=== PATIENT | male | born 1955 | race Caucasian/White ===

== ENCOUNTER 2019-08-14 18:06 | Emergency (ER) | payer MEDICARE ==
[2019-08-14 18:20] VITALS: BP 163/92; PULSE 94; RESP 18; TEMP 97.8
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
[2019-08-14 19:30] LABS: Appearance,Urine Clear (Clear); Bacteria,Urine Many /hpf; Bilirubin,Urine Negative (Negative); Blood,Urine Trace (Negative); Color,Urine Light Yellow; Glucose,Urine (UA) Negative (Negative); Ketones,Urine Negative (Negative); Leukocyte Esterase,Urine Large (Negative); Nitrite,Urine Negative (Negative); PH, Urine 6.5 (5.0-8.0); Protein,Urine Negative (Negative); RBC,Urine 3 /hpf (0-5); Specific Gravity,Urine 1.003 (1.001-1.035); Urobilinogen,Urine <2.0 mg/dL (<2.0); WBC,Urine 20 /hpf (0-5)
[2019-08-14] MEDS ORDERED: cefTRIAXone 1,000 MG VIAL (IM USE) IM STA (19:33)
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
--- NOTE | 2019-08-14 20:01 | CT ---
EXAMINATION TYPE: CT brain dbine wo con DATE OF EXAM: 08/14/2019 COMPARISON: None HISTORY: Pain after fall CT DLP: 1392.3 mGycm Automated exposure control for dose reduction was used. TECHNIQUE: CT scan of the head and cervical spine are performed without contrast. FINDINGS: There is no acute intracranial hemorrhage, mass effect, or midline shift identified. The ventricles and sulci are within normal limits in size. The globes are intact and the visualized sin uses are clear. Cervical spine is visualized in its entirety from C1 through upper thoracic levels and demonstrates s atisfactory alignment without evidence of acute fracture or dislocation. Prevertebral soft tissue ap pears within normal limits. Advanced multilevel spondylosis changes are noted. The C1-C2 articulation is unremarkable. IMPRESSION: 1. There is no acute fracture or dislocation evident in the cervical spine. 2. No acute intracranial hemorrhage, mass effect, or midline shift is seen.
== END 2019-08-14 20:21 | disposition home or self-care (01) ==
LOC: EEVIPCON 18:06 → EC 18:06
DX: N39.0 Urinary tract infection, site not specified (principal); Z85.528 Personal history of other malignant neoplasm of kidney; Z87.828 Personal history of other (healed) physical injury and trauma; W01.10XA Fall on same level from slipping, tripping and stumbling with subsequent striking against unspecified object, initial encounter; Y92.129 Unspecified place in nursing home as the place of occurrence of the external cause
CPT/HCPCS: 99284; 96372; 81001; 87086; 87077; 87186; 71046; 72125; 70450; J0696

== ENCOUNTER 2020-12-09 09:32 | Inpatient (IN) | payer OTHER, MEDICARE ==
--- NOTE | 2020-12-09 09:49 | ED ---
General Adult HPI - General Chief complaint: Psychiatric Symptoms Stated complaint: Paranoid Time Seen by Provider: 12/09/20 09:33 Source: patient, EMS, RN notes reviewed, old records reviewed Mode of arrival: EMS Limitations: no limitations - History of Present Illness Initial comments: 64-year-old male presenting for psychiatric evaluation. Patient has requested mental health evaluation. He states that he's having visual hallucinations and is feeling angry. He states that he wants to throw a chair through the window. He denies any suicidal or homicidal ideation. He states he was seen by his home care nurse and had requested paramedics transport port to the hospital for psychiatric evaluation. He denies physical complaints. He's been compliant with his medications. He denies alcohol or illicit drugs. - Related Data Previous Rx's Medication Instructions Recorded Sulfamethox-Tmp 800-160Mg [Bactrim 1 each PO Q12HR #20 tab 08/14/19 Ds] Allergies Allergy/AdvReac Type Severity Reaction Status Date / Time No Known Allergies Allergy Verified 12/09/20 09:40 Review of Systems ROS Statement: Those systems with pertinent positive or pertinent negative responses have been documented in the HPI. ROS Other: All systems not noted in ROS Statement are negative. Past Medical History Past Medical History: Hypertension Additional Past Medical History / Comment(s): renal CA with surgery History of Any Multi-Drug Resistant Organisms: Unobtainable Past Surgical History: Orthopedic Surgery Additional Past Surgical History / Comment(s): cryoablation for renal CA Past Psychological History: Schizophrenia Smoking Status: Never smoker Past Alcohol Use History: None Reported Past Drug Use History: None Reported General Exam Limitations: no limitations General appearance: alert, in no apparent distress Head exam: Present: atraumatic, normocephalic Eye exam: Present: normal appearance, PERRL ENT exam: Present: normal exam Neck exam: Present: normal inspection. Absent: tenderness, meningismus Respiratory exam: Present: normal lung sounds bilaterally. Absent: respiratory distress, wheezes Cardiovascular Exam: Present: regular rate, normal rhythm GI/Abdominal exam: Present: soft. Absent: distended, tenderness, guarding Extremities exam: Present: normal inspection, normal capillary refill. Absent: pedal edema Neurological exam: Present: alert, oriented X3, CN II-XII intact. Absent: motor sensory deficit Psychiatric exam: Present: depressed, flat affect. Absent: homicidal ideation, suicidal ideation Skin exam: Present: warm, dry, intact Course Vital Signs 12/09/20 09:33 Temperature 98.6 F Pulse Rate 99 Respiratory 18 Rate Blood Pressure 155/89 O2 Sat by Pulse 100 Oximetry Medical Decision Making - Medical Decision Making Patient has been evaluated by EPS and felt to require inpatient psychiatric evaluation and treatment. Laboratory testing did reveal mild UTI and has been started on antibiotics. He will be admitted to this institution. - Lab Data Result diagrams: 12/09/20 09:54 12/09/20 09:54 Lab Results 12/09/20 12/09/20 12/09/20 Range/Units 09:54 09:54 09:54 WBC 7.0 (3.8-10.6) k/uL RBC 5.04 (4.30-5.90) m/uL Hgb 13.7 (13.0-17.5) gm/dL Hct 42.7 (39.0-53.0) % MCV 84.8 (80.0-100.0) fL MCH 27.3 (25.0-35.0) pg MCHC 32.2 (31.0-37.0) g/dL RDW 14.4 (11.5-15.5) % Plt Count 244 (150-450) k/uL MPV 7.2 Neutrophils % 79 % Lymphocytes % 14 % Monocytes % 4 % Eosinophils % 1 % Basophils % 0 % Neutrophils # 5.6 (1.3-7.7) k/uL Lymphocytes # 1.0 (1.0-4.8) k/uL Monocytes # 0.3 (0-1.0) k/uL Eosinophils # 0.1 (0-0.7) k/uL Basophils # 0.0 (0-0.2) k/uL Sodium 130 L (137-145) mmol/L Potassium 4.2 (3.5-5.1) mmol/L Chloride 97 L (98-107) mmol/L Carbon Dioxide 22 (22-30) mmol/L Anion Gap 11 mmol/L BUN 8 L (9-20) mg/dL Creatinine 0.91 (0.66-1.25) mg/dL Est GFR (CKD-EPI)AfAm >90 (>60 ml/min/1.73 sqM) Est GFR (CKD-EPI)NonAf 88 (>60 ml/min/1.73 sqM) Glucose 110 H (74-99) mg/dL Calcium 9.2 (8.4-10.2) mg/dL Total Bilirubin 0.5 (0.2-1.3) mg/dL AST 22 (17-59) U/L ALT 14 (4-49) U/L Alkaline Phosphatase 86 (38-126) U/L Total Protein 7.0 (6.3-8.2) g/dL Albumin 4.7 (3.5-5.0) g/dL Urine Color Yellow Urine Appearance Cloudy (Clear) Urine pH 7.0 (5.0-8.0) Ur Specific [place] 1.007 (1.001-1.035) Urine Protein Negative (Negative) Urine Glucose (UA) Negative (Negative) Urine Ketones Negative (Negative) Urine Blood Trace H (Negative) Urine Nitrite Positive (Negative) Urine Bilirubin Negative (Negative) Urine Urobilinogen <2.0 (<2.0) mg/dL Ur Leukocyte Esterase Large H (Negative) Urine RBC 7 H (0-5) /hpf Urine WBC 80 H (0-5) /hpf Urine Bacteria Many H (None) /hpf Urine Mucus Few H (None) /hpf Urine Opiates Screen (NotDetected) Ur Oxycodone Screen (NotDetected) Urine Methadone Screen (NotDetected) Ur Propoxyphene Screen (NotDetected) Ur Barbiturates Screen (NotDetected) U Tricyclic Antidepress (NotDetected) Ur Phencyclidine Scrn (NotDetected) Ur Amphetamines Screen (NotDetected) U Methamphetamines Scrn (NotDetected) U Benzodiazepines Scrn (NotDetected) Urine Cocaine Screen (NotDetected) U Marijuana (THC) Screen (NotDetected) Serum Alcohol <10 mg/dL Coronavirus (PCR) (Not Detectd) 12/09/20 12/09/20 Range/Units 09:54 09:54 WBC (3.8-10.6) k/uL RBC (4.30-5.90) m/uL Hgb (13.0-17.5) gm/dL Hct (39.0-53.0) % MCV (80.0-100.0) fL MCH (25.0-35.0) pg MCHC (31.0-37.0) g/dL RDW (11.5-15.5) % Plt Count (150-450) k/uL MPV Neutrophils % % Lymphocytes % % Monocytes % % Eosinophils % % Basophils % % Neutrophils # (1.3-7.7) k/uL Lymphocytes # (1.0-4.8) k/uL Monocytes # (0-1.0) k/uL Eosinophils # (0-0.7) k/uL Basophils # (0-0.2) k/uL Sodium (137-145) mmol/L Potassium (3.5-5.1) mmol/L Chloride (98-107) mmol/L Carbon Dioxide (22-30) mmol/L Anion Gap mmol/L BUN (9-20) mg/dL Creatinine (0.66-1.25) mg/dL Est GFR (CKD-EPI)AfAm (>60 ml/min/1.73 sqM) Est GFR (CKD-EPI)NonAf (>60 ml/min/1.73 sqM) Glucose (74-99) mg/dL Calcium (8.4-10.2) mg/dL Total Bilirubin (0.2-1.3) mg/dL AST (17-59) U/L ALT (4-49) U/L Alkaline Phosphatase (38-126) U/L Total Protein (6.3-8.2) g/dL Albumin (3.5-5.0) g/dL Urine Color Urine Appearance (Clear) Urine pH (5.0-8.0) Ur Specific [place] (1.001-1.035) Urine Protein (Negative) Urine Glucose (UA) (Negative) Urine Ketones (Negative) Urine Blood (Negative) Urine Nitrite (Negative) Urine Bilirubin (Negative) Urine Urobilinogen (<2.0) mg/dL Ur Leukocyte Esterase (Negative) Urine RBC (0-5) /hpf Urine WBC (0-5) /hpf Urine Bacteria (None) /hpf Urine Mucus (None) /hpf Urine Opiates Screen Detected H (NotDetected) Ur Oxycodone Screen Not Detected (NotDetected) Urine Methadone Screen Not Detected (NotDetected) Ur Propoxyphene Screen Not Detected (NotDetected) Ur Barbiturates Screen Not Detected (NotDetected) U Tricyclic Antidepress Detected H (NotDetected) Ur Phencyclidine Scrn Not Detected (NotDetected) Ur Amphetamines Screen Not Detected (NotDetected) U Methamphetamines Scrn Not Detected (NotDetected) U Benzodiazepines Scrn Not Detected (NotDetected) Urine Cocaine Screen Not Detected (NotDetected) U Marijuana (THC) Screen Not Detected (NotDetected) Serum Alcohol mg/dL Coronavirus (PCR) Not Detected (Not Detectd) Disposition Clinical Impression: Acute psychosis, UTI (urinary tract infection) Disposition: ADMITTED IP TO THIS [facility] Condition: Stable Is patient prescribed a controlled substance at d/c from ED?: No Referrals: None,Stated [Primary Care Provider] - 1-2 days Decision to Admit Reason: Admit from EC Decision Date: 12/09/20 Decision Time: 12:03
[2020-12-09 10:09] LABS: Basophils % (A) 0 %; Eosinophils # (A) 0.1 k/uL (0-0.7); Eosinophils % (A) 1 %; HCT 42.7 % (39.0-53.0); HGB 13.7 gm/dL (13.0-17.5); Lymphocytes % (A) 14 %; MCH 27.3 pg (25.0-35.0); MCHC 32.2 g/dL (31.0-37.0); MCV 84.8 fL (80.0-100.0); Mean Platelet Volume 7.2; Monocytes # (A) 0.3 k/uL (0-1.0); Monocytes % (A) 4 %; Neutrophils # (A) 5.6 k/uL (1.3-7.7); Neutrophils % (A) 79 %; Platelet Count 244 k/uL (150-450); RBC 5.04 m/uL (4.30-5.90); RDW 14.4 % (11.5-15.5)
[2020-12-09 10:22] LABS: Appearance,Urine Cloudy (Clear); Bacteria,Urine Many /hpf; Bilirubin,Urine Negative (Negative); Blood,Urine Trace (Negative); Color,Urine Yellow; Glucose,Urine (UA) Negative (Negative); Ketones,Urine Negative (Negative); Leukocyte Esterase,Urine Large (Negative); Mucus,Urine Few /hpf; Nitrite,Urine Positive (Negative); Protein,Urine Negative (Negative); RBC,Urine 7 /hpf (0-5); Specific Gravity,Urine 1.007 (1.001-1.035); Urobilinogen,Urine <2.0 mg/dL (<2.0); WBC,Urine 80 /hpf (0-5)
[2020-12-09 10:27] LABS: Amphetamine Screen,Urine Not Detected (NotDetected); Barbiturate Screen,Urine Not Detected (NotDetected); Benzodiazepines Screen,Urine Not Detected (NotDetected); Cocaine Screen,Urine Not Detected (NotDetected); Methadone Screen, Urine Not Detected (NotDetected); Opiate Screen,Urine Detected (NotDetected); Oxycodone Screen, Urine Not Detected (NotDetected); Phencyclidine Screen,Urine Not Detected (NotDetected); Tricyclic Antidepressant,Urine Detected (NotDetected); Urn Cannabinoid Scrn Not Detected (NotDetected)
[2020-12-09 10:28] LABS: ALT 14 U/L (4-49); AST 22 U/L (17-59); African American GFR (CKD) >90 (>60 ml/min/1.73 sqM); Albumin 4.7 g/dL (3.5-5.0); Alcohol <10 mg/dL; Alkaline Phosphatase 86 U/L (38-126); Anion Gap 11 mmol/L; Blood Urea Nitrogen 8 mg/dL (9-20); Calcium 9.2 mg/dL (8.4-10.2); Carbon Dioxide 22 mmol/L (22-30); Chloride 97 mmol/L (98-107); Glucose 110 mg/dL (74-99); Non-African American GFR(CKD) 88 (>60 ml/min/1.73 sqM); Potassium 4.2 mmol/L (3.5-5.1); Sodium 130 mmol/L (137-145); Total Bilirubin 0.5 mg/dL (0.2-1.3)
[2020-12-09] MEDS ORDERED: CEPHALEXIN 500 MG CAP PO STA (10:32)
[2020-12-09] MEDS ORDERED: LORazepam 1 MG TAB PO PRN (14:08)
[2020-12-09] MEDS ORDERED: MAG HYDROX/AL HYDROX/SIMETH 30 ML CUP PO PRN (14:08)
[2020-12-09] MEDS ORDERED: MAGNESIUM HYDROXIDE 2,400 MG/10 ML CUP PO PRN (14:08)
[2020-12-09] MEDS ORDERED: MELATONIN 5 MG TABLET PO PRN (14:11)
[2020-12-09] MEDS ORDERED: LORazepam 2 MG/ML INJ IM PRN (14:11)
[2020-12-09] MEDS: cloZAPine 100 MG TAB PO SCH ×2 (16:28→21:59)
[2020-12-09] MEDS: PANTOPRAZOLE 40 MG TABLET PO SCH (16:29)
[2020-12-09] MEDS: clonazePAM 1 MG TAB PO SCH (21:59)
[2020-12-10] MEDS: clonazePAM 1 MG TAB PO SCH ×2 (08:55→22:29)
[2020-12-10] MEDS: PANTOPRAZOLE 40 MG TABLET PO SCH ×2 (08:55→17:26)
[2020-12-10] MEDS: cloZAPine 100 MG TAB PO SCH ×3 (08:55→22:29)
[2020-12-10] MEDS: amLODIPine 2.5 MG TAB PO SCH (08:55)
[2020-12-10] MEDS: ACETAMINOPHEN TAB 325 MG TAB PO PRN (08:56)
[2020-12-10] MEDS: SENNOSIDES-DOCUSATE SODIUM 1 EACH TAB PO PRN (08:56)
[2020-12-10] MEDS ORDERED: SERTRALINE 50 MG TAB PO SCH (09:00)
--- NOTE | 2020-12-10 10:12 | P.CONS ---
History of Present Illness - Reason for Consult Consult date: 12/10/20 Medical management - History of Present Illness This is 64-year-old white male who has been admitted to the mental health unit for psychiatric evaluation. Patient has been having visual hallucinations. At the time of examination patient does not appear to be in distress. He denies chest pain or shortness of breath. Denies abdominal pain nausea or vomiting. Review of Systems 10 systems reviewed, pertinent positive and negative findings as in the HPI. No chest pain, no abdominal pain Past Medical History Past Medical History: Hypertension Additional Past Medical History / Comment(s): renal CA with surgery History of Any Multi-Drug Resistant Organisms: Unobtainable Past Surgical History: Orthopedic Surgery Additional Past Surgical History / Comment(s): cryoablation for renal CA Past Psychological History: Schizophrenia Smoking Status: Never smoker Past Alcohol Use History: None Reported Past Drug Use History: None Reported Medications and Allergies Home Medications Medication Instructions Recorded Confirmed Type Acetaminophen Tab [Tylenol Tab] 1,000 mg PO TID PRN 12/09/20 12/09/20 History Melatonin 5 mg PO HS PRN 12/09/20 12/09/20 History Omeprazole 40 mg PO AC-BID 12/09/20 12/09/20 History Sennosides/Docusate Sodium [Senna 2 tab PO DAILY PRN 12/09/20 12/09/20 History Plus 8.6-50 mg Tablet] Sertraline [Zoloft] 50 mg PO DAILY 12/09/20 12/09/20 History amLODIPine [Norvasc] 2.5 mg PO DAILY 12/09/20 12/09/20 History cloZAPine [Clozaril] 100 mg PO DAILY@0900 12/09/20 12/09/20 History cloZAPine [Clozaril] 200 mg PO DAILY@1600 12/09/20 12/09/20 History cloZAPine [Clozaril] 400 mg PO HS@2100 12/09/20 12/09/20 History clonazePAM [KlonoPIN] 1 mg PO BID 12/09/20 12/09/20 History Allergies Allergy/AdvReac Type Severity Reaction Status Date / Time No Known Allergies Allergy Verified 12/09/20 15:22 Physical Exam Vitals: Vital Signs Temp Pulse Pulse Pulse Resp BP BP 12/10/20 09:00 96.1 F L 95 20 118/65 12/09/20 16:30 95 128/75 12/09/20 15:39 98.0 F 12/09/20 14:54 96.2 F L 94 16 157/100 Constitutional: No acute distress, conversant, pleasant Eyes: Anicteric sclerae, moist conjunctiva ENMT: NC/AT,Oropharynx clear, no erythema, exudates Neck:Supple, FROM, no masses, or JVD Lungs: Clear to auscultation, Clear to percussion, Normal respiratory effort, no accessory muscle use Cardiovascular: Heart regular in rate and rhythm, No murmurs, gallops, or rubs no peripheral edema Abdominal: Soft Nontender, nom distended, no guarding, no rebound or rigidity Skin: Normal temperature, tone, texture, turgor Extremities:No digital cyanosis No clubbing, Pedal pulses intact and symmetrical Radial pulses intact and symmetrical Normal gait and station, No calf tenderness Psychiatric: Alert and oriented Neuro: Muscles Strength 5/5 in all 4 extremities Results CBC & Chem 7: 12/09/20 09:54 12/09/20 09:54 Labs: Abnormal Lab Results - Last 24 Hours (Table) 12/09/20 12/09/20 12/09/20 Range/Units 09:54 09:54 09:54 Sodium 130 L (137-145) mmol/L Chloride 97 L (98-107) mmol/L BUN 8 L (9-20) mg/dL Glucose 110 H (74-99) mg/dL Urine Blood Trace H (Negative) Ur Leukocyte Esterase Large H (Negative) Urine RBC 7 H (0-5) /hpf Urine WBC 80 H (0-5) /hpf Urine Bacteria Many H (None) /hpf Urine Mucus Few H (None) /hpf Urine Opiates Screen Detected H (NotDetected) U Tricyclic Antidepress Detected H (NotDetected) Microbiology - Last 24 Hours (Table) 12/09/20 09:54 Urine Culture - Preliminary Urine,Voided Assessment and Plan Plan: 1. Depression: Management per psychiatry: Continue Zoloft and clonazepine 2. Anxiety: Continue Ativan when necessary 3. Essential hypertension: Continue Norvasc 4. Acute UTI unspecified organism on location: Start oral Bactrim for 5 days Thank you for the consultation
[2020-12-10] MEDS: SULFAMETHOX-TMP 800-160MG 1 EACH TAB PO SCH ×2 (10:21→22:29)
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
[2020-12-10 16:13] LABS: Hemoglobin A1C 5.6 % (4.0-6.0)
[2020-12-11] MEDS ORDERED: SERTRALINE 50 MG TAB PO SCH (09:00)
[2020-12-11] MEDS: amLODIPine 2.5 MG TAB PO SCH (09:05)
[2020-12-11] MEDS: PANTOPRAZOLE 40 MG TABLET PO SCH ×2 (09:05→17:54)
[2020-12-11] MEDS: cloZAPine 100 MG TAB PO SCH ×3 (09:06→21:21)
[2020-12-11] MEDS: SULFAMETHOX-TMP 800-160MG 1 EACH TAB PO SCH ×2 (09:06→21:21)
[2020-12-11] MEDS: clonazePAM 1 MG TAB PO SCH ×2 (09:06→21:21)
[2020-12-11] MEDS: ACETAMINOPHEN TAB 325 MG TAB PO PRN ×2 (09:07→15:15)
[2020-12-11] MEDS: SENNOSIDES-DOCUSATE SODIUM 1 EACH TAB PO PRN (10:23)
--- NOTE | 2020-12-11 11:36 | P.PN ---
Progress Note - Text Progress Note Date: 12/11/20 Interval History: Patient was seen resting in bed and was directable and agreeable to speak with short story writer in the office. The patient reports that he is feeling better today. He states that he was able to sleep well. He denies any issues with his appetite. He is not reporting any suicidal or homicidal ideation, intention, and/or plan. The patient is not reporting any auditory or visual hallucinations but states that he feels like someone is constantly poking at him. The patient also continues to make some sabianist statements believing that he will be the one to home back the end times. The patient is otherwise adherent with his medications and is not reporting any significant side effects. He has been able to participate in group and milieu activities. Mental Status Exam: General Appearance: Patient appears to be stated age is alert, directable, and cooperative. Good hygiene and grooming. Behavior: Patient is calmly seated without any agitated behavior. Psychomotor slowing is evident. Speech: Patient's speech is fluent and nonpressured. Mood/Affect: Mood is improving mildly, affect is congruent and blunted. Suicidality/Homicidality: Patient denies having any suicidal or homicidal ideation intent or plan. Perceptions: Patient denies any visual hallucinations and denies any auditory hallucinations. The patient does endorse tactile hallucinations. Though content/process: Catholic preoccupation and grandiose delusions are endorsed. Thought process is typically linear and logical unless he goes on his rent about his sabianist preoccupation. Memory and concentration: AOX3, grossly intact for the purposes of this session Judgment and insight: Improving mildly Assessment Schizophrenia Plan: -Patient continues to meet criteria for inpatient psychiatric admission for symptom stabilization and safety. Patient has signed adult voluntary form and medication consent and was placed in patient's chart. -Medications: Clozaril 100 mg by mouth every morning, 200 mg by mouth every afternoon, and 400 mg by mouth daily at bedtime. ANC WNL. Klonopin 1 mg by mouth twice a day for anxiety Discontinue Zoloft due to concern for hyponatremia. Bactrim for management of urinary tract infection. -When necessary Ativan and Haldol for agitation/aggression. -SW on board for discharge planning. Encouraged the patient to participate in milieu.
[2020-12-12] MEDS: ACETAMINOPHEN TAB 500 MG TAB PO PRN ×2 (02:47→15:15)
[2020-12-12 07:07] LABS: Basophils % (A) 1 %; Eosinophils # (A) 0.3 k/uL (0-0.7); Eosinophils % (A) 4 %; HCT 44.7 % (39.0-53.0); Lymphocytes # (A) 1.1 k/uL (1.0-4.8); Lymphocytes % (A) 19 %; MCH 28.8 pg (25.0-35.0); MCHC 33.5 g/dL (31.0-37.0); Mean Platelet Volume 7.2; Monocytes # (A) 0.5 k/uL (0-1.0); Monocytes % (A) 8 %; Neutrophils # (A) 4.1 k/uL (1.3-7.7); Neutrophils % (A) 68 %; Platelet Count 241 k/uL (150-450); RDW 14.4 % (11.5-15.5); WBC 6.1 k/uL (3.8-10.6)
[2020-12-12 07:28] LABS: Calcium 9.3 mg/dL (8.4-10.2)
[2020-12-12] MEDS: cloZAPine 100 MG TAB PO SCH ×4 (07:59→21:26)
[2020-12-12] MEDS: PANTOPRAZOLE 40 MG TABLET PO SCH ×2 (07:59→15:15)
[2020-12-12] MEDS: amLODIPine 2.5 MG TAB PO SCH (08:03)
[2020-12-12] MEDS: SULFAMETHOX-TMP 800-160MG 1 EACH TAB PO SCH ×2 (08:03→21:26)
[2020-12-12] MEDS: clonazePAM 1 MG TAB PO SCH ×2 (08:04→20:46)
--- NOTE | 2020-12-12 11:04 | P.PN ---
Progress Note - Text Progress Note Date: 12/12/20 Interval History: Patient reports that he is feeling okay today. He expresses that he needs his pain medication but does not endorse any specific site for pain. He is currently not reporting any suicidal or homicidal ideation, intention, and/or plan. He is not reporting any auditory or visual hallucinations. He is denying any paranoia or other delusions. Patient reports that he has been eating and sleeping well. He has been adherent with his medications and is not reporting any chest pain, shortness of breath, tremors, or other notable side effects aside from excessive drooling. As per discussion with the patient's guardian, the patient is apparently sounding as if he is at baseline. Anticipated discharge tomorrow. Mental Status Exam: General Appearance: Patient appears to be stated age is alert, directable, and cooperative. Good hygiene and grooming. Behavior: Patient is calmly seated without any agitated behavior. Psychomotor slowing is evident. Speech: Patient's speech is fluent and nonpressured. Mood/Affect: Mood is improving mildly, affect is congruent and blunted. Suicidality/Homicidality: Patient denies having any suicidal or homicidal ideation intent or plan. Perceptions: Patient denies any visual hallucinations and denies any auditory hallucinations. Though content/process: The patient does not endorse any delusional thought content today. Thought process appears linear and logical and short conversation. Memory and concentration: AOX3, grossly intact for the purposes of this session Judgment and insight: Improving mildly Assessment Schizophrenia Plan: -Patient continues to meet criteria for inpatient psychiatric admission for symptom stabilization and safety. Patient has signed adult voluntary form and medication consent and was placed in patient's chart. -Medications: Clozaril 100 mg by mouth every morning, 200 mg by mouth every afternoon, and 400 mg by mouth daily at bedtime. ANC WNL. Klonopin 1 mg by mouth twice a day for anxiety Bactrim for management of urinary tract infection. -When necessary Ativan and Haldol for agitation/aggression. -SW on board for discharge planning. Encouraged the patient to participate in milieu.
[2020-12-13] MEDS: ACETAMINOPHEN TAB 500 MG TAB PO PRN ×2 (02:18→12:03)
[2020-12-13 02:26] VITALS: RESP 14
[2020-12-13] MEDS: PANTOPRAZOLE 40 MG TABLET PO SCH (08:03)
[2020-12-13] MEDS: SULFAMETHOX-TMP 800-160MG 1 EACH TAB PO SCH (08:03)
[2020-12-13] MEDS: amLODIPine 2.5 MG TAB PO SCH (08:05)
[2020-12-13 08:06] VITALS: BP 112/62; PULSE 92
[2020-12-13] MEDS: clonazePAM 1 MG TAB PO SCH (08:06)
[2020-12-13] MEDS ORDERED: CYCLOBENZAPRINE 5 MG TAB PO STA (09:09)
[2020-12-13 09:16] VITALS: TEMP 97.7
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
== END 2020-12-13 13:05 | disposition home or self-care (01) | DRG 885 ==
LOC: EC 09:32 → 3MHU 14:02
PROVIDERS: ADMIT Psychiatry & Neurology Psychiatry; ATTEND Psychiatry & Neurology Psychiatry
DX: F20.9 Schizophrenia, unspecified (principal); E87.1 Hypo-osmolality and hyponatremia; N39.0 Urinary tract infection, site not specified; F41.9 Anxiety disorder, unspecified; G47.00 Insomnia, unspecified; I10 Essential (primary) hypertension; Z79.899 Other long term (current) drug therapy; Z85.528 Personal history of other malignant neoplasm of kidney; Z20.822 Contact with and (suspected) exposure to COVID-19
CPT/HCPCS: 36415; 80048; 80053; 80061; 80306; 80320; 81001; 82075; 83036; 84443; 85025; 87077; 87086; 87186; 87635; 99285

== ENCOUNTER 2021-04-27 08:52 | Inpatient (IN) | payer OTHER, MEDICARE ==
--- NOTE | 2021-04-27 09:05 | ED ---
General Adult HPI - General Chief complaint: Abdominal Pain Stated complaint: SOB Time Seen by Provider: 04/27/21 08:55 Source: patient, EMS, RN notes reviewed, old records reviewed Mode of arrival: EMS Limitations: no limitations - History of Present Illness Initial comments: This is a 65-year-old male who presents to the emergency department with past medical history significant for schizophrenia. Patient also states he has high blood pressure. Patient comes in today stating that he was feeling a little weak a little bit short of breath and also he felt like he was getting cabin fever in his apartment so he wanted to get out. Patient states he called EMS and brought him in. Patient denies any chest pain or palpitations. Patient denies any fever chills or cough. Patient states he may have had a run-in with a COVID positive patient. Patient denies any abdominal pain patient denies nausea vomiting or diarrhea. Patient states every day when he wakes up he feels weak for the first couple hours in the day and he usually resolves. Patient states today with a cabin fever sensation he felt as though he wanted to get out. - Related Data Home Medications Medication Instructions Recorded Confirmed Acetaminophen Tab [Tylenol] 1,000 mg PO TID PRN 12/09/20 12/09/20 Omeprazole 40 mg PO AC-BID 12/09/20 12/09/20 Sennosides/Docusate Sodium [Senna 2 tab PO DAILY PRN 12/09/20 12/09/20 Plus 8.6-50 mg Tablet] Previous Rx's Medication Instructions Recorded Melatonin 5 mg PO HS PRN 30 Days tab 12/13/20 Sulfamethox-Tmp 800-160Mg [Bactrim 1 each PO BID 2 Days #4 tab 12/13/20 DS 800-160 mg] amLODIPine [Norvasc] 2.5 mg PO DAILY 30 Days tab 12/13/20 cloZAPine [Clozaril] 100 mg PO DAILY@0900 30 Days tab 12/13/20 cloZAPine [Clozaril] 200 mg PO DAILY@1600 30 Days tab 12/13/20 cloZAPine [Clozaril] 400 mg PO HS@2100 30 Days tab 12/13/20 clonazePAM [KlonoPIN] 1 mg PO BID 30 Days tab 12/13/20 Allergies Allergy/AdvReac Type Severity Reaction Status Date / Time No Known Allergies Allergy Verified 04/27/21 09:06 Review of Systems ROS Statement: Those systems with pertinent positive or pertinent negative responses have been documented in the HPI. ROS Other: All systems not noted in ROS Statement are negative. Past Medical History Past Medical History: Hypertension Additional Past Medical History / Comment(s): renal CA with surgery History of Any Multi-Drug Resistant Organisms: Unobtainable Past Surgical History: Orthopedic Surgery Additional Past Surgical History / Comment(s): cryoablation for renal CA Past Psychological History: Schizophrenia Smoking Status: Never smoker Past Alcohol Use History: None Reported Past Drug Use History: None Reported General Exam - General Exam Comments Initial Comments: GENERAL: Patient is well-developed and well-nourished. Patient is nontoxic and well- hydrated and is in no acute distress. ENT: Neck is soft and supple. No significant lymphadenopathy is noted. Oropharynx is clear. Moist mucous membranes. Neck has full range of motion without eliciting any pain. EYES: The sclera were anicteric and conjunctiva were pink and moist. Extraocular movements were intact and pupils were equal round and reactive to light. Eyelids were unremarkable. PULMONARY: Unlabored respirations. Good breath sounds bilaterally. No audible rales rhonchi or wheezing was noted. CARDIOVASCULAR: There is a regular rate and rhythm without any murmurs gallops or rubs. ABDOMEN: Soft and nontender with normal bowel sounds. Patient has a small ventral hernia SKIN: Skin is clear with no lesions or rashes and otherwise unremarkable. NEUROLOGIC: Patient is alert and oriented x3. Cranial nerves II through XII are grossly intact. Motor and sensory are also intact. Normal speech, volume and content. Symmetrical smile. MUSCULOSKELETAL: Normal extremities with adequate strength and full range of motion. No lower extremity swelling or edema. No calf tenderness. LYMPHATICS: No significant lymphadenopathy is noted PSYCHIATRIC: Normal psychiatric evaluation. Limitations: no limitations Course Vital Signs 04/27/21 08:54 Temperature 96.9 F L Pulse Rate 96 Respiratory 17 Rate Blood Pressure 135/92 O2 Sat by Pulse 94 L Oximetry Medical Decision Making - Medical Decision Making EKG shows sinus rhythm with occasional PVC at a rate of 92 bpm OR interval 236 dresses 98 QT interval 370 QTC is 467. Patient's EKG shows no ST segment elevat ion or depression. Chest x-ray shows no acute normalities. New. Patient's urine shows no infectio n. I gave the patient 2 g of Rocephin. Patient's troponin was elevated 0.5 though the patient is not expressing any chest pain started the patient on heparin. I spoke with the [facility] they agreed to admit the patient to the patient I wrote admitting orders I consult cardiology continued heparin and aspirin and Nitropaste on the floor. - Lab Data Result diagrams: 04/27/21 10:31 04/27/21 10:31 Lab Results 04/27/21 04/27/21 04/27/21 Range/Units 10:31 10: 10:31 WBC 14.5 H (3.8-10.6) k/uL RBC 5.25 (4.30-5.90) m/uL Hgb 14.3 (13.0-17.5) gm/dL Hct 45.8 (39.0-53.0) % MCV 87.2 (80.0-100.0) fL MCH 27.3 (25.0-35.0) pg MCHC 31.3 (31.0-37.0) g/dL RDW 14.3 (11.5-15.5) % Plt Count 288 (150-450) k/uL MPV 7.7 Neutrophils % 89 % Lymphocytes % 6 % Monocytes % 5 % Eosinophils % 1 % Basophils % 0 % Neutrophils # 12.9 H (1.3-7.7) k/uL Lymphocytes # 0.8 L (1.0-4.8) k/uL Monocytes # 0.7 (0-1.0) k/uL Eosinophils # 0.1 (0-0.7) k/uL Basophils # 0.0 (0-0.2) k/uL Sodium 135 L (137-145) mmol/L Potassium 4.4 (3.5-5.1) mmol/L Chloride 100 (98-107) mmol/L Carbon Dioxide 24 (22-30) mmol/L Anion Gap 11 mmol/L BUN 14 (9-20) mg/dL Creatinine 0.97 (0.66-1.25) mg/dL Est GFR (CKD-EPI)AfAm >90 (>60 ml/min/1.73 sqM) Est GFR (CKD-EPI)NonAf 82 (>60 ml/min/1.73 sqM) Glucose 113 H (74-99) mg/dL Calcium 9.6 (8.4-10.2) mg/dL Total Bilirubin 0.5 (0.2-1.3) mg/dL AST 24 (17-59) U/L ALT 18 (4-49) U/L Alkaline Phosphatase 76 (38-126) U/L Troponin I (0.000-0.034) ng/mL Total Protein 6.9 (6.3-8.2) g/dL Albumin 4.4 (3.5-5.0) g/dL Urine Color Yellow Urine Appearance Cloudy (Clear) Urine pH 6.5 (5.0-8.0) Ur Specific [place] 1.014 (1.001-1.035) Urine Protein 1+ H (Negative) Urine Glucose (UA) Negative (Negative) Urine Ketones Negative (Negative) Urine Blood Trace H (Negative) Urine Nitrite Negative (Negative) Urine Bilirubin Negative (Negative) Urine Urobilinogen <2.0 (<2.0) mg/dL Ur Leukocyte Esterase Large H (Negative) Urine RBC 2 (0-5) /hpf Urine WBC 36 H (0-5) /hpf Ur Squamous Epith Cells 8 H (0-4) /hpf Urine Bacteria Many H (None) /hpf Urine Mucus Few H (None) /hpf Coronavirus (PCR) (Not Detectd) 04/27/21 04/27/21 Range/Units 10:31 10:31 WBC (3.8-10.6) k/uL RBC (4.30-5.90) m/uL Hgb (13.0-17.5) gm/dL Hct (39.0-53.0) % MCV (80.0-100.0) fL MCH (25.0-35.0) pg MCHC (31.0-37.0) g/dL RDW (11.5-15.5) % Plt Count (150-450) k/uL MPV Neutrophils % % Lymphocytes % % Monocytes % % Eosinophils % % Basophils % % Neutrophils # (1.3-7.7) k/uL Lymphocytes # (1.0-4.8) k/uL Monocytes # (0-1.0) k/uL Eosinophils # (0-0.7) k/uL Basophils # (0-0.2) k/uL Sodium (137-145) mmol/L Potassium (3.5-5.1) mmol/L Chloride (98-107) mmol/L Carbon Dioxide (22-30) mmol/L Anion Gap mmol/L BUN (9-20) mg/dL Creatinine (0.66-1.25) mg/dL Est GFR (CKD-EPI)AfAm (>60 ml/min/1.73 sqM) Est GFR (CKD-EPI)NonAf (>60 ml/min/1.73 sqM) Glucose (74-99) mg/dL Calcium (8.4-10.2) mg/dL Total Bilirubin (0.2-1.3) mg/dL AST (17-59) U/L ALT (4-49) U/L Alkaline Phosphatase (38-126) U/L Troponin I 0.524 H* (0.000-0.034) ng/mL Total Protein (6.3-8.2) g/dL Albumin (3.5-5.0) g/dL Urine Color Urine Appearance (Clear) Urine pH (5.0-8.0) Ur Specific [place] (1.001-1.035) Urine Protein (Negative) Urine Glucose (UA) (Negative) Urine Ketones (Negative) Urine Blood (Negative) Urine Nitrite (Negative) Urine Bilirubin (Negative) Urine Urobilinogen (<2.0) mg/dL Ur Leukocyte Esterase (Negative) Urine RBC (0-5) /hpf Urine WBC (0-5) /hpf Ur Squamous Epith Cells (0-4) /hpf Urine Bacteria (None) /hpf Urine Mucus (None) /hpf Coronavirus (PCR) Not Detected (Not Detectd) Critical Care Time Critical Care Time: Yes Total Critical Care Time: 35 Disposition Clinical Impression: Non-STEMI (non-ST elevated myocardial infarction), Urinary tract infection Disposition: ADMITTED IP TO THIS HOSP Referrals: None,Stated [Primary Care Provider] - 1-2 days Time of Disposition: 12:19
[2021-04-27] MEDS ORDERED: SODIUM CHLORIDE 0.9% 500 ML 500 ML IV STA (09:31)
--- NOTE | 2021-04-27 10:51 | XR ---
EXAMINATION TYPE: XR chest 2V DATE OF EXAM: 04/27/2021 COMPARISON: Chest x-ray August 14, 2019 HISTORY: Weakness. TECHNIQUE: Frontal and lateral views of the chest are obtained. FINDINGS: Improved inspiration. There is no focal air space opacity, pleural effusion, or pneumothor ax seen. The cardiac silhouette size is within normal limits. The osseous structures are intact. IMPRESSION: No acute process.
[2021-04-27 10:52] LABS: Basophils % (A) 0 %; Eosinophils # (A) 0.1 k/uL (0-0.7); Eosinophils % (A) 1 %; HCT 45.8 % (39.0-53.0); HGB 14.3 gm/dL (13.0-17.5); Lymphocytes # (A) 0.8 k/uL (1.0-4.8); Lymphocytes % (A) 6 %; MCH 27.3 pg (25.0-35.0); MCHC 31.3 g/dL (31.0-37.0); MCV 87.2 fL (80.0-100.0); Mean Platelet Volume 7.7; Monocytes # (A) 0.7 k/uL (0-1.0); Monocytes % (A) 5 %; Neutrophils # (A) 12.9 k/uL (1.3-7.7); Neutrophils % (A) 89 %; Platelet Count 288 k/uL (150-450); RBC 5.25 m/uL (4.30-5.90); RDW 14.3 % (11.5-15.5); WBC 14.5 k/uL (3.8-10.6)
[2021-04-27 11:13] LABS: ALT 18 U/L (4-49); AST 24 U/L (17-59); African American GFR (CKD) >90 (>60 ml/min/1.73 sqM); Albumin 4.4 g/dL (3.5-5.0); Alkaline Phosphatase 76 U/L (38-126); Anion Gap 11 mmol/L; Blood Urea Nitrogen 14 mg/dL (9-20); Calcium 9.6 mg/dL (8.4-10.2); Carbon Dioxide 24 mmol/L (22-30); Chloride 100 mmol/L (98-107); Glucose 113 mg/dL (74-99); Non-African American GFR(CKD) 82 (>60 ml/min/1.73 sqM); Potassium 4.4 mmol/L (3.5-5.1); Sodium 135 mmol/L (137-145); Total Bilirubin 0.5 mg/dL (0.2-1.3); Total Protein 6.9 g/dL (6.3-8.2)
[2021-04-27 11:32] LABS: Appearance,Urine Cloudy (Clear); Bacteria,Urine Many /hpf; Bilirubin,Urine Negative (Negative); Blood,Urine Trace (Negative); Color,Urine Yellow; Glucose,Urine (UA) Negative (Negative); Ketones,Urine Negative (Negative); Leukocyte Esterase,Urine Large (Negative); Mucus,Urine Few /hpf; Nitrite,Urine Negative (Negative); PH, Urine 6.5 (5.0-8.0); Protein,Urine 1+ (Negative); RBC,Urine 2 /hpf (0-5); Specific Gravity,Urine 1.014 (1.001-1.035); Squamous Epithelial Cell,Urine 8 /hpf (0-4); Urobilinogen,Urine <2.0 mg/dL (<2.0); WBC,Urine 36 /hpf (0-5)
[2021-04-27] MEDS ORDERED: cefTRIAXone IN SWFI 1,000 MG/10 ML SYRINGE IVP STA (11:51)
[2021-04-27] MEDS ORDERED: HEPARIN SODIUM 1,000 UN/ML (10ML VL) IV ONE (12:18)
[2021-04-27] MEDS ORDERED: ASPIRIN 81 MG PO STA (12:20)
[2021-04-27] MEDS ORDERED: NITROGLYCERIN SL TABS 0.4 MG TAB SUBLINGUAL PRN (12:20)
[2021-04-27] MEDS ORDERED: HEPARIN SOD,PORK IN 0.45% NACL 25,000 UNIT in 0.45% NACL 1 250ML.BAG IV SCH (12:30)
[2021-04-27] MEDS: NITROGLYCERIN OINT 1 INCH/GM PACKET TOPICAL SCH ×2 (18:26→23:02)
[2021-04-27] MEDS ORDERED: CYCLOBENZAPRINE 5 MG TAB PO PRN (18:50)
[2021-04-27] MEDS ORDERED: SENNOSIDES-DOCUSATE SODIUM 1 EACH TAB PO PRN (18:50)
[2021-04-27] MEDS ORDERED: MELATONIN 5 MG TABLET PO PRN (18:50)
--- NOTE | 2021-04-27 20:21 | P.HPIM ---
History of Present Illness H&P Date: 04/27/21 Chief Complaint: Abdominal pain 65-year-old male who presents to the emergency department with past medical history significant for schizophrenia. Patient also states he has high blood pressure. Patient comes in today stating that he was feeling a little weak a little bit short of breath and also he felt like he was getting cabin fever in his apartment so he wanted to get out. Patient states he called EMS and brought him in. Patient denies any chest pain or palpitations. Patient denies any fever chills or cough. Patient states he may have had a run-in with a COVID positive patient. Patient denies any abdominal pain patient denies nausea vomiting or diarrhea. Patient states every day when he wakes up he feels weak for the first couple hours in the day and he usually resolves. Patient states today with a cabin fever sensation he felt as though he wanted to get out. EKG shows sinus rhythm with occasional PVC at a rate of 92 bpm UT interval 236 dresses 98 QT interval 370 QTC is 467. Patient's EKG shows no ST segment elevation or depression. Chest x-ray shows no acute normalities. New. Patient's urine shows no infection. Patient received Rocephin 2 g IV in ED. Patient's troponin was elevated 0.5 though the patient is not expressing any chest pain started the patient on heparin. Review of Systems REVIEW OF SYSTEMS: CONSTITUTIONAL: No fever, no malaise, no fatigue. HEENT: No recent visual problems or hearing problems. Denied any sore throat. CARDIOVASCULAR: No chest pain, orthopnea, PND, no palpitations, no syncope. PULMONARY: No shortness of breath, no cough, no hemoptysis. GASTROINTESTINAL: No diarrhea, no nausea, no vomiting, no abdominal pain. NEUROLOGICAL: No headaches, no weakness, no numbness. HEMATOLOGICAL: Denies any bleeding or petechiae. GENITOURINARY: Denies any burning micturition, frequency, or urgency. MUSCULOSKELETAL/RHEUMATOLOGICAL: Denies any joint pain, swelling, or any muscle pain. ENDOCRINE: Denies any polyuria or polydipsia. The rest of the 14-point review of systems is negative. Past Medical History Past Medical History: Hypertension Additional Past Medical History / Comment(s): renal CA with surgery History of Any Multi-Drug Resistant Organisms: Unobtainable Past Surgical History: Orthopedic Surgery Additional Past Surgical History / Comment(s): cryoablation for renal CA Past Psychological History: Schizophrenia Smoking Status: Never smoker Past Alcohol Use History: None Reported Past Drug Use History: None Reported Medications and Allergies Home Medications Medication Instructions Recorded Confirmed Type Acetaminophen Tab [Tylenol] 1,000 mg PO TID PRN 12/09/20 04/27/21 History Omeprazole 40 mg PO AC-BID 12/09/20 04/27/21 History Sennosides/Docusate Sodium [Senna 2 tab PO DAILY PRN 12/09/20 04/27/21 History Plus 8.6-50 mg Tablet] Melatonin 5 mg PO HS PRN 30 Days tab 12/13/20 04/27/21 Rx amLODIPine [Norvasc] 2.5 mg PO DAILY 30 Days tab 12/13/20 04/27/21 Rx cloZAPine [Clozaril] 100 mg PO DAILY@0900 30 Days tab 12/13/20 04/27/21 Rx cloZAPine [Clozaril] 200 mg PO DAILY@1600 30 Days tab 12/13/20 04/27/21 Rx cloZAPine [Clozaril] 400 mg PO HS@2100 30 Days tab 12/13/20 04/27/21 Rx clonazePAM [KlonoPIN] 1 mg PO BID 30 Days tab 12/13/20 04/27/21 Rx Cyclobenzaprine [Flexeril] 5 mg PO HS PRN 04/27/21 04/27/21 History Diclofenac Sodium 50 mg PO BID PRN 04/27/21 04/27/21 History Methyl Salicylate/Menthol 1 applic TOPICAL QID PRN 04/27/21 04/27/21 History [Thera-Gesic Creme] Sertraline [Zoloft] 50 mg PO DAILY 04/27/21 04/27/21 History Tamsulosin HCl [Flomax] 0.4 mg PO DAILY 04/27/21 04/27/21 History Allergies Allergy/AdvReac Type Severity Reaction Status Date / Time No Known Allergies Allergy Verified 04/27/21 12:29 Physical Exam Vitals: Vital Signs Temp Pulse Resp BP Pulse Ox 04/27/21 08:54 96.9 F L 96 17 135/92 94 L Intake and Output 04/26/21 04/27/21 04/27/21 22:59 06:59 14:59 Other: Weight 89.811 kg - Constitutional General appearance: Present: average body habitus, cooperative, no acute distress - EENT Eyes: Present: anicteric sclerae, EOMI, PERRLA, normal appearance ENT: Present: hearing grossly normal, normal oropharynx Ears: bilateral: normal - Neck Neck: Present: normal ROM. Absent: lymphadenopathy, rigidity, thyromegaly Carotids: negative: bruit present Thyroid: bilateral: normal size, negative: enlarged, nodule - Respiratory Respiratory: bilateral: CTA, negative: rales, rhonchi, wheezing - Cardiovascular Rhythm: regular Heart sounds: normal: S1, S2 Abnormal Heart Sounds: Absent: systolic murmur, diastolic murmur - Gastrointestinal General gastrointestinal: Present: normal bowel sounds, soft. Absent: distended, organomegaly, tenderness - Genitourinary Genitourinary Comment(s): deferred - Integumentary Integumentary: Present: normal turgor. Absent: jaundiced, rash, ulcer - Neurologic Neurologic: Present: CNII-XII intact. Absent: focal deficits - Musculoskeletal Musculoskeletal: Present: gait normal, strength equal bilaterally - Psychiatric Psychiatric: Present: A&O x's 3, appropriate affect, intact judgment & insight Results CBC & Chem 7: 04/27/21 10:31 04/27/21 10:31 Labs: Abnormal Lab Results - Last 24 Hours (Table) 04/27/21 04/27/21 04/27/21 Range/Units 10:31 10:31 10:31 WBC 14.5 H (3.8-10.6) k/uL Neutrophils # 12.9 H (1.3-7.7) k/uL Lymphocytes # 0.8 L (1.0-4.8) k/uL Sodium 135 L (137-145) mmol/L Glucose 113 H (74-99) mg/dL Troponin I (0.000-0.034) ng/mL Urine Protein 1+ H (Negative) Urine Blood Trace H (Negative) Ur Leukocyte Esterase Large H (Negative) Urine WBC 36 H (0-5) /hpf Ur Squamous Epith Cells 8 H (0-4) /hpf Urine Bacteria Many H (None) /hpf Urine Mucus Few H (None) /hpf 04/27/21 Range/Units 10:31 WBC (3.8-10.6) k/uL Neutrophils # (1.3-7.7) k/uL Lymphocytes # (1.0-4.8) k/uL Sodium (137-145) mmol/L Glucose (74-99) mg/dL Troponin I 0.524 H* (0.000-0.034) ng/mL Urine Protein (Negative) Urine Blood (Negative) Ur Leukocyte Esterase (Negative) Urine WBC (0-5) /hpf Ur Squamous Epith Cells (0-4) /hpf Urine Bacteria (None) /hpf Urine Mucus (None) /hpf Assessment and Plan Assessment: 1. Non-ST elevation [place]; patient is started on IV heparin; we will trend troponin; order 2-D echo; consult cardiology 2. UTI; continue with Rocephin 1 g IV daily until final urine culture is avai lable 3. Hypertension; continue with home dose of amlodipine 2.5 mg daily 4. Chronic back pain; patient remains on Flexeril 5 mg daily 5. Depression; Zoloft 50 mg daily 6. BPH; Flomax 0.4 milligrams daily DVT prophylaxis; SCDs/IV heparin CODE STATUS; full code
[2021-04-27] MEDS: clonazePAM 1 MG TAB PO SCH (20:28)
[2021-04-27] MEDS: cloZAPine 100 MG TAB PO SCH (20:29)
[2021-04-27] MEDS ORDERED: HEPARIN SODIUM 1,000 UN/ML (10ML VL) IV PRN (20:36)
[2021-04-28 02:47] LABS: Basophils # (A) 0.1 k/uL (0-0.2); Basophils % (A) 1 %; Eosinophils # (A) 0.2 k/uL (0-0.7); Eosinophils % (A) 3 %; HGB 14.1 gm/dL (13.0-17.5); Lymphocytes # (A) 1.9 k/uL (1.0-4.8); Lymphocytes % (A) 21 %; MCH 27.5 pg (25.0-35.0); Mean Platelet Volume 7.6; Monocytes # (A) 0.5 k/uL (0-1.0); Monocytes % (A) 6 %; Neutrophils # (A) 6.3 k/uL (1.3-7.7); Neutrophils % (A) 69 %; Platelet Count 262 k/uL (150-450); RBC 5.12 m/uL (4.30-5.90); RDW 14.2 % (11.5-15.5); WBC 9.1 k/uL (3.8-10.6)
[2021-04-28 03:10] LABS: African American GFR (CKD) >90 (>60 ml/min/1.73 sqM); Anion Gap 7 mmol/L; Blood Urea Nitrogen 14 mg/dL (9-20); Calcium 9.1 mg/dL (8.4-10.2); Carbon Dioxide 26 mmol/L (22-30); Chloride 102 mmol/L (98-107); Glucose 107 mg/dL (74-99); Non-African American GFR(CKD) >90 (>60 ml/min/1.73 sqM); Potassium 4.2 mmol/L (3.5-5.1); Sodium 135 mmol/L (137-145)
[2021-04-28] MEDS: NITROGLYCERIN OINT 1 INCH/GM PACKET TOPICAL SCH ×4 (06:00→23:15)
[2021-04-28] MEDS: PANTOPRAZOLE 40 MG TABLET PO SCH ×2 (06:02→15:53)
[2021-04-28] MEDS: ACETAMINOPHEN TAB 325 MG TAB PO PRN (06:22)
[2021-04-28] MEDS: HEPARIN SODIUM,PORCINE/PF 5,000 UNIT/0.5 ML SYRINGE SQ SCH ×3 (08:02→20:52)
[2021-04-28] MEDS: SERTRALINE 50 MG TAB PO SCH (08:02)
[2021-04-28] MEDS: TAMSULOSIN 0.4 MG CAP.ER.24H PO SCH (08:02)
[2021-04-28] MEDS: clonazePAM 1 MG TAB PO SCH ×2 (08:02→20:50)
[2021-04-28] MEDS: amLODIPine 2.5 MG TAB PO SCH (08:02)
[2021-04-28] MEDS: cloZAPine 100 MG TAB PO SCH ×3 (08:03→20:51)
[2021-04-28] MEDS ORDERED: ASPIRIN 325 MG TAB PO SCH (09:00)
[2021-04-28 12:10] LABS: Chol/HDL Ratio 3.53 Ratio; LDL Cholesterol,Calculated 98.3 mg/dL (0.0-131.0)
--- NOTE | 2021-04-28 12:34 | CONS ---
CONSULTATION REASON FOR CONSULTATION: Elevated troponins. This is a 65-year-old gentleman who came into the emergency room with multiple nondescript issues. He has history of underlying schizophrenia and also hypertension. He came in a bit confused, slightly short of breath and he felt he was having cabin fever and wanted to get out. He did not have any chest pain or shortness of breath. He was concerned that he may have had some COVID positive interaction with another patient. He did not have any major symptoms other than feeling claustrophobic. His troponin was elevated and is in the equivocal range with a pattern that does not suggest myocardial injury. He has history of renal cell cancer, details are unclear. He is resting comfortably without symptoms at the time of my evaluation. PAST MEDICAL HISTORY: 1. Underlying schizophrenia. 2. Hypertension. 3. History of renal cell cancer status post cryoablation, details unavailable. ALLERGIES: None. MEDICATIONS: Norvasc 2.5 mg daily. He also takes some Flexeril and Flomax 0.4 mg daily and Klonopin. PHYSICAL EXAMINATION: On examination, blood pressure is 130/70, pulse rate 70 per minute, regular. HEENT unremarkable. Fundus was not examined by me. Neck is supple. There is no JVD. I do not hear a carotid bruit. Heart exam reveals S1, S2 heard normally. There is no significant murmur. Lungs are clear. Abdomen is soft, nontender. Lower extremities reveal normal pulses, no edema. Central system is normal. EKG revealed sinus mechanism without any significant ST-T changes. Initial EKG had some isolated PVCs. Troponin levels suggest no myocardial injury, they are about 0.8 and 0.5. The patient also has a urinary tract infection and is on antibiotics for this. IMPRESSION: 1. Hypertension under fair control. 2. Urinary tract infection, on antibiotics. 3. Underlying schizophrenia. 4. Elevated troponin, not suggestive of myocardial injury. RECOMMENDATIONS: I am recommending that we discontinue IV heparin, place him on subcu heparin, perform echocardiogram tomorrow and the patient can be discharged after treatment of his UTI. No intervention is necessary from a cardiac standpoint at this time. Will review the echo and make further recommendations. Thank you very much for the consult. MMODL / IJN: [id number] /
--- NOTE | 2021-04-28 20:05 | P.PN ---
Subjective Progress Note Date: 04/28/21 Principal diagnosis: Non-ST elevation [place] UTI 65-year-old male who presents to the emergency department with past medical history significant for schizophrenia. Patient also states he has high blood pressure. Patient comes in today stating that he was feeling a little weak a little bit short of breath and also he felt like he was getting cabin fever in his apartment so he wanted to get out. Patient states he called EMS and brought him in. Patient denies any chest pain or palpitations. Patient denies any fever chills or cough. Patient states he may have had a run-in with a COVID positive patient. Patient denies any abdominal pain patient denies nausea vomiting or diarrhea. Patient states every day when he wakes up he feels weak for the first couple hours in the day and he usually resolves. Patient states today with a cabin fever sensation he felt as though he wanted to get out. EKG shows sinus rhythm with occasional PVC at a rate of 92 bpm RI interval 236 dresses 98 QT interval 370 QTC is 467. Patient's EKG shows no ST segment el evation or depression. Chest x-ray shows no acute normalities. New. Patient's urine shows no infec tion. Patient received Rocephin 2 g IV in ED. Patient's troponin was elevated 0.5 though the patient is not expressing any chest pain started the patient on heparin. 04/28/2021 Patient is seen and evaluated resting in bed; no further complaints of chest pain or shortness of breath Patient has been evaluated by cardiology and IV heparin has been discontinued; patient is recommended echocardiogram tomorrow with possible discharge if echocardiogram is stable and follow-up with cardiology as an outpatient Patient has been treated with IV Rocephin for UTI; urine culture reveals greater than 100,000 skin or genital liam; we will complete a three-day off empiric IV antibiotic therapy with possible discontinuation tomorrow if patient remains stable Objective - Vital Signs Vital signs: Vital Signs Temp 97.7 F 04/28/21 08:17 Pulse 78 04/28/21 08:17 Resp 20 04/28/21 08:17 BP 122/76 04/28/21 08:17 Pulse Ox 95 04/28/21 08:17 Intake & Output 04/27/21 04/28/21 04/28/21 18:59 06:59 18:59 Intake Total 82 Balance 82 Weight 89.811 kg 92 kg Intake: Intake, IV Titration 82 Amount Heparin Sod,Pork in 0.45% 82 NaCl 25,000 unit In 0.45 % NaCl 1 250ml.bag @ 11. 134 UNITS/KG/HR 10 mls/hr IV .Q24H [facility] Rx#: [id number] Other: Voiding Method Toilet Toilet Urinal Urinal # Voids 2 2 # Bowel Movements 2 - Exam - Constitutional General appearance: Present: average body habitus, cooperative, no acute distress - EENT Eyes: Present: anicteric sclerae, EOMI, PERRLA, normal appearance ENT: Present: hearing grossly normal, normal oropharynx Ears: bilateral: normal - Neck Neck: Present: normal ROM. Absent: lymphadenopathy, rigidity, thyromegaly Carotids: negative: bruit present Thyroid: bilateral: normal size, negative: enlarged, nodule - Respiratory Respiratory: bilateral: CTA, negative: rales, rhonchi, wheezing - Cardiovascular Rhythm: regular Heart sounds: normal: S1, S2 Abnormal Heart Sounds: Absent: systolic murmur, diastolic murmur - Gastrointestinal General gastrointestinal: Present: normal bowel sounds, soft. Absent: distended, organomegaly, tenderness - Genitourinary Genitourinary Comment(s): deferred - Integumentary Integumentary: Present: normal turgor. Absent: jaundiced, rash, ulcer - Neurologic Neurologic: Present: CNII-XII intact. Absent: focal deficits - Musculoskeletal Musculoskeletal: Present: gait normal, strength equal bilaterally - Psychiatric Psychiatric: Present: A&O x's 3, appropriate affect, intact judgment & insight - Labs CBC & Chem 7: 04/28/21 02:18 04/28/21 02:18 Labs: Abnormal Lab Results - Last 24 Hours (Table) 04/27/21 04/27/21 04/27/21 Range/Units 10:31 10:31 10:31 WBC 14.5 H (3.8-10.6) k/uL Neutrophils # 12.9 H (1.3-7.7) k/uL Lymphocytes # 0.8 L (1.0-4.8) k/uL APTT (22.0-30.0) sec Sodium 135 L (137-145) mmol/L Glucose 113 H (74-99) mg/dL Troponin I (0.000-0.034) ng/mL Urine Protein 1+ H (Negative) Urine Blood Trace H (Negative) Ur Leukocyte Esterase Large H (Negative) Urine WBC 36 H (0-5) /hpf Ur Squamous Epith Cells 8 H (0-4) /hpf Urine Bacteria Many H (None) /hpf Urine Mucus Few H (None) /hpf 04/27/21 04/27/21 04/27/21 Range/Units 10:31 14:11 17:49 WBC (3.8-10.6) k/uL Neutrophils # (1.3-7.7) k/uL Lymphocytes # (1.0-4.8) k/uL APTT (22.0-30.0) sec Sodium (137-145) mmol/L Glucose (74-99) mg/dL Troponin I 0.524 H* 0.851 H* 0.597 H* (0.000-0.034) ng/mL Urine Protein (Negative) Urine Blood (Negative) Ur Leukocyte Esterase (Negative) Urine WBC (0-5) /hpf Ur Squamous Epith Cells (0-4) /hpf Urine Bacteria (None) /hpf Urine Mucus (None) /hpf 04/27/21 04/28/21 04/28/21 Range/Units 19:15 02:18 02:18 WBC (3.8-10.6) k/uL Neutrophils # (1.3-7.7) k/uL Lymphocytes # (1.0-4.8) k/uL APTT 31.3 H 61.8 H (22.0-30.0) sec Sodium 135 L (137-145) mmol/L Glucose 107 H (74-99) mg/dL Troponin I (0.000-0.034) ng/mL Urine Protein (Negative) Urine Blood (Negative) Ur Leukocyte Esterase (Negative) Urine WBC (0-5) /hpf Ur Squamous Epith Cells (0-4) /hpf Urine Bacteria (None) /hpf Urine Mucus (None) /hpf 04/28/21 Range/Units 06:51 WBC (3.8-10.6) k/uL Neutrophils # (1.3-7.7) k/uL Lymphocytes # (1.0-4.8) k/uL APTT 32.8 H (22.0-30.0) sec Sodium (137-145) mmol/L Glucose (74-99) mg/dL Troponin I (0.000-0.034) ng/mL Urine Protein (Negative) Urine Blood (Negative) Ur Leukocyte Esterase (Negative) Urine WBC (0-5) /hpf Ur Squamous Epith Cells (0-4) /hpf Urine Bacteria (None) /hpf Urine Mucus (None) /hpf Microbiology - Last 24 Hours (Table) 04/27/21 10:31 Urine Culture - Preliminary Urine,Voided Assessment and Plan Assessment: 1. Non-ST elevation [place]; patient is started on IV heparin; we will trend troponin; order 2-D echo; consult cardiology 2. UTI; continue with Rocephin 1 g IV daily until final urine culture is available 3. Hypertension; continue with home dose of amlodipine 2.5 mg daily 4. Chronic back pain; patient remains on Flexeril 5 mg daily 5. Depression; Zoloft 50 mg daily 6. BPH; Flomax 0.4 milligrams daily DVT prophylaxis; SCDs/IV heparin CODE STATUS; full code
[2021-04-29] MEDS: NITROGLYCERIN OINT 1 INCH/GM PACKET TOPICAL SCH ×4 (05:21→23:38)
[2021-04-29] MEDS: PANTOPRAZOLE 40 MG TABLET PO SCH ×2 (06:26→16:54)
[2021-04-29] MEDS: ACETAMINOPHEN TAB 325 MG TAB PO PRN ×2 (06:27→22:02)
[2021-04-29 07:53] LABS: African American GFR (CKD) >90 (>60 ml/min/1.73 sqM); Anion Gap 11 mmol/L; Blood Urea Nitrogen 14 mg/dL (9-20); Calcium 9.5 mg/dL (8.4-10.2); Carbon Dioxide 27 mmol/L (22-30); Chloride 97 mmol/L (98-107); Glucose 99 mg/dL (74-99); Non-African American GFR(CKD) 89 (>60 ml/min/1.73 sqM); Potassium 4.6 mmol/L (3.5-5.1); Sodium 135 mmol/L (137-145)
[2021-04-29] MEDS: HEPARIN SODIUM,PORCINE/PF 5,000 UNIT/0.5 ML SYRINGE SQ SCH ×2 (08:50→20:16)
[2021-04-29] MEDS ORDERED: ASPIRIN 81 MG PO SCH (09:00)
[2021-04-29] MEDS: ATORVASTATIN 20 MG TAB PO SCH (10:05)
[2021-04-29] MEDS: cloZAPine 100 MG TAB PO SCH ×3 (10:05→20:17)
[2021-04-29] MEDS: clonazePAM 1 MG TAB PO SCH ×2 (10:05→20:16)
[2021-04-29] MEDS: TAMSULOSIN 0.4 MG CAP.ER.24H PO SCH (10:06)
[2021-04-29] MEDS: SERTRALINE 50 MG TAB PO SCH (10:06)
[2021-04-29] MEDS: amLODIPine 2.5 MG TAB PO SCH (10:06)
--- NOTE | 2021-04-29 13:18 | P.PN ---
Subjective 65-year-old male with a past medical history significant for schizophrenia and hypertension. Patient presents to the emergency department with complaints of mild shortness of breath and felt like he was getting cabin fever in his apartment so he wanted to get out. EMS was called. Cardiology was consulted for elevated troponin. EKG revealed sinus mechanism, some mild ST depression in lateral leads, PVCs. Troponin was 0.5, 0.8, 0.59. Patient seen and examined at bedside, he denies any further shortness of breath. He denies any chest pain, lightheadedness, dizziness, nausea, diaphoresis. Blood pressure 137/79, heart rate 75, afebrile, maintaining oxygen saturations on room air. Laboratory data reviewed sodium 135, potassium 4.6, BUN 14, serum creatinine 0.9, triglycerides 114, LDL 98, HDL 47, cholesterol 169. GENERAL: Well-appearing, well-nourished and in no acute distress. NECK: Supple without JVD or thyromegaly. LUNGS: Breath sounds clear to auscultation bilaterally. Respiration equal and unlabored. No wheezes, rales or rhonchi. HEART: Regular rate and rhythm without murmurs, rubs or gallops. S1 and S2 heard. EXTREMITIES: Normal range of motion, no edema. No clubbing or cyanosis. Peripheral pulses intact. ASSESSMENT Elevated troponin, rise and fall pattern concern for NSTEMI Schizophrenia Hypertension History of renal cancer s/p cryoablation details unavailable PLAN -2D echocardiogram -Recommend cardiac catheterization at this time for further evaluation. Patient is agreeable -Continue aspirin, statin and amlodipine -NPO after midnight -I have discussed the risks, benefits and alternative therapies for the above- mentioned procedure and for both sedation/analgesia as well as necessary blood product administration, if indicated, as they pertain to this patient. The patient has indicated understanding and acceptance of the risks and procedures discussed. Questions have been answered appropriately and he is agreeable to move forward with the above-stated procedure. -Further recommendations pending clinical course Objective - Vital Signs Vital signs: Vital Signs Temp 98.4 F 04/29/21 04:00 Pulse 71 04/29/21 04:00 Resp 18 04/29/21 04:00 BP 127/75 04/29/21 04:00 Pulse Ox 95 04/29/21 04:00 Intake & Output 10/10/1404/29/21 04/29/21 18:59 06:59 18:59 Intake Total 725 660 Output Total 500 250 Balance 225 -250 660 Weight 89.6 kg Intake: Oral 725 660 Output: Urine 500 250 Other: Voiding Method Toilet Toilet Urinal Urinal # Voids 2 3 # Bowel Movements 2 - Labs CBC & Chem 7: 04/28/21 02:18 04/29/21 07:08 Labs: Abnormal Lab Results - Last 24 Hours (Table) 04/29/21 Range/Units 07:08 Sodium 135 L (137-145) mmol/L Chloride 97 L (98-107) mmol/L Microbiology - Last 24 Hours (Table) 04/27/21 10:31 Urine Culture - Final Urine,Voided
--- NOTE | 2021-04-29 14:15 | P.CN ---
Psychiatric Consult - . Consult date: 04/29/21 Consult:: 04/29/21 14:15 IDENTIFYING DATA: This patient is a 65-year-old single, retired, male who has a guardian who was admitted to the hospital for abdominal pain. HISTORY OF PRESENT ILLNESS: The patient presented to the hospital on 04/27/21, brought into the emergency department by EMS after endorsing shortness of breath, weakness, and "cabin fever in his apartment." The patient also expressed concern because he had a run in with a COVID positive patient. The patient was admitted medically and a . At psychiatry consult was placed to evaluate and manage the patient's known diagnosis of schizophrenia. Patient was seen at bedside. Currently, the patient is not endorsing any suicidal or homicidal ideation, and/or plan. He is not reporting any auditory or visualizations. He is denying any paranoia or other delusions. The patient expresses that he was feeling anxious and nervous after his run-in with a patient in his home that was known to have COVID. He reports feeling sick and scared and that is why he came to the hospital. This provider contacted his guardian who is also his sister Mrs Tequila Camargo. She reports no significant concerns regarding the patient's mental health. She states he has been stable a nd adherent with his medications albeit with a few episodes of elevated anxiety or fear. She expresses no desire for the patient to be admitted inpatient. PAST PSYCHIATRIC HISTORY: The patient is diagnosed with schizophrenia. The patient has had 5 prior inpatient psychiatric hospitalizations here in [place] and 1 extended hospitalization and [place]. He is currently on a regimen of Clozaril, Zoloft, and Klonopin. He is currently open to outpatient psychiatric services through the [facility]. PAST MEDICAL HISTORY: Past Medical History: Hypertension Additional Past Medical History / Comment(s): renal CA with surgery History of Any Multi-Drug Resistant Organisms: Unobtainable Past Surgical History: Orthopedic Surgery Additional Past Surgical History / Comment(s): cryoablation for renal CA Past Psychological History: Schizophrenia Smoking Status: Never smoker Past Alcohol Use History: None Reported Past Drug Use History: None Reported ALLERGIES: NO KNOWN DRUG ALLERGIES CHEMICAL DEPENDENCY HISTORY: No reported completed dependency history. FAMILY PSYCHIATRIC/SUBSTANCE USE HISTORY: No family history. SOCIAL HISTORY: Patient was born in [place] and raised in [place]. The patient reports that he has 3 sisters, one of whom is his guardian. He reports that he has never been but has 2 children, a daughter and son both in their 30s. 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 The patient's sister is his guardian. MENTAL STATUS EXAM: General Appearance: Patient appears to be stated age is alert, pleasant, and cooperative. Patient appears to have good hygiene and grooming wearing hospital gown with good eye contact. Behavior: Patient is calmly lying in bed without any agitated behavior. Speech: Patient's speech is fluent and nonpressured. Mood/Affect: Patient reports their mood is "feeling okay", affect is congruent and blunted. Suicidality/Homicidality: Patient denies having any suicidal or homicidal ideation intent or plan. Perceptions: Patient denies any visual hallucinations and denies any auditory hallucinations Though content/process: There is no evidence of any delusional thought content and thought process is linear and goal-directed. Some disorganization at baseline. Memory and concentration: AOX3, grossly intact for the purposes of this session. Can spell "WORLD" backwards Judgment and insight: Fair. Vital Signs Temp 97.9 F 04/29/21 11:39 Pulse 75 04/29/21 11:39 Resp 17 04/29/21 11:39 BP 137/79 04/29/21 11:39 Pulse Ox 98 04/29/21 11:39 Intake & Output 04/28/21 04/29/21 04/29/21 18:59 06:59 18:59 Intake Total 725 1440 Output Total 500 250 Balance 225 -250 1440 Weight 89.6 kg Intake: Oral 725 1440 Output: Urine 500 250 Other: Voiding Method Toilet Toilet Toilet Urinal Urinal Urinal # Voids 2 3 # Bowel Movements 2 Laboratory Results - Last 24 Hours 04/29/21 07:08 Sodium 135 L Potassium 4.6 Chloride 97 L Carbon Dioxide 27 Anion Gap 11 BUN 14 Creatinine 0.90 Est GFR (CKD-EPI)AfAm >90 Est GFR (CKD-EPI)NonAf 89 Glucose 99 Calcium 9.5 IMPRESSIONS: Schizophrenia Hypertension Elevated troponin Hyponatremia PLAN: -Agree with cardiac workup. EKG and ANC reviewed. Not concerning at this time for a dose change in clozaril. -At this time patient DOES NOT meet criteria for inpatient psychiatric admission. At this time, the patient is not presenting with any imminent risk of harm to self or others. Albeit he has some disorganization at baseline, the patient's schizophrenia does not appear to be at the point where it is debilitating for the patient to complete his ADLs. -Would recommend the following medication changes/additions: No medication recommendations were made at this time. Continue Zoloft, Klonopin, and Clozaril. -Psychiatry will sign off at this point, please contact with any questions. 04/29/21 14:15
[2021-04-29] MEDS: SODIUM CHLORIDE 0.9% 1,000 ML in EMPTY BAG 1 BAG IV SCH (16:55)
--- NOTE | 2021-04-29 20:24 | P.PN ---
Subjective 76-year-old woman who is transferred here from [facility] in [facility] to have admission for suspected sepsis. The patient has history of metastatic breast cancer, with metastases to the liver. She states that over the past 5 days or so she has been having increasing generalized weakness and she has also been developing some dyspnea mainly with exertion. She finally went to the other hospital there at 7 PM tonight. When she arrived there she was found to be tachycardic with a heart rate in the 130s to Neck with a respiratory rate in the 30s. There was no fever documented. Pulse ox were 95% on room air. Blood pressure initially 132/72. The patient had workup there that included a chest x-ray which did not reveal any pneumonia. A computed tomography scan of the abdomen and pelvis which revealed heterogeneous enlarged liver consistent with the metastases some diverticulosis without evidence of diverticulitis, a small umbilical hernia with only fat content, also no features suggestive of appendicitis though the appendix was not visualized. There was a small right pleural effusion noted. The patient's lab studies revealed a leukocytosis at 21,000. Patient anemic hemoglobin 8.5. Platelets normal at 184. Chemistries revealed elevated creatinine 2.33, BUN 25. CO2 12 lactic acid 14.6. Urinalysis was negative. Covid-19 negative. The patient did have IV saline 2 L bolus as well as Rocephin 1 g. 04/29/2021 This is a pleasant 65 years old male with past medical history of schizophrenia presents because of dyspnea. Found to have non-STEMI. [employer] Dealer R on the case and the plan for cardiac cath tomorrow. Currently patient denies any chest pain or dyspnea while lying in bed. This kept on aspirin 81 mg. Physical urine culture is negative therefore antibiotics for urinary infection are discontinuous as patient with no symptoms of UTI. Psychiatrist evaluated the patient and recommended to continue with same treatment of clozapine 700 mg daily in 3 divided doses with no need for any intervention. Hemodynamically stable. We'll ask for PT/OT evaluation Check echocardiogram Objective - Vital Signs Vital signs: Vital Signs Temp 97.8 F 04/29/21 16:00 Pulse 77 04/29/21 16:00 Resp 17 04/29/21 16:00 BP 144/88 04/29/21 16:00 Pulse Ox 96 04/29/21 16:00 Intake & Output 04/29/21 04/29/21 04/30/21 06:59 18:59 06:59 Intake Total 2220 Output Total 250 Balance -250 2220 Weight 89.6 kg Intake: Oral 2220 Output: Urine 250 Other: Voiding Method Toilet Toilet Urinal Urinal # Voids 2 3 # Bowel Movements 2 - Exam GENERAL: The patient is alert and oriented x3, not in any acute distress. Well developed, well nourished. HEENT: Pupils are round and equally reacting to light. EOMI. No scleral icterus. No conjunctival pallor. Normocephalic, atraumatic. No pharyngeal erythema. No thyromegaly. CARDIOVASCULAR: S1 and S2 present. No murmurs, rubs, or gallops. PULMONARY: Chest is clear to auscultation, no wheezing or crackles. ABDOMEN: Soft, nontender, nondistended, normoactive bowel sounds. No palpable organomegaly. MUSCULOSKELETAL: No joint swelling or deformity. EXTREMITIES: No cyanosis, clubbing, or pedal edema. NEUROLOGICAL: Gross neurological examination did not reveal any focal deficits. SKIN: No rashes. no petechiae. - Labs CBC & Chem 7: 04/28/21 02:18 04/29/21 07:08 Labs: Abnormal Lab Results - Last 24 Hours (Table) 04/29/21 Range/Units 07:08 Sodium 135 L (137-145) mmol/L Chloride 97 L (98-107) mmol/L Assessment and Plan Assessment: 1. Non-ST elevation [place]; planned for cardiac cath in the morning with box sealing machine catcher 2. History of schizophrenia, continue with the clozapine with no intervention. 3. Hypertension; continue with home dose of amlodipine 2.5 mg daily 4. Chronic back pain; patient remains on Flexeril 5 mg daily 5. Depression; Zoloft 50 mg daily 6. BPH; Flomax 0.4 milligrams daily DVT prophylaxis; SCDs/IV heparin PT/OT: Pending CODE STATUS; full code
[2021-04-30] MEDS: SODIUM CHLORIDE 0.9% 1,000 ML in EMPTY BAG 1 BAG IV SCH (05:06)
[2021-04-30] MEDS: NITROGLYCERIN OINT 1 INCH/GM PACKET TOPICAL SCH ×2 (05:12→11:58)
[2021-04-30] MEDS: PANTOPRAZOLE 40 MG TABLET PO SCH ×2 (06:27→16:06)
[2021-04-30] MEDS ORDERED: HEPARIN SODIUM,PORCINE 10,000 UNIT in SODIUM CHLORIDE 0.9% 1,000 ML IRRIGATION PRN (07:00)
[2021-04-30] MEDS ORDERED: HEPARIN SODIUM,PORCINE 2,500 UNIT in SODIUM CHLORIDE 0.9% 250 ML IRRIGATION PRN (07:00)
[2021-04-30] MEDS ORDERED: ASPIRIN 325 MG TAB PO STA (07:40)
[2021-04-30] MEDS: HEPARIN SODIUM,PORCINE/PF 5,000 UNIT/0.5 ML SYRINGE SQ SCH ×2 (08:24→20:04)
[2021-04-30] MEDS: TAMSULOSIN 0.4 MG CAP.ER.24H PO SCH (09:17)
[2021-04-30] MEDS: clonazePAM 1 MG TAB PO SCH ×2 (09:18→20:04)
[2021-04-30] MEDS: SERTRALINE 50 MG TAB PO SCH (09:18)
[2021-04-30] MEDS: amLODIPine 2.5 MG TAB PO SCH (09:18)
[2021-04-30] MEDS: cloZAPine 100 MG TAB PO SCH ×3 (09:18→20:04)
[2021-04-30] MEDS: ATORVASTATIN 20 MG TAB PO SCH (09:18)
[2021-04-30 09:51] LABS: African American GFR (CKD) >90 (>60 ml/min/1.73 sqM); Anion Gap 8 mmol/L; Blood Urea Nitrogen 13 mg/dL (9-20); Calcium 9.6 mg/dL (8.4-10.2); Carbon Dioxide 27 mmol/L (22-30); Chloride 99 mmol/L (98-107); Glucose 102 mg/dL (74-99); Non-African American GFR(CKD) >90 (>60 ml/min/1.73 sqM); Potassium 4.9 mmol/L (3.5-5.1); Sodium 134 mmol/L (137-145)
[2021-04-30] MEDS ORDERED: SODIUM CHLORIDE 0.9% 1,000 ML IV ONE (10:21)
[2021-04-30] MEDS ORDERED: VERAPAMIL 2.5 MG/ML 2 ML AMP ONE (10:27)
[2021-04-30] MEDS ORDERED: LIDOCAINE 1% INJ 10MG/ML (20 ML MDV) ONE (10:27)
[2021-04-30] MEDS ORDERED: HEPARIN SODIUM 1,000 UN/ML (10ML VL) ONE (10:35)
[2021-04-30] MEDS ORDERED: MIDAZOLAM 2 MG/2 ML VIAL IV ONE (10:48)
[2021-04-30] MEDS ORDERED: LIDOCAINE 1% INJ 10MG/ML (20 ML MDV) SQ ONE ×2 (10:49→10:51)
[2021-04-30] MEDS ORDERED: VERAPAMIL SYRINGE (5 MG/10 ML) INTRAARTER ONE ×3 (10:50→10:53)
[2021-04-30] MEDS: HEPARIN SODIUM 1,000 UN/ML (10ML VL) IV ONE ×2 (10:59→11:10)
[2021-04-30] MEDS ORDERED: NITROGLYCERIN 1000MCG/10ML SYRINGE INTRACORON ONE (11:19)
[2021-04-30] MEDS ORDERED: HYDROmorphone 0.5 MG/0.5 ML SYRINGE IVP ONE (11:24)
[2021-04-30] MEDS ORDERED: TICAGRELOR 90 MG TAB ONE (11:25)
--- NOTE | 2021-04-30 11:27 | P.PN ---
Subjective 76-year-old woman who is transferred here from [facility] in [facility] to have admission for suspected sepsis. The patient has history of metastatic breast cancer, with metastases to the liver. She states that over the past 5 days or so she has been having increasing generalized weakness and she has also been developing some dyspnea mainly with exertion. She finally went to the other hospital there at 7 PM tonight. When she arrived there she was found to be tachycardic with a heart rate in the 130s to Neck with a respiratory rate in the 30s. There was no fever documented. Pulse ox were 95% on room air. Blood pressure initially 132/72. The patient had workup there that included a chest x-ray which did not reveal any pneumonia. A computed tomography scan of the abdomen and pelvis which revealed heterogeneous enlarged liver consistent with the metastases some diverticulosis without evidence of diverticulitis, a small umbilical hernia with only fat content, also no features suggestive of appendicitis though the appendix was not visualized. There was a small right pleural effusion noted. The patient's lab studies revealed a leukocytosis at 21,000. Patient anemic hemoglobin 8.5. Platelets normal at 184. Chemistries revealed elevated creatinine 2.33, BUN 25. CO2 12 lactic acid 14.6. Urinalysis was negative. Covid-19 negative. The patient did have IV saline 2 L bolus as well as Rocephin 1 g. 04/29/2021 This is a pleasant 65 years old male with past medical history of schizophrenia presents because of dyspnea. Found to have non-STEMI. Water Carter R on the case and the plan for cardiac cath tomorrow. Currently patient denies any chest pain or dyspnea while lying in bed. This kept on aspirin 81 mg. Physical urine culture is negative therefore antibiotics for urinary infection are discontinuous as patient with no symptoms of UTI. Psychiatrist evaluated the patient and recommended to continue with same treatment of clozapine 700 mg daily in 3 divided doses with no need for any intervention. Hemodynamically stable. We'll ask for PT/OT evaluation Check echocardiogram 04/30/2021 Patient looks stable clinically today. Hemodynamically and vitals are stable. He is going for cardiac cath today Objective - Vital Signs Vital signs: Vital Signs Temp 98.2 F 04/30/21 08:00 Pulse 72 04/30/21 08:00 Resp 18 04/30/21 08:00 BP 125/84 04/30/21 08:00 Pulse Ox 98 04/30/21 08:00 Intake & Output 04/29/21 04/30/21 04/30/21 18:59 06:59 18:59 Intake Total 2220 Balance 2220 Weight 88.9 kg Intake: Oral 2220 Other: Voiding Method Toilet Toilet Toilet Urinal Urinal Urinal # Voids 3 1 1 # Bowel Movements 1 - Exam GENERAL: The patient is alert and oriented x3, not in any acute distress. Well developed, well nourished. HEENT: Pupils are round and equally reacting to light. EOMI. No scleral icterus. No conjunctival pallor. Normocephalic, atraumatic. No pharyngeal erythema. No thyromegaly. CARDIOVASCULAR: S1 and S2 present. No murmurs, rubs, or gallops. PULMONARY: Chest is clear to auscultation, no wheezing or crackles. ABDOMEN: Soft, nontender, nondistended, normoactive bowel sounds. No palpable organomegaly. MUSCULOSKELETAL: No joint swelling or deformity. EXTREMITIES: No cyanosis, clubbing, or pedal edema. NEUROLOGICAL: Gross neurological examination did not reveal any focal deficits. SKIN: No rashes. no petechiae. - Labs CBC & Chem 7: 04/28/21 02:18 04/30/21 08:41 Labs: Abnormal Lab Results - Last 24 Hours (Table) 04/30/21 Range/Units 08:41 Sodium 134 L (137-145) mmol/L Glucose 102 H (74-99) mg/dL Assessment and Plan Assessment: 1. 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 History of schizophrenia, continue with the clozapine with no intervention. 3. Hypertension; continue with home dose of amlodipine 2.5 mg daily 4. Chronic back pain; patient remains on Flexeril 5 mg daily 5. Depression; Zoloft 50 mg daily 6. BPH; Flomax 0.4 milligrams daily DVT prophylaxis; SCDs/IV heparin PT/OT: Pending CODE STATUS; full code
[2021-04-30] MEDS ORDERED: IOPAMIDOL-370 100ML BTL INJ ONE (11:29)
[2021-04-30] MEDS ORDERED: TICAGRELOR 90 MG TAB PO ONE (11:36)
--- NOTE | 2021-04-30 14:41 | PCN ---
PROCEDURE NOTE CARDIAC CATHETERIZATION AND PCI REPORT: DATE OF SERVICE: 04/30/2021. PROCEDURE: 1. Left heart catheterization and coronary angiography. 2. PTCA and stenting of a proximal dominant RCA with a drug-eluting stent. PERFORMED BY: Dr. Reymundo Vazquez. Moderate conscious sedation time was 38 minutes. Patient was administered Versed. Oxygen saturation, hemodynamics and EKG were monitored closely. CLINICAL INFORMATION: Mr. David Russell is a 65-year-old gentleman with schizophrenia and also mild hypertension who came into the hospital with a UTI, confusion, and also had some mild troponin elevation. Because of the pattern of troponin, he was advised cardiac catheterization. Echo revealed good systolic function. PROCEDURE NOTE: Under anesthesia and strict aseptic precautions, a 6-Estonian introducer was placed in the right radial artery. Using a JL3.5 and JR4 catheters, I performed coronary angiography, and the same right catheter was used to check LV pressures. LV gram was not performed. I noted that he had a significant 70% to 75% lesion in the mid RCA with calcification. He was advised intervention that was performed expeditiously. Following the intervention procedure, the sheath was taken out and TR band applied as per protocol, with the saturation in the fingers of the right hand of 99%. Patient tolerated the procedure well. There was a small side branch occlusion with transient chest discomfort and mild precordial ST-segment changes, and the right ventricle was being supplied by the small acute marginal branch of less than 1 mm in diameter. CARDIAC CATHETERIZATION FINDINGS: The left ventricular end-diastolic pressure was about 9 mmHg without any gradient across the aortic valve. CORONARY ANGIOGRAPHY FINDINGS: RIGHT CORONARY ARTERY: Large vessel, dominant, moderate calcification. Mid/proximal portion has about a 70% eccentric lesion, and from this lesion an acute marginal branch comes off and supplies the right ventricles. This branch is less than 1 mm. Beyond the stenotic segment, the caliber improves. Vessel bifurcates into large PLV and PDA, both of which supply a sizable amount of myocardium. No significant disease in the distal branches of the RCA. At the junction of the proximal and mid portions there is a 75% lesion with eccentric calcification. LEFT MAIN CORONARY ARTERY: Short patent vessel free of significant disease. Bifurcates into LAD and circumflex. LEFT ANTERIOR DESCENDING CORONARY ARTERY: Good-caliber vessel extends along the anterior wall, gives off septal and diagonal branches. There is a good-sized diagonal in the mid portion, supplies a sizable amount of myocardium. The LAD and diagonal both have minor irregularities. No significant disease. LEFT POSTERIOR CIRCUMFLEX CORONARY ARTERY: Technically this is a nondominant vessel. It has about a 35% proximal lesion and then it gives off an obtuse marginal branch and then runs in the AV groove as a small branch. Minor irregularities. There are two moderate-sized branches from the circumflex which have minor irregularities. No significant disease. There is a mild 40% narrowing noted in the proximal portion, best seen in the caudal projection. Left ventriculogram was not performed. FINAL IMPRESSION: This patient has a right-dominant system, 75% proximal/mid RCA calcified lesion of a very dominant RCA. The circumflex has a 40% proximal lesion. LAD has no significant disease. Normal filling pressures. No gradient. RECOMMENDATIONS: I recommended PCI of RCA that was performed in the same setting. PCI PROCEDURE DETAILS: I used a standard right Christian guide catheter to cannulate the right coronary artery and a run-through wire. Predilatation was performed with 3.0 caliber 15 mm long NC Trek balloon. There was modest improvement. I then deployed an 18 mm long 4.0 caliber Xience stent at 14 atmospheres. Patient had chest pain and also inferior ST elevations. Excellent angiographic result was achieved. The small side branch that came off from the diseased segment was occluded, and this caused mild chest pain and precordial ST elevation because this small, less than 1 mm branch was supplying the right ventricle. However, patient was asymptomatic, hemodynamically stable with good flow. Details were discussed with the patient and family. He was given Brilinta 180 mg. He also received 6000 units of heparin and he weighs about 90 kg. ACT was 302. Excellent angiographic result was achieved. The patient was sent to the room in a stable condition and will be discharged tomorrow if he remains stable. Details were discussed with the patient and family. MMODL / IJN: [id number] /
[2021-04-30] MEDS: SODIUM CHLORIDE 0.9% 1,000 ML IV SCH (16:06)
[2021-04-30] MEDS: ACETAMINOPHEN TAB 325 MG TAB PO PRN (16:06)
[2021-04-30] MEDS: TICAGRELOR 90 MG TAB PO SCH (20:04)
[2021-04-30] MEDS ORDERED: ATORVASTATIN 80 MG TAB PO SCH (21:00)
[2021-05-01] MEDS: SODIUM CHLORIDE 0.9% 1,000 ML IV SCH (03:52)
[2021-05-01 04:24] VITALS: RESP 18
[2021-05-01] MEDS: PANTOPRAZOLE 40 MG TABLET PO SCH (07:04)
[2021-05-01] MEDS ORDERED: ASPIRIN 81 MG PO SCH (09:00)
[2021-05-01 09:02] LABS: Basophils % (A) 0 %; Eosinophils # (A) 0.2 k/uL (0-0.7); Eosinophils % (A) 2 %; HCT 42.9 % (39.0-53.0); HGB 13.6 gm/dL (13.0-17.5); Lymphocytes % (A) 12 %; MCH 27.8 pg (25.0-35.0); MCHC 31.7 g/dL (31.0-37.0); MCV 87.7 fL (80.0-100.0); Mean Platelet Volume 7.5; Monocytes # (A) 0.3 k/uL (0-1.0); Monocytes % (A) 3 %; Neutrophils # (A) 6.8 k/uL (1.3-7.7); Neutrophils % (A) 82 %; Platelet Count 264 k/uL (150-450); RBC 4.89 m/uL (4.30-5.90); WBC 8.3 k/uL (3.8-10.6)
[2021-05-01 09:14] LABS: African American GFR (CKD) >90 (>60 ml/min/1.73 sqM); Anion Gap 8 mmol/L; Blood Urea Nitrogen 9 mg/dL (9-20); Calcium 8.9 mg/dL (8.4-10.2); Carbon Dioxide 26 mmol/L (22-30); Chloride 100 mmol/L (98-107); Glucose 189 mg/dL (74-99); Non-African American GFR(CKD) 89 (>60 ml/min/1.73 sqM); Potassium 4.4 mmol/L (3.5-5.1); Sodium 134 mmol/L (137-145)
[2021-05-01] MEDS ORDERED: CLOPIDOGREL 75 MG TAB PO STA (09:33)
--- NOTE | 2021-05-01 09:54 | P.PN ---
Subjective 65-year-old male with a past medical history significant for schizophrenia and hypertension. Patient presents to the emergency department with complaints of mild shortness of breath and felt like he was getting cabin fever in his apartment so he wanted to get out. EMS was called. Cardiology was consulted for elevated troponin. EKG revealed sinus mechanism, some mild ST depression in lateral leads, PVCs. Troponin was 0.5, 0.8, 0.59. Patient underwent cardiac catheterization with Dr. Vazquez on 04/30/2021 which revealed 75% stenosis in proximal/mid RCA, proximal circumflex with 40% lesion, LAD with no significant disease. Patient subsequently underwent PCI to RCA. Patient seen and examined at bedside, he is overall feeling well. He states he feels slightly lightheaded but is going to ambulate to see how he feels. He denies any chest pain, shortness of breath, dizziness, nausea, diaphoresis. He took a shower this morning. Ambulating well with no complaints. Blood pressure 140/88 HR 70s, afebrile, maintaining oxygen saturations on room air. Laboratory data reviewed cbc unremarkable, Sodium 134 K 4.4, BUN 9, Scr 0.89. Patient's echocardiogram revealed an EF 55-60%. GENERAL: Well-appearing, well-nourished and in no acute distress. NECK: Supple without JVD or thyromegaly. LUNGS: Breath sounds clear to auscultation bilaterally. Respiration equal and unlabored. No wheezes, rales or rhonchi. HEART: Regular rate and rhythm without murmurs, rubs or gallops. S1 and S2 heard. EXTREMITIES: Normal range of motion, no edema. No clubbing or cyanosis. Peripheral pulses intact. SKIN: Right radial cath site, clean, dry, 2+ pulses ASSESSMENT Elevated troponin, rise and fall pattern concern for NSTEMI s/p PCI to RCA on 04/30/21 Schizophrenia Hypertension History of renal cancer s/p cryoablation details unavailable PLAN -Continue dual antiplatelet therapy -Case management consulted for pricing of Brilinta. [facility]. We will switch him to Plavix. -Continue statin, losartan, and amlodipine. -From cardiology perspective, if patient stable, no acute events, ok to discharge today -Spoke with patient's daughter, Tequila, per his request and updated her on the patient's care -Patient to follow up with Dr. Vazquez next week, patient is scheduled on 05/07/21 for follow up appointment. Objective - Vital Signs Vital signs: Vital Signs Temp 98.3 F 05/01/21 04:00 Pulse 72 05/01/21 04:00 Resp 18 05/01/21 04:00 BP 140/88 05/01/21 04:00 Pulse Ox 96 05/01/21 04:00 Intake & Output 04/30/21 05/01/21 05/01/21 18:59 06:59 18:59 Intake Total 1640 930 240 Balance 1640 930 240 Weight 89 kg Intake: IV 200 Intake, IV Titration 450 Amount Sodium Chloride 0.9% 1, 450 000 ml @ 75 mls/hr IV . [id number] Rx#:[id number] Oral 1440 480 240 Other: Voiding Method Toilet Urinal Urinal # Voids 1 3 1 - Labs CBC & Chem 7: 05/01/21 08:01 05/01/21 08:01 Labs: Abnormal Lab Results - Last 24 Hours (Table) 04/30/21 Range/Units 08:41 Sodium 134 L (137-145) mmol/L Glucose 102 H (74-99) mg/dL
[2021-05-01] MEDS: SERTRALINE 50 MG TAB PO SCH (09:58)
[2021-05-01] MEDS: TAMSULOSIN 0.4 MG CAP.ER.24H PO SCH (09:59)
[2021-05-01] MEDS: amLODIPine 2.5 MG TAB PO SCH (09:59)
[2021-05-01] MEDS: clonazePAM 1 MG TAB PO SCH (09:59)
[2021-05-01] MEDS: HEPARIN SODIUM,PORCINE/PF 5,000 UNIT/0.5 ML SYRINGE SQ SCH (10:00)
[2021-05-01] MEDS: cloZAPine 100 MG TAB PO SCH (10:00)
[2021-05-01] MEDS: TICAGRELOR 90 MG TAB PO SCH (10:27)
[2021-05-01 14:25] VITALS: PULSE 80; TEMP 97.8
[2021-05-01 14:27] VITALS: BP 120/70
[2021-05-01] MEDS ORDERED: LOSARTAN 50 MG TAB PO SCH (21:00)
--- NOTE | 2021-05-01 21:18 | P.DS ---
Providers Date of admission: 04/27/21 12:20 Attending physician: Britton Mccartney Consults: 04/27/21 12:20 Consult Physician Urgent Consulting Provider: [facility] Consult Reason/Comments: Non-STEMI Do you want consulting provider notified?: Yes 04/28/21 19:12 Consult Physician Urgent Consulting Provider: Onofre Elizondo Reason/Comments: schizophrenia Do you want consulting provider notified?: Yes Primary care physician: Stated None Hospital Course: Diagnoses: 1. Non-ST elevation [place]; status post PCI to RCA on 04/30 2. History of schizophrenia, continue with the clozapine with no intervention. 3. Hypertension; continue with home dose of amlodipine 2.5 mg daily 4. Chronic back pain; patient remains on Flexeril 5 mg daily 5. Depression; Zoloft 50 mg daily 6. BPH; Flomax 0.4 milligrams daily Hospital course: 65-year-old male who presents to the emergency department with past medical history significant for schizophrenia. Patient also states he has high blood pressure. Patient comes in today stating that he was feeling a little weak a little bit short of breath . Patient was found to have non-STEMI and evaluated by transplant rn. Cardiac cath showed significant coronary artery disease of the RCA status post PCI and stent placement for the RCA. Patient tolerated procedure well. Patient back to baseline and on the day of discharge he denies chest pain or dyspnea. No change in urine or bowel habits or fever Psychiatrist evaluated the patient and recommended to continue with same medication Patient was started on aspirin and Plavix and the importance of dual antiplatelet therapy is explained to the patient and his public guardian Tami Patient was cleared for discharge by transplant rn Problems and management plan were discussed with the patient and he verbalized understanding and acceptance Patient was found stable and can be discharged home however he needs follow-up as an outpatient. Patient was instructed to follow up with PCP within one week and patient agrees Patient is instructed to follow up with his transplant rn Dr. zamora on 05/07 and he and his sister agree I spoke with his sister legal guardian Tami at [phone], discussed the case with her, she is aware about his condition with recommendation to continue with dual antiplatelet therapy, risks are explained. Physical exam Gen: patient is a AAOx3, no distress CVS: S1-S2, RRR, no murmur Lungs: B/L CTA, no wheezing Abdomen: soft, no distention, no tenderness, positive bowel sounds Extremity: no leg edema or induration Time spent more than 35 minutes Plan - Discharge Summary Discharge Rx Participant: No New Discharge Prescriptions: New Aspirin 81 mg PO DAILY 30 Days #30 tab Losartan [Cozaar] 50 mg PO HS 30 Days #30 tab Atorvastatin [Lipitor] 80 mg PO HS 30 Days #30 tab Clopidogrel [Plavix] 75 mg PO DAILY 30 Days #30 tab Continue Omeprazole 40 mg PO AC-BID Acetaminophen Tab [Tylenol] 1,000 mg PO TID PRN PRN Reason: Fever And/ Or Pain amLODIPine [Norvasc] 2.5 mg PO DAILY 30 Days tab cloZAPine [Clozaril] 200 mg PO DAILY@1600 30 Days tab cloZAPine [Clozaril] 400 mg PO HS@2100 30 Days tab cloZAPine [Clozaril] 100 mg PO DAILY@0900 30 Days tab Melatonin 5 mg PO HS PRN 30 Days tab PRN Reason: Insomnia Cyclobenzaprine [Flexeril] 5 mg PO HS PRN PRN Reason: Muscle Spasm Methyl Salicylate/Menthol [Thera-Gesic Creme] 1 applic TOPICAL QID PRN PRN Reason: Pain Sennosides/Docusate Sodium [Senna Plus 8.6-50 mg Tablet] 2 tab PO DAILY PRN PRN Reason: Constipation clonazePAM [KlonoPIN] 1 mg PO BID 30 Days tab Sertraline [Zoloft] 50 mg PO DAILY Tamsulosin HCl [Flomax] 0.4 mg PO DAILY Discontinued Diclofenac Sodium 50 mg PO BID PRN PRN Reason: pain or inflammation Discharge Medication List Acetaminophen Tab [Tylenol] 1,000 mg PO TID PRN 12/09/20 [History] Omeprazole 40 mg PO AC-BID 12/09/20 [History] Sennosides/Docusate Sodium [Senna Plus 8.6-50 mg Tablet] 2 tab PO DAILY PRN 12/09/20 [History] Melatonin 5 mg PO HS PRN 30 Days tab 12/13/20 [Rx] amLODIPine [Norvasc] 2.5 mg PO DAILY 30 Days tab 12/13/20 [Rx] cloZAPine [Clozaril] 100 mg PO DAILY@0900 30 Days tab 12/13/20 [Rx] cloZAPine [Clozaril] 200 mg PO DAILY@1600 30 Days tab 12/13/20 [Rx] cloZAPine [Clozaril] 400 mg PO HS@2100 30 Days tab 12/13/20 [Rx] clonazePAM [KlonoPIN] 1 mg PO BID 30 Days tab 12/13/20 [Rx] Cyclobenzaprine [Flexeril] 5 mg PO HS PRN 04/27/21 [History] Methyl Salicylate/Menthol [Thera-Gesic Creme] 1 applic TOPICAL QID PRN 04/27/21 [History] Sertraline [Zoloft] 50 mg PO DAILY 04/27/21 [History] Tamsulosin HCl [Flomax] 0.4 mg PO DAILY 04/27/21 [History] Aspirin 81 mg PO DAILY 30 Days #30 tab 04/30/21 [Rx] Atorvastatin [Lipitor] 80 mg PO HS 30 Days #30 tab 04/30/21 [Rx] Losartan [Cozaar] 50 mg PO HS 30 Days #30 tab 04/30/21 [Rx] Clopidogrel [Plavix] 75 mg PO DAILY 30 Days #30 tab 05/01/21 [Rx] Follow up Appointment(s)/Referral(s): Tonya Vazquez MD [STAFF PHYSICIAN] - 05/07/21 9:15 am None,Stated [Primary Care Provider] - 1-2 days Activity/Diet/Wound Care/Special Instructions: Cardiology Instructions After Cardiac Catheterization with Stent Placement: 1. Aspirin as anti-platelet therapy - Aspirin lessens the chance of heart attack and stroke. It helps prevent blood clots from forming, allowing the blood to flow more easily. Each day, you will take one 81 mg (non-enteric coated) tablet daily. You will be taking aspirin as a lifelong medication. Do not stop unless instructed by your doctor. -You can get this medication over the counter, that can be cheaper. 2. Anti-platelet Therapy. -In addition to aspirin, you will take ONE of the following anti-platelet medications daily. This will help prevent a clot from forming in your stent: Plavix (clopidogrel) -You will need to take your anti-platelet medicine every day for 12 months -Please consult your heart doctor before you stop this medicine. -They may want you to continue for a longer period of time. 3. Statins -A statin medication lowers cholesterol levels in the blood. This helps slow the progression of heart disease. - Please take your statin medication as prescribed by your doctor. -You may be taking one of the following statins: Lipitor (atorvastatin) You will also are on medications to control your blood pressure: Losartan and amlodipine Do not stop taking these medicines without talking to your doctor. -Take all other medicines as directed by your doctor. Do not take any extra asp irin or ibuprofen. They can increase your risk of bleeding. Many vocr-rro-ofjiqjx drugs contain aspirin. If you are unsure about what the drug contains, check with your pharmacist before taking it. -For mild discomfort, you may take plain Tylenol (acetaminophen). Follow dose directions, but do not take more than 4,000 mg of acetaminophen in 24 hours. Contact your doctor right away or go to the nearest hospital Emergency Room if you have: -Severe angina or chest pain. (This may be a sign of a problem with your stent.) -Excessive bruising, blood in urine/stool or black tarry stools. Healthy LifeStyle It is important to keep a heart healthy lifestyle. This can improve your long- term health and decrease your risk for heart attacks. -Quitting tobacco: the most important thing you can do to protect your health. -Managing your blood cholesterol, blood pressure, weight, and stress. -The importance of regular exercise. -Heart Healthy Diet Heart healthy diet Activity is restricted till you see your doctor Discharge Disposition: HOME WITH HOME HEALTH SERVICES
[2021-05-02] MEDS ORDERED: CLOPIDOGREL 75 MG TAB PO SCH (09:00)
--- NOTE | 2021-05-02 12:43 | ECHOF ---
Referral Reason:NSTEMI MEASUREMENTS -------- HEIGHT: 185.4 cm WEIGHT: 91.6 kg BP: 127/75 RVIDd: 2.9 cm (< 3.3) IVSd: 1.5 cm (0.6 - 1.1) LVIDd: 3.0 cm (3.9 - 5.3) LVPWd: 1.5 cm (0.6 - 1.1) IVSs: 2.0 cm LVIDs: 1.6 cm LVPWs: 1.9 cm LAESV Index (A-L): 22.82 ml/m Ao Diam: 3.3 cm (2.0 - 3.7) AV Cusp: 2.5 cm (1.5 - 2.6) LA Diam: 3.7 cm (2.7 - 3.8) MV EXCURSION: 14.703 mm (> 18.000) MV EF SLOPE: 60 mm/s (70 - 150) EPSS: 0.9 cm MV E Jude: 0.69 m/s MV DecT: 245 ms MV A Jude: 0.72 m/s MV E/A Ratio: 0.97 RAP: 5.00 mmHg RVSP: 11.17 mmHg FINDINGS -------- Sinus rhythm. This was a technically adequate study. The left ventricular size is normal. There is moderate concentric left ventricular hypertrophy. O verall left ventricular systolic function is normal with, an EF between 55 - 60 %. The diastolic fi lling pattern is normal for the age of the patient 13.63. The right ventricle is normal in size. Normal LA size by volume 22+/-6 ml/m2. The right atrial size is normal. Interatrial and interventricular septum intact. The aortic valve is trileaflet and appears structurally normal. There is no evidence of aortic regu rgitation. There is no evidence of aortic stenosis. There is trace mitral regurgitation. Mild tricuspid regurgitation present. There is no evidence of pulmonary hypertension. The right v entricular systolic pressure, as measured by Doppler, is 11.17mmHg. There is no pulmonic regurgitation present. The aortic root size is normal. IVC Not well visulized. There is no pericardial effusion. CONCLUSIONS -------- 1. Sinus rhythm. 2. The left ventricular size is normal. 3. There is moderate concentric left ventricular hypertrophy. 4. Overall left ventricular systolic function is normal with, an EF between 55 - 60 %. 5. The diastolic filling pattern is normal for the age of the patient 13.63 6. There is trace mitral regurgitation. 7. Mild tricuspid regurgitation present. HELP DESK TEAM LEADER: Scarlet Gimenez RDCS
== END 2021-05-01 14:56 | disposition home health service (06) | DRG 247 ==
LOC: EC 08:52 → 3SCARD 12:20
PROVIDERS: ADMIT Internal Medicine; ATTEND Internal Medicine
PROC: 027035Z Dilation of Coronary Artery, One Artery with Two Drug-eluting Intraluminal Devices, Percutaneous Approach (ICD-10-PCS; principal; 2021-04-30 10:30)
PROC: B2111ZZ Fluoroscopy of Multiple Coronary Arteries using Low Osmolar Contrast (ICD-10-PCS; principal; 2021-04-30 10:30)
PROC: 4A023N7 Measurement of Cardiac Sampling and Pressure, Left Heart, Percutaneous Approach (ICD-10-PCS; principal; 2021-04-30 10:30)
DX: I21.4 Non-ST elevation (NSTEMI) myocardial infarction (principal); E78.00 Pure hypercholesterolemia, unspecified; F20.9 Schizophrenia, unspecified; Z20.822 Contact with and (suspected) exposure to COVID-19; I25.10 Atherosclerotic heart disease of native coronary artery without angina pectoris; I10 Essential (primary) hypertension; I49.3 Ventricular premature depolarization; I25.2 Old myocardial infarction; G89.29 Other chronic pain; M54.9 Dorsalgia, unspecified; N40.0 Benign prostatic hyperplasia without lower urinary tract symptoms; F40.240 Claustrophobia; F32.9 Major depressive disorder, single episode, unspecified; Z79.899 Other long term (current) drug therapy; Z85.528 Personal history of other malignant neoplasm of kidney; Z98.890 Other specified postprocedural states
CPT/HCPCS: 36415; 71046; 80048; 80053; 80061; 81001; 84484; 85025; 85730; 87086; 87635; 93005; 93306; 93458; 96360; 96361; 99291

== ENCOUNTER 2021-05-04 20:16 | Inpatient (IN) | payer OTHER, MEDICARE ==
[2021-05-04] MEDS ORDERED: SODIUM CHLORIDE 0.9% 1,000 ML IV STA (20:52)
[2021-05-04] MEDS ORDERED: IBUPROFEN 600 MG TAB PO STA (20:52)
[2021-05-04] MEDS ORDERED: ACETAMINOPHEN TAB 500 MG TAB PO STA (20:52)
[2021-05-04 21:10] LABS: Basophils % (A) 0 %; Eosinophils # (A) 0.1 k/uL (0-0.7); Eosinophils % (A) 1 %; HCT 39.9 % (39.0-53.0); HGB 13.5 gm/dL (13.0-17.5); Lymphocytes # (A) 0.8 k/uL (1.0-4.8); Lymphocytes % (A) 5 %; MCH 28.1 pg (25.0-35.0); MCHC 33.8 g/dL (31.0-37.0); MCV 83.4 fL (80.0-100.0); Mean Platelet Volume 7.6; Monocytes # (A) 1.1 k/uL (0-1.0); Monocytes % (A) 7 %; Neutrophils # (A) 15.1 k/uL (1.3-7.7); Neutrophils % (A) 87 %; Platelet Count 285 k/uL (150-450); RBC 4.79 m/uL (4.30-5.90); RDW 14.3 % (11.5-15.5); WBC 17.3 k/uL (3.8-10.6)
[2021-05-04 21:29] LABS: ALT 17 U/L (4-49); AST 20 U/L (17-59); African American GFR (CKD) >90 (>60 ml/min/1.73 sqM); Albumin 3.7 g/dL (3.5-5.0); Alkaline Phosphatase 85 U/L (38-126); Anion Gap 8 mmol/L; Blood Urea Nitrogen 17 mg/dL (9-20); Calcium 8.7 mg/dL (8.4-10.2); Carbon Dioxide 23 mmol/L (22-30); Chloride 99 mmol/L (98-107); Glucose 101 mg/dL (74-99); Non-African American GFR(CKD) 88 (>60 ml/min/1.73 sqM); Potassium 4.1 mmol/L (3.5-5.1); Sodium 130 mmol/L (137-145); Total Bilirubin 0.9 mg/dL (0.2-1.3); Total Protein 5.9 g/dL (6.3-8.2)
[2021-05-04 21:30] LABS: Partial Thromboplastin Time 24.1 sec (22.0-30.0); Prothrombin Time 10.7 sec (9.0-12.0)
--- NOTE | 2021-05-04 21:46 | XR ---
EXAMINATION TYPE: XR chest 2V DATE OF EXAM: 05/04/2021 COMPARISON: April 27, 2021 HISTORY: Weakness TECHNIQUE: FINDINGS: Heart and mediastinum are normal. Lungs are clear. Diaphragm is normal. There are chest ronnell ds. Bony thorax is intact. IMPRESSION: Normal chest. No change.
[2021-05-04] MEDS ORDERED: SODIUM CHLORIDE 0.9% 500 ML 500 ML IV STA (22:17)
[2021-05-04] MEDS ORDERED: ACETAMINOPHEN TAB 325 MG TAB PO PRN (22:21)
[2021-05-04] MEDS ORDERED: NALOXONE 0.4 MG/ML 1 ML VIAL IV PRN (22:21)
[2021-05-04] MEDS ORDERED: MELATONIN 5 MG TABLET PO PRN (22:24)
[2021-05-04] MEDS ORDERED: SENNOSIDES-DOCUSATE SODIUM 1 EACH TAB PO PRN (22:24)
[2021-05-04] MEDS ORDERED: CYCLOBENZAPRINE 5 MG TAB PO PRN (22:24)
[2021-05-04] MEDS ORDERED: ACETAMINOPHEN TAB 500 MG TAB PO PRN (22:24)
--- NOTE | 2021-05-04 22:45 | ED ---
General Adult HPI - General Chief complaint: Weakness Stated complaint: Weakness Time Seen by Provider: 05/04/21 20:33 Source: patient, EMS, RN notes reviewed, old records reviewed Mode of arrival: EMS Limitations: altered mental status - History of Present Illness Initial comments: I evaluated the patient when he was placed in a room.Patient is a 65-year-old male with past medical history per paramedics schizophrenia, hypertension, renal cancer, recent cardiac cath 4 days ago with right-sided stenting presents emergency Department complaining of a 2 to three-day history of worsening fatigue and a fever today. Patient has a guardian who is at bedside. He does have a history of recurrent urinary tract infections. Patient is no acute complaints other than generalized fatigue and fevers. Denies any headache, focal weakness, chest pain, shortness breath, abdominal pain, nausea, vomiting, urinary complains. He states he just feels weak was found to have a fever which is why presented to the emergency prompt for evaluation. He has been compliant with all his medications. His no other acute complaints at this time. - Related Data Home Medications Medication Instructions Recorded Confirmed Acetaminophen Tab [Tylenol] 1,000 mg PO TID PRN 12/09/20 05/04/21 Omeprazole 40 mg PO AC-BID 12/09/20 05/04/21 Sennosides/Docusate Sodium [Senna 2 tab PO DAILY PRN 12/09/20 05/04/21 Plus 8.6-50 mg Tablet] Cyclobenzaprine [Flexeril] 5 mg PO HS PRN 04/27/21 05/04/21 Methyl Salicylate/Menthol 1 applic TOPICAL QID PRN 04/27/21 05/04/21 [Thera-Gesic Creme] Sertraline [Zoloft] 50 mg PO DAILY 04/27/21 05/04/21 Tamsulosin HCl [Flomax] 0.4 mg PO DAILY 04/27/21 05/04/21 cloZAPine [Clozaril] 100 mg PO DAILY@0900 05/04/21 05/04/21 Previous Rx's Medication Instructions Recorded Melatonin 5 mg PO HS PRN 30 Days tab 12/13/20 amLODIPine [Norvasc] 2.5 mg PO DAILY 30 Days tab 12/13/20 cloZAPine [Clozaril] 200 mg PO DAILY@1600 30 Days tab 12/13/20 cloZAPine [Clozaril] 400 mg PO HS@2100 30 Days tab 12/13/20 clonazePAM [KlonoPIN] 1 mg PO BID 30 Days tab 12/13/20 Aspirin 81 mg PO DAILY 30 Days #30 tab 04/30/21 Atorvastatin [Lipitor] 80 mg PO HS 30 Days #30 tab 04/30/21 Losartan [Cozaar] 50 mg PO HS 30 Days #30 tab 04/30/21 Clopidogrel [Plavix] 75 mg PO DAILY 30 Days #30 tab 05/01/21 Allergies Allergy/AdvReac Type Severity Reaction Status Date / Time No Known Allergies Allergy Verified 05/04/21 21:51 Review of Systems ROS Statement: Those systems with pertinent positive or pertinent negative responses have been documented in the HPI. Review of Systems: CONST: Endorses fever, fatigue EYES: Denies blurry vision ENT: Denies nasal congestion C/V: Denies Chest pain RESP: Denies shortness of breath GI: Denies abdominal pain : Denies dysuria SKIN: Denies rash. MSK: Denies joint pain. NEURO: Denies headache ROS Other: All systems not noted in ROS Statement are negative. Past Medical History Past Medical History: Hypertension Additional Past Medical History / Comment(s): renal CA with surgery History of Any Multi-Drug Resistant Organisms: Unobtainable Past Surgical History: Orthopedic Surgery Additional Past Surgical History / Comment(s): cryoablation for renal CA, Heart Catheterization 04/23/2021, Past Psychological History: Schizophrenia Smoking Status: Never smoker Past Alcohol Use History: None Reported Past Drug Use History: None Reported General Exam - General Exam Comments Initial Comments: General: Appears in no acute distress. HEAD: Normal with no signs of head trauma. EYES: PERRLA, EOMI, conjunctiva normal, no discharge. Pupils are 3 mm and equal bilaterally. ENT: Hearing grossly intact, normal oropharynx. Dry mucous membranes. RESPIRATORY: Clear breath sounds bilaterally. No wheezes, rales, or rhonchi. C/V: Regular rate and rhythm. S1 and S2 auscultated, no edema, peripheral pulses 2+ and intact throughout ABD: Abd is soft, nontender, nondistended EXT: Normal range of motion, no obvious deformity SKIN: No rashes or lesions observed on exposed skin. NEURO: Alert and oriented x 4. Cranial nerves II-XII intact. No focal sensory or strength deficits. No neck stiffness. Negative Brudzinski and Kernig signs. Limitations: altered mental status Course Vital Signs 05/04/21 05/04/21 05/04/21 20:18 21:01 22:30 Temperature 101.3 F H 99.1 F Pulse Rate 92 92 81 Respiratory 18 18 16 Rate Blood Pressure 130/75 128/74 90/59 O2 Sat by Pulse 95 96 92 L Oximetry Medical Decision Making - Medical Decision Making Based on the patient's presentation and physical exam, I'm concerned for poss ible acute infectious etiology for his current symptoms. His a fever of unknown etiology with a history of recurrent UTIs. Therefore we will obtain an infectious workup. Due to the fatigue could also obtain troponin, EKG, chest x- ray. He was in agreement this plan. He will be connected to continuous cardiac monitoring was here in the department. He'll be sent likely treatment with 1 L fluid bolus as well as Tylenol Motrin for antipyretic therapy. EKG showed no signs of acute ischemia. Chest x-ray showed no acute cardiopulmonary process. Dry studies were remarkable for leukocytosis of 17. Patient is a mild hyponatremia of 130. Troponin is elevated to 1.07. Covid is negative. Due to the elevated troponin, I did speak with cardiology, Dr. Perdomo. We discussed that due to his recent cardiac cath, this is likely etiology for his elevated troponin. We will trend that to ensure does not continue to increase. He does not require blood thinners at this time. On reevaluation come patient remains unchanged. Fevers improved and is now 99.1. He otherwise remains asymptomatic. I discussed the findings of the patient's laboratory studies and imaging with the patient and his guardian. I believe it is best to admit him to the hospital for fluid hydration as well as to obtain the results of the urinalysis which is still pending at this time. Patient was in agreement this plan. We will empirically treat him with 1 g of Rocephin dose. Based on prior urine cultures, prior microbes are susceptible to this. He was in agreement this plan. I spoke with the admitting team,Jonathan ALVAREZ for Dr. Rodriguez, who accepted the patient. Patient was admitted in serious condition to telemetry bed. - Lab Data Result diagrams: 05/04/21 20:50 05/04/21 20:50 Lab Results 05/04/21 05/04/21 05/04/21 Range/Units 20:50 20:50 20:50 WBC 17.3 H (3.8-10.6) k/uL RBC 4.79 (4.30-5.90) m/uL Hgb 13.5 (13.0-17.5) gm/dL Hct 39.9 (39.0-53.0) % MCV 83.4 (80.0-100.0) fL MCH 28.1 (25.0-35.0) pg MCHC 33.8 (31.0-37.0) g/dL RDW 14.3 (11.5-15.5) % Plt Count 285 (150-450) k/uL MPV 7.6 Neutrophils % 87 % Lymphocytes % 5 % Monocytes % 7 % Eosinophils % 1 % Basophils % 0 % Neutrophils # 15.1 H (1.3-7.7) k/uL Lymphocytes # 0.8 L (1.0-4.8) k/uL Monocytes # 1.1 H (0-1.0) k/uL Eosinophils # 0.1 (0-0.7) k/uL Basophils # 0.0 (0-0.2) k/uL PT 10.7 (9.0-12.0) sec INR 1.0 (<1.2) APTT 24.1 (22.0-30.0) sec Sodium 130 L (137-145) mmol/L Potassium 4.1 (3.5-5.1) mmol/L Chloride 99 (98-107) mmol/L Carbon Dioxide 23 (22-30) mmol/L Anion Gap 8 mmol/L BUN 17 (9-20) mg/dL Creatinine 0.91 (0.66-1.25) mg/dL Est GFR (CKD-EPI)AfAm >90 (>60 ml/min/1.73 sqM) Est GFR (CKD-EPI)NonAf 88 (>60 ml/min/1.73 sqM) Glucose 101 H (74-99) mg/dL Plasma Lactic Acid Rene (0.7-2.0) mmol/L Calcium 8.7 (8.4-10.2) mg/dL Magnesium 2.0 (1.6-2.3) mg/dL Total Bilirubin 0.9 (0.2-1.3) mg/dL AST 20 (17-59) U/L ALT 17 (4-49) U/L Alkaline Phosphatase 85 (38-126) U/L Troponin I (0.000-0.034) ng/mL Total Protein 5.9 L (6.3-8.2) g/dL Albumin 3.7 (3.5-5.0) g/dL Coronavirus (PCR) (Not Detectd) 05/04/21 05/04/21 05/04/21 Range/Units 20:50 20:50 20:55 WBC (3.8-10.6) k/uL RBC (4.30-5.90) m/uL Hgb (13.0-17.5) gm/dL Hct (39.0-53.0) % MCV (80.0-100.0) fL MCH (25.0-35.0) pg MCHC (31.0-37.0) g/dL RDW (11.5-15.5) % Plt Count (150-450) k/uL MPV Neutrophils % % Lymphocytes % % Monocytes % % Eosinophils % % Basophils % % Neutrophils # (1.3-7.7) k/uL Lymphocytes # (1.0-4.8) k/uL Monocytes # (0-1.0) k/uL Eosinophils # (0-0.7) k/uL Basophils # (0-0.2) k/uL PT (9.0-12.0) sec INR (<1.2) APTT (22.0-30.0) sec Sodium (137-145) mmol/L Potassium (3.5-5.1) mmol/L Chloride (98-107) mmol/L Carbon Dioxide (22-30) mmol/L Anion Gap mmol/L BUN (9-20) mg/dL Creatinine (0.66-1.25) mg/dL Est GFR (CKD-EPI)AfAm (>60 ml/min/1.73 sqM) Est GFR (CKD-EPI)NonAf (>60 ml/min/1.73 sqM) Glucose (74-99) mg/dL Plasma Lactic Acid Rene 1.1 (0.7-2.0) mmol/L Calcium (8.4-10.2) mg/dL Magnesium (1.6-2.3) mg/dL Total Bilirubin (0.2-1.3) mg/dL AST (17-59) U/L ALT (4-49) U/L Alkaline Phosphatase (38-126) U/L Troponin I 1.070 H* (0.000-0.034) ng/mL Total Protein (6.3-8.2) g/dL Albumin (3.5-5.0) g/dL Coronavirus (PCR) Not Detected (Not Detectd) - EKG Data -: EKG Interpreted by Me EKG Comments: 12-lead Electrocardiogram Interpretation Note EKG was reviewed and interpreted by myself. 12-lead ECG performed at 2036 is interpreted by me as revealing normal sinus rhythm at a rate of 92 beats per minute. [place] is normal. NH interval is 132 ms, QRS duration is 94 ms, QTc is 455 ms.. There were no ST or T wave abnormalities to suggest myocardial ischemia or injury. R wave progression across the precordium was satisfactory. By my interpretation this EKG is non-diagnostic for acute ischemia. No difference in comparison to prior EKG. Disposition Clinical Impression: Hyponatremia, Febrile illness, History of recurrent UTI (urinary tract infection), Elevated troponin, Dehydration Disposition: ADMITTED IP TO THIS HOSP Condition: Serious Referrals: None,Stated [Primary Care Provider] - 1-2 days
[2021-05-04] MEDS: SODIUM CHLORIDE 0.9% 1,000 ML IV SCH (22:52)
[2021-05-04] MEDS: HEPARIN SODIUM,PORCINE/PF 5,000 UNIT/0.5 ML SYRINGE SQ SCH ×2 (22:52→22:56)
[2021-05-05 07:21] LABS: Appearance,Urine Clear (Clear); Bacteria,Urine Occasional /hpf; Bilirubin,Urine Negative (Negative); Blood,Urine Trace (Negative); Color,Urine Yellow; Glucose,Urine (UA) Negative (Negative); Hyaline Casts,Urine 1 /lpf (0-2); Ketones,Urine Negative (Negative); Leukocyte Esterase,Urine Small (Negative); Mucus,Urine Rare /hpf; Nitrite,Urine Negative (Negative); PH, Urine 6.5 (5.0-8.0); Protein,Urine Trace (Negative); RBC,Urine 18 /hpf (0-5); Specific Gravity,Urine 1.017 (1.001-1.035); WBC,Urine 11 /hpf (0-5)
--- NOTE | 2021-05-05 10:04 | P.HPIM ---
History of Present Illness This is a pleasant 65 years old male with past medical history of hypertension, renal cancer, schizophrenia, hyperlipidemia, benign prostatic hypertrophy, chronic back pain, depression He was recently discharged from the hospital 4 days ago for non-STEMI status post PCI to RCA on 04/30 Presents because of weakness and lethargy as patient could not get up from bed. Also was complaining from increased frequency of urination make a little amount of urine with no dysuria or suprapubic tenderness 10 or dyspnea. No diarrhea or vomiting. No abdominal pain. On admission patient had a fever of 101.3. Blood pressure was borderline 94/88, currently 110/68. His leukocytosis 17.3, of CBC, INR, BMP and liver enzymes are unremarkable. Sodium is slightly low at 1:30 Urine analysis is suspicious for infection Chest x-ray: No acute process. EKG showing normal sinus rhythm at [address]-T changes. And emergency room he was started on IV fluids and ceftriaxone Review of Systems CONSTITUTIONAL: No fever, no malaise, no fatigue. HEENT: No recent visual problems or hearing problems. Denied any sore throat. CARDIOVASCULAR: No orthopnea, PND, no palpitations, no syncope. PULMONARY: No shortness of breath, no cough, no hemoptysis. GASTROINTESTINAL: No diarrhea, no nausea, no vomiting, no abdominal pain. Normoactive bowel sounds. NEUROLOGICAL: No headaches, no weakness, no numbness. HEMATOLOGICAL: Denies any bleeding or petechiae. GENITOURINARY: Denies any burning micturition, frequency, or urgency. MUSCULOSKELETAL/RHEUMATOLOGICAL: Denies any joint pain, swelling, or any muscle pain. ENDOCRINE: Denies any polyuria or polydipsia. Past Medical History Past Medical History: Hypertension Additional Past Medical History / Comment(s): renal CA with surgery History of Any Multi-Drug Resistant Organisms: Unobtainable Past Surgical History: Orthopedic Surgery Additional Past Surgical History / Comment(s): cryoablation for renal CA, Heart Catheterization 04/23/2021, Past Psychological History: Schizophrenia Smoking Status: Never smoker Past Alcohol Use History: None Reported Past Drug Use History: None Reported Medications and Allergies Home Medications Medication Instructions Recorded Confirmed Type Acetaminophen Tab [Tylenol] 1,000 mg PO TID PRN 12/09/20 05/04/21 History Omeprazole 40 mg PO AC-BID 12/09/20 05/04/21 History Sennosides/Docusate Sodium [Senna 2 tab PO DAILY PRN 12/09/20 05/04/21 History Plus 8.6-50 mg Tablet] Melatonin 5 mg PO HS PRN 30 Days tab 12/13/20 05/04/21 Rx amLODIPine [Norvasc] 2.5 mg PO DAILY 30 Days tab 12/13/20 05/04/21 Rx cloZAPine [Clozaril] 200 mg PO DAILY@1600 30 Days tab 12/13/20 05/04/21 Rx cloZAPine [Clozaril] 400 mg PO HS@2100 30 Days tab 12/13/20 05/04/21 Rx clonazePAM [KlonoPIN] 1 mg PO BID 30 Days tab 12/13/20 05/04/21 Rx Cyclobenzaprine [Flexeril] 5 mg PO HS PRN 04/27/21 05/04/21 History Methyl Salicylate/Menthol 1 applic TOPICAL QID PRN 04/27/21 05/04/21 History [Thera-Gesic Creme] Sertraline [Zoloft] 50 mg PO DAILY 04/27/21 05/04/21 History Tamsulosin HCl [Flomax] 0.4 mg PO DAILY 04/27/21 05/04/21 History Aspirin 81 mg PO DAILY 30 Days #30 tab 04/30/21 05/04/21 Rx Atorvastatin [Lipitor] 80 mg PO HS 30 Days #30 tab 04/30/21 05/04/21 Rx Losartan [Cozaar] 50 mg PO HS 30 Days #30 tab 04/30/21 05/04/21 Rx Clopidogrel [Plavix] 75 mg PO DAILY 30 Days #30 tab 05/01/21 05/04/21 Rx cloZAPine [Clozaril] 100 mg PO DAILY@0900 05/04/21 05/04/21 History Allergies Allergy/AdvReac Type Severity Reaction Status Date / Time No Known Allergies Allergy Verified 05/04/21 21:51 Physical Exam Vitals: Vital Signs Temp Pulse Resp BP Pulse Ox 05/05/21 06:00 79 18 110/68 95 05/05/21 03:00 81 18 96/70 95 05/05/21 00:00 81 16 94/88 94 L 05/04/21 22:30 99.1 F 81 16 90/59 92 L 05/04/21 21:01 92 18 128/74 96 05/04/21 20:18 101.3 F H 92 18 130/75 95 Intake and Output 05/04/21 05/05/21 05/05/21 22:59 06:59 14:59 Other: Weight 88.904 kg -GENERAL: The patient is alert and oriented x3, not in any acute distress. Well generally weak HEENT: Pupils are round and equally reacting to light. EOMI. No scleral icterus. No conjunctival pallor. Normocephalic, atraumatic. No pharyngeal erythema. No thyromegaly. CARDIOVASCULAR: S1 and S2 present. No murmurs, rubs, or gallops. PULMONARY: Chest is clear to auscultation, no wheezing or crackles. ABDOMEN: Soft, nontender, nondistended, normoactive bowel sounds. No palpable organomegaly. MUSCULOSKELETAL: No joint swelling or deformity. EXTREMITIES: No cyanosis, clubbing, or pedal edema. NEUROLOGICAL: Gross neurological examination did not reveal any focal deficits. SKIN: No rashes. No petechiae Results CBC & Chem 7: 05/04/21 20:50 05/04/21 20:50 Labs: Abnormal Lab Results - Last 24 Hours (Table) 05/04/21 05/04/21 05/04/21 Range/Units 20:50 20:50 20:50 WBC 17.3 H (3.8-10.6) k/uL Neutrophils # 15.1 H (1.3-7.7) k/uL Lymphocytes # 0.8 L (1.0-4.8) k/uL Monocytes # 1.1 H (0-1.0) k/uL Sodium 130 L (137-145) mmol/L Glucose 101 H (74-99) mg/dL Troponin I 1.070 H* (0.000-0.034) ng/mL Total Protein 5.9 L (6.3-8.2) g/dL Urine Protein (Negative) Urine Blood (Negative) Ur Leukocyte Esterase (Negative) Urine RBC (0-5) /hpf Urine WBC (0-5) /hpf Urine Bacteria (None) /hpf Urine Mucus (None) /hpf 05/04/21 05/05/21 Range/Units 20:55 00:30 WBC (3.8-10.6) k/uL Neutrophils # (1.3-7.7) k/uL Lymphocytes # (1.0-4.8) k/uL Monocytes # (0-1.0) k/uL Sodium (137-145) mmol/L Glucose (74-99) mg/dL Troponin I 1.170 H* (0.000-0.034) ng/mL Total Protein (6.3-8.2) g/dL Urine Protein Trace H (Negative) Urine Blood Trace H (Negative) Ur Leukocyte Esterase Small H (Negative) Urine RBC 18 H (0-5) /hpf Urine WBC 11 H (0-5) /hpf Urine Bacteria Occasional H (None) /hpf Urine Mucus Rare H (None) /hpf Assessment and Plan Assessment: Sepsis with leukocytosis and fever Hypovolemic hyponatremia Possible urinary tract infection Plan: This is a pleasant 65 years old male who presents with UTI and sepsis. Continue with ceftriaxone and decrease dose to 2 g daily. Follow-up urine culture. Cardiology consult Check renal ultrasound Continue with normal saline hydration. Currently at 200 mL/h Labs and medication were reviewed.. Continue same treatment. Continue with symptomatic treatment. Resume home medication. Monitor lytes and vitals. DVT and GI prophylaxis. Further recommendations depends on the clinical course of the patient DVT prophylaxis: Subcutaneous heparin GI Prophylaxis: Ppi PT/OT: Pending Prognosis is guarded
--- NOTE | 2021-05-05 12:44 | US ---
EXAMINATION TYPE: US renals and bladder DATE OF EXAM: 05/05/2021 COMPARISON: NONE CLINICAL HISTORY: uti. Fever, fatigue, elevated troponin EXAM MEASUREMENTS: Right Kidney: 10.9 x 5.9 x 4.6 cm Left Kidney: 12.0 x 8.2 x 7.4 cm Post Void Residual Volume: no assessed on patient in EC Right Kidney: No hydronephrosis or masses seen Left Kidney: prominent renal pelvis is noted Bladder: irregular wall appearance Bilateral Jets seen: yes There is no evidence for hydronephrosis at this point in time. No nephrolithiasis is seen. No dana s are identified. Cortical medullary differentiation is maintained. IMPRESSION: Irregular trabeculated appearance of the bladder wall could be due to chronic bladder outlet obstruct ion, correlate for possible cystitis.
--- NOTE | 2021-05-05 14:18 | P.CRDCN ---
History of Present Illness Consult date: 05/05/21 History of present illness: The patient is a 65-year-old male who presented to the emergency room with worsening fatigue and fever. The patient was recently admitted to the hospital last week where he underwent PCI of the RCA. He was discharged on May 01. During that admission he was noted to be positive for urinary tract infection and was discharged on antibiotics. The patient was interviewed and examined lying comfortably in the emergency room. He does report some weakness and fatigue. Positive for chills. No chest pain or chest pressure. No dyspnea or orthopnea. DIAGNOSTICS: EKG shows sinus mechanism with incomplete right bundle-branch block Chest x-ray shows no acute cardiopulmonary process Recent echocardiogram shows normal LV function without valvular abnormalities Laboratory data: WBC 17.3, hemoglobin 13.5, hematocrit 39.9, platelet 285, so dium 1:30, potassium 4.1, BUN 17, creatinine 0.97, lactic acid 1.1, AST 20, ALT 17, troponin 1.0, 1.1 Vital signs: Blood pressure 110/68, temp 99.1F, pulse 79, respiratory rate 18, SpO2 95% on room air PAST MEDICAL HISTORY: Coronary artery disease, hypertension, schizophrenia, renal cell cancer REVIEW OF SYSTEMS: No cough or expectoration. No diaphoresis. Patient denies headache, dizziness, blurred vision, double vision. Patient denies any stomach discomfort. No nausea, vomiting. No hematochezia. No hematemesis. Denies any black stools or blood in his stools. Denies dysuria or hematuria. No chest pain or chest pressure. No dyspnea or orthopnea. No edema. PHYSICAL EXAMINATION: This is a 65-year-old male in no apparent distress at the time of my examination. HEENT: Head is atraumatic, normocephalic. Pupils are equal, round. Sclerae anicteric. Conjunctivae are clear. Mucous membranes of the mouth are moist. Neck is supple. There is no jugular venous distention. No carotid bruit is heard. CHEST EXAMINATION: Lungs are clear to auscultation. No chest wall tenderness is noted on palpation or with deep breathing. HEART EXAMINATION: Heart regular rate and rhythm. S1, S2 heard. No murmurs, gallops or rub. ABDOMEN: Soft, nontender. Bowel sounds are heard. No organomegaly noted. EXTREMITIES: 2+ peripheral pulses with no evidence of peripheral edema and no calf tenderness noted. NEUROLOGIC EXAMINATION: Patient is awake, alert and oriented x3. FINAL ASSESSMENT AND PLAN: Elevated troponins, secondary to recent stenting Coronary artery disease, recent stenting of mid RCA, on appropriate medical treatment Sepsis, management per primary team Leukocytosis PLAN: Resume home medication regimen Continue dual antiplatelet therapy Further recommendations based upon clinical course The patient has been seen and evaluated. Plan of care has been reviewed and agreed upon by Dr Perdomo. Past Medical History Past Medical History: Hypertension Additional Past Medical History / Comment(s): renal CA with surgery History of Any Multi-Drug Resistant Organisms: Unobtainable Past Surgical History: Orthopedic Surgery Additional Past Surgical History / Comment(s): cryoablation for renal CA, Heart Catheterization 04/23/2021, Past Psychological History: Schizophrenia Smoking Status: Never smoker Past Alcohol Use History: None Reported Past Drug Use History: None Reported Medications and Allergies Home Medications Medication Instructions Recorded Confirmed Type Acetaminophen Tab [Tylenol] 1,000 mg PO TID PRN 12/09/20 05/04/21 History Omeprazole 40 mg PO AC-BID 12/09/20 05/04/21 History Sennosides/Docusate Sodium [Senna 2 tab PO DAILY PRN 12/09/20 05/04/21 History Plus 8.6-50 mg Tablet] Melatonin 5 mg PO HS PRN 30 Days tab 12/13/20 05/04/21 Rx amLODIPine [Norvasc] 2.5 mg PO DAILY 30 Days tab 12/13/20 05/04/21 Rx cloZAPine [Clozaril] 200 mg PO DAILY@1600 30 Days tab 12/13/20 05/04/21 Rx cloZAPine [Clozaril] 400 mg PO HS@2100 30 Days tab 12/13/20 05/04/21 Rx clonazePAM [KlonoPIN] 1 mg PO BID 30 Days tab 12/13/20 05/04/21 Rx Cyclobenzaprine [Flexeril] 5 mg PO HS PRN 04/27/21 05/04/21 History Methyl Salicylate/Menthol 1 applic TOPICAL QID PRN 04/27/21 05/04/21 History [Thera-Gesic Creme] Sertraline [Zoloft] 50 mg PO DAILY 04/27/21 05/04/21 History Tamsulosin HCl [Flomax] 0.4 mg PO DAILY 04/27/21 05/04/21 History Aspirin 81 mg PO DAILY 30 Days #30 tab 04/30/21 05/04/21 Rx Atorvastatin [Lipitor] 80 mg PO HS 30 Days #30 tab 04/30/21 05/04/21 Rx Losartan [Cozaar] 50 mg PO HS 30 Days #30 tab 04/30/21 05/04/21 Rx Clopidogrel [Plavix] 75 mg PO DAILY 30 Days #30 tab 05/01/21 05/04/21 Rx cloZAPine [Clozaril] 100 mg PO DAILY@0900 05/04/21 05/04/21 History Allergies Allergy/AdvReac Type Severity Reaction Status Date / Time No Known Allergies Allergy Verified 05/04/21 21:51 Physical Exam Vitals: Vital Signs Temp Pulse Resp BP Pulse Ox 05/05/21 06:00 79 18 110/68 95 05/05/21 03:00 81 18 96/70 95 05/05/21 00:00 81 16 94/88 94 L 05/04/21 22:30 99.1 F 81 16 90/59 92 L 05/04/21 21:01 92 18 128/74 96 05/04/21 20:18 101.3 F H 92 18 130/75 95 Intake and Output 05/04/21 05/05/21 05/05/21 22:59 06:59 14:59 Other: Weight 88.904 kg Results 05/04/21 20:50 05/04/21 20:50 Cardiac Enzymes 05/04/21 05/04/21 05/05/21 Range/Units 20:50 20:50 00:30 AST 20 (17-59) U/L Troponin I 1.070 H* 1.170 H* (0.000-0.034) ng/mL Coagulation 05/04/21 Range/Units 20:50 PT 10.7 (9.0-12.0) sec APTT 24.1 (22.0-30.0) sec CBC 05/04/21 Range/Units 20:50 WBC 17.3 H (3.8-10.6) k/uL RBC 4.79 (4.30-5.90) m/uL Hgb 13.5 (13.0-17.5) gm/dL Hct 39.9 (39.0-53.0) % Plt Count 285 (150-450) k/uL Comprehensive Metabolic Panel 05/04/21 Range/Units 20:50 Sodium 130 L (137-145) mmol/L Potassium 4.1 (3.5-5.1) mmol/L Chloride 99 (98-107) mmol/L Carbon Dioxide 23 (22-30) mmol/L BUN 17 (9-20) mg/dL Creatinine 0.91 (0.66-1.25) mg/dL Glucose 101 H (74-99) mg/dL Calcium 8.7 (8.4-10.2) mg/dL AST 20 (17-59) U/L ALT 17 (4-49) U/L Alkaline Phosphatase 85 (38-126) U/L Total Protein 5.9 L (6.3-8.2) g/dL Albumin 3.7 (3.5-5.0) g/dL Current Medications Generic Name Dose Route Start Last Admin Trade Name Freq PRN Reason Stop Dose Admin Acetaminophen 650 mg 05/04/21 22:21 Acetaminophen Tab 325 Mg Tab PO Q6HR PRN Mild Pain or Fever > 100.5 Acetaminophen 1,000 mg 05/04/21 22:24 Acetaminophen Tab 500 Mg Tab PO TID PRN Fever and/ or Pain Amlodipine Besylate 2.5 mg 05/05/21 09:00 Amlodipine 2.5 Mg Tab PO DAILY [facility] Aspirin 81 mg 05/05/21 09:00 Aspirin 81 Mg PO DAILY [facility] Atorvastatin Calcium 80 mg 05/05/21 21:00 Atorvastatin 80 Mg Tab PO HS [facility] Clonazepam 1 mg 05/05/21 09:00 Clonazepam 1 Mg Tab PO BID [facility] Clopidogrel Bisulfate 75 mg 05/05/21 09:00 Clopidogrel 75 Mg Tab PO DAILY [facility] Clozapine 100 mg 05/05/21 09:00 Clozapine 100 Mg Tab PO 05/08/21 23:59 DAILY@0900 [facility] Clozapine 200 mg 05/05/21 16:00 Clozapine 100 Mg Tab PO 05/08/21 23:59 DAILY@1600 [facility] Clozapine 400 mg 05/05/21 21:00 Clozapine 100 Mg Tab PO 05/08/21 23:59 HS@2100 [facility] Cyclobenzaprine HCl 5 mg 05/04/21 22:24 Cyclobenzaprine 5 Mg Tab PO HS PRN Muscle Spasm Heparin Sodium (Porcine) 5,000 unit 05/05/21 09:00 Heparin Sodium,Porcine/Pf 5,000 Unit/0.5 Ml Syringe SQ Q12HR [facility]AN Sodium Chloride 1,000 mls @ 100 mls/hr 05/04/21 22:30 05/04/21 22:52 Saline 0.9% IV 100 mls/hr .Q10H JEAN Administration Ceftriaxone Sodium 2 gm/ 50 mls @ 100 mls/hr 05/06/21 09:00 Sodium Chloride IVPB Q24HR [facility]AN Ibuprofen 400 mg 05/04/21 22:21 Ibuprofen 400 Mg Tab PO Q6HR PRN Mild Pain or Fever > 100.5 Losartan Potassium 50 mg 05/05/21 21:00 Losartan 50 Mg Tab PO HS [facility]AN Melatonin 5 mg 05/04/21 22:24 Melatonin 5 Mg Tablet PO HS PRN Insomnia Naloxone HCl 0.2 mg 05/04/21 22:21 Naloxone 0.4 Mg/Ml 1 Ml Vial IV Q2M PRN Opioid Reversal Pantoprazole Sodium 40 mg 05/05/21 07:30 Pantoprazole 40 Mg Tablet PO AC-BID JEAN Senna/Docusate Sodium 2 each 05/04/21 22:24 Sennosides-Docusate Sodium 1 Each Tab PO DAILY PRN Constipation Sertraline HCl 50 mg 05/05/21 09:00 Sertraline 50 Mg Tab PO DAILY [facility] Tamsulosin HCl 0.4 mg 05/05/21 09:00 Tamsulosin 0.4 Mg Cap.Er.24h PO DAILY [facility] Intake and Output 05/04/21 05/05/21 05/05/21 22:59 06:59 14:59 Other: Weight 88.904 kg 05/04/21 20:50 05/04/21 20:50
[2021-05-05] MEDS: PANTOPRAZOLE 40 MG TABLET PO SCH ×2 (14:20→20:34)
[2021-05-05] MEDS: clonazePAM 1 MG TAB PO SCH ×2 (14:21→20:34)
[2021-05-05] MEDS: ASPIRIN 81 MG PO SCH (14:21)
[2021-05-05] MEDS: CLOPIDOGREL 75 MG TAB PO SCH (14:21)
[2021-05-05] MEDS: HEPARIN SODIUM,PORCINE/PF 5,000 UNIT/0.5 ML SYRINGE SQ SCH ×2 (14:21→20:33)
[2021-05-05] MEDS: TAMSULOSIN 0.4 MG CAP.ER.24H PO SCH (14:21)
[2021-05-05] MEDS: SERTRALINE 50 MG TAB PO SCH (14:30)
[2021-05-05] MEDS: cloZAPine 100 MG TAB PO SCH ×3 (14:30→20:37)
[2021-05-05] MEDS: amLODIPine 2.5 MG TAB PO SCH (17:19)
[2021-05-05] MEDS: SODIUM CHLORIDE 0.9% 1,000 ML IV SCH ×2 (17:21→20:34)
[2021-05-05] MEDS: ATORVASTATIN 80 MG TAB PO SCH (20:34)
[2021-05-05] MEDS: LOSARTAN 50 MG TAB PO SCH (20:34)
[2021-05-06] MEDS: PANTOPRAZOLE 40 MG TABLET PO SCH ×2 (06:03→16:21)
[2021-05-06] MEDS: SODIUM CHLORIDE 0.9% 1,000 ML IV SCH ×3 (06:03→21:09)
[2021-05-06 06:27] LABS: African American GFR (CKD) >90 (>60 ml/min/1.73 sqM); Anion Gap 6 mmol/L; Blood Urea Nitrogen 12 mg/dL (9-20); Calcium 8.2 mg/dL (8.4-10.2); Carbon Dioxide 23 mmol/L (22-30); Chloride 103 mmol/L (98-107); Glucose 109 mg/dL (74-99); Non-African American GFR(CKD) >90 (>60 ml/min/1.73 sqM); Potassium 3.7 mmol/L (3.5-5.1); Sodium 132 mmol/L (137-145)
[2021-05-06] MEDS: HEPARIN SODIUM,PORCINE/PF 5,000 UNIT/0.5 ML SYRINGE SQ SCH ×2 (08:11→21:08)
[2021-05-06] MEDS: SERTRALINE 50 MG TAB PO SCH (08:12)
[2021-05-06] MEDS: cloZAPine 100 MG TAB PO SCH ×3 (08:12→21:08)
[2021-05-06] MEDS: TAMSULOSIN 0.4 MG CAP.ER.24H PO SCH (08:12)
[2021-05-06] MEDS: ASPIRIN 81 MG PO SCH (08:12)
[2021-05-06] MEDS: CLOPIDOGREL 75 MG TAB PO SCH (08:12)
[2021-05-06] MEDS: clonazePAM 1 MG TAB PO SCH ×2 (08:13→21:08)
[2021-05-06] MEDS: IBUPROFEN 400 MG TAB PO PRN (08:15)
[2021-05-06] MEDS: amLODIPine 2.5 MG TAB PO SCH ×2 (08:15→15:07)
[2021-05-06 10:51] LABS: Basophils % (A) 0 %; Eosinophils # (A) 0.2 k/uL (0-0.7); Eosinophils % (A) 1 %; HCT 36.2 % (39.0-53.0); HGB 11.6 gm/dL (13.0-17.5); Lymphocytes # (A) 1.2 k/uL (1.0-4.8); Lymphocytes % (A) 8 %; MCH 27.9 pg (25.0-35.0); MCHC 31.9 g/dL (31.0-37.0); MCV 87.3 fL (80.0-100.0); Mean Platelet Volume 8.4; Monocytes # (A) 0.9 k/uL (0-1.0); Monocytes % (A) 6 %; Neutrophils # (A) 11.7 k/uL (1.3-7.7); Neutrophils % (A) 83 %; Platelet Count 266 k/uL (150-450); RBC 4.14 m/uL (4.30-5.90); RDW 14.1 % (11.5-15.5)
--- NOTE | 2021-05-06 13:40 | P.PN ---
Subjective Progress Note Date: 05/06/21 HISTORY OF PRESENT ILLNESS: The patient is a 65-year-old male who presented to the emergency room with worsening fatigue and fever. The patient was recently admitted to the hospital last week where he underwent PCI of the RCA. He was discharged on May 01. During that admission he was noted to be positive for urinary tract infection and was discharged on antibiotics. The patient was interviewed and examined lying comfortably in the emergency room. He does report some weakness and fatigue. Positive for chills. No chest pain or chest pressure. No dyspnea or orthopnea. DIAGNOSTICS: EKG shows sinus mechanism with incomplete right bundle-branch block Chest x-ray shows no acute cardiopulmonary process Recent echocardiogram shows normal LV function without valvular abnormalities Laboratory data: WBC 17.3, hemoglobin 13.5, hematocrit 39.9, platelet 285, sodium 1:30, potassium 4.1, BUN 17, creatinine 0.97, lactic acid 1.1, AST 20, ALT 17, troponin 1.0, 1.1 Vital signs: Blood pressure 110/68, temp 99.1F, pulse 79, respiratory rate 18, SpO2 95% on room air 05/06/2021 Patient examined this morning at the bedside. Patient denies chest pain or pressure. He denies shortness of breath. Patient states he is tired and did not sleep well overnight. Traction fraction 55-60% PHYSICAL EXAM: VITAL SIGNS: Reviewed. GENERAL: Well-developed in no acute distress. NECK: Supple. No JVD or thyromegaly LUNGS: Respirations even and unlabored. Lungs essentially clear to auscultation bilaterally. HEART: Regular rate and rhythm. S1 and S2 heard. EXTREMITIES: Normal range of motion. No clubbing or cyanosis. Peripheral pulses intact. No lower extremity edema ASSESSMENT: Sepsis with leukocytosis and fever Possible urinary tract infection Coronary artery disease with recent PCI to the RCA, 04/30/2021 Abnormal troponin, secondary to recent PCI PLAN: Continue current cardiac medications Patient is stable from a cardiac standpoint Patient to follow up with Dr. Vazquez We will sign off. Please reconsult if needed. Nurse practitioner note has been reviewed by physician. Signing provider agrees with the documented findings, assessment, and plan of care. Objective - Vital Signs Vital signs: Vital Signs Temp 97.3 F L 05/06/21 11:25 Pulse 75 05/06/21 11:25 Resp 16 05/06/21 11:25 BP 118/69 05/06/21 11:25 Pulse Ox 97 05/06/21 11:25 Intake & Output 05/05/21 05/06/21 05/06/21 18:59 06:59 18:59 Intake Total 240 Output Total 500 1275 Balance -500 -1035 Weight 88.904 kg 89.8 kg Intake: Oral 240 Output: Urine 500 1275 Straight 600 Other: # Voids 3 # Bowel Movements 1 1 - Labs CBC & Chem 7: 05/06/21 05:44 05/06/21 05:44 Labs: Abnormal Lab Results - Last 24 Hours (Table) 05/06/21 05/06/21 Range/Units 05:44 05:44 WBC 14.0 H (3.8-10.6) k/uL RBC 4.14 L (4.30-5.90) m/uL Hgb 11.6 L (13.0-17.5) gm/dL Hct 36.2 L (39.0-53.0) % Neutrophils # 11.7 H (1.3-7.7) k/uL Sodium 132 L (137-145) mmol/L Glucose 109 H (74-99) mg/dL Calcium 8.2 L (8.4-10.2) mg/dL Microbiology - Last 24 Hours (Table) 05/04/21 20:55 Urine Culture - Final Urine,Voided 05/04/21 20:40 Blood Culture - Preliminary Blood No Growth after 24 hours 05/04/21 20:50 Blood Culture - Preliminary Blood No Growth after 24 hours
[2021-05-06] MEDS: LOSARTAN 50 MG TAB PO SCH (21:08)
[2021-05-06] MEDS: ATORVASTATIN 80 MG TAB PO SCH (21:08)
[2021-05-07] MEDS: PANTOPRAZOLE 40 MG TABLET PO SCH ×2 (06:29→16:16)
[2021-05-07 09:13] LABS: African American GFR (CKD) >90 (>60 ml/min/1.73 sqM); Anion Gap 7 mmol/L; Blood Urea Nitrogen 7 mg/dL (9-20); Calcium 8.4 mg/dL (8.4-10.2); Carbon Dioxide 26 mmol/L (22-30); Chloride 104 mmol/L (98-107); Glucose 105 mg/dL (74-99); Non-African American GFR(CKD) >90 (>60 ml/min/1.73 sqM); Potassium 3.8 mmol/L (3.5-5.1); Sodium 137 mmol/L (137-145)
[2021-05-07] MEDS: ASPIRIN 81 MG PO SCH (09:42)
[2021-05-07] MEDS: amLODIPine 2.5 MG TAB PO SCH (09:42)
[2021-05-07] MEDS: CLOPIDOGREL 75 MG TAB PO SCH (09:42)
[2021-05-07] MEDS: TAMSULOSIN 0.4 MG CAP.ER.24H PO SCH (09:43)
[2021-05-07] MEDS: clonazePAM 1 MG TAB PO SCH ×2 (09:43→20:01)
[2021-05-07] MEDS: SERTRALINE 50 MG TAB PO SCH (09:43)
[2021-05-07] MEDS: HEPARIN SODIUM,PORCINE/PF 5,000 UNIT/0.5 ML SYRINGE SQ SCH ×2 (09:44→20:01)
[2021-05-07] MEDS: cloZAPine 100 MG TAB PO SCH ×3 (09:44→20:01)
[2021-05-07] MEDS: IBUPROFEN 400 MG TAB PO PRN (13:00)
[2021-05-07] MEDS: LOSARTAN 50 MG TAB PO SCH (20:01)
[2021-05-07] MEDS: ATORVASTATIN 80 MG TAB PO SCH (20:01)
[2021-05-08] MEDS: PANTOPRAZOLE 40 MG TABLET PO SCH (06:11)
[2021-05-08 07:05] LABS: Basophils % (A) 1 %; Eosinophils # (A) 0.3 k/uL (0-0.7); Eosinophils % (A) 4 %; HGB 12.5 gm/dL (13.0-17.5); Lymphocytes % (A) 14 %; MCH 27.5 pg (25.0-35.0); MCHC 31.9 g/dL (31.0-37.0); MCV 86.1 fL (80.0-100.0); Mean Platelet Volume 7.9; Monocytes # (A) 0.5 k/uL (0-1.0); Monocytes % (A) 7 %; Neutrophils # (A) 5.1 k/uL (1.3-7.7); Neutrophils % (A) 74 %; Platelet Count 302 k/uL (150-450); RBC 4.53 m/uL (4.30-5.90); WBC 6.9 k/uL (3.8-10.6)
[2021-05-08] MEDS: SERTRALINE 50 MG TAB PO SCH (09:15)
[2021-05-08] MEDS: HEPARIN SODIUM,PORCINE/PF 5,000 UNIT/0.5 ML SYRINGE SQ SCH (09:15)
[2021-05-08] MEDS: TAMSULOSIN 0.4 MG CAP.ER.24H PO SCH (09:15)
[2021-05-08] MEDS: CLOPIDOGREL 75 MG TAB PO SCH (09:15)
[2021-05-08] MEDS: clonazePAM 1 MG TAB PO SCH (09:15)
[2021-05-08] MEDS: ASPIRIN 81 MG PO SCH (09:15)
[2021-05-08] MEDS: amLODIPine 2.5 MG TAB PO SCH (09:15)
[2021-05-08] MEDS: cloZAPine 100 MG TAB PO SCH ×2 (09:15→16:50)
[2021-05-08 11:19] VITALS: BP 121/74; PULSE 75; RESP 20; TEMP 97.3
--- NOTE | 2021-05-08 14:08 | P.PN ---
Subjective Progress Note Date: 05/06/21 Principal diagnosis: UTI Possible pneumonia This is a pleasant 65 years old male with past medical history of hypertension, renal cancer, schizophrenia, hyperlipidemia, benign prostatic hypertrophy, chronic back pain, depression He was recently discharged from the hospital 4 days ago for non-STEMI status post PCI to RCA on 04/30 Presents because of weakness and lethargy as patient could not get up from bed. Also was complaining from increased frequency of urination make a little amount of urine with no dysuria or suprapubic tenderness 10 or dyspnea. No diarrhea or vomiting. No abdominal pain. On admission patient had a fever of 101.3. Blood pressure was borderline 94/88, currently 110/68. His leukocytosis 17.3, of CBC, INR, BMP and liver enzymes are unremarkable. Sodium is slightly low at 1:30 Urine analysis is suspicious for infection Chest x-ray: No acute process. EKG showing normal sinus rhythm at [address]-T changes. And emergency room he was started on IV fluids and ceftriaxone 05/06/2021 Patient is currently lying in the bed awake alert but lethargic and drowsy. No complaints of chest pain. No compressive abdominal pain. Not eating well. Patient has been afebrile. Continue the antibiotics in the form of ceftriaxone. Urine culture is negative. Laboratory data showed WBC count 20 down to 14.0 hemoglobin 11.6 and platelets 266 Sodium 132 potassium 3.7 BUN 12 and creatinine 0.79, renal ultrasound is nonobstructive. Patient was seen by cardiology due to elevated troponin level. 2-D echocardiogram showed ejection fraction 55-60%. Current medications reviewed. Objective - Vital Signs Vital signs: Vital Signs Temp 97.3 F L 05/06/21 11:25 Pulse 73 05/06/21 16:00 Resp 16 05/06/21 11:25 BP 117/68 05/06/21 16:00 Pulse Ox 98 05/06/21 16:00 Intake & Output 05/05/21 05/06/21 05/06/21 18:59 06:59 18:59 Intake Total 1840 Output Total 500 1825 Balance -500 15 Weight 88.904 kg 89.8 kg Intake: IV 850 Sodium Chloride 0.9% 1, 800 000 ml @ 100 mls/hr IV . Q10H PENDING SALE TO [facility] Rx#:[id number] cefTRIAXone 2 gm In 50 Sodium Chloride 0.9% 50 ml @ 100 mls/hr IVPB Q24HR PENDING SALE TO [facility] Rx#:[id number] Oral 990 Output: Urine 500 1825 Straight 600 Other: # Voids 3 # Bowel Movements 1 1 - Exam -GENERAL: The patient is alert and oriented x3, not in any acute distress. Well generally weak HEENT: Pupils are round and equally reacting to light. EOMI. No scleral icterus. No conjunctival pallor. Normocephalic, atraumatic. No pharyngeal erythema. No thyromegaly. CARDIOVASCULAR: S1 and S2 present. No murmurs, rubs, or gallops. PULMONARY: Chest is clear to auscultation, no wheezing or crackles. ABDOMEN: Soft, nontender, nondistended, normoactive bowel sounds. No palpable organomegaly. MUSCULOSKELETAL: No joint swelling or deformity. EXTREMITIES: No cyanosis, clubbing, or pedal edema. NEUROLOGICAL: Gross neurological examination did not reveal any focal deficits. SKIN: No rashes. No petechiae - Labs CBC & Chem 7: 05/08/21 06:52 05/07/21 08:37 Labs: Abnormal Lab Results - Last 24 Hours (Table) 05/06/21 05/06/21 Range/Units 05:44 05:44 WBC 14.0 H (3.8-10.6) k/uL RBC 4.14 L (4.30-5.90) m/uL Hgb 11.6 L (13.0-17.5) gm/dL Hct 36.2 L (39.0-53.0) % Neutrophils # 11.7 H (1.3-7.7) k/uL Sodium 132 L (137-145) mmol/L Glucose 109 H (74-99) mg/dL Calcium 8.2 L (8.4-10.2) mg/dL Microbiology - Last 24 Hours (Table) 05/04/21 20:55 Urine Culture - Final Urine,Voided 05/04/21 20:40 Blood Culture - Preliminary Blood No Growth after 24 hours 05/04/21 20:50 Blood Culture - Preliminary Blood No Growth after 24 hours Assessment and Plan Assessment: Possible urinary tract infection Sepsis with leukocytosis and fever Elevated troponin level likely secondary to recent PCI. Hypovolemic hyponatremia Coronary artery disease with recent PCI to RCA on 04/30/2021 DVT prophylaxis. Plan: This is a pleasant 65 years old male who presents with UTI and sepsis. Continue with ceftriaxone and decrease dose to 2 g daily. Follow-up urine culture. Cardiology request to continue with current management. Obstructive renal ultrasound Continue with normal saline hydration. Currently at 200 mL/h Labs and medication were reviewed, Monitor lytes and vitals. DVT and GI prop hylaxis. Further recommendations depends on the clinical course of the patient DVT prophylaxis: Subcutaneous heparin GI Prophylaxis: Ppi PT/OT: Pending Prognosis is guarded Time with Patient: Greater than 30
--- NOTE | 2021-05-08 14:09 | P.PN ---
Subjective Progress Note Date: 05/07/21 Principal diagnosis: UTI Possible pneumonia This is a pleasant 65 years old male with past medical history of hypertension, renal cancer, schizophrenia, hyperlipidemia, benign prostatic hypertrophy, chronic back pain, depression He was recently discharged from the hospital 4 days ago for non-STEMI status post PCI to RCA on 04/30 Presents because of weakness and lethargy as patient could not get up from bed. Also was complaining from increased frequency of urination make a little amount of urine with no dysuria or suprapubic tenderness 10 or dyspnea. No diarrhea or vomiting. No abdominal pain. On admission patient had a fever of 101.3. Blood pressure was borderline 94/88, currently 110/68. His leukocytosis 17.3, of CBC, INR, BMP and liver enzymes are unremarkable. Sodium is slightly low at 1:30 Urine analysis is suspicious for infection Chest x-ray: No acute process. EKG showing normal sinus rhythm at [address]-T changes. And emergency room he was started on IV fluids and ceftriaxone 05/06/2021 Patient is currently lying in the bed awake alert but lethargic and drowsy. No complaints of chest pain. No compressive abdominal pain. Not eating well. Patient has been afebrile. Continue the antibiotics in the form of ceftriaxone. Urine culture is negative. Laboratory data showed WBC count 20 down to 14.0 hemoglobin 11.6 and platelets 266 Sodium 132 potassium 3.7 BUN 12 and creatinine 0.79, renal ultrasound is nonobstructive. Patient was seen by cardiology due to elevated troponin level. 2-D echocardiogram showed ejection fraction 55-60%. 05/07/2021 Patient is more awake and oriented today. Able to sit in a chair and tolerating oral diet very well. No complains of chest pain or shortness of breath. No compressive abdominal pain. Denied any trouble urinating. Did have a bowel movement. Patient is an antibiotic is normal ceftriaxone. Leukocytosis is improving. Follow-up CBC and BMP tomorrow PTOT is on board and possible rehab transfer in the next 24 hours. Cardiology recommends to continue current management. Current medications reviewed. Objective - Vital Signs Vital signs: Vital Signs Temp 97.0 F L 05/07/21 20:00 Pulse 72 05/07/21 20:00 Resp 16 05/07/21 20:00 BP 125/63 05/07/21 20:00 Pulse Ox 98 05/07/21 20:00 Intake & Output 05/07/21 05/07/21 05/08/21 06:59 18:59 06:59 Intake Total 2987 Output Total 1100 1900 Balance -1100 1087 Weight 94.5 kg Intake: IV 40 Invasive Line 1 10 Invasive Line 2 30 Intake, IV Titration 290 Amount Sodium Chloride 0.9% 1, 240 000 ml @ 20 mls/hr IV . Q24H [facility] Rx#:[id number] cefTRIAXone 2 gm In 50 Sodium Chloride 0.9% 50 ml @ 100 mls/hr IVPB Q24HR [facility] Rx#:[id number] Oral 2657 Output: Urine 1100 1900 Other: Voiding Method Urinal Toilet Urinal # Voids 1 1 # Bowel Movements 1 - Exam -GENERAL: The patient is alert and oriented x3, not in any acute distress. Well generally weak HEENT: Pupils are round and equally reacting to light. EOMI. No scleral icterus. No conjunctival pallor. Normocephalic, atraumatic. No pharyngeal erythema. No thyromegaly. CARDIOVASCULAR: S1 and S2 present. No murmurs, rubs, or gallops. PULMONARY: Chest is clear to auscultation, no wheezing or crackles. ABDOMEN: Soft, nontender, nondistended, normoactive bowel sounds. No palpable organomegaly. MUSCULOSKELETAL: No joint swelling or deformity. EXTREMITIES: No cyanosis, clubbing, or pedal edema. NEUROLOGICAL: Gross neurological examination did not reveal any focal deficits. SKIN: No rashes. No petechiae - Labs CBC & Chem 7: 05/08/21 06:52 05/07/21 08:37 Labs: Abnormal Lab Results - Last 24 Hours (Table) 05/07/21 Range/Units 08:37 BUN 7 L (9-20) mg/dL Glucose 105 H (74-99) mg/dL Microbiology - Last 24 Hours (Table) 05/04/21 20:40 Blood Culture - Preliminary Blood No Growth after 48 hours 05/04/21 20:50 Blood Culture - Preliminary Blood No Growth after 48 hours Assessment and Plan Assessment: Possible urinary tract infection Sepsis with leukocytosis and fever Elevated troponin level likely secondary to recent PCI. Hypovolemic hyponatremia Coronary artery disease with recent PCI to RCA on 04/30/2021 DVT prophylaxis. Plan: This is a pleasant 65 years old male who presents with UTI and sepsis. Continue with ceftriaxone and decrease dose to 2 g daily. Follow-up urine culture. Cardiology request to continue with current management. Obstructive renal ultrasound IV fluids will be discontinued and encourage oral intake. Labs and medication were reviewed, Monitor lytes and vitals. DVT and GI prophylaxis. Further recommendations depends on the clinical course of the patient DVT prophylaxis: Subcutaneous heparin GI Prophylaxis: Ppi PT/OT: Pending Prognosis is guarded Discussed with the patient's sister in detail. Time with Patient: Greater than 30
--- NOTE | 2021-05-08 14:16 | P.DS ---
Providers Date of admission: 05/06/21 08:36 Expected date of discharge: 05/08/21 Attending physician: Kartik Rodriguez Primary care physician: Stated None Hospital Course: discharge diagnosis Possible urinary tract infection. Urine culture showed no growth. Sepsis with leukocytosis and fever. Resolved now. Elevated troponin level likely secondary to recent PCI. Hypovolemic hyponatremia Coronary artery disease with recent PCI to RCA on 04/30/2021 DVT prophylaxis. Hospital course This is a pleasant 65 years old male with past medical history of hypertension, renal cancer, schizophrenia, hyperlipidemia, benign prostatic hypertrophy, chr onic back pain, depression He was recently discharged from the hospital 4 days ago for non-STEMI status post PCI to RCA on 04/30 Presents because of weakness and lethargy as patient could not get up from bed. Also was complaining from increased frequency of urination make a little amount of urine with no dysuria or suprapubic tenderness 10 or dyspnea. No diarrhea or vomiting. No abdominal pain. On admission patient had a fever of 101.3. Blood pressure was borderline 94/88, currently 110/68. His leukocytosis 17.3, of CBC, INR, BMP and liver enzymes are unremarkable. Sodium is slightly low at 1:30 Urine analysis is suspicious for infection Chest x-ray: No acute process. EKG showing normal sinus rhythm at [address]-T changes. And emergency room he was started on IV fluids and ceftriaxone 05/06/2021 Patient is currently lying in the bed awake alert but lethargic and drowsy. No complaints of chest pain. No compressive abdominal pain. Not eating well. Patient has been afebrile. Continue the antibiotics in the form of ceftriaxone. Urine culture is negative. Laboratory data showed WBC count 20 down to 14.0 hemoglobin 11.6 and platelets 266 Sodium 132 potassium 3.7 BUN 12 and creatinine 0.79, renal ultrasound is nonobstructive. Patient was seen by cardiology due to elevated troponin level. 2-D echocardiogram showed ejection fraction 55-60%. 05/07/2021 Patient is more awake and oriented today. Able to sit in a chair and tolerating oral diet very well. No complains of chest pain or shortness of breath. No compressive abdominal pain. Denied any trouble urinating. Did have a bowel movement. Patient is an antibiotic is normal ceftriaxone. Leukocytosis is improving. Follow-up CBC and BMP tomorrow PTOT is on board and possible rehab transfer in the next 24 hours. Cardiology recommends to continue current management. 05/08/2021 Patient is awake alert and oriented 3. Sitting in the chair comfortably. No complaints of chest pain or shortness of breath. No cough or sputum production. Denied any complaints of abdominal pain. No diarrhea or dysuria. Urine culture showed no growth. Patient will be continued on antibiotics for 4 more days to complete the course. Laboratory data showed WBC trending down to 6.9 hemoglobin 12.5 MCV 86.1 and platelets 302 COVID-19 PCR test done on 05/08/2021 showed nondetected. Ratio be continued on PTOT and is being transferred to rehab. PHYSICAL EXAMINATION: Patient is lying in the bed comfortably, no acute distress, awake alert and oriented.. HEENT: Normocephalic. Neck is supple. Pupils reactive. Nostrils clear. Oral cavity is moist. Neck reveals no JVD, carotid bruits, or thyromegaly. CHEST EXAMINATION: Trachea is central. Symmetrical expansion. Lung david clear to auscultation and percussion. CARDIAC: Normal S1, S2 with no gallops. No murmurs ABDOMEN: Soft. Bowel sounds normal. No organomegaly. No abdominal bruits. Extremities: reveal no edema. No clubbing or cyanosis Neurologically awake, alert, oriented x3 with well-coordinated movements. No focal deficits noted Skin: No rash or skin lesions. Psychiatric: Coperative. Nonsuicidal Musculoskeletal: No joint swelling or deformity. Normal range of motion. Vital Signs 05/08/21 05/08/21 09:02 11:19 Temperature 97.9 F 97.3 F L Pulse Rate [ 78 75 Left Pulse Oximetery] Respiratory 18 20 Rate Blood Pressure 114/70 121/74 [Left Arm Supine] O2 Sat by Pulse 97 97 Oximetry Total time taken greater than 35 minutes including 18 minutes for counseling and coordination of care. Patient Condition at Discharge: Stable Plan - Discharge Summary New Discharge Prescriptions: New Cefuroxime Axetil [Ceftin] 500 mg PO BID 4 Days #8 tab Continue Omeprazole 40 mg PO AC-BID Acetaminophen Tab [Tylenol] 1,000 mg PO TID PRN PRN Reason: Fever And/ Or Pain amLODIPine [Norvasc] 2.5 mg PO DAILY 30 Days tab cloZAPine [Clozaril] 200 mg PO DAILY@1600 30 Days tab cloZAPine [Clozaril] 400 mg PO HS@2100 30 Days tab Melatonin 5 mg PO HS PRN 30 Days tab PRN Reason: Insomnia Cyclobenzaprine [Flexeril] 5 mg PO HS PRN PRN Reason: Muscle Spasm Methyl Salicylate/Menthol [Thera-Gesic Creme] 1 applic TOPICAL QID PRN PRN Reason: Pain Aspirin 81 mg PO DAILY 30 Days #30 tab Losartan [Cozaar] 50 mg PO HS 30 Days #30 tab clonazePAM [KlonoPIN] 1 mg PO BID #6 tab Sennosides/Docusate Sodium [Senna Plus 8.6-50 mg Tablet] 2 tab PO DAILY PRN PRN Reason: Constipation Sertraline [Zoloft] 50 mg PO DAILY Tamsulosin HCl [Flomax] 0.4 mg PO DAILY Atorvastatin [Lipitor] 80 mg PO HS 30 Days #30 tab Clopidogrel [Plavix] 75 mg PO DAILY 30 Days #30 tab cloZAPine [Clozaril] 100 mg PO DAILY@0900 Discharge Medication List Acetaminophen Tab [Tylenol] 1,000 mg PO TID PRN 12/09/20 [History] Omeprazole 40 mg PO AC-BID 12/09/20 [History] Sennosides/Docusate Sodium [Senna Plus 8.6-50 mg Tablet] 2 tab PO DAILY PRN 12/09/20 [History] Melatonin 5 mg PO HS PRN 30 Days tab 12/13/20 [Rx] amLODIPine [Norvasc] 2.5 mg PO DAILY 30 Days tab 12/13/20 [Rx] cloZAPine [Clozaril] 200 mg PO DAILY@1600 30 Days tab 12/13/20 [Rx] cloZAPine [Clozaril] 400 mg PO HS@2100 30 Days tab 12/13/20 [Rx] Cyclobenzaprine [Flexeril] 5 mg PO HS PRN 04/27/21 [History] Methyl Salicylate/Menthol [Thera-Gesic Creme] 1 applic TOPICAL QID PRN 04/27/21 [History] Sertraline [Zoloft] 50 mg PO DAILY 04/27/21 [History] Tamsulosin HCl [Flomax] 0.4 mg PO DAILY 04/27/21 [History] Aspirin 81 mg PO DAILY 30 Days #30 tab 04/30/21 [Rx] Atorvastatin [Lipitor] 80 mg PO HS 30 Days #30 tab 04/30/21 [Rx] Losartan [Cozaar] 50 mg PO HS 30 Days #30 tab 04/30/21 [Rx] Clopidogrel [Plavix] 75 mg PO DAILY 30 Days #30 tab 05/01/21 [Rx] cloZAPine [Clozaril] 100 mg PO DAILY@0900 05/04/21 [History] Cefuroxime Axetil [Ceftin] 500 mg PO BID 4 Days #8 tab 05/08/21 [Rx] clonazePAM [KlonoPIN] 1 mg PO BID #6 tab 05/08/21 [Rx] Follow up Appointment(s)/Referral(s): Tonya Vazquez MD [STAFF PHYSICIAN] - 1 Week None,Stated [Primary Care Provider] - 1-2 days Discharge Disposition: TRANSFER TO SNF/ECF
== END 2021-05-08 16:46 | DRG 871 ==
LOC: EC 20:16 → 3SCARD 22:21 → OBSVTOIN 05-06 08:36
PROVIDERS: ADMIT Hospitalist; ATTEND Hospitalist
DX: A41.9 Sepsis, unspecified organism (principal); I21.4 Non-ST elevation (NSTEMI) myocardial infarction; E87.1 Hypo-osmolality and hyponatremia; N39.0 Urinary tract infection, site not specified; E78.5 Hyperlipidemia, unspecified; I25.10 Atherosclerotic heart disease of native coronary artery without angina pectoris; E86.1 Hypovolemia; F20.9 Schizophrenia, unspecified; I10 Essential (primary) hypertension; Z20.822 Contact with and (suspected) exposure to COVID-19; G89.29 Other chronic pain; I45.10 Unspecified right bundle-branch block; N40.0 Benign prostatic hyperplasia without lower urinary tract symptoms; R77.8 Other specified abnormalities of plasma proteins; E86.0 Dehydration; M54.9 Dorsalgia, unspecified; I25.2 Old myocardial infarction; Z79.02 Long term (current) use of antithrombotics/antiplatelets; Z79.82 Long term (current) use of aspirin; Z79.899 Other long term (current) drug therapy; Z85.528 Personal history of other malignant neoplasm of kidney; Z87.440 Personal history of urinary (tract) infections; Z95.5 Presence of coronary angioplasty implant and graft; Z85.828 Personal history of other malignant neoplasm of skin
CPT/HCPCS: 36415; 71046; 76770; 80048; 80053; 81001; 83605; 83735; 84484; 85025; 85610; 85730; 87040; 87086; 87635; 93005; 96360; 99285

== ENCOUNTER 2021-07-28 13:18 | Emergency (ER) | payer OTHER, MEDICARE ==
[2021-07-28] MEDS ORDERED: SODIUM CHLORIDE 0.9% 500 ML 500 ML IV STA (18:33)
--- NOTE | 2021-07-28 18:37 | ED ---
General Adult HPI - General Chief complaint: Weakness Stated complaint: legs and arm numb, fall, hx of uti Time Seen by Provider: 07/28/21 18:30 Source: patient, family, RN notes reviewed, old records reviewed Mode of arrival: wheelchair Limitations: no limitations - History of Present Illness Initial comments: 65-year-old male presents to the emergency room with a family member complaining of 2 days of weakness and ataxia. He received his Covid booster on Thursday. He denies any fevers, abdominal pain, nausea, vomiting or diarrhea but does state that he is feeling weak. He has not eaten today and yesterday had a decreased appetite. Per family, patient has had to have his food brought to his room at [facility] where he is staying because he was too weak and unsteady to go down and get it himself. He does have a history of renal cancer, hypertension. Family states that last time he had these symptoms he had a heart catheterization and a stent placed by Dr. Vazquez. He also has a history of urinary tract infections. -: days(s) (2) Severity scale (1-10): 0 Associated Symptoms: confusion, weakness, other (ataxia, sore throat) Treatments Prior to Arrival: none - Related Data Home Medications Medication Instructions Recorded Confirmed Acetaminophen Tab [Tylenol] 1,000 mg PO Q8H PRN 12/09/20 07/28/21 Omeprazole 40 mg PO AC-BID 12/09/20 07/28/21 Sennosides/Docusate Sodium [Senna 2 tab PO DAILY PRN 12/09/20 07/28/21 Plus 8.6-50 mg Tablet] Cyclobenzaprine [Flexeril] 5 mg PO HS PRN 04/27/21 07/28/21 Sertraline [Zoloft] 50 mg PO DAILY 04/27/21 07/28/21 Tamsulosin HCl [Flomax] 0.4 mg PO DAILY 04/27/21 07/28/21 cloZAPine [Clozaril] 100 mg PO DAILY@0900 05/04/21 07/28/21 Aspirin 81 mg PO DAILY@1700 07/28/21 07/28/21 Docusate [Colace] 100 mg PO BID 07/28/21 07/28/21 Losartan [Cozaar] 25 mg PO HS 07/28/21 07/28/21 Methyl Salicylate/Menth/Camph 1 applic TOPICAL QID PRN 07/28/21 07/28/21 [Bengay Ultra Strength Cream] Metoprolol Tartrate [Lopressor] 25 mg PO DAILY 07/28/21 07/28/21 cloZAPine [Clozaril] 400 mg PO HS 07/28/21 07/28/21 Previous Rx's Medication Instructions Recorded Melatonin 5 mg PO HS PRN 30 Days tab 12/13/20 cloZAPine [Clozaril] 200 mg PO DAILY@1600 30 Days tab 12/13/20 Atorvastatin [Lipitor] 80 mg PO HS 30 Days #30 tab 04/30/21 Clopidogrel [Plavix] 75 mg PO DAILY 30 Days #30 tab 05/01/21 clonazePAM [KlonoPIN] 1 mg PO BID #6 tab 05/08/21 Allergies Allergy/AdvReac Type Severity Reaction Status Date / Time No Known Allergies Allergy Verified 07/28/21 19:03 Review of Systems ROS Statement: Those systems with pertinent positive or pertinent negative responses have been documented in the HPI. ROS Other: All systems not noted in ROS Statement are negative. Past Medical History Past Medical History: Hypertension Additional Past Medical History / Comment(s): renal CA with surgery History of Any Multi-Drug Resistant Organisms: Unobtainable Past Surgical History: Heart Catheterization With Stent, Orthopedic Surgery Additional Past Surgical History / Comment(s): cryoablation for renal CA, Heart Catheterization 04/23/2021, Past Psychological History: Schizophrenia Smoking Status: Never smoker Past Alcohol Use History: None Reported Past Drug Use History: None Reported General Exam Limitations: no limitations General appearance: alert, in no apparent distress Head exam: Present: atraumatic, normocephalic, normal inspection Eye exam: Present: normal appearance, EOMI. Absent: scleral icterus, conjunctival injection, periorbital swelling Pupils: Present: miosis ENT exam: Present: normal exam, normal oropharynx, mucous membranes moist Neck exam: Present: normal inspection, full ROM. Absent: tenderness, meningismus, lymphadenopathy, thyromegaly Respiratory exam: Present: normal lung sounds bilaterally. Absent: respiratory distress, wheezes, rales, rhonchi, stridor, chest wall tenderness, accessory muscle use, decreased breath sounds Cardiovascular Exam: Present: regular rate, normal rhythm, normal heart sounds. Absent: systolic murmur, diastolic murmur, rubs, gallop, clicks, JVD GI/Abdominal exam: Present: soft, normal bowel sounds. Absent: distended, tenderness, guarding, rebound, rigid Extremities exam: Present: normal inspection, full ROM, normal capillary refill. Absent: tenderness, pedal edema, joint swelling, calf tenderness Back exam: Present: normal inspection. Absent: tenderness, CVA tenderness (R), CVA tenderness (L), rash noted Neurological exam: Present: alert Expanded Cerebellar function: Finger to Nose: Abnormal Right (difficulty due to tremors) Eye Response: (4) open spontaneously Motor Response: (6) obeys commands Verbal Response: (5) oriented Rubin Total: 15 Psychiatric exam: Present: normal affect, normal mood Skin exam: Present: warm, dry, intact, normal color. Absent: rash, cyanosis, diaphoretic Course Vital Signs 07/28/21 07/28/21 07/28/21 13:51 22:19 23:18 Temperature 97.7 F 97.6 F Pulse Rate 78 71 82 Respiratory 18 15 16 Rate Blood Pressure 91/64 150/78 133/78 O2 Sat by Pulse 98 99 97 Oximetry EKG Findings - EKG Results: EKG: sinus rhythm (Ventricular rate of 78, ME interval 0.138, QRS 0.90, QTC 0.465) Medical Decision Making - Medical Decision Making 65-year-old male presents with 2 days of weakness and ataxia. He received his Covid booster on Thursday. He denies any fevers, abdominal pain, nausea, vomiting or diarrhea. CBC shows no evidence of leukocytosis. Sodium is 132 and patient was given IV fluids. His blood glucose is 102. Troponin is negative at 0.012, EKG shows no ST elevation. Chest x-ray shows no acute cardiopulmonary process. Patient is Covid positive today. He was given the monoclonal antibodies infusion and tolerated it well. His vi kong signs are stable. Oxygen saturation is 99% on room air. He's been afebrile. Blood pressure is 150/78. He'll be discharged back to [facility]. Case was discussed with Dr. Byrd. - Lab Data Result diagrams: 07/28/21 18:45 07/28/21 18:45 Lab Results 01/02/22 01/02/22 01/02/22 Range/Units 18:45 18:45 18:45 WBC 5.6 (3.8-10.6) k/uL RBC 4.56 (4.30-5.90) m/uL Hgb 12.7 L (13.0-17.5) gm/dL Hct 38.8 L (39.0-53.0) % MCV 85.3 (80.0-100.0) fL MCH 28.0 (25.0-35.0) pg MCHC 32.8 (31.0-37.0) g/dL RDW 16.0 H (11.5-15.5) % Plt Count 202 (150-450) k/uL MPV 7.8 Neutrophils % 68 % Lymphocytes % 20 % Monocytes % 9 % Eosinophils % 0 % Basophils % 1 % Neutrophils # 3.8 (1.3-7.7) k/uL Lymphocytes # 1.1 (1.0-4.8) k/uL Monocytes # 0.5 (0-1.0) k/uL Eosinophils # 0.0 (0-0.7) k/uL Basophils # 0.0 (0-0.2) k/uL Anisocytosis Slight PT 10.7 (9.0-12.0) sec INR 1.0 (<1.2) APTT 24.6 (22.0-30.0) sec Sodium 132 L (137-145) mmol/L Potassium 3.9 (3.5-5.1) mmol/L Chloride 99 (98-107) mmol/L Carbon Dioxide 21 L (22-30) mmol/L Anion Gap 12 mmol/L BUN 15 (9-20) mg/dL Creatinine 1.20 (0.66-1.25) mg/dL Est GFR (CKD-EPI)AfAm 73 (>60 ml/min/1.73 sqM) Est GFR (CKD-EPI)NonAf 63 (>60 ml/min/1.73 sqM) Glucose 102 H (74-99) mg/dL POC Glucose (mg/dL) (75-99) mg/dL POC Glu Rn Hematology ID Plasma Lactic Acid Rene (0.7-2.0) mmol/L Calcium 8.7 (8.4-10.2) mg/dL Magnesium 2.2 (1.6-2.3) mg/dL Total Bilirubin 0.7 (0.2-1.3) mg/dL AST 28 (17-59) U/L ALT 17 (4-49) U/L Alkaline Phosphatase 94 (38-126) U/L Troponin I (0.000-0.034) ng/mL Total Protein 6.7 (6.3-8.2) g/dL Albumin 4.4 (3.5-5.0) g/dL Urine Color Urine Appearance (Clear) Urine pH (5.0-8.0) Ur Specific Kent (1.001-1.035) Urine Protein (Negative) Urine Glucose (UA) (Negative) Urine Ketones (Negative) Urine Blood (Negative) Urine Nitrite (Negative) Urine Bilirubin (Negative) Urine Urobilinogen (<2.0) mg/dL Ur Leukocyte Esterase (Negative) Urine RBC (0-5) /hpf Urine WBC (0-5) /hpf Urine Bacteria (None) /hpf Urine Mucus (None) /hpf Influenza Type A (PCR) (Not Detectd) Influenza Type B (PCR) (Not Detectd) RSV (PCR) (Not Detectd) SARS-CoV-2 (PCR) (Not Detectd) 07/28/21 07/28/21 07/28/21 Range/Units 18:45 18:45 19:30 WBC (3.8-10.6) k/uL RBC (4.30-5.90) m/uL Hgb (13.0-17.5) gm/dL Hct (39.0-53.0) % MCV (80.0-100.0) fL MCH (25.0-35.0) pg MCHC (31.0-37.0) g/dL RDW (11.5-15.5) % Plt Count (150-450) k/uL MPV Neutrophils % % Lymphocytes % % Monocytes % % Eosinophils % % Basophils % % Neutrophils # (1.3-7.7) k/uL Lymphocytes # (1.0-4.8) k/uL Monocytes # (0-1.0) k/uL Eosinophils # (0-0.7) k/uL Basophils # (0-0.2) k/uL Anisocytosis PT (9.0-12.0) sec INR (<1.2) APTT (22.0-30.0) sec Sodium (137-145) mmol/L Potassium (3.5-5.1) mmol/L Chloride (98-107) mmol/L Carbon Dioxide (22-30) mmol/L Anion Gap mmol/L BUN (9-20) mg/dL Creatinine (0.66-1.25) mg/dL Est GFR (CKD-EPI)AfAm (>60 ml/min/1.73 sqM) Est GFR (CKD-EPI)NonAf (>60 ml/min/1.73 sqM) Glucose (74-99) mg/dL POC Glucose (mg/dL) (75-99) mg/dL POC Glu Rn Hematology ID Plasma Lactic Acid Rene 1.2 (0.7-2.0) mmol/L Calcium (8.4-10.2) mg/dL Magnesium (1.6-2.3) mg/dL Total Bilirubin (0.2-1.3) mg/dL AST (17-59) U/L ALT (4-49) U/L Alkaline Phosphatase (38-126) U/L Troponin I <0.012 (0.000-0.034) ng/mL Total Protein (6.3-8.2) g/dL Albumin (3.5-5.0) g/dL Urine Color Urine Appearance (Clear) Urine pH (5.0-8.0) Ur Specific Kent (1.001-1.035) Urine Protein (Negative) Urine Glucose (UA) (Negative) Urine Ketones (Negative) Urine Blood (Negative) Urine Nitrite (Negative) Urine Bilirubin (Negative) Urine Urobilinogen (<2.0) mg/dL Ur Leukocyte Esterase (Negative) Urine RBC (0-5) /hpf Urine WBC (0-5) /hpf Urine Bacteria (None) /hpf Urine Mucus (None) /hpf Influenza Type A (PCR) Not Detected (Not Detectd) Influenza Type B (PCR) Not Detected (Not Detectd) RSV (PCR) Not Detected (Not Detectd) SARS-CoV-2 (PCR) Detected A (Not Detectd) 07/28/21 07/28/21 Range/Units 19:33 23:29 WBC (3.8-10.6) k/uL RBC (4.30-5.90) m/uL Hgb (13.0-17.5) gm/dL Hct (39.0-53.0) % MCV (80.0-100.0) fL MCH (25.0-35.0) pg MCHC (31.0-37.0) g/dL RDW (11.5-15.5) % Plt Count (150-450) k/uL MPV Neutrophils % % Lymphocytes % % Monocytes % % Eosinophils % % Basophils % % Neutrophils # (1.3-7.7) k/uL Lymphocytes # (1.0-4.8) k/uL Monocytes # (0-1.0) k/uL Eosinophils # (0-0.7) k/uL Basophils # (0-0.2) k/uL Anisocytosis PT (9.0-12.0) sec INR (<1.2) APTT (22.0-30.0) sec Sodium (137-145) mmol/L Potassium (3.5-5.1) mmol/L Chloride (98-107) mmol/L Carbon Dioxide (22-30) mmol/L Anion Gap mmol/L BUN (9-20) mg/dL Creatinine (0.66-1.25) mg/dL Est GFR (CKD-EPI)AfAm (>60 ml/min/1.73 sqM) Est GFR (CKD-EPI)NonAf (>60 ml/min/1.73 sqM) Glucose (74-99) mg/dL POC Glucose (mg/dL) 90 (75-99) mg/dL POC Glu Rn Hematology [place] Katelynn Cortes Plasma Lactic Acid Rene (0.7-2.0) mmol/L Calcium (8.4-10.2) mg/dL Magnesium (1.6-2.3) mg/dL Total Bilirubin (0.2-1.3) mg/dL AST (17-59) U/L ALT (4-49) U/L Alkaline Phosphatase (38-126) U/L Troponin I (0.000-0.034) ng/mL Total Protein (6.3-8.2) g/dL Albumin (3.5-5.0) g/dL Urine Color Yellow Urine Appearance Clear (Clear) Urine pH 6.0 (5.0-8.0) Ur Specific Kent 1.022 (1.001-1.035) Urine Protein 1+ H (Negative) Urine Glucose (UA) Negative (Negative) Urine Ketones Trace H (Negative) Urine Blood Moderate H (Negative) Urine Nitrite Negative (Negative) Urine Bilirubin Negative (Negative) Urine Urobilinogen 3.0 (<2.0) mg/dL Ur Leukocyte Esterase Small H (Negative) Urine RBC 3 (0-5) /hpf Urine WBC 12 H (0-5) /hpf Urine Bacteria Many H (None) /hpf Urine Mucus Occasional H (None) /hpf Influenza Type A (PCR) (Not Detectd) Influenza Type B (PCR) (Not Detectd) RSV (PCR) (Not Detectd) SARS-CoV-2 (PCR) (Not Detectd) Disposition Clinical Impression: COVID-19 Disposition: HOME SELF-CARE Condition: Good Instructions (If sedation given, give patient instructions): Coronavirus Disease 2019 (COVID-19) Additional Instructions: Self quarantine for 10 days from symptom onset. You can take Tylenol as needed for body aches. Return to the emergency room with any new or concerning symptoms. Is patient prescribed a controlled substance at d/c from ED?: No Referrals: [facility],Clinic [REFERRING] - 1-2 days Time of Disposition: 23:57
[2021-07-28 19:20] LABS: Anisocytosis Slight; Basophils % (A) 1 %; Eosinophils % (A) 0 %; HCT 38.8 % (39.0-53.0); HGB 12.7 gm/dL (13.0-17.5); Lymphocytes # (A) 1.1 k/uL (1.0-4.8); Lymphocytes % (A) 20 %; MCHC 32.8 g/dL (31.0-37.0); MCV 85.3 fL (80.0-100.0); Mean Platelet Volume 7.8; Monocytes # (A) 0.5 k/uL (0-1.0); Monocytes % (A) 9 %; Neutrophils # (A) 3.8 k/uL (1.3-7.7); Neutrophils % (A) 68 %; Platelet Count 202 k/uL (150-450); RBC 4.56 m/uL (4.30-5.90); WBC 5.6 k/uL (3.8-10.6)
[2021-07-28 19:23] LABS: Albumin 4.4 g/dL (3.5-5.0); Calcium 8.7 mg/dL (8.4-10.2); Magnesium 2.2 mg/dL (1.6-2.3); Potassium 3.9 mmol/L (3.5-5.1); Total Bilirubin 0.7 mg/dL (0.2-1.3); Total Protein 6.7 g/dL (6.3-8.2)
[2021-07-28 19:26] LABS: Partial Thromboplastin Time 24.6 sec (22.0-30.0); Prothrombin Time 10.7 sec (9.0-12.0)
--- NOTE | 2021-07-28 19:32 | XR ---
EXAMINATION TYPE: XR chest 2V DATE OF EXAM: 07/28/2021 COMPARISON: 05/04/2021 HISTORY: Weakness TECHNIQUE: 2 view FINDINGS: Heart is normal. Lungs are clear of consolidation. There are no hilar masses. Bony thorax i s intact. The pulmonary vascularity is normal. IMPRESSION: Normal chest. No change.
[2021-07-28 19:35] LABS: Glucose,Whole Blood 90 mg/dL (75-99)
[2021-07-28] MEDS ORDERED: SODIUM CHLORIDE 0.9% 500 ML 500 ML IV ONE (20:29)
[2021-07-28] MEDS ORDERED: SODIUM CHLORIDE 0.9% 50 ML IVPB ONE (21:45)
[2021-07-28] MEDS ORDERED: BAMLANIVIMAB (EUA) 700 MG, ETESEVIMAB (EUA) 1,400 MG in SODIUM CHLORIDE 0.9% 100 ML IVPB ONE (21:45)
[2021-07-28 23:19] VITALS: BP 133/78; PULSE 82; RESP 16; TEMP 97.6
[2021-07-28 23:53] LABS: Appearance,Urine Clear (Clear); Bacteria,Urine Many /hpf; Bilirubin,Urine Negative (Negative); Blood,Urine Moderate (Negative); Color,Urine Yellow; Glucose,Urine (UA) Negative (Negative); Ketones,Urine Trace (Negative); Leukocyte Esterase,Urine Small (Negative); Mucus,Urine Occasional /hpf; Nitrite,Urine Negative (Negative); Protein,Urine 1+ (Negative); RBC,Urine 3 /hpf (0-5); Specific Gravity,Urine 1.022 (1.001-1.035); WBC,Urine 12 /hpf (0-5)
== END 2021-07-28 23:41 | disposition home or self-care (01) ==
LOC: EC 13:18
DX: U07.1 COVID-19 (principal); I10 Essential (primary) hypertension; F20.9 Schizophrenia, unspecified; Z79.82 Long term (current) use of aspirin; Z79.899 Other long term (current) drug therapy
CPT/HCPCS: 36415; 93005; 80053; 83605; 83735; 84484; 85025; 85610; 85730; 81001; 87086; 87077; 87186; 87636; 71046; 99285; J3490

== ENCOUNTER 2021-11-16 08:43 | Emergency (ER) | payer OTHER, MEDICARE ==
[2021-11-16 08:50] VITALS: TEMP 97.2
[2021-11-16] MEDS ORDERED: KETOROLAC 15 MG/ML 1 ML VIAL IVP STA (09:05)
[2021-11-16] MEDS ORDERED: SODIUM CHLORIDE 0.9% 1,000 ML IV ONE (09:06)
--- NOTE | 2021-11-16 09:43 | XR ---
KUB HISTORY: Abdominal pain Frontal KUB and 2 images Lung bases are clear. There is no evident bowel obstruction or pneumoperitoneum. Retained fecal debri s is present throughout the distribution of much of the colon. Bone mineralization is normal. There a re calcifications within the pelvis which are felt likely to represent phleboliths. Possible injectio n granuloma noted over the right gluteal region. IMPRESSION: Nonspecific findings.
[2021-11-16 10:05] LABS: Basophils % (A) 0 %; Eosinophils # (A) 0.2 k/uL (0-0.7); Eosinophils % (A) 2 %; HCT 40.7 % (39.0-53.0); HGB 13.1 gm/dL (13.0-17.5); Lymphocytes # (A) 1.3 k/uL (1.0-4.8); Lymphocytes % (A) 13 %; MCH 28.2 pg (25.0-35.0); MCHC 32.2 g/dL (31.0-37.0); MCV 87.5 fL (80.0-100.0); Mean Platelet Volume 7.8; Monocytes # (A) 0.5 k/uL (0-1.0); Monocytes % (A) 5 %; Neutrophils # (A) 7.8 k/uL (1.3-7.7); Neutrophils % (A) 78 %; Platelet Count 271 k/uL (150-450); RBC 4.65 m/uL (4.30-5.90); RDW 15.7 % (11.5-15.5)
[2021-11-16 10:08] LABS: ALT 14 U/L (4-49); AST 21 U/L (17-59); African American GFR (CKD) >90 (>60 ml/min/1.73 sqM); Albumin 4.2 g/dL (3.5-5.0); Alkaline Phosphatase 75 U/L (38-126); Amylase 51 U/L (30-110); Anion Gap 7 mmol/L; Blood Urea Nitrogen 9 mg/dL (9-20); Calcium 8.8 mg/dL (8.4-10.2); Carbon Dioxide 26 mmol/L (22-30); Chloride 99 mmol/L (98-107); Glucose 99 mg/dL (74-99); Lipase 80 U/L (23-300); Non-African American GFR(CKD) 85 (>60 ml/min/1.73 sqM); Potassium 4.6 mmol/L (3.5-5.1); Sodium 132 mmol/L (137-145); Total Bilirubin 0.7 mg/dL (0.2-1.3); Total Protein 6.5 g/dL (6.3-8.2)
[2021-11-16 11:19] VITALS: BP 148/85; PULSE 66; RESP 18
--- NOTE | 2021-11-16 11:47 | ED ---
Abdominal Pain HPI - General Chief Complaint: Abdominal Pain Stated Complaint: Abd Pain Time Seen by Provider: 11/16/21 08:52 Source: patient Mode of arrival: ambulatory Limitations: no limitations - History of Present Illness Initial Comments: Patient is a 65-year-old male presenting with chief complaint of abdominal pain. Patient states that at 0400 he began experiencing sudden onset sharp right lower quadrant pain. Patient states that the pain is worse with lying flat. It is not associated with any nausea or vomiting. Patient admits that he does have recurrent bouts of constipation and takes stool softener daily. Patient states that he had a bowel movement yesterday, his last several days worth of bowel movements have been more firm than usual. He denies dysuria, hematuria, urgency, frequency, nausea, vomiting, diarrhea, hematochezia, hematemesis, cough, hemoptysis, chest pain, shortness of breath, fever, chills, URI-like symptoms, weakness. - Related Data Home Medications Medication Instructions Recorded Confirmed Acetaminophen Tab [Tylenol] 1,000 mg PO Q8H PRN 12/09/20 07/28/21 Omeprazole 40 mg PO AC-BID 12/09/20 07/28/21 Sennosides/Docusate Sodium [Senna 2 tab PO DAILY PRN 12/09/20 07/28/21 Plus 8.6-50 mg Tablet] Cyclobenzaprine [Flexeril] 5 mg PO HS PRN 04/27/21 07/28/21 Sertraline [Zoloft] 50 mg PO DAILY 04/27/21 07/28/21 Tamsulosin HCl [Flomax] 0.4 mg PO DAILY 04/27/21 07/28/21 cloZAPine [Clozaril] 100 mg PO DAILY@0900 05/04/21 07/28/21 Aspirin 81 mg PO DAILY@1700 07/28/21 07/28/21 Docusate [Colace] 100 mg PO BID 07/28/21 07/28/21 Losartan [Cozaar] 25 mg PO HS 07/28/21 07/28/21 Methyl Salicylate/Menth/Camph 1 applic TOPICAL QID PRN 07/28/21 07/28/21 [Bengay Ultra Strength Cream] Metoprolol Tartrate [Lopressor] 25 mg PO DAILY 07/28/21 07/28/21 cloZAPine [Clozaril] 400 mg PO HS 07/28/21 07/28/21 Previous Rx's Medication Instructions Recorded Melatonin 5 mg PO HS PRN 30 Days tab 12/13/20 cloZAPine [Clozaril] 200 mg PO DAILY@1600 30 Days tab 12/13/20 Atorvastatin [Lipitor] 80 mg PO HS 30 Days #30 tab 04/30/21 Clopidogrel [Plavix] 75 mg PO DAILY 30 Days #30 tab 05/01/21 clonazePAM [KlonoPIN] 1 mg PO BID #6 tab 05/08/21 Sulfamethox-Tmp 800-160Mg [Bactrim 1 tab PO Q12HR 7 Days #14 tab 11/16/21 DS 800-160 mg] Allergies Allergy/AdvReac Type Severity Reaction Status Date / Time No Known Allergies Allergy Verified 11/16/21 08:46 Review of Systems ROS Statement: Those systems with pertinent positive or pertinent negative responses have been documented in the HPI. ROS Other: All systems not noted in ROS Statement are negative. Past Medical History Past Medical History: Hypertension Additional Past Medical History / Comment(s): renal CA with surgery History of Any Multi-Drug Resistant Organisms: Unobtainable Past Surgical History: Heart Catheterization With Stent, Orthopedic Surgery Additional Past Surgical History / Comment(s): cryoablation for renal CA, Heart Catheterization 04/23/2021, Past Psychological History: Schizophrenia Smoking Status: Never smoker Past Alcohol Use History: None Reported Past Drug Use History: None Reported General Exam Limitations: no limitations General appearance: alert, in no apparent distress Head exam: Present: atraumatic, normocephalic, normal inspection Eye exam: Present: normal appearance, EOMI. Absent: scleral icterus Neck exam: Present: normal inspection Respiratory exam: Present: normal lung sounds bilaterally. Absent: respiratory distress, wheezes, rales, rhonchi, stridor Cardiovascular Exam: Present: regular rate, normal rhythm, normal heart sounds. Absent: systolic murmur, diastolic murmur, rubs, gallop, clicks GI/Abdominal exam: Present: soft, tenderness, normal bowel sounds, hernia (Not reducible, located on the right lower side, painful on palpation). Absent: distended, guarding, rebound, rigid exam: Absent: testicular tenderness, scrotal swelling Neurological exam: Present: alert, oriented X3, CN II-XII intact Psychiatric exam: Present: normal affect, normal mood Skin exam: Present: warm, dry, intact, normal color. Absent: rash Course Vital Signs 11/16/21 11/16/21 11/16/21 08:46 09:46 11:18 Temperature 97.2 F L Pulse Rate 75 66 Respiratory 16 18 Rate Blood Pressure 88/64 136/94 148/85 O2 Sat by Pulse 98 100 Oximetry Medical Decision Making - Medical Decision Making Patient is a 65-year-old male presenting with chief complaint of right lower quadrant pain. Pain came on very suddenly at 0400 this morning. Patient admits to recurrent constipation. On exam there is a tender mass likely representing a hernia in the inguinal region. No pain on palpation of the testicles. UA is suspicious for UTI. CT with contrast shows right inguinal hernia with possible inflammatory changes. Also remarkable for fecal stasis. I consulted surgery broadcast director operations Dr. Shine. He was able to reduce the hernia. Instructed that the [facility] or through his group with Dr. Khoury. Advised treatment for UTI. Patient was treated with Bactrim double strength twice a day for 7 days. I provided the patient with referral to Dr. Khoury and indicated that he may follow-up with [facility] or the [facility]. Follow-up with primary care in 1-2 days. Report back to ER if any worsening symptoms. I educated the patient on return parameters and answered all questions. Patient conveyed verbal understanding and agreed to the plan. I discussed this case with my attending Dr. Deleon - Lab Data Result diagrams: 11/16/21 09:46 11/16/21 09:46 Lab Results 11/16/21 11/16/21 11/16/21 Range/Units 09:46 09:46 09:46 WBC 10.0 (3.8-10.6) k/uL RBC 4.65 (4.30-5.90) m/uL Hgb 13.1 (13.0-17.5) gm/dL Hct 40.7 (39.0-53.0) % MCV 87.5 (80.0-100.0) fL MCH 28.2 (25.0-35.0) pg MCHC 32.2 (31.0-37.0) g/dL RDW 15.7 H (11.5-15.5) % Plt Count 271 (150-450) k/uL MPV 7.8 Neutrophils % 78 % Lymphocytes % 13 % Monocytes % 5 % Eosinophils % 2 % Basophils % 0 % Neutrophils # 7.8 H (1.3-7.7) k/uL Lymphocytes # 1.3 (1.0-4.8) k/uL Monocytes # 0.5 (0-1.0) k/uL Eosinophils # 0.2 (0-0.7) k/uL Basophils # 0.0 (0-0.2) k/uL Sodium 132 L (137-145) mmol/L Potassium 4.6 (3.5-5.1) mmol/L Chloride 99 (98-107) mmol/L Carbon Dioxide 26 (22-30) mmol/L Anion Gap 7 mmol/L BUN 9 (9-20) mg/dL Creatinine 0.94 (0.66-1.25) mg/dL Est GFR (CKD-EPI)AfAm >90 (>60 ml/min/1.73 sqM) Est GFR (CKD-EPI)NonAf 85 (>60 ml/min/1.73 sqM) Glucose 99 (74-99) mg/dL Plasma Lactic Acid Rene 1.1 (0.7-2.0) mmol/L Calcium 8.8 (8.4-10.2) mg/dL Total Bilirubin 0.7 (0.2-1.3) mg/dL AST 21 (17-59) U/L ALT 14 (4-49) U/L Alkaline Phosphatase 75 (38-126) U/L Total Protein 6.5 (6.3-8.2) g/dL Albumin 4.2 (3.5-5.0) g/dL Amylase 51 (30-110) U/L Lipase 80 (23-300) U/L Urine Color Urine Appearance (Clear) Urine pH (5.0-8.0) Ur Specific [place] (1.001-1.035) Urine Protein (Negative) Urine Glucose (UA) (Negative) Urine Ketones (Negative) Urine Blood (Negative) Urine Nitrite (Negative) Urine Bilirubin (Negative) Urine Urobilinogen (<2.0) mg/dL Ur Leukocyte Esterase (Negative) Urine RBC (0-5) /hpf Urine WBC (0-5) /hpf Ur Squamous Epith Cells (0-4) /hpf Amorphous Sediment (None) /hpf Urine Bacteria (None) /hpf Urine Mucus (None) /hpf 11/16/21 Range/Units 12:03 WBC (3.8-10.6) k/uL RBC (4.30-5.90) m/uL Hgb (13.0-17.5) gm/dL Hct (39.0-53.0) % MCV (80.0-100.0) fL MCH (25.0-35.0) pg MCHC (31.0-37.0) g/dL RDW (11.5-15.5) % Plt Count (150-450) k/uL MPV Neutrophils % % Lymphocytes % % Monocytes % % Eosinophils % % Basophils % % Neutrophils # (1.3-7.7) k/uL Lymphocytes # (1.0-4.8) k/uL Monocytes # (0-1.0) k/uL Eosinophils # (0-0.7) k/uL Basophils # (0-0.2) k/uL Sodium (137-145) mmol/L Potassium (3.5-5.1) mmol/L Chloride (98-107) mmol/L Carbon Dioxide (22-30) mmol/L Anion Gap mmol/L BUN (9-20) mg/dL Creatinine (0.66-1.25) mg/dL Est GFR (CKD-EPI)AfAm (>60 ml/min/1.73 sqM) Est GFR (CKD-EPI)NonAf (>60 ml/min/1.73 sqM) Glucose (74-99) mg/dL Plasma Lactic Acid Rene (0.7-2.0) mmol/L Calcium (8.4-10.2) mg/dL Total Bilirubin (0.2-1.3) mg/dL AST (17-59) U/L ALT (4-49) U/L Alkaline Phosphatase (38-126) U/L Total Protein (6.3-8.2) g/dL Albumin (3.5-5.0) g/dL Amylase (30-110) U/L Lipase (23-300) U/L Urine Color Yellow Urine Appearance Clear (Clear) Urine pH 7.5 (5.0-8.0) Ur Specific [place] 1.029 (1.001-1.035) Urine Protein Trace H (Negative) Urine Glucose (UA) Negative (Negative) Urine Ketones Negative (Negative) Urine Blood Negative (Negative) Urine Nitrite Negative (Negative) Urine Bilirubin Negative (Negative) Urine Urobilinogen 2.0 (<2.0) mg/dL Ur Leukocyte Esterase Large H (Negative) Urine RBC 1 (0-5) /hpf Urine WBC 51 H (0-5) /hpf Ur Squamous Epith Cells 1 (0-4) /hpf Amorphous Sediment Rare H (None) /hpf Urine Bacteria Occasional H (None) /hpf Urine Mucus Rare H (None) /hpf Disposition Clinical Impression: Inguinal hernia, UTI (urinary tract infection) Disposition: HOME SELF-CARE Condition: Good Instructions (If sedation given, give patient instructions): Urinary Tract Infection in Men (DC), Inguinal Hernia (ED) Additional Instructions: Take medications as prescribed. Follow-up with primary care this week. Follow- up with surgery this week. Report back to ER with any worsening symptoms. Prescriptions: Sulfamethox-Tmp 800-160Mg [Bactrim DS 800-160 mg] 1 tab PO Q12HR 7 Days #14 tab Is patient prescribed a controlled substance at d/c from ED?: No Referrals: [facility],Clinic [Primary Care Provider] - 1-2 days Jonathan Khoury DO [Doctor of Osteopathic Medicine] - 1-2 days Time of Disposition: 14:07
--- NOTE | 2021-11-16 11:53 | CT ---
EXAMINATION TYPE: CT abdomen pelvis w con DATE OF EXAM: 11/16/2021 COMPARISON: KUB same date HISTORY: Rt lower quad. pain CT DLP: 1427.9 mGycm Automated exposure control for dose reduction was used. TECHNIQUE: Helical acquisition of images from the lung bases through the pelvis have been completed. CONTRAST: Performed without Oral Contrast and with IV Contrast, patient injected with 100 mL of Isovue 300. FINDINGS: Coronary artery calcifications present. There is thickening of the distal esophagus, postop changes are present post Rebecca fundoplication. There is a right inguinal hernia containing fat, there is some associated inflammatory change present , some local fluid is present caudally. An umbilical hernia contains fat. LUNG BASES: No significant abnormality is appreciated. AORTA: No significant abnormality is appreciated. LIVER/GB: No significant abnormality is appreciated. PANCREAS: No significant abnormality is seen. SPLEEN: No significant abnormality is seen. ADRENALS: There may be underlying adrenal hyperplasia. KIDNEYS: Right kidney shows a focal cortical defect laterally, there is a spherical calcification pre sent at this level with some low-attenuation and some associated fat density, local inflammatory hurd ge within the surrounding renal fat. REPRODUCTIVE ORGANS: Enlarged, there is associated calcification BOWEL: Large amount of retained fecal debris present within the colon. No evident appendicitis. FREE AIR: No Free Air visible. ASCITES: Minimal free fluid present within the pelvis. PELVIC ADENOPATHY: None visualized. RETROPERITONEAL ADENOPATHY: No Retroperitoneal Adenopathy visible. URINARY BLADDER: Possible diverticulum anterolaterally on the right and also laterally on the left a s well as posteriorly on the left suggesting Hutch diverticula, suspect a trabeculated morphology. Th e urinary bladder, there is wall thickening. OSSEOUS STRUCTURES: No significant abnormality is seen. IMPRESSION: RIGHT INGUINAL HERNIA WITH POSSIBLE INFLAMMATORY CHANGES. CORRELATE FOR CHRONIC BLADDER OUTLET OBSTRU CTION, CYSTITIS. CORRELATE FOR FECAL STASIS. Indeterminate abnormality associated with the right kidn ey, correlate for any prior surgical history at this level. Postop changes, coronary artery disease a nd additional findings above
[2021-11-16 12:25] LABS: Amorphous Sediment,Urine Rare /hpf; Appearance,Urine Clear (Clear); Bacteria,Urine Occasional /hpf; Bilirubin,Urine Negative (Negative); Blood,Urine Negative (Negative); Color,Urine Yellow; Glucose,Urine (UA) Negative (Negative); Ketones,Urine Negative (Negative); Leukocyte Esterase,Urine Large (Negative); Mucus,Urine Rare /hpf; Nitrite,Urine Negative (Negative); PH, Urine 7.5 (5.0-8.0); Protein,Urine Trace (Negative); RBC,Urine 1 /hpf (0-5); Specific Gravity,Urine 1.029 (1.001-1.035); Squamous Epithelial Cell,Urine 1 /hpf (0-4); WBC,Urine 51 /hpf (0-5)
[2021-11-16] MEDS ORDERED: MORPHINE SULFATE 4 MG/ML SYRINGE IVP STA (13:08)
--- NOTE | 2021-11-16 14:03 | P.GSCN ---
History of Present Illness Consult date: 11/16/21 Reason for Consult: Acute right groin pain History of present illness: Patient is a 65-year-old gentleman who presents to [facility] emergency department 11/16/2021 with chief complaint of an abrupt onset of severe right groin pain that awoke him from sleep around 4:00 in the morning. He hasn't had similar episodes of pain, discomfort as been persistent into today. Denies associated fever, chills, nausea, vomiting. He believes he might of had a heart attack within the past 6 months, recalls an angiogram was performed, he may have had stent placed. Medical record suggests that he has been on Plavix, patient can't confirm that he is taking Plavix currently. No previous history of inguinal hernia repair. He admits to chronic symptoms of constipation for which she takes [id number] stool softeners, no recent change in that respect. It's unclear as to whether he's undergone colonoscopy in the recent past. He does have a history of schizophrenia, some issues with long-term memory. Laboratory studies obtained in the emergency department where unimpressive with the exception of urinalysis positive for UTI. A computed tomography scan of the abdomen and pelvis was obtained showing a fat-containing right inguinal hernia with some mild inflammatory changes, trabecular changes of the bladder and bladder thickening. The ER staff noted writing or hernia on exam which they were not able to reduce and as such general surgery has been consulted. Review of Systems All systems: negative Past Medical History Past Medical History: Hypertension Additional Past Medical History / Comment(s): renal CA with surgery History of Any Multi-Drug Resistant Organisms: Unobtainable Past Surgical History: Heart Catheterization With Stent, Orthopedic Surgery Additional Past Surgical History / Comment(s): cryoablation for renal CA, Heart Catheterization 04/23/2021, Past Psychological History: Schizophrenia Smoking Status: Never smoker Past Alcohol Use History: None Reported Past Drug Use History: None Reported Medications and Allergies Home Medications Medication Instructions Recorded Confirmed Type Acetaminophen Tab [Tylenol] 1,000 mg PO Q8H PRN 12/09/20 07/28/21 History Omeprazole 40 mg PO AC-BID 12/09/20 07/28/21 History Sennosides/Docusate Sodium [Senna 2 tab PO DAILY PRN 12/09/20 07/28/21 History Plus 8.6-50 mg Tablet] Melatonin 5 mg PO HS PRN 30 Days tab 12/13/20 07/28/21 Rx cloZAPine [Clozaril] 200 mg PO DAILY@1600 30 Days tab 12/13/20 07/28/21 Rx Cyclobenzaprine [Flexeril] 5 mg PO HS PRN 04/27/21 07/28/21 History Sertraline [Zoloft] 50 mg PO DAILY 04/27/21 07/28/21 History Tamsulosin HCl [Flomax] 0.4 mg PO DAILY 04/27/21 07/28/21 History Atorvastatin [Lipitor] 80 mg PO HS 30 Days #30 tab 04/30/21 07/28/21 Rx Clopidogrel [Plavix] 75 mg PO DAILY 30 Days #30 tab 05/01/21 07/28/21 Rx cloZAPine [Clozaril] 100 mg PO DAILY@0900 05/04/21 07/28/21 History clonazePAM [KlonoPIN] 1 mg PO BID #6 tab 05/08/21 07/28/21 Rx Aspirin 81 mg PO DAILY@1700 07/28/21 07/28/21 History Docusate [Colace] 100 mg PO BID 07/28/21 07/28/21 History Losartan [Cozaar] 25 mg PO HS 07/28/21 07/28/21 History Methyl Salicylate/Menth/Camph 1 applic TOPICAL QID PRN 07/28/21 07/28/21 History [Bengay Ultra Strength Cream] Metoprolol Tartrate [Lopressor] 25 mg PO DAILY 07/28/21 07/28/21 History cloZAPine [Clozaril] 400 mg PO HS 07/28/21 07/28/21 History Allergies Allergy/AdvReac Type Severity Reaction Status Date / Time No Known Allergies Allergy Verified 11/16/21 08:46 Surgical - Exam Osteopathic Statement: *. No significant issues noted on an osteopathic structural exam other than those noted in the History and Physical/Consult. Vital Signs Temp Pulse Resp BP Pulse Ox 97.2 F L 75 16 88/64 98 11/16/21 08:46 11/16/21 08:46 11/16/21 08:46 11/16/21 08:46 11/16/21 08:46 - General well developed, well nourished, no distress - Eyes PERRL, normal ocular movement - ENT normal pinna, normal nares - Respiratory normal expansion, normal respiratory effort, clear to auscultation - Cardiovascular Rhythm: regular - Abdomen Abdomen: soft, tender Hernia: inguinal, reducible - Genitourinary normal penis with no external lesions - Integumentary no rash - Neurologic normal coordination, normal sensation - Psychiatric oriented to time, oriented to person, oriented to place, speech is normal Results - Labs 11/16/21 09:46 11/16/21 09:46 Abnormal Lab Results - Last 24 Hours (Table) 11/16/21 11/16/21 11/16/21 Range/Units 09:46 09:46 12:03 RDW 15.7 H (11.5-15.5) % Neutrophils # 7.8 H (1.3-7.7) k/uL Sodium 132 L (137-145) mmol/L Urine Protein Trace H (Negative) Ur Leukocyte Esterase Large H (Negative) Urine WBC 51 H (0-5) /hpf Amorphous Sediment Rare H (None) /hpf Urine Bacteria Occasional H (None) /hpf Urine Mucus Rare H (None) /hpf Diabetes panel 11/16/21 Range/Units 09:46 Sodium 132 L (137-145) mmol/L Potassium 4.6 (3.5-5.1) mmol/L Chloride 99 (98-107) mmol/L Carbon Dioxide 26 (22-30) mmol/L BUN 9 (9-20) mg/dL Creatinine 0.94 (0.66-1.25) mg/dL Glucose 99 (74-99) mg/dL Calcium 8.8 (8.4-10.2) mg/dL AST 21 (17-59) U/L ALT 14 (4-49) U/L Alkaline Phosphatase 75 (38-126) U/L Total Protein 6.5 (6.3-8.2) g/dL Albumin 4.2 (3.5-5.0) g/dL Calcium panel 11/16/21 Range/Units 09:46 Calcium 8.8 (8.4-10.2) mg/dL Albumin 4.2 (3.5-5.0) g/dL Pituitary panel 11/16/21 Range/Units 09:46 Sodium 132 L (137-145) mmol/L Potassium 4.6 (3.5-5.1) mmol/L Chloride 99 (98-107) mmol/L Carbon Dioxide 26 (22-30) mmol/L BUN 9 (9-20) mg/dL Creatinine 0.94 (0.66-1.25) mg/dL Glucose 99 (74-99) mg/dL Calcium 8.8 (8.4-10.2) mg/dL Adrenal panel 11/16/21 Range/Units 09:46 Sodium 132 L (137-145) mmol/L Potassium 4.6 (3.5-5.1) mmol/L Chloride 99 (98-107) mmol/L Carbon Dioxide 26 (22-30) mmol/L BUN 9 (9-20) mg/dL Creatinine 0.94 (0.66-1.25) mg/dL Glucose 99 (74-99) mg/dL Calcium 8.8 (8.4-10.2) mg/dL Total Bilirubin 0.7 (0.2-1.3) mg/dL AST 21 (17-59) U/L ALT 14 (4-49) U/L Alkaline Phosphatase 75 (38-126) U/L Total Protein 6.5 (6.3-8.2) g/dL Albumin 4.2 (3.5-5.0) g/dL - Imaging CT scan - abdomen: report reviewed Assessment and Plan Assessment: 65-year-old gentleman with presenting a right inguinal hernia, would appear to be new onset. No previous running low hernia repair in the past. Question of a heart attack within the past 6 months, medical record suggests the patient's currently on Plavix, may have undergone angiography and stenting around that time. History of schizophrenia. Presenting urinary tract infection and trabecular bladder changes on CT, likely issues with incomplete voiding. Chronic constipation, unclear as to whether up-to-date with respect to screening colonoscopy. Follows with the [place] health system. Plan: Patient was placed in steep Trendelenburg and the patient's right inguinal hernia was reduced with taxis maneuver without too much difficulty. There is no testicular mass, no evidence of left inguinal hernia on exam. No reported visceral involvement on CT scan abdomen and pelvis obtained today. At this point he may follow with the surgeon of his choosing for an elective outpatient right inguinal hernia repair. His cardiac status should be further clarified prior to moving forward with surgery. From a surgical standpoint his Plavix should be held 5 days preoperatively if possible, the feasibility of such will depend on his proximity to angiography and stenting. Recommend treatment of UTI with an antibiotic course on discharge from the ER. Advised him to avoid any strenuous activity or lifting over 10 pounds and continue with stool softeners to prevent constipation. Time with Patient: Greater than 30
== END 2021-11-16 15:04 | disposition home or self-care (01) ==
LOC: EC 08:43
DX: K40.90 Unilateral inguinal hernia, without obstruction or gangrene, not specified as recurrent (principal); N39.0 Urinary tract infection, site not specified; I10 Essential (primary) hypertension; F20.9 Schizophrenia, unspecified; Z79.82 Long term (current) use of aspirin; Z79.899 Other long term (current) drug therapy
CPT/HCPCS: 99284; 96374; 96375; 96361; 36415; 80053; 82150; 83605; 83690; 85025; 81001; 87086; 74018; 74177; J2270; J1885; Q9967

== ENCOUNTER 2021-11-19 21:32 | Emergency (ER) | payer OTHER, MEDICARE ==
[2021-11-19 23:00] VITALS: TEMP 97.6
[2021-11-20 04:10] VITALS: RESP 18
--- NOTE | 2021-11-20 05:10 | ED ---
General Adult HPI - General Chief complaint: Urogenital Stated complaint: Groin Pain Time Seen by Provider: 11/20/21 02:48 Source: patient Mode of arrival: EMS Limitations: no limitations - History of Present Illness Initial comments: González is a 65-year-old male who presents the ER today for right-sided groin pain. Patient has a known history of a hernia he is to follow with surgeon at the [facility] in [place] in the near future however reports that the pain has become unbearable so today he came to the hospital for evaluation. Patient reports tonight the hernia is not reducible and is painful. - Related Data Home Medications Medication Instructions Recorded Confirmed Acetaminophen Tab [Tylenol] 1,000 mg PO Q8H PRN 12/09/20 07/28/21 Omeprazole 40 mg PO AC-BID 12/09/20 07/28/21 Sennosides/Docusate Sodium [Senna 2 tab PO DAILY PRN 12/09/20 07/28/21 Plus 8.6-50 mg Tablet] Cyclobenzaprine [Flexeril] 5 mg PO HS PRN 04/27/21 07/28/21 Sertraline [Zoloft] 50 mg PO DAILY 04/27/21 07/28/21 Tamsulosin HCl [Flomax] 0.4 mg PO DAILY 04/27/21 07/28/21 cloZAPine [Clozaril] 100 mg PO DAILY@0900 05/04/21 07/28/21 Aspirin 81 mg PO DAILY@1700 07/28/21 07/28/21 Docusate [Colace] 100 mg PO BID 07/28/21 07/28/21 Losartan [Cozaar] 25 mg PO HS 07/28/21 07/28/21 Methyl Salicylate/Menth/Camph 1 applic TOPICAL QID PRN 07/28/21 07/28/21 [Bengay Ultra Strength Cream] Metoprolol Tartrate [Lopressor] 25 mg PO DAILY 07/28/21 07/28/21 cloZAPine [Clozaril] 400 mg PO HS 07/28/21 07/28/21 Previous Rx's Medication Instructions Recorded Melatonin 5 mg PO HS PRN 30 Days tab 12/13/20 cloZAPine [Clozaril] 200 mg PO DAILY@1600 30 Days tab 12/13/20 Atorvastatin [Lipitor] 80 mg PO HS 30 Days #30 tab 04/30/21 Clopidogrel [Plavix] 75 mg PO DAILY 30 Days #30 tab 05/01/21 clonazePAM [KlonoPIN] 1 mg PO BID #6 tab 05/08/21 Sulfamethox-Tmp 800-160Mg [Bactrim 1 tab PO Q12HR 7 Days #14 tab 11/16/21 DS 800-160 mg] Allergies Allergy/AdvReac Type Severity Reaction Status Date / Time No Known Allergies Allergy Verified 11/19/21 23:01 Review of Systems ROS Statement: Those systems with pertinent positive or pertinent negative responses have been documented in the HPI. ROS Other: All systems not noted in ROS Statement are negative. Past Medical History Past Medical History: Hypertension Additional Past Medical History / Comment(s): renal CA with surgery History of Any Multi-Drug Resistant Organisms: Unobtainable Past Surgical History: Heart Catheterization With Stent, Orthopedic Surgery Additional Past Surgical History / Comment(s): cryoablation for renal CA, Heart Catheterization 04/23/2021, Past Psychological History: Schizophrenia Smoking Status: Never smoker Past Alcohol Use History: None Reported Past Drug Use History: None Reported General Exam - General Exam Comments Initial Comments: Physical Exam GENERAL: Patient is well-developed and well-nourished. Patient is nontoxic and well-hydrated and is in no distress. HENT: Normocephalic, Atraumatic. EYES: PERRL, EOMI PULMONARY: Unlabored respirations. CARDIOVASCULAR: RRR Warm and well perfused extremities ABDOMEN: Right inguinal hernia, not reducible on initial evaluation, mild redness of the overlying skin SKIN: No rashes or bruising : Deferred NEUROLOGIC: Alert and oriented Normal speech Normal gait MUSCULOSKELETAL: Moving all extremities with no apparent injury PSYCHIATRIC: No SI/HI Limitations: no limitations Course Vital Signs 11/19/21 11/20/21 11/20/21 22:53 04:09 05:00 Temperature 97.6 F Pulse Rate 78 79 82 Respiratory 16 18 18 Rate Blood Pressure 135/81 139/80 151/95 O2 Sat by Pulse 99 99 99 Oximetry 11/20/21 06:05 Temperature Pulse Rate 87 Respiratory 18 Rate Blood Pressure 145/91 O2 Sat by Pulse Oximetry Medical Decision Making - Medical Decision Making Patient was seen and evaluated history is obtained from the patient, patient has a long-standing right-sided inguinal hernia he [facility]. Patient reports that tonight the hernia popped out and he hasn't been able to reduce it. On initial exam the hernia was impossible to reduce due to the patient's pain, he is treated with IV pain medications and an icepack upon reevaluation we were able to easily reduce the hernia with direct pressure. Patient had some relief in his discomfort was comfortable with plan for discharge home supportive care and follow-up with his surgeon Thursday as planned. - Lab Data Result diagrams: 11/20/21 05:36 Lab Results 11/20/21 Range/Units 05:36 WBC 8.0 (3.8-10.6) k/uL RBC 4.34 (4.30-5.90) m/uL Hgb 12.5 L (13.0-17.5) gm/dL Hct 38.5 L (39.0-53.0) % MCV 88.7 (80.0-100.0) fL MCH 28.9 (25.0-35.0) pg MCHC 32.6 (31.0-37.0) g/dL RDW 15.3 (11.5-15.5) % Plt Count 224 (150-450) k/uL MPV 7.8 Neutrophils % 71 % Lymphocytes % 16 % Monocytes % 6 % Eosinophils % 3 % Basophils % 1 % Neutrophils # 5.7 (1.3-7.7) k/uL Lymphocytes # 1.3 (1.0-4.8) k/uL Monocytes # 0.5 (0-1.0) k/uL Eosinophils # 0.3 (0-0.7) k/uL Basophils # 0.1 (0-0.2) k/uL Disposition Clinical Impression: Right inguinal hernia Disposition: HOME SELF-CARE Additional Instructions: Try to stay off your feet until surgery on thursday, if you notice the hernia pops out, lay flat, apply an ice pack and try to push it back in. if you cannot push it in and it is painful, come back to the ER. Is patient prescribed a controlled substance at d/c from ED?: No Referrals: [facility],Clinic [Primary Care Provider] - 1-2 days
[2021-11-20] MEDS ORDERED: HYDROmorphone 0.5 MG/0.5 ML SYRINGE IVP STA (05:15)
[2021-11-20] MEDS ORDERED: SODIUM CHLORIDE 0.9% 1,000 ML IV ONE (05:15)
[2021-11-20 06:08] VITALS: BP 145/91; PULSE 87
[2021-11-20 06:08] LABS: Basophils # (A) 0.1 k/uL (0-0.2); Basophils % (A) 1 %; Eosinophils # (A) 0.3 k/uL (0-0.7); Eosinophils % (A) 3 %; HCT 38.5 % (39.0-53.0); HGB 12.5 gm/dL (13.0-17.5); Lymphocytes # (A) 1.3 k/uL (1.0-4.8); Lymphocytes % (A) 16 %; MCH 28.9 pg (25.0-35.0); MCHC 32.6 g/dL (31.0-37.0); MCV 88.7 fL (80.0-100.0); Mean Platelet Volume 7.8; Monocytes # (A) 0.5 k/uL (0-1.0); Monocytes % (A) 6 %; Neutrophils # (A) 5.7 k/uL (1.3-7.7); Neutrophils % (A) 71 %; Platelet Count 224 k/uL (150-450); RBC 4.34 m/uL (4.30-5.90); RDW 15.3 % (11.5-15.5)
[2021-11-20 06:40] LABS: ALT 15 U/L (4-49); AST 26 U/L (17-59); African American GFR (CKD) >90 (>60 ml/min/1.73 sqM); Alkaline Phosphatase 78 U/L (38-126); Anion Gap 10 mmol/L; Blood Urea Nitrogen 13 mg/dL (9-20); Calcium 8.5 mg/dL (8.4-10.2); Carbon Dioxide 21 mmol/L (22-30); Chloride 98 mmol/L (98-107); Glucose 96 mg/dL (74-99); Non-African American GFR(CKD) 78 (>60 ml/min/1.73 sqM); Potassium 4.1 mmol/L (3.5-5.1); Sodium 129 mmol/L (137-145); Total Bilirubin 0.9 mg/dL (0.2-1.3); Total Protein 6.5 g/dL (6.3-8.2)
== END 2021-11-20 07:50 | disposition home or self-care (01) ==
LOC: EC 21:32
DX: K40.90 Unilateral inguinal hernia, without obstruction or gangrene, not specified as recurrent (principal); I10 Essential (primary) hypertension; F20.9 Schizophrenia, unspecified; Z79.02 Long term (current) use of antithrombotics/antiplatelets; Z79.82 Long term (current) use of aspirin; Z79.899 Other long term (current) drug therapy
CPT/HCPCS: 96374 ×3; 96361 ×3; 99284 ×2; 36415; 80053; 83605; 85025; J1170

== ENCOUNTER 2021-12-31 10:07 | Emergency (ER) | payer OTHER, MEDICARE ==
[2021-12-31 10:15] VITALS: TEMP 97.6
[2021-12-31 11:03] VITALS: PULSE 77
[2021-12-31] MEDS ORDERED: SODIUM CHLORIDE 0.9% 1,000 ML IV ONE (11:08)
--- NOTE | 2021-12-31 11:17 | ED ---
Fall HPI - General Chief Complaint: Fall Stated Complaint: Fall Time Seen by Provider: 12/31/21 10:33 Source: patient, EMS, RN notes reviewed Mode of arrival: EMS Limitations: no limitations - History of Present Illness Initial Comments: This a 66-year-old male presents emergency Department with chief complaint of trip and fall. Patient is currently being worked up for probable Parkinson's disease. Patient has shuffling gait, states that he gets moving very quickly and states he ended up falling was shopping cart this happened several times per sister in the room. Patient denies any head injury no loss conscious. Patient complains of bilateral knee abrasions tetanus up-to-date. Patient denies any chest pain or shortness of breath. Patient was brought in secondary to blood pressure which was lower but states he has no chest pain states he usually is in the lower end. - Related Data Home Medications Medication Instructions Recorded Confirmed Acetaminophen Tab [Tylenol] 1,000 mg PO Q8H PRN 12/09/20 07/28/21 Omeprazole 40 mg PO AC-BID 12/09/20 07/28/21 Sennosides/Docusate Sodium [Senna 2 tab PO DAILY PRN 12/09/20 07/28/21 Plus 8.6-50 mg Tablet] Cyclobenzaprine [Flexeril] 5 mg PO HS PRN 04/27/21 07/28/21 Sertraline [Zoloft] 50 mg PO DAILY 04/27/21 07/28/21 Tamsulosin HCl [Flomax] 0.4 mg PO DAILY 04/27/21 07/28/21 cloZAPine [Clozaril] 100 mg PO DAILY@0900 05/04/21 07/28/21 Aspirin 81 mg PO DAILY@1700 07/28/21 07/28/21 Docusate [Colace] 100 mg PO BID 07/28/21 07/28/21 Losartan [Cozaar] 25 mg PO HS 07/28/21 07/28/21 Methyl Salicylate/Menth/Camph 1 applic TOPICAL QID PRN 07/28/21 07/28/21 [Bengay Ultra Strength Cream] Metoprolol Tartrate [Lopressor] 25 mg PO DAILY 07/28/21 07/28/21 cloZAPine [Clozaril] 400 mg PO HS 07/28/21 07/28/21 Previous Rx's Medication Instructions Recorded Melatonin 5 mg PO HS PRN 30 Days tab 12/13/20 cloZAPine [Clozaril] 200 mg PO DAILY@1600 30 Days tab 12/13/20 Atorvastatin [Lipitor] 80 mg PO HS 30 Days #30 tab 04/30/21 Clopidogrel [Plavix] 75 mg PO DAILY 30 Days #30 tab 05/01/21 clonazePAM [KlonoPIN] 1 mg PO BID #6 tab 05/08/21 Sulfamethox-Tmp 800-160Mg [Bactrim 1 tab PO Q12HR 7 Days #14 tab 11/16/21 DS 800-160 mg] Allergies Allergy/AdvReac Type Severity Reaction Status Date / Time No Known Allergies Allergy Verified 11/19/21 23:01 Review of Systems ROS Statement: Those systems with pertinent positive or pertinent negative responses have been documented in the HPI. ROS Other: All systems not noted in ROS Statement are negative. Past Medical History Past Medical History: Hypertension Additional Past Medical History / Comment(s): renal CA with surgery History of Any Multi-Drug Resistant Organisms: Unobtainable Past Surgical History: Heart Catheterization With Stent, Orthopedic Surgery Additional Past Surgical History / Comment(s): cryoablation for renal CA, Heart Catheterization 04/23/2021, Past Psychological History: Schizophrenia Smoking Status: Never smoker Past Alcohol Use History: None Reported Past Drug Use History: None Reported General Exam Limitations: no limitations General appearance: alert, in no apparent distress Head exam: Present: atraumatic, normocephalic, normal inspection Eye exam: Present: normal appearance, PERRL, EOMI. Absent: scleral icterus, conjunctival injection, periorbital swelling ENT exam: Present: normal exam, normal oropharynx, mucous membranes moist Neck exam: Present: normal inspection, full ROM. Absent: tenderness, meningismus, lymphadenopathy Respiratory exam: Present: normal lung sounds bilaterally. Absent: respiratory distress, wheezes, rales, rhonchi, stridor Cardiovascular Exam: Present: regular rate, normal rhythm, normal heart sounds. Absent: systolic murmur, diastolic murmur, rubs, gallop, clicks Extremities exam: Present: other (Bilateral knee abrasion noted, full range of motion neurovascular intact) Neurological exam: Present: alert, oriented X3, CN II-XII intact, reflexes normal. Absent: motor sensory deficit Skin exam: Present: warm, dry, intact, normal color. Absent: rash Course Vital Signs 12/31/21 12/31/21 12/31/21 10:09 11:03 12:00 Temperature 97.6 F Pulse Rate 72 77 Respiratory 18 16 16 Rate Blood Pressure 83/48 96/63 126/71 O2 Sat by Pulse 94 L 95 Oximetry Medical Decision Making - Medical Decision Making Patient presented to the ER for trip and fall. Patient did have some mildly low blood pressure though is improved. Patient has no significant lab findings she is asymptomatic will be discharged stable condition return parameters were discussed. - Lab Data Result diagrams: 12/31/21 11:19 12/31/21 11:19 Lab Results 12/31/21 12/31/21 Range/Units 11:19 11:19 WBC 6.4 (3.8-10.6) k/uL RBC 4.16 L (4.30-5.90) m/uL Hgb 11.6 L (13.0-17.5) gm/dL Hct 36.8 L (39.0-53.0) % MCV 88.4 (80.0-100.0) fL MCH 27.8 (25.0-35.0) pg MCHC 31.4 (31.0-37.0) g/dL RDW 15.2 (11.5-15.5) % Plt Count 244 (150-450) k/uL MPV 7.7 Neutrophils % 85 % Lymphocytes % 9 % Monocytes % 5 % Eosinophils % 1 % Basophils % 1 % Neutrophils # 5.4 (1.3-7.7) k/uL Lymphocytes # 0.5 L (1.0-4.8) k/uL Monocytes # 0.3 (0-1.0) k/uL Eosinophils # 0.0 (0-0.7) k/uL Basophils # 0.0 (0-0.2) k/uL Sodium 132 L (137-145) mmol/L Potassium 4.4 (3.5-5.1) mmol/L Chloride 99 (98-107) mmol/L Carbon Dioxide 21 L (22-30) mmol/L Anion Gap 12 mmol/L BUN 8 L (9-20) mg/dL Creatinine 1.16 (0.66-1.25) mg/dL Est GFR (CKD-EPI)AfAm 76 (>60 ml/min/1.73 sqM) Est GFR (CKD-EPI)NonAf 65 (>60 ml/min/1.73 sqM) Glucose 122 H (74-99) mg/dL Calcium 8.4 (8.4-10.2) mg/dL Total Bilirubin 0.5 (0.2-1.3) mg/dL AST 21 (17-59) U/L ALT 15 (4-49) U/L Alkaline Phosphatase 57 (38-126) U/L Total Protein 5.7 L (6.3-8.2) g/dL Albumin 3.8 (3.5-5.0) g/dL Disposition Clinical Impression: Fall, Abrasion of knee, bilateral Disposition: HOME SELF-CARE Condition: Stable Instructions (If sedation given, give patient instructions): Abrasion (ED) Additional Instructions: Please return to the Emergency Department if symptoms worsen or any other concerns. Is patient prescribed a controlled substance at d/c from ED?: No Referrals: [facility],Clinic [Primary Care Provider] - 1-2 days Time of Disposition: 12:32
[2021-12-31 11:38] LABS: Basophils % (A) 1 %; Eosinophils % (A) 1 %; HCT 36.8 % (39.0-53.0); HGB 11.6 gm/dL (13.0-17.5); Lymphocytes # (A) 0.5 k/uL (1.0-4.8); Lymphocytes % (A) 9 %; MCH 27.8 pg (25.0-35.0); MCHC 31.4 g/dL (31.0-37.0); MCV 88.4 fL (80.0-100.0); Mean Platelet Volume 7.7; Monocytes # (A) 0.3 k/uL (0-1.0); Monocytes % (A) 5 %; Neutrophils # (A) 5.4 k/uL (1.3-7.7); Neutrophils % (A) 85 %; Platelet Count 244 k/uL (150-450); RBC 4.16 m/uL (4.30-5.90); RDW 15.2 % (11.5-15.5); WBC 6.4 k/uL (3.8-10.6)
[2021-12-31 11:59] LABS: Albumin 3.8 g/dL (3.5-5.0); Calcium 8.4 mg/dL (8.4-10.2); Potassium 4.4 mmol/L (3.5-5.1); Total Bilirubin 0.5 mg/dL (0.2-1.3); Total Protein 5.7 g/dL (6.3-8.2)
[2021-12-31 13:14] VITALS: BP 134/74; RESP 18
== END 2021-12-31 13:14 | disposition home or self-care (01) ==
LOC: EC 10:07
DX: S80.211A Abrasion, right knee, initial encounter (principal); S80.212A Abrasion, left knee, initial encounter; I10 Essential (primary) hypertension; F20.9 Schizophrenia, unspecified; Z79.02 Long term (current) use of antithrombotics/antiplatelets; Z79.82 Long term (current) use of aspirin; Z79.899 Other long term (current) drug therapy; W01.0XXA Fall on same level from slipping, tripping and stumbling without subsequent striking against object, initial encounter
CPT/HCPCS: 36415; 80053; 85025; 96360; 99284

== ENCOUNTER 2022-02-03 17:09 | Inpatient (IN) | payer OTHER, MEDICARE ==
--- NOTE | 2022-02-03 19:57 | ED ---
General Adult HPI - General Chief complaint: Dizziness Stated complaint: Fall/Head injury/blood thinners Time Seen by Provider: 02/03/22 19:40 Source: patient, RN notes reviewed, old records reviewed Mode of arrival: wheelchair Limitations: no limitations - History of Present Illness Initial comments: 66-year-old male patient presents to the emergency room via wheelchair with his sister complaining of falling today at [facility] after a dizzy spell. Patient is on blood thinners for cardiac disease states did not hit his head or lose consciousness when he fell. He does have a history of Parkinson's and has been falling frequently due to mobility issues. Sister states that he has a broken foot from a fall on January 26. He is scheduled to see an orthopedic doctor this week. He was scheduled to have a inguinal hernia repair which was delayed by his graphics edit technician until after April. She states his hernia is reducible and he did reduce it himself prior to arrival. She says his falls have been ongoing for several months and she thinks may be related to his medication. -: hour(s) (7) Location: abdomen Radiation: non-radiation - Related Data Home Medications Medication Instructions Recorded Confirmed Acetaminophen Tab [Tylenol] 1,000 mg PO Q8H PRN MDD 6 TABS 12/09/20 02/03/22 Omeprazole 40 mg PO DAILY 12/09/20 02/03/22 Sertraline [Zoloft] 50 mg PO DAILY 04/27/21 02/03/22 Tamsulosin HCl [Flomax] 0.8 mg PO DAILY 04/27/21 02/03/22 Aspirin 81 mg PO DAILY 07/28/21 02/03/22 Losartan [Cozaar] 25 mg PO HS 07/28/21 02/03/22 Metoprolol Tartrate [Lopressor] 25 mg PO BID 07/28/21 02/03/22 Solifenacin Succinate [Vesicare] 10 mg PO DAILY 12/31/21 02/03/22 Sennosides-Docusate Sodium 2 tab PO DAILY PRN 02/03/22 02/03/22 [Senokot-S] cloZAPine [Clozaril] 200 mg PO BID@0800,1200 02/03/22 02/03/22 cloZAPine [Clozaril] 400 mg PO HS 02/03/22 02/03/22 Previous Rx's Medication Instructions Recorded Atorvastatin [Lipitor] 80 mg PO HS 30 Days #30 tab 04/30/21 Clopidogrel [Plavix] 75 mg PO DAILY 30 Days #30 tab 05/01/21 clonazePAM [KlonoPIN] 1 mg PO BID #6 tab 05/08/21 Allergies Allergy/AdvReac Type Severity Reaction Status Date / Time No Known Allergies Allergy Verified 02/03/22 20:21 Review of Systems ROS Statement: Those systems with pertinent positive or pertinent negative responses have been documented in the HPI. ROS Other: All systems not noted in ROS Statement are negative. Past Medical History Past Medical History: Hypertension Additional Past Medical History / Comment(s): renal CA with surgery History of Any Multi-Drug Resistant Organisms: Unobtainable Past Surgical History: Heart Catheterization With Stent, Orthopedic Surgery Additional Past Surgical History / Comment(s): cryoablation for renal CA, Heart Catheterization 04/23/2021, Past Psychological History: Schizophrenia Smoking Status: Never smoker Past Alcohol Use History: None Reported Past Drug Use History: None Reported General Exam Limitations: no limitations General appearance: alert, in no apparent distress Head exam: Present: atraumatic, normal inspection Eye exam: Present: normal appearance, EOMI. Absent: scleral icterus, conjunctival injection, periorbital swelling, periorbital tenderness ENT exam: Present: mucous membranes moist Neck exam: Present: normal inspection. Absent: tenderness, meningismus Respiratory exam: Present: normal lung sounds bilaterally. Absent: respiratory distress, accessory muscle use Cardiovascular Exam: Present: regular rate GI/Abdominal exam: Present: soft, hernia (Right inguinal reducible). Absent: tenderness, rigid Extremities exam: Present: normal capillary refill Right Ankle exam: Present: tenderness, swelling, ecchymosis (Diagnosed foot fracture, in posterior short leg splint) Foot/Toe exam: Present: ecchymosis Neurovascular tendon exam: Present: no vascular compromise. Absent: abnormal cap refill, extremity cold to touch, pallor, foot drop Gait: observed and limited by pain (right foot swelling, splint) Back exam: Absent: tenderness Neurological exam: Present: alert, oriented X3 Psychiatric exam: Present: normal affect, normal mood Skin exam: Present: warm, dry, normal color. Absent: cyanosis, diaphoretic Course Vital Signs 02/03/22 02/03/22 02/03/22 17:16 22:00 23:00 Temperature 97.4 F L Pulse Rate 78 71 59 L Respiratory 18 20 18 Rate Blood Pressure 144/85 158/103 154/96 O2 Sat by Pulse 97 98 99 Oximetry EKG Findings - EKG Results: EKG: sinus rhythm (Ventricular rate 80, MA interval 0.165, QRS 0.96, QTC 0.429) Medical Decision Making - Medical Decision Making Patient presents with multiple complaints including dizziness with frequent falls due to Parkinson's, right inguinal hernia that is reducible, right foot fracture which he is scheduled to see orthopedics this week. CT C-spine was performed due to his fall on plavix, shows no intracranial process. No evidence of cervical spine fracture. There is moderate multilevel degenerative disc disease. Lung apices are clear. Hematocrit are stable there is no evidence of leukocytosis. Patient's hyponatremia 123, chloride 90. Sister states that the patient does drink an excessive amount of water throughout the day. Patient was given a liter of normal saline. On physical exam patient does have a reducible right inguinal hernia. No pain after reduction. There is bruising to the right foot which is in a posterior short leg splint for a foot fracture sustained on January 26. Repeat x-rays were performed showing acute displaced comminuted oblique distal fifth metatarsal fracture. Patient is agreeable to admission for hyponatremia. Case discussed with Dr. Magallon - Lab Data Result diagrams: 02/03/22 20:39 02/03/22 20:39 Lab Results 02/03/22 02/03/22 02/03/22 Range/Units 20:39 20:39 20:39 WBC 8.3 (3.8-10.6) k/uL RBC 4.05 L (4.30-5.90) m/uL Hgb 11.7 L (13.0-17.5) gm/dL Hct 35.3 L (39.0-53.0) % MCV 87.2 (80.0-100.0) fL MCH 28.9 (25.0-35.0) pg MCHC 33.2 (31.0-37.0) g/dL RDW 14.9 (11.5-15.5) % Plt Count 240 (150-450) k/uL MPV 7.5 Neutrophils % 85 % Lymphocytes % 9 % Monocytes % 4 % Eosinophils % 1 % Basophils % 0 % Neutrophils # 7.0 (1.3-7.7) k/uL Lymphocytes # 0.7 L (1.0-4.8) k/uL Monocytes # 0.3 (0-1.0) k/uL Eosinophils # 0.1 (0-0.7) k/uL Basophils # 0.0 (0-0.2) k/uL PT 11.0 (9.0-12.0) sec INR 1.0 (<1.2) Sodium 123 L (137-145) mmol/L Potassium 3.8 (3.5-5.1) mmol/L Chloride 90 L (98-107) mmol/L Carbon Dioxide 24 (22-30) mmol/L Anion Gap 9 mmol/L BUN 10 (9-20) mg/dL Creatinine 0.82 (0.66-1.25) mg/dL Est GFR (CKD-EPI)AfAm >90 (>60 ml/min/1.73 sqM) Est GFR (CKD-EPI)NonAf >90 (>60 ml/min/1.73 sqM) Glucose 158 H (74-99) mg/dL Osmolality (280-301) mosm/kg Plasma Lactic Acid Rene (0.7-2.0) mmol/L Calcium 8.5 (8.4-10.2) mg/dL Total Bilirubin 0.6 (0.2-1.3) mg/dL AST 21 (17-59) U/L ALT 16 (4-49) U/L Alkaline Phosphatase 79 (38-126) U/L Troponin I (0.000-0.034) ng/mL Total Protein 6.1 L (6.3-8.2) g/dL Albumin 4.1 (3.5-5.0) g/dL Urine Color Urine Appearance (Clear) Urine pH (5.0-8.0) Ur Specific [place] (1.001-1.035) Urine Protein (Negative) Urine Glucose (UA) (Negative) Urine Ketones (Negative) Urine Blood (Negative) Urine Nitrite (Negative) Urine Bilirubin (Negative) Urine Urobilinogen (<2.0) mg/dL Ur Leukocyte Esterase (Negative) Urine RBC (0-5) /hpf Urine WBC (0-5) /hpf Urine Bacteria (None) /hpf Urine Osmolality (50-1400) mosm/kg 02/03/22 02/03/22 02/03/22 Range/Units 20:39 20:39 20:39 WBC (3.8-10.6) k/uL RBC (4.30-5.90) m/uL Hgb (13.0-17.5) gm/dL Hct (39.0-53.0) % MCV (80.0-100.0) fL MCH (25.0-35.0) pg MCHC (31.0-37.0) g/dL RDW (11.5-15.5) % Plt Count (150-450) k/uL MPV Neutrophils % % Lymphocytes % % Monocytes % % Eosinophils % % Basophils % % Neutrophils # (1.3-7.7) k/uL Lymphocytes # (1.0-4.8) k/uL Monocytes # (0-1.0) k/uL Eosinophils # (0-0.7) k/uL Basophils # (0-0.2) k/uL PT (9.0-12.0) sec INR (<1.2) Sodium (137-145) mmol/L Potassium (3.5-5.1) mmol/L Chloride (98-107) mmol/L Carbon Dioxide (22-30) mmol/L Anion Gap mmol/L BUN (9-20) mg/dL Creatinine (0.66-1.25) mg/dL Est GFR (CKD-EPI)AfAm (>60 ml/min/1.73 sqM) Est GFR (CKD-EPI)NonAf (>60 ml/min/1.73 sqM) Glucose (74-99) mg/dL Osmolality 262 L (280-301) mosm/kg Plasma Lactic Acid Rene 1.6 (0.7-2.0) mmol/L Calcium (8.4-10.2) mg/dL Total Bilirubin (0.2-1.3) mg/dL AST (17-59) U/L ALT (4-49) U/L Alkaline Phosphatase (38-126) U/L Troponin I <0.012 (0.000-0.034) ng/mL Total Protein (6.3-8.2) g/dL Albumin (3.5-5.0) g/dL Urine Color Urine Appearance (Clear) Urine pH (5.0-8.0) Ur Specific [place] (1.001-1.035) Urine Protein (Negative) Urine Glucose (UA) (Negative) Urine Ketones (Negative) Urine Blood (Negative) Urine Nitrite (Negative) Urine Bilirubin (Negative) Urine Urobilinogen (<2.0) mg/dL Ur Leukocyte Esterase (Negative) Urine RBC (0-5) /hpf Urine WBC (0-5) /hpf Urine Bacteria (None) /hpf Urine Osmolality (50-1400) mosm/kg 02/03/22 02/03/22 Range/Units 22:00 22:00 WBC (3.8-10.6) k/uL RBC (4.30-5.90) m/uL Hgb (13.0-17.5) gm/dL Hct (39.0-53.0) % MCV (80.0-100.0) fL MCH (25.0-35.0) pg MCHC (31.0-37.0) g/dL RDW (11.5-15.5) % Plt Count (150-450) k/uL MPV Neutrophils % % Lymphocytes % % Monocytes % % Eosinophils % % Basophils % % Neutrophils # (1.3-7.7) k/uL Lymphocytes # (1.0-4.8) k/uL Monocytes # (0-1.0) k/uL Eosinophils # (0-0.7) k/uL Basophils # (0-0.2) k/uL PT (9.0-12.0) sec INR (<1.2) Sodium (137-145) mmol/L Potassium (3.5-5.1) mmol/L Chloride (98-107) mmol/L Carbon Dioxide (22-30) mmol/L Anion Gap mmol/L BUN (9-20) mg/dL Creatinine (0.66-1.25) mg/dL Est GFR (CKD-EPI)AfAm (>60 ml/min/1.73 sqM) Est GFR (CKD-EPI)NonAf (>60 ml/min/1.73 sqM) Glucose (74-99) mg/dL Osmolality (280-301) mosm/kg Plasma Lactic Acid Rene (0.7-2.0) mmol/L Calcium (8.4-10.2) mg/dL Total Bilirubin (0.2-1.3) mg/dL AST (17-59) U/L ALT (4-49) U/L Alkaline Phosphatase (38-126) U/L Troponin I (0.000-0.034) ng/mL Total Protein (6.3-8.2) g/dL Albumin (3.5-5.0) g/dL Urine Color Light Yellow Urine Appearance Clear (Clear) Urine pH 6.5 (5.0-8.0) Ur Specific [place] 1.004 (1.001-1.035) Urine Protein Negative (Negative) Urine Glucose (UA) Negative (Negative) Urine Ketones Negative (Negative) Urine Blood Trace H (Negative) Urine Nitrite Negative (Negative) Urine Bilirubin Negative (Negative) Urine Urobilinogen <2.0 (<2.0) mg/dL Ur Leukocyte Esterase Large H (Negative) Urine RBC 1 (0-5) /hpf Urine WBC 21 H (0-5) /hpf Urine Bacteria Few H (None) /hpf Urine Osmolality 127 (50-1400) mosm/kg Disposition Clinical Impression: Hyponatremia, Reducible right inguinal hernia, Frequent falls Disposition: ADMITTED IP TO THIS [facility] Decision Date: 02/03/22 Decision Time: 21:13
[2022-02-03] MEDS ORDERED: SODIUM CHLORIDE 0.9% 500 ML 500 ML IV STA (19:58)
[2022-02-03 20:48] LABS: Basophils % (A) 0 %; Eosinophils # (A) 0.1 k/uL (0-0.7); Eosinophils % (A) 1 %; HCT 35.3 % (39.0-53.0); HGB 11.7 gm/dL (13.0-17.5); Lymphocytes # (A) 0.7 k/uL (1.0-4.8); Lymphocytes % (A) 9 %; MCH 28.9 pg (25.0-35.0); MCHC 33.2 g/dL (31.0-37.0); MCV 87.2 fL (80.0-100.0); Mean Platelet Volume 7.5; Monocytes # (A) 0.3 k/uL (0-1.0); Monocytes % (A) 4 %; Neutrophils % (A) 85 %; Platelet Count 240 k/uL (150-450); RBC 4.05 m/uL (4.30-5.90); RDW 14.9 % (11.5-15.5); WBC 8.3 k/uL (3.8-10.6)
--- NOTE | 2022-02-03 20:54 | CT ---
EXAMINATION TYPE: CT brain cspine wo con CT DLP: 1401.8 mGycm, Automated exposure control for dose reduction was used. DATE OF EXAM: 02/03/2022 7:50 PM COMPARISON: CT brain 08/14/2019 CLINICAL INDICATION:Male, 66 years old with history of pain; multiple recent falls TECHNIQUE: Brain: Multiple axial CT images of the brain were obtained without IV contrast. Cspine: Axial CT images from the skull base to the inferior aspect of T2 we obtained without intraven ous contrast. Coronal and sagittal reformatted images were also reviewed. FINDINGS: Brain: Extra-axial spaces: No abnormal extra-axial fluid collections. Ventricular system: Dilatation in proportion to cerebral atrophy. Cerebral parenchyma: Cerebral atrophy. No acute intraparenchymal hemorrhage or mass effect. The lechuga -white junction is well differentiated. Cerebellum: Unremarkable. Mass effect: No evidence of midline shift. Intracranial vasculature: Atherosclerotic calcifications of the intracranial vessels. Soft tissues: Normal. Calvarium/osseous structures: No depressed skull fracture. Paranasal sinuses and mastoid air cells: Clear. Visualized orbits: Orbital contents are intact. Cervical spine: Fracture: None. Osseous structures: Multilevel degenerative disc disease changes with endplate spurring and disc oste ophyte complex's. Vertebral alignment: Straightening of the with reversal of the curvature Spinal canal/Neural Foramina: No evidence of significant spinal canal narrowing. Facet joint uncovert ebral joint arthropathy scattered throughout the cervical spine with varying degrees of neural forami nal stenosis. Neck soft tissues: Prevertebral soft tissues are within normal limits. Other: The airway is patent. The lung apices are clear. IMPRESSION: 1. No acute intracranial process. 2. No evidence of cervical spine fracture. 3. Moderate multilevel degenerative disc disease.
[2022-02-03 21:07] LABS: ALT 16 U/L (4-49); AST 21 U/L (17-59); African American GFR (CKD) >90 (>60 ml/min/1.73 sqM); Albumin 4.1 g/dL (3.5-5.0); Alkaline Phosphatase 79 U/L (38-126); Anion Gap 9 mmol/L; Blood Urea Nitrogen 10 mg/dL (9-20); Calcium 8.5 mg/dL (8.4-10.2); Carbon Dioxide 24 mmol/L (22-30); Chloride 90 mmol/L (98-107); Glucose 158 mg/dL (74-99); Non-African American GFR(CKD) >90 (>60 ml/min/1.73 sqM); Potassium 3.8 mmol/L (3.5-5.1); Sodium 123 mmol/L (137-145); Total Bilirubin 0.6 mg/dL (0.2-1.3); Total Protein 6.1 g/dL (6.3-8.2)
[2022-02-03] MEDS ORDERED: SODIUM CHLORIDE 0.9% 500 ML 500 ML IV ONE (21:08)
[2022-02-03] MEDS ORDERED: NALOXONE 0.4 MG/ML 1 ML VIAL IV PRN (21:29)
[2022-02-03] MEDS ORDERED: ACETAMINOPHEN TAB 500 MG TAB PO PRN (21:31)
--- NOTE | 2022-02-03 22:10 | XR ---
EXAMINATION TYPE: XR foot complete RT DATE OF EXAM: 02/03/2022 COMPARISON: NONE HISTORY: Pain TECHNIQUE: 3 view FINDINGS: There is comminuted oblique fracture distal shaft of the fifth metatarsal. There is displac ement up to 9 mm. No dislocation. The toes appear intact. IMPRESSION: Acute displaced comminuted distal fifth metatarsal fracture.
[2022-02-03] MEDS: SODIUM CHLORIDE 0.9% 1,000 ML IV SCH (22:29)
[2022-02-03 22:47] LABS: Appearance,Urine Clear (Clear); Bacteria,Urine Few /hpf; Bilirubin,Urine Negative (Negative); Blood,Urine Trace (Negative); Color,Urine Light Yellow; Glucose,Urine (UA) Negative (Negative); Ketones,Urine Negative (Negative); Leukocyte Esterase,Urine Large (Negative); Nitrite,Urine Negative (Negative); PH, Urine 6.5 (5.0-8.0); Protein,Urine Negative (Negative); RBC,Urine 1 /hpf (0-5); Specific Gravity,Urine 1.004 (1.001-1.035); Urobilinogen,Urine <2.0 mg/dL (<2.0); WBC,Urine 21 /hpf (0-5)
--- NOTE | 2022-02-04 06:02 | P.HPIM ---
History of Present Illness H&P Date: 02/03/22 Chief Complaint: Frequent falling 66-year-old male with history of schizophrenia and, Parkinson disease, hypertension, coronary artery disease Patient comes into the hospital for evaluation after sustaining a fall is been having frequent falls recently due to parkinson disease, today he had a dizzy spell and ended up falling denies any loss of consciousness or head injury patient is not on blood thinner but he is on Plavix and aspirin. Patient had a right foot injury resulted in a fifth metatarsal fracture around january he is scheduled to see orthopedic doctor as an outpatient. Patient denies any heart racing chest pain shortness of breath, fevers chills nausea vomiting abdominal pain changes in bowel or urinary habits. Patient also has inguinal hernia that he is waiting to have it repaired He denies any recent travel or hospitalization denies any upper respiratory infection symptoms. workup int he ED showed, hyponatremia, imaging showed no acute process in the CT brain , foot xray showed right 5th metatarsal displaced fracture Review of Systems Pertinent positives as noted in HPI. All other systems were reviewed and are negative Past Medical History Past Medical History: Hypertension Additional Past Medical History / Comment(s): renal CA with surgery History of Any Multi-Drug Resistant Organisms: Unobtainable Past Surgical History: Heart Catheterization With Stent, Orthopedic Surgery Additional Past Surgical History / Comment(s): cryoablation for renal CA, Heart Catheterization 04/23/2021, Past Psychological History: Schizophrenia Smoking Status: Never smoker Past Alcohol Use History: None Reported Past Drug Use History: None Reported - Past Family History Family Family Medical History: No Reported History Medications and Allergies Home Medications Medication Instructions Recorded Confirmed Type Acetaminophen Tab [Tylenol] 1,000 mg PO Q8H PRN MDD 6 TABS 12/09/20 02/03/22 History Omeprazole 40 mg PO DAILY 12/09/20 02/03/22 History Sertraline [Zoloft] 50 mg PO DAILY 04/27/21 02/03/22 History Tamsulosin HCl [Flomax] 0.8 mg PO DAILY 04/27/21 02/03/22 History Atorvastatin [Lipitor] 80 mg PO HS 30 Days #30 tab 04/30/21 02/03/22 Rx Clopidogrel [Plavix] 75 mg PO DAILY 30 Days #30 tab 05/01/21 02/03/22 Rx clonazePAM [KlonoPIN] 1 mg PO BID #6 tab 05/08/21 02/03/22 Rx Aspirin 81 mg PO DAILY 07/28/21 02/03/22 History Losartan [Cozaar] 25 mg PO HS 07/28/21 02/03/22 History Metoprolol Tartrate [Lopressor] 25 mg PO BID 07/28/21 02/03/22 History Solifenacin Succinate [Vesicare] 10 mg PO DAILY 12/31/21 02/03/22 History Sennosides-Docusate Sodium 2 tab PO DAILY PRN 02/03/22 02/03/22 History [Senokot-S] cloZAPine [Clozaril] 200 mg PO BID@0800,1200 02/03/22 02/03/22 History cloZAPine [Clozaril] 400 mg PO HS 02/03/22 02/03/22 History Allergies Allergy/AdvReac Type Severity Reaction Status Date / Time No Known Allergies Allergy Verified 02/03/22 20:21 Physical Exam Vitals: Vital Signs Temp Pulse Resp BP Pulse Ox 02/03/22 17:16 97.4 F L 78 18 144/85 97 Intake and Output 02/03/22 02/03/22 02/03/22 06:59 14:59 22:59 Other: Weight 89.811 kg Constitutional: No acute distress, conversant, pleasant Eyes: Anicteric sclerae, moist conjunctiva, Pupils equal round reactive to light ENMT: NC/AT Oropharynx clear, no erythema, or exudates Neck: Supple, , no masses, or JVD No carotid bruits No thyromegaly Lungs: Clear to auscultation Clear to percussion Normal respiratory effort, no accessory muscle use Cardiovascular: Heart regular in rate and rhythm, No murmurs, gallops, or rubs No peripheral edema Abdominal: Soft Nontender, no guarding, rebound or rigidity Abdomen moving with respiration Normoactive bowel sounds No hepatomegaly, No splenomegaly No palpable mass Inguinal hernia reducible Skin: Normal temperature, tone, texture, turgor No induration No subcutaneous nodules No rash, lesions No ulcers Extremities: No digital cyanosis No clubbing Pedal pulses intact and symmetrical Radial pulses intact and symmetrical No calf tenderness Psychiatric: Alert and oriented to person, place Neuro Muscles Strength 4/5 in all 4 extremities Sensation to light touch grossly present throughout Cranial nerves II-XII grossly intact No focal sensory deficits Results CBC & Chem 7: 02/03/22 20:39 02/03/22 20:39 Labs: Abnormal Lab Results - Last 24 Hours (Table) 02/03/22 02/03/22 Range/Units 20:39 20:39 RBC 4.05 L (4.30-5.90) m/uL Hgb 11.7 L (13.0-17.5) gm/dL Hct 35.3 L (39.0-53.0) % Lymphocytes # 0.7 L (1.0-4.8) k/uL Sodium 123 L (137-145) mmol/L Chloride 90 L (98-107) mmol/L Glucose 158 H (74-99) mg/dL Total Protein 6.1 L (6.3-8.2) g/dL Assessment and Plan Assessment: Hyponatremia Frequent falling, with history of Parkinson's disease History of schizophrenia Plan Patient has history of schizophrenia intensive drink a lot of. pure water Urine osmolality and serum osmolality both hypotonic Patient received a bolus of normal saline continued on gentle IV fluid hydration with normal saline Repeat sodium level in the morning Free water restriction Fall precautions PT evaluation Chronic conditions Anemia, denies any GI bleeding Inguinal hernia, reducible Hypertension, coronary artery disease status post stents continue with home cardiac meds aspirin, statin, Plavix, metoprolol, losartan Schizophrenia continue with psych meds Right fifth metatarsal fracture continue with outpatient follow-up with orthopedic currently splint DVT prophylaxis have a subcu 3 times a day Full code
[2022-02-04] MEDS: SERTRALINE 50 MG TAB PO SCH (07:45)
[2022-02-04] MEDS: ASPIRIN 81 MG PO SCH (07:45)
[2022-02-04] MEDS: cloZAPine 100 MG TAB PO SCH ×2 (07:45→11:34)
[2022-02-04] MEDS: TROSPIUM CHLORIDE 20 MG TABLET PO SCH ×2 (07:45→20:41)
[2022-02-04] MEDS: clonazePAM 1 MG TAB PO SCH ×2 (07:45→20:41)
[2022-02-04] MEDS: HEPARIN SODIUM,PORCINE/PF 5,000 UNIT/0.5 ML SYRINGE SQ SCH ×3 (07:45→23:31)
[2022-02-04] MEDS: PANTOPRAZOLE 40 MG TABLET PO SCH (07:46)
[2022-02-04] MEDS: DOCUSATE 100 MG CAP PO SCH ×2 (07:46→20:41)
[2022-02-04] MEDS: TAMSULOSIN 0.4 MG CAP.ER.24H PO SCH ×2 (07:46→20:41)
[2022-02-04] MEDS: CLOPIDOGREL 75 MG TAB PO SCH (07:46)
[2022-02-04] MEDS: METOPROLOL TARTRATE 25 MG TAB PO SCH (07:46)
[2022-02-04] MEDS: SODIUM CHLORIDE 0.9% 1,000 ML IV SCH (07:51)
[2022-02-04 10:59] LABS: African American GFR (CKD) 102.1 (60.0-200.0); Anion Gap 9.3 mmol/L (10.00-18.00); BUN/Creat Ratio 7.22 Ratio (12.00-20.00); Blood Urea Nitrogen 6.5 mg/dL (9.0-27.0); Calcium 8.5 mg/dL (8.7-10.3); Carbon Dioxide 24.7 mmol/L (20.0-27.5); Non-African American GFR(CKD) 88.1 (60.0-200.0); Potassium 4.2 mmol/L (3.5-5.5)
--- NOTE | 2022-02-04 12:45 | P.CNOR ---
History of Present Illness - [facility] Consult date: 02/04/22 History of present illness: This patient is a 66- year old male with a past medical history of schizophrenia, Parkinson disease, hypertension, coronary artery disease that presented to [facility] emergency department yesterday via EMS. Patient is a resident at [facility] and apparently had a dizzy spell and recent fall. He did have a known right foot fracture from a fall sustained on 01/26/22. Upon evaluation in the emergency department, patient was found to be hyponatremic. Patient was admitted under the care of internal medicine with a consult placed to orthopedic surgery for evaluation of a right foot fracture. Patient is examined bedside this morning. He states he is unsure of when he fell. He is states the pain is controlled in his right foot currently. He denies additional injuries or complaints at this time. Vital signs stable. Past Medical History Past Medical History: Hypertension Additional Past Medical History / Comment(s): renal CA with surgery History of Any Multi-Drug Resistant Organisms: Unobtainable Past Surgical History: Heart Catheterization With Stent, Orthopedic Surgery Additional Past Surgical History / Comment(s): cryoablation for renal CA, Heart Catheterization 04/23/2021, Past Anesthesia/Blood Transfusion Reactions: No Reported Reaction Date of Last Stent Placement:: 04/23/21 Type of Cardiac Device: Biventricular Pacemaker, Unknown Device Placement Date:: unknown Past Psychological History: Schizophrenia Smoking Status: Never smoker Past Alcohol Use History: None Reported Past Drug Use History: None Reported - Past Family History Family Family Medical History: No Reported History Medications and Allergies Home Medications Medication Instructions Recorded Confirmed Type Acetaminophen Tab [Tylenol] 1,000 mg PO Q8H PRN MDD 6 TABS 12/09/20 02/03/22 History Omeprazole 40 mg PO DAILY 12/09/20 02/03/22 History Sertraline [Zoloft] 50 mg PO DAILY 04/27/21 02/03/22 History Tamsulosin HCl [Flomax] 0.8 mg PO DAILY 04/27/21 02/03/22 History Atorvastatin [Lipitor] 80 mg PO HS 30 Days #30 tab 04/30/21 02/03/22 Rx Clopidogrel [Plavix] 75 mg PO DAILY 30 Days #30 tab 05/01/21 02/03/22 Rx clonazePAM [KlonoPIN] 1 mg PO BID #6 tab 05/08/21 02/03/22 Rx Aspirin 81 mg PO DAILY 07/28/21 02/03/22 History Losartan [Cozaar] 25 mg PO HS 07/28/21 02/03/22 History Metoprolol Tartrate [Lopressor] 25 mg PO BID 07/28/21 02/03/22 History Solifenacin Succinate [Vesicare] 10 mg PO DAILY 12/31/21 02/03/22 History Sennosides-Docusate Sodium 2 tab PO DAILY PRN 02/03/22 02/03/22 History [Senokot-S] cloZAPine [Clozaril] 200 mg PO BID@0800,1200 02/03/22 02/03/22 History cloZAPine [Clozaril] 400 mg PO HS 02/03/22 02/03/22 History Allergies Allergy/AdvReac Type Severity Reaction Status Date / Time No Known Allergies Allergy Verified 02/03/22 20:21 Physical Examination On examination, patient is sitting up in bed in no apparent distress. He is alert and answers questions appropriately, although appears mildly confused. His head appears normocephalic and atraumatic. His breathing appears nonlabored. On inspection of his bilateral upper extremities, there are no obvious deformities or signs of trauma. On inspection of his left lower extremity, no obvious deformities or signs of trauma. On inspection of the right lower extremity, there is a short leg splint in place. Splint is taken down at the foot and reveals mild swelling of the lateral foot and ecchymosis. No open wounds. Pain with palpation of the lateral foot, non-tender at the knee, lower leg, ankle. No pain wit PROM of the right hip, knee, ankle, toes. Motor and sensory function grossly intact RLE. RLE warm and well perfused with brisk capillary refill of all toes. Results Right foot x-ray 02/03/22: Displaced 5th metatarsal shaft fracture - Labs Labs: Abnormal Lab Results - Last 24 Hours (Table) 02/03/22 02/03/22 02/03/22 Range/Units 20:39 20:39 20:39 RBC 4.05 L (4.30-5.90) m/uL Hgb 11.7 L (13.0-17.5) gm/dL Hct 35.3 L (39.0-53.0) % Lymphocytes # 0.7 L (1.0-4.8) k/uL Sodium 123 L (137-145) mmol/L Chloride 90 L (98-107) mmol/L Anion Gap (10.00-18.00) mmol/L BUN (9.0-27.0) mg/dL BUN/Creatinine Ratio (12.00-20.00) Ratio Glucose 158 H (74-99) mg/dL Osmolality 262 L (280-301) mosm/kg Calcium (8.7-10.3) mg/dL Total Protein 6.1 L (6.3-8.2) g/dL Urine Blood (Negative) Ur Leukocyte Esterase (Negative) Urine WBC (0-5) /hpf Urine Bacteria (None) /hpf 02/03/22 02/04/22 Range/Units 22:00 06:29 RBC (4.30-5.90) m/uL Hgb (13.0-17.5) gm/dL Hct (39.0-53.0) % Lymphocytes # (1.0-4.8) k/uL Sodium (137-145) mmol/L Chloride (98-107) mmol/L Anion Gap 9.30 L (10.00-18.00) mmol/L BUN 6.5 L (9.0-27.0) mg/dL BUN/Creatinine Ratio 7.22 L (12.00-20.00) Ratio Glucose (74-99) mg/dL Osmolality (280-301) mosm/kg Calcium 8.5 L (8.7-10.3) mg/dL Total Protein (6.3-8.2) g/dL Urine Blood Trace H (Negative) Ur Leukocyte Esterase Large H (Negative) Urine WBC 21 H (0-5) /hpf Urine Bacteria Few H (None) /hpf Microbiology - Last 24 Hours (Table) 02/03/22 22:00 Urine Culture - Preliminary Urine,Voided H & H 02/03/22 Range/Units 20:39 Hgb 11.7 L (13.0-17.5) gm/dL Hct 35.3 L (39.0-53.0) % Coagulation 02/03/22 Range/Units 20:39 INR 1.0 (<1.2) Result Diagrams: 02/03/22 20:39 02/04/22 12:12 Assessment and Plan Assessment: Displaced 5th metatarsal shaft fracture Plan: - The clinical and imaging findings were discussed with the patient. The patient was discussed with Dr. Wood. No surgical intervention is recommended at this time. Patient may transition into a tall CAM boot on the right foot. He may bear weight to tolerance on the right foot while wearing the boot and using a walker. - Physical therapy for gait and balance training with the boot. - Ice, elevation right foot for swelling and pain control. - Recommend follow-up in the office in one week for repeat x-rays.
--- NOTE | 2022-02-04 17:19 | P.PN ---
Progress Note - Text Progress Note Date: 02/04/22 Mr. Russell was seen and examined. He feels well today with no acute complaints. Tells me he's been falling frequently as he feels he has been unsteady on his feet. Vitals: Reviewed General: No acute distress HEENT: Mucous membranes moist, neck supple Cardiovascular: RRR, S1-S2 Lungs: Breath sounds equal and clear to auscultation bilaterally. No wheezing, rhonchi or rales Abdomen: Soft, nontender, nondistended Extremities: No lower extremity edema Assessment and plan 1. Frequent falls Likely secondary to debility. There was some mention of lightheadedness in previous documentation therefore will order orthostatics. PT/OT. 2. Hypotonic hyponatremia, improved Likely component of hypovolemic as improved with IV fluids. Seem to have overcorrected from fluids overnight but now correction okay as it is increased by 8 since admission. We'll repeat sodium later on today and tomorrow morning. 3. Right fifth metatarsal displaced fracture No surgical invention plan orthopedics. They wish for weightbearing as tolerated with the boot. 4. History of CAD status post stenting Continue with aspirin, statin, Plavix, beta arias and ARB 5. History of schizophrenia Stable. Continue home psych meds. 6. Hypertension BP currently acceptable. Continue with home beta arias and losartan. Disposition: Will likely need placement, anticipate ready for discharge within 24 hours DVT prophylaxis with subcu heparin
[2022-02-04] MEDS ORDERED: ATORVASTATIN 80 MG TAB PO SCH (21:00)
[2022-02-04] MEDS ORDERED: LOSARTAN 25 MG TAB PO SCH (21:00)
[2022-02-04] MEDS ORDERED: cloZAPine 100 MG TAB PO SCH (21:00)
[2022-02-05 07:04] LABS: Basophils % (A) 1 %; Eosinophils # (A) 0.1 k/uL (0-0.7); Eosinophils % (A) 2 %; HCT 35.8 % (39.0-53.0); HGB 11.8 gm/dL (13.0-17.5); Lymphocytes # (A) 1.2 k/uL (1.0-4.8); Lymphocytes % (A) 18 %; MCH 28.9 pg (25.0-35.0); MCHC 33.1 g/dL (31.0-37.0); MCV 87.5 fL (80.0-100.0); Mean Platelet Volume 7.4; Monocytes # (A) 0.4 k/uL (0-1.0); Monocytes % (A) 6 %; Neutrophils # (A) 4.7 k/uL (1.3-7.7); Neutrophils % (A) 72 %; Platelet Count 250 k/uL (150-450); RBC 4.09 m/uL (4.30-5.90); RDW 15.1 % (11.5-15.5); WBC 6.5 k/uL (3.8-10.6)
[2022-02-05] MEDS: PANTOPRAZOLE 40 MG TABLET PO SCH (08:29)
[2022-02-05] MEDS: SERTRALINE 50 MG TAB PO SCH (08:29)
[2022-02-05] MEDS: TAMSULOSIN 0.4 MG CAP.ER.24H PO SCH (08:29)
[2022-02-05] MEDS: CLOPIDOGREL 75 MG TAB PO SCH (08:29)
[2022-02-05] MEDS: clonazePAM 1 MG TAB PO SCH (08:29)
[2022-02-05] MEDS: HEPARIN SODIUM,PORCINE/PF 5,000 UNIT/0.5 ML SYRINGE SQ SCH ×2 (08:29→16:28)
[2022-02-05] MEDS: DOCUSATE 100 MG CAP PO SCH (08:29)
[2022-02-05] MEDS: TROSPIUM CHLORIDE 20 MG TABLET PO SCH (08:30)
[2022-02-05] MEDS: cloZAPine 100 MG TAB PO SCH ×2 (08:30→12:49)
[2022-02-05] MEDS: METOPROLOL TARTRATE 25 MG TAB PO SCH (08:30)
[2022-02-05] MEDS: ASPIRIN 81 MG PO SCH (08:31)
[2022-02-05 10:56] LABS: African American GFR (CKD) >90 (>60 ml/min/1.73 sqM); Anion Gap 5 mmol/L; Blood Urea Nitrogen 10 mg/dL (9-20); Calcium 8.5 mg/dL (8.4-10.2); Carbon Dioxide 26 mmol/L (22-30); Chloride 100 mmol/L (98-107); Glucose 86 mg/dL (74-99); Non-African American GFR(CKD) >90 (>60 ml/min/1.73 sqM); Potassium 4.3 mmol/L (3.5-5.1); Sodium 131 mmol/L (137-145)
[2022-02-05 12:35] VITALS: RESP 16; TEMP 97.6
--- NOTE | 2022-02-05 13:50 | P.PN ---
Progress Note - Text Progress Note Date: 02/05/22 CC: Unsteady when walking Mr. Russell was seen and examined. He continues to feel well denying any acute complaints. Plan of care discussed with him. Vitals: Reviewed General: No acute distress HEENT: Mucous membranes moist, neck supple Cardiovascular: RRR, S1-S2 Lungs: Breath sounds equal and clear to auscultation bilaterally. No wheezing, rhonchi or rales Abdomen: Soft, nontender, nondistended Extremities: No lower extremity edema Assessment and plan 1. Frequent falls Likely secondary to debility with possible component of orthostatic hypotension as orthostatics are positive although denies lightheadedness with standing. PT recommending subacute rehab. 2. Hypotonic hyponatremia, improved Likely component of hypovolemic as improved with IV fluids. Sodium level stable in the 130s. Check urine studies. 3. Right fifth metatarsal displaced fracture No surgical invention plan orthopedics. They wish for weightbearing as tolerated with the boot. 4. History of CAD status post stenting Continue with aspirin, statin, Plavix, beta arias and ARB 5. History of schizophrenia Stable. Continue home psych meds. 6. Hypertension BP currently acceptable. Continue with home beta arias and losartan. 7. Orthostatic hypotension Orthostatics positive. We will repeat today. May have chronic orthostatic hypotension from autonomic dysfunction from his Parkinson's? Denies lightheadedness with standing. Disposition: Pending placement DVT prophylaxis with subcu heparin
--- NOTE | 2022-02-05 15:46 | P.DS ---
Providers Date of admission: 02/03/22 23:05 Attending physician: Qiana Best MD Consults: 02/03/22 21:49 Consult Physician Routine Consulting Provider: Marcell Wood Consult Reason/Comments: Right fifth metatarsal fracture Do you want consulting provider notified?: Yes, Notify in am Primary care physician: [facility] Assessment: Mr. Russell presented after a fall. He has a medical history is different for Parkinson's disease?, Schizophrenia, hypertension, CAD. He recently had a right foot injury with a fifth metatarsal fracture around January 27. This is redemonstrated on imaging. He was evaluated by Ortho who recommended walking boot and outpatient follow-up. He was found to be hyponatremic on admission. His hyponatremia improved with IV fluids. His sodium has been stable in the low 130s. He will be given a prescription for BMP in 3 days. He's a symptomatic. Orthostats were taken and positive. He has denied any lightheadedness upon standing. I've elected to hold his losartan for now and can be restarted and the facility if becomes hypertensive. This may be due to autonomic dysfunction. PT evaluated him and recommended VIOLETA. He is agreeable. He is instructed to follow-up with primary care provider and orthopedic surgeon outpatient. Discharge diagnoses 1. Hypotonic hyponatremia, resolved 2. Frequent falls likely secondary to inability 3. Right fifth metatarsal displaced fracture 4. History of CAD status post stenting 5. History of schizophrenia 6. Hypertension 7. Orthostatic hypotension, asymptomatic Discharge date: 02/05/2022 Discharge correlations time greater than 30 minutes Vitals reviewed Constitutional: No acute distress, conversant, pleasant Eyes: Anicteric sclerae, moist conjunctiva, no lid-lag ENMT: NC/AT Oropharynx clear, no erythema, exudates Neck: Supple, FROM, no masses, or JVD Lungs: Clear to auscultation Clear to percussion Normal respiratory effort, no accessory muscle use Cardiovascular: Heart regular in rate and rhythm, No murmurs, gallops, or rubs No peripheral edema Abdominal: Soft Nontender, no guarding, rebound or rigidity Abdomen moving with respiration Normoactive bowel sounds No hepatomegaly, No splenomegaly No palpable mass No abdominal wall hernia noted Skin: Normal temperature, tone, texture, turgor No induration No subcutaneous nodules No rash, lesions No ulcers Extremities: No digital cyanosis No clubbing Patient Condition at Discharge: Good Plan - Discharge Summary Discharge Rx Participant: Yes New Discharge Prescriptions: Continue Omeprazole 40 mg PO DAILY Acetaminophen Tab [Tylenol] 1,000 mg PO Q8H PRN MDD 6 TABS PRN Reason: Fever And/ Or Pain clonazePAM [KlonoPIN] 1 mg PO BID #6 tab Metoprolol Tartrate [Lopressor] 25 mg PO BID Solifenacin Succinate [Vesicare] 10 mg PO DAILY cloZAPine [Clozaril] 400 mg PO HS Sennosides-Docusate Sodium [Senokot-S] 2 tab PO DAILY PRN PRN Reason: Constipation Sertraline [Zoloft] 50 mg PO DAILY Tamsulosin HCl [Flomax] 0.8 mg PO DAILY Atorvastatin [Lipitor] 80 mg PO HS 30 Days #30 tab Clopidogrel [Plavix] 75 mg PO DAILY 30 Days #30 tab Aspirin 81 mg PO DAILY cloZAPine [Clozaril] 200 mg PO BID@0800,1200 Discontinued Losartan [Cozaar] 25 mg PO HS Discharge Medication List Acetaminophen Tab [Tylenol] 1,000 mg PO Q8H PRN MDD 6 TABS 12/09/20 [History] Omeprazole 40 mg PO DAILY 12/09/20 [History] Sertraline [Zoloft] 50 mg PO DAILY 04/27/21 [History] Tamsulosin HCl [Flomax] 0.8 mg PO DAILY 04/27/21 [History] Atorvastatin [Lipitor] 80 mg PO HS 30 Days #30 tab 04/30/21 [Rx] Clopidogrel [Plavix] 75 mg PO DAILY 30 Days #30 tab 05/01/21 [Rx] clonazePAM [KlonoPIN] 1 mg PO BID #6 tab 05/08/21 [Rx] Aspirin 81 mg PO DAILY 07/28/21 [History] Metoprolol Tartrate [Lopressor] 25 mg PO BID 07/28/21 [History] Solifenacin Succinate [Vesicare] 10 mg PO DAILY 12/31/21 [History] Sennosides-Docusate Sodium [Senokot-S] 2 tab PO DAILY PRN 02/03/22 [History] cloZAPine [Clozaril] 200 mg PO BID@0800,1200 02/03/22 [History] cloZAPine [Clozaril] 400 mg PO HS 02/03/22 [History] Follow up Appointment(s)/Referral(s): Marcell Wood MD [Medical Doctor] - 1 Week [facility] [Primary Care Provider] - 1-2 days Activity/Diet/Wound Care/Special Instructions: Weight bear as tolerated on right foot in the tall CAM boot. Use a walker for ambulation. Fall precautions. May remove boot for hygiene. Ice, elevate right foot for swelling and pain control. Follow-up at [facility] in one week for repeat x-rays. Losartan 25 mg daily was held for positive orthostatic hypotension, please reevaluate at the facility can restart if persistently hypertensive Currently asymptomatic but if begins to feel lightheaded upon standing please discontinue Flomax Fall precautions at the facility, please ambulate with assistance Please have repeat labs at the facility in 3 days, prescription given Discharge Disposition: TRANSFER TO SNF/ECF
[2022-02-05 15:54] VITALS: BP 157/90
[2022-02-05 15:56] VITALS: PULSE 71
== END 2022-02-05 18:23 | DRG 641 ==
LOC: EC 17:09 → 5NMEDONC 23:05
PROVIDERS: ADMIT Internal Medicine; ATTEND Internal Medicine
DX: E87.1 Hypo-osmolality and hyponatremia (principal); S09.90XA Unspecified injury of head, initial encounter; G20 Parkinson's disease; E86.1 Hypovolemia; F20.9 Schizophrenia, unspecified; D64.9 Anemia, unspecified; G31.9 Degenerative disease of nervous system, unspecified; Z20.822 Contact with and (suspected) exposure to COVID-19; I10 Essential (primary) hypertension; I95.1 Orthostatic hypotension; M50.30 Other cervical disc degeneration, unspecified cervical region; K40.90 Unilateral inguinal hernia, without obstruction or gangrene, not specified as recurrent; S92.351A Displaced fracture of fifth metatarsal bone, right foot, initial encounter for closed fracture; I25.10 Atherosclerotic heart disease of native coronary artery without angina pectoris; R29.6 Repeated falls; Z79.82 Long term (current) use of aspirin; Z79.02 Long term (current) use of antithrombotics/antiplatelets; Z79.899 Other long term (current) drug therapy; Z85.528 Personal history of other malignant neoplasm of kidney; Z95.5 Presence of coronary angioplasty implant and graft; Z95.0 Presence of cardiac pacemaker; W19.XXXA Unspecified fall, initial encounter; Y92.129 Unspecified place in nursing home as the place of occurrence of the external cause
CPT/HCPCS: 36415; 70450; 72125; 80048; 80053; 81001; 82533; 83605; 83930; 83935; 84295; 84300; 84443; 84484; 85025; 85610; 87077; 87086; 87186; 87635; 93005; 96360; 99285

== ENCOUNTER → 2022-02-17 | Outpatient (CLI) | payer OTHER, MEDICARE ==
[2022-02-17 16:38] LABS: Basophils % (A) 0 %; Eosinophils # (A) 0.1 k/uL (0-0.7); Eosinophils % (A) 1 %; HCT 36.8 % (39.0-53.0); HGB 11.7 gm/dL (13.0-17.5); Lymphocytes # (A) 0.6 k/uL (1.0-4.8); Lymphocytes % (A) 6 %; MCH 28.1 pg (25.0-35.0); MCHC 31.8 g/dL (31.0-37.0); MCV 88.3 fL (80.0-100.0); Mean Platelet Volume 7.6; Monocytes # (A) 0.5 k/uL (0-1.0); Monocytes % (A) 5 %; Neutrophils # (A) 8.6 k/uL (1.3-7.7); Neutrophils % (A) 87 %; Platelet Count 280 k/uL (150-450); RBC 4.17 m/uL (4.30-5.90); RDW 14.6 % (11.5-15.5); WBC 9.9 k/uL (3.8-10.6)
[2022-02-17 16:47] LABS: ALT 21 U/L (4-49); AST 23 U/L (17-59); African American GFR (CKD) >90 (>60 ml/min/1.73 sqM); Albumin 3.9 g/dL (3.5-5.0); Alkaline Phosphatase 80 U/L (38-126); Amylase 42 U/L (30-110); Anion Gap 8 mmol/L; Blood Urea Nitrogen 14 mg/dL (9-20); Calcium 8.5 mg/dL (8.4-10.2); Carbon Dioxide 25 mmol/L (22-30); Chloride 88 mmol/L (98-107); Glucose 106 mg/dL (74-99); Lipase 66 U/L (23-300); Non-African American GFR(CKD) 90 (>60 ml/min/1.73 sqM); Potassium 4.1 mmol/L (3.5-5.1); Sodium 121 mmol/L (137-145); Total Bilirubin 0.7 mg/dL (0.2-1.3); Total Protein 5.9 g/dL (6.3-8.2)
[2022-02-17 17:43] LABS: Appearance,Urine Cloudy (Clear); Bacteria,Urine Many /hpf; Bilirubin,Urine Negative (Negative); Blood,Urine Trace (Negative); Color,Urine Yellow; Glucose,Urine (UA) Negative (Negative); Ketones,Urine Negative (Negative); Leukocyte Esterase,Urine Large (Negative); Mucus,Urine Rare /hpf; Nitrite,Urine Negative (Negative); PH, Urine 6.5 (5.0-8.0); Protein,Urine 1+ (Negative); RBC,Urine 3 /hpf (0-5); Specific Gravity,Urine 1.015 (1.001-1.035); WBC,Urine 117 /hpf (0-5)
== END | disposition home or self-care (01) ==
LOC: LABMARSNF 16:19 → LABPRL 16:19 → EDSTATUS 17:02
PROVIDERS: ATTEND Family Medicine
DX: R41.0 Disorientation, unspecified (principal)
CPT/HCPCS: 80053; 81001; 82150; 83690; 85025; 87077; 87086; 87186

== ENCOUNTER 2022-05-02 09:53 | Emergency (ER) | payer OTHER, MEDICARE ==
[2022-05-02] MEDS ORDERED: SODIUM CHLORIDE 0.9% 1,000 ML IV ONE (10:02)
[2022-05-02 10:06] VITALS: RESP 18; TEMP 98.4
--- NOTE | 2022-05-02 10:06 | ED ---
General Adult HPI - General Stated complaint: Nuro Symptoms Time Seen by Provider: 05/02/22 09:55 Source: patient, RN notes reviewed, old records reviewed - History of Present Illness Initial comments: This is a 66-year-old male who has past medical history significant for closed head injury. Patient states she's been unstable for the last 8 months he has a walker but he doesn't use it when he goes out. Patient states she was in a bit of a jernigan while he was at [employer] and he fell he states he hit his nose a little bit on the concrete but it does not hurt currently. Patient denies any symptoms currently. Patient denies headache patient denies numbness weakness. Patient denies any facial tenderness. Patient denies any chest pain. Patient denies any back pain. Patient denies any abdominal pain. Patient denies any extremity pain. - Related Data Home Medications Medication Instructions Recorded Confirmed Acetaminophen Tab [Tylenol] 1,000 mg PO Q8H PRN MDD 6 TABS 12/09/20 02/03/22 Omeprazole 40 mg PO DAILY 12/09/20 02/03/22 Sertraline [Zoloft] 50 mg PO DAILY 04/27/21 02/03/22 Aspirin 81 mg PO DAILY 07/28/21 02/03/22 Metoprolol Tartrate [Lopressor] 25 mg PO BID 07/28/21 02/03/22 Solifenacin Succinate [Vesicare] 10 mg PO DAILY 12/31/21 02/03/22 Sennosides-Docusate Sodium 2 tab PO DAILY PRN 02/03/22 02/03/22 [Senokot-S] cloZAPine [Clozaril] 200 mg PO BID@0800,1200 02/03/22 02/03/22 cloZAPine [Clozaril] 400 mg PO HS 02/03/22 02/03/22 Previous Rx's Medication Instructions Recorded Atorvastatin [Lipitor] 80 mg PO HS 30 Days #30 tab 04/30/21 Clopidogrel [Plavix] 75 mg PO DAILY 30 Days #30 tab 05/01/21 clonazePAM [KlonoPIN] 1 mg PO BID #6 tab 05/08/21 Allergies Allergy/AdvReac Type Severity Reaction Status Date / Time No Known Allergies Allergy Verified 05/02/22 10:06 Review of Systems ROS Statement: Those systems with pertinent positive or pertinent negative responses have been documented in the HPI. ROS Other: All systems not noted in ROS Statement are negative. Past Medical History Past Medical History: Hypertension Additional Past Medical History / Comment(s): renal CA with surgery History of Any Multi-Drug Resistant Organisms: Unobtainable Past Surgical History: Heart Catheterization With Stent, Orthopedic Surgery Additional Past Surgical History / Comment(s): cryoablation for renal CA, Heart Catheterization 04/23/2021, Past Anesthesia/Blood Transfusion Reactions: No Reported Reaction Date of Last Stent Placement:: 04/23/21 Type of Cardiac Device: Biventricular Pacemaker, Unknown Device Placement Date:: unknown Past Psychological History: Schizophrenia Smoking Status: Never smoker Past Alcohol Use History: None Reported Past Drug Use History: None Reported - Past Family History Family Family Medical History: No Reported History General Exam - General Exam Comments Initial Comments: GENERAL: Patient is well-developed and well-nourished. Patient is nontoxic and well- hydrated and is in no acute distress. ENT: Neck is soft and supple. No significant lymphadenopathy is noted. Oropharynx is clear. Moist mucous membranes. Neck has full range of motion without eliciting any pain. EYES: The sclera were anicteric and conjunctiva were pink and moist. Extraocular movements were intact and pupils were equal round and reactive to light. Eyelids were unremarkable. PULMONARY: Unlabored respirations. Good breath sounds bilaterally. No audible rales rhonchi or wheezing was noted. CARDIOVASCULAR: There is a regular rate and rhythm without any murmurs gallops or rubs. ABDOMEN: Soft and nontender with normal bowel sounds. SKIN: Skin is clear with no lesions or rashes and otherwise unremarkable. NEUROLOGIC: Patient is alert and oriented x3. Cranial nerves II through XII are grossly intact. Motor and sensory are also intact. Normal speech, volume and content. Symmetrical smile. MUSCULOSKELETAL: Normal extremities with adequate strength and full range of motion. LYMPHATICS: No significant lymphadenopathy is noted PSYCHIATRIC: Normal psychiatric evaluation. Course Vital Signs 05/02/22 05/02/22 05/02/22 09:54 11:40 11:48 Temperature 98.4 F Pulse Rate 79 70 Pulse Rate [ 68 Turning Sander Tender ] Respiratory 18 18 18 Rate Blood Pressure 95/63 110/69 Blood Pressure 96/58 [Left Arm Sitting] Blood Pressure 97/66 [Left Arm Standing] Blood Pressure 111/69 [Left Arm Supine] O2 Sat by Pulse 97 97 96 Oximetry Medical Decision Making - Medical Decision Making EKG shows sinus rhythm at 71 bpm [place] interval is 155 QRS is 92 QT interval 393 QTC is 416. Patient's EKG shows no ST segment elevation or depression. ct of brain and cspine no acute abnormalities pt ambulated without problems - Lab Data Result diagrams: 05/02/22 10:17 10 10:17 Lab Results 05/02/22 05/02/22 05/02/22 Range/Units 10:17 10:17 10:17 WBC 6.1 (3.8-10.6) k/uL RBC 4.26 L (4.30-5.90) m/uL Hgb 12.4 L (13.0-17.5) gm/dL Hct 36.8 L (39.0-53.0) % MCV 86.4 (80.0-100.0) fL MCH 29.2 (25.0-35.0) pg MCHC 33.8 (31.0-37.0) g/dL RDW 14.6 (11.5-15.5) % Plt Count 253 (150-450) k/uL MPV 8.2 Neutrophils % 79 % Lymphocytes % 14 % Monocytes % 5 % Eosinophils % 2 % Basophils % 0 % Neutrophils # 4.8 (1.3-7.7) k/uL Lymphocytes # 0.8 L (1.0-4.8) k/uL Monocytes # 0.3 (0-1.0) k/uL Eosinophils # 0.1 (0-0.7) k/uL Basophils # 0.0 (0-0.2) k/uL PT 10.9 (9.0-12.0) sec INR 1.0 (<1.2) APTT 21.4 L (22.0-30.0) sec Sodium 134 L (137-145) mmol/L Potassium 4.2 (3.5-5.1) mmol/L Chloride 102 (98-107) mmol/L Carbon Dioxide 21 L (22-30) mmol/L Anion Gap 11 mmol/L BUN 8 L (9-20) mg/dL Creatinine 1.06 (0.66-1.25) mg/dL Est GFR (CKD-EPI)AfAm 84 (>60 ml/min/1.73 sqM) Est GFR (CKD-EPI)NonAf 73 (>60 ml/min/1.73 sqM) Glucose 110 H (74-99) mg/dL Calcium 8.7 (8.4-10.2) mg/dL Magnesium 2.0 (1.6-2.3) mg/dL Total Bilirubin 0.6 (0.2-1.3) mg/dL AST 20 (17-59) U/L ALT 17 (4-49) U/L Alkaline Phosphatase 65 (38-126) U/L Troponin I (0.000-0.034) ng/mL Total Protein 5.8 L (6.3-8.2) g/dL Albumin 4.1 (3.5-5.0) g/dL 05/02/22 Range/Units 10:17 WBC (3.8-10.6) k/uL RBC (4.30-5.90) m/uL Hgb (13.0-17.5) gm/dL Hct (39.0-53.0) % MCV (80.0-100.0) fL MCH (25.0-35.0) pg MCHC (31.0-37.0) g/dL RDW (11.5-15.5) % Plt Count (150-450) k/uL MPV Neutrophils % % Lymphocytes % % Monocytes % % Eosinophils % % Basophils % % Neutrophils # (1.3-7.7) k/uL Lymphocytes # (1.0-4.8) k/uL Monocytes # (0-1.0) k/uL Eosinophils # (0-0.7) k/uL Basophils # (0-0.2) k/uL PT (9.0-12.0) sec INR (<1.2) APTT (22.0-30.0) sec Sodium (137-145) mmol/L Potassium (3.5-5.1) mmol/L Chloride (98-107) mmol/L Carbon Dioxide (22-30) mmol/L Anion Gap mmol/L BUN (9-20) mg/dL Creatinine (0.66-1.25) mg/dL Est GFR (CKD-EPI)AfAm (>60 ml/min/1.73 sqM) Est GFR (CKD-EPI)NonAf (>60 ml/min/1.73 sqM) Glucose (74-99) mg/dL Calcium (8.4-10.2) mg/dL Magnesium (1.6-2.3) mg/dL Total Bilirubin (0.2-1.3) mg/dL AST (17-59) U/L ALT (4-49) U/L Alkaline Phosphatase (38-126) U/L Troponin I <0.012 (0.000-0.034) ng/mL Total Protein (6.3-8.2) g/dL Albumin (3.5-5.0) g/dL Disposition Clinical Impression: Fall Disposition: HOME SELF-CARE Instructions (If sedation given, give patient instructions): Fall Prevention for Older Adults (ED) Is patient prescribed a controlled substance at d/c from ED?: No Referrals: Mac Cormier MD [STAFF PHYSICIAN] - 1-2 days Time of Disposition: 13:16
[2022-05-02 10:42] LABS: Basophils % (A) 0 %; Eosinophils # (A) 0.1 k/uL (0-0.7); Eosinophils % (A) 2 %; HCT 36.8 % (39.0-53.0); HGB 12.4 gm/dL (13.0-17.5); Lymphocytes # (A) 0.8 k/uL (1.0-4.8); Lymphocytes % (A) 14 %; MCH 29.2 pg (25.0-35.0); MCHC 33.8 g/dL (31.0-37.0); MCV 86.4 fL (80.0-100.0); Mean Platelet Volume 8.2; Monocytes # (A) 0.3 k/uL (0-1.0); Monocytes % (A) 5 %; Neutrophils # (A) 4.8 k/uL (1.3-7.7); Neutrophils % (A) 79 %; Platelet Count 253 k/uL (150-450); RBC 4.26 m/uL (4.30-5.90); RDW 14.6 % (11.5-15.5); WBC 6.1 k/uL (3.8-10.6)
[2022-05-02 10:56] LABS: Albumin 4.1 g/dL (3.5-5.0); Calcium 8.7 mg/dL (8.4-10.2); Potassium 4.2 mmol/L (3.5-5.1); Total Bilirubin 0.6 mg/dL (0.2-1.3); Total Protein 5.8 g/dL (6.3-8.2)
--- NOTE | 2022-05-02 10:57 | CT ---
EXAMINATION TYPE: CT brain cspine wo con CT DLP: 1416.6 mGycm, Automated exposure control for dose reduction was used. DATE OF EXAM: 05/02/2022 10:42 AM COMPARISON: CT brain C-spine 02/03/2022. CLINICAL INDICATION:Male, 66 years old with history of Trauma; fall TECHNIQUE: Brain: Multiple axial CT images of the brain were obtained without IV contrast. Cspine: Axial CT images from the skull base to the inferior aspect of T2 we obtained without intraven ous contrast. Coronal and sagittal reformatted images were also reviewed. FINDINGS: Brain: Extra-axial spaces: No abnormal extra-axial fluid collections. Ventricular system: Within normal limits Cerebral parenchyma: No acute intraparenchymal hemorrhage or mass effect. The lechuga-white junction is well differentiated. Cerebellum: Unremarkable. Mass effect: No evidence of midline shift. Intracranial vasculature: Atherosclerotic calcifications of the intracranial vessels. Soft tissues: Normal. Calvarium/osseous structures: No depressed skull fracture. Paranasal sinuses and mastoid air cells: Minimal mucosal thickening of the bilateral maxillary sinuse s. Visualized orbits: Orbital contents are intact. Cervical spine: Fracture: None. Osseous structures: Multilevel degenerative disc disease changes with endplate spurring and disc oste ophyte complex's. Vertebral alignment: Reversal of the normal cervical lordosis. Spinal canal/Neural Foramina: No evidence of significant spinal canal narrowing. Facet joint uncovert ebral joint arthropathy scattered throughout the cervical spine with varying degrees of neural forami nal stenosis. Neck soft tissues: Prevertebral soft tissues are within normal limits. Other: The airway is patent. The lung apices are clear. IMPRESSION: 1. No acute intracranial process. 2. No evidence of cervical spine fracture. 3. Moderate multilevel degenerative disc disease.
--- NOTE | 2022-05-02 10:59 | XR ---
EXAMINATION TYPE: XR chest 2V DATE OF EXAM: 05/02/2022 10:45 AM COMPARISON: Chest radiographs from 07/28/21. TECHNIQUE: XR chest 2V Frontal and lateral views of the chest. CLINICAL INDICATION:Male, 66 years old with history of Chest Pain; FINDINGS: Lungs/Pleura: There is no evidence of pleural effusion, focal consolidation, or pneumothorax. Pulmonary vascularity: Unremarkable. Heart/mediastinum: Cardiomediastinal silhouette is unremarkable. Musculoskeletal: No acute osseous pathology. IMPRESSION: No acute cardiopulmonary disease/process.
[2022-05-02 11:08] LABS: Prothrombin Time 10.9 sec (9.0-12.0)
[2022-05-02 11:09] LABS: Partial Thromboplastin Time 21.4 sec (22.0-30.0)
[2022-05-02 13:31] VITALS: BP 125/78; PULSE 70
== END 2022-05-02 13:35 | disposition home or self-care (01) ==
LOC: EC 09:53
DX: Z04.3 Encounter for examination and observation following other accident (principal); I10 Essential (primary) hypertension; Z79.899 Other long term (current) drug therapy; W18.09XA Striking against other object with subsequent fall, initial encounter
CPT/HCPCS: 36415; 70450; 71046; 72125; 80053; 83735; 84484; 85025; 85610; 85730; 93005; 96360; 96361; 99285

== ENCOUNTER 2022-07-04 09:29 | Inpatient (IN) | payer OTHER, MEDICARE ==
--- NOTE | 2022-07-04 09:44 | ED ---
General Adult HPI - General Source: EMS, RN notes reviewed Mode of arrival: EMS <Arelis Hamilton - Last Filed: 07/04/22 15:18> <Ronaldo Montenegro - Last Filed: 07/05/22 12:44> - General Chief complaint: Abdominal Pain Stated complaint: Abd pain Time Seen by Provider: 07/04/22 09:32 - History of Present Illness Initial comments: He 6-year-old male with history of renal cancer and schizophrenia coming into the emergency department for abdominal pain. Patient notes he has had a hernia on the right side that has been bothering him for a couple of days. He denies any recent heavy lifting or strenuous exercise to provoke the hernia. Denies any surgical history to correct his hernia in the past. States "I had a hernia a couple years ago." Pt last BM was yesterday and was normal for him. Denies fever, dizziness, nausea, vomiting, diarrhea, dysuria. (Arelis Hamilton) - Related Data Home Medications Medication Instructions Recorded Confirmed Acetaminophen Tab [Tylenol] 1,000 mg PO Q8H PRN MDD 6 TABS 12/09/20 07/04/22 Omeprazole 40 mg PO BID@0800,2100 12/09/20 07/04/22 Sertraline [Zoloft] 50 mg PO DAILY@0800 04/27/21 07/04/22 Aspirin 81 mg PO DAILY@1700 07/28/21 07/04/22 Metoprolol Tartrate [Lopressor] 25 mg PO DAILY@0800 07/28/21 07/04/22 Sennosides-Docusate Sodium 2 tab PO DAILY PRN 02/03/22 07/04/22 [Senokot-S] cloZAPine [Clozaril] 200 mg PO DAILY@1600 02/03/22 07/04/22 cloZAPine [Clozaril] 400 mg PO HS@2100 02/03/22 07/04/22 Atorvastatin [Lipitor] 80 mg PO HS@209907/04/22 07/04/22 Clopidogrel [Plavix] 75 mg PO DAILY@0800 07/04/22 07/04/22 Docusate [Colace] 100 mg PO BID@0800,2100 07/04/22 07/04/22 Losartan Potassium [Cozaar] 25 mg PO HS@209907/04/22 07/04/22 Tamsulosin [Flomax] 0.4 mg PO BID@0800,209907/04/22 07/04/22 cloZAPine [Clozaril] 100 mg PO DAILY@0800 07/04/22 07/04/22 clonazePAM [KlonoPIN] 1 mg PO BID@0800,209907/04/22 07/04/22 Allergies Allergy/AdvReac Type Severity Reaction Status Date / Time No Known Allergies Allergy Verified 07/04/22 12:21 Review of Systems ROS Other: All systems not noted in ROS Statement are negative. <Arelis Hamilton - Last Filed: 07/04/22 15:18> ROS Other: All systems not noted in ROS Statement are negative. <Ronaldo Montenegro - Last Filed: 07/05/22 12:44> ROS Statement: Those systems with pertinent positive or pertinent negative responses have been documented in the HPI. Past Medical History Past Medical History: Hypertension Additional Past Medical History / Comment(s): renal CA with surgery History of Any Multi-Drug Resistant Organisms: Unobtainable Past Surgical History: Heart Catheterization With Stent, Orthopedic Surgery Additional Past Surgical History / Comment(s): cryoablation for renal CA, Heart Catheterization 04/23/2021, Past Anesthesia/Blood Transfusion Reactions: No Reported Reaction Date of Last Stent Placement:: 04/23/21 Type of Cardiac Device: Biventricular Pacemaker, Unknown Device Placement Date:: unknown Past Psychological History: Schizophrenia Smoking Status: Never smoker Past Alcohol Use History: None Reported Past Drug Use History: None Reported - Past Family History Family Family Medical History: No Reported History <Arelis Hamilton - Last Filed: 07/04/22 15:18> General Exam Limitations: no limitations General appearance: alert, in no apparent distress Head exam: Present: atraumatic, normocephalic, normal inspection Eye exam: Present: normal appearance, PERRL, EOMI. Absent: scleral icterus, conjunctival injection, periorbital swelling ENT exam: Present: normal exam, mucous membranes moist Neck exam: Present: normal inspection. Absent: tenderness, meningismus, lymphad enopathy Respiratory exam: Present: normal lung sounds bilaterally. Absent: respiratory distress, wheezes, rales, rhonchi, stridor Cardiovascular Exam: Present: regular rate, normal rhythm, normal heart sounds. Absent: systolic murmur, diastolic murmur, rubs, gallop, clicks GI/Abdominal exam: Present: soft, normal bowel sounds. Absent: distended, tenderness, guarding, rebound, rigid Extremities exam: Present: normal inspection, full ROM, normal capillary refill. Absent: tenderness, pedal edema, joint swelling, calf tenderness Back exam: Present: normal inspection Neurological exam: Present: alert, oriented X3, CN II-XII intact Psychiatric exam: Present: normal affect, normal mood Skin exam: Present: warm, dry, intact, normal color. Absent: rash <Arelis Hamilton - Last Filed: 07/04/22 15:18> Course <Arelis Hamilton - Last Filed: 07/04/22 15:18> Vital Signs 07/04/22 07/04/22 07/04/22 09:38 12:25 18:27 Temperature 98.5 F Pulse Rate 73 69 66 Respiratory 16 15 15 Rate Blood Pressure 105/76 108/78 145/95 O2 Sat by Pulse 97 98 100 Oximetry - Reevaluation(s) Reevaluation #1: 07/04/22 11:18 Pt re-evaluated, updated on POC. All questions addressed. (Arelis Hamilton) Medical Decision Making - Lab Data Result diagrams: 07/04/22 10:00 07/04/22 10:00 <Arelis Hamilton - Last Filed: 07/04/22 15:18> - Lab Data Result diagrams: 07/04/22 10:00 07/04/22 10:00 <Ronaldo Montenegro - Last Filed: 07/05/22 12:44> - Medical Decision Making 66-year-old male humming in for abdominal pain. Pt had lab work and CT imaging ordered on the ED. I interpreted the following: CT imaging results remarkable for small bowel obstruction with focal transition point with a right inguinal hernia with mesenteric congestion and the region which may represent strangulation. Consult out to Dr. Espinoza who agrees to evaluate the patient in the ER and agrees to accept the patient for admission. Case discussed with Dr. Montenegro. (Arelis Hamilton) I did personally evaluate the patient. Patient has minimal hernia on exam with mild tenderness. Computed tomography scan is concerning and therefore surgery was contacted. (Ronaldo Montenegro) - Lab Data Lab Results 07/04/22 07/04/22 07/04/22 Range/Units 10:00 10:00 10:00 WBC 8.5 (3.8-10.6) k/uL RBC 4.34 (4.30-5.90) m/uL Hgb 12.5 L (13.0-17.5) gm/dL Hct 37.1 L (39.0-53.0) % MCV 85.5 (80.0-100.0) fL MCH 28.7 (25.0-35.0) pg MCHC 33.6 (31.0-37.0) g/dL RDW 15.7 H (11.5-15.5) % Plt Count 271 (150-450) k/uL MPV 7.9 Neutrophils % 83 % Lymphocytes % 8 % Monocytes % 6 % Eosinophils % 1 % Basophils % 0 % Neutrophils # 7.0 (1.3-7.7) k/uL Lymphocytes # 0.7 L (1.0-4.8) k/uL Monocytes # 0.5 (0-1.0) k/uL Eosinophils # 0.1 (0-0.7) k/uL Basophils # 0.0 (0-0.2) k/uL Sodium 132 L (137-145) mmol/L Potassium 4.5 (3.5-5.1) mmol/L Chloride 101 (98-107) mmol/L Carbon Dioxide 22 (22-30) mmol/L Anion Gap 9 mmol/L BUN 12 (9-20) mg/dL Creatinine 0.85 (0.66-1.25) mg/dL Est GFR (CKD-EPI)AfAm >90 (>60 ml/min/1.73 sqM) Est GFR (CKD-EPI)NonAf >90 (>60 ml/min/1.73 sqM) Glucose 122 H (74-99) mg/dL Plasma Lactic Acid Rene 1.1 (0.7-2.0) mmol/L Calcium 8.9 (8.4-10.2) mg/dL Total Bilirubin 0.6 (0.2-1.3) mg/dL AST 20 (17-59) U/L ALT 17 (4-49) U/L Alkaline Phosphatase 66 (38-126) U/L Total Protein 6.1 L (6.3-8.2) g/dL Albumin 4.1 (3.5-5.0) g/dL Disposition Time of Disposition: 11:19 <Arelis Hamilton - Last Filed: 07/04/22 15:18> <Ronaldo Montenegro - Last Filed: 07/05/22 12:44> Clinical Impression: Abdominal pain, Small bowel obstruction, Inguinal hernia Disposition: ADMITTED IP TO THIS HOSP Condition: Fair
[2022-07-04 10:09] LABS: Basophils % (A) 0 %; Eosinophils # (A) 0.1 k/uL (0-0.7); Eosinophils % (A) 1 %; HCT 37.1 % (39.0-53.0); HGB 12.5 gm/dL (13.0-17.5); Lymphocytes # (A) 0.7 k/uL (1.0-4.8); Lymphocytes % (A) 8 %; MCH 28.7 pg (25.0-35.0); MCHC 33.6 g/dL (31.0-37.0); MCV 85.5 fL (80.0-100.0); Mean Platelet Volume 7.9; Monocytes # (A) 0.5 k/uL (0-1.0); Monocytes % (A) 6 %; Neutrophils % (A) 83 %; Platelet Count 271 k/uL (150-450); RBC 4.34 m/uL (4.30-5.90); RDW 15.7 % (11.5-15.5); WBC 8.5 k/uL (3.8-10.6)
[2022-07-04 10:21] LABS: ALT 17 U/L (4-49); AST 20 U/L (17-59); African American GFR (CKD) >90 (>60 ml/min/1.73 sqM); Albumin 4.1 g/dL (3.5-5.0); Alkaline Phosphatase 66 U/L (38-126); Anion Gap 9 mmol/L; Blood Urea Nitrogen 12 mg/dL (9-20); Calcium 8.9 mg/dL (8.4-10.2); Carbon Dioxide 22 mmol/L (22-30); Chloride 101 mmol/L (98-107); Glucose 122 mg/dL (74-99); Non-African American GFR(CKD) >90 (>60 ml/min/1.73 sqM); Potassium 4.5 mmol/L (3.5-5.1); Sodium 132 mmol/L (137-145); Total Bilirubin 0.6 mg/dL (0.2-1.3); Total Protein 6.1 g/dL (6.3-8.2)
--- NOTE | 2022-07-04 10:44 | CT ---
EXAMINATION TYPE: CT abdomen pelvis wo con CT DLP: 736.4 mGycm, Automated exposure control for dose reduction was used. DATE OF EXAM: 07/04/2022 10:22 AM COMPARISON: CT abdomen pelvis most recent from 11/16/2021. CLINICAL INDICATION:Male, 66 years old with history of abdominal; Abdominal pain TECHNIQUE: Standard CT of the abdomen and pelvis without IV or oral contrast. Lack of IV or oral co ntrast limits evaluation of solid and hollow organ viscera. Coronal and sagittal reformats were perfo rmed. FINDINGS: LOWER CHEST: The lung bases are clear. Coronary arterial calcifications. ABDOMEN LIVER: Unremarkable noncontrast appearance GALLBLADDER AND BILE DUCTS: Unremarkable. PANCREAS: Unremarkable noncontrast appearance SPLEEN: Unremarkable noncontrast appearance ADRENAL GLANDS: Stable thickening of bilateral adrenal glands likely representing adrenal hyperplasia . KIDNEYS AND URETERS: No hydronephrosis. Similar focal cortical defect laterally with spherical calcif ication and fat deposition involving the right kidney . PELVIS BLADDER: Trabeculated urinary bladder with multiple diverticula. REPRODUCTIVE: Coarse calcifications of the prostate gland are identified. Mildly enlarged prostate gl and. ABDOMEN & PELVIS STOMACH AND BOWEL: Post surgical changes at the GE junction. Steatorrhea with moderate stool burden w ithin the colon. Right inguinal hernia containing small bowel loops with fluid. There is focal transi tion point of the small bowel exiting the hernia measuring up to 3 cm. No pneumatosis. Mesenteric con gestion identified within the hernia. The appendix is within normal limits. PERITONEUM: No evidence of pneumoperitoneum. Trace free fluid in the right inguinal hernia. VASCULATURE: Mild atherosclerotic calcifications are present throughout the abdominal aorta and its b ranches. No evidence of aortic aneurysm. Multiple pelvic phleboliths. MUSCULOSKELETAL: No acute osseous abnormalities. Multilevel Schmorl's nodes and degenerative disc dis ease most pronounced at L5-S1. LYMPH NODES: No gross evidence for lymphadenopathy. SOFT TISSUE/ABDOMINAL WALL: Small fat filled umbilical hernia. Moderate to large size right hilar her shannon containing small bowel with fluid and mesentery as described above. IMPRESSION: 1. Small bowel obstruction with focal transition point within a right inguinal hernia. There is edema and mesenteric congestion in this region which may represent strangulation. Clinical correlation is recommended. 2. Similar indeterminate lesion within the right kidney with calcification and fat deposition. Correl ate for any prior history of surgical intervention.
[2022-07-04] MEDS ORDERED: NALOXONE 0.4 MG/ML 1 ML VIAL IV PRN (11:19)
[2022-07-04] MEDS ORDERED: ONDANSETRON 4 MG/2 ML VIAL IVP PRN (11:19)
[2022-07-04] MEDS: HYDROmorphone 0.5 MG/0.5 ML SYRINGE IVP PRN ×2 (12:26→18:47)
[2022-07-04] MEDS: SODIUM CHLORIDE 0.9% 1,000 ML IV SCH (12:27)
[2022-07-04] MEDS ORDERED: SENNOSIDES-DOCUSATE SODIUM 1 EACH TAB PO PRN (15:10)
--- NOTE | 2022-07-04 15:39 | P.GSCN ---
History of Present Illness Consult date: 07/04/22 History of present illness: CHIEF COMPLAINT: Abdominal pain HISTORY OF PRESENT ILLNESS: This is a 66-year-old male with a known history of right inguinal hernia for the last few years. He presented to the hospital with complaints of right sided groin pain for the last 2-3 days with a bulge in the right groin. Patient denies any nausea or vomiting. Patient has had a history of needing the hernia reduced. Hernia has been reduced in the ER. Computed tomography scan abdomen and pelvis prior to the reduction had shown small bowel obstruction with focal transition point within the right inguinal hernia. There is edema and mesenteric congestion in this region which may represent strangulation. Patient does have a cardiac history with coronary disease and cardiac stent on Plavix. Patient seen and examined with Dr. kaplan PAST MEDICAL HISTORY: Schizophrenia, renal cancer with surgery, coronary disease with cardiac stent, pacemaker PAST SURGICAL HISTORY: See below MEDICATIONS: See below ALLERGIES: See below SOCIAL HISTORY: No illicit drug use. REVIEW OF SYSTEMS: CONSTITUTIONAL: Denies fever or chills. HEENT: Denies blurred vision, vision changes, or eye pain. Denies hemoptysis CARDIOVASCULAR: Denies chest pain or pressure. RESPIRATORY: No shortness of breath. GASTROINTESTINAL: See HPI for pertinent findings HEMATOLOGIC: Denies bleeding disorders. GENITOURINARY: Denies any blood in urine or increased urinary frequency. SKIN: Denies pruitis. Denies rash. PHYSICAL EXAM: VITAL SIGNS: Reviewed GENERAL: Well-developed in no acute distress. HEENT: No sclera icterus. Extraocular movements grossly intact. Moist buccal mucosa. Head is atraumatic, normocephalic. No nasal drainage. ABDOMEN: Soft. Nondistended. Tenderness with palpation in the right groin. Area is soft. Hernia has been reduced. NEUROLOGIC: Alert and oriented. Cranial nerves II through XII grossly intact. LABORATORY DATA: WBC 8.5 Hgb 12.5 platelets 271 Sodium 132 potassium is 4.5 creatinine 0.85 Lactic acid 1.1 IMAGING: Computed tomography scan abdomen and pelvis small bowel obstruction with focal transition point within the right inguinal hernia. There is edema and mesenteric congestion in this region which may represent strangulation. Similar indeterminate lesion within the right kidney with calcification in fact deposition. ASSESSMENT: 1. Right inguinal hernia with small bowel obstruction. Hernia has been reduced 2. History of coronary disease with cardiac stent on Plavix PLAN: -Open repair of right inguinal hernia scheduled for 07/06/[address] kaplan -Start full liquid diet -Consult cardiology for cardiac clearance -Consult medical service for medical management -Hold Plavix -Continue supportive care Physician Door Manager note has been reviewed by physician. Signing provider agrees with the documented findings, assessment, and plan of care. Past Medical History Past Medical History: Hypertension Additional Past Medical History / Comment(s): renal CA with surgery History of Any Multi-Drug Resistant Organisms: Unobtainable Past Surgical History: Heart Catheterization With Stent, Orthopedic Surgery Additional Past Surgical History / Comment(s): cryoablation for renal CA, Heart Catheterization 04/23/2021, Past Anesthesia/Blood Transfusion Reactions: No Reported Reaction Date of Last Stent Placement:: 04/23/21 Type of Cardiac Device: Biventricular Pacemaker, Unknown Device Placement Date:: unknown Past Psychological History: Schizophrenia Smoking Status: Never smoker Past Alcohol Use History: None Reported Past Drug Use History: None Reported - Past Family History Family Family Medical History: No Reported History Medications and Allergies Home Medications Medication Instructions Recorded Confirmed Type Acetaminophen Tab [Tylenol] 1,000 mg PO Q8H PRN MDD 6 TABS 12/09/20 07/04/22 History Omeprazole 40 mg PO BID@0800,209912/09/20 07/04/22 History Sertraline [Zoloft] 50 mg PO DAILY@0800 04/27/21 07/04/22 History Aspirin 81 mg PO DAILY@1700 07/28/21 07/04/22 History Metoprolol Tartrate [Lopressor] 25 mg PO DAILY@0800 07/28/21 07/04/22 History Sennosides-Docusate Sodium 2 tab PO DAILY PRN 02/03/22 07/04/22 History [Senokot-S] cloZAPine [Clozaril] 200 mg PO DAILY@1600 02/03/22 07/04/22 History cloZAPine [Clozaril] 400 mg PO HS@209902/03/22 07/04/22 History Atorvastatin [Lipitor] 80 mg PO HS@209907/04/22 07/04/22 History Clopidogrel [Plavix] 75 mg PO DAILY@0800 07/04/22 07/04/22 History Docusate [Colace] 100 mg PO BID@0800,209907/04/22 07/04/22 History Losartan Potassium [Cozaar] 25 mg PO HS@209907/04/22 07/04/22 History Tamsulosin [Flomax] 0.4 mg PO BID@799,209907/04/22 07/04/22 History cloZAPine [Clozaril] 100 mg PO DAILY@0800 07/04/22 07/04/22 History clonazePAM [KlonoPIN] 1 mg PO BID@799,209907/04/22 07/04/22 History Allergies Allergy/AdvReac Type Severity Reaction Status Date / Time No Known Allergies Allergy Verified 07/04/22 12:21 Surgical - Exam Vital Signs Temp Pulse Resp BP Pulse Ox 98.5 F 73 16 105/76 97 07/04/22 09:38 07/04/22 09:38 07/04/22 09:38 07/04/22 09:38 07/04/22 09:38 Results - Labs 07/04/22 10:00 07/04/22 10:00 Abnormal Lab Results - Last 24 Hours (Table) 07/04/22 07/04/22 Range/Units 10:00 10:00 Hgb 12.5 L (13.0-17.5) gm/dL Hct 37.1 L (39.0-53.0) % RDW 15.7 H (11.5-15.5) % Lymphocytes # 0.7 L (1.0-4.8) k/uL Sodium 132 L (137-145) mmol/L Glucose 122 H (74-99) mg/dL Total Protein 6.1 L (6.3-8.2) g/dL Diabetes panel 07/04/22 Range/Units 10:00 Sodium 132 L (137-145) mmol/L Potassium 4.5 (3.5-5.1) mmol/L Chloride 101 (98-107) mmol/L Carbon Dioxide 22 (22-30) mmol/L BUN 12 (9-20) mg/dL Creatinine 0.85 (0.66-1.25) mg/dL Glucose 122 H (74-99) mg/dL Calcium 8.9 (8.4-10.2) mg/dL AST 20 (17-59) U/L ALT 17 (4-49) U/L Alkaline Phosphatase 66 (38-126) U/L Total Protein 6.1 L (6.3-8.2) g/dL Albumin 4.1 (3.5-5.0) g/dL Calcium panel 07/04/22 Range/Units 10:00 Calcium 8.9 (8.4-10.2) mg/dL Albumin 4.1 (3.5-5.0) g/dL Pituitary panel 07/04/22 Range/Units 10:00 Sodium 132 L (137-145) mmol/L Potassium 4.5 (3.5-5.1) mmol/L Chloride 101 (98-107) mmol/L Carbon Dioxide 22 (22-30) mmol/L BUN 12 (9-20) mg/dL Creatinine 0.85 (0.66-1.25) mg/dL Glucose 122 H (74-99) mg/dL Calcium 8.9 (8.4-10.2) mg/dL Adrenal panel 07/04/22 Range/Units 10:00 Sodium 132 L (137-145) mmol/L Potassium 4.5 (3.5-5.1) mmol/L Chloride 101 (98-107) mmol/L Carbon Dioxide 22 (22-30) mmol/L BUN 12 (9-20) mg/dL Creatinine 0.85 (0.66-1.25) mg/dL Glucose 122 H (74-99) mg/dL Calcium 8.9 (8.4-10.2) mg/dL Total Bilirubin 0.6 (0.2-1.3) mg/dL AST 20 (17-59) U/L ALT 17 (4-49) U/L Alkaline Phosphatase 66 (38-126) U/L Total Protein 6.1 L (6.3-8.2) g/dL Albumin 4.1 (3.5-5.0) g/dL
[2022-07-04] MEDS: cloZAPine 100 MG TAB PO SCH ×2 (16:43→23:42)
[2022-07-04] MEDS: clonazePAM 1 MG TAB PO SCH (22:13)
[2022-07-04] MEDS: TAMSULOSIN 0.4 MG CAP.ER.24H PO SCH (22:14)
[2022-07-04] MEDS: PANTOPRAZOLE 40 MG TABLET PO SCH (22:14)
[2022-07-04] MEDS: ATORVASTATIN 80 MG TAB PO SCH (22:14)
--- NOTE | 2022-07-04 23:57 | P.CONS ---
History of Present Illness - Reason for Consult Consult date: 07/04/22 Medical management - Chief Complaint Abdominal pain - History of Present Illness Patient is a 66-year-old male with a known history of hypertension, history of coronary artery disease history of stent placement, cryoablation of renal cancer, history of biventricular pacemaker placement and schizophrenia presents ER with complaints of right groin pain for the past 2 to 3 days. Patient does have history of right inguinal hernia. Patient noted bulging in the right groin region and pain. Along with worsening pain. Denies any heavy lifting or resting with exercise. Patient has been having hernia for the past couple of years. Denies any complaints of diarrhea or constipation. Denies any fever or chills. No nausea vomiting. No dysuria hematuria. No chest pain or shortness of breath. CT abdomen and pelvis showed small bowel obstruction with focal transition point within the right inguinal hernia. There is edema and mesenteric congestion in this region which may represent strangulation. Correlate clinically. Similar inflammatory mid lesion within the right kidney with calcification and fat deposition. Correlate for any prior history of surgical intervention. Laboratory pressure WBC 8.5 hemoglobin 12.5 and platelets 271 Sodium 132 potassium 4.5 chloride 101 bicarbonate 22 BUN 12 and creatinine 0.85 and blood sugar is 122 Review of Systems Constitutional: Patient denies any fever or chills . no Generalized weakness. Abdomen: Patient denied any nausea or vomiting. Patient does complain of right inguinal pain and bulging in the area.. Cardiovascular: Patient denies any chest pain or short of breath no palpitations. Respiratory: patient denied any cough . no sputum production. No shortness of breath Neurologic: Patient denied any numbness or tingling headache. Musculoskeletal: Patient denies any complaints of joint swelling or deformity. Skin: Negative Psychiatric: Negative Endocrine: No heat or cold intolerance. No recent weight gain. Genitourinary: No dysuria or hematuria. All other 14 point ROS negative except the above Past Medical History Past Medical History: Hypertension Additional Past Medical History / Comment(s): renal CA with surgery History of Any Multi-Drug Resistant Organisms: Unobtainable Past Surgical History: Heart Catheterization With Stent, Orthopedic Surgery Additional Past Surgical History / Comment(s): cryoablation for renal CA, Heart Catheterization 04/23/2021, Past Anesthesia/Blood Transfusion Reactions: No Reported Reaction Date of Last Stent Placement:: 04/23/21 Type of Cardiac Device: Biventricular Pacemaker, Unknown Device Placement Date:: unknown Past Psychological History: Schizophrenia Smoking Status: Never smoker Past Alcohol Use History: None Reported Past Drug Use History: None Reported - Past Family History Family Family Medical History: No Reported History Medications and Allergies Home Medications Medication Instructions Recorded Confirmed Type Acetaminophen Tab [Tylenol] 1,000 mg PO Q8H PRN MDD 6 TABS 12/09/20 07/04/22 History Omeprazole 40 mg PO BID@0800,209912/09/20 07/04/22 History Sertraline [Zoloft] 50 mg PO DAILY@0800 04/27/21 07/04/22 History Aspirin 81 mg PO DAILY@1700 07/28/21 07/04/22 History Metoprolol Tartrate [Lopressor] 25 mg PO DAILY@0800 07/28/21 07/04/22 History Sennosides-Docusate Sodium 2 tab PO DAILY PRN 02/03/22 07/04/22 History [Senokot-S] cloZAPine [Clozaril] 200 mg PO DAILY@1600 02/03/22 07/04/22 History cloZAPine [Clozaril] 400 mg PO HS@209902/03/22 07/04/22 History Atorvastatin [Lipitor] 80 mg PO HS@209907/04/22 07/04/22 History Clopidogrel [Plavix] 75 mg PO DAILY@0800 07/04/22 07/04/22 History Docusate [Colace] 100 mg PO BID@0800,209907/04/22 07/04/22 History Losartan Potassium [Cozaar] 25 mg PO HS@209907/04/22 07/04/22 History Tamsulosin [Flomax] 0.4 mg PO BID@0800,209907/04/22 07/04/22 History cloZAPine [Clozaril] 100 mg PO DAILY@0800 07/04/22 07/04/22 History clonazePAM [KlonoPIN] 1 mg PO BID@0800,209907/04/22 07/04/22 History Allergies Allergy/AdvReac Type Severity Reaction Status Date / Time No Known Allergies Allergy Verified 07/04/22 12:21 Physical Exam Vitals: Vital Signs Temp Pulse Resp BP Pulse Ox 07/04/22 12:25 69 15 108/78 98 07/04/22 09:38 98.5 F 73 16 105/76 97 Intake and Output 07/04/22 07/04/22 07/04/22 06:59 14:59 22:59 Other: Weight 92.986 kg PHYSICAL EXAMINATION: Patient is lying in the bed comfortably, no acute distress, awake alert and oriented.. HEENT: Normocephalic. Neck is supple. Pupils reactive. Nostrils clear. Oral cavity is moist. Neck reveals no JVD, carotid bruits, or thyromegaly. CHEST EXAMINATION: Trachea is central. Symmetrical expansion. Lung david clear to auscultation and percussion. CARDIAC: Normal S1, S2 with no gallops. No murmurs ABDOMEN: Soft. Bowel sounds present. Nontender. No organomegaly. No abdominal bruits. Tenderness over the right inguinal region with minimal bulging noted. Extremities: reveal no edema. No clubbing or cyanosis Neurologically awake, alert, oriented x3 with well-coordinated movements. No focal deficits noted Skin: No rash or skin lesions. Psychiatric: Coperative. Nonsuicidal, Musculoskeletal: No joint swelling or deformity. Normal range of motion. Results CBC & Chem 7: 07/04/22 10:00 07/04/22 10:00 Labs: Abnormal Lab Results - Last 24 Hours (Table) 07/04/22 07/04/22 Range/Units 10:00 10:00 Hgb 12.5 L (13.0-17.5) gm/dL Hct 37.1 L (39.0-53.0) % RDW 15.7 H (11.5-15.5) % Lymphocytes # 0.7 L (1.0-4.8) k/uL Sodium 132 L (137-145) mmol/L Glucose 122 H (74-99) mg/dL Total Protein 6.1 L (6.3-8.2) g/dL Assessment and Plan Assessment: Right inguinal hernia with strangulated small bowel and SBO. Hernia was reduced in ER. Coronary disease history of stent placement to mid RCA on 04/30/2021 Schizophrenia Hypertension History of renal cancer status post cryoablation GI and DVT prophylaxis Plan: Patient will be continued on telemetry monitoring. Continue gentle IV hydration. General surgery has seen the patient and Planning for hernia repair on Thursday. Aspirin Plavix on hold currently. Continue with statins and beta-blockers. Continue with his psychiatric medications and follow closely. Cardiology was consulted for clearance. We will continue to follow and further recommendations based on clinical course. Thank you for your consult. Time with Patient: Greater than 30
[2022-07-05] MEDS: HEPARIN SODIUM,PORCINE/PF 5,000 UNIT/0.5 ML SYRINGE SQ SCH ×4 (01:50→23:59)
[2022-07-05] MEDS: SODIUM CHLORIDE 0.9% 1,000 ML IV SCH ×2 (01:50→09:07)
--- NOTE | 2022-07-05 08:33 | P.CRDCN ---
History of Present Illness Consult date: 07/05/22 Chief complaint: Abdominal discomfort History of present illness: The patient is a pleasant 66-year-old gentleman with a past medical history sig nificant for CAD with prior stenting of the RCA was performed by Dr. Vazquez in the past as well as hypertension and dyslipidemia who was admitted to the hospital with abdominal discomfort and he was inguinal hernia and he is in process of having surgery. We consulted to see the patient for preoperative cardiac assessment before noncardiac surgery. The patient somewhat is a poor historian but he seems to be asymptomatic from the cardiac standpoint of view. He reports no pain in the chest and no shortness of breath and no dizziness or lightheadedness and no feeling of heart racing or fluttering or presyncope or syncope. The patient underwent stenting of the RCA in 2020 and it has been more than a year since he underwent the stent. Hemodynamically the patient is stable. Clinically he is stable. From the cardiovascular standpoint of view, the patient can proceed with the inguinal hernia surgery. No need for any further cardiac testing. Meanwhile the Plavix can be stopped since it has been a year since he underwent a stenting and we will continue daily aspirin only. Past Medical History Past Medical History: Hypertension Additional Past Medical History / Comment(s): renal CA with surgery History of Any Multi-Drug Resistant Organisms: Unobtainable Past Surgical History: Heart Catheterization With Stent, Orthopedic Surgery Additional Past Surgical History / Comment(s): cryoablation for renal CA, Heart Catheterization 04/23/2021, Past Anesthesia/Blood Transfusion Reactions: No Reported Reaction Date of Last Stent Placement:: 04/23/21 Type of Cardiac Device: Biventricular Pacemaker, Unknown Device Placement Date:: unknown Past Psychological History: Schizophrenia Smoking Status: Never smoker Past Alcohol Use History: None Reported Past Drug Use History: None Reported - Past Family History Family Family Medical History: No Reported History Medications and Allergies Home Medications Medication Instructions Recorded Confirmed Type Acetaminophen Tab [Tylenol] 1,000 mg PO Q8H PRN MDD 6 TABS 12/09/20 07/04/22 History Omeprazole 40 mg PO BID@0800,2100 12/09/20 07/04/22 History Sertraline [Zoloft] 50 mg PO DAILY@0800 04/27/21 07/04/22 History Aspirin 81 mg PO DAILY@1700 07/28/21 07/04/22 History Metoprolol Tartrate [Lopressor] 25 mg PO DAILY@0800 07/28/21 07/04/22 History Sennosides-Docusate Sodium 2 tab PO DAILY PRN 02/03/22 07/04/22 History [Senokot-S] cloZAPine [Clozaril] 200 mg PO DAILY@1600 02/03/22 07/04/22 History cloZAPine [Clozaril] 400 mg PO HS@209902/03/22 07/04/22 History Atorvastatin [Lipitor] 80 mg PO HS@209907/04/22 07/04/22 History Clopidogrel [Plavix] 75 mg PO DAILY@0800 07/04/22 07/04/22 History Docusate [Colace] 100 mg PO BID@0800,209907/04/22 07/04/22 History Losartan Potassium [Cozaar] 25 mg PO HS@209907/04/22 07/04/22 History Tamsulosin [Flomax] 0.4 mg PO BID@0800,209907/04/22 07/04/22 History cloZAPine [Clozaril] 100 mg PO DAILY@0800 07/04/22 07/04/22 History clonazePAM [KlonoPIN] 1 mg PO BID@0800,209907/04/22 07/04/22 History Allergies Allergy/AdvReac Type Severity Reaction Status Date / Time No Known Allergies Allergy Verified 07/04/22 12:21 Physical Exam Vitals: Vital Signs Temp Pulse Pulse Resp BP BP Pulse Ox 07/05/22 02:41 97.3 F L 67 18 128/82 96 07/04/22 21:48 97.4 F L 65 16 155/91 98 07/04/22 18:27 66 15 145/95 100 07/04/22 12:25 69 15 108/78 98 07/04/22 09:38 98.5 F 73 16 105/76 97 Intake and Output 07/04/22 07/05/22 07/05/22 22:59 06:59 14:59 Intake Total 200 Output Total 350 Balance 200 -350 Intake: Oral 200 Output: Urine 350 Other: Voiding Method Urinal Weight 92.986 kg - Constitutional General appearance: no acute distress - Respiratory Respiratory: bilateral: CTA - Cardiovascular Rhythm: regular Heart sounds: normal: S1, S2 Results 07/04/22 10:00 07/04/22 10:00 Cardiac Enzymes 07/04/22 Range/Units 10:00 AST 20 (17-59) U/L CBC 07/04/22 Range/Units 10:00 WBC 8.5 (3.8-10.6) k/uL RBC 4.34 (4.30-5.90) m/uL Hgb 12.5 L (13.0-17.5) gm/dL Hct 37.1 L (39.0-53.0) % Plt Count 271 (150-450) k/uL Comprehensive Metabolic Panel 07/04/22 Range/Units 10:00 Sodium 132 L (137-145) mmol/L Potassium 4.5 (3.5-5.1) mmol/L Chloride 101 (98-107) mmol/L Carbon Dioxide 22 (22-30) mmol/L BUN 12 (9-20) mg/dL Creatinine 0.85 (0.66-1.25) mg/dL Glucose 122 H (74-99) mg/dL Calcium 8.9 (8.4-10.2) mg/dL AST 20 (17-59) U/L ALT 17 (4-49) U/L Alkaline Phosphatase 66 (38-126) U/L Total Protein 6.1 L (6.3-8.2) g/dL Albumin 4.1 (3.5-5.0) g/dL Current Medications Generic Name Dose Route Start Last Admin Trade Name Freq PRN Reason Stop Dose Admin Atorvastatin Calcium 80 mg 07/04/22 21:00 07/04/22 22:14 Atorvastatin 80 Mg Tab PO 80 mg HS@2100 JEAN Administration Clonazepam 1 mg 07/04/22 21:00 07/04/22 22:13 Clonazepam 1 Mg Tab PO 1 mg BID@0800,2100 JEAN Administration Clozapine 100 mg 07/05/22 08:00 Clozapine 100 Mg Tab PO 07/09/22 23:00 DAILY@0800 JEAN Clozapine 200 mg 07/04/22 16:00 07/04/22 16:43 Clozapine 100 Mg Tab PO 07/09/22 23:00 200 mg DAILY@1600 JEAN Administration Clozapine 400 mg 07/04/22 21:00 07/04/22 23:42 Clozapine 100 Mg Tab PO 07/09/22 23:00 400 mg HS@2100 JEAN Administration Heparin Sodium (Porcine) 5,000 unit 07/05/22 00:00 07/05/22 01:50 Heparin Sodium,Porcine/Pf 5,000 Unit/0.5 Ml Syringe SQ 5,000 unit Q8HR JEAN Administration Hydromorphone HCl 0.5 mg 07/04/22 11:19 07/04/22 18:47 Hydromorphone 0.5 Mg/0.5 Ml Syringe IVP 0.5 mg Q3HR PRN Administration Moderate Pain (Scale 4 to 6) Sodium Chloride 1,000 mls @ 75 mls/hr 07/04/22 11:30 07/05/22 01:50 Saline 0.9% IV 75 mls/hr .[id number] JEAN Administration Metoprolol Tartrate 25 mg 07/05/22 08:00 Metoprolol Tartrate 25 Mg Tab PO DAILY@0800 [facility] Naloxone HCl 0.2 mg 07/04/22 11:19 Naloxone 0.4 Mg/Ml 1 Ml Vial IV Q2M PRN Opioid Reversal Ondansetron HCl 4 mg 07/04/22 11:19 Ondansetron 4 Mg/2 Ml Vial IVP Q8HR PRN Nausea And Vomiting Pantoprazole Sodium 40 mg 07/04/22 21:00 07/04/22 22:14 Pantoprazole 40 Mg Tablet PO 40 mg BID@0800,2100 [facility] Administration Senna/Docusate Sodium 2 each 07/04/22 15:10 Sennosides-Docusate Sodium 1 Each Tab PO DAILY PRN Constipation Sertraline HCl 50 mg 07/05/22 08:00 Sertraline 50 Mg Tab PO DAILY@0800 [facility] Tamsulosin HCl 0.4 mg 07/04/22 21:00 07/04/22 22:14 Tamsulosin 0.4 Mg Cap.Er.24h PO 0.4 mg BID@0800,2100 [facility] Administration Intake and Output 07/04/22 07/05/22 07/05/22 22:59 06:59 14:59 Intake Total 200 Output Total 350 Balance 200 -350 Intake: Oral 200 Output: Urine 350 Other: Voiding Method Urinal Weight 92.986 kg 07/04/22 10:00 07/04/22 10:00 Assessment and Plan Assessment: Assessment Right inguinal hernia Abdominal discomfort secondary to the above CAD with prior stenting of the RCA in April 2021 Hypertension Dyslipidemia Plan The patient is asymptomatic He is hemodynamically stable He is not in any overt heart failure No evidence of cardiac arrhythmia No symptoms of chest pain or chest discomfort The patient can proceed with the surgery Restart the patient back on antiplatelet with aspirin after the surgery
[2022-07-05] MEDS: clonazePAM 1 MG TAB PO SCH ×2 (09:07→20:35)
[2022-07-05] MEDS: SERTRALINE 50 MG TAB PO SCH (09:07)
[2022-07-05] MEDS: TAMSULOSIN 0.4 MG CAP.ER.24H PO SCH ×2 (09:07→20:35)
[2022-07-05] MEDS: METOPROLOL TARTRATE 25 MG TAB PO SCH (09:07)
[2022-07-05] MEDS: PANTOPRAZOLE 40 MG TABLET PO SCH ×2 (09:07→20:35)
[2022-07-05] MEDS: cloZAPine 100 MG TAB PO SCH ×3 (09:07→20:35)
--- NOTE | 2022-07-05 11:07 | P.PN ---
Progress Note - Text Progress Note Date: 07/05/22 Patient feels better today. He was a diabetic cardiology. On exam vessels are still. Abdomen soft. History of incarcerated right we'll hernia. Patient undergo open repair on Thursday.
[2022-07-05] MEDS: HYDROmorphone 0.5 MG/0.5 ML SYRINGE IVP PRN ×3 (11:21→20:42)
[2022-07-05] MEDS: ATORVASTATIN 80 MG TAB PO SCH (20:35)
[2022-07-06] MEDS: SODIUM CHLORIDE 0.9% 1,000 ML IV SCH ×2 (04:36→16:06)
[2022-07-06] MEDS: SERTRALINE 50 MG TAB PO SCH (08:00)
[2022-07-06] MEDS: TAMSULOSIN 0.4 MG CAP.ER.24H PO SCH ×2 (08:00→20:13)
[2022-07-06] MEDS: clonazePAM 1 MG TAB PO SCH ×2 (08:00→20:13)
[2022-07-06] MEDS: HEPARIN SODIUM,PORCINE/PF 5,000 UNIT/0.5 ML SYRINGE SQ SCH ×3 (08:00→23:27)
[2022-07-06] MEDS: METOPROLOL TARTRATE 25 MG TAB PO SCH (08:00)
[2022-07-06] MEDS: cloZAPine 100 MG TAB PO SCH ×3 (08:00→20:13)
[2022-07-06] MEDS: PANTOPRAZOLE 40 MG TABLET PO SCH ×2 (08:00→20:13)
[2022-07-06] MEDS: HYDROmorphone 0.5 MG/0.5 ML SYRINGE IVP PRN ×3 (08:34→20:11)
--- NOTE | 2022-07-06 10:30 | P.PN ---
Subjective Progress Note Date: 07/06/22 Principal diagnosis: CAD The patient is a pleasant 66-year-old gentleman with a past medical history significant for CAD with prior stenting of the RCA was performed by Dr. Vazquez in the past as well as hypertension and dyslipidemia who was admitted to the hospital with abdominal discomfort and he was inguinal hernia and he is in process of having surgery. We consulted to see the patient for preoperative cardiac assessment before noncardiac surgery. The patient somewhat is a poor historian but he seems to be asymptomatic from the cardiac standpoint of view. He reports no pain in the chest and no shortness of breath and no dizziness or lightheadedness and no feeling of heart racing or fluttering or presyncope or syncope. The patient underwent stenting of the RCA in 2020 and it has been more than a year since he underwent the stent. Hemodynamically the patient is stable. Clinically he is stable. From the cardiovascular standpoint of view, the patient can proceed with the inguinal hernia surgery. No need for any further cardiac testing. Meanwhile the Plavix can be stopped since it has been a year since he underwent a stenting and we will continue daily aspirin only. July 062021 The patient was seen this morning. He remains asymptomatic from a cardiovascular standpoint of view, and he remains also hemodynamically stable. He reports no pain in the chest and no shortness of breath and no dizziness or lightheadedness and no feeling of heart racing or fluttering or presyncope or syncope. Antiplatelets are on hold at this point. From the cardiovascular standpoint of view, the patient is stable to undergo the hernia surgery tomorrow. Objective - Vital Signs Vital signs: Vital Signs Temp 97.9 F 07/06/22 08:00 Pulse 71 07/06/22 08:00 Resp 19 07/06/22 08:00 BP 120/80 07/06/22 08:00 Pulse Ox 99 07/06/22 08:00 FiO2 Intake & Output 07/05/22 07/06/22 07/06/22 18:59 06:59 18:59 Intake Total 1680 Output Total 950 2175 Balance 730 -2175 Intake: Intake, IV Titration 600 Amount Sodium Chloride 0.9% 1, 600 000 ml @ 75 mls/hr IV . [id number] [facility] Rx#:[id number] Oral 1080 Output: Urine 950 2175 Other: Voiding Method Urinal - Constitutional General appearance: Present: no acute distress - Respiratory Respiratory: bilateral: CTA - Cardiovascular Rhythm: regular Heart sounds: normal: S1, S2 - Labs CBC & Chem 7: 07/04/22 10:00 07/04/22 10:00 Assessment and Plan Assessment: Assessment Right inguinal hernia Abdominal discomfort secondary to the above CAD with prior stenting of the RCA in April 2021 Hypertension Dyslipidemia Plan The patient is asymptomatic He is hemodynamically stable He is not in any overt heart failure No evidence of cardiac arrhythmia No symptoms of chest pain or chest discomfort The patient can proceed with the surgery Restart the patient back on antiplatelet with aspirin after the surgery
--- NOTE | 2022-07-06 11:07 | P.PN ---
Progress Note - Text Progress Note Date: 07/06/22 Patient's resting in his Bed comfortably. He has minimal right inguinal pain. On exam vital signs are stable. Abdomen soft. Right inguinal hernia is reducible. Patient will be scheduled for open repair of radial hernia tomorrow.
[2022-07-06] MEDS: ATORVASTATIN 80 MG TAB PO SCH (20:13)
--- NOTE | 2022-07-07 00:45 | P.PN ---
Subjective Progress Note Date: 07/05/22 Patient is a 66-year-old male with a known history of hypertension, history of coronary artery disease history of stent placement, cryoablation of renal cancer, history of biventricular pacemaker placement and schizophrenia presents ER with complaints of right groin pain for the past 2 to 3 days. Patient does have history of right inguinal hernia. Patient noted bulging in the right groin region and pain. Along with worsening pain. Denies any heavy lifting or resting with exercise. Patient has been having hernia for the past couple of years. Denies any complaints of diarrhea or constipation. Denies any fever or chills. No nausea vomiting. No dysuria hematuria. No chest pain or shortness of breath. CT abdomen and pelvis showed small bowel obstruction with focal transition point within the right inguinal hernia. There is edema and mesenteric congestion in this region which may represent strangulation. Correlate clinically. Similar inflammatory mid lesion within the right kidney with calcification and fat deposition. Correlate for any prior history of surgical intervention. Laboratory pressure WBC 8.5 hemoglobin 12.5 and platelets 271 Sodium 132 potassium 4.5 chloride 101 bicarbonate 22 BUN 12 and creatinine 0.85 and blood sugar is 122 07/05/2022 Patient is currently lying in the bed. Awake alert and oriented x3. No complaints of chest pain or shortness breath. Patient is cleared from cardiology standpoint for right inguinal hernia repair. No signs of nausea or vomiting. Tolerating oral diet. No cough or sputum production. No other acute overnight issues. Laboratory data reviewed. Current medications reviewed. Objective - Vital Signs Vital signs: Vital Signs Temp 97.8 F 07/05/22 08:11 Pulse 73 07/05/22 08:11 Resp 16 07/05/22 08:11 BP 129/83 07/05/22 08:11 Pulse Ox 97 07/05/22 08:11 FiO2 Intake & Output 07/04/22 07/05/22 07/05/22 18:59 06:59 18:59 Intake Total 200 Output Total 350 Balance 200 -350 Weight 92.986 kg Intake: Oral 200 Output: Urine 350 Other: Voiding Method Urinal - Exam PHYSICAL EXAMINATION: Patient is lying in the bed comfortably, no acute distress, awake alert and oriented.. HEENT: Normocephalic. Neck is supple. Pupils reactive. Nostrils clear. Oral cavity is moist. Neck reveals no JVD, carotid bruits, or thyromegaly. CHEST EXAMINATION: Trachea is central. Symmetrical expansion. Lung david clear to auscultation and percussion. CARDIAC: Normal S1, S2 with no gallops. No murmurs ABDOMEN: Soft. Bowel sounds present. Nontender. No organomegaly. No abdominal bruits. Tenderness over the right inguinal region with minimal bulging noted. Extremities: reveal no edema. No clubbing or cyanosis Neurologically awake, alert, oriented x3 with well-coordinated movements. No focal deficits noted Skin: No rash or skin lesions. Psychiatric: Coperative. Nonsuicidal, Musculoskeletal: No joint swelling or deformity. Normal range of motion. - Labs CBC & Chem 7: 07/04/22 10:00 07/04/22 10:00 Assessment and Plan Assessment: Right inguinal hernia with strangulated small bowel and SBO. Hernia was reduced in ER. Coronary disease history of stent placement to mid RCA on 04/30/2021 Schizophrenia Hypertension History of renal cancer status post cryoablation GI and DVT prophylaxis Plan: Patient will be continued on telemetry monitoring. Continue gentle IV hydration. GPatient is cleared by cardiology to proceed with surgery. Planning for hernia repair on Thursday. Aspirin Plavix on hold currently. Continue with statins and beta-blockers. Continue with his psychiatric medications and follow closely. We will continue to follow and further recommendations based on clinical course. Time with Patient: Greater than 30
--- NOTE | 2022-07-07 00:45 | P.PN ---
Subjective Progress Note Date: 07/06/22 Patient is a 66-year-old male with a known history of hypertension, history of coronary artery disease history of stent placement, cryoablation of renal cancer, history of biventricular pacemaker placement and schizophrenia presents ER with complaints of right groin pain for the past 2 to 3 days. Patient does have history of right inguinal hernia. Patient noted bulging in the right groin region and pain. Along with worsening pain. Denies any heavy lifting or resting with exercise. Patient has been having hernia for the past couple of years. Denies any complaints of diarrhea or constipation. Denies any fever or chills. No nausea vomiting. No dysuria hematuria. No chest pain or shortness of breath. CT abdomen and pelvis showed small bowel obstruction with focal transition point within the right inguinal hernia. There is edema and mesenteric congestion in this region which may represent strangulation. Correlate clinically. Similar inflammatory mid lesion within the right kidney with calcification and fat deposition. Correlate for any prior history of surgical intervention. Laboratory pressure WBC 8.5 hemoglobin 12.5 and platelets 271 Sodium 132 potassium 4.5 chloride 101 bicarbonate 22 BUN 12 and creatinine 0.85 and blood sugar is 122 07/05/2022 Patient is currently lying in the bed. Awake alert and oriented x3. No complaints of chest pain or shortness breath. Patient is cleared from cardiology standpoint for right inguinal hernia repair. No signs of nausea or vomiting. Tolerating oral diet. No cough or sputum production. No other acute overnight issues. Laboratory data reviewed. 07/06/2022 Patient is currently lying in the bed. Awake alert and oriented x3. Able to tolerate oral diet. Denies any complaints of chest pain or shortness of breath. No abdominal pain. Did have bowel movement. No cough or sputum production. Patient is scheduled for inguinal repair tomorrow by general surgery. Current medications reviewed. Objective - Vital Signs Vital signs: Vital Signs Temp 97.4 F L 07/06/22 19:29 Pulse 80 07/06/22 19:29 Resp 20 07/06/22 19:29 BP 118/62 07/06/22 19:29 Pulse Ox 100 07/06/22 19:29 FiO2 Intake & Output 07/06/22 07/06/22 07/07/22 06:59 18:59 06:59 Intake Total 600 Output Total 2175 Balance -2175 600 Intake: Intake, IV Titration 600 Amount Sodium Chloride 0.9% 1, 600 000 ml @ 75 mls/hr IV . [id number] [facility] Rx#:[id number] Output: Urine 2175 Other: Voiding Method Urinal Toilet Urinal # Bowel Movements 1 - Exam PHYSICAL EXAMINATION: Patient is lying in the bed comfortably, no acute distress, awake alert and orie nted.. HEENT: Normocephalic. Neck is supple. Pupils reactive. Nostrils clear. Oral cavity is moist. Neck reveals no JVD, carotid bruits, or thyromegaly. CHEST EXAMINATION: Trachea is central. Symmetrical expansion. Lung david clear to auscultation and percussion. CARDIAC: Normal S1, S2 with no gallops. No murmurs ABDOMEN: Soft. Bowel sounds present. Nontender. No organomegaly. No abdominal bruits. Tenderness over the right inguinal region with minimal bulging noted. Extremities: reveal no edema. No clubbing or cyanosis Neurologically awake, alert, oriented x3 with well-coordinated movements. No focal deficits noted Skin: No rash or skin lesions. Psychiatric: Coperative. Nonsuicidal, Musculoskeletal: No joint swelling or deformity. Normal range of motion. - Labs CBC & Chem 7: 07/04/22 10:00 07/04/22 10:00 Assessment and Plan Assessment: Right inguinal hernia with strangulated small bowel and SBO. Hernia was reduced in ER. Coronary disease history of stent placement to mid RCA on 04/30/2021 Schizophrenia Hypertension History of renal cancer status post cryoablation GI and DVT prophylaxis Plan: Patient will be continued on telemetry monitoring. Continue gentle IV hydration. GPatient is cleared by cardiology to proceed with surgery. Planning for hernia repair on Thursday. Aspirin Plavix on hold currently. Continue with statins and beta-blockers. Continue with his psychiatric medi cations and follow closely. We will continue to follow and further recommendations based on clinical course. Time with Patient: Greater than 30
[2022-07-07] MEDS: HYDROmorphone 0.5 MG/0.5 ML SYRINGE IVP PRN (03:06)
[2022-07-07] MEDS: HEPARIN SODIUM,PORCINE/PF 5,000 UNIT/0.5 ML SYRINGE SQ SCH ×2 (08:26→14:10)
[2022-07-07] MEDS: PANTOPRAZOLE 40 MG TABLET PO SCH ×2 (08:28→20:49)
[2022-07-07] MEDS: TAMSULOSIN 0.4 MG CAP.ER.24H PO SCH ×2 (08:28→20:49)
[2022-07-07] MEDS: METOPROLOL TARTRATE 25 MG TAB PO SCH (08:28)
[2022-07-07] MEDS: SERTRALINE 50 MG TAB PO SCH (08:28)
[2022-07-07] MEDS: clonazePAM 1 MG TAB PO SCH ×2 (08:28→20:49)
[2022-07-07] MEDS: cloZAPine 100 MG TAB PO SCH ×3 (08:29→20:49)
[2022-07-07] MEDS: SODIUM CHLORIDE 0.9% 1,000 ML IV SCH ×2 (08:31→17:03)
--- NOTE | 2022-07-07 08:59 | P.PN ---
Subjective Progress Note Date: 07/07/22 History of present illness: The patient is a pleasant 66-year-old gentleman with a past medical history si gnificant for CAD with prior stenting of the RCA was performed by Dr. Vazquez in the past as well as hypertension and dyslipidemia who was admitted to the hospital with abdominal discomfort and he was inguinal hernia and he is in process of having surgery. We consulted to see the patient for preoperative cardiac assessment before noncardiac surgery. The patient somewhat is a poor historian but he seems to be asymptomatic from the cardiac standpoint of view. He reports no pain in the chest and no shortness of breath and no dizziness or lightheadedness and no feeling of heart racing or fluttering or presyncope or syncope. The patient underwent stenting of the RCA in 2020 and it has been more than a year since he underwent the stent. Hemodynamically the patient is stable. Clinically he is stable. From the cardiovascular standpoint of view, the patient can proceed with the inguinal hernia surgery. No need for any further cardiac testing. Meanwhile the Plavix can be stopped since it has been a year since he underwent a stenting and we will continue daily aspirin only. July [id number] The patient was seen this morning. He remains asymptomatic from a cardiovascular standpoint of view, and he remains also hemodynamically stable. He reports no pain in the chest and no shortness of breath and no dizziness or lightheadedness and no feeling of heart racing or fluttering or presyncope or syncope. Antiplatelets are on hold at this point. From the cardiovascular standpoint of view, the patient is stable to undergo the hernia surgery tomorrow. 07/07 No new concerns from the patient today. He states he is scheduled for surgery this afternoon. No chest pain or shortness of breath. Physical examination: Gen: This is a 66-year-old obese male. He is resting but appears to be comfortable. VS: Reviewed HEENT: Head is atraumatic, normocephalic. Pupils equal, round. Sclerae is anicteric. NECK: Supple. No JVD. No lymphadenopathy. No thyromegaly. LUNGS: Clear to auscultation. No wheezes or rhonchi. No intercostal retractions. HEART: Regular rate and rhythm. No murmur. ABDOMEN: Soft. Bowel sounds are present. No masses. No tenderness. EXTREMITIES: No pedal edema. No calf tenderness. NEUROLOGICAL: Patient is awake, alert and oriented x3. Assessment: Right inguinal hernia Abdominal discomfort secondary to the above CAD with prior stenting of the RCA in April 2021 Hypertension Dyslipidemia Plan The patient is asymptomatic He is hemodynamically stable He is not in any overt heart failure No evidence of cardiac arrhythmia No symptoms of chest pain or chest discomfort The patient can proceed with the surgery Restart the patient back on antiplatelet with aspirin after the surgery Nurse practitioner note has been reviewed, I agree with documented findings and plan of care. Patient was seen and examined. Objective - Vital Signs Vital signs: Vital Signs Temp 97.5 F L 07/07/22 00:19 Pulse 67 07/07/22 00:19 Resp 18 07/07/22 00:19 BP 127/81 07/07/22 00:19 Pulse Ox 97 07/07/22 00:19 FiO2 Intake & Output 07/06/22 07/07/22 07/07/22 18:59 06:59 18:59 Intake Total 600 Balance 600 Intake: Intake, IV Titration 600 Amount Sodium Chloride 0.9% 1, 600 000 ml @ 75 mls/hr IV . [id number] [facility] Rx#:[id number] Other: Voiding Method Toilet Urinal # Voids 4 # Bowel Movements 1 1 - Labs CBC & Chem 7: 07/04/22 10:00 07/04/22 10:00
[2022-07-07 09:01] LABS: African American GFR (CKD) 102.1 (60.0-200.0); Anion Gap 6.2 mmol/L (10.00-18.00); BUN/Creat Ratio 7.67 Ratio (12.00-20.00); Blood Urea Nitrogen 6.9 mg/dL (9.0-27.0); Calcium 9.4 mg/dL (8.7-10.3); Carbon Dioxide 31.8 mmol/L (20.0-27.5); Non-African American GFR(CKD) 88.1 (60.0-200.0); Potassium 4.7 mmol/L (3.5-5.5)
[2022-07-07] MEDS ORDERED: LACTATED RINGERS 1,000 ML IV ONE (13:49)
[2022-07-07] MEDS ORDERED: ONDANSETRON 4 MG/2 ML VIAL IVP ONE (14:11)
[2022-07-07] MEDS ORDERED: SODIUM CHLORIDE 0.9% 50 ML with ceFAZolin 2,000 MG IV ONE ×2 (14:52)
[2022-07-07] MEDS ORDERED: BUPIVACAIN-EPI 0.25%-1:200,000 30 ML VIAL SQ ONE ×2 (14:57→15:10)
[2022-07-07] MEDS ORDERED: ACETAMINOPHEN IV (For NPO) 1,000 MG in SALINE 1 100ML.BAG IVPB STA (15:31)
[2022-07-07] MEDS ORDERED: HYDROmorphone 1 MG/ML 1 ML SYRINGE IVP PRN (15:31)
--- NOTE | 2022-07-07 15:31 | P.OP ---
Date of Procedure: 07/07/22 Preoperative Diagnosis: Incarcerated right inguinal hernia Postoperative Diagnosis: Incarcerated right inguinal hernia Procedure(s) Performed: (Incarcerated right we'll hernia Cord lipoma excision Anesthesia: WEROA Surgeon: Jani Marcos Estimated Blood Loss (ml): 5 Pathology: other (Right cord lipoma, hernia sac) Condition: stable Disposition: PACU Description of Procedure: DESCRIPTION OF PROCEDURE: The patient was placed in the supine position after receiving adequate anesthesia. Patients groin was prepped and draped in the usual sterile fashion. A standard hernia incision was made and the subcutaneous tissues were divided with electrocautery. The fascia of the external oblique was exposed. A francisco the fascia was made with #15 blade. The fascia was then opened with pair of Metzenbaum scissors. A Weitlaner retractor was placed in the wound and the cord structures were grasped and dissected free from the inguinal canal. A rubber [place] drain was placed around the cord structures. The hernial sac was seen on the anterior-medial portion of the cord and this was dissected free from the cord. The hernia sac was then underwent high ligation with 0 Vicryl and the specimen sent to pathology. The proximal cord lipoma. This was dissected free and sent to pathology.. Using blunt finger dissection, the preperitoneal space was dissected and then the Prolene hernial mesh plug was placed into the prepared space. The inferior leaf was expanded. The superior leaf was secured to the pubic tubercle using 2-0 Prolene suture. The lateral portion of the superior leaf was incised and cords tied and secured to the transversalis fascia using 2- 0 Prolene suture. Fascia of the external oblique was then closed using #0 Vicryl suture. The [place] drain was removed. The Scarpas fascia was then closed with 3-0 Vicryl suture and skin was closed with catia. The patient tolerated the procedure well.
[2022-07-07] MEDS: HYDROcodone/APAP 7.5-325MG 1 EACH TAB PO PRN (20:00)
[2022-07-07] MEDS: ATORVASTATIN 80 MG TAB PO SCH (20:49)
--- NOTE | 2022-07-07 23:16 | P.PN ---
Subjective Progress Note Date: 07/07/22 Patient is a 66-year-old male with a known history of hypertension, history of coronary artery disease history of stent placement, cryoablation of renal cancer, history of biventricular pacemaker placement and schizophrenia presents ER with complaints of right groin pain for the past 2 to 3 days. Patient does have history of right inguinal hernia. Patient noted bulging in the right groin region and pain. Along with worsening pain. Denies any heavy lifting or resting with exercise. Patient has been having hernia for the past couple of years. Denies any complaints of diarrhea or constipation. Denies any fever or chills. No nausea vomiting. No dysuria hematuria. No chest pain or shortness of breath. CT abdomen and pelvis showed small bowel obstruction with focal transition point within the right inguinal hernia. There is edema and mesenteric congestion in this region which may represent strangulation. Correlate clinically. Similar inflammatory mid lesion within the right kidney with calcification and fat deposition. Correlate for any prior history of surgical intervention. Laboratory pressure WBC 8.5 hemoglobin 12.5 and platelets 271 Sodium 132 potassium 4.5 chloride 101 bicarbonate 22 BUN 12 and creatinine 0.85 and blood sugar is 122 07/05/2022 Patient is currently lying in the bed. Awake alert and oriented x3. No complaints of chest pain or shortness breath. Patient is cleared from cardiology standpoint for right inguinal hernia repair. No signs of nausea or vomiting. Tolerating oral diet. No cough or sputum production. No other acute overnight issues. Laboratory data reviewed. 07/06/2022 Patient is currently lying in the bed. Awake alert and oriented x3. Able to tolerate oral diet. Denies any complaints of chest pain or shortness of breath. No abdominal pain. Did have bowel movement. No cough or sputum production. Patient is scheduled for inguinal repair tomorrow by general surgery. 07/07/2022 Patient evaluated today resting in bed pending surgery today for incarcerated right inguinal hernia. Sodium has improved to 137 today. Continue IV fluids. Pain management. Review of Systems Constitutional: Denied any fatigue denied any fever. Cardio vascular: denied any chest pain, palpitations Gastrointestinal: denied any nausea, vomiting, diarrhea Pulmonary: Denied any shortness of breath cough Neurologic denied any new focal deficits All inpatient medications were reviewed and appropriate changes in these medications as dictated in the interval history and assessment and plan. PHYSICAL EXAMINATION: GENERAL: The patient is alert and oriented x3, not in any acute distress. Well developed, well nourished. HEENT: Pupils are round and equally reacting to light. EOMI. No scleral icterus. No conjunctival pallor. Normocephalic, atraumatic. No pharyngeal erythema. No thyromegaly. CARDIOVASCULAR: S1 and S2 present. No murmurs, rubs, or gallops. PULMONARY: Chest is clear to auscultation, no wheezing or crackles. ABDOMEN: Soft, nontender, nondistended, normoactive bowel sounds. No palpable organomegaly. MUSCULOSKELETAL: No joint swelling or deformity. EXTREMITIES: No cyanosis, clubbing, or pedal edema. NEUROLOGICAL: Gross neurological examination did not reveal any focal deficits. SKIN: No rashes. Assessment and Plan Assessment Right inguinal hernia with strangulated small bowel and SBO. Hernia was reduced in ER. Coronary disease history of stent placement to mid RCA on 04/30/2021 Schizophrenia Hypertension History of renal cancer status post cryoablation GI and DVT prophylaxis Full Code Plan Continue IV fluids Cardiology cleared patient for surgery Patient is pending surgery for incarcerated right inguinal hernia The impression and plan of care has been dictated by Lesli Hernandez Nurse Practitioner as directed. Dr. Bib MD I have performed a history and physical examination and medical decision making of this patient, discussed the same with the dictator, and agree with the dictators assessment and plan as written, documented as a scribe. Based on total visit time, I have performed more than 50% of this visit. Objective - Vital Signs Vital signs: Vital Signs Temp 97 F L 07/07/22 15:23 Pulse 69 07/07/22 16:00 Resp 16 07/07/22 16:00 BP 142/68 07/07/22 16:00 Pulse Ox 98 07/07/22 16:00 FiO2 Intake & Output 07/06/22 07/07/22 07/07/22 18:59 06:59 18:59 Intake Total 600 250 Balance 600 250 Intake: IV 250 Intake, IV Titration 600 Amount Sodium Chloride 0.9% 1, 600 000 ml @ 75 mls/hr IV . [id number] [facility] Rx#:[id number] Other: Voiding Method Toilet Toilet Urinal Urinal # Voids 4 # Bowel Movements 1 1 - Labs CBC & Chem 7: 07/04/22 10:00 07/07/22 05:03 Labs: Abnormal Lab Results - Last 24 Hours (Table) 07/07/22 Range/Units 05:03 Carbon Dioxide 31.8 H (20.0-27.5) mmol/L Anion Gap 6.20 L (10.00-18.00) mmol/L BUN 6.9 L (9.0-27.0) mg/dL BUN/Creatinine Ratio 7.67 L (12.00-20.00) Ratio Assessment and Plan Time with Patient: Less than 30
[2022-07-08] MEDS: PANTOPRAZOLE 40 MG TABLET PO SCH (07:54)
[2022-07-08] MEDS: clonazePAM 1 MG TAB PO SCH (07:54)
[2022-07-08] MEDS: METOPROLOL TARTRATE 25 MG TAB PO SCH (07:54)
[2022-07-08] MEDS: TAMSULOSIN 0.4 MG CAP.ER.24H PO SCH (07:54)
[2022-07-08] MEDS: SERTRALINE 50 MG TAB PO SCH (07:54)
[2022-07-08] MEDS ORDERED: ENOXAPARIN 40 MG/0.4 ML SYRINGE SQ SCH (09:00)
[2022-07-08] MEDS: HYDROcodone/APAP 7.5-325MG 1 EACH TAB PO PRN ×2 (09:46→15:24)
[2022-07-08] MEDS: cloZAPine 100 MG TAB PO SCH ×2 (09:46→15:24)
[2022-07-08] MEDS: SODIUM CHLORIDE 0.9% 1,000 ML IV SCH (09:49)
--- NOTE | 2022-07-08 11:47 | P.PN ---
Subjective Progress Note Date: 07/08/22 History of present illness: The patient is a pleasant 66-year-old gentleman with a past medical history si gnificant for CAD with prior stenting of the RCA was performed by Dr. Vazquez in the past as well as hypertension and dyslipidemia who was admitted to the hospital with abdominal discomfort and he was inguinal hernia and he is in process of having surgery. We consulted to see the patient for preoperative cardiac assessment before noncardiac surgery. The patient somewhat is a poor historian but he seems to be asymptomatic from the cardiac standpoint of view. He reports no pain in the chest and no shortness of breath and no dizziness or lightheadedness and no feeling of heart racing or fluttering or presyncope or syncope. The patient underwent stenting of the RCA in 2020 and it has been more than a year since he underwent the stent. Hemodynamically the patient is stable. Clinically he is stable. From the cardiovascular standpoint of view, the patient can proceed with the inguinal hernia surgery. No need for any further cardiac testing. Meanwhile the Plavix can be stopped since it has been a year since he underwent a stenting and we will continue daily aspirin only. July 062021 The patient was seen this morning. He remains asymptomatic from a cardiovascular standpoint of view, and he remains also hemodynamically stable. He reports no pain in the chest and no shortness of breath and no dizziness or lightheadedness and no feeling of heart racing or fluttering or presyncope or syncope. Antiplatelets are on hold at this point. From the cardiovascular standpoint of view, the patient is stable to undergo the hernia surgery tomorrow. 07/07 No new concerns from the patient today. He states he is scheduled for surgery this afternoon. No chest pain or shortness of breath. 07/08 Yesterday, patient underwent hernia repair. He is currently eating a full regular diet with and tolerating. He denies having any chest pain or shortness of breath. Physical examination: Gen: This is a 66-year-old obese male. He is sitting in a recliner but appears to be comfortable. VS: Reviewed HEENT: Head is atraumatic, normocephalic. Pupils equal, round. Sclerae is anicteric. NECK: Supple. No JVD. No lymphadenopathy. No thyromegaly. LUNGS: Clear to auscultation. No wheezes or rhonchi. No intercostal retractions. HEART: Regular rate and rhythm. No murmur. ABDOMEN: Soft. Bowel sounds are present. No masses. No tenderness. EXTREMITIES: No pedal edema. No calf tenderness. NEUROLOGICAL: Patient is awake, alert. Assessment: Right inguinal hernia status post repair Abdominal discomfort secondary to the above CAD with prior stenting of the RCA in April 2021 Hypertension Dyslipidemia Plan Patient can be resumed on Plavix and aspirin. Patient is cleared for discharge from cardiology. Follow-up with Dr. Vazquez in the office. Nurse practitioner note has been reviewed, I agree with documented findings and plan of care. Patient was seen and examined. Objective - Vital Signs Vital signs: Vital Signs Temp 97.7 F 07/08/22 07:33 Pulse 66 07/08/22 07:33 Resp 19 07/08/22 07:33 BP 104/57 07/08/22 07:33 Pulse Ox 96 07/08/22 07:33 FiO2 Intake & Output 07/07/22 07/08/22 07/08/22 18:59 06:59 18:59 Intake Total 830 Output Total 3 Balance 827 Intake: IV 350 Oral 480 Output: Urine 3 Other: Voiding Method Toilet Toilet Urinal Urinal # Voids 6 # Bowel Movements 1 - Labs CBC & Chem 7: 07/04/22 10:00 07/07/22 05:03 Labs: Abnormal Lab Results - Last 24 Hours (Table) 07/07/22 Range/Units 05:03 Carbon Dioxide 31.8 H (20.0-27.5) mmol/L Anion Gap 6.20 L (10.00-18.00) mmol/L BUN 6.9 L (9.0-27.0) mg/dL BUN/Creatinine Ratio 7.67 L (12.00-20.00) Ratio
--- NOTE | 2022-07-08 13:19 | P.GSHP ---
History of Present Illness H&P Date: 07/04/22 Please note that the report was accidentally dictated is a surgical consult on 07/04/2022 instead of an H&P CHIEF COMPLAINT: Abdominal pain HISTORY OF PRESENT ILLNESS: This is a 66-year-old male with a known history of right inguinal hernia for the last few years. He presented to the hospital with complaints of right sided groin pain for the last 2-3 days with a bulge in the right groin. Patient denies any nausea or vomiting. Patient has had a history of needing the hernia reduced. Hernia has been reduced in the ER. Computed tomography scan abdomen and pelvis prior to the reduction had shown small bowel obstruction with focal transition point within the right inguinal hernia. There is edema and mesenteric congestion in this region which may represent strangulation. Patient does have a cardiac history with coronary disease and cardiac stent on Plavix. Patient seen and examined with Dr. kaplan PAST MEDICAL HISTORY: Schizophrenia, renal cancer with surgery, coronary disease with cardiac stent, pacemaker PAST SURGICAL HISTORY: See below MEDICATIONS: See below ALLERGIES: See below SOCIAL HISTORY: No illicit drug use. REVIEW OF SYSTEMS: CONSTITUTIONAL: Denies fever or chills. HEENT: Denies blurred vision, vision changes, or eye pain. Denies hemoptysis CARDIOVASCULAR: Denies chest pain or pressure. RESPIRATORY: No shortness of breath. GASTROINTESTINAL: See HPI for pertinent findings HEMATOLOGIC: Denies bleeding disorders. GENITOURINARY: Denies any blood in urine or increased urinary frequency. SKIN: Denies pruitis. Denies rash. PHYSICAL EXAM: VITAL SIGNS: Reviewed GENERAL: Well-developed in no acute distress. HEENT: No sclera icterus. Extraocular movements grossly intact. Moist buccal mucosa. Head is atraumatic, normocephalic. No nasal drainage. ABDOMEN: Soft. Nondistended. Tenderness with palpation in the right groin. Area is soft. Hernia has been reduced. NEUROLOGIC: Alert and oriented. Cranial nerves II through XII grossly intact. LABORATORY DATA: WBC 8.5 Hgb 12.5 platelets 271 Sodium 132 potassium is 4.5 creatinine 0.85 Lactic acid 1.1 IMAGING: Computed tomography scan abdomen and pelvis small bowel obstruction with focal transition point within the right inguinal hernia. There is edema and mesenteric congestion in this region which may represent strangulation. Similar indeterminate lesion within the right kidney with calcification in fact deposition. ASSESSMENT: 1. Right inguinal hernia with small bowel obstruction. Hernia has been reduced 2. History of coronary disease with cardiac stent on Plavix PLAN: -Open repair of right inguinal hernia scheduled for 07/06/[address] kaplan -Start full liquid diet -Consult cardiology for cardiac clearance -Consult medical service for medical management -Hold Plavix -Continue supportive care Physician Theatrical Variety Agent note has been reviewed by physician. Signing provider agrees with the documented findings, assessment, and plan of care. Past Medical History Past Medical History: Hypertension Additional Past Medical History / Comment(s): renal CA with surgery History of Any Multi-Drug Resistant Organisms: Unobtainable Past Surgical History: Heart Catheterization With Stent, Orthopedic Surgery Additional Past Surgical History / Comment(s): cryoablation for renal CA, Heart Catheterization 04/23/2021, Past Anesthesia/Blood Transfusion Reactions: No Reported Reaction Date of Last Stent Placement:: 04/23/21 Type of Cardiac Device: Biventricular Pacemaker, Unknown Device Placement Date:: unknown Past Psychological History: Schizophrenia Smoking Status: Never smoker Past Alcohol Use History: None Reported Past Drug Use History: None Reported - Past Family History Family Family Medical History: No Reported History Medications and Allergies Home Medications Medication Instructions Recorded Confirmed Type Acetaminophen Tab [Tylenol] 1,000 mg PO Q8H PRN MDD 6 TABS 12/09/20 07/04/22 History Omeprazole 40 mg PO BID@0800,2100 12/09/20 07/04/22 History Sertraline [Zoloft] 50 mg PO DAILY@0800 04/27/21 07/04/22 History Aspirin 81 mg PO DAILY@1700 07/28/21 07/04/22 History Metoprolol Tartrate [Lopressor] 25 mg PO DAILY@0800 07/28/21 07/04/22 History Sennosides-Docusate Sodium 2 tab PO DAILY PRN 02/03/22 07/04/22 History [Senokot-S] cloZAPine [Clozaril] 200 mg PO DAILY@1600 02/03/22 07/04/22 History cloZAPine [Clozaril] 400 mg PO HS@2100 02/03/22 07/04/22 History Atorvastatin [Lipitor] 80 mg PO HS@2100 07/04/22 07/04/22 History Clopidogrel [Plavix] 75 mg PO DAILY@0800 07/04/22 07/04/22 History Docusate [Colace] 100 mg PO BID@0800,209907/04/22 07/04/22 History Losartan Potassium [Cozaar] 25 mg PO HS@209907/04/22 07/04/22 History Tamsulosin [Flomax] 0.4 mg PO BID@0800,209907/04/22 07/04/22 History cloZAPine [Clozaril] 100 mg PO DAILY@0800 07/04/22 07/04/22 History clonazePAM [KlonoPIN] 1 mg PO BID@0800,209907/04/22 07/04/22 History Allergies Allergy/AdvReac Type Severity Reaction Status Date / Time No Known Allergies Allergy Verified 07/07/22 13:50 Surgical - Exam Vital Signs Temp Pulse Resp BP Pulse Ox 98.5 F 73 16 105/76 97 07/04/22 09:38 07/04/22 09:38 07/04/22 09:38 07/04/22 09:38 07/04/22 09:38 Results - Labs 07/04/22 10:00 07/07/22 05:03
--- NOTE | 2022-07-08 13:31 | P.DS ---
Providers Date of admission: 07/04/22 11:30 Expected date of discharge: 07/08/22 Attending physician: Jani Marcos Consults: 07/04/22 11:19 Consult Physician Routine Consulting Provider: Hakeem Dixon Consult Reason/Comments: cardiac clearance Do you want consulting provider notified?: Yes Consult Physician Routine Consulting Provider: Britton Mccartney Consult Reason/Comments: medical management Do you want consulting provider notified?: Yes Primary care physician: [facility] Hospital Course: Discharge diagnosis 1. Incarcerated right inguinal hernia status post open repair of incarcerated inguinal hernia and cord lipoma excision Hospital course This is a 66-year-old male with a known history of right inguinal hernia for the last few years. He presented to the hospital with complaints of right sided groin pain for the last 2-3 days with a bulge in the right groin. Patient denies any nausea or vomiting. Patient has had a history of needing the hernia reduced. Hernia has been reduced in the ER. Computed tomography scan abdomen and pelvis prior to the reduction had shown small bowel obstruction with focal transition point within the right inguinal hernia. There is edema and mesenteric congestion in this region which may represent strangulation. Patient is status post open repair of incarcerated inguinal hernia and cord lipoma excision. He tolerated surgery well. His pain is controlled. He is tolerating diet. He has been up ambulating. Afebrile. He is stable for discharge. Please refer to chart for any further details. Physician [employer] Blank Handler note has been reviewed by physician. Signing provider agrees with the documented findings, assessment, and plan of care. Patient Condition at Discharge: Stable Plan - Discharge Summary Discharge Rx Participant: No New Discharge Prescriptions: New HYDROcodone/APAP 7.5-325MG [[place] 7.5-325] 1 tab PO Q6HR PRN 3 Days #12 tab PRN Reason: Pain Continue Clopidogrel [Plavix] 75 mg PO DAILY@0800 No Action Omeprazole 40 mg PO BID@0800,2100 Acetaminophen Tab [Tylenol] 1,000 mg PO Q8H PRN MDD 6 TABS PRN Reason: Fever And/ Or Pain Metoprolol Tartrate [Lopressor] 25 mg PO DAILY@0800 cloZAPine [Clozaril] 400 mg PO HS@2100 Sennosides-Docusate Sodium [Senokot-S] 2 tab PO DAILY PRN PRN Reason: Constipation clonazePAM [KlonoPIN] 1 mg PO BID@0800,2099 Losartan Potassium [Cozaar] 25 mg PO HS@2099 Tamsulosin [Flomax] 0.4 mg PO BID@0800,2099 Sertraline [Zoloft] 50 mg PO DAILY@0800 Aspirin 81 mg PO DAILY@1700 cloZAPine [Clozaril] 200 mg PO DAILY@1600 Docusate [Colace] 100 mg PO BID@0800,2099 cloZAPine [Clozaril] 100 mg PO DAILY@0800 Atorvastatin [Lipitor] 80 mg PO HS@2099 Discharge Medication List Acetaminophen Tab [Tylenol] 1,000 mg PO Q8H PRN MDD 6 TABS 12/09/20 [History] Omeprazole 40 mg PO BID@0800,209912/09/20 [History] Sertraline [Zoloft] 50 mg PO DAILY@0800 04/27/21 [History] Aspirin 81 mg PO DAILY@1700 07/28/21 [History] Metoprolol Tartrate [Lopressor] 25 mg PO DAILY@0800 07/28/21 [History] Sennosides-Docusate Sodium [Senokot-S] 2 tab PO DAILY PRN 02/03/22 [History] cloZAPine [Clozaril] 200 mg PO DAILY@1600 02/03/22 [History] cloZAPine [Clozaril] 400 mg PO HS@209902/03/22 [History] Atorvastatin [Lipitor] 80 mg PO HS@209907/04/22 [History] Clopidogrel [Plavix] 75 mg PO DAILY@0800 07/04/22 [History] Docusate [Colace] 100 mg PO BID@0800,209907/04/22 [History] Losartan Potassium [Cozaar] 25 mg PO HS@209907/04/22 [History] Tamsulosin [Flomax] 0.4 mg PO BID@0800,209907/04/22 [History] cloZAPine [Clozaril] 100 mg PO DAILY@0800 07/04/22 [History] clonazePAM [KlonoPIN] 1 mg PO BID@0800,209907/04/22 [History] HYDROcodone/APAP 7.5-325MG [[place] 7.5-325] 1 tab PO Q6HR PRN 3 Days #12 tab 07/08/22 [Rx] Follow up Appointment(s)/Referral(s): Tonya Vazquez MD [STAFF PHYSICIAN] - 2 Weeks Renaldo Berkowitz [NON-STAFF] - As Needed [facility] [Primary Care Provider] - 1-2 days Jani Marcos MD [STAFF PHYSICIAN] - 1 Week Activity/Diet/Wound Care/Special Instructions: Medical service to complete discharge med rec No driving while taking [place] No lifting over 10 pounds Shower daily. No soaking or tub baths for 2 weeks Very light activity until you are reevaluated at your follow up appointment with your surgeon Discharge Disposition: TRANSFER TO SNF/ECF
--- NOTE | 2022-07-08 14:09 | P.PN ---
Subjective Progress Note Date: 07/08/22 Patient is a 66-year-old male with a known history of hypertension, history of coronary artery disease history of stent placement, cryoablation of renal cancer, history of biventricular pacemaker placement and schizophrenia presents ER with complaints of right groin pain for the past 2 to 3 days. Patient does have history of right inguinal hernia. Patient noted bulging in the right groin region and pain. Along with worsening pain. Denies any heavy lifting or resting with exercise. Patient has been having hernia for the past couple of years. Denies any complaints of diarrhea or constipation. Denies any fever or chills. No nausea vomiting. No dysuria hematuria. No chest pain or shortness of breath. CT abdomen and pelvis showed small bowel obstruction with focal transition point within the right inguinal hernia. There is edema and mesenteric congestion in this region which may represent strangulation. Correlate clinically. Similar inflammatory mid lesion within the right kidney with calcification and fat deposition. Correlate for any prior history of surgical intervention. Laboratory pressure WBC 8.5 hemoglobin 12.5 and platelets 271 Sodium 132 potassium 4.5 chloride 101 bicarbonate 22 BUN 12 and creatinine 0.85 and blood sugar is 122 07/05/2022 Patient is currently lying in the bed. Awake alert and oriented x3. No complaints of chest pain or shortness breath. Patient is cleared from cardiology standpoint for right inguinal hernia repair. No signs of nausea or vomiting. Tolerating oral diet. No cough or sputum production. No other acute overnight issues. Laboratory data reviewed. 07/06/2022 Patient is currently lying in the bed. Awake alert and oriented x3. Able to tolerate oral diet. Denies any complaints of chest pain or shortness of breath. No abdominal pain. Did have bowel movement. No cough or sputum production. Patient is scheduled for inguinal repair tomorrow by general surgery. 07/07/2022 Patient evaluated today resting in bed pending surgery today for incarcerated right inguinal hernia. Sodium has improved to 137 today. Continue IV fluids. Pain management. 07/08/2022 Patient is evaluated today sitting up in chair, he is postoperative day #1 right inguinal hernia repair for incarcerated right inguinal hernia. Pathology is pending at this time. Currently maintaining oxygen saturation on room air 96%. Afebrile, heart rate 66. Blood pressure 104/57. Recommend to hold off on losartan and monitor blood pressure at this time. Continue on metoprolol. Recommend to hold off up on patients home klonazepam especially while on norco for pain management to avoid sedative effect. Cleared medically for discharge. Review of Systems Constitutional: Denied any fatigue denied any fever. Cardio vascular: denied any chest pain, palpitations Gastrointestinal: denied any nausea, vomiting, diarrhea Pulmonary: Denied any shortness of breath cough Neurologic denied any new focal deficits All inpatient medications were reviewed and appropriate changes in these medications as dictated in the interval history and assessment and plan. PHYSICAL EXAMINATION: GENERAL: The patient is alert and oriented x3, not in any acute distress. Well d eveloped, well nourished. HEENT: Pupils are round and equally reacting to light. EOMI. No scleral icterus. No conjunctival pallor. Normocephalic, atraumatic. No pharyngeal erythema. No thyromegaly. CARDIOVASCULAR: S1 and S2 present. No murmurs, rubs, or gallops. PULMONARY: Chest is clear to auscultation, no wheezing or crackles. ABDOMEN: Soft, nontender, nondistended, normoactive bowel sounds. No palpable organomegaly. MUSCULOSKELETAL: No joint swelling or deformity. EXTREMITIES: No cyanosis, clubbing, or pedal edema. NEUROLOGICAL: Gross neurological examination did not reveal any focal deficits. SKIN: No rashes. Right groin dressing intact. Assessment and Plan Assessment Right inguinal hernia with strangulated small bowel and SBO. Hernia was reduced in ER. Status post right inguinal hernia repair Coronary disease history of stent placement to mid RCA on 04/30/2021 Schizophrenia Hypertension History of renal cancer status post cryoablation GI and DVT prophylaxis Full Code Plan Patient is cleared medically for discharge to rehab today. He is postoperative day #1 right inguinal hernia repair. Recommend to hold losartan secondary to low blood pressure in the 100s systolic. Hold off home klonopin dose secondary to norco for pain management Continue all other home medications Thank you for this consultation. The impression and plan of care has been dictated by Lesli Hernandez, Nurse Practitioner as directed. Dr. Bib MD I have performed a history and physical examination and medical decision making of this patient, discussed the same with the dictator, and agree with the dictators assessment and plan as written, documented as a scribe. Based on total visit time, I have performed more than 50% of this visit. Objective - Vital Signs Vital signs: Vital Signs Temp 97.7 F 07/08/22 07:33 Pulse 66 07/08/22 07:33 Resp 19 07/08/22 07:33 BP 104/57 07/08/22 07:33 Pulse Ox 96 07/08/22 07:33 FiO2 Intake & Output 07/07/22 07/08/22 07/08/22 18:59 06:59 18:59 Intake Total 830 Output Total 3 Balance 827 Intake: IV 350 Oral 480 Output: Urine 3 Other: Voiding Method Toilet Toilet Incontinent Urinal Urinal External Catheter # Voids 6 # Bowel Movements 1 - Labs CBC & Chem 7: 07/04/22 10:00 07/07/22 05:03 Assessment and Plan Time with Patient: Less than 30
[2022-07-08 14:16] VITALS: BP 117/74; PULSE 70; RESP 16; TEMP 98.1
[2022-07-08] MEDS ORDERED: ASPIRIN 81 MG PO SCH (17:00)
[2022-07-09] MEDS ORDERED: CLOPIDOGREL 75 MG TAB PO SCH (08:00)
== END 2022-07-08 17:23 | DRG 353 ==
LOC: EC 09:29 → 4SSUR 11:30
PROVIDERS: ADMIT Surgery; ATTEND Surgery
PROC: 0VBF0ZZ Excision of Right Spermatic Cord, Open Approach (ICD-10-PCS; 2022-07-07)
PROC: 0WUF0JZ Supplement Abdominal Wall with Synthetic Substitute, Open Approach (ICD-10-PCS; principal; 2022-07-07 15:00)
DX: R10.9 Unspecified abdominal pain (principal); K56.2 Volvulus; K40.30 Unilateral inguinal hernia, with obstruction, without gangrene, not specified as recurrent; I25.10 Atherosclerotic heart disease of native coronary artery without angina pectoris; Z20.822 Contact with and (suspected) exposure to COVID-19; D17.6 Benign lipomatous neoplasm of spermatic cord; E11.9 Type 2 diabetes mellitus without complications; E78.5 Hyperlipidemia, unspecified; N28.89 Other specified disorders of kidney and ureter; F20.9 Schizophrenia, unspecified; I10 Essential (primary) hypertension; Z79.02 Long term (current) use of antithrombotics/antiplatelets; Z79.82 Long term (current) use of aspirin; Z79.899 Other long term (current) drug therapy; Z85.528 Personal history of other malignant neoplasm of kidney; Z95.0 Presence of cardiac pacemaker; Z95.5 Presence of coronary angioplasty implant and graft
CPT/HCPCS: 36415; 74176; 80048; 80053; 83605; 85025; 87635; 88302; 88304; 96361; 96374; 96376; 99285

== ENCOUNTER 2022-08-18 02:44 | Emergency (ER) | payer OTHER, MEDICARE ==
[2022-08-18 03:02] VITALS: RESP 16; TEMP 97.6
--- NOTE | 2022-08-18 04:09 | ED ---
General Adult HPI - General Chief complaint: Psychiatric Symptoms Stated complaint: Mental health Time Seen by Provider: 08/18/22 03:21 Source: patient Mode of arrival: EMS Limitations: no limitations - History of Present Illness Initial comments: This patient is a 66-year-old man here to have evaluation of change in his mental status/behavior. History is from both the patient and his . They report that he has been not acting like his usual self. He was confused earlier. The patient once attempted to walk in the house and ran into the wall. Patient also reportedly conversing with family member who was not there. It is reported that he had these symptoms previously associated with urinary tract infection. The patient is denying pains. No dyspnea. He had not noted fever or chills. No cough. No change in urination noted. No change in bowel movements. Onset/Timin -: days(s) Severity scale (1-10): 0 Consistency: intermittent Improves with: none Worsens with: none Associated Symptoms: confusion, other Treatments Prior to Arrival: none - Related Data Home Medications Medication Instructions Recorded Confirmed Acetaminophen Tab [Tylenol] 1,000 mg PO Q8H PRN MDD 6 TABS 12/09/20 07/04/22 Omeprazole 40 mg PO BID@0800,209912/09/20 07/04/22 Sertraline [Zoloft] 50 mg PO DAILY@0800 04/27/21 07/04/22 Aspirin 81 mg PO DAILY@1700 07/28/21 07/04/22 Metoprolol Tartrate [Lopressor] 25 mg PO DAILY@0800 07/28/21 07/04/22 Sennosides-Docusate Sodium 2 tab PO DAILY PRN 02/03/22 07/04/22 [Senokot-S] cloZAPine [Clozaril] 200 mg PO DAILY@1600 02/03/22 07/04/22 cloZAPine [Clozaril] 400 mg PO HS@209902/03/22 07/04/22 Atorvastatin [Lipitor] 80 mg PO HS@209907/04/22 07/04/22 Clopidogrel [Plavix] 75 mg PO DAILY@0800 07/04/22 07/04/22 Docusate [Colace] 100 mg PO BID@0800,209907/04/22 07/04/22 Tamsulosin [Flomax] 0.4 mg PO BID@0800,2100 07/04/22 07/04/22 cloZAPine [Clozaril] 100 mg PO DAILY@0800 07/04/22 07/04/22 Previous Rx's Medication Instructions Recorded HYDROcodone/APAP 7.5-325MG [[place] 1 tab PO Q6HR PRN 3 Days #12 tab 07/08/22 7.5-325] Sulfamethox-Tmp 800-160Mg [Bactrim 1 each PO Q12HR #14 tab 08/18/22 Ds] Allergies Allergy/AdvReac Type Severity Reaction Status Date / Time No Known Allergies Allergy Verified 07/07/22 13:50 Review of Systems ROS Statement: Those systems with pertinent positive or pertinent negative responses have been documented in the HPI. ROS Other: All systems not noted in ROS Statement are negative. Constitutional: Denies: fever, chills, weakness Eyes: Denies: vision change Respiratory: Denies: cough, dyspnea Cardiovascular: Denies: chest pain, palpitations, edema Gastrointestinal: Denies: abdominal pain, vomiting, diarrhea Genitourinary: Denies: dysuria, hematuria Musculoskeletal: Denies: back pain Skin: Denies: rash Neurological: Denies: headache Psychiatric: Reports: auditory hallucinations. Denies: homicidal thoughts, s uicidal thoughts Past Medical History Past Medical History: Hypertension Additional Past Medical History / Comment(s): renal CA with surgery History of Any Multi-Drug Resistant Organisms: Unobtainable Past Surgical History: Heart Catheterization With Stent, Orthopedic Surgery Additional Past Surgical History / Comment(s): cryoablation for renal CA, Heart Catheterization 04/23/2021, Past Anesthesia/Blood Transfusion Reactions: No Reported Reaction Date of Last Stent Placement:: 04/23/21 Type of Cardiac Device: Biventricular Pacemaker, Unknown Device Placement Date:: unknown Past Psychological History: Schizophrenia Smoking Status: Never smoker Past Alcohol Use History: None Reported Past Drug Use History: None Reported - Past Family History Family Family Medical History: No Reported History General Exam Limitations: no limitations General appearance: alert, in no apparent distress Head exam: Present: atraumatic, normocephalic Eye exam: Present: normal appearance, PERRL, EOMI. Absent: scleral icterus, conjunctival injection ENT exam: Present: normal oropharynx, mucous membranes moist Neck exam: Present: normal inspection, full ROM. Absent: tenderness, meningismus Respiratory exam: Present: normal lung sounds bilaterally. Absent: respiratory distress, wheezes, rales, rhonchi, stridor Cardiovascular Exam: Present: regular rate, normal rhythm, normal heart sounds. Absent: systolic murmur, diastolic murmur, rubs, gallop GI/Abdominal exam: Present: soft. Absent: distended, tenderness, guarding, rebound, rigid, mass Extremities exam: Present: normal inspection, normal capillary refill. Absent: pedal edema, calf tenderness Back exam: Present: normal inspection. Absent: CVA tenderness (R), CVA tenderness (L) Neurological exam: Present: alert. Absent: oriented X3 (Patient is oriented to person and place but not date), motor sensory deficit Skin exam: Present: warm, dry, intact, normal color. Absent: rash Course Vital Signs 08/18/22 08/18/22 02:57 05:01 Temperature 97.6 F Pulse Rate 89 92 Respiratory 16 16 Rate Blood Pressure 161/86 157/60 O2 Sat by Pulse 99 97 Oximetry EKG Findings - EKG Results: EKG: interpreted by ABEL LUNDBERG, sinus rhythm (Rate 69 bpm), normal axis, normal QRS, normal ST/T Medical Decision Making - Medical Decision Making This patient is 66-year-old man here for change in mental status. The physical exam largely unremarkable. The workup does reveal urinary tract infection. Discussed findings with patient and and they would like to go home to continue course of antibiotics, and will return if symptoms recur. Patient appears stable for discharge at this point, discussed appropriate further care and follow-up as well as return parameters. Was pt. sent in by a medical professional or institution? @ -no Did you speak to anyone other than the patient for history? @ -[ Did you review nursing and triage notes? @ -[agree Were old charts reviewed? @ -[yes Differential Diagnosis? @ -[Differential Dizziness: Differential Altered Mental Status: Hypoglycemia, DKA, hypercapnia, ETOH, overdose, CO poisoning, trauma, myxedema coma, HTN encephalopathy, infection, encephalitis, psychosis, intercranial hemorrhage, hepatic encephalopathy, meningitis, CVA, this is not meant to be an all-inclusive list EKG interpreted by me (3pts min.)? @ -[See chart X-rays interpreted by me (1pt min.)? @ - CT interpreted by me (1pt min.)? @ - U/S interpreted by me (1pt. min.)? @ -[none] What testing was considered but not performed? (CT, X-rays, U/S, labs)? Why? @ [ What meds were considered but not given? Why? @ -[none] Did you discuss the management of the patient with other professionals? @ -[No Did you reconcile home meds? @ -[none] Was smoking cessation discussed for >3mins.? @ -[none] Was critical care preformed (if so, how long)? @ -[none] Were there social determinants of health that impacted care today? How? ( Homelessness, low income, unemployed, alcoholism, drug addiction, transportation, low edu. Level, literacy, decrease access to med. care, [facility], rehab)? @ -[No Was there de-escalation of care discussed even if they declined? (Discuss DNR or withdrawal of care, Hospice)? @ -[No What co-morbidities impacted this encounter? (DM, HTN, Smoking, COPD, CAD, Cancer, CVA, Hep., AIDS, mental health diagnosis, sleep apnea, morbid obesity)? @ -[None Was patient admitted / discharged? @ -[Discharged Undiagnosed new problem with uncertain prognosis? @ -[none] Drug Therapy requiring intensive monitoring for toxicity (Heparin, Nitro, Insulin, Cardizem)? @ -[none] Were any procedures done? @ -[none] Diagnosis/symptom? @ -[1. Acute urinary tract infection Acute, or Chronic, or Acute on Chronic? @ -[Acute Uncomplicated (without systemic symptoms) or Complicated (systemic symptoms)? @ -[Uncomplicated Side effects of treatment? @ -[none] Exacerbation, Progression, or Severe Exacerbation] @ -[no] Poses a threat to life or bodily function? @ -[no] - Lab Data Result diagrams: 08/18/22 03:55 08/18/22 03:55 Lab Results 08/18/22 08/18/22 08/18/22 Range/Units 03:55 03:55 05:37 WBC 6.6 (3.8-10.6) k/uL RBC 4.84 (4.30-5.90) m/uL Hgb 13.7 (13.0-17.5) gm/dL Hct 41.3 (39.0-53.0) % MCV 85.2 (80.0-100.0) fL MCH 28.3 (25.0-35.0) pg MCHC 33.2 (31.0-37.0) g/dL RDW 15.2 (11.5-15.5) % Plt Count 252 (150-450) k/uL MPV 7.5 Neutrophils % 68 % Lymphocytes % 21 % Monocytes % 7 % Eosinophils % 2 % Basophils % 1 % Neutrophils # 4.5 (1.3-7.7) k/uL Lymphocytes # 1.4 (1.0-4.8) k/uL Monocytes # 0.5 (0-1.0) k/uL Eosinophils # 0.2 (0-0.7) k/uL Basophils # 0.1 (0-0.2) k/uL Sodium 134 L (137-145) mmol/L Potassium 4.9 (3.5-5.1) mmol/L Chloride 101 (98-107) mmol/L Carbon Dioxide 25 (22-30) mmol/L Anion Gap 8 mmol/L BUN 8 L (9-20) mg/dL Creatinine 0.80 (0.66-1.25) mg/dL Est GFR (CKD-EPI)AfAm >90 (>60 ml/min/1.73 sqM) Est GFR (CKD-EPI)NonAf >90 (>60 ml/min/1.73 sqM) Glucose 99 (74-99) mg/dL Calcium 9.0 (8.4-10.2) mg/dL Magnesium 2.2 (1.6-2.3) mg/dL Total Bilirubin 0.7 (0.2-1.3) mg/dL AST 27 (17-59) U/L ALT 19 (4-49) U/L Alkaline Phosphatase 68 (38-126) U/L Total Protein 6.9 (6.3-8.2) g/dL Albumin 4.5 (3.5-5.0) g/dL Urine Color Yellow Urine Appearance Cloudy (Clear) Urine pH 6.5 (5.0-8.0) Ur Specific [place] 1.010 (1.001-1.035) Urine Protein Negative (Negative) Urine Glucose (UA) Negative (Negative) Urine Ketones Negative (Negative) Urine Blood Negative (Negative) Urine Nitrite Negative (Negative) Urine Bilirubin Negative (Negative) Urine Urobilinogen <2.0 (<2.0) mg/dL Ur Leukocyte Esterase Large H (Negative) Urine RBC 1 (0-5) /hpf Urine WBC 72 H (0-5) /hpf Urine Bacteria Few H (None) /hpf Urine Mucus Rare H (None) /hpf - EKG Data -: EKG Interpreted by Me EKG shows normal: sinus rhythm, axis (Normal), intervals (Normal), QRS complexes (Normal), ST-T waves (Normal) Rate: normal (Rate 69 bpm) Disposition Clinical Impression: UTI (urinary tract infection) Disposition: HOME SELF-CARE Condition: Good Instructions (If sedation given, give patient instructions): Urinary Tract Infection in Men (ED) Prescriptions: Sulfamethox-Tmp 800-160Mg [Bactrim Ds] 1 each PO Q12HR #14 tab Is patient prescribed a controlled substance at d/c from ED?: No Referrals: [facility],Clinic [Primary Care Provider] - 1-2 days
[2022-08-18 04:16] LABS: Basophils # (A) 0.1 k/uL (0-0.2); Basophils % (A) 1 %; Eosinophils # (A) 0.2 k/uL (0-0.7); Eosinophils % (A) 2 %; HCT 41.3 % (39.0-53.0); HGB 13.7 gm/dL (13.0-17.5); Lymphocytes # (A) 1.4 k/uL (1.0-4.8); Lymphocytes % (A) 21 %; MCH 28.3 pg (25.0-35.0); MCHC 33.2 g/dL (31.0-37.0); MCV 85.2 fL (80.0-100.0); Mean Platelet Volume 7.5; Monocytes # (A) 0.5 k/uL (0-1.0); Monocytes % (A) 7 %; Neutrophils # (A) 4.5 k/uL (1.3-7.7); Neutrophils % (A) 68 %; Platelet Count 252 k/uL (150-450); RBC 4.84 m/uL (4.30-5.90); RDW 15.2 % (11.5-15.5); WBC 6.6 k/uL (3.8-10.6)
[2022-08-18 04:32] LABS: ALT 19 U/L (4-49); AST 27 U/L (17-59); African American GFR (CKD) >90 (>60 ml/min/1.73 sqM); Albumin 4.5 g/dL (3.5-5.0); Alkaline Phosphatase 68 U/L (38-126); Anion Gap 8 mmol/L; Blood Urea Nitrogen 8 mg/dL (9-20); Carbon Dioxide 25 mmol/L (22-30); Chloride 101 mmol/L (98-107); Glucose 99 mg/dL (74-99); Magnesium 2.2 mg/dL (1.6-2.3); Non-African American GFR(CKD) >90 (>60 ml/min/1.73 sqM); Potassium 4.9 mmol/L (3.5-5.1); Sodium 134 mmol/L (137-145); Total Bilirubin 0.7 mg/dL (0.2-1.3); Total Protein 6.9 g/dL (6.3-8.2)
[2022-08-18 05:47] VITALS: BP 157/60; PULSE 92
[2022-08-18 05:57] LABS: Appearance,Urine Cloudy (Clear); Bacteria,Urine Few /hpf; Bilirubin,Urine Negative (Negative); Blood,Urine Negative (Negative); Color,Urine Yellow; Glucose,Urine (UA) Negative (Negative); Ketones,Urine Negative (Negative); Leukocyte Esterase,Urine Large (Negative); Mucus,Urine Rare /hpf; Nitrite,Urine Negative (Negative); PH, Urine 6.5 (5.0-8.0); Protein,Urine Negative (Negative); RBC,Urine 1 /hpf (0-5); Urobilinogen,Urine <2.0 mg/dL (<2.0); WBC,Urine 72 /hpf (0-5)
[2022-08-18] MEDS ORDERED: SULFAMETHOX-TMP 800-160MG 1 EACH TAB PO STA (06:05)
== END 2022-08-18 06:57 | disposition home or self-care (01) ==
LOC: EC 02:44
DX: N39.0 Urinary tract infection, site not specified (principal); I10 Essential (primary) hypertension; Z79.82 Long term (current) use of aspirin; Z79.899 Other long term (current) drug therapy
CPT/HCPCS: 36415; 80053; 81001; 82075; 83735; 85025; 87086; 93005; 99285

== ENCOUNTER 2022-11-11 11:12 | Observation (INO) | payer OTHER, MEDICARE ==
--- NOTE | 2022-11-11 12:16 | ED ---
General Adult HPI - General Chief complaint: Weakness Stated complaint: Weakness Time Seen by Provider: 11/11/22 11:30 Source: patient, EMS Mode of arrival: EMS - History of Present Illness Initial comments: 66-year-old male with past medical history of coronary artery disease, s chivangiephrenia who presents to the emergency department from [facility]. He states he went downstairs to eat breakfast. After breakfast he fell asleep in the lounge. The staff yelled at him to go up to his room and he states that when he stood up he felt acutely dizzy and fell backwards into the doorway. He denies hitting his head or losing consciousness fully. He felt like he couldn't stand up due to being so lightheaded and therefore he did ultimately call EMS. He did admit to having some chest pain and shortness of breath to staff however denies this to me upon my evaluation. No fevers. No abdominal pain. No black or bloody stools. He has had a mild cough. Had Covid 3 weeks ago. Remainder of HPI is limited because the patient's current mentation - Related Data Home Medications Medication Instructions Recorded Confirmed Acetaminophen Tab [Tylenol] 1,000 mg PO Q8H PRN 12/09/20 11/11/22 Omeprazole 40 mg PO BID@0800,2100 12/09/20 11/11/22 Sertraline [Zoloft] 50 mg PO DAILY@0800 04/27/21 11/11/22 Aspirin 81 mg PO DAILY@1700 07/28/21 11/11/22 Metoprolol Tartrate [Lopressor] 25 mg PO DAILY@0800 07/28/21 11/11/22 Sennosides-Docusate Sodium 2 tab PO DAILY PRN 02/03/22 11/11/22 [Senokot-S] cloZAPine [Clozaril] 200 mg PO DAILY@1600 02/03/22 11/11/22 cloZAPine [Clozaril] 400 mg PO HS@2100 02/03/22 11/11/22 Atorvastatin [Lipitor] 80 mg PO HS@2100 07/04/22 11/11/22 Clopidogrel [Plavix] 75 mg PO DAILY@0800 07/04/22 11/11/22 Docusate [Colace] 100 mg PO BID@0800,1700 07/04/22 11/11/22 Tamsulosin [Flomax] 0.4 mg PO BID@0800,2100 07/04/22 11/11/22 cloZAPine [Clozaril] 100 mg PO DAILY@0800 07/04/22 11/11/22 clonazePAM [KlonoPIN] 0.5 mg PO BID 11/11/22 11/11/22 Previous Rx's Medication Instructions Recorded HYDROcodone/APAP 7.5-325MG [[place] 1 tab PO Q6HR PRN 3 Days #12 tab 07/08/22 7.5-325] Allergies Allergy/AdvReac Type Severity Reaction Status Date / Time No Known Allergies Allergy Verified 11/11/22 12:53 Review of Systems ROS Statement: Those systems with pertinent positive or pertinent negative responses have been documented in the HPI. ROS Other: All systems not noted in ROS Statement are negative. Past Medical History Past Medical History: Hypertension Additional Past Medical History / Comment(s): renal CA with surgery History of Any Multi-Drug Resistant Organisms: Unobtainable Past Surgical History: Heart Catheterization With Stent, Orthopedic Surgery Additional Past Surgical History / Comment(s): cryoablation for renal CA, Heart Catheterization 04/23/2021, Past Anesthesia/Blood Transfusion Reactions: No Reported Reaction Date of Last Stent Placement:: 04/23/21 Type of Cardiac Device: Biventricular Pacemaker, Unknown Device Placement Date:: unknown Past Psychological History: Schizophrenia Smoking Status: Never smoker Past Alcohol Use History: None Reported Past Drug Use History: None Reported - Past Family History Family Family Medical History: No Reported History General Exam General appearance: alert, in no apparent distress Head exam: Present: atraumatic, normocephalic, normal inspection Eye exam: Present: normal appearance, PERRL, EOMI. Absent: scleral icterus, conjunctival injection, periorbital swelling ENT exam: Present: normal exam, mucous membranes moist Neck exam: Present: normal inspection. Absent: tenderness, meningismus, lymphadenopathy Respiratory exam: Present: normal lung sounds bilaterally. Absent: respiratory distress, wheezes, rales, rhonchi, stridor Cardiovascular Exam: Present: regular rate, normal rhythm, normal heart sounds. Absent: systolic murmur, diastolic murmur, rubs, gallop, clicks GI/Abdominal exam: Present: soft, normal bowel sounds. Absent: distended, tenderness, guarding, rebound, rigid Extremities exam: Present: normal inspection, full ROM, normal capillary refill. Absent: tenderness, pedal edema, joint swelling, calf tenderness Back exam: Present: normal inspection Neurological exam: Present: alert, oriented X3, CN II-XII intact Psychiatric exam: Present: normal mood, flat affect Skin exam: Present: warm, dry, intact, normal color. Absent: rash Course Vital Signs 11/11/22 11/11/22 11/11/22 11:30 12:47 12:49 Temperature 96.8 F L Pulse Rate 62 Pulse Rate [ 68 70 Container Coordinator ] Respiratory 18 Rate Blood Pressure 109/68 Blood Pressure 97/63 [Right Arm Sitting] Blood Pressure [Right Arm Standing] Blood Pressure 106/65 [Right Arm Supine] O2 Sat by Pulse 100 98 98 Oximetry 11/11/22 11/11/22 11/11/22 12:51 13:24 14:47 Temperature 97.6 F Pulse Rate 67 64 Pulse Rate [ 71 Container Coordinator ] Respiratory 17 18 Rate Blood Pressure 129/82 137/92 Blood Pressure [Right Arm Sitting] Blood Pressure 75/65 [Right Arm Standing] Blood Pressure [Right Arm Supine] O2 Sat by Pulse 95 95 99 Oximetry 11/11/22 11/11/22 17:33 18:30 Temperature Pulse Rate 68 69 Pulse Rate [ Container Coordinator ] Respiratory 18 18 Rate Blood Pressure 158/97 163/98 Blood Pressure [Right Arm Sitting] Blood Pressure [Right Arm Standing] Blood Pressure [Right Arm Supine] O2 Sat by Pulse 99 98 Oximetry EKG Findings - EKG Comments: EKG Findings:: EKG demonstrates sinus rhythm with a rate of 63. TN interval 148. QRS 97. QTC of 426. No acute ST segment elevations or depressions Medical Decision Making - Medical Decision Making Was pt. sent in by a medical professional or institution (, PA, CHIEF CLINICAL DIETITIAN, urgent care, hospital, or [facility]...) When possible be specific @ -[facility] Did you speak to anyone other than the patient for history (EMS, parent, family, police, friend...)? What history was obtained from this source @ -Sister who is DPOA Did you review nursing and triage notes (agree or disagree)? Why? @ -I reviewed and agree with nursing and triage notes Were old charts reviewed (outside hosp., previous admission, EMS record, old EKG, old radiological studies, urgent care reports/EKG's, [facility] records)? Report findings @ -old charts were reviewed Differential Diagnosis (chest pain, altered mental status, abdominal pain women, abdominal pain men, vaginal bleeding, weakness, fever, dyspnea, syncope, headache, dizziness, GI bleed, back pain, seizure, CVA, palpatations, mental health, musculoskeletal)? @ -sepsis, medication effect, dehydration, uti, pneumonia EKG interpreted by me (3pts min.). @ -yes X-rays interpreted by me (1pt min.). @ -yes CT interpreted by me (1pt min.). @ -no U/S interpreted by me (1pt. min.). @ -None done What testing was considered but not performed or refused? (CT, X-rays, U/S, labs)? Why? @ -None What meds were considered but not given or refused? Why? @ -None Did you discuss the management of the patient with other professionals (professionals i.e. , PA, CHIEF CLINICAL DIETITIAN, lab, RT, psych nurse, social sciences research scientist, sharepoint designer developer, teacher, public information officer, mental health case manager)? Give summary @ -Dr. Rea Was smoking cessation discussed for >3mins.? @ -No Was critical care preformed (if so, how long)? @ -No Were there social determinants of health that impacted care today? How? (Prakash elessness, low income, unemployed, alcoholism, drug addiction, transportation, low edu. Level, literacy, decrease access to med. care, shelter, rehab)? @ -No Was there de-escalation of care discussed even if they declined (Discuss DNR or withdrawal of care, Hospice)? DNR status @ -No What co-morbidities impacted this encounter? (DM, HTN, Smoking, COPD, CAD, Cancer, CVA, ARF, Chemo, Hep., AIDS, mental health diagnosis, sleep apnea, morbid obesity)? @ -BPH, urinary incontinence, htn Was patient admitted / discharged? Hospital course, mention meds given and route, prescriptions, significant lab abnormalities, going to OR and other pertinent info. @ -On arrival the patient is placed into room 17. There are history of physical exam is performed. We did complete orthostatics which are markedly positive. He is given a liter bolus normal saline. Laboratory studies are conducted and reviewed. Urinalysis is positive for occasional bacteria. Chest x-ray demonstrates a questionable developing infiltrate. Urine culture, blood cultures are ordered. Rocephin and azithromycin are ordered. Recommended admission for fluid hydration. Patient will be admitted to [facility]. He is currently awaiting a bed on the floor in stable condition Undiagnosed new problem with uncertain prognosis? @ -Yes Drug Therapy requiring intensive monitoring for toxicity (Heparin, Nitro, Insulin, Cardizem)? @ -No Were any procedures done? @ -No Diagnosis/symptom? @ -presyncope, orthostatic hypotension, cap, uti Acute, or Chronic, or Acute on Chronic? @ -acute Uncomplicated (without systemic symptoms) or Complicated (systemic symptoms)? @ -complicated Side effects of treatment? @ -No Exacerbation, Progression, or Severe Exacerbation? @ -No Poses a threat to life or bodily function? How? (Chest pain, USA, GA, pneumonia, PE, COPD, DKA, ARF, appy, cholecystitis, CVA, Diverticulitis, Homicidal, Suicidal, threat to staff... and all critical care pts) @ -Yes - Lab Data Result diagrams: 11/12/22 06:14 11/12/22 06:14 Lab Results 11/11/22 11/11/22 11/11/22 Range/Units 12:20 12:20 12:20 WBC 6.9 (3.8-10.6) k/uL RBC 4.31 (4.30-5.90) m/uL Hgb 12.0 L (13.0-17.5) gm/dL Hct 36.7 L (39.0-53.0) % MCV 85.1 (80.0-100.0) fL MCH 27.9 (25.0-35.0) pg MCHC 32.8 (31.0-37.0) g/dL RDW 15.4 (11.5-15.5) % Plt Count 221 (150-450) k/uL MPV 7.7 Neutrophils % 83 % Lymphocytes % 10 % Monocytes % 5 % Eosinophils % 1 % Basophils % 0 % Neutrophils # 5.7 (1.3-7.7) k/uL Lymphocytes # 0.7 L (1.0-4.8) k/uL Monocytes # 0.3 (0-1.0) k/uL Eosinophils # 0.1 (0-0.7) k/uL Basophils # 0.0 (0-0.2) k/uL PT 10.6 (9.0-12.0) sec INR 1.0 (<1.2) APTT 20.7 L (22.0-30.0) sec Sodium (137-145) mmol/L Potassium (3.5-5.1) mmol/L Chloride (98-107) mmol/L Carbon Dioxide (22-30) mmol/L Anion Gap mmol/L BUN (9-20) mg/dL Creatinine (0.66-1.25) mg/dL Est GFR (CKD-EPI)AfAm (>60 ml/min/1.73 sqM) Est GFR (CKD-EPI)NonAf (>60 ml/min/1.73 sqM) Glucose (74-99) mg/dL Plasma Lactic Acid Rene (0.7-2.0) mmol/L Calcium (8.4-10.2) mg/dL Magnesium (1.6-2.3) mg/dL Total Bilirubin (0.2-1.3) mg/dL AST (17-59) U/L ALT (4-49) U/L Alkaline Phosphatase (38-126) U/L Troponin I (0.000-0.034) ng/mL NT-Pro-B Natriuret Pep pg/mL Total Protein (6.3-8.2) g/dL Albumin (3.5-5.0) g/dL Procalcitonin (0.02-0.09) ng/mL Urine Color Yellow Urine Appearance Cloudy (Clear) Urine pH 7.0 (5.0-8.0) Ur Specific [place] 1.006 (1.001-1.035) Urine Protein Trace H (Negative) Urine Glucose (UA) Negative (Negative) Urine Ketones Negative (Negative) Urine Blood Negative (Negative) Urine Nitrite Negative (Negative) Urine Bilirubin Negative (Negative) Urine Urobilinogen <2.0 (<2.0) mg/dL Ur Leukocyte Esterase Large H (Negative) Urine RBC 1 (0-5) /hpf Urine WBC 56 H (0-5) /hpf Urine Bacteria Occasional H (None) /hpf Urine Mucus Rare H (None) /hpf 11/11/22 11/11/22 11/11/22 Range/Units 12:20 12:20 12:20 WBC (3.8-10.6) k/uL RBC (4.30-5.90) m/uL Hgb (13.0-17.5) gm/dL Hct (39.0-53.0) % MCV (80.0-100.0) fL MCH (25.0-35.0) pg MCHC (31.0-37.0) g/dL RDW (11.5-15.5) % Plt Count (150-450) k/uL MPV Neutrophils % % Lymphocytes % % Monocytes % % Eosinophils % % Basophils % % Neutrophils # (1.3-7.7) k/uL Lymphocytes # (1.0-4.8) k/uL Monocytes # (0-1.0) k/uL Eosinophils # (0-0.7) k/uL Basophils # (0-0.2) k/uL PT (9.0-12.0) sec INR (<1.2) APTT (22.0-30.0) sec Sodium 134 L (137-145) mmol/L Potassium 4.5 (3.5-5.1) mmol/L Chloride 102 (98-107) mmol/L Carbon Dioxide 25 (22-30) mmol/L Anion Gap 7 mmol/L BUN 10 (9-20) mg/dL Creatinine 1.12 (0.66-1.25) mg/dL Est GFR (CKD-EPI)AfAm 78 (>60 ml/min/1.73 sqM) Est GFR (CKD-EPI)NonAf 68 (>60 ml/min/1.73 sqM) Glucose 116 H (74-99) mg/dL Plasma Lactic Acid Rene 1.5 (0.7-2.0) mmol/L Calcium 8.7 (8.4-10.2) mg/dL Magnesium 2.3 (1.6-2.3) mg/dL Total Bilirubin 0.6 (0.2-1.3) mg/dL AST 22 (17-59) U/L ALT 18 (4-49) U/L Alkaline Phosphatase 61 (38-126) U/L Troponin I <0.012 (0.000-0.034) ng/mL NT-Pro-B Natriuret Pep pg/mL Total Protein 6.0 L (6.3-8.2) g/dL Albumin 3.8 (3.5-5.0) g/dL Procalcitonin (0.02-0.09) ng/mL Urine Color Urine Appearance (Clear) Urine pH (5.0-8.0) Ur Specific [place] (1.001-1.035) Urine Protein (Negative) Urine Glucose (UA) (Negative) Urine Ketones (Negative) Urine Blood (Negative) Urine Nitrite (Negative) Urine Bilirubin (Negative) Urine Urobilinogen (<2.0) mg/dL Ur Leukocyte Esterase (Negative) Urine RBC (0-5) /hpf Urine WBC (0-5) /hpf Urine Bacteria (None) /hpf Urine Mucus (None) /hpf 11/11/22 11/11/22 Range/Units 12:20 12:20 WBC (3.8-10.6) k/uL RBC (4.30-5.90) m/uL Hgb (13.0-17.5) gm/dL Hct (39.0-53.0) % MCV (80.0-100.0) fL MCH (25.0-35.0) pg MCHC (31.0-37.0) g/dL RDW (11.5-15.5) % Plt Count (150-450) k/uL MPV Neutrophils % % Lymphocytes % % Monocytes % % Eosinophils % % Basophils % % Neutrophils # (1.3-7.7) k/uL Lymphocytes # (1.0-4.8) k/uL Monocytes # (0-1.0) k/uL Eosinophils # (0-0.7) k/uL Basophils # (0-0.2) k/uL PT (9.0-12.0) sec INR (<1.2) APTT (22.0-30.0) sec Sodium (137-145) mmol/L Potassium (3.5-5.1) mmol/L Chloride (98-107) mmol/L Carbon Dioxide (22-30) mmol/L Anion Gap mmol/L BUN (9-20) mg/dL Creatinine (0.66-1.25) mg/dL Est GFR (CKD-EPI)AfAm (>60 ml/min/1.73 sqM) Est GFR (CKD-EPI)NonAf (>60 ml/min/1.73 sqM) Glucose (74-99) mg/dL Plasma Lactic Acid Rene (0.7-2.0) mmol/L Calcium (8.4-10.2) mg/dL Magnesium (1.6-2.3) mg/dL Total Bilirubin (0.2-1.3) mg/dL AST (17-59) U/L ALT (4-49) U/L Alkaline Phosphatase (38-126) U/L Troponin I (0.000-0.034) ng/mL NT-Pro-B Natriuret Pep 154 pg/mL Total Protein (6.3-8.2) g/dL Albumin (3.5-5.0) g/dL Procalcitonin 0.05 (0.02-0.09) ng/mL Urine Color Urine Appearance (Clear) Urine pH (5.0-8.0) Ur Specific [place] (1.001-1.035) Urine Protein (Negative) Urine Glucose (UA) (Negative) Urine Ketones (Negative) Urine Blood (Negative) Urine Nitrite (Negative) Urine Bilirubin (Negative) Urine Urobilinogen (<2.0) mg/dL Ur Leukocyte Esterase (Negative) Urine RBC (0-5) /hpf Urine WBC (0-5) /hpf Urine Bacteria (None) /hpf Urine Mucus (None) /hpf Disposition Clinical Impression: Orthostatic hypotension, UTI (urinary tract infection), CAP (community acquired pneumonia) Disposition: ADMITTED IP TO THIS [facility] Condition: Serious Is patient prescribed a controlled substance at d/c from ED?: No Time of Disposition: 14:22 Decision to Admit Reason: Admit from EC Decision Date: 11/11/22 Decision Time: 14:22
[2022-11-11 12:44] LABS: Basophils % (A) 0 %; Eosinophils # (A) 0.1 k/uL (0-0.7); Eosinophils % (A) 1 %; HCT 36.7 % (39.0-53.0); Lymphocytes # (A) 0.7 k/uL (1.0-4.8); Lymphocytes % (A) 10 %; MCH 27.9 pg (25.0-35.0); MCHC 32.8 g/dL (31.0-37.0); MCV 85.1 fL (80.0-100.0); Mean Platelet Volume 7.7; Monocytes # (A) 0.3 k/uL (0-1.0); Monocytes % (A) 5 %; Neutrophils # (A) 5.7 k/uL (1.3-7.7); Neutrophils % (A) 83 %; Platelet Count 221 k/uL (150-450); RBC 4.31 m/uL (4.30-5.90); RDW 15.4 % (11.5-15.5); WBC 6.9 k/uL (3.8-10.6)
[2022-11-11] MEDS ORDERED: SODIUM CHLORIDE 0.9% 1,000 ML IV ONE (12:45)
[2022-11-11 12:49] LABS: Partial Thromboplastin Time 20.7 sec (22.0-30.0); Prothrombin Time 10.6 sec (9.0-12.0)
[2022-11-11 12:50] LABS: Appearance,Urine Cloudy (Clear); Bacteria,Urine Occasional /hpf; Bilirubin,Urine Negative (Negative); Blood,Urine Negative (Negative); Color,Urine Yellow; Glucose,Urine (UA) Negative (Negative); Ketones,Urine Negative (Negative); Leukocyte Esterase,Urine Large (Negative); Mucus,Urine Rare /hpf; Nitrite,Urine Negative (Negative); Protein,Urine Trace (Negative); RBC,Urine 1 /hpf (0-5); Specific Gravity,Urine 1.006 (1.001-1.035); Urobilinogen,Urine <2.0 mg/dL (<2.0); WBC,Urine 56 /hpf (0-5)
[2022-11-11 12:56] LABS: Albumin 3.8 g/dL (3.5-5.0); Calcium 8.7 mg/dL (8.4-10.2); Magnesium 2.3 mg/dL (1.6-2.3); Potassium 4.5 mmol/L (3.5-5.1); Total Bilirubin 0.6 mg/dL (0.2-1.3)
[2022-11-11] MEDS ORDERED: cefTRIAXone IN SWFI 1,000 MG/10 ML SYRINGE IVP STA (13:19)
--- NOTE | 2022-11-11 13:51 | XR ---
EXAMINATION TYPE: XR chest 2V DATE OF EXAM: 11/11/2022 COMPARISON: Chest x-ray May 02, 2022 HISTORY: Cough and pain. TECHNIQUE: Frontal and lateral views of the chest are obtained. FINDINGS: There is patchy left basilar linear opacity. Right lung is clear. The cardiac silhouette size is stable and within normal limits. The osseous structures are intact. IMPRESSION: Patchy left basilar linear atelectasis and/or developing acute infiltrate. Progress stud y advised.
[2022-11-11] MEDS ORDERED: NALOXONE 0.4 MG/ML 1 ML VIAL IV PRN (14:22)
[2022-11-11] MEDS ORDERED: AZITHROMYCIN 500 MG in SODIUM CHLORIDE 0.9% 250 ML IVPB STA (14:24)
[2022-11-11] MEDS ORDERED: SENNOSIDES-DOCUSATE SODIUM 1 EACH TAB PO PRN (14:48)
[2022-11-11] MEDS ORDERED: ACETAMINOPHEN TAB 500 MG TAB PO PRN (14:48)
[2022-11-11] MEDS: cloZAPine 100 MG TAB PO SCH (15:29)
[2022-11-11] MEDS: SODIUM CHLORIDE 0.9% 1,000 ML IV SCH ×2 (15:43→23:23)
--- NOTE | 2022-11-11 16:02 | P.HPIM ---
History of Present Illness H&P Date: 11/11/22 History of Presenting Illness: Patient is a very pleasant 66-year-old male with a past medical history of schizophrenia, CAD with stent x1, hypertension, and renal cancer status post cryoablation surgery. Patient presented to the emergency department from [facility] status post weakness and dizziness. Patient reports he went down for breakfast and fell asleep in the lounge and when he was awoken by staff and stood up to go back to his room he felt severely dizzy and fell backwards into the doorway, patient denies falling to the ground, hitting his he ad, or experiencing any injuries. Patient reports he lowered himself to the ground and staff at facility called EMS for transport to the hospital. Patient denies having any recent medication changes, recent illnesses, fevers, chills, diaphoresis, changes in vision or hearing, chest pain, palpitations, shortness of breath, nausea, vomiting, or experiencing any focal numbness/weakness/tingling/swelling in his extremities. Patient does report chronic cough 4 months. Patient underwent full evaluation in the emergency department. Upon arrival to facility vital signs stable with blood pressure 109/68, heart rate 62, respiratory rate 18, and SpO2 100% on room air. Orthostatic vitals were obtained and were positive with blood pressure upon lying 106/65, sitting 97/63, and standing 75/65. EKG was completed showing normal sinus rhythm at 63 bpm with no noted T-wave or ST abnormalities showing no signs of acute ischemia. Chest x-ray completed revealing patchy left basilar linear atelectasis and/or developing acute infiltrate. Labs completed and reviewed. CBC revealing mild normocytic anemia with hemoglobin stable at 12.0. BMP unremarkable with the exception of mild hyponatremia with sodium of 134. Liver profile unremarkable. Troponin less than 0.012. ProBNP 154. Urinalysis abnormal with leukocytes and 56 WBCs. Discussed patient history, laboratory and imaging findings in detail with the ED physician. Patient being admitted to observation unit with consultation to cardiology for symptomatic orthostatic hypotension. Review of systems: Pertinent positives and negatives as discussed in HPI, a complete review of systems was performed and all other systems are negative. Physical exam: Vital signs reviewed and stable. General: Nontoxic, no distress and appears stated age. Derm: Skin warm and dry, normal coloration for ethnicity. Head: Atraumatic, normocephalic and symmetric. Eyes: EOMs intact, no lid lag, and anicteric sclera Mouth: no lip lesions, mucus membranes moist Cardiovascular: regular rate and rhythm with normal S1S2, no murmur, positive posterior tibial pulses bilaterally, and cap refill < 2 seconds. Lungs: Respirations even, regular, and unlabored on room air. Lungs CTA bilaterally, no rhonchi, no rales, no wheezing, and no accessory muscle usage. Abdominal: soft, nontender to palpation, no guarding, no appreciable organomegaly Ext: ROM intact. No gross muscle atrophy, no edema, no contractures Neuro: Speech clear, face symmetrical and CN II-XII grossly intact with no noted focal neuro deficits Psych: Alert and oriented to person, place, time, and situation. Appropriate and pleasant affect. Assessment and Plan of Care: Symptomatic orthostatic hypotension Dizziness/lightheadedness secondary to above Left basilar infiltrate, rule out community-acquired pneumonia. Abnormal urinalysis Normocytic anemia History of CAD with previous stent History of hypertension History of schizophrenia -Upon arrival to facility initial vital signs stable with blood pressure 109/68, heart rate 62, respiratory rate 18, and SpO2 100% on room air. -Orthostatic vitals were obtained and were positive with blood pressure upon lying 106/65, sitting 97/63, and standing 75/65. -EKG was completed showing normal sinus rhythm at 63 bpm with no noted T-wave or ST abnormalities showing no signs of acute ischemia upon personal review and interpretation. -Chest x-ray completed in radiology report reviewed stating patchy left basilar linear atelectasis and/or developing acute infiltrate. -Labs completed and reviewed. CBC revealing mild normocytic anemia with hemoglobin stable at 12.0. BMP unremarkable with the exception of mild hypona tremia with sodium of 134. Liver profile unremarkable. Troponin less than 0.012. ProBNP 154. -Urinalysis abnormal with leukocytes and 56 WBCs. -Discussed patient history, laboratory and imaging findings in detail with the ED physician. -Patient being admitted to observation unit with telemetry. -Orthostatic vitals to be taken every shift. -Consult placed to cardiology for symptomatic orthostatic hypotension. -Echocardiogram to be completed -Patient received IV antibiotics with azithromycin and Rocephin in the emergency department secondary to abnormal urinalysis and concerns of possible pneumonia. We will continue with Rocephin 1 g IVPB daily pending urine culture and doxycycline 100 mg twice a day as patient is on antipsychotic medications which can lead to adverse reactions when combined with azithromycin. Doxycycline to be continued until pro-calcitonin results. -Pro-calcitonin ordered, urinalysis and blood cultures were obtained and sent to lab for analysis. We will follow-up on these results. -Patient received 1 L IV fluid bolus and placed on aggressive IV fluid hydration with 0.9% normal saline at 130 mL's per hour. We'll hydrate patient 24 hours to monitor for resolution of orthostatic hypotension. -Home medications reviewed. Flomax to be held secondary to orthostatic hypotension. In addition will eliminate nighttime dose of Clozaril at this time. -Fall precautions place. The patient is admitted with an anticipated greater than 2 midnight stay for e valuation of symptomatic orthostatic hypotension CODE STATUS: Full code DVT prophylaxis: Heparin Discussed with: Patient, ED physician, and RN Anticipated discharge date: Clinical course to determine Anticipated discharge place: Home Patient was seen independently by Nurse Practitioner. This document was prepared using [employer] dictation software. Please allow for errors in computer education teacher while rare they do occur. Wilfredo Kothari NP rendered care for this patient independently, reviewed the findings and plan as documented in the note above. I did not physically speak with or examine the patient on this date. Past Medical History Past Medical History: Hypertension Additional Past Medical History / Comment(s): renal CA with surgery History of Any Multi-Drug Resistant Organisms: Unobtainable Past Surgical History: Heart Catheterization With Stent, Orthopedic Surgery Additional Past Surgical History / Comment(s): cryoablation for renal CA, Heart Catheterization 04/23/2021, Past Anesthesia/Blood Transfusion Reactions: No Reported Reaction Date of Last Stent Placement:: 04/23/21 Type of Cardiac Device: Biventricular Pacemaker, Unknown Device Placement Date:: unknown Past Psychological History: Schizophrenia Smoking Status: Never smoker Past Alcohol Use History: None Reported Past Drug Use History: None Reported - Past Family History Family Family Medical History: No Reported History Medications and Allergies Home Medications Medication Instructions Recorded Confirmed Type Acetaminophen Tab [Tylenol] 1,000 mg PO Q8H PRN 12/09/20 11/11/22 History Omeprazole 40 mg PO BID@0800,2100 12/09/20 11/11/22 History Sertraline [Zoloft] 50 mg PO DAILY@0800 04/27/21 11/11/22 History Aspirin 81 mg PO DAILY@1700 07/28/21 11/11/22 History Metoprolol Tartrate [Lopressor] 25 mg PO DAILY@0800 07/28/21 11/11/22 History Sennosides-Docusate Sodium 2 tab PO DAILY PRN 02/03/22 11/11/22 History [Senokot-S] cloZAPine [Clozaril] 200 mg PO DAILY@1600 02/03/22 11/11/22 History cloZAPine [Clozaril] 400 mg PO HS@209902/03/22 11/11/22 History Atorvastatin [Lipitor] 80 mg PO HS@209907/04/22 11/11/22 History Clopidogrel [Plavix] 75 mg PO DAILY@0800 07/04/22 11/11/22 History Docusate [Colace] 100 mg PO BID@0800,1700 07/04/22 11/11/22 History Tamsulosin [Flomax] 0.4 mg PO BID@0800,209907/04/22 11/11/22 History cloZAPine [Clozaril] 100 mg PO DAILY@0800 07/04/22 11/11/22 History HYDROcodone/APAP 7.5-325MG [[place] 1 tab PO Q6HR PRN 3 Days #12 tab 07/08/22 11/11/22 Rx 7.5-325] clonazePAM [KlonoPIN] 0.5 mg PO BID 11/11/22 11/11/22 History Allergies Allergy/AdvReac Type Severity Reaction Status Date / Time No Known Allergies Allergy Verified 11/11/22 12:53 Physical Exam Vitals: Vital Signs Temp Pulse Pulse Resp BP BP BP 11/11/22 14:47 64 18 137/92 11/11/22 13:24 97.6 F 67 17 129/82 11/11/22 12:51 71 75/65 11/11/22 12:49 70 97/63 11/11/22 12:47 68 11/11/22 11:30 96.8 F L 62 18 109/68 BP Pulse Ox 11/11/22 14:47 99 11/11/22 13:24 95 11/11/22 12:51 95 11/11/22 12:49 98 11/11/22 12:47 106/65 98 11/11/22 11:30 100 Intake and Output 11/10/22 11/11/22 11/11/22 22:59 06:59 14:59 Other: Weight 76.204 kg Results CBC & Chem 7: 11/11/22 12:20 11/11/22 12:20 Labs: Abnormal Lab Results - Last 24 Hours (Table) 11/11/22 11/11/22 11/11/22 Range/Units 12:20 12:20 12:20 Hgb 12.0 L (13.0-17.5) gm/dL Hct 36.7 L (39.0-53.0) % Lymphocytes # 0.7 L (1.0-4.8) k/uL APTT 20.7 L (22.0-30.0) sec Sodium (137-145) mmol/L Glucose (74-99) mg/dL Total Protein (6.3-8.2) g/dL Urine Protein Trace H (Negative) Ur Leukocyte Esterase Large H (Negative) Urine WBC 56 H (0-5) /hpf Urine Bacteria Occasional H (None) /hpf Urine Mucus Rare H (None) /hpf 11/11/22 Range/Units 12:20 Hgb (13.0-17.5) gm/dL Hct (39.0-53.0) % Lymphocytes # (1.0-4.8) k/uL APTT (22.0-30.0) sec Sodium 134 L (137-145) mmol/L Glucose 116 H (74-99) mg/dL Total Protein 6.0 L (6.3-8.2) g/dL Urine Protein (Negative) Ur Leukocyte Esterase (Negative) Urine WBC (0-5) /hpf Urine Bacteria (None) /hpf Urine Mucus (None) /hpf
[2022-11-11] MEDS: DOCUSATE 100 MG CAP PO SCH (16:50)
[2022-11-11] MEDS: ASPIRIN 81 MG PO SCH (16:50)
[2022-11-11] MEDS: DOXYCYCLINE 100 MG CAP PO SCH (23:22)
[2022-11-11] MEDS: ATORVASTATIN 80 MG TAB PO SCH (23:22)
[2022-11-11] MEDS: PANTOPRAZOLE 40 MG TABLET PO SCH (23:23)
[2022-11-11] MEDS: HEPARIN SODIUM,PORCINE/PF 5,000 UNIT/0.5 ML SYRINGE SQ SCH (23:23)
[2022-11-12] MEDS: SODIUM CHLORIDE 0.9% 1,000 ML IV SCH ×2 (05:18→13:24)
[2022-11-12] MEDS: SERTRALINE 50 MG TAB PO SCH (08:51)
[2022-11-12] MEDS: METOPROLOL TARTRATE 25 MG TAB PO SCH (08:51)
[2022-11-12] MEDS: DOXYCYCLINE 100 MG CAP PO SCH (08:51)
[2022-11-12] MEDS: DOCUSATE 100 MG CAP PO SCH ×2 (08:51→16:05)
[2022-11-12] MEDS: PANTOPRAZOLE 40 MG TABLET PO SCH ×2 (08:52→20:32)
[2022-11-12] MEDS: HEPARIN SODIUM,PORCINE/PF 5,000 UNIT/0.5 ML SYRINGE SQ SCH ×3 (08:52→23:47)
[2022-11-12] MEDS: cloZAPine 100 MG TAB PO SCH ×3 (08:52→20:31)
[2022-11-12] MEDS: CLOPIDOGREL 75 MG TAB PO SCH (08:52)
--- NOTE | 2022-11-12 09:44 | P.CRDCN ---
History of Present Illness Consult date: 11/12/22 Reason for Consult (text): Orthostatic hypotension History of present illness: History of present illness: The patient is a 66-year-old male patient of Dr. MEGAN Vazquez with a past medical history significant for CAD with prior stenting of the RCA in the setting of a non-ST elevated AR,,hypertension and dyslipidemia, Parkinson's, dementia, recent Covid infection 3 weeks ago. We have been asked to evaluate the patient for orthostatic hypotension. Patient was brought in to the emergency center from [facility] The staff told him to get up and go to his room and when he stood he felt quite dizzy and fell backwards. He did not hit his head or loss of consciousness. His initial blood pressure was 109/68, heart rate is in the 60s. Orthostatic vital signs performed in the emergency center were positive with standing blood pressure 75/65. Patient has been started on his home cardiac medications and IV antibiotics for urinary tract infection. According to patient's nurse, he is a 2 person assist to stand. He is normally wheelchair bound and has had increasing weakness most likely secondary to worsening Parkinson's. EKG sinus rhythm with no acute ST changes. Chest x-ray patchy left basilar linear atelectasis and/or developing acute infiltrate. WBC 6.9, hemoglobin 12, platelet count 221. INR 1. Sodium 134, potassium 4.5, BUN 10 creatinine 1.12. Blood sugar 116. Lactic acid 1.5. Magnesium 2.3. Liver function tests normal. Troponin negative. ProBNP 154. Urinalysis positive for infection. Home cardiac medications: Aspirin 81 mg daily, Lipitor 80 mg at bedtime, Plavix 75 mg daily, Lopressor 25 mg daily Review Of Systems: Limited due to patient's dementia but he currently denies chest pain, shortness of breath. No lightheadedness. Physical examination: Gen: This is a 66-year-old obese male. He is resting but appears to be comfortable. VS: Reviewed HEENT: Head is atraumatic, normocephalic. Pupils equal, round. Sclerae is anicteric. NECK: Supple. No JVD. No lymphadenopathy. No thyromegaly. LUNGS: Clear to auscultation. No wheezes or rhonchi. No intercostal ret ractions. HEART: Regular rate and rhythm. No murmur. ABDOMEN: Soft. Bowel sounds are present. No masses. No tenderness. EXTREMITIES: No pedal edema. No calf tenderness. NEUROLOGICAL: Patient is awake, alert and confused. Assessment: Orthostatic hypotension Urinary tract infection Parkinson's disease CAD with prior stenting of the RCA in April 2021 Hypertension Dyslipidemia Dementia Recent Covid 19 Plan Continue patient's home cardiac medications Obtain echocardiogram Orthostatic vital signs will be canceled as patient usually not ambulatory on his own Further recommendations as patient progresses Thank you kindly for this consultation. Nurse practitioner note has been reviewed, I agree with documented findings and plan of care. Patient was seen and examined. Past Medical History Past Medical History: Hypertension Additional Past Medical History / Comment(s): renal CA with surgery History of Any Multi-Drug Resistant Organisms: Unobtainable Past Surgical History: Heart Catheterization With Stent, Orthopedic Surgery Additional Past Surgical History / Comment(s): cryoablation for renal CA, Heart Catheterization 04/23/2021, Past Anesthesia/Blood Transfusion Reactions: No Reported Reaction Date of Last Stent Placement:: 04/23/21 Type of Cardiac Device: Biventricular Pacemaker, Unknown Device Placement Date:: unknown Past Psychological History: Schizophrenia Smoking Status: Never smoker Past Alcohol Use History: None Reported Past Drug Use History: None Reported - Past Family History Family Family Medical History: No Reported History Medications and Allergies Home Medications Medication Instructions Recorded Confirmed Type Acetaminophen Tab [Tylenol] 1,000 mg PO Q8H PRN 12/09/20 11/11/22 History Omeprazole 40 mg PO BID@0800,2100 12/09/20 11/11/22 History Sertraline [Zoloft] 50 mg PO DAILY@0800 04/27/21 11/11/22 History Aspirin 81 mg PO DAILY@1700 07/28/21 11/11/22 History Metoprolol Tartrate [Lopressor] 25 mg PO DAILY@0800 07/28/21 11/11/22 History Sennosides-Docusate Sodium 2 tab PO DAILY PRN 02/03/22 11/11/22 History [Senokot-S] cloZAPine [Clozaril] 200 mg PO DAILY@1600 02/03/22 11/11/22 History cloZAPine [Clozaril] 400 mg PO HS@2100 02/03/22 11/11/22 History Atorvastatin [Lipitor] 80 mg PO HS@2100 07/04/22 11/11/22 History Clopidogrel [Plavix] 75 mg PO DAILY@0800 07/04/22 11/11/22 History Docusate [Colace] 100 mg PO BID@0800,1700 07/04/22 11/11/22 History Tamsulosin [Flomax] 0.4 mg PO BID@0800,2100 07/04/22 11/11/22 History cloZAPine [Clozaril] 100 mg PO DAILY@0800 07/04/22 11/11/22 History HYDROcodone/APAP 7.5-325MG [Mittie 1 tab PO Q6HR PRN 3 Days #12 tab 07/08/22 Rx 7.5-325] clonazePAM [KlonoPIN] 0.5 mg PO BID 11/11/22 11/11/22 History Allergies Allergy/AdvReac Type Severity Reaction Status Date / Time No Known Allergies Allergy Verified 11/11/22 12:53 Physical Exam Vitals: Vital Signs Temp Pulse Pulse Resp BP BP BP 11/12/22 01:54 97.7 F 76 16 11/11/22 20:00 70 16 168/92 11/11/22 18:30 69 18 163/98 11/11/22 17:33 68 18 158/97 11/11/22 14:47 64 18 137/92 11/11/22 13:24 97.6 F 67 17 129/82 11/11/22 12:51 71 75/65 11/11/22 12:49 70 97/63 11/11/22 12:47 68 11/11/22 11:30 96.8 F L 62 18 109/68 BP Pulse Ox 11/12/22 01:54 133/87 95 11/11/22 20:00 99 11/11/22 18:30 98 11/11/22 17:33 99 11/11/22 14:47 99 11/11/22 13:24 95 11/11/22 12:51 95 11/11/22 12:49 98 11/11/22 12:47 106/65 98 11/11/22 11:30 100 Intake and Output 11/11/22 11/12/22 11/12/22 22:59 06:59 14:59 Output Total 1800 Balance -1800 Output: Urine 1800 Other: # Voids 1 Weight 76.204 kg Results 11/11/22 12:20 11/11/22 12:20 Cardiac Enzymes 11/11/22 11/11/22 Range/Units 12:20 12:20 AST 22 (17-59) U/L Troponin I <0.012 (0.000-0.034) ng/mL Coagulation 11/11/22 Range/Units 12:20 PT 10.6 (9.0-12.0) sec APTT 20.7 L (22.0-30.0) sec CBC 11/11/22 Range/Units 12:20 WBC 6.9 (3.8-10.6) k/uL RBC 4.31 (4.30-5.90) m/uL Hgb 12.0 L (13.0-17.5) gm/dL Hct 36.7 L (39.0-53.0) % Plt Count 221 (150-450) k/uL Comprehensive Metabolic Panel 11/11/22 Range/Units 12:20 Sodium 134 L (137-145) mmol/L Potassium 4.5 (3.5-5.1) mmol/L Chloride 102 (98-107) mmol/L Carbon Dioxide 25 (22-30) mmol/L BUN 10 (9-20) mg/dL Creatinine 1.12 (0.66-1.25) mg/dL Glucose 116 H (74-99) mg/dL Calcium 8.7 (8.4-10.2) mg/dL AST 22 (17-59) U/L ALT 18 (4-49) U/L Alkaline Phosphatase 61 (38-126) U/L Total Protein 6.0 L (6.3-8.2) g/dL Albumin 3.8 (3.5-5.0) g/dL Current Medications Generic Name Dose Route Start Last Admin Trade Name Freq PRN Reason Stop Dose Admin Acetaminophen 1,000 mg 11/11/22 14:48 Acetaminophen Tab 500 Mg Tab PO Q8H PRN Fever and/ or Pain Aspirin 81 mg 11/11/22 17:00 11/11/22 16:50 Aspirin 81 Mg PO 81 mg DAILY@1700 [facility] Administration Atorvastatin Calcium 80 mg 11/11/22 21:00 11/11/22 23:22 Atorvastatin 80 Mg Tab PO 80 mg HS@2100 JEAN Administration Clopidogrel Bisulfate 75 mg 11/12/22 08:00 Clopidogrel 75 Mg Tab PO DAILY@0800 [facility] Clozapine 100 mg 11/12/22 08:00 Clozapine 100 Mg Tab PO 11/19/22 23:00 DAILY@0800 [facility] Clozapine 200 mg 11/11/22 16:00 11/11/22 15:29 Clozapine 100 Mg Tab PO 11/19/22 23:00 200 mg DAILY@1600 [facility] Administration Docusate Sodium 100 mg 11/11/22 17:00 11/11/22 16:50 Docusate 100 Mg Cap PO 100 mg BID@0800,1700 JEAN Administration Doxycycline Monohydrate 100 mg 11/11/22 21:00 11/11/22 23:22 Doxycycline 100 Mg Cap PO 100 mg BID JEAN Administration Protocol Heparin Sodium (Porcine) 5,000 unit 11/12/22 00:00 11/11/22 23:23 Heparin Sodium,Porcine/Pf 5,000 Unit/0.5 Ml Syringe SQ Not Given Q8HR [facility] Sodium Chloride 1,000 mls @ 130 mls/hr 11/11/22 14:30 11/12/22 05:18 Saline 0.9% IV 130 mls/hr .[id number] [facility] Administration Ceftriaxone Sodium 1 gm/ 50 mls @ 100 mls/hr 11/12/22 09:00 Sodium Chloride IVPB Q24HR [facility] Protocol Metoprolol Tartrate 25 mg 11/12/22 08:00 Metoprolol Tartrate 25 Mg Tab PO DAILY@0800 [facility] Naloxone HCl 0.2 mg 11/11/22 14:22 Naloxone 0.4 Mg/Ml 1 Ml Vial IV Q2M PRN Opioid Reversal Pantoprazole Sodium 40 mg 11/11/22 21:00 11/11/22 23:23 Pantoprazole 40 Mg Tablet PO 40 mg BID@0800,2100 [facility] Administration Senna/Docusate Sodium 2 each 11/11/22 14:48 Sennosides-Docusate Sodium 1 Each Tab PO DAILY PRN Constipation Sertraline HCl 50 mg 11/12/22 08:00 Sertraline 50 Mg Tab PO DAILY@0800 [facility] Intake and Output 11/11/22 11/12/22 11/12/22 22:59 06:59 14:59 Output Total 1800 Balance -1800 Output: Urine 1800 Other: # Voids 1 Weight 76.204 kg 11/11/22 12:20 04/18/23 12:20
[2022-11-12 10:55] LABS: Basophils # (A) 0.02 X 10*3/uL (0.00-0.10); Basophils % (A) 0.3 %; Eosinophils % (A) 2.6 %; HCT 39.2 % (39.6-50.0); HGB 12.5 g/dL (13.0-17.0); Immature Grans, Automated 0.3 %; Lymphocytes % (A) 19.7 %; MCH 27.1 pg (27.0-32.0); MCHC 31.9 g/dL (32.0-37.0); MCV 84.8 fL (80.0-97.0); Mean Platelet Volume 10.9 fL (9.5-12.2); Monocytes # (A) 0.51 X 10*3/uL (0.20-1.00); Monocytes % (A) 6.7 %; NRBC Per 100 WBC 0 /100 WBCS (0.0-0.0); Neutrophils # (A) 5.37 X 10*3/uL (1.80-7.70); Neutrophils % (A) 70.4 %; Platelet Count 229 X 10*3/uL (140-440); RBC 4.62 X 10*6/uL (4.40-5.60); RDW 16.4 % (11.5-14.5); WBC 7.62 X 10*3/uL (4.50-10.00)
[2022-11-12 11:24] LABS: African American GFR (CKD) 102.1 (60.0-200.0); Anion Gap 7.8 mmol/L (10.00-18.00); BUN/Creat Ratio 7.78 Ratio (12.00-20.00); Calcium 8.4 mg/dL (8.7-10.3); Carbon Dioxide 23.2 mmol/L (20.0-27.5); Non-African American GFR(CKD) 88.1 (60.0-200.0); Potassium 4.2 mmol/L (3.5-5.5)
--- NOTE | 2022-11-12 11:52 | CA ---
Transthoracic Echo Report Name: González Russell Age: 66 Gender: M : 1955 Exam Date: 11/12/2022 08:05 Exam Location: [place] Echo Ht (in): 73 Wt (lb): 168 Ordering Physician: Wilfredo Kothari Attending/Referring Phys: Research Phlebotomist Xavier Nance RDCS Procedure CPT: Indications: Evaluate function and structure of heart Cardiac Hx: HTN Technical Quality: Fair Contrast 1: Total Dose (mL): Contrast 2: Total Dose (mL): MEASUREMENTS (Male / Female) Normal Values 2D ECHO LV Diastolic Diameter PLAX 3.9 cm 4.2 - 5.9 / 3.9 - 5.3 cm LV Systolic Diameter PLAX 2.7 cm LV Fractional Shortening PLAX 31.0 % IVS Diastolic Thickness 1.0 cm 0.6 - 1.0 / 0.6 - 0.9 cm IVS Systolic Thickness 1.3 cm LVPW Diastolic Thickness 1.3 cm 0.6 - 1.0 / 0.6 - 0.9 cm LVPW Systolic Thickness 1.6 cm LV Relative Wall Thickness 0.6 RV Internal Dim ED PLAX 3.6 cm LVOT Diameter 2.4 cm LA Systolic Diameter LX 3.4 cm 3.0 - 4.0 / 2.7 - 3.8 cm LV Diastolic Volume MOD BP 82.7 cm??? 67 - 155 / 56 - 104 cm??? LV Systolic Volume MOD BP 36.7 cm??? 22 - 58 / 19 - 49 cm??? LV Ejection Fraction MOD BP 55.6 % >= 55 % LV Stroke Volume MOD BP 46.0 cm??? LV Diastolic Volume MOD 4C 74.7 cm??? LV Systolic Volume MOD 4C 43.7 cm??? LV Ejection Fraction MOD 4C 41.5 % LV Stroke Volume MOD 4C 31.0 cm??? LV Diastolic Length 4C 8.6 cm LV Systolic Length 4C 6.6 cm LV Diastolic Volume MOD 2C 77.2 cm??? LV Systolic Volume MOD 2C 30.0 cm??? LV Ejection Fraction MOD 2C 61.1 % LV Stroke Volume MOD 2C 47.2 cm??? LV Diastolic Length 2C 7.2 cm LV Systolic Length 2C 6.3 cm Ascending Aorta Diameter 2.5 cm M-MODE Aortic Root Diameter MM 3.0 cm LA Systolic Diameter MM 3.8 cm LA Ao Ratio MM 1.3 MV E Point Septal Separation 1.0 cm AV Cusp Separation MM 1.9 cm DOPPLER AV Peak Velocity 109.4 cm/s AV Peak Gradient 4.8 mmHg MV Deceleration [place] 193.2 cm/s??? Mitral E Point Velocity 50.0 cm/s Mitral A Point Velocity 75.2 cm/s Mitral E to A Ratio 0.7 MV Deceleration Time 258.9 ms MV E' Velocity 6.4 cm/s Mitral E to MV E' Ratio 7.9 TR Peak Velocity 91.3 cm/s TR Peak Gradient 3.3 mmHg Right Ventricular Systolic Press 8.3 mmHg PV Peak Velocity 60.2 cm/s PV Peak Gradient 1.5 mmHg FINDINGS Left Ventricle Left ventricular ejection fraction is estimated at 55-60 %. Grade 1 diastolic dysfunction. Right Ventricle Normal right ventricular size and function. Right Atrium Normal right atrial size. Left Atrium Normal left atrial size. Mitral Valve Structurally normal mitral valve. Trace to mild mitral regurgitation. Aortic Valve Trileaflet aortic valve. Tricuspid Valve Mild tricuspid regurgitation. Pulmonic Valve Trace to mild pulmonic regurgitation. Pericardium Normal pericardium. No pericardial effusion. Aorta Normal size aortic root and proximal ascending aorta. CONCLUSIONS Normal LV function Previewed by: Dr. Jacob Aguayo MD (Electronically Signed) Final Date: 12 November 2022 11:51
[2022-11-12] MEDS: ASPIRIN 81 MG PO SCH (16:05)
--- NOTE | 2022-11-12 17:29 | P.PN ---
Subjective Progress Note Date: 11/12/22 History of Presenting Illness: Patient is a very pleasant 66-year-old male with a past medical history of schizophrenia, CAD with stent x1, hypertension, and renal cancer status post cr yoablation surgery. Patient presented to the emergency department from [facility] status post weakness and dizziness. Patient reports he went down for breakfast and fell asleep in the lounge and when he was awoken by staff and stood up to go back to his room he felt severely dizzy and fell backwards into the doorway, patient denies falling to the ground, hitting his head, or experiencing any injuries. Patient reports he lowered himself to the ground and staff at facility called EMS for transport to the hospital. Patient denies having any recent medication changes, recent illnesses, fevers, chills, diaphoresis, changes in vision or hearing, chest pain, palpitations, shortness of breath, nausea, vomiting, or experiencing any focal numbness/weakness/tingling/swelling in his extremities. Patient does report chronic cough 4 months. Patient underwent full evaluation in the emergency department. Upon arrival to facility vital signs stable with blood pressure 109/68, heart rate 62, respiratory rate 18, and SpO2 100% on room air. Orthostatic vitals were obtained and were positive with blood pressure upon lying 106/65, sitting 97/63, and standing 75/65. EKG was completed showing normal sinus rhythm at 63 bpm with no noted T-wave or ST abnormalities showing no signs of acute ischemia. Chest x-ray completed revealing patchy left basilar linear atelectasis and/or developing acute infiltrate. Labs completed and reviewed. CBC revealing mild normocytic anemia with hemoglobin stable at 12.0. BMP unremarkable with the exception of mild hyponatremia with sodium of 134. Liver profile unremarkable. Troponin less than 0.012. ProBNP 154. Urinalysis abnormal with leukocytes and 56 WBCs. Discussed patient history, laboratory and imaging findings in detail with the ED physician. Patient being admitted to observation unit with consultation to cardiology for symptomatic orthostatic hypotension. Physical exam: Pt was seen and fully evaluated at bedside this morning. Patient continues to have orthostatic hypotension. Patient states he is not dizzy upon lying down or sitting up but does still continue to have dizziness/lightheadedness upon standing. APURVA hose being placed on at this time. Patient reports that he does live in independent senior apartments and typically ambulates independently. Patient states he does have a wheelchair at home if needed, but typically does not use. Patient denies having any other complaints or concerns at this time including headache, changes in vision or hearing, dysphasia, difficulties with her changes in speech, neck pain, back pain, chest pain, nausea, vomiting, or experiencing any numbness/tingling/weakness in his extremities. Vital signs reviewed and stable. General: Nontoxic, no distress and appears stated age. Derm: Skin warm and dry, normal coloration for ethnicity. Head: Atraumatic, normocephalic and symmetric. Eyes: EOMs intact, no lid lag, and anicteric sclera Mouth: no lip lesions, mucus membranes moist Cardiovascular: regular rate and rhythm with normal S1S2, no murmur, positive posterior tibial pulses bilaterally, and cap refill < 2 seconds. Lungs: Respirations even, regular, and unlabored on room air. Lungs CTA bilaterally, no rhonchi, no rales, no wheezing, and no accessory muscle usage. Abdominal: soft, nontender to palpation, no guarding, no appreciable organomega ly Ext: ROM intact. No gross muscle atrophy, no edema, no contractures Neuro: Speech clear, face symmetrical and CN II-XII grossly intact with no noted focal neuro deficits Psych: Alert and oriented to person, place, time, and situation. Appropriate and pleasant affect. Assessment and Plan of Care: Symptomatic orthostatic hypotension Dizziness/lightheadedness secondary to above Left basilar infiltrate, rule out community-acquired pneumonia. UTI Normocytic anemia, stable History of CAD with previous stent History of hypertension History of schizophrenia -Cardiology was consulted for symptomatic orthostatic hypotension. Discussed plan of care with cardiac CABLE STRANDER whom stated patient cleared from cardiac standpoint. -Echocardiogram completed and report reviewed,showing preserved EF of 55-60% w ith no reported valvular or structural abnormalities. -APURVA hose to be placed. -Pro-calcitonin reviewed resulting at 0.05, doxycycline discontinued at this time . -Urinalysis and blood cultures pending. We will continue with IV antibiotic Rocephin 1 g every 24 hours for treatment of UTI pending these results. -Patient received 1 L IV fluid hydration. Showing minimal improvement in orthostatic hypotension. -Flomax to be held secondary to orthostatic hypotension. -We will reinitiate nighttime dose of Clozaril at this time as it is unlikely source of orthostatic hypotension as pt reports unchanged dose in years. -Fall precautions to remain in place. -PT/OT consulted. CODE STATUS: Full code DVT prophylaxis: Heparin Discussed with: Patient, ED physician, and RN Anticipated discharge date: likely discharge within the next 24-[address]: Home Patient was seen independently by Nurse Practitioner. This document was prepared using [employer] dictation software. Please allow for errors in derrick boat leverman while rare they do occur. Wilfredo Kothari NP rendered care for this patient independently, reviewed the findings and plan as documented in the note above. I did not physically speak with or examine the patient on this date. Objective - Vital Signs Vital signs: Vital Signs Temp 98.1 F 11/12/22 07:00 Pulse 80 11/12/22 07:00 Resp 16 11/12/22 07:00 BP 167/97 11/12/22 07:00 Pulse Ox 97 11/12/22 07:00 FiO2 Intake & Output 11/11/22 11/12/22 11/12/22 18:59 06:59 18:59 Output Total 1800 Balance -1800 Weight 76.204 kg Output: Urine 1800 Other: # Voids 1 - Labs CBC & Chem 7: 11/12/22 06:14 11/12/22 06:14 Labs: Abnormal Lab Results - Last 24 Hours (Table) 11/11/22 11/11/22 11/11/22 Range/Units 12:20 12:20 12:20 Hgb 12.0 L (13.0-17.5) gm/dL Hct 36.7 L (39.0-53.0) % Lymphocytes # 0.7 L (1.0-4.8) k/uL APTT 20.7 L (22.0-30.0) sec Sodium (137-145) mmol/L Glucose (74-99) mg/dL Total Protein (6.3-8.2) g/dL Urine Protein Trace H (Negative) Ur Leukocyte Esterase Large H (Negative) Urine WBC 56 H (0-5) /hpf Urine Bacteria Occasional H (None) /hpf Urine Mucus Rare H (None) /hpf 11/11/22 Range/Units 12:20 Hgb (13.0-17.5) gm/dL Hct (39.0-53.0) % Lymphocytes # (1.0-4.8) k/uL APTT (22.0-30.0) sec Sodium 134 L (137-145) mmol/L Glucose 116 H (74-99) mg/dL Total Protein 6.0 L (6.3-8.2) g/dL Urine Protein (Negative) Ur Leukocyte Esterase (Negative) Urine WBC (0-5) /hpf Urine Bacteria (None) /hpf Urine Mucus (None) /hpf Microbiology - Last 24 Hours (Table) 11/11/22 12:20 Urine Culture - Preliminary Urine,Voided
[2022-11-12] MEDS: ATORVASTATIN 80 MG TAB PO SCH (20:32)
[2022-11-13] MEDS: SERTRALINE 50 MG TAB PO SCH (08:48)
[2022-11-13] MEDS: CLOPIDOGREL 75 MG TAB PO SCH (08:48)
[2022-11-13] MEDS: HEPARIN SODIUM,PORCINE/PF 5,000 UNIT/0.5 ML SYRINGE SQ SCH ×2 (08:48→16:19)
[2022-11-13] MEDS: DOCUSATE 100 MG CAP PO SCH ×2 (08:48→16:18)
[2022-11-13] MEDS: cloZAPine 100 MG TAB PO SCH ×3 (08:49→21:10)
[2022-11-13] MEDS: PANTOPRAZOLE 40 MG TABLET PO SCH ×2 (08:49→21:11)
[2022-11-13] MEDS: METOPROLOL TARTRATE 25 MG TAB PO SCH (08:49)
--- NOTE | 2022-11-13 12:57 | P.PN ---
Subjective Progress Note Date: 11/13/22 History of present illness: The patient is a 66-year-old male patient of Dr. MEGAN Vazquez with a past medical history significant for CAD with prior stenting of the RCA in the setting of a non-ST elevated IL,,hypertension and dyslipidemia, Parkinson's, dementia, recent Covid infection 3 weeks ago. We have been asked to evaluate the patient for orthostatic hypotension. Patient was brought in to the emergency center from [facility] after [facility] The staff told him to get up and go to his room and when he stood he felt quite dizzy and fell backwards. He did not hit his head or loss of consciousness. His initial blood pressure was 109/68, heart rate is in the 60s. Orthostatic vital signs performed in the emergency center were positive with standing blood pressure 75/65. Patient has been started on his home cardiac medications and IV antibiotics for urinary tract infection. According to patient's nurse, he is a 2 person assist to stand. He is normally wheelchair bound and has had increasing weakness most likely secondary to worsening Parkinson's. EKG sinus rhythm with no acute ST changes. Chest x-ray patchy left basilar linear atelectasis and/or developing acute infiltrate. WBC 6.9, hemoglobin 12, platelet count 221. INR 1. Sodium 134, potassium 4.5, BUN 10 creatinine 1.12. Blood sugar 116. Lactic acid 1.5. Magnesium 2.3. Liver function tests normal. Troponin negative. ProBNP 154. Urinalysis positive for infection. Home cardiac medications: Aspirin 81 mg daily, Lipitor 80 mg at bedtime, Plavix 75 mg daily, Lopressor 25 mg daily 11/13 Patient is seen today in follow-up. No issues overnight. Blood pressure 152/92, heart rate in the 70s. Echocardiogram reveals normal LV function. Physical examination: Gen: This is a 66-year-old obese male. He is resting but appears to be comfortable. VS: Reviewed HEENT: Head is atraumatic, normocephalic. Pupils equal, round. Sclerae is anicteric. NECK: Supple. No JVD. No lymphadenopathy. No thyromegaly. LUNGS: Clear to auscultation. No wheezes or rhonchi. No intercostal retractions. HEART: Regular rate and rhythm. No murmur. ABDOMEN: Soft. Bowel sounds are present. No masses. No tenderness. EXTREMITIES: No pedal edema. No calf tenderness. NEUROLOGICAL: Patient is awake, alert and confused. Assessment: Orthostatic hypotension Urinary tract infection Parkinson's disease CAD with prior stenting of the RCA in April 2021 Hypertension Dyslipidemia Dementia Recent Covid 19 Plan Continue patient's home cardiac medications Patient is cleared from cardiology may follow-up in the office with Dr. Vazquez in 2 weeks. Nurse practitioner note has been reviewed, I agree with documented findings and plan of care. Patient was seen and examined. Objective - Vital Signs Vital signs: Vital Signs Temp 97.7 F 11/13/22 06:28 Pulse 79 11/13/22 06:28 Resp 16 11/13/22 06:28 BP 152/92 11/13/22 06:28 Pulse Ox 98 11/13/22 06:28 FiO2 Intake & Output 11/12/22 11/13/22 11/13/22 18:59 06:59 18:59 Intake Total 598 400 Output Total 1700 Balance -1102 400 Intake: Oral 598 400 Output: Urine 1700 Other: Voiding Method External Catheter External Catheter - Labs CBC & Chem 7: 11/12/22 06:14 11/12/22 06:14 Labs: Abnormal Lab Results - Last 24 Hours (Table) 11/12/22 11/12/22 Range/Units 06:14 06:14 Hgb 12.5 L (13.0-17.0) g/dL Hct 39.2 L (39.6-50.0) % MCHC 31.9 L (32.0-37.0) g/dL RDW 16.4 H (11.5-14.5) % Anion Gap 7.80 L (10.00-18.00) mmol/L BUN 7.0 L (9.0-27.0) mg/dL BUN/Creatinine Ratio 7.78 L (12.00-20.00) Ratio Calcium 8.4 L (8.7-10.3) mg/dL Microbiology - Last 24 Hours (Table) 11/11/22 12:20 Urine Culture - Preliminary Urine,Voided Gram Neg Bacilli
--- NOTE | 2022-11-13 15:48 | P.PN ---
Subjective Progress Note Date: 11/13/22 History of Presenting Illness: Patient is a very pleasant 66-year-old male with a past medical history of schizophrenia, CAD with stent x1, hypertension, and renal cancer status post cr yoablation surgery. Patient presented to the emergency department from [facility] status post weakness and dizziness. Patient reports he went down for breakfast and fell asleep in the lounge and when he was awoken by staff and stood up to go back to his room he felt severely dizzy and fell backwards into the doorway, patient denies falling to the ground, hitting his head, or experiencing any injuries. Patient reports he lowered himself to the ground and staff at facility called EMS for transport to the hospital. Patient denies having any recent medication changes, recent illnesses, fevers, chills, diaphoresis, changes in vision or hearing, chest pain, palpitations, shortness of breath, nausea, vomiting, or experiencing any focal numbness/weakness/tingling/swelling in his extremities. Patient does report chronic cough 4 months. Patient underwent full evaluation in the emergency department. Upon arrival to facility vital signs stable with blood pressure 109/68, heart rate 62, respiratory rate 18, and SpO2 100% on room air. Orthostatic vitals were obtained and were positive with blood pressure upon lying 106/65, sitting 97/63, and standing 75/65. EKG was completed showing normal sinus rhythm at 63 bpm with no noted T-wave or ST abnormalities showing no signs of acute ischemia. Chest x-ray completed revealing patchy left basilar linear atelectasis and/or developing acute infiltrate. Labs completed and reviewed. CBC revealing mild normocytic anemia with hemoglobin stable at 12.0. BMP unremarkable with the exception of mild hyponatremia with sodium of 134. Liver profile unremarkable. Troponin less than 0.012. ProBNP 154. Urinalysis abnormal with leukocytes and 56 WBCs. Discussed patient history, laboratory and imaging findings in detail with the ED physician. Patient being admitted to observation unit with consultation to cardiology for symptomatic orthostatic hypotension. Physical exam: Pt was seen and fully evaluated at bedside this morning. Patient continues to have orthostatic hypotension. Patient states he is not dizzy upon lying down or sitting up but does still continue to have dizziness/lightheadedness upon standing. APURVA hose being placed on at this time. Patient reports that he does live in independent senior apartments and typically ambulates independently. Patient states he does have a wheelchair at home if needed, but typically does not use. Patient denies having any other complaints or concerns at this time including headache, changes in vision or hearing, dysphasia, difficulties with her changes in speech, neck pain, back pain, chest pain, nausea, vomiting, or experiencing any numbness/tingling/weakness in his extremities. Vital signs reviewed and stable. General: Nontoxic, no distress and appears stated age. Derm: Skin warm and dry, normal coloration for ethnicity. Head: Atraumatic, normocephalic and symmetric. Eyes: EOMs intact, no lid lag, and anicteric sclera Mouth: no lip lesions, mucus membranes moist Cardiovascular: regular rate and rhythm with normal S1S2, no murmur, positive posterior tibial pulses bilaterally, and cap refill < 2 seconds. Lungs: Respirations even, regular, and unlabored on room air. Lungs CTA bilaterally, no rhonchi, no rales, no wheezing, and no accessory muscle usage. Abdominal: soft, nontender to palpation, no guarding, no appreciable organomega ly Ext: ROM intact. No gross muscle atrophy, no edema, no contractures Neuro: Speech clear, face symmetrical and CN II-XII grossly intact with no noted focal neuro deficits Psych: Alert and oriented to person, place, time, and situation. Appropriate and pleasant affect. Assessment and Plan of Care: Gram negative bacilli UTI, sensitivity report pending Symptomatic orthostatic hypotension Dizziness/lightheadedness secondary to above Left basilar infiltrate, pro-calcitonin negative. Patient asymptomatic for respiratory complaints. Pneumonia ruled out. Normocytic anemia, stable History of CAD with previous stent History of hypertension History of schizophrenia -Urine cultures positive for gram-negative bacilli, patient has history of Klebsiella pneumoniae, Klebsiella rhinosclematis, and Aeromonas hidrophila with previous resistance reported. Patient to remain on Rocephin 1 g every 24 hours at this time as previous culture was susceptible to Rocephin. Will need sensitivity report to ensure patient being discharged home on appropriate antibiotic. Discharge pending results. -Cardiology was consulted for symptomatic orthostatic hypotension. Discussed plan of care with cardiac WING COMMANDER whom stated patient cleared from cardiac standpoint. -Echocardiogram completed and report reviewed,showing preserved EF of 55-60% with no reported valvular or structural abnormalities. -APURVA hose when out of bed. -Blood cultures showing no growth to date. -Patient received 1 L IV fluid hydration. Showing minimal improvement in orthostatic hypotension. -Flomax held secondary to orthostatic hypotension and need to continue antipsychotic medication, Clozaril.. -Fall precautions to remain in place. -PT/OT following CODE STATUS: Full code DVT prophylaxis: Heparin Discussed with: Patient, ED physician, and RN Anticipated discharge date: Patient to be discharged once urine sensitivity report is available. Anticipated discharge place: Home, return to [facility] [place] with home care. Patient was seen independently by Nurse Practitioner. This document was prepared using [employer] dictation software. Please allow for errors in supervisor beater room while rare they do occur. Wilfredo Kothari NP rendered care for this patient independently, reviewed the findings and plan as documented in the note above. I did not physically speak with or examine the patient on this joyce Objective - Vital Signs Vital signs: Vital Signs Temp 97.7 F 11/13/22 06:28 Pulse 79 11/13/22 06:28 Resp 16 11/13/22 09:54 BP 152/92 11/13/22 06:28 Pulse Ox 98 11/13/22 06:28 FiO2 Intake & Output 11/12/22 11/13/22 11/13/22 18:59 06:59 18:59 Intake Total 598 400 240 Output Total 1700 1650 Balance -1102 400 -1410 Intake: Oral 598 400 240 Output: Urine 1700 1650 Other: Voiding Method External Catheter External Catheter Urinal - Labs CBC & Chem 7: 11/12/22 06:14 11/12/22 06:14 Labs: Microbiology - Last 24 Hours (Table) 11/11/22 14:16 Blood Culture - Preliminary Blood 11/11/22 12:20 Urine Culture - Preliminary Urine,Voided Gram Neg Bacilli
[2022-11-13] MEDS: ASPIRIN 81 MG PO SCH (16:18)
[2022-11-13] MEDS: ATORVASTATIN 80 MG TAB PO SCH (21:10)
[2022-11-14] MEDS: HEPARIN SODIUM,PORCINE/PF 5,000 UNIT/0.5 ML SYRINGE SQ SCH ×2 (00:27→08:37)
[2022-11-14 07:59] VITALS: BP 109/69; PULSE 77; RESP 16; TEMP 97.9
[2022-11-14] MEDS: cloZAPine 100 MG TAB PO SCH (08:31)
[2022-11-14] MEDS: CLOPIDOGREL 75 MG TAB PO SCH (08:32)
[2022-11-14] MEDS: DOCUSATE 100 MG CAP PO SCH (08:32)
[2022-11-14] MEDS: PANTOPRAZOLE 40 MG TABLET PO SCH (08:32)
[2022-11-14] MEDS: METOPROLOL TARTRATE 25 MG TAB PO SCH (08:32)
[2022-11-14] MEDS: SERTRALINE 50 MG TAB PO SCH (08:32)
--- NOTE | 2022-11-14 11:58 | P.DS ---
Providers Date of admission: 11/11/22 14:24 Expected date of discharge: 11/14/22 Attending physician: Thaddeus Cain MD Consults: 11/11/22 17:50 Consult Physician Routine Consulting Provider: Josh Ibarra Consult Reason/Comments: Orthostatic hypotension Do you want consulting provider notified?: Yes Primary care physician: [facility] Course: Gram negative bacilli UTI, sensitivity report pending Symptomatic orthostatic hypotension Dizziness/lightheadedness secondary to above Left basilar infiltrate, pro-calcitonin negative. Patient asymptomatic for respiratory complaints. Pneumonia ruled out. Normocytic anemia, stable History of CAD with previous stent History of hypertension History of schizophrenia Hospital Course: Patient is a very pleasant 66-year-old male with a past medical history of schizophrenia, CAD with stent x1, hypertension, and renal cancer status post cryoablation surgery who presented to the emergency department from [facility] status post weakness and dizziness. Upon arrival to facility vital signs stable with blood pressure 109/68, heart rate 62, respiratory rate 18, and SpO2 100% on room air. Orthostatic vitals were obtained and were positive with blood pressure upon lying 106/65, sitting 97/63, and standing 75/65. EKG was completed showing normal sinus rhythm at 63 bpm with no noted T-wave or ST abnormalities showing no signs of acute ischemia. Chest x-ray completed revealing patchy left basilar linear atelectasis and/or developing acute infiltrate. Labs completed and reviewed. CBC revealing mild normocytic anemia with hemoglobin stable at 12.0. BMP unremarkable with the exception of mild hyponatremia with sodium of 134. Liver profile unremarkable. Troponin less than 0.012. ProBNP 154. Urinalysis abnormal with leukocytes and 56 WBCs. Discussed patient history, laboratory and imaging findings in detail with the ED physician. Patient was admitted to observation unit with consultation to cardiology for symptomatic orthostatic hypotension. His flomax was discontinued and he was given IVF and orthostatics improved. He was noted to have UTI and started on ceftriaxone, which he received for 3 doses, then discharged with an additional 4 days of cefdinir. Patient returned to baseline by time of discharge, he will f/u with PCP and will be d/c'd with home care services. I spent 36 minutes coordinating this discharge on 11/14 Gen: awake, alert HEENT: normocephalic, atraumatic, good hearing acuity, moist mucous membranes Resp: good air exchange, breathing comfortably with no accessory muscle use CVS: good distal perfusion x 4, GI: soft, NTTP, ND : no SPT, no CVAT, agiuar catheter not present MSK: no pitting edema, no clubbing Neuro: non-focal, moving all extremities Psych: cooperative, euthymic mood Patient Condition at Discharge: Good Plan - Discharge Summary Discharge Rx Participant: No New Discharge Prescriptions: New Cefdinir [Omnicef] 300 mg PO Q12HR #8 capsule Continue Omeprazole 40 mg PO BID@0800,2100 Acetaminophen Tab [Tylenol] 1,000 mg PO Q8H PRN PRN Reason: Fever And/ Or Pain Metoprolol Tartrate [Lopressor] 25 mg PO DAILY@0800 cloZAPine [Clozaril] 400 mg PO HS@2100 Sennosides-Docusate Sodium [Senokot-S] 2 tab PO DAILY PRN PRN Reason: Constipation HYDROcodone/APAP 7.5-325MG [[place] 7.5-325] 1 tab PO Q6HR PRN 3 Days #12 tab PRN Reason: Pain Sertraline [Zoloft] 50 mg PO DAILY@0800 Aspirin 81 mg PO DAILY@1700 cloZAPine [Clozaril] 200 mg PO DAILY@1600 Docusate [Colace] 100 mg PO BID@0800,1700 cloZAPine [Clozaril] 100 mg PO DAILY@0800 Clopidogrel [Plavix] 75 mg PO DAILY@0800 Atorvastatin [Lipitor] 80 mg PO HS@2100 clonazePAM [KlonoPIN] 0.5 mg PO BID Changed Tamsulosin [Flomax] 0.4 mg PO HS #0 Discharge Medication List Acetaminophen Tab [Tylenol] 1,000 mg PO Q8H PRN 12/09/20 [History] Omeprazole 40 mg PO BID@0800,2100 12/09/20 [History] Sertraline [Zoloft] 50 mg PO DAILY@0800 04/27/21 [History] Aspirin 81 mg PO DAILY@1700 07/28/21 [History] Metoprolol Tartrate [Lopressor] 25 mg PO DAILY@0800 07/28/21 [History] Sennosides-Docusate Sodium [Senokot-S] 2 tab PO DAILY PRN 02/03/22 [History] cloZAPine [Clozaril] 200 mg PO DAILY@1600 02/03/22 [History] cloZAPine [Clozaril] 400 mg PO HS@2100 02/03/22 [History] Atorvastatin [Lipitor] 80 mg PO HS@2100 07/04/22 [History] Clopidogrel [Plavix] 75 mg PO DAILY@0800 07/04/22 [History] Docusate [Colace] 100 mg PO BID@0800,1700 07/04/22 [History] cloZAPine [Clozaril] 100 mg PO DAILY@0800 07/04/22 [History] HYDROcodone/APAP 7.5-325MG [[place] 7.5-325] 1 tab PO Q6HR PRN 3 Days #12 tab 07/08/22 [Rx] clonazePAM [KlonoPIN] 0.5 mg PO BID 11/11/22 [History] Cefdinir [Omnicef] 300 mg PO Q12HR #8 capsule 11/14/22 [Rx] Tamsulosin [Flomax] 0.4 mg PO HS #0 11/14/22 [Rx] Follow up Appointment(s)/Referral(s): Mac Cormier MD [STAFF PHYSICIAN] - 1-2 days Patient Instructions/Handouts: Urinary Tract Infection in Men (DC), Urinary Tract Infection in Men (GEN) Discharge Disposition: OTHER INSTITUTION NOT DEFINED
== END 2022-11-14 13:43 | disposition other institution (70) ==
LOC: EC 11:12 → 6NMEDSUR 14:24
PROVIDERS: ADMIT Student in an Organized Health Care Education/Training Program; ATTEND Student in an Organized Health Care Education/Training Program
DX: I95.1 Orthostatic hypotension (principal); N39.0 Urinary tract infection, site not specified; B96.89 Other specified bacterial agents as the cause of diseases classified elsewhere; I25.2 Old myocardial infarction; G20 Parkinson's disease; F02.80 Dementia in other diseases classified elsewhere, unspecified severity, without behavioral disturbance, psychotic disturbance, mood disturbance, and anxiety; I25.10 Atherosclerotic heart disease of native coronary artery without angina pectoris; F20.9 Schizophrenia, unspecified; I10 Essential (primary) hypertension; I08.1 Rheumatic disorders of both mitral and tricuspid valves; I37.1 Nonrheumatic pulmonary valve insufficiency; D64.9 Anemia, unspecified; E78.5 Hyperlipidemia, unspecified; E87.1 Hypo-osmolality and hyponatremia; Z86.16 Personal history of COVID-19; Z79.82 Long term (current) use of aspirin; Z79.899 Other long term (current) drug therapy; Z79.02 Long term (current) use of antithrombotics/antiplatelets; Z85.528 Personal history of other malignant neoplasm of kidney; Z95.5 Presence of coronary angioplasty implant and graft; Z99.3 Dependence on wheelchair
CPT/HCPCS: 96361 ×2; 96372 ×3; 96365 ×3; 96366 ×2; 96376; 99285; 36415; 93005; 93306; 97530; 97162; 97166; 83880; 80053; 80048; 83605; 83735; 84484; 85025 ×2; 85610; 85730; 81001; 87086; 87077; 87186; 84145; 71046; G0378 ×4; J0456; J0696 ×4; S0136 ×4; J1644 ×3

== ENCOUNTER 2022-12-15 15:42 | Emergency (ER) | payer OTHER, MEDICARE ==
[2022-12-15 16:00] VITALS: TEMP 97.9
[2022-12-15 16:39] LABS: Basophils % (A) 0 %; Eosinophils # (A) 0.1 k/uL (0-0.7); Eosinophils % (A) 2 %; HCT 34.2 % (39.0-53.0); HGB 11.5 gm/dL (13.0-17.5); Lymphocytes % (A) 13 %; MCH 28.5 pg (25.0-35.0); MCHC 33.7 g/dL (31.0-37.0); MCV 84.4 fL (80.0-100.0); Mean Platelet Volume 7.6; Monocytes # (A) 0.3 k/uL (0-1.0); Monocytes % (A) 4 %; Neutrophils # (A) 6.3 k/uL (1.3-7.7); Neutrophils % (A) 80 %; Platelet Count 255 k/uL (150-450); RBC 4.05 m/uL (4.30-5.90); RDW 15.1 % (11.5-15.5); WBC 7.9 k/uL (3.8-10.6)
[2022-12-15 16:48] LABS: Prothrombin Time 10.4 sec (9.0-12.0)
[2022-12-15 16:49] LABS: ALT 18 U/L (4-49); AST 23 U/L (17-59); African American GFR (CKD) >90 (>60 ml/min/1.73 sqM); Alkaline Phosphatase 77 U/L (38-126); Anion Gap 13 mmol/L; Blood Urea Nitrogen 6 mg/dL (9-20); Calcium 8.4 mg/dL (8.4-10.2); Carbon Dioxide 20 mmol/L (22-30); Chloride 93 mmol/L (98-107); Glucose 129 mg/dL (74-99); Non-African American GFR(CKD) >90 (>60 ml/min/1.73 sqM); Potassium 3.6 mmol/L (3.5-5.1); Sodium 126 mmol/L (137-145); Total Bilirubin 0.5 mg/dL (0.2-1.3); Total Protein 6.2 g/dL (6.3-8.2)
--- NOTE | 2022-12-15 16:57 | XR ---
EXAMINATION TYPE: XR KUB DATE OF EXAM: 12/15/2022 COMPARISON: 11/16/2021 INDICATION: Abdomen pain TECHNIQUE: Single view abdomen upright position FINDINGS: Colonic bowel gas is present. Fecal debris is within the ascending and transverse colon. Some mild re tention may be present. Air-filled colon is somewhat prominent. No mass effect is evident. Psoas margins are normal. No organomegaly is present. IMPRESSION: 1. Moderate fecal retention with prominent air-filled loops of colon. Correlate for constipation.
[2022-12-15 17:00] LABS: Appearance,Urine Cloudy (Clear); Bacteria,Urine Moderate /hpf; Bilirubin,Urine Negative (Negative); Blood,Urine Large (Negative); Color,Urine Dark Red; Glucose,Urine (UA) Negative (Negative); Ketones,Urine Trace (Negative); Leukocyte Esterase,Urine Large (Negative); Nitrite,Urine Negative (Negative); Protein,Urine 2+ (Negative); RBC,Urine >182 /hpf (0-5); Urobilinogen,Urine <2.0 mg/dL (<2.0)
[2022-12-15 17:01] LABS: Specific Gravity,Urine 1.013 (1.001-1.035)
[2022-12-15] MEDS ORDERED: SODIUM CHLORIDE 0.9% 500 ML 500 ML IV STA (18:05)
--- NOTE | 2022-12-15 19:44 | US ---
EXAMINATION TYPE: US renals and bladder DATE OF EXAM: 12/15/2022 COMPARISON: 05/05/21 CLINICAL INDICATION: Male, 66 years old with history of hematuria; hematuria *Limited due to pt not being able to roll on either side EXAM MEASUREMENTS: Right Kidney: 10.0 x 6.0 x 5.2 cm Left Kidney: 12.6 x 5.1 x 7.1 cm Right Kidney: No hydronephrosis or masses seen Left Kidney: No hydronephrosis or masses seen Bladder: Limited due to aguiar. Anterior wall appears thickened. Seen on previous Bilateral Jets seen: No IMPRESSION: 1. Somewhat limited examination. No obvious renal abnormality by ultrasound.
[2022-12-15] MEDS ORDERED: cefTRIAXone IN SWFI 1,000 MG/10 ML SYRINGE IVP STA (20:03)
--- NOTE | 2022-12-15 20:04 | ED ---
General Adult HPI - General Chief complaint: Urogenital Stated complaint: BLOOD IN CATH Time Seen by Provider: 12/15/22 17:43 Source: patient, family, RN notes reviewed, old records reviewed Mode of arrival: wheelchair Limitations: no limitations - History of Present Illness Initial comments: Patient is a 66-year-old male who presents emergency Department complaining of hematuria. Has had blood in the urine the last 2 days. Has a history significant for urinary incontinence, with a bleed his Parkinson's, renal cancer Cryoblation multiple years ago, schizophrenia. Has had the Aguiar catheter in place for approximately 2 weeks. He is on Plavix but no other blood thinners. They've noticed pinkish urine since Aguiar placement but darker blood over the last 3-4 days. Presents for further evaluation. Endorses mild suprapubic discomfort but no other acute complaints at this time. Denies fevers, chest pain, abdominal pain. Denies any nausea, vomiting. Chronic constipation which is unchanged. Presents for further evaluation. - Related Data Home Medications Medication Instructions Recorded Confirmed Acetaminophen Tab [Tylenol] 1,000 mg PO Q8H PRN 12/09/20 11/11/22 Omeprazole 40 mg PO BID@0800,2100 12/09/20 11/11/22 Sertraline [Zoloft] 50 mg PO DAILY@0800 04/27/21 11/11/22 Aspirin 81 mg PO DAILY@1700 07/28/21 11/11/22 Metoprolol Tartrate [Lopressor] 25 mg PO DAILY@0800 07/28/21 11/11/22 Sennosides-Docusate Sodium 2 tab PO DAILY PRN 02/03/22 11/11/22 [Senokot-S] cloZAPine [Clozaril] 200 mg PO DAILY@1600 02/03/22 11/11/22 cloZAPine [Clozaril] 400 mg PO HS@2100 02/03/22 11/11/22 Atorvastatin [Lipitor] 80 mg PO HS@2100 07/04/22 11/11/22 Clopidogrel [Plavix] 75 mg PO DAILY@0800 07/04/22 11/11/22 Docusate [Colace] 100 mg PO BID@0800,1700 07/04/22 11/11/22 cloZAPine [Clozaril] 100 mg PO DAILY@0800 07/04/22 11/11/22 clonazePAM [KlonoPIN] 0.5 mg PO BID 11/11/22 11/11/22 Previous Rx's Medication Instructions Recorded HYDROcodone/APAP 7.5-325MG [[place] 1 tab PO Q6HR PRN 3 Days #12 tab 07/08/22 7.5-325] Cefdinir [Omnicef] 300 mg PO Q12HR #8 capsule 11/14/22 Tamsulosin [Flomax] 0.4 mg PO HS #0 11/14/22 Sulfamethox-Tmp 800-160Mg [Bactrim 1 tab PO Q12HR 7 Days #14 tab 12/15/22 DS 800-160 mg] Allergies Allergy/AdvReac Type Severity Reaction Status Date / Time No Known Allergies Allergy Verified 11/11/22 12:53 Review of Systems ROS Statement: Those systems with pertinent positive or pertinent negative responses have been documented in the HPI. Review of Systems: CONST: Denies fever EYES: Denies blurry vision ENT: Denies nasal congestion C/V: Denies Chest pain RESP: Denies shortness of breath GI: Denies abdominal pain : Endorses hematuria SKIN: Denies rash. MSK: Denies joint pain. NEURO: Denies headache ROS Other: All systems not noted in ROS Statement are negative. Past Medical History Past Medical History: Hypertension Additional Past Medical History / Comment(s): renal CA with surgery parkinson History of Any Multi-Drug Resistant Organisms: Unobtainable Past Surgical History: Heart Catheterization With Stent, Orthopedic Surgery Additional Past Surgical History / Comment(s): cryoablation for renal CA, Heart Catheterization 04/23/2021, Past Anesthesia/Blood Transfusion Reactions: No Reported Reaction Date of Last Stent Placement:: 04/23/21 Type of Cardiac Device: Biventricular Pacemaker, Unknown Device Placement Date:: unknown Past Psychological History: Schizophrenia Smoking Status: Never smoker Past Alcohol Use History: None Reported Past Drug Use History: None Reported - Past Family History Family Family Medical History: No Reported History General Exam - General Exam Comments Initial Comments: General: Appears in no acute distress. HEAD: Normal with no signs of head trauma. EYES: PERRLA, EOMI, conjunctiva normal, no discharge. ENT: Hearing grossly intact, normal oropharynx. RESPIRATORY: Clear breath sounds bilaterally. No wheezes, rales, or rhonchi. C/V: Regular rate and rhythm. S1 and S2 auscultated, no edema, peripheral pulses 2+ and intact throughout ABD: Abd is soft, nontender, nondistended : Aguiar catheter in place. Hematuria in Aguiar bag. EXT: Normal range of motion, no obvious deformity SKIN: No rashes or lesions observed on exposed skin. NEURO: Alert and oriented 4. Limitations: no limitations Course Vital Signs 12/15/22 12/15/22 12/15/22 15:57 17:55 20:26 Temperature 97.9 F Pulse Rate 85 74 65 Respiratory 16 16 18 Rate Blood Pressure 141/87 143/93 153/89 O2 Sat by Pulse 98 99 99 Oximetry Medical Decision Making - Medical Decision Making Was pt. sent in by a medical professional or institution (LEANNE Glaser, ROTARY DRIER OPERATOR, urgent care, hospital, or detention...) When possible be specific @ -No Did you speak to anyone other than the patient for history (EMS, parent, family, police, friend...)? What history was obtained from this source @ -I did speak with family who presented at bedside who corroborated the story. Did you review nursing and triage notes (agree or disagree)? Why? @ -I reviewed and agree with nursing and triage notes Were old charts reviewed (outside hosp., previous admission, EMS record, old EKG, old radiological studies, urgent care reports/EKG's, detention records)? Report findings @ -No old charts were reviewed Differential Diagnosis (chest pain, altered mental status, abdominal pain women, abdominal pain men, vaginal bleeding, weakness, fever, dyspnea, syncope, headache, dizziness, GI bleed, back pain, seizure, CVA, palpatations, mental health, musculoskeletal)? @ -UTI, hematuria, blood catheter infection, this is is not all-inclusive. EKG interpreted by me (3pts min.). @ -None done X-rays interpreted by me (1pt min.). @ -KUB reveals no obvious acute intra-abdominal process. CT interpreted by me (1pt min.). @ -None done U/S interpreted by me (1pt. min.). @ -Interpreted by radiology. Reviewed by myself. No obvious process. What testing was considered but not performed or refused? (CT, X-rays, U/S, labs)? Why? @ -None What meds were considered but not given or refused? Why? @ -None Did you discuss the management of the patient with other professionals (professionals i.e. , PA, ROTARY DRIER OPERATOR, lab, RT, psych nurse, social media project manager, extrusion press supervisor, teacher, water resources technical officer, case work aide)? Give summary @ -No Was smoking cessation discussed for >3mins.? @ -No Was critical care preformed (if so, how long)? @ -No Were there social determinants of health that impacted care today? How? (Homelessness, low income, unemployed, alcoholism, drug addiction, transportation, low edu. Level, literacy, decrease access to med. care, group home, rehab)? @ -No Was there de-escalation of care discussed even if they declined (Discuss DNR or withdrawal of care, Hospice)? DNR status @ -No What co-morbidities impacted this encounter? (DM, HTN, Smoking, COPD, CAD, Canc er, CVA, ARF, Chemo, Hep., AIDS, mental health diagnosis, sleep apnea, morbid obesity)? @ -Chronic Aguiar catheter placement Was patient admitted / discharged? Hospital course, mention meds given and route, prescriptions, significant lab abnormalities, going to OR and other pertinent info. @ -Based on the patient's presentation and physical exam, he presents complaining of hematuria. Has had a Aguiar catheter in place for over one week. Has had hematuria for a few days. He is on Plavix. Has no other acute complaints at this time other than some suprapubic discomfort. Does have a history of UTIs. Denies any fevers or systemic symptoms. Denies any chest pain or shortness of breath. Workup was started by the patient was in triage, and was remarkable for a chronic anemia, mild hyponatremia of 126 which was treated with a fluid bolus. Urine was remarkable for hematuria, as well as a moderate amount of bacteria as well as large amount of leukocyte esterase. Vital signs are within except for limits. I discussed results of patient as well as family member. We will replace his Aguiar, irrigated the bladder with multiple saline boluses, as well as started him on an antibiotic for UTI. Patient's urine is more clear at this point, no longer dark red but rather a slight tinged red. Ultrasound unremarkable. Patient is resting comfortably at this time. Discussed the results with the patient as well as his family member. Full catheter was replaced. He'll be given a dose of Rocephin. Prior UTI was remarkable for growing Klebsiella which was mostly susceptible to most antibiotics. He'll be started on Bactrim at home. [facility] but I will provide are contact info for the on- call urologist. Strict return precautions discussed. They were in agreement t his plan. I will provide the patient with a prescription for Bactrim. I instructed the patient to follow up with their PCP in the next 1-3 days. I provided contact information for follow up with urology. I explained that the patient should return to the emergency department if they experience any worsening symptoms. Strict return precautions were discussed with the patient. The patient expressed understanding of these instructions. I answered all questions that the patient had. The patient was discharged home in good condition with their prescriptions and follow up information. Undiagnosed new problem with uncertain prognosis? @ -No Drug Therapy requiring intensive monitoring for toxicity (Heparin, Nitro, Insulin, Cardizem)? @ -No Were any procedures done? @ -No Diagnosis/symptom? @ -Hematuria, UTI, Aguiar catheter Acute, or Chronic, or Acute on Chronic? @ -Acute on chronic Uncomplicated (without systemic symptoms) or Complicated (systemic symptoms)? @ -Uncomplicated Side effects of treatment? @ -none Exacerbation, Progression, or Severe Exacerbation] @ -no Poses a threat to life or bodily function? @ -no - Lab Data Result diagrams: 12/15/22 16:24 12/15/22 16:24 Lab Results 12/15/22 12/15/22 12/15/22 Range/Units 16:24 16:24 16:24 WBC 7.9 (3.8-10.6) k/uL RBC 4.05 L (4.30-5.90) m/uL Hgb 11.5 L (13.0-17.5) gm/dL Hct 34.2 L (39.0-53.0) % MCV 84.4 (80.0-100.0) fL MCH 28.5 (25.0-35.0) pg MCHC 33.7 (31.0-37.0) g/dL RDW 15.1 (11.5-15.5) % Plt Count 255 (150-450) k/uL MPV 7.6 Neutrophils % 80 % Lymphocytes % 13 % Monocytes % 4 % Eosinophils % 2 % Basophils % 0 % Neutrophils # 6.3 (1.3-7.7) k/uL Lymphocytes # 1.0 (1.0-4.8) k/uL Monocytes # 0.3 (0-1.0) k/uL Eosinophils # 0.1 (0-0.7) k/uL Basophils # 0.0 (0-0.2) k/uL PT 10.4 (9.0-12.0) sec INR 1.0 (<1.2) APTT 25.0 (22.0-30.0) sec Sodium 126 L (137-145) mmol/L Potassium 3.6 (3.5-5.1) mmol/L Chloride 93 L (98-107) mmol/L Carbon Dioxide 20 L (22-30) mmol/L Anion Gap 13 mmol/L BUN 6 L (9-20) mg/dL Creatinine 0.73 (0.66-1.25) mg/dL Est GFR (CKD-EPI)AfAm >90 (>60 ml/min/1.73 sqM) Est GFR (CKD-EPI)NonAf >90 (>60 ml/min/1.73 sqM) Glucose 129 H (74-99) mg/dL Calcium 8.4 (8.4-10.2) mg/dL Total Bilirubin 0.5 (0.2-1.3) mg/dL AST 23 (17-59) U/L ALT 18 (4-49) U/L Alkaline Phosphatase 77 (38-126) U/L Total Protein 6.2 L (6.3-8.2) g/dL Albumin 4.0 (3.5-5.0) g/dL Urine Color Urine Appearance (Clear) Urine pH (5.0-8.0) Ur Specific [place] (1.001-1.035) Urine Protein (Negative) Urine Glucose (UA) (Negative) Urine Ketones (Negative) Urine Blood (Negative) Urine Nitrite (Negative) Urine Bilirubin (Negative) Urine Urobilinogen (<2.0) mg/dL Ur Leukocyte Esterase (Negative) Urine RBC (0-5) /hpf Urine Bacteria (None) /hpf 12/15/22 Range/Units 16:24 WBC (3.8-10.6) k/uL RBC (4.30-5.90) m/uL Hgb (13.0-17.5) gm/dL Hct (39.0-53.0) % MCV (80.0-100.0) fL MCH (25.0-35.0) pg MCHC (31.0-37.0) g/dL RDW (11.5-15.5) % Plt Count (150-450) k/uL MPV Neutrophils % % Lymphocytes % % Monocytes % % Eosinophils % % Basophils % % Neutrophils # (1.3-7.7) k/uL Lymphocytes # (1.0-4.8) k/uL Monocytes # (0-1.0) k/uL Eosinophils # (0-0.7) k/uL Basophils # (0-0.2) k/uL PT (9.0-12.0) sec INR (<1.2) APTT (22.0-30.0) sec Sodium (137-145) mmol/L Potassium (3.5-5.1) mmol/L Chloride (98-107) mmol/L Carbon Dioxide (22-30) mmol/L Anion Gap mmol/L BUN (9-20) mg/dL Creatinine (0.66-1.25) mg/dL Est GFR (CKD-EPI)AfAm (>60 ml/min/1.73 sqM) Est GFR (CKD-EPI)NonAf (>60 ml/min/1.73 sqM) Glucose (74-99) mg/dL Calcium (8.4-10.2) mg/dL Total Bilirubin (0.2-1.3) mg/dL AST (17-59) U/L ALT (4-49) U/L Alkaline Phosphatase (38-126) U/L Total Protein (6.3-8.2) g/dL Albumin (3.5-5.0) g/dL Urine Color Dark Red Urine Appearance Cloudy (Clear) Urine pH 6.0 (5.0-8.0) Ur Specific [place] 1.013 (1.001-1.035) Urine Protein 2+ H (Negative) Urine Glucose (UA) Negative (Negative) Urine Ketones Trace H (Negative) Urine Blood Large H (Negative) Urine Nitrite Negative (Negative) Urine Bilirubin Negative (Negative) Urine Urobilinogen <2.0 (<2.0) mg/dL Ur Leukocyte Esterase Large H (Negative) Urine RBC >182 H (0-5) /hpf Urine Bacteria Moderate H (None) /hpf Disposition Clinical Impression: UTI (urinary tract infection), Aguiar catheter in place, Hematuria Disposition: HOME SELF-CARE Instructions (If sedation given, give patient instructions): Urinary Tract Infection in Men (ED), Aguiar Catheter Placement and Care (ED), How to Change a Catheter Drainage Bag (DC) Additional Instructions: Please follow up with urology within 1 week. Ensure the aguiar back is properly drained. Take antibiotic twice per day. Return to ED if any concerning symptoms. Prescriptions: Sulfamethox-Tmp 800-160Mg [Bactrim DS 800-160 mg] 1 tab PO Q12HR 7 Days #14 tab Is patient prescribed a controlled substance at d/c from ED?: No Referrals: [facility],Clinic [Primary Care Provider] - 1-2 days Claudio Briceño MD [STAFF PHYSICIAN] - 1-2 days Time of Disposition: 20:05
[2022-12-15 20:26] VITALS: BP 153/89; PULSE 65; RESP 18
== END 2022-12-15 21:13 | disposition home or self-care (01) ==
LOC: EC 15:42
DX: N39.0 Urinary tract infection, site not specified (principal); I10 Essential (primary) hypertension; G20 Parkinson's disease; F20.9 Schizophrenia, unspecified; Z79.82 Long term (current) use of aspirin; Z79.899 Other long term (current) drug therapy
CPT/HCPCS: 99284; 96374; 96361; 51702; 36415; 80053; 85025; 85610; 85730; 81001; 74018; 76770; J0696; 96375

== ENCOUNTER 2022-12-16 13:49 | Emergency (ER) | payer OTHER, MEDICARE ==
[2022-12-16 14:01] VITALS: RESP 16
--- NOTE | 2022-12-16 15:41 | ED ---
Male Urogenital HPI - General Chief complaint: Urogenital Stated complaint: catheter issues Time Seen by Provider: 12/16/22 14:03 Source: patient, family, RN notes reviewed Mode of arrival: wheelchair Limitations: no limitations - History of Present Illness Initial comments: This is a 66-year-old male who presents to the emergency department for problems with his Smith catheter. He was evaluated here yesterday after having blood in his urine that had been present for approximately 2 days. His Smith catheter was replaced and found to be draining appropriately. He returned today, because he states that his Smith catheter does not appear to be draining and there is again blood in the catheter bag. He is currently taking Bactrim as prescribed for associated UTI diagnosed yesterday. Reports a history of urinary incontinence and renal cancer. He follows up with urology through the [place], but does not have current appointment. Denies any abdominal pain. Denies any fevers, chills, sore throat, cough, dyspnea, chest pain, palpitations, abdominal pain, nausea, vomiting, diarrhea, back pain, or headaches. MD Complaint: other (hematuria) - Related Data Home Medications Medication Instructions Recorded Confirmed Acetaminophen Tab [Tylenol] 1,000 mg PO Q8H PRN 12/09/20 11/11/22 Omeprazole 40 mg PO BID@0800,2100 12/09/20 11/11/22 Sertraline [Zoloft] 50 mg PO DAILY@0800 04/27/21 11/11/22 Aspirin 81 mg PO DAILY@1700 07/28/21 11/11/22 Metoprolol Tartrate [Lopressor] 25 mg PO DAILY@0800 07/28/21 11/11/22 Sennosides-Docusate Sodium 2 tab PO DAILY PRN 02/03/22 11/11/22 [Senokot-S] cloZAPine [Clozaril] 200 mg PO DAILY@1600 02/03/22 11/11/22 cloZAPine [Clozaril] 400 mg PO HS@2100 02/03/22 11/11/22 Atorvastatin [Lipitor] 80 mg PO HS@2100 07/04/22 11/11/22 Clopidogrel [Plavix] 75 mg PO DAILY@0800 07/04/22 11/11/22 Docusate [Colace] 100 mg PO BID@0800,1700 07/04/22 11/11/22 cloZAPine [Clozaril] 100 mg PO DAILY@0800 07/04/22 11/11/22 clonazePAM [KlonoPIN] 0.5 mg PO BID 11/11/22 11/11/22 Previous Rx's Medication Instructions Recorded HYDROcodone/APAP 7.5-325MG [[place] 1 tab PO Q6HR PRN 3 Days #12 tab 07/08/22 7.5-325] Cefdinir [Omnicef] 300 mg PO Q12HR #8 capsule 11/14/22 Tamsulosin [Flomax] 0.4 mg PO HS #0 11/14/22 Sulfamethox-Tmp 800-160Mg [Bactrim 1 tab PO Q12HR 7 Days #14 tab 12/15/22 DS 800-160 mg] Allergies Allergy/AdvReac Type Severity Reaction Status Date / Time No Known Allergies Allergy Verified 12/16/22 13:59 Review of Systems ROS Statement: Those systems with pertinent positive or pertinent negative responses have been documented in the HPI. ROS Other: All systems not noted in ROS Statement are negative. Past Medical History Past Medical History: Hypertension Additional Past Medical History / Comment(s): renal CA with surgery parkinson History of Any Multi-Drug Resistant Organisms: Unobtainable Past Surgical History: Heart Catheterization With Stent, Orthopedic Surgery Additional Past Surgical History / Comment(s): cryoablation for renal CA, Heart Catheterization 04/23/2021, Past Anesthesia/Blood Transfusion Reactions: No Reported Reaction Date of Last Stent Placement:: 04/23/21 Type of Cardiac Device: Biventricular Pacemaker, Unknown Device Placement Date:: unknown Past Psychological History: Schizophrenia Smoking Status: Never smoker Past Alcohol Use History: None Reported Past Drug Use History: None Reported - Past Family History Family Family Medical History: No Reported History General Exam Limitations: no limitations General appearance: alert, in no apparent distress Head exam: Present: atraumatic, normocephalic, normal inspection Respiratory exam: Present: normal lung sounds bilaterally. Absent: respiratory distress, wheezes, rales, rhonchi, stridor Cardiovascular Exam: Present: regular rate, normal rhythm, normal heart sounds. Absent: systolic murmur, diastolic murmur, rubs, gallop, clicks GI/Abdominal exam: Present: soft, normal bowel sounds. Absent: distended, tenderness, guarding, rebound, rigid Neurological exam: Present: alert, oriented X3, CN II-XII intact Psychiatric exam: Present: normal affect, normal mood Skin exam: Present: warm, dry, intact, normal color. Absent: rash Course Vital Signs 12/16/22 12/16/22 13:59 16:06 Temperature 97.8 F 97 F L Pulse Rate 81 75 Respiratory 16 16 Rate Blood Pressure 114/73 118/74 O2 Sat by Pulse 99 99 Oximetry Medical Decision Making - Medical Decision Making This is a 66-year-old male who presents to the emergency department for problems with his Smith catheter. Was pt. sent in by a medical professional or institution? @ -No Did you speak to anyone other than the patient for history? @ -No Did you review nursing and triage notes? @ -Yes, and I agree, it is accurate with regards to the patient's symptoms. Were old charts reviewed? @ -Blood work and renal US from 12/15. Differential Diagnosis? @ -Differential Hematuria: UTI, pyelonephritis, malignancy, kidney stone, urethral injury, glomerulonephritis, this is not meant to be an all-inclusive list. EKG interpreted by me (3pts min.)? @ -Not obtained X-rays interpreted by me (1pt min.)? @ -Not obtained CT interpreted by me (1pt min.)? @ -Not obtained U/S interpreted by me (1pt. min.)? @ -Not obtained What testing was considered but not performed? (CT, X-rays, U/S, labs)? Why? @ -None What meds were considered but not given? Why? @ -None Did you discuss the management of the patient with other professionals? @ -No Did you reconcile home meds? @ -No Was smoking cessation discussed for >3mins.? @ -No Was critical care preformed (if so, how long)? @ -No Were there social determinants of health that impacted care today? How? (Homelessness, low income, unemployed, alcoholism, drug addiction, transportation, low edu. Level, literacy, decrease access to med. care, [facility], rehab)? @ -No Was there de-escalation of care discussed even if they declined? (Discuss DNR or withdrawal of care, Hospice)? @ -No What co-morbidities impacted this encounter? (DM, HTN, Smoking, COPD, CAD, Cancer, CVA, Hep., AIDS, mental health diagnosis, sleep apnea, morbid obesity)? @ -Hx of renal cancer, urinary retention Was patient admitted / discharged? @ -Discharged. The CLOTH BALE HEADER adjusted the patient's catheter, and found that it was not positioned appropriately. After repositioning this, it started draining on its own and was found to be patent. This was also flushed multiple times without any issues. After we were able to get the catheter draining again, there was no more blood present either. He is instructed to continue taking the Bactrim as prescribed. Patient and his were educated on use of the Smith catheter and were also taught how to flush it at home. Recommended flushing it if it seems to have problems draining in the future. We also discussed maintenance flushes if needed in the event clogs become a recurrent issue. Reminded the patient to contact urology for a follow-up appointment as well. Undiagnosed new problem with uncertain prognosis? @ -None Drug Therapy requiring intensive monitoring for toxicity (Heparin, Nitro, Insulin, Cardizem)? @ -None Were any procedures done? @ -None Diagnosis/symptom? @ -Smith catheter problem Acute, or Chronic, or Acute on Chronic? @ -Acute Uncomplicated (without systemic symptoms) or Complicated (systemic symptoms)? @ -Uncomplicated Side effects of treatment? @ -None Exacerbation, Progression, or Severe Exacerbation] @ -Not applicable Poses a threat to life or bodily function? @ -No Return precautions reviewed in depth, the patient is instructed to return to the emergency department with any new, worsening, or concerning symptoms. Patient verbalized understanding. This case was discussed in detail with the attending ED physician, Dr. Montenegro. Presentation, findings, and treatment plan discussed in detail as well. Disposition Clinical Impression: Smith catheter problem Disposition: HOME SELF-CARE Instructions (If sedation given, give patient instructions): Smith Catheter Placement and Care (ED) Additional Instructions: Return to the emergency department with any new, worsening, or concerning symptoms. Make sure you are trying to flush this at home if it is not draining properly. You can also try flushing it regularly every 6-8 hours to reduce the risk of additional blood clots. Follow-up with urology. Continue taking the antibiotic as prescribed. Is patient prescribed a controlled substance at d/c from ED?: No Referrals: [facility],Clinic [Primary Care Provider] - 1-2 days
[2022-12-16 16:08] VITALS: BP 118/74; PULSE 75; TEMP 97
== END 2022-12-16 16:08 | disposition home or self-care (01) ==
LOC: EC 13:49
DX: T83.091A Other mechanical complication of indwelling urethral catheter, initial encounter (principal); I10 Essential (primary) hypertension; Z79.899 Other long term (current) drug therapy; Z79.82 Long term (current) use of aspirin
CPT/HCPCS: 99283

== ENCOUNTER 2022-12-30 16:43 | Emergency (ER) | payer OTHER, MEDICARE ==
[2022-12-30 17:53] LABS: Appearance,Urine Clear (Clear); Bacteria,Urine Many /hpf; Bilirubin,Urine Negative (Negative); Blood,Urine Large (Negative); Color,Urine Light Yellow; Glucose,Urine (UA) Negative (Negative); Ketones,Urine Negative (Negative); Leukocyte Esterase,Urine Small (Negative); Nitrite,Urine Negative (Negative); Protein,Urine Negative (Negative); RBC,Urine 19 /hpf (0-5); Specific Gravity,Urine 1.004 (1.001-1.035); Urobilinogen,Urine <2.0 mg/dL (<2.0); WBC,Urine 10 /hpf (0-5)
--- NOTE | 2022-12-30 18:28 | ED ---
General Adult HPI - General Chief complaint: Urogenital Stated complaint: male Time Seen by Provider: 12/30/22 17:50 Source: patient, RN notes reviewed, old records reviewed Mode of arrival: ambulatory Limitations: no limitations - History of Present Illness Initial comments: This is a 67-year-old male who was presenting to the emergency department c omplaining that his catheter starting his penis too much and he wants the catheter out. Guarding syndrome guardian states that he can make his own decisions about his catheter. Patient had a catheter placed because he was urinating so much that he was wearing furniture and bed sheets. Patient states he has no control of his urination so his been wearing a diaper for many many years and they decided to put a catheter in so that he wouldn't continue to urinate on and through the diapers. Patient does complain of any suprapubic pain it is all inside the penis where the cath was placed. Patient is demanding that the catheter be removed - Related Data Home Medications Medication Instructions Recorded Confirmed Acetaminophen Tab [Tylenol] 1,000 mg PO Q8H PRN 12/09/20 11/11/22 Omeprazole 40 mg PO BID@0800,2100 12/09/20 11/11/22 Sertraline [Zoloft] 50 mg PO DAILY@0800 04/27/21 11/11/22 Aspirin 81 mg PO DAILY@1700 07/28/21 11/11/22 Metoprolol Tartrate [Lopressor] 25 mg PO DAILY@0800 07/28/21 11/11/22 Sennosides-Docusate Sodium 2 tab PO DAILY PRN 02/03/22 11/11/22 [Senokot-S] cloZAPine [Clozaril] 200 mg PO DAILY@1600 02/03/22 11/11/22 cloZAPine [Clozaril] 400 mg PO HS@209902/03/22 11/11/22 Atorvastatin [Lipitor] 80 mg PO HS@209907/04/22 11/11/22 Clopidogrel [Plavix] 75 mg PO DAILY@0800 07/04/22 11/11/22 Docusate [Colace] 100 mg PO BID@0800,1700 07/04/22 11/11/22 cloZAPine [Clozaril] 100 mg PO DAILY@0800 07/04/22 11/11/22 clonazePAM [KlonoPIN] 0.5 mg PO BID 11/11/22 11/11/22 Previous Rx's Medication Instructions Recorded HYDROcodone/APAP 7.5-325MG [[place] 1 tab PO Q6HR PRN 3 Days #12 tab 07/08/22 7.5-325] Cefdinir [Omnicef] 300 mg PO Q12HR #8 capsule 11/14/22 Tamsulosin [Flomax] 0.4 mg PO HS #0 11/14/22 Sulfamethox-Tmp 800-160Mg [Bactrim 1 tab PO Q12HR 7 Days #14 tab 12/15/22 DS 800-160 mg] Ciprofloxacin HCl [Cipro] 500 mg PO Q12HR #20 tablet 12/30/22 Allergies Allergy/AdvReac Type Severity Reaction Status Date / Time No Known Allergies Allergy Verified 12/30/22 17:30 Review of Systems ROS Statement: Those systems with pertinent positive or pertinent negative responses have been documented in the HPI. ROS Other: All systems not noted in ROS Statement are negative. Past Medical History Past Medical History: Hypertension Additional Past Medical History / Comment(s): renal CA with surgery parkinson History of Any Multi-Drug Resistant Organisms: Unobtainable Past Surgical History: Heart Catheterization With Stent, Orthopedic Surgery Additional Past Surgical History / Comment(s): cryoablation for renal CA, Heart Catheterization 04/23/2021, Past Anesthesia/Blood Transfusion Reactions: No Reported Reaction Date of Last Stent Placement:: 04/23/21 Type of Cardiac Device: Biventricular Pacemaker, Unknown Device Placement Date:: unknown Past Psychological History: Schizophrenia Smoking Status: Never smoker Past Alcohol Use History: None Reported Past Drug Use History: None Reported - Past Family History Family Family Medical History: No Reported History General Exam - General Exam Comments Initial Comments: GENERAL: Patient is well-developed and well-nourished. Patient is nontoxic and well- hydrated and is in mild distress. ENT: Neck is soft and supple. No significant lymphadenopathy is noted. Oropharynx is clear. Moist mucous membranes. Neck has full range of motion without eliciting any pain. EYES: The sclera were anicteric and conjunctiva were pink and moist. Extraocular movements were intact and pupils were equal round and reactive to light. Eyelids were unremarkable. PULMONARY: Unlabored respirations. Good breath sounds bilaterally. No audible rales rhonchi or wheezing was noted. CARDIOVASCULAR: There is a regular rate and rhythm without any murmurs gallops or rubs. ABDOMEN: Soft and nontender with normal bowel sounds. Patient's penis has no areas of excoriation is no redness no tenderness no swelling SKIN: Skin is clear with no lesions or rashes and otherwise unremarkable. NEUROLOGIC: Patient is alert and oriented x3. Cranial nerves II through XII are grossly intact. Motor and sensory are also intact. Normal speech, volume and content. Symmetrical smile. MUSCULOSKELETAL: Normal extremities with adequate strength and full range of motion. LYMPHATICS: No significant lymphadenopathy is noted PSYCHIATRIC: Normal psychiatric evaluation. Limitations: no limitations Course Vital Signs 12/30/22 17:26 Temperature 98.1 F Pulse Rate 78 Respiratory 18 Rate Blood Pressure 138/89 O2 Sat by Pulse 99 Oximetry Medical Decision Making - Medical Decision Making Was pt. sent in by a medical professional or institution (, PA, MANAGER BUSINESS OPERATIONS, urgent care, hospital, or [facility]...) When possible be specific @ -No Did you speak to anyone other than the patient for history (EMS, parent, family, police, friend...)? What history was obtained from this source @ -Patient's sister gave quite a bit of the history considering she is the guardian Did you review nursing and triage notes (agree or disagree)? Why? @ -I reviewed and agree with nursing and triage notes Were old charts reviewed (outside hosp., previous admission, EMS record, old EKG, old radiological studies, urgent care reports/EKG's, [facility] records)? Report findings @ -No old charts were reviewed Differential Diagnosis (chest pain, altered mental status, abdominal pain women, abdominal pain men, vaginal bleeding, weakness, fever, dyspnea, syncope, headache, dizziness, GI bleed, back pain, seizure, CVA, palpatations, mental health, musculoskeletal)? @ -Differential Abdominal Pain Men: Appendicitis, cholecystitis, diverticulosis, ischemic bowel, pancreatitis, hepatitis, UTI, gastroenteritis, AAA, incarcerated hernia, bowel obstruction, constipation, inflammatory bowel, hepatitis, peptic ulcer disease, splenic infarction, perforated viscus, testicular torsion, this is not meant to be an all-inclusive list EKG interpreted by me (3pts min.). @ -As above X-rays interpreted by me (1pt min.). @ -None done CT interpreted by me (1pt min.). @ -None done U/S interpreted by me (1pt. min.). @ -None done What testing was considered but not performed or refused? (CT, X-rays, U/S, labs)? Why? @ -None What meds were considered but not given or refused? Why? @ -None Did you discuss the management of the patient with other professionals (professionals i.e. Dr., PA, MANAGER BUSINESS OPERATIONS, lab, RT, psych nurse, social work therapist, coordinating producer, teacher, tactical intelligence officer, telephonic nurse case manager)? Give summary @ -No Was smoking cessation discussed for >3mins.? @ -No Was critical care preformed (if so, how long)? @ -No Were there social determinants of health that impacted care today? How? (Homelessness, low income, unemployed, alcoholism, drug addiction, transportation, low edu. Level, literacy, decrease access to med. care, fpc, rehab)? @ -No Was there de-escalation of care discussed even if they declined (Discuss DNR or withdrawal of care, Hospice)? DNR status @ -No What co-morbidities impacted this encounter? (DM, HTN, Smoking, COPD, CAD, Cancer, CVA, ARF, Chemo, Hep., AIDS, mental health diagnosis, sleep apnea, morbid obesity)? @ -None Was patient admitted / discharged? Hospital course, mention meds given and route, prescriptions, significant lab abnormalities, going to OR and other pertinent info. @ -Radha kapoor was insistent that he wanted the urinary catheter out. Moving he felt considerably better he had a urine done after the catheter thought it did look infected patient was given antibiotics in the emergency department and will be sent home with antibiotics. Undiagnosed new problem with uncertain prognosis? @ -No Drug Therapy requiring intensive monitoring for toxicity (Heparin, Nitro, I nsulin, Cardizem)? @ -No Were any procedures done? @ -No Diagnosis/symptom? @ -Urinary catheter pain Acute, or Chronic, or Acute on Chronic? @ -Acute Uncomplicated (without systemic symptoms) or Complicated (systemic symptoms)? @ -Uncomplicated Side effects of treatment? @ -No Exacerbation, Progression, or Severe Exacerbation? @ -No Poses a threat to life or bodily function? How? (Chest pain, [place], [place], pneumonia, PE, COPD, DKA, ARF, appy, cholecystitis, CVA, Diverticulitis, Homicidal, Suicidal, threat to staff... and all critical care pts) @ -No Diagnosis/symptom? @ -Urinary tract infection Acute, or Chronic, or Acute on Chronic? @ -Acute Uncomplicated (without systemic symptoms) or Complicated (systemic symptoms)? @ -Uncomplicated Side effects of treatment? @ -none Exacerbation, Progression, or Severe Exacerbation] @ -no Poses a threat to life or bodily function? @ -no - Lab Data Lab Results 12/30/22 12/30/22 Range/Units 17:31 19:00 Urine Color Light Yellow Light Yellow Urine Appearance Clear Clear (Clear) Urine pH 7.0 7.5 (5.0-8.0) Ur Specific [place] 1.004 1.002 (1.001-1.035) Urine Protein Negative Negative (Negative) Urine Glucose (UA) Negative Negative (Negative) Urine Ketones Negative Negative (Negative) Urine Blood Large H Moderate H (Negative) Urine Nitrite Negative Negative (Negative) Urine Bilirubin Negative Negative (Negative) Urine Urobilinogen <2.0 <2.0 (<2.0) mg/dL Ur Leukocyte Esterase Small H Large H (Negative) Urine RBC 19 H 2 (0-5) /hpf Urine WBC 10 H 42 H (0-5) /hpf Urine Bacteria Many H (None) /hpf Disposition Clinical Impression: Urinary catheter dysfunction, Urinary tract infection Disposition: HOME SELF-CARE Instructions (If sedation given, give patient instructions): Urinary Tract Infection in Men (ED) Prescriptions: Ciprofloxacin HCl [Cipro] 500 mg PO Q12HR #20 tablet Is patient prescribed a controlled substance at d/c from ED?: No Referrals: [facility],Clinic [Primary Care Provider] - 1-2 days Time of Disposition: 19:53
[2022-12-30 19:19] LABS: Appearance,Urine Clear (Clear); Bilirubin,Urine Negative (Negative); Blood,Urine Moderate (Negative); Color,Urine Light Yellow; Glucose,Urine (UA) Negative (Negative); Ketones,Urine Negative (Negative); Leukocyte Esterase,Urine Large (Negative); Nitrite,Urine Negative (Negative); PH, Urine 7.5 (5.0-8.0); Protein,Urine Negative (Negative); RBC,Urine 2 /hpf (0-5); Specific Gravity,Urine 1.002 (1.001-1.035); Urobilinogen,Urine <2.0 mg/dL (<2.0); WBC,Urine 42 /hpf (0-5)
[2022-12-30] MEDS ORDERED: cefTRIAXone 1,000 MG VIAL (IM USE) IM STA (19:31)
[2022-12-30 20:20] VITALS: BP 110/62; PULSE 76; RESP 16; TEMP 98.2
== END 2022-12-30 20:20 | disposition home or self-care (01) ==
LOC: EC 16:43
DX: T83.098A Other mechanical complication of other urinary catheter, initial encounter (principal); N39.0 Urinary tract infection, site not specified; I10 Essential (primary) hypertension; Z79.82 Long term (current) use of aspirin; Z79.02 Long term (current) use of antithrombotics/antiplatelets
CPT/HCPCS: 81001; 87086; 99283; 96372; J0696

== ENCOUNTER 2023-01-18 16:22 | Emergency (ER) | payer OTHER, MEDICARE ==
--- NOTE | 2023-01-18 18:05 | XR ---
EXAMINATION TYPE: XR chest 2V DATE OF EXAM: 01/18/2023 5:35 PM COMPARISON: Chest radiographs from 11/11/2022 TECHNIQUE: XR chest 2V Frontal and lateral views of the chest. CLINICAL INDICATION:Male, 67 years old with history of fall, pain; FINDINGS: Lungs/Pleura: There is no evidence of pleural effusion, focal consolidation, or pneumothorax. Pulmonary vascularity: Unremarkable. Heart/mediastinum: Cardiomediastinal silhouette is unremarkable. Musculoskeletal: No acute osseous pathology. IMPRESSION: No acute cardiopulmonary disease/process.
--- NOTE | 2023-01-18 18:05 | XR ---
EXAMINATION TYPE: XR pelvis AP view DATE OF EXAM: 01/18/2023 5:35 PM INDICATION: Patient age:Male; 67 years old; Reason for study: fall, pain; COMPARISON: None TECHNIQUE: The pelvis was examined in a single projection. FINDINGS: There is no evidence of fracture or dislocation. There is no soft tissue abnormality. No a bnormal calcifications are present. The spine appears intact. IMPRESSION: No acute osseous pathology. If there remains concern consider CT.
--- NOTE | 2023-01-18 18:16 | CT ---
EXAMINATION TYPE: CT brain cspine wo con, CT facial bones wo con CT DLP: 1216 (accession [id number]), Combined DLP of 1216 (accession [id number]) mGycm, Automated exposur e control for dose reduction was used. DATE OF EXAM: 01/18/2023 5:44 PM COMPARISON: None. CLINICAL INDICATION:Male, 67 years old with history of fall, pain; Fall, large bump above right eye. Pt is developing Parkinson's. No LOC. TECHNIQUE: Brain: Multiple axial CT images of the brain were obtained without IV contrast. Cspine: Axial CT images from the skull base to the inferior aspect of T2 we obtained without intraven ous contrast. Coronal and sagittal reformatted images were also reviewed. Facial: And axial imaging of the facial structures with sagittal coronal reformats. FINDINGS: Brain: Extra-axial spaces: No abnormal extra-axial fluid collections. Ventricular system: Dilatation in proportion to cerebral atrophy. Cerebral parenchyma: Cerebral atrophy. No acute intraparenchymal hemorrhage or mass effect. The lechuga -white junction is well differentiated. Scattered hypoattenuating areas are seen within the white mat ter. Cerebellum: Unremarkable. Mass effect: No evidence of midline shift. Intracranial vasculature: Atherosclerotic calcifications of the intracranial vessels. Soft tissues: Normal. Calvarium/osseous structures: No depressed skull fracture. Paranasal sinuses and mastoid air cells: Mild mucosal thickening of the maxillary sinuses. Visualized orbits: Orbital contents are intact. Cervical spine: Fracture: None. Osseous structures: Multilevel degenerative disc disease changes with endplate spurring and disc oste ophyte complex's. Vertebral alignment: Straightening of the spine with kyphosis changes. Spinal canal/Neural Foramina: Disc osteophyte complexes at C5-C6 and C6-C7. With at least mild spinal canal stenosis. Facet joint uncovertebral joint arthropathy scattered throughout the cervical spine with varying degrees of neural foraminal stenosis. Findings worse at C6-C7 bilaterally. Neck soft tissues: Prevertebral soft tissues are within normal limits. Other: The airway is patent. The lung apices are clear. Facial: Right supraorbital ridge edema with small hematoma. No evidence of fracture. IMPRESSION: 1. No acute intracranial process. 2. Nonspecific white matter changes, likely secondary to chronic small vessel ischemic disease. 3. Right superior orbital ridge edema/hematoma without evidence of fracture. No evidence of facial b one fracture. 4. No evidence of cervical spine fracture. 5. Moderate multilevel degenerative disc disease.
[2023-01-18] MEDS ORDERED: ACETAMINOPHEN TAB 500 MG TAB PO STA (18:50)
--- NOTE | 2023-01-18 18:51 | ED ---
General Adult HPI - General Chief complaint: Fall Stated complaint: Fell @ [employer] hit Head Time Seen by Provider: 01/18/23 16:59 Source: patient, family, RN notes reviewed Mode of arrival: wheelchair - History of Present Illness Initial comments: Patient is a 67-year-old male with history of Parkinson's who presents emergency department after falling at target. Patient gets into these episodes were he begins moving and is unable to stop which they believe is secondary to Parkinson's. Has fallen previously in similar situations. Is on Plavix. Fell after getting into a running episode. His pain over the right forehead where there is a hematoma present and a small superficial abrasion. Denies any other obvious injuries. Denies loss of consciousness. Presents for further evaluation. Fall occurred while the patient was at target. Presents with family member was assisting in the patient's history. - Related Data Home Medications Medication Instructions Recorded Confirmed Acetaminophen Tab [Tylenol] 1,000 mg PO Q8H PRN 12/09/20 11/11/22 Omeprazole 40 mg PO BID@0800,209912/09/20 11/11/22 Sertraline [Zoloft] 50 mg PO DAILY@0800 04/27/21 11/11/22 Aspirin 81 mg PO DAILY@1700 07/28/21 11/11/22 Metoprolol Tartrate [Lopressor] 25 mg PO DAILY@0800 07/28/21 11/11/22 Sennosides-Docusate Sodium 2 tab PO DAILY PRN 02/03/22 11/11/22 [Senokot-S] cloZAPine [Clozaril] 200 mg PO DAILY@1600 02/03/22 11/11/22 cloZAPine [Clozaril] 400 mg PO HS@209902/03/22 11/11/22 Atorvastatin [Lipitor] 80 mg PO HS@209907/04/22 11/11/22 Clopidogrel [Plavix] 75 mg PO DAILY@0800 07/04/22 11/11/22 Docusate [Colace] 100 mg PO BID@0800,1700 07/04/22 11/11/22 cloZAPine [Clozaril] 100 mg PO DAILY@0800 07/04/22 11/11/22 clonazePAM [KlonoPIN] 0.5 mg PO BID 11/11/22 11/11/22 Previous Rx's Medication Instructions Recorded HYDROcodone/APAP 7.5-325MG [[place] 1 tab PO Q6HR PRN 3 Days #12 tab 07/08/22 7.5-325] Cefdinir [Omnicef] 300 mg PO Q12HR #8 capsule 11/14/22 Tamsulosin [Flomax] 0.4 mg PO HS #0 11/14/22 Sulfamethox-Tmp 800-160Mg [Bactrim 1 tab PO Q12HR 7 Days #14 tab 12/15/22 DS 800-160 mg] Ciprofloxacin HCl [Cipro] 500 mg PO Q12HR #20 tablet 12/30/22 Allergies Allergy/AdvReac Type Severity Reaction Status Date / Time No Known Allergies Allergy Verified 01/18/23 16:43 Review of Systems ROS Statement: Those systems with pertinent positive or pertinent negative responses have been documented in the HPI. Review of Systems: CONST: Denies fever EYES: Denies blurry vision ENT: Denies nasal congestion C/V: Denies Chest pain RESP: Denies shortness of breath GI: Denies abdominal pain : Denies dysuria SKIN: Endorses hematoma to the right forehead MSK: Denies joint pain. NEURO: Denies headache ROS Other: All systems not noted in ROS Statement are negative. Past Medical History Past Medical History: Hypertension Additional Past Medical History / Comment(s): renal CA with surgery parkinson History of Any Multi-Drug Resistant Organisms: Unobtainable Past Surgical History: Heart Catheterization With Stent, Orthopedic Surgery Additional Past Surgical History / Comment(s): cryoablation for renal CA, Heart Catheterization 04/23/2021, Past Anesthesia/Blood Transfusion Reactions: No Reported Reaction Date of Last Stent Placement:: 04/23/21 Type of Cardiac Device: Biventricular Pacemaker, Unknown Device Placement Date:: unknown Past Psychological History: Schizophrenia Smoking Status: Never smoker Past Alcohol Use History: None Reported Past Drug Use History: None Reported - Past Family History Family Family Medical History: No Reported History General Exam - General Exam Comments Initial Comments: General: Appears in no acute distress. HEAD: Large hematoma over the right forehead, approximately the size of a ping- pong ball. No active bleeding. Small abrasion located that does not require closure over top of it. EYES: PERRLA, EOMI, conjunctiva normal, no discharge. Pupils 3 mm equal bilaterally. ENT: Hearing grossly intact, normal oropharynx. RESPIRATORY: Clear breath sounds bilaterally. No wheezes, rales, or rhonchi. C/V: Regular rate and rhythm. S1 and S2 auscultated, peripheral pulses 2+ and intact throughout ABD: Abd is soft, nontender, nondistended EXT: Normal range of motion, no obvious deformity. No midline cervical, thoracic, lumbar spine tenderness palpation. Pelvis is stable. SKIN: Hematoma over the right forehead with small abrasion. NEURO: Alert and oriented x 4. Cranial nerves II-XII intact. No acute focal sensory or strength deficits. NIH is 0. GCS 15. Course Vital Signs 01/18/23 01/18/23 16:34 19:09 Temperature 98.1 F 98 F Pulse Rate 87 84 Respiratory 18 16 Rate Blood Pressure 129/81 130/79 O2 Sat by Pulse 95 96 Oximetry Medical Decision Making - Medical Decision Making Was pt. sent in by a medical professional or institution (, PA, BOAT FINISHER, urgent care, hospital, or intermediate...) When possible be specific @ -No Did you speak to anyone other than the patient for history (EMS, parent, family, police, friend...)? What history was obtained from this source @ -No Did you review nursing and triage notes (agree or disagree)? Why? @ -I reviewed and agree with nursing and triage notes Were old charts reviewed (outside hosp., previous admission, EMS record, old EKG, old radiological studies, urgent care reports/EKG's, intermediate records)? Report findings @ -No old charts were reviewed Differential Diagnosis (chest pain, altered mental status, abdominal pain women, abdominal pain men, vaginal bleeding, weakness, fever, dyspnea, syncope, headache, dizziness, GI bleed, back pain, seizure, CVA, palpatations, mental health, musculoskeletal)? @ -Fall, intracranial injury, intracranial hemorrhage, hematoma, abrasion, laceration, this list is not occlusive. EKG interpreted by me (3pts min.). @ -None done X-rays interpreted by me (1pt min.). @ -Pelvis x-ray, chest x-ray reveals no obvious acute injury or process. CT interpreted by me (1pt min.). @ -Imaging the face, C-spine, brain reveals no obvious acute intracranial injury or process. No obvious acute facial bone fractures. No obvious acute cervical spine injury. Patient does have what appears to be a hematoma located over the right forehead demonstrated on imaging, which was seen on exam. U/S interpreted by me (1pt. min.). @ -None done What testing was considered but not performed or refused? (CT, X-rays, U/S, labs)? Why? @ -None What meds were considered but not given or refused? Why? @ -Initially declined analgesia medications. Did you discuss the management of the patient with other professionals (professionals i.e. , PA, BOAT FINISHER, lab, RT, psych nurse, social services aide, life claims examiner, teacher, labor relations officer, director case management)? Give summary @ -No Was smoking cessation discussed for >3mins.? @ -No Was critical care preformed (if so, how long)? @ -No Were there social determinants of health that impacted care today? How? (Homelessness, low income, unemployed, alcoholism, drug addiction, transportation, low edu. Level, literacy, decrease access to med. care, care home, rehab)? @ -No Was there de-escalation of care discussed even if they declined (Discuss DNR or withdrawal of care, Hospice)? DNR status @ -No What co-morbidities impacted this encounter? (DM, HTN, Smoking, COPD, CAD, Cancer, CVA, ARF, Chemo, Hep., AIDS, mental health diagnosis, sleep apnea, morbid obesity)? @ -None Was patient admitted / discharged? Hospital course, mention meds given and route, prescriptions, significant lab abnormalities, going to OR and other p ertinent info. @ -Based on the patient's presentation and physical exam, presents after falling from standing, not above ground-level on Plavix. No loss of consciousness. Has a hematoma over the forehead. We will obtain CT brain, C- spine, facial bones as well as chest and pelvis x-ray. No other obvious injuries. Is not requiring closure of the abrasion. Up-to-date on tetanus. Vital signs within acceptable limits. At baseline mental status. Imaging shows no obvious acute fracture or subluxation. No obvious acute injury other than the hematoma. I updated the patient. He will be given Tylenol. He'll be discharged home at this time with strict return precautions. They were in agreement this plan. I instructed the patient to follow up with their PCP in the next 1-3 days. I explained that the patient should return to the emergency department if they experience any worsening symptoms. Strict return precautions were discussed with the patient. The patient expressed understanding of these instructions. I answered all questions that the patient had. The patient was discharged home in good condition with their prescriptions and follow up information. Undiagnosed new problem with uncertain prognosis? @ -No Drug Therapy requiring intensive monitoring for toxicity (Heparin, Nitro, Insulin, Cardizem)? @ -No Were any procedures done? @ -No Diagnosis/symptom? @ -Mechanical fall, forehead hematoma, abrasion Acute, or Chronic, or Acute on Chronic? @ -Acute Uncomplicated (without systemic symptoms) or Complicated (systemic symptoms)? @ -Uncomplicated Side effects of treatment? @ -No Exacerbation, Progression, or Severe Exacerbation? @ -No Poses a threat to life or bodily function? How? (Chest pain, [place], [place], pneumonia, PE, COPD, DKA, ARF, appy, cholecystitis, CVA, Diverticulitis, Homicidal, Suicidal, threat to staff... and all critical care pts) @ -No Disposition Clinical Impression: Fall, Traumatic hematoma of forehead, Abrasion Disposition: HOME SELF-CARE Condition: Good Instructions (If sedation given, give patient instructions): Fall Prevention for Older Adults (ED) Is patient prescribed a controlled substance at d/c from ED?: No Referrals: [facility],Clinic [Primary Care Provider] - 1-2 days Time of Disposition: 18:42
[2023-01-18 19:11] VITALS: BP 130/79; PULSE 84; RESP 16; TEMP 98
== END 2023-01-18 19:11 | disposition home or self-care (01) ==
LOC: EC 16:22
DX: S00.83XA Contusion of other part of head, initial encounter (principal); I10 Essential (primary) hypertension; G20 Parkinson's disease; F20.9 Schizophrenia, unspecified; Z79.02 Long term (current) use of antithrombotics/antiplatelets; Z79.82 Long term (current) use of aspirin; Z79.899 Other long term (current) drug therapy; W01.0XXA Fall on same level from slipping, tripping and stumbling without subsequent striking against object, initial encounter
CPT/HCPCS: 70450; 70486; 71046; 72125; 72170; 99284

== ENCOUNTER 2023-05-31 15:29 | Emergency (ER) | payer OTHER, MEDICARE ==
--- NOTE | 2023-05-31 16:29 | ED ---
Psych HPI - General Source: patient, EMS, RN notes reviewed Mode of arrival: EMS Limitations: no limitations <Herman Terrazas - Last Filed: 05/31/23 16:24> <Anais Simeon - Last Filed: 06/01/23 01:32> - General Chief Complaint: Psychiatric Symptoms Stated Complaint: Mental Health Time Seen by Provider: 05/31/23 15:35 - History of Present Illness Initial Comments: 67-year-old male presents emergency Department via EMS chief complaint of depression, suicidal ideation. Patient states that she has to go schizophrenia, depression. He does not have current plan to harm himself. There was reports that his medications have been off. Patient denies any homicidal ideation at this time denies any illicit drug use no alcohol abuse. (Herman Terrazas) - Related Data Home Medications Medication Instructions Recorded Confirmed Omeprazole 40 mg PO DAILY@0700 12/09/20 05/31/23 Aspirin 81 mg PO DAILY@0700 07/28/21 05/31/23 Metoprolol Tartrate [Lopressor] 25 mg PO BID@0700,1900 07/28/21 05/31/23 cloZAPine [Clozaril] 300 mg PO HS@1900 02/03/22 05/31/23 Atorvastatin [Lipitor] 80 mg PO HS@1900 07/04/22 05/31/23 Clopidogrel [Plavix] 75 mg PO DAILY@0700 07/04/22 05/31/23 Docusate [Colace] 100 mg PO BID@0700,1900 07/04/22 05/31/23 cloZAPine [Clozaril] 200 mg PO BID@0700,1430 07/04/22 05/31/23 clonazePAM [KlonoPIN] 0.5 mg PO BID@0700,1900 11/11/22 05/31/23 Carbidopa-Levodopa 25-100 mg 1 tab PO QID 05/31/23 05/31/23 [Sinemet 25-100] DULoxetine HCL [Cymbalta] 60 mg PO DAILY@0700 05/31/23 05/31/23 Tamsulosin [Flomax] 0.4 mg PO HS@1900 05/31/23 05/31/23 Allergies Allergy/AdvReac Type Severity Reaction Status Date / Time No Known Allergies Allergy Verified 05/31/23 21:25 Review of Systems ROS Other: All systems not noted in ROS Statement are negative. <Herman Terrazas - Last Filed: 05/31/23 16:24> ROS Other: All systems not noted in ROS Statement are negative. <Anais Simeon Radha - Last Filed: 06/01/23 01:32> ROS Statement: Those systems with pertinent positive or pertinent negative responses have been documented in the HPI. Past Medical History Past Medical History: Hypertension Additional Past Medical History / Comment(s): renal CA with surgery parkinson History of Any Multi-Drug Resistant Organisms: Unobtainable Past Surgical History: Heart Catheterization With Stent, Orthopedic Surgery Additional Past Surgical History / Comment(s): cryoablation for renal CA, Heart Catheterization 04/23/2021, Past Anesthesia/Blood Transfusion Reactions: No Reported Reaction Date of Last Stent Placement:: 04/23/21 Type of Cardiac Device: Biventricular Pacemaker, Unknown Device Placement Date:: unknown Past Psychological History: Depression, Schizophrenia Smoking Status: Never smoker Past Alcohol Use History: None Reported Past Drug Use History: None Reported - Past Family History Family Family Medical History: No Reported History <Herman Terrazas Annalise - Last Filed: 05/31/23 16:24> General Exam Limitations: no limitations General appearance: alert, in no apparent distress Head exam: Present: atraumatic, normocephalic, normal inspection Eye exam: Present: normal appearance, PERRL, EOMI. Absent: scleral icterus, conjunctival injection, periorbital swelling ENT exam: Present: normal exam, normal oropharynx, mucous membranes moist Neck exam: Present: normal inspection, full ROM. Absent: tenderness, meningismus, lymphadenopathy Respiratory exam: Present: normal lung sounds bilaterally. Absent: respiratory distress, wheezes, rales, rhonchi, stridor Cardiovascular Exam: Present: regular rate, normal rhythm, normal heart sounds. Absent: systolic murmur, diastolic murmur, rubs, gallop, clicks Neurological exam: Present: alert, oriented X3 Psychiatric exam: Present: depressed, flat affect <Herman Terrazas - Last Filed: 05/31/23 16:24> Course Vital Signs 05/31/23 05/31/23 06/01/23 15:31 16:44 00:11 Temperature 97.9 F 97.5 F L Pulse Rate 79 69 66 Respiratory 18 18 16 Rate Blood Pressure 198/106 185/99 136/82 O2 Sat by Pulse 99 100 97 Oximetry Medical Decision Making <Anais Simeon - Last Filed: 06/01/23 01:32> - Medical Decision Making Was pt. sent in by a medical professional or institution (, PA, RESOURCE CONSERVATION MANAGER, urgent care, hospital, or penitentiary...) When possible be specific @ -No Did you speak to anyone other than the patient for history (EMS, parent, family, police, friend...)? What history was obtained from this source @ -No Did you review nursing and triage notes (agree or disagree)? Why? @ -I reviewed and agree with nursing and triage notes Were old charts reviewed (outside hosp., previous admission, EMS record, old EKG, old radiological studies, urgent care reports/EKG's, penitentiary records)? Report findings @ -old charts were reviewed Differential Diagnosis (chest pain, altered mental status, abdominal pain women, abdominal pain men, vaginal bleeding, weakness, fever, dyspnea, syncope, headache, dizziness, GI bleed, back pain, seizure, CVA, palpatations, mental health, musculoskeletal)? @ -Differential Mental Health Depression, anxiety, bipolar, psychosis, schizophrenia, borderline personality, situational depression, adjustment disorder, behavioral disorder, brain tumor, malingering, substance abuse, encephalopathy, medication reaction, dementia, hypothyroidism, degenerative neurologic disorder, lupus.... This is not meant to be all-inclusive list EKG interpreted by me (3pts min.). @ -Not done X-rays interpreted by me (1pt min.). @ -None done CT interpreted by me (1pt min.). @ -None done U/S interpreted by me (1pt. min.). @ -None done What testing was considered but not performed or refused? (CT, X-rays, U/S, labs)? Why? @ -None What meds were considered but not given or refused? Why? @ -None Did you discuss the management of the patient with other professionals (professionals i.e. , PA, RESOURCE CONSERVATION MANAGER, lab, RT, psych nurse, social studies teacher, demonstrator sales, teacher, chief operations officer, rifle case repairer)? Give summary @ -EPS nurse evaluated the patient Was smoking cessation discussed for >3mins.? @ -No Was critical care preformed (if so, how long)? @ -No Were there social determinants of health that impacted care today? How? (Homelessness, low income, unemployed, alcoholism, drug addiction, transportation, low edu. Level, literacy, decrease access to med. care, fci, rehab)? @ -No Was there de-escalation of care discussed even if they declined (Discuss DNR or withdrawal of care, Hospice)? DNR status @ -No What co-morbidities impacted this encounter? (DM, HTN, Smoking, COPD, CAD, Cancer, CVA, ARF, Chemo, Hep., AIDS, mental health diagnosis, sleep apnea, morbid obesity)? @ -Schizophrenia Was patient admitted / discharged? Hospital course, mention meds given and route, prescriptions, significant lab abnormalities, going to OR and other pertinent info. @ -Upon arrival patient was placed in room 12. Thorough history and physical exam was performed. Patient is evaluated by EPS. He is not suicidal or homicidal. Patient will be discharged after safety plan. Instructed to continue taking his medications as directed and follow-up with his psychiatrist for further medication evaluation and adjustment Undiagnosed new problem with uncertain prognosis? @ -No Drug Therapy requiring intensive monitoring for toxicity (Heparin, Nitro, Insulin, Cardizem)? @ -No Were any procedures done? @ -No Diagnosis/symptom? @ -Acute depression, acute on chronic hallucinations Acute, or Chronic, or Acute on Chronic? @ -Acute on chronic Uncomplicated (without systemic symptoms) or Complicated (systemic symptoms)? @ -Complicated Side effects of treatment? @ -No Exacerbation, Progression, or Severe Exacerbation? @ -No Poses a threat to life or bodily function? How? (Chest pain, [place], [place], pneumonia, PE, COPD, DKA, ARF, appy, cholecystitis, CVA, Diverticulitis, Homicidal, Suicidal, threat to staff... and all critical care pts) @ -No (Anais Simeon) - Lab Data Lab Results 05/31/23 Range/Units 16:13 Urine Opiates Screen Not Detected (NotDetected) Ur Oxycodone Screen Not Detected (NotDetected) Urine Methadone Screen Not Detected (NotDetected) Ur Propoxyphene Screen Not Detected (NotDetected) Ur Barbiturates Screen Not Detected (NotDetected) U Tricyclic Antidepress Not Detected (NotDetected) Ur Phencyclidine Scrn Not Detected (NotDetected) Ur Amphetamines Screen Not Detected (NotDetected) U Methamphetamines Scrn Not Detected (NotDetected) U Benzodiazepines Scrn Not Detected (NotDetected) Urine Cocaine Screen Not Detected (NotDetected) U Marijuana (THC) Screen Not Detected (NotDetected) Disposition <Herman Terrazas M - Last Filed: 05/31/23 16:24> Is patient prescribed a controlled substance at d/c from ED?: No Time of Disposition: 01:22 <Anais Simeon - Last Filed: 06/01/23 01:32> Clinical Impression: Schizophrenia Disposition: HOME SELF-CARE Condition: Stable Instructions (If sedation given, give patient instructions): Schizophrenia (ED) Referrals: [facility],Clinic [Primary Care Provider] - 1-2 days
[2023-05-31] MEDS ORDERED: cloNIDine HCL 0.2 MG TAB PO STA (16:45)
[2023-05-31 16:50] LABS: Amphetamine Screen,Urine Not Detected (NotDetected); Barbiturate Screen,Urine Not Detected (NotDetected); Benzodiazepines Screen,Urine Not Detected (NotDetected); Cocaine Screen,Urine Not Detected (NotDetected); Methadone Screen, Urine Not Detected (NotDetected); Opiate Screen,Urine Not Detected (NotDetected); Oxycodone Screen, Urine Not Detected (NotDetected); Phencyclidine Screen,Urine Not Detected (NotDetected); Tricyclic Antidepressant,Urine Not Detected (NotDetected); Urn Cannabinoid Scrn Not Detected (NotDetected)
[2023-06-01 00:25] VITALS: BP 136/82; PULSE 66; RESP 16; TEMP 97.5
== END 2023-06-01 01:40 | disposition home or self-care (01) ==
LOC: EC 15:29
DX: F20.9 Schizophrenia, unspecified (principal); I10 Essential (primary) hypertension; F32.A Depression, unspecified; Z79.899 Other long term (current) drug therapy
CPT/HCPCS: 80306; 82075; 99285

== ENCOUNTER 2023-06-14 16:22 | Inpatient (IN) | payer OTHER, MEDICARE ==
--- NOTE | 2023-06-14 17:13 | ED ---
General Adult HPI - General Chief complaint: Weakness Stated complaint: Weakness Time Seen by Provider: 06/14/23 16:30 Source: patient, family Mode of arrival: wheelchair - History of Present Illness Initial comments: Dictation was produced using [employer] dictation software. please excuse any grammatical, word or spelling errors. Chief Complaint: 67-year-old male presents emergency department for generalized weakness History of Present Illness: Patient is a 59-year-old male he lives at [facility], assisted-living [facility]. He is accompanied by his sister and guardian. Patient is a history of schizophrenia and Parkinson's disease. Over the last several days she's been having increasing weakness. Staff at [facility] was concerned of his well-being and insistent patient's sister that he should be seen in the emergency department. Patient states that he feels significantly weak. Denies any pain complaints. No shortness of breath no fever or constitutional symptoms. The ROS documented in this emergency department record has been reviewed and confirmed by me. Those systems with pertinent positive or negative responses have been documented in the HPI. All other systems are other negative and/or noncontributory. - Related Data Home Medications Medication Instructions Recorded Confirmed Omeprazole 40 mg PO DAILY@0700 12/09/20 06/14/23 Aspirin 81 mg PO DAILY 07/28/21 06/14/23 Metoprolol Tartrate [Lopressor] 25 mg PO BID 07/28/21 06/14/23 cloZAPine [Clozaril] 300 mg PO HS@1930 02/03/22 06/14/23 Atorvastatin [Lipitor] 80 mg PO HS 07/04/22 06/14/23 Clopidogrel [Plavix] 75 mg PO DAILY 07/04/22 06/14/23 cloZAPine [Clozaril] 200 mg PO BID@0700,1430 07/04/22 06/14/23 clonazePAM [KlonoPIN] 0.5 mg PO BID 11/11/22 06/14/23 Carbidopa-Levodopa 25-100 mg 1 tab PO QID 05/31/23 06/14/23 [Sinemet 25-100] DULoxetine HCL [Cymbalta] 60 mg PO DAILY 05/31/23 06/14/23 Tamsulosin [Flomax] 0.4 mg PO HS@1930 05/31/23 06/14/23 Sennosides/Docusate Sodium [Senna 2 tab PO DAILY PRN 06/14/23 06/14/23 Plus 8.6-50 mg Tablet] Allergies Allergy/AdvReac Type Severity Reaction Status Date / Time No Known Allergies Allergy Verified 06/14/23 19:03 Review of Systems ROS Statement: Those systems with pertinent positive or pertinent negative responses have been documented in the HPI. ROS Other: All systems not noted in ROS Statement are negative. Past Medical History Past Medical History: Hypertension Additional Past Medical History / Comment(s): renal CA with surgery parkinson History of Any Multi-Drug Resistant Organisms: Unobtainable Past Surgical History: Heart Catheterization With Stent, Orthopedic Surgery Additional Past Surgical History / Comment(s): cryoablation for renal CA, Heart Catheterization 04/23/2021, Past Anesthesia/Blood Transfusion Reactions: No Reported Reaction Date of Last Stent Placement:: 04/23/21 Type of Cardiac Device: Biventricular Pacemaker, Unknown Device Placement Date:: unknown Past Psychological History: Schizophrenia Smoking Status: Never smoker Past Alcohol Use History: None Reported Past Drug Use History: None Reported - Past Family History Family Family Medical History: No Reported History General Exam - General Exam Comments Initial Comments: PHYSICAL EXAM: General Impression: Alert and oriented x3, sleepy, arousable HEENT: Normocephalic atraumatic, extra-ocular movements intact, pupils equal and reactive to light bilaterally, mucous membranes moist. Cardiovascular: Heart regular rate and rhythm Chest: Able to complete full sentences, no retractions, no tachypnea Abdomen: abdomen soft, non-tender, non-distended, no organomegaly Musculoskeletal: Pulses present and equal in all extremities, no peripheral edema Motor: no focal deficits noted Neurological: CN II-XII grossly intact, no focal motor or sensory deficits noted Skin: Intact with no visualized rashes Psych: Normal affect and mood Course Vital Signs 06/14/23 06/14/23 06/14/23 16:25 16:45 17:00 Temperature 98.0 F Pulse Rate 82 71 74 Respiratory 18 14 16 Rate Blood Pressure 89/59 119/68 117/67 O2 Sat by Pulse 98 97 98 Oximetry 06/14/23 06/14/23 06/14/23 17:30 18:00 19:15 Temperature 102 F H Pulse Rate 80 90 Respiratory 18 17 20 Rate Blood Pressure 130/73 132/69 145/77 O2 Sat by Pulse 99 98 99 Oximetry EKG Findings - EKG Comments: EKG Findings:: My EKG interpretation: Ventricular rate 81, sinus rhythm,. Interval 135, QRS 90, QTc 412. No AL prolongation, no QTC prolongation, no ST or T-wave changes noted. Overall, this EKG is unremarkable Medical Decision Making - Medical Decision Making Was pt. sent in by a medical professional or institution (, PA, SURGICAL GARMENT INSPECTOR, urgent care, hospital, or senior care...) When possible be specific @ -No Did you speak to anyone other than the patient for history (EMS, parent, family, police, friend...)? What history was obtained from this source @ -No Did you review nursing and triage notes (agree or disagree)? Why? @ -I reviewed and agree with nursing and triage notes Were old charts reviewed (outside hosp., previous admission, EMS record, old EKG, old radiological studies, urgent care reports/EKG's, senior care records)? Report findings @ -No old charts were reviewed Differential Diagnosis (chest pain, altered mental status, abdominal pain women, abdominal pain men, vaginal bleeding, musculoskeletal, weakness, fever, dyspnea, syncope, headache, dizziness, GI bleed, back pain, seizure, CVA, palpatations, mental health)? @ -Differential Fever: Pneumonia, viral URI, endocarditis, myocarditis, pericarditis, otitis, sinusitis, peritonsillar Abscess, retropharyngeal Abscess, epiglottitis, perito nitis, appendicitis, Shira cystitis, diverticulitis, hepatitis, colitis, UTI, PID, TOA, pyelonephritis, prostatitis, epididymitis, meningitis, encephalitis, pulmonary embolism, CVA, thyroid storm, pancreatitis, adrenal crisis, cavernous sinus thrombosis, this is not meant to be an all-inclusive list. EKG interpreted by me (3pts min.). @ -None done X-rays interpreted by me (1pt min.). @ -X-ray shows no obvious infiltrate. In the chest CT interpreted by me (1pt min.). @ -None done U/S interpreted by me (1pt. min.). @ -None done What testing was considered but not performed or refused? (CT, X-rays, U/S, l abs)? Why? @ -None What meds were considered but not given or refused? Why? @ -None Did you discuss the management of the patient with other professionals (professionals i.e. , PA, SURGICAL GARMENT INSPECTOR, lab, RT, psych nurse, manager social media, field collector, teacher, environmental conservation officer, case mgr)? Give summary @ -Discussed with hospitalist for admission Was smoking cessation discussed for >3mins.? @ -No Was critical care preformed (if so, how long)? @ -No Were there social determinants of health that impacted care today? How? (Prakash elessness, low income, unemployed, alcoholism, drug addiction, transportation, low edu. Level, literacy, decrease access to med. care, group home, rehab)? @ -No Was there de-escalation of care discussed even if they declined (Discuss DNR or withdrawal of care, Hospice)? DNR status @ -No What co-morbidities impacted this encounter? (DM, HTN, Smoking, COPD, CAD, Cancer, CVA, ARF, Chemo, Hep., AIDS, mental health diagnosis, sleep apnea, morbid obesity)? @ -None Was patient admitted / discharged? Hospital course, mention meds given and route, prescriptions, significant lab abnormalities, going to OR and other pertinent info. @ -59-year-old male past medical history of schizophrenia and Parkinson's disease presents to the ER for generalized weakness. Initial vitals are negative however repeat temperature shows 102. Rest of vital signs otherwise remain normal. Laboratory evaluation unremarkable. Mild leukocytosis at 13.5. Hyponatremia 127. Vital testing is negative. X-ray shows no obvious infiltrate. Patient be admitted for SIRS. Pending blood cultures. Patient started on antibiotics Undiagnosed new problem with uncertain prognosis? @ -No Drug Therapy requiring intensive monitoring for toxicity (Heparin, Nitro, Insulin, Cardizem)? @ -No Were any procedures done? @ -No Diagnosis/symptom? Acute, or Chronic, or Acute on Chronic? Uncomplicated (without systemic symptoms) or Complicated (systemic symptoms)? @ -SIRS Side effects of treatment? @ -No Exacerbation, Progression, or Severe Exacerbation? @ -No Poses a threat to life or bodily function? How? (Chest pain, [place], [place], pneumonia, PE, COPD, DKA, ARF, appy, cholecystitis, CVA, Diverticulitis, Homicidal, Suicidal, threat to staff... and all critical care pts) @ -yes - Lab Data Result diagrams: 06/14/23 17:03 06/14/23 17:03 Lab Results 06/14/23 06/14/23 06/14/23 Range/Units 17:03 17:03 17:03 WBC 13.5 H (3.8-10.6) k/uL RBC 4.32 (4.30-5.90) m/uL Hgb 11.7 L (13.0-17.5) gm/dL Hct 35.6 L (39.0-53.0) % MCV 82.4 (80.0-100.0) fL MCH 27.1 (25.0-35.0) pg MCHC 32.9 (31.0-37.0) g/dL RDW 16.9 H (11.5-15.5) % Plt Count 260 (150-450) k/uL MPV 7.8 Neutrophils % 87 % Lymphocytes % 4 % Monocytes % 8 % Eosinophils % 0 % Basophils % 0 % Neutrophils # 11.7 H (1.3-7.7) k/uL Lymphocytes # 0.5 L (1.0-4.8) k/uL Monocytes # 1.0 (0-1.0) k/uL Eosinophils # 0.0 (0-0.7) k/uL Basophils # 0.0 (0-0.2) k/uL Anisocytosis Slight Sodium 127 L (137-145) mmol/L Potassium 4.0 (3.5-5.1) mmol/L Chloride 96 L (98-107) mmol/L Carbon Dioxide 22 (22-30) mmol/L Anion Gap 9 mmol/L BUN 10 (9-20) mg/dL Creatinine 1.08 (0.66-1.25) mg/dL Est GFR (CKD-EPI)AfAm 81 (>60 ml/min/1.73 sqM) Est GFR (CKD-EPI)NonAf 70 (>60 ml/min/1.73 sqM) Glucose 106 H (74-99) mg/dL Calcium 8.6 (8.4-10.2) mg/dL Magnesium 2.0 (1.6-2.3) mg/dL Total Bilirubin 1.1 (0.2-1.3) mg/dL AST 16 L (17-59) U/L ALT 7 (4-49) U/L Alkaline Phosphatase 68 (38-126) U/L Ammonia <9 (<30) umol/L Total Protein 6.0 L (6.3-8.2) g/dL Albumin 3.7 (3.5-5.0) g/dL Influenza Type A (PCR) (Not Detectd) Influenza Type B (PCR) (Not Detectd) RSV (PCR) (Not Detectd) SARS-CoV-2 (PCR) (Not Detectd) 06/14/23 Range/Units 17:03 WBC (3.8-10.6) k/uL RBC (4.30-5.90) m/uL Hgb (13.0-17.5) gm/dL Hct (39.0-53.0) % MCV (80.0-100.0) fL MCH (25.0-35.0) pg MCHC (31.0-37.0) g/dL RDW (11.5-15.5) % Plt Count (150-450) k/uL MPV Neutrophils % % Lymphocytes % % Monocytes % % Eosinophils % % Basophils % % Neutrophils # (1.3-7.7) k/uL Lymphocytes # (1.0-4.8) k/uL Monocytes # (0-1.0) k/uL Eosinophils # (0-0.7) k/uL Basophils # (0-0.2) k/uL Anisocytosis Sodium (137-145) mmol/L Potassium (3.5-5.1) mmol/L Chloride (98-107) mmol/L Carbon Dioxide (22-30) mmol/L Anion Gap mmol/L BUN (9-20) mg/dL Creatinine (0.66-1.25) mg/dL Est GFR (CKD-EPI)AfAm (>60 ml/min/1.73 sqM) Est GFR (CKD-EPI)NonAf (>60 ml/min/1.73 sqM) Glucose (74-99) mg/dL Calcium (8.4-10.2) mg/dL Magnesium (1.6-2.3) mg/dL Total Bilirubin (0.2-1.3) mg/dL AST (17-59) U/L ALT (4-49) U/L Alkaline Phosphatase (38-126) U/L Ammonia (<30) umol/L Total Protein (6.3-8.2) g/dL Albumin (3.5-5.0) g/dL Influenza Type A (PCR) Not Detected (Not Detectd) Influenza Type B (PCR) Not Detected (Not Detectd) RSV (PCR) Not Detected (Not Detectd) SARS-CoV-2 (PCR) Not Detected (Not Detectd) Disposition Clinical Impression: SIRS (systemic inflammatory response syndrome) Disposition: ADMITTED IP TO THIS HOSP Condition: Fair Referrals: [facility],Clinic [Primary Care Provider] - 1-2 days Decision Time: 20:29
[2023-06-14 17:30] LABS: Anisocytosis Slight; Basophils % (A) 0 %; Eosinophils % (A) 0 %; HCT 35.6 % (39.0-53.0); HGB 11.7 gm/dL (13.0-17.5); Lymphocytes # (A) 0.5 k/uL (1.0-4.8); Lymphocytes % (A) 4 %; MCH 27.1 pg (25.0-35.0); MCHC 32.9 g/dL (31.0-37.0); MCV 82.4 fL (80.0-100.0); Mean Platelet Volume 7.8; Monocytes % (A) 8 %; Neutrophils # (A) 11.7 k/uL (1.3-7.7); Neutrophils % (A) 87 %; Platelet Count 260 k/uL (150-450); RBC 4.32 m/uL (4.30-5.90); RDW 16.9 % (11.5-15.5); WBC 13.5 k/uL (3.8-10.6)
--- NOTE | 2023-06-14 17:41 | CT ---
EXAMINATION TYPE: CT brain wo con DATE OF EXAM: 06/14/2023 COMPARISON: 01/18/2003 HISTORY: weakness, ams CT DLP: 1619.2 mGycm Automated exposure control for dose reduction was used. FINDINGS: The ventricles, basal cisterns and sulci over the convexities are mildly enlarged consistent with mil d generalized atrophy. There is no mass effect or shift of midline structures No abnormal density is seen throughout the brain parenchyma and there is no acute intra or extra-axia l hemorrhage. The posterior fossa is grossly normal. Intraorbital contents appear normal and symmetric visualized paranasal sinuses and mastoid air cells are well aerated. IMPRESSION: No acute bleed or mass effect. Mild generalized atrophy. IMPRESSION:
[2023-06-14 17:44] LABS: ALT 7 U/L (4-49); AST 16 U/L (17-59); African American GFR (CKD) 81 (>60 ml/min/1.73 sqM); Albumin 3.7 g/dL (3.5-5.0); Alkaline Phosphatase 68 U/L (38-126); Anion Gap 9 mmol/L; Blood Urea Nitrogen 10 mg/dL (9-20); Calcium 8.6 mg/dL (8.4-10.2); Carbon Dioxide 22 mmol/L (22-30); Chloride 96 mmol/L (98-107); Glucose 106 mg/dL (74-99); Non-African American GFR(CKD) 70 (>60 ml/min/1.73 sqM); Sodium 127 mmol/L (137-145); Total Bilirubin 1.1 mg/dL (0.2-1.3)
[2023-06-14] MEDS ORDERED: SODIUM CHLORIDE 0.9% 1,000 ML IV STA (17:58)
[2023-06-14] MEDS ORDERED: ACETAMINOPHEN TAB 500 MG TAB PO STA (20:18)
[2023-06-14] MEDS ORDERED: VANCOMYCIN IV PER PHARMACY 1 EACH MISC MISCELLANE PRN (20:25)
[2023-06-14] MEDS ORDERED: NALOXONE 0.4 MG/ML 1 ML VIAL IV PRN (20:25)
[2023-06-14] MEDS ORDERED: PIPERACILLIN-TAZOBACTAM 3.375 GM in SODIUM CHLORIDE 0.9% 100 ML IVPB STA (20:28)
[2023-06-14] MEDS ORDERED: VANCOMYCIN 1,500 MG in SODIUM CHLORIDE 0.9% 500 ML 500 ML IVPB STA (20:29)
--- NOTE | 2023-06-14 21:01 | XR ---
EXAMINATION TYPE: XR chest 2V DATE OF EXAM: 06/14/2023 7:56 PM CLINICAL INDICATION:Male, 67 years old with history of fever weakness; [facility] COMPARISON: 01/18/2023 TECHNIQUE: XR chest 2V Frontal and lateral views of the chest. FINDINGS: Lines/Tubes: EKG leads overlie the chest. No indwelling lines are seen. Lungs/Pleura: There is no evidence of pleural effusion, focal consolidation, or pneumothorax. Pulmonary vascularity: Unremarkable. Heart/mediastinum: Cardiomediastinal silhouette is unremarkable. Heart size upper limits of normal. Mildly tortuous aorta. Musculoskeletal: No acute osseous pathology. Mild degenerative changes of the spine and shoulders. Other findings: None IMPRESSION: No acute cardiopulmonary disease/process.
[2023-06-14] MEDS: SODIUM CHLORIDE 0.9% 1,000 ML IV SCH (23:13)
[2023-06-15 02:48] LABS: African American GFR (CKD) 87 (>60 ml/min/1.73 sqM); Non-African American GFR(CKD) 75 (>60 ml/min/1.73 sqM)
--- NOTE | 2023-06-15 02:56 | P.HPIM ---
History of Present Illness H&P Date: 06/14/23 Patient is a 67-year-old male with a PMH of CAD status post stenting, schizophrenia, Parkinson's, hypertension, and renal cancer status post cryoablation surgery, resident of [facility] who was brought to the emergency room for gradually worsening weakness. The patient r eports that he hasn't been feeling well for several days now and that he had been getting increasingly weak. He also reported chills during this time. He further states experiencing neck pain with a mild headache which he reports are chronic. He was somewhat slow to respond and lethargic at the time of interview. Denied cough, dysuria, headaches, visual disturbances, or neck pain. In the emergency room a CT brain was unremarkable chest x-ray also unremarkable, and EKG showing sinus rhythm at [address]/T-wave changes noted. Laboratory evaluation was remarkable for leukocytosis of 13.5, sodium 127, chloride 96, glucose 106, with UA somewhat consistent with UTI. The patient had a T-max of 102F in the emergency room. ED documentation reviewed and case discussed with ED provider. Review of systems: Pertinent positives and negatives as discussed in HPI, a complete review of systems was performed and all other systems are negative. Physical examination: Vital signs reviewed General: non toxic, no distress, appears at stated age, normal weight Derm: no unusual rashes/lesions, warm Head: atraumatic, normocephalic, symmetric Eyes: EOMI, no lid lag, anicteric sclera, pupils equal round reactive to light ENT: Nose and ears atraumatic Neck: No cervical lymphadenopathy, trachea midline, supple Mouth: no lip lesion, mucus membranes moist Cardiovascular: S1S2 reg, no murmur, positive dorsalis pedis pulse bilateral, no edema Lungs: CTA bilateral, no rhonchi, no rales, no accessory muscle use Abdominal: soft, nontender to palpation, no guarding Ext: muscle strength 5 out of 5 in all 4 extremities grossly, no gross muscle atrophy, no contractures, Neuro: CN II-XI grossly intact, no gross focal neuro deficits Psych: Somewhat lethargic, oriented to person and place, not fully oriented to time Assessment: Sepsis, possibly secondary to UTI, unable to rule out meningitis/encephalitis Altered mental status, suspect secondary to above Hypochloremic hyponatremia, suspect due to poor oral intake Chronic conditions: CAD, schizophrenia, Parkinson's, hypertension Imaging: In the emergency room a CT brain was unremarkable chest x-ray also unremarkable, and EKG showing sinus rhythm at [address]/T-wave changes noted. Data Review: Laboratory evaluation was remarkable for leukocytosis of 13.5, sodium 127, chloride 96, glucose 106, with UA somewhat consistent with UTI Plan: Continue with broad-spectrum antibiotic coverage including Zosyn and vancomycin. Also start patient on acyclovir Infectious disease consult Follow-up blood and urine cultures IR consult for LP Continue with IV fluids and monitor BMP Resume home medications DVT prophylaxis: Lovenox subcu The patient is admitted with an anticipated greater than 2 midnight stay for evaluation of sepsis CODE STATUS: Full Code Discussed with: Patient Anticipated discharge place: Assisted living facility Past Medical History Past Medical History: Hypertension Additional Past Medical History / Comment(s): renal CA with surgery parkinson History of Any Multi-Drug Resistant Organisms: Unobtainable Past Surgical History: Heart Catheterization With Stent, Orthopedic Surgery Additional Past Surgical History / Comment(s): cryoablation for renal CA, Heart Catheterization 04/23/2021, Past Anesthesia/Blood Transfusion Reactions: No Reported Reaction Date of Last Stent Placement:: 04/23/21 Type of Cardiac Device: Biventricular Pacemaker, Unknown Device Placement Date:: unknown Past Psychological History: Schizophrenia Additional Psychological History / Comment(s): patient resides alone at [facility] Smoking Status: Never smoker Past Alcohol Use History: None Reported Past Drug Use History: None Reported - Past Family History Family Family Medical History: No Reported History Medications and Allergies Home Medications Medication Instructions Recorded Confirmed Type Omeprazole 40 mg PO DAILY@0700 12/09/20 06/14/23 History Aspirin 81 mg PO DAILY 07/28/21 06/14/23 History Metoprolol Tartrate [Lopressor] 25 mg PO BID 07/28/21 06/14/23 History cloZAPine [Clozaril] 300 mg PO HS@1930 02/03/22 06/14/23 History Atorvastatin [Lipitor] 80 mg PO HS 07/04/22 06/14/23 History Clopidogrel [Plavix] 75 mg PO DAILY 07/04/22 06/14/23 History cloZAPine [Clozaril] 200 mg PO BID@0700,1430 07/04/22 06/14/23 History clonazePAM [KlonoPIN] 0.5 mg PO BID 11/11/22 06/14/23 History Carbidopa-Levodopa 25-100 mg 1 tab PO QID 05/31/23 06/14/23 History [Sinemet 25-100] DULoxetine HCL [Cymbalta] 60 mg PO DAILY 05/31/23 06/14/23 History Tamsulosin [Flomax] 0.4 mg PO HS@1930 05/31/23 06/14/23 History Sennosides/Docusate Sodium [Senna 2 tab PO DAILY PRN 06/14/23 06/14/23 History Plus 8.6-50 mg Tablet] Allergies Allergy/AdvReac Type Severity Reaction Status Date / Time No Known Allergies Allergy Verified 06/14/23 19:03 Physical Exam Vitals: Vital Signs Temp Pulse Pulse Resp BP BP Pulse Ox 06/14/23 21:58 99.8 F H 88 17 127/75 97 06/14/23 21:18 101.8 F H 89 20 147/86 98 06/14/23 19:15 102 F H 90 20 145/77 99 06/14/23 18:00 80 17 132/69 98 06/14/23 17:30 18 130/73 99 06/14/23 17:00 74 16 117/67 98 06/14/23 16:45 71 14 119/68 97 06/14/23 16:25 98.0 F 82 18 89/59 98 Intake and Output 06/14/23 06/14/23 06/15/23 14:59 22:59 06:59 Other: Voiding Method Diaper Incontinent Weight 91.626 kg Results CBC & Chem 7: 06/14/23 17:03 06/15/23 02:22 Labs: Abnormal Lab Results - Last 24 Hours (Table) 06/14/23 06/14/23 Range/Units 17:03 17:03 WBC 13.5 H (3.8-10.6) k/uL Hgb 11.7 L (13.0-17.5) gm/dL Hct 35.6 L (39.0-53.0) % RDW 16.9 H (11.5-15.5) % Neutrophils # 11.7 H (1.3-7.7) k/uL Lymphocytes # 0.5 L (1.0-4.8) k/uL Sodium 127 L (137-145) mmol/L Chloride 96 L (98-107) mmol/L Glucose 106 H (74-99) mg/dL AST 16 L (17-59) U/L Total Protein 6.0 L (6.3-8.2) g/dL Thrombosis Risk Factor Assmnt - Choose All That Apply Any of the Below Risk Factors Present?: No Other Risk Factors: Yes Each Risk Factor Represents 2 Points: Age 61-74 years Thrombosis Risk Factor Assessment Total Risk Factor Score: 2 Thrombosis Risk Factor Assessment Level: Low Risk
[2023-06-15] MEDS ORDERED: SENNOSIDES-DOCUSATE SODIUM 1 EACH TAB PO PRN (03:01)
[2023-06-15] MEDS: ACYCLOVIR SODIUM 900 MG in SODIUM CHLORIDE 0.9% 250 ML IVPB SCH ×2 (04:04→12:03)
[2023-06-15] MEDS: PIPERACILLIN-TAZOBACTAM 3.375 GM in SODIUM CHLORIDE 0.9% 100 ML IVPB SCH ×3 (05:18→20:39)
[2023-06-15 06:01] LABS: Appearance,Urine Cloudy (Clear); Bacteria,Urine Rare /hpf; Bilirubin,Urine Negative (Negative); Blood,Urine Moderate (Negative); Color,Urine Yellow; Glucose,Urine (UA) Negative (Negative); Ketones,Urine Negative (Negative); Leukocyte Esterase,Urine Large (Negative); Mucus,Urine Rare /hpf; Nitrite,Urine Positive (Negative); Protein,Urine Trace (Negative); RBC,Urine 11 /hpf (0-5); Specific Gravity,Urine 1.015 (1.001-1.035); Urobilinogen,Urine <2.0 mg/dL (<2.0); WBC,Urine >182 /hpf (0-5)
[2023-06-15 06:28] LABS: Anisocytosis Slight; HCT 38.5 % (39.0-53.0); HGB 12.1 gm/dL (13.0-17.5); MCH 26.6 pg (25.0-35.0); MCHC 31.3 g/dL (31.0-37.0); MCV 84.8 fL (80.0-100.0); Mean Platelet Volume 7.9; Platelet Count 255 k/uL (150-450); RBC 4.54 m/uL (4.30-5.90); WBC 13.5 k/uL (3.8-10.6)
[2023-06-15 06:40] LABS: African American GFR (CKD) >90 (>60 ml/min/1.73 sqM); Anion Gap 10 mmol/L; Blood Urea Nitrogen 10 mg/dL (9-20); Calcium 8.2 mg/dL (8.4-10.2); Carbon Dioxide 21 mmol/L (22-30); Chloride 100 mmol/L (98-107); Glucose 98 mg/dL (74-99); Non-African American GFR(CKD) 89 (>60 ml/min/1.73 sqM); Potassium 4.1 mmol/L (3.5-5.1); Sodium 131 mmol/L (137-145)
[2023-06-15] MEDS: clonazePAM 0.5 MG TAB PO SCH ×2 (08:20→20:39)
[2023-06-15] MEDS: ACETAMINOPHEN TAB 325 MG TAB PO PRN ×2 (08:20→16:16)
[2023-06-15] MEDS: ASPIRIN 81 MG PO SCH (08:21)
[2023-06-15] MEDS: DULoxetine HCL 60 MG CAPSULE.DR PO SCH (08:21)
[2023-06-15] MEDS: ENOXAPARIN 40 MG/0.4 ML SYRINGE SQ SCH (08:21)
[2023-06-15] MEDS: METOPROLOL TARTRATE 25 MG TAB PO SCH ×2 (08:21→20:39)
[2023-06-15] MEDS: CARBIDOPA-LEVODOPA 25-100 MG 1 EACH TAB PO SCH ×4 (08:21→20:39)
[2023-06-15] MEDS ORDERED: CLOPIDOGREL 75 MG TAB PO SCH (09:00)
[2023-06-15] MEDS ORDERED: VANCOMYCIN 1,500 MG in SODIUM CHLORIDE 0.9% 500 ML 500 ML IVPB SCH (09:00)
[2023-06-15] MEDS: SODIUM CHLORIDE 0.9% 1,000 ML IV SCH ×2 (12:04→22:30)
--- NOTE | 2023-06-15 14:28 | P.PN ---
Subjective Progress Note Date: 06/15/23 Patient is a 67-year-old male with a PMH of CAD status post stenting, schizophrenia, Parkinson's, hypertension, and renal cancer status post cryoablation surgery, resident of [facility] who was brought to the emergency room for gradually worsening weakness. The patient reports that he hasn't been feeling well for several days now and that he had been getting increasingly weak. He also reported chills during this time. He further states experiencing neck pain with a mild headache which he reports are chronic. He was somewhat slow to respond and lethargic at the time of interview. Denied cough, dysuria, headaches, visual disturbances, or neck pain. In the emergency room a CT brain was unremarkable chest x-ray also unremarkable, and EKG showing sinus rhythm at [address]/T-wave changes noted. Laboratory evaluation was remarkable for leukocytosis of 13.5, sodium 127, chloride 96, glucose 106, with UA somewhat consistent with UTI. The patient had a T-max of 102F in the emergency room. 06/15 Patient was seen and examined. CBC WBC 13.5 Hg 12.5. BMP Na 131, bicarb 21, Ca 8.2. Vital signs reviewed General: non toxic, no distress, appears at stated age, normal weight Derm: no unusual rashes/lesions, warm Head: atraumatic, normocephalic, symmetric Eyes: EOMI, no lid lag, anicteric sclera ENT: Nose and ears atraumatic Neck: No cervical lymphadenopathy, trachea midline, supple Cardiovascular: S1S2 reg, no murmur, no edema Lungs: CTA bilateral, no rhonchi, no rales, no accessory muscle use Ext: muscle strength 5 out of 5 in all 4 extremities grossly, no gross muscle atrophy, no contractures, Neuro: no gross focal neuro deficits Psych: Lethargic, oriented to person and place, not fully oriented to time Sepsis, possibly secondary to UTI, unable to rule out meningitis/encephalitis Acute metabolic encephalopathy Normocytic anemia Hypochloremic hyponatremia, suspect due to poor oral intake Chronic conditions: CAD, schizophrenia, Parkinson's, hypertension Based on my assessment of this patient, this patient meets a high complexity level of care. Patient has an acute diagnosis of sepsis thought to be related to UTI with concerns for meningitis that poses a threat to life or bodily function. Sepsis, possibly secondary to UTI, unable to rule out meningitis/encephalitis: Leukocytosis, tachycardia, fever, + source of infection. Continue Zosyn 3.375 g IV TID. NS 75 cc/hr. UCx. BCx. Consider LP if patient does not show improvement. Telemetry monitoring. ID consult. Acute metabolic encephalopathy: As above. Normocytic anemia: Stable. Transfuse if Hg < 7. Hypochloremic hyponatremia, suspect due to poor oral intake: IV hydration as above. CODE STATUS: FULL CODE DVT Prophylaxis: Lovenox SQ GI Prophylaxis: Protonix PO Designated medical POA if patient is not able to make medical decisions for themselves: I have reviewed the following admissions consultant notes: I have reviewed the results of the following tests: CBC, BMP I have ordered the following tests: CBC, BMP I have discussed the care of this patient with the following independent historian: Discussed with RN. I have independently interpreted the following test below: I have discussed the management of this patient with the following physician: Objective - Vital Signs Vital signs: Vital Signs Temp 98.7 F 06/15/23 09:13 Pulse 62 06/15/23 07:00 Resp 15 06/15/23 07:00 BP 146/78 06/15/23 07:00 Pulse Ox 96 06/15/23 07:00 FiO2 Intake & Output 06/14/23 06/15/23 06/15/23 18:59 06:59 18:59 Weight 91.626 kg 91.626 kg Other: Voiding Method Diaper Diaper Incontinent Incontinent # Voids 2 - Labs CBC & Chem 7: 06/15/23 05:05 06/15/23 05:05 Labs: Abnormal Lab Results - Last 24 Hours (Table) 06/14/23 06/14/23 06/15/23 Range/Units 17:03 17:03 05:05 WBC 13.5 H 13.5 H (3.8-10.6) k/uL Hgb 11.7 L 12.1 L (13.0-17.5) gm/dL Hct 35.6 L 38.5 L (39.0-53.0) % RDW 16.9 H 17.0 H (11.5-15.5) % Neutrophils # 11.7 H (1.3-7.7) k/uL Lymphocytes # 0.5 L (1.0-4.8) k/uL Sodium 127 L (137-145) mmol/L Chloride 96 L (98-107) mmol/L Carbon Dioxide (22-30) mmol/L Glucose 106 H (74-99) mg/dL Calcium (8.4-10.2) mg/dL AST 16 L (17-59) U/L Total Protein 6.0 L (6.3-8.2) g/dL Urine Protein (Negative) Urine Blood (Negative) Ur Leukocyte Esterase (Negative) Urine RBC (0-5) /hpf Urine WBC (0-5) /hpf Urine Bacteria (None) /hpf Urine Mucus (None) /hpf 06/15/23 06/15/23 Range/Units 05:05 05:47 WBC (3.8-10.6) k/uL Hgb (13.0-17.5) gm/dL Hct (39.0-53.0) % RDW (11.5-15.5) % Neutrophils # (1.3-7.7) k/uL Lymphocytes # (1.0-4.8) k/uL Sodium 131 L (137-145) mmol/L Chloride (98-107) mmol/L Carbon Dioxide 21 L (22-30) mmol/L Glucose (74-99) mg/dL Calcium 8.2 L (8.4-10.2) mg/dL AST (17-59) U/L Total Protein (6.3-8.2) g/dL Urine Protein Trace H (Negative) Urine Blood Moderate H (Negative) Ur Leukocyte Esterase Large H (Negative) Urine RBC 11 H (0-5) /hpf Urine WBC >182 H (0-5) /hpf Urine Bacteria Rare H (None) /hpf Urine Mucus Rare H (None) /hpf
[2023-06-15] MEDS: ATORVASTATIN 80 MG TAB PO SCH (20:39)
[2023-06-15] MEDS: TAMSULOSIN 0.4 MG CAP.ER.24H PO SCH (20:39)
[2023-06-16] MEDS: ACETAMINOPHEN TAB 325 MG TAB PO PRN (01:23)
[2023-06-16] MEDS: PIPERACILLIN-TAZOBACTAM 3.375 GM in SODIUM CHLORIDE 0.9% 100 ML IVPB SCH ×2 (05:16→12:17)
[2023-06-16 05:55] LABS: African American GFR (CKD) >90 (>60 ml/min/1.73 sqM); Non-African American GFR(CKD) >90 (>60 ml/min/1.73 sqM)
[2023-06-16] MEDS: PANTOPRAZOLE 40 MG TABLET PO SCH (06:06)
--- NOTE | 2023-06-16 08:39 | P.CONS ---
History of Present Illness - Reason for Consult Consult date: 06/15/23 Sepsis Requesting physician: Benton Magana - Chief Complaint Weakness x few days - History of Present Illness Patient is a 67-year-old male with a past medical history significant for hypertension did have history of kidney cancer Parkinson disease coronary artery disease, patient presenting to the hospital last evening for evaluation of increasing weakness patient denies having any URI symptoms did have mild headache but no photophobia patient denies having any chest pain shortness of breath or cough no nausea vomiting abdominal pain no diarrhea did have some vague urinary symptoms patient on presentation to the hospital did have a fever of 102 F patient was not tachycardic hypotensive or hypoxic did have a white count of 13.5 with a left shift kidney function was normal neuroexams are normal urine is positive influenza RSV and COVID testing has been negative patient did have a CT of the brain that was negative for any bleed chest x-ray no acute card iopulmonary disease the patient was started on vancomycin and Zosyn and acyclovir infectious disease was consulted for further management of antibiotic therapy, patient is aware that he is at [facility] did have a mild headache Review of Systems Positive point and negatives has been mentioned in the HPI, complete review of systems was performed and all other systems are negative Past Medical History Past Medical History: Hypertension Additional Past Medical History / Comment(s): renal CA with surgery parkinson History of Any Multi-Drug Resistant Organisms: Unobtainable Past Surgical History: Heart Catheterization With Stent, Orthopedic Surgery Additional Past Surgical History / Comment(s): cryoablation for renal CA, Heart Catheterization 04/23/2021, Past Anesthesia/Blood Transfusion Reactions: No Reported Reaction Date of Last Stent Placement:: 04/23/21 Type of Cardiac Device: Biventricular Pacemaker, Unknown Device Placement Date:: unknown Past Psychological History: Schizophrenia Additional Psychological History / Comment(s): patient resides alone at [facility] Smoking Status: Never smoker Past Alcohol Use History: None Reported Past Drug Use History: None Reported - Past Family History Family Family Medical History: No Reported History Medications and Allergies Home Medications Medication Instructions Recorded Confirmed Type Omeprazole 40 mg PO DAILY@0700 12/09/20 06/14/23 History Aspirin 81 mg PO DAILY 07/28/21 06/14/23 History Metoprolol Tartrate [Lopressor] 25 mg PO BID 07/28/21 06/14/23 History cloZAPine [Clozaril] 300 mg PO HS@1930 02/03/22 06/14/23 History Atorvastatin [Lipitor] 80 mg PO HS 07/04/22 06/14/23 History Clopidogrel [Plavix] 75 mg PO DAILY 07/04/22 06/14/23 History cloZAPine [Clozaril] 200 mg PO BID@0700,1430 07/04/22 06/14/23 History clonazePAM [KlonoPIN] 0.5 mg PO BID 11/11/22 06/14/23 History Carbidopa-Levodopa 25-100 mg 1 tab PO QID 05/31/23 06/14/23 History [Sinemet 25-100] DULoxetine HCL [Cymbalta] 60 mg PO DAILY 05/31/23 06/14/23 History Tamsulosin [Flomax] 0.4 mg PO HS@1930 05/31/23 06/14/23 History Sennosides/Docusate Sodium [Senna 2 tab PO DAILY PRN 06/14/23 06/14/23 History Plus 8.6-50 mg Tablet] Allergies Allergy/AdvReac Type Severity Reaction Status Date / Time No Known Allergies Allergy Verified 06/14/23 19:03 Physical Exam Vitals: Vital Signs Temp Pulse Pulse Resp BP BP Pulse Ox 06/15/23 09:13 98.7 F 06/15/23 09:05 97.5 F L 06/15/23 07:00 101.5 F H 62 15 146/78 96 06/15/23 02:00 98.8 F 69 17 127/73 97 06/14/23 21:58 99.8 F H 88 17 127/75 97 06/14/23 21:18 101.8 F H 89 20 147/86 98 06/14/23 19:15 102 F H 90 20 145/77 99 06/14/23 18:00 80 17 132/69 98 06/14/23 17:30 18 130/73 99 06/14/23 17:00 74 16 117/67 98 06/14/23 16:45 71 14 119/68 97 06/14/23 16:25 98.0 F 82 18 89/59 98 Intake and Output 06/14/23 06/15/23 06/15/23 22:59 06:59 14:59 Other: Voiding Method Diaper Incontinent # Voids 2 Weight 91.626 kg GENERAL DESCRIPTION: Elderly male lying in bed, no distress. No tachypnea or accessory muscle of respiration use. HEENT: Shows Pallor , no scleral icterus. Oral mucous membrane is dry. No p haryngeal erythema or thrush NECK: Trachea central, no thyromegaly. LUNGS: Unlabored breathing. Clear to auscultation anteriorly. No wheeze or crackle. HEART: S1, S2, regular rate and rhythm. No loud murmur ABDOMEN: Soft, no tenderness , guarding or rigidity, no organomegaly EXTREMITIES: No edema of feet. SKIN: No rash, no masses palpable. NEUROLOGICAL: The patient is sleepy but arousable, oriented x3, mood and affect normal. No neck rigidity Results CBC & Chem 7: 06/15/23 05:05 06/16/23 05:15 Labs: Abnormal Lab Results - Last 24 Hours (Table) 06/14/23 06/14/23 06/15/23 Range/Units 17:03 17:03 05:05 WBC 13.5 H 13.5 H (3.8-10.6) k/uL Hgb 11.7 L 12.1 L (13.0-17.5) gm/dL Hct 35.6 L 38.5 L (39.0-53.0) % RDW 16.9 H 17.0 H (11.5-15.5) % Neutrophils # 11.7 H (1.3-7.7) k/uL Lymphocytes # 0.5 L (1.0-4.8) k/uL Sodium 127 L (137-145) mmol/L Chloride 96 L (98-107) mmol/L Carbon Dioxide (22-30) mmol/L Glucose 106 H (74-99) mg/dL Calcium (8.4-10.2) mg/dL AST 16 L (17-59) U/L Total Protein 6.0 L (6.3-8.2) g/dL Urine Protein (Negative) Urine Blood (Negative) Ur Leukocyte Esterase (Negative) Urine RBC (0-5) /hpf Urine WBC (0-5) /hpf Urine Bacteria (None) /hpf Urine Mucus (None) /hpf 06/15/23 06/15/23 Range/Units 05:05 05:47 WBC (3.8-10.6) k/uL Hgb (13.0-17.5) gm/dL Hct (39.0-53.0) % RDW (11.5-15.5) % Neutrophils # (1.3-7.7) k/uL Lymphocytes # (1.0-4.8) k/uL Sodium 131 L (137-145) mmol/L Chloride (98-107) mmol/L Carbon Dioxide 21 L (22-30) mmol/L Glucose (74-99) mg/dL Calcium 8.2 L (8.4-10.2) mg/dL AST (17-59) U/L Total Protein (6.3-8.2) g/dL Urine Protein Trace H (Negative) Urine Blood Moderate H (Negative) Ur Leukocyte Esterase Large H (Negative) Urine RBC 11 H (0-5) /hpf Urine WBC >182 H (0-5) /hpf Urine Bacteria Rare H (None) /hpf Urine Mucus Rare H (None) /hpf Assessment and Plan (1) Sepsis Current Visit: No Status: Acute Code(s): A41.9 - SEPSIS, UNSPECIFIED ORGANISM SNOMED Code(s): 06001379 (2) UTI (urinary tract infection) Current Visit: No Status: Acute Priority: Medium Code(s): N39.0 - URINARY TRACT INFECTION, SITE NOT SPECIFIED SNOMED Code(s): 76209951 Plan: 1patient with sepsis in this patient with a fever and elevated white count source likely urinary, in this patient presented to the hospital weakness and elevated white count which is likely related to the acute urinary tract infectio n likely from enteric gram-negative pathogen, clinically doubt encephalitis or meningitis patient is awake alert oriented x 3 he knows that he is in the [facility] did have mild headache but no photophobia and no neck rigidity, patient chest x-ray was clear abdomen is soft on clinical Examination and no evidence of any joint swelling or cellulitis 2-discontinue acyclovir and vancomycin 3-continue with Zosyn while waiting for the culture to finalize We will follow on clinical condition and cultures to further adjust medication if needed Thank you for this consultation we will follow the patient along with you Dictation was produced using [employer] software. please excuse any grammatical, word or spelling errors. Time with Patient: Greater than 30
[2023-06-16] MEDS: CARBIDOPA-LEVODOPA 25-100 MG 1 EACH TAB PO SCH ×4 (09:41→20:49)
[2023-06-16] MEDS: DULoxetine HCL 60 MG CAPSULE.DR PO SCH (09:41)
[2023-06-16] MEDS: ENOXAPARIN 40 MG/0.4 ML SYRINGE SQ SCH (09:41)
[2023-06-16] MEDS: METOPROLOL TARTRATE 25 MG TAB PO SCH ×2 (09:41→20:49)
[2023-06-16] MEDS: ASPIRIN 81 MG PO SCH (09:41)
[2023-06-16] MEDS: clonazePAM 0.5 MG TAB PO SCH ×2 (09:41→20:49)
[2023-06-16] MEDS: CLOPIDOGREL 75 MG TAB PO SCH (09:58)
--- NOTE | 2023-06-16 10:31 | P.PN ---
Subjective Progress Note Date: 06/16/23 Patient is a 67-year-old male with a PMH of CAD status post stenting, schizophrenia, Parkinson's, hypertension, and renal cancer status post cryoablation surgery, resident of [facility] who was brought to the emergency room for gradually worsening weakness. The patient reports that he hasn't been feeling well for several days now and that he had been getting increasingly weak. He also reported chills during this time. He further states experiencing neck pain with a mild headache which he reports are chronic. He was somewhat slow to respond and lethargic at the time of interview. Denied cough, dysuria, headaches, visual disturbances, or neck pain. In the emergency room a CT brain was unremarkable chest x-ray also unremarkable, and EKG showing sinus rhythm at [address]/T-wave changes noted. Laboratory evaluation was remarkable for leukocytosis of 13.5, sodium 127, chloride 96, glucose 106, with UA somewhat consistent with UTI. The patient had a T-max of 102F in the emergency room. 06/15 Patient was seen and examined. CBC WBC 13.5 Hg 12.5. BMP Na 131, bicarb 21, Ca 8.2. 06/16 Patient was seen and examined. Mentation significantly improved. Caregiver at bedside. Reports tremors are due to Parkinson's which is at baseline. She also reports baseline urinary incontinence. He reports feeling better. ID note reviewed, less likely meningitis, will hold off LP for now. Renal function within normal limits. Vital signs reviewed General: non toxic, no distress, appears at stated age, normal weight Derm: no unusual rashes/lesions, warm Head: atraumatic, normocephalic, symmetric Eyes: EOMI, no lid lag, anicteric sclera ENT: Nose and ears atraumatic Neck: No cervical lymphadenopathy, trachea midline, supple Cardiovascular: S1S2 reg, no murmur, no edema Lungs: CTA bilateral, no rhonchi, no rales, no accessory muscle use Ext: muscle strength 5 out of 5 in all 4 extremities grossly, no gross muscle atrophy, no contractures, Neuro: no gross focal neuro deficits, resting tremors Psych: Oriented to person and place, not fully oriented to time Sepsis, possibly secondary to UTI, unable to rule out meningitis/encephalitis Acute metabolic encephalopathy Normocytic anemia Hypochloremic hyponatremia, suspect due to poor oral intake Chronic conditions: CAD, schizophrenia, Parkinson's, hypertension Based on my assessment of this patient, this patient meets a moderate complexity level of care. Patient has an acute diagnosis of sepsis thought to be related to UTI with concerns for meningitis that poses a threat to life or bodily function. Sepsis, possibly secondary to UTI: Leukocytosis, tachycardia, fever, + source of infection. Continue Zosyn 3.375 g IV TID. NS 75 cc/hr. UCx. BCx. Consider LP if patient does not show improvement. Telemetry monitoring. ID on board. Acute metabolic encephalopathy: As above. Normocytic anemia: Stable. Transfuse if Hg < 7. Hypochloremic hyponatremia, suspect due to poor oral intake: IV hydration as ab ove. CODE STATUS: FULL CODE DVT Prophylaxis: Lovenox SQ GI Prophylaxis: Protonix PO Designated medical POA if patient is not able to make medical decisions for themselves: I have reviewed the following clinical services consultant notes: I have reviewed the results of the following tests: Renal function I have ordered the following tests: CBC, BMP I have discussed the care of this patient with the following independent historian: Discussed with tire care manager, RN. I have independently interpreted the following test below: I have discussed the management of this patient with the following physician: Objective - Vital Signs Vital signs: Vital Signs Temp 99.4 F 06/16/23 06:57 Pulse 70 06/16/23 06:57 Resp 14 06/16/23 06:57 BP 137/81 06/16/23 06:57 Pulse Ox 96 06/16/23 06:57 FiO2 Intake & Output 06/15/23 06/16/23 06/16/23 18:59 06:59 18:59 Intake Total 1080 Output Total 200 Balance 880 Intake: Oral 1080 Output: Urine 200 Other: Voiding Method Diaper Diaper Incontinent Incontinent # Voids 1 1 - Labs CBC & Chem 7: 06/15/23 05:05 06/16/23 05:15
[2023-06-16] MEDS: SODIUM CHLORIDE 0.9% 1,000 ML IV SCH (12:17)
--- NOTE | 2023-06-16 14:38 | P.PN ---
Subjective Progress Note Date: 06/16/23 Principal diagnosis: Reason for follow-up with sepsis UTI and bacteremia Patient is a 67-year-old male with a past medical history significant for hypertension did have history of kidney cancer Parkinson disease coronary artery disease, patient presenting to the hospital for evaluation of increasing weakness, patient did have a fever positive UA concerning for urinary tract infection. On today's evaluation that is 06/16/2023, the patient continues to be afebrile, the patient is breathing comfortably on room air without the need for supplemental oxygen, the patient denies shortness of breath chest pain and no significant cough , patient denies nausea/vomiting, no abdominal pain and no diarrhea Patient did have a creatinine 0.75, no CBC was done today blood culture with gram-negative bacilli Objective - Vital Signs Vital signs: Vital Signs Temp 99.4 F 06/16/23 06:57 Pulse 70 06/16/23 06:57 Resp 14 06/16/23 06:57 BP 137/81 06/16/23 06:57 Pulse Ox 96 06/16/23 06:57 FiO2 Intake & Output 06/15/23 06/16/23 06/16/23 18:59 06:59 18:59 Intake Total 1080 Output Total 200 Balance 880 Intake: Oral 1080 Output: Urine 200 Other: Voiding Method Diaper Diaper Incontinent Incontinent # Voids 1 1 - Exam GENERAL DESCRIPTION: An elderly male lying in bed in no distress RESPIRATORY SYSTEM: Unlabored breathing , clear to auscultation anteriorly HEART: S1 S2 regular rate and rhythm , ABDOMEN: Soft , no tenderness EXTREMITIES: No edema feet - Labs CBC & Chem 7: 06/15/23 05:05 06/16/23 05:15 Labs: Microbiology - Last 24 Hours (Table) 06/14/23 21:02 Blood Culture Gram Stain - Preliminary Blood Assessment and Plan (1) E. coli bacteremia Current Visit: Yes Status: Acute Code(s): R78.81 - BACTEREMIA; B96.20 - UNSP ESCHERICHIA COLI THE CAUSE OF DISEASES [facility] SNOMED Code(s): 336818178859 (2) UTI (urinary tract infection) Current Visit: No Status: Acute Priority: Medium Code(s): N39.0 - URINARY TRACT INFECTION, SITE NOT SPECIFIED SNOMED Code(s): 13851449 Plan: 1patient with sepsis in this patient with a fever and elevated white count source likely urinary, now with evidence of gram-negative bacteremia due to E. coli likely related to the urinary tract 2we will obtain ultrasound of the kidney bladder to make sure that evidence of any structural abnormality 3discontinue Zosyn 4start the patient Rocephin 2 g daily Sister. who is the legal guardian at the bedside multiple questions were answered Dictation was produced using [employer] dictation software. please excuse any grammatical, word or spelling errors. Time with Patient: Less than 30
[2023-06-16] MEDS: TAMSULOSIN 0.4 MG CAP.ER.24H PO SCH (16:51)
[2023-06-16] MEDS: ATORVASTATIN 80 MG TAB PO SCH (20:49)
[2023-06-17] MEDS: SODIUM CHLORIDE 0.9% 1,000 ML IV SCH ×2 (02:43→12:15)
[2023-06-17 05:50] LABS: African American GFR (CKD) >90 (>60 ml/min/1.73 sqM); Anion Gap 6 mmol/L; Blood Urea Nitrogen 6 mg/dL (9-20); Calcium 7.9 mg/dL (8.4-10.2); Carbon Dioxide 24 mmol/L (22-30); Chloride 100 mmol/L (98-107); Glucose 90 mg/dL (74-99); Non-African American GFR(CKD) >90 (>60 ml/min/1.73 sqM); Potassium 3.4 mmol/L (3.5-5.1); Sodium 130 mmol/L (137-145)
[2023-06-17 06:18] LABS: Anisocytosis Slight; HCT 30.4 % (39.0-53.0); HGB 10.1 gm/dL (13.0-17.5); MCH 27.2 pg (25.0-35.0); MCHC 33.1 g/dL (31.0-37.0); MCV 82.2 fL (80.0-100.0); Mean Platelet Volume 8.4; Platelet Count 240 k/uL (150-450); RDW 17.2 % (11.5-15.5)
[2023-06-17] MEDS: PANTOPRAZOLE 40 MG TABLET PO SCH (06:26)
[2023-06-17] MEDS: ACETAMINOPHEN TAB 325 MG TAB PO PRN (06:27)
--- NOTE | 2023-06-17 08:26 | US ---
EXAMINATION TYPE: US kidneys/renal and bladder DATE OF EXAM: 06/17/2023 COMPARISON: CT 07/04/2022 CLINICAL INDICATION: Male, 67 years old with history of uti and bacteremia; UTI EXAM MEASUREMENTS: Right Kidney: 12.6x4.7x5.1 cm Left Kidney: 12.9x6.7x6.8 cm Right Kidney: No hydronephrosis or masses seen Left Kidney: No hydronephrosis or masses seen Bladder: Markedly trabeculated bladder wall with numerous small bladder wall diverticula along the po sterior wall Bilateral Jets seen: Yes Steel Erector Apprentice notes: Exam slightly limited by bowel, body habitus, and patient cooperation IMPRESSION: 1. Exam limitations as above. No evident hydronephrosis. 2. Markedly trabeculated and thickened bladder wall with numerous small bladder wall diverticula. Fin dings suggest chronic bladder outlet obstruction. Clinically correlate.
[2023-06-17] MEDS: CARBIDOPA-LEVODOPA 25-100 MG 1 EACH TAB PO SCH ×4 (09:36→21:25)
[2023-06-17] MEDS ORDERED: POTASSIUM CHLORIDE ER 20 MEQ TAB.ER PO STA (09:36)
[2023-06-17] MEDS: ASPIRIN 81 MG PO SCH (09:36)
[2023-06-17] MEDS: METOPROLOL TARTRATE 25 MG TAB PO SCH ×2 (09:36→21:25)
[2023-06-17] MEDS: clonazePAM 0.5 MG TAB PO SCH ×2 (09:37→21:25)
[2023-06-17] MEDS: CLOPIDOGREL 75 MG TAB PO SCH (09:37)
[2023-06-17] MEDS: DULoxetine HCL 60 MG CAPSULE.DR PO SCH (09:37)
[2023-06-17] MEDS: ENOXAPARIN 40 MG/0.4 ML SYRINGE SQ SCH (09:37)
--- NOTE | 2023-06-17 15:29 | P.PN ---
Subjective Progress Note Date: 06/17/23 Patient is a 67-year-old male with a PMH of CAD status post stenting, schizophrenia, Parkinson's, hypertension, and renal cancer status post cryoablation surgery, resident of [facility] who was brought to the emergency room for gradually worsening weakness. The patient reports that he hasn't been feeling well for several days now and that he had been getting increasingly weak. He also reported chills during this time. He further states experiencing neck pain with a mild headache which he reports are chronic. He was somewhat slow to respond and lethargic at the time of interview. Denied cough, dysuria, headaches, visual disturbances, or neck pain. In the emergency room a CT brain was unremarkable chest x-ray also unremarkable, and EKG showing sinus rhythm at [address]/T-wave changes noted. Laboratory evaluation was remarkable for leukocytosis of 13.5, sodium 127, chloride 96, glucose 106, with UA somewhat consistent with UTI. The patient had a T-max of 102F in the emergency room. 06/15 Patient was seen and examined. CBC WBC 13.5 Hg 12.5. BMP Na 131, bicarb 21, Ca 8.2. 06/16 Patient was seen and examined. Mentation significantly improved. Caregiver at bedside. Reports tremors are due to Parkinson's which is at baseline. She also reports baseline urinary incontinence. He reports feeling better. ID note reviewed, less likely meningitis, will hold off LP for now. Renal function within normal limits. 06/17 Patient was seen and examined. Clinically doing well. BCx + E. coli. Currently on Zosyn. CBC Hg 10.1. BMP Na 130, K 3.4, BUN 6, Ca 7.9. Sister updated on the condition of the patient. Vital signs reviewed General: non toxic, no distress, appears at stated age, normal weight Derm: no unusual rashes/lesions, warm Head: atraumatic, normocephalic, symmetric Eyes: EOMI, no lid lag, anicteric sclera ENT: Nose and ears atraumatic Neck: No cervical lymphadenopathy, trachea midline, supple Cardiovascular: S1S2 reg, no murmur, no edema Lungs: CTA bilateral, no rhonchi, no rales, no accessory muscle use Ext: muscle strength 5 out of 5 in all 4 extremities grossly, no gross muscle atrophy, no contractures, Neuro: no gross focal neuro deficits, resting tremors Psych: Oriented to person and place, not fully oriented to time Based on my assessment of this patient, this patient meets a moderate complexity level of care. Patient has an acute diagnosis of sepsis thought to be related to UTI that poses a threat to life or bodily function. Blood culture + E. coli. E. coli bacteremia with sepsis secondary to UTI: Zosyn 3.375 g IV TID (06/15- 06/16). Switched to Rocephin 2g IV QD 06/16. Repeat BCx. NS 75 cc/hr. UCx. Telemetry monitoring. ID on board. Hypokalemia: Replace. Acute metabolic encephalopathy: As above. Normocytic anemia: Stable. Transfuse if Hg < 7. Hypochloremic hyponatremia, suspect due to poor oral intake: IV hydration as above. Chronic conditions: CAD, schizophrenia, Parkinson's, hypertension CODE STATUS: FULL CODE DVT Prophylaxis: Lovenox SQ GI Prophylaxis: Protonix PO Designated medical POA if patient is not able to make medical decisions for themselves: Sister I have reviewed the following sales and leasing consultant notes: ID note I have reviewed the results of the following tests: CBC, BMP, BCx I have ordered the following tests: BCx I have discussed the care of this patient with the following independent his jonathon: Discussed with sister. I have independently interpreted the following test below: I have discussed the management of this patient with the following physician: Discussed with Dr. Camarillo. Objective - Vital Signs Vital signs: Vital Signs Temp 98.3 F 06/17/23 07:27 Pulse 60 06/17/23 07:27 Resp 17 06/17/23 07:27 BP 127/82 06/17/23 07:27 Pulse Ox 96 06/17/23 07:27 FiO2 Intake & Output 06/16/23 06/17/23 06/17/23 18:59 06:59 18:59 Intake Total 650 Output Total 710 Balance 650 -710 Intake: Intake, IV Titration 650 Amount Sodium Chloride 0.9% 1, 600 000 ml @ 75 mls/hr IV . [id number] [facility] Rx#:[id number] cefTRIAXone 2 gm In 50 Sodium Chloride 0.9% 50 ml @ 100 mls/hr IVPB Q24HR [facility] Rx#:[id number] Output: Urine 710 Other: Voiding Method Diaper Incontinent # Voids 1 - Labs CBC & Chem 7: 06/17/23 04:57 06/17/23 04:57 Labs: Abnormal Lab Results - Last 24 Hours (Table) 06/17/23 06/17/23 Range/Units 04:57 04:57 RBC 3.70 L (4.30-5.90) m/uL Hgb 10.1 L (13.0-17.5) gm/dL Hct 30.4 L (39.0-53.0) % RDW 17.2 H (11.5-15.5) % Sodium 130 L (137-145) mmol/L Potassium 3.4 L (3.5-5.1) mmol/L BUN 6 L (9-20) mg/dL Calcium 7.9 L (8.4-10.2) mg/dL Microbiology - Last 24 Hours (Table) 06/14/23 21:02 Blood Culture Gram Stain - Preliminary Blood Blood Culture - Preliminary Gram Neg Bacilli
[2023-06-17] MEDS: TAMSULOSIN 0.4 MG CAP.ER.24H PO SCH (17:55)
[2023-06-17] MEDS: ATORVASTATIN 80 MG TAB PO SCH (21:25)
[2023-06-18] MEDS: SODIUM CHLORIDE 0.9% 1,000 ML IV SCH (05:31)
[2023-06-18] MEDS: PANTOPRAZOLE 40 MG TABLET PO SCH (06:44)
[2023-06-18] MEDS: CLOPIDOGREL 75 MG TAB PO SCH (07:54)
[2023-06-18] MEDS: DULoxetine HCL 60 MG CAPSULE.DR PO SCH (07:54)
[2023-06-18] MEDS: ENOXAPARIN 40 MG/0.4 ML SYRINGE SQ SCH (07:54)
[2023-06-18] MEDS: ACETAMINOPHEN TAB 325 MG TAB PO PRN (07:55)
[2023-06-18] MEDS: clonazePAM 0.5 MG TAB PO SCH ×2 (07:55→20:00)
[2023-06-18] MEDS: METOPROLOL TARTRATE 25 MG TAB PO SCH ×2 (07:55→20:00)
[2023-06-18] MEDS: ASPIRIN 81 MG PO SCH (07:55)
[2023-06-18] MEDS: CARBIDOPA-LEVODOPA 25-100 MG 1 EACH TAB PO SCH ×4 (07:55→20:57)
[2023-06-18 10:10] LABS: Anisocytosis Slight; HGB 10.4 gm/dL (13.0-17.5); MCH 27.2 pg (25.0-35.0); MCHC 32.5 g/dL (31.0-37.0); MCV 83.7 fL (80.0-100.0); Mean Platelet Volume 7.5; Platelet Count 277 k/uL (150-450); RBC 3.82 m/uL (4.30-5.90); RDW 17.4 % (11.5-15.5); WBC 5.7 k/uL (3.8-10.6)
[2023-06-18 10:20] LABS: African American GFR (CKD) >90 (>60 ml/min/1.73 sqM); Anion Gap 7 mmol/L; Blood Urea Nitrogen 6 mg/dL (9-20); Calcium 8.2 mg/dL (8.4-10.2); Carbon Dioxide 27 mmol/L (22-30); Chloride 103 mmol/L (98-107); Glucose 99 mg/dL (74-99); Non-African American GFR(CKD) >90 (>60 ml/min/1.73 sqM); Potassium 3.9 mmol/L (3.5-5.1); Sodium 137 mmol/L (137-145)
--- NOTE | 2023-06-18 14:40 | P.PN ---
Subjective Progress Note Date: 06/17/23 Principal diagnosis: Reason for follow-up with sepsis UTI and bacteremia Patient is a 67-year-old male with a past medical history significant for hypertension did have history of kidney cancer Parkinson disease coronary artery disease, patient presenting to the hospital for evaluation of increasing weakness, patient did have a fever positive UA concerning for urinary tract infection. On today's evaluation that is 06/17/2023, the patient remains to be afebrile, the patient is breathing comfortably on room air and the patient denies any shortness of breath, the patient denies chest pain or any cough , patient denies abdominal pain, no nausea/vomiting and no diarrhea Patient white count is 8.0, creatinine 0.71, blood culture with gram-negative bacilli Objective - Vital Signs Vital signs: Vital Signs Temp 98.3 F 06/17/23 07:27 Pulse 60 06/17/23 07:27 Resp 17 06/17/23 07:27 BP 127/82 06/17/23 07:27 Pulse Ox 96 06/17/23 07:27 FiO2 Intake & Output 06/16/23 06/17/23 06/17/23 18:59 06:59 18:59 Intake Total 650 Output Total 710 Balance 650 -710 Intake: Intake, IV Titration 650 Amount Sodium Chloride 0.9% 1, 600 000 ml @ 75 mls/hr IV . [id number] [facility] Rx#:[id number] cefTRIAXone 2 gm In 50 Sodium Chloride 0.9% 50 ml @ 100 mls/hr IVPB Q24HR [facility] Rx#:[id number] Output: Urine 710 Other: Voiding Method Diaper Incontinent # Voids 1 - Exam GENERAL DESCRIPTION: An elderly male lying in bed in no distress RESPIRATORY SYSTEM: Unlabored breathing , clear to auscultation anteriorly HEART: S1 S2 regular rate and rhythm , ABDOMEN: Soft , no tenderness EXTREMITIES: No edema feet - Labs CBC & Chem 7: 06/18/23 09:30 06/18/23 09:30 Labs: Abnormal Lab Results - Last 24 Hours (Table) 06/17/23 06/17/23 Range/Units 04:57 04:57 RBC 3.70 L (4.30-5.90) m/uL Hgb 10.1 L (13.0-17.5) gm/dL Hct 30.4 L (39.0-53.0) % RDW 17.2 H (11.5-15.5) % Sodium 130 L (137-145) mmol/L Potassium 3.4 L (3.5-5.1) mmol/L BUN 6 L (9-20) mg/dL Calcium 7.9 L (8.4-10.2) mg/dL Microbiology - Last 24 Hours (Table) 06/14/23 21:02 Blood Culture Gram Stain - Preliminary Blood Blood Culture - Preliminary Gram Neg Bacilli Assessment and Plan (1) E. coli bacteremia Current Visit: Yes Status: Acute Code(s): R78.81 - BACTEREMIA; B96.20 - UNSP ESCHERICHIA COLI THE CAUSE OF DISEASES CLASSD [facility] SNOMED Code(s): 505437809025 (2) UTI (urinary tract infection) Current Visit: No Status: Acute Priority: Medium Code(s): N39.0 - URINARY TRACT INFECTION, SITE NOT SPECIFIED SNOMED Code(s): 32915406 Plan: 1patient with sepsis in this patient with a fever and elevated white count source likely urinary, now with evidence of gram-negative bacteremia due to E. coli likely related to the urinary tract 2ultrasound of the kidney bladder no hydronephrosis markedly trabeculated and thickened bladder wall 3patient to continue with Rocephin 2 g daily while waiting for sensitivities finalize Dictation was produced using [employer] dictation software. please excuse any grammatical, word or spelling errors. Time with Patient: Less than 30
--- NOTE | 2023-06-18 14:41 | P.PN ---
Subjective Progress Note Date: 06/18/23 Principal diagnosis: Reason for follow-up with sepsis UTI and bacteremia Patient is a 67-year-old male with a past medical history significant for hypertension did have history of kidney cancer Parkinson disease coronary artery disease, patient presenting to the hospital for evaluation of increasing weakness, patient did have a fever positive UA concerning for urinary tract infection. On today's evaluation that is 06/18/2023, the patient continues to be afebrile, the patient is breathing comfortably on room air and the patient denies chest pain shortness of breath or cough , patient denies nausea/vomiting , no abdominal pain and no diarrhea Patient white count is 5.7, creatinine 0.70, blood culture with E. coli that is sensitive to ceftriaxone Objective - Vital Signs Vital signs: Vital Signs Temp 97.6 F 06/18/23 07:07 Pulse 58 L 06/18/23 07:54 Resp 17 06/18/23 07:54 BP 134/83 06/18/23 07:07 Pulse Ox 97 06/18/23 07:07 FiO2 Intake & Output 06/17/23 06/18/23 06/18/23 18:59 06:59 18:59 Intake Total 650 Output Total 275 400 Balance 650 -275 -400 Intake: Intake, IV Titration 650 Amount Sodium Chloride 0.9% 1, 600 000 ml @ 75 mls/hr IV . [id number] [facility] Rx#:[id number] cefTRIAXone 2 gm In 50 Sodium Chloride 0.9% 50 ml @ 100 mls/hr IVPB Q24HR [facility] Rx#:[id number] Output: Urine 275 400 Other: Voiding Method Diaper Incontinent # Voids 5 4 1 - Exam GENERAL DESCRIPTION: An elderly male lying in bed in no distress RESPIRATORY SYSTEM: Unlabored breathing , clear to auscultation anteriorly HEART: S1 S2 regular rate and rhythm , ABDOMEN: Soft , no tenderness EXTREMITIES: No edema feet - Labs CBC & Chem 7: 06/18/23 09:30 06/18/23 09:30 Labs: Abnormal Lab Results - Last 24 Hours (Table) 06/18/23 06/18/23 Range/Units 09:30 09:30 RBC 3.82 L (4.30-5.90) m/uL Hgb 10.4 L (13.0-17.5) gm/dL Hct 32.0 L (39.0-53.0) % RDW 17.4 H (11.5-15.5) % BUN 6 L (9-20) mg/dL Calcium 8.2 L (8.4-10.2) mg/dL Microbiology - Last 24 Hours (Table) 06/14/23 21:02 Blood Culture Gram Stain - Final Blood Blood Culture - Final Escherichia coli 06/16/23 21:19 Urine Culture - Final Urine,Voided Assessment and Plan (1) E. coli bacteremia Current Visit: Yes Status: Acute Code(s): R78.81 - BACTEREMIA; B96.20 - UNSP ESCHERICHIA COLI THE CAUSE OF DISEASES CLASSD [facility] SNOMED Code(s): 235616119975 (2) UTI (urinary tract infection) Current Visit: No Status: Acute Priority: Medium Code(s): N39.0 - URINARY TRACT INFECTION, SITE NOT SPECIFIED SNOMED Code(s): 50472174 Plan: 1patient with sepsis in this patient with a fever and elevated white count source likely urinary, now with evidence of gram-negative bacteremia due to E. coli likely related to the urinary tract 2ultrasound of the kidney bladder no hydronephrosis markedly trabeculated and thickened bladder wall 3patient to continue with Rocephin 2 g daily with a plan to finish therapy with oral Ceftin Dictation was produced using [employer] dictation software. please excuse any grammatical, word or spelling errors. Time with Patient: Less than 30
--- NOTE | 2023-06-18 18:24 | P.PN ---
Subjective Progress Note Date: 06/18/23 (delayed charting seen at 1115) Patient is a 67-year-old male of known coronary artery disease, schizophrenia, Parkinson's disease, hypertension, and prior renal cancer who presented from his assisted living facility due to a gradually worsening weakness. In the emergency department he underwent an extensive evaluation. On arrival he was slightly hypotensive with a blood pressure of 89/59. Several hours after admission to the ER he spiked a fever of 102. She'll laboratory analysis was remarkable for white blood cell count 13.5, sodium 127. Initial testing had negative influenza A/B/RSV/COVID-19 PCR. Chest x-ray was negative. Urinalysis came back positive and patient was subsequently admitted for possible UTI versus encephalitis. Patient was started on Zosyn, vancomycin, and acyclovir. Infectious disease consulted IR consult were placed. Patient was seen by infectious disease and it was felt that his illness is likely secondary to urinary tract infection and not secondary to meningitis therefore acyclovir and vancomycin were discontinued. Number puncture was not pursued. Patient did come back with blood cultures positive for E. coli. He underwent a renal margarita dder ultrasound which showed no evidence of hydronephrosis but marked trabeculated and thickened bladder wall with numerous bladder wall diverticula suggesting chronic bladder outlet obstruction. Patient seen and examined at bedside. He is feeling much better than before. He continues eating and drinking better. He is unsure the services he has at [facility]. He denies any nausea, vomiting, or diarrhea. Vital signs reviewed General: nontoxic, no distress, appears at stated age Cardiovascular: S1S2 reg, no murmur, positive posterior tibial pulse bilateral, Lungs: CTA bilateral, no rhonchi, no rales , no accessory muscle use Abdominal: soft, nontender to palpation, no guarding, no appreciable organomegaly Ext: no gross muscle atrophy, no edema b/l lower extremities, no contractures Neuro: CN II-XI grossly intact, no focal neuro deficits Psych: Alert, oriented to self of being in the hospital, appropriate affect Assessment/Plan: E. coli urinary tract infection with bacteremia History of bladder cancer in the past Renal ultrasound consistent with chronic bladder outlet obstruction -Continue with Rocephin 2 g IV piggyback every 24 hours day #3 -Infectious disease recommendations: Continue with Rocephin and plan finish to course of oral Ceftin -Check post void residual Hyponatremia, resolved - stop IV fluids, encourage oral fluid intake -Repeat basic metabolic profile in the morning to ensure stability of sodium off of IV fluids Anemia, chronic - follow CBC - stable, transfused for Hgb < 7 Toxic metabolic encephalopathy, resolved History of renal cell cancer Parkinson's Coronary artery disease Imaging: None new Data Review: Labs reviewed from today include CBC and basic metabolic profile which are remarkable for hemoglobin 10.4 DVT prophylaxis: Lovenox Anticipated discharge date: in AM Anticipated discharge place: Return [facility] This dictation was prepared using [employer] voice recognition software. Though every attempt is made to correct errors during dictation some may still exist. Objective - Vital Signs Vital signs: Vital Signs Temp 97.5 F L 06/18/23 12:48 Pulse 59 L 06/18/23 12:48 Resp 16 06/18/23 12:48 BP 146/82 06/18/23 12:48 Pulse Ox 99 06/18/23 12:48 FiO2 Intake & Output 06/17/23 06/18/23 06/18/23 18:59 06:59 18:59 Intake Total 650 Output Total 275 400 Balance 650 -275 -400 Intake: Intake, IV Titration 650 Amount Sodium Chloride 0.9% 1, 600 000 ml @ 75 mls/hr IV . [id number] [facility] Rx#:[id number] cefTRIAXone 2 gm In 50 Sodium Chloride 0.9% 50 ml @ 100 mls/hr IVPB Q24HR [facility] Rx#:[id number] Output: Urine 275 400 Other: Voiding Method Diaper Incontinent # Voids 5 4 5 - Labs CBC & Chem 7: 06/18/23 09:30 06/18/23 09:30 Labs: Abnormal Lab Results - Last 24 Hours (Table) 06/18/23 06/18/23 Range/Units 09:30 09:30 RBC 3.82 L (4.30-5.90) m/uL Hgb 10.4 L (13.0-17.5) gm/dL Hct 32.0 L (39.0-53.0) % RDW 17.4 H (11.5-15.5) % BUN 6 L (9-20) mg/dL Calcium 8.2 L (8.4-10.2) mg/dL Microbiology - Last 24 Hours (Table) 11/19/23 21:02 Blood Culture Gram Stain - Final Blood Blood Culture - Final Escherichia coli 06/16/23 21:19 Urine Culture - Final Urine,Voided
[2023-06-18] MEDS: ATORVASTATIN 80 MG TAB PO SCH (20:00)
[2023-06-18] MEDS: TAMSULOSIN 0.4 MG CAP.ER.24H PO SCH (20:00)
[2023-06-19] MEDS: PANTOPRAZOLE 40 MG TABLET PO SCH (06:07)
[2023-06-19 08:51] VITALS: BP 124/72; PULSE 56; RESP 18; TEMP 97.4
[2023-06-19 09:20] LABS: Anisocytosis Slight; HCT 33.3 % (39.0-53.0); HGB 11.1 gm/dL (13.0-17.5); MCH 27.3 pg (25.0-35.0); MCHC 33.3 g/dL (31.0-37.0); MCV 82.2 fL (80.0-100.0); Mean Platelet Volume 8.3; Platelet Count 302 k/uL (150-450); RBC 4.05 m/uL (4.30-5.90); RDW 17.2 % (11.5-15.5); WBC 6.6 k/uL (3.8-10.6)
[2023-06-19 09:41] LABS: African American GFR (CKD) >90 (>60 ml/min/1.73 sqM); Anion Gap 10 mmol/L; Blood Urea Nitrogen 8 mg/dL (9-20); Calcium 8.4 mg/dL (8.4-10.2); Carbon Dioxide 24 mmol/L (22-30); Chloride 103 mmol/L (98-107); Glucose 78 mg/dL (74-99); Non-African American GFR(CKD) >90 (>60 ml/min/1.73 sqM); Sodium 137 mmol/L (137-145)
[2023-06-19 09:43] LABS: Potassium 4.4 mmol/L (3.5-5.1)
[2023-06-19] MEDS: DULoxetine HCL 60 MG CAPSULE.DR PO SCH (10:03)
[2023-06-19] MEDS: ENOXAPARIN 40 MG/0.4 ML SYRINGE SQ SCH (10:03)
[2023-06-19] MEDS: CARBIDOPA-LEVODOPA 25-100 MG 1 EACH TAB PO SCH ×2 (10:03→12:49)
[2023-06-19] MEDS: CLOPIDOGREL 75 MG TAB PO SCH (10:03)
[2023-06-19] MEDS: clonazePAM 0.5 MG TAB PO SCH (10:03)
[2023-06-19] MEDS: ASPIRIN 81 MG PO SCH (10:03)
[2023-06-19] MEDS: METOPROLOL TARTRATE 25 MG TAB PO SCH (10:03)
[2023-06-19 11:54] VITALS: BMI 26.6
--- NOTE | 2023-06-19 15:08 | P.DS ---
Providers Date of admission: 06/14/23 20:25 Expected date of discharge: 06/19/23 Attending physician: Benton Magana MD Consults: 06/15/23 02:59 Consult Physician Urgent Consulting Provider: Eddie Camarillo Consult Reason/Comments: sepsis Do you want consulting provider notified?: Yes Primary care physician: [facility] Hospital Course: Discharge Diagnosis: E. coli urinary tract infection with bacteremia History of bladder cancer in the past Renal ultrasound consistent with chronic bladder outlet obstruction Hyponatremia, resolved Anemia, chronic Toxic metabolic encephalopathy, resolved History of renal cell cancer Parkinson's Coronary artery disease Hospital Course: Patient is a 67-year-old male of known coronary artery disease, schizophrenia, Parkinson's disease, hypertension, and prior renal cancer who presented from his assisted living facility due to a gradually worsening weakness. In the emergency department he underwent an extensive evaluation. On arrival he was slightly hypotensive with a blood pressure of 89/59. Several hours after admission to the ER he spiked a fever of 102. She'll laboratory analysis was remarkable for white blood cell count 13.5, sodium 127. Initial testing had negative influenza A/B/RSV/COVID-19 PCR. Chest x-ray was negative. Urinalysis came back positive and patient was subsequently admitted for possible UTI versus encephalitis. Patient was started on Zosyn, vancomycin, and acyclovir. Infectious disease consulted IR consult were placed. Patient was seen by infectious disease and it was felt that his illness is likely secondary to urinary tract infection and not secondary to meningitis therefore acyclovir and vancomycin were discontinued. Number puncture was not pursued. Patient did come back with blood cultures positive for E. coli. He underwent a renal bladder ultrasound which showed no evidence of hydronephrosis but marked trabeculated and thickened bladder wall with numerous bladder wall diverticula suggesting chronic bladder outlet obstruction. He was not having any signs or symptoms of urinary retention. He was doing well and determined stable for discharge home. Follow-up:Follow-up with [facility]. He will resume his outpatient home care services with residential home health. He will complete Ceftin 100 mg oral twice daily for the next 10 days. Patient seen and examined at bedside. He is feeling much better. He jokes comfortable going home. He has no other complaints currently. Vital signs reviewed and stable. General: nontoxic, no distress, appears at stated age Cardiovascular: S1S2 reg, no murmur, positive posterior tibial pulse bilateral, Lungs: CTA bilateral, no rhonchi, no rales , no accessory muscle use Abdominal: soft, nontender to palpation, no guarding, no appreciable organomegaly Ext: no gross muscle atrophy, no edema b/l lower extremities, no contractures Neuro: CN II-XI grossly intact, no focal neuro deficits Psych: Alert, oriented, appropriate affect A total of 35 minutes of time were spent preparing this complex discharge summary. Patient was discharged on 06/19/23. This dictation was prepared using [employer] voice recognition software. Though every attempt is made to correct errors during dictation some may still exist. Patient Condition at Discharge: Fair Plan - Discharge Summary Discharge Rx Participant: Yes New Discharge Prescriptions: New Cefpodoxime Proxetil [Vantin] 100 mg PO Q12HR #20 tab Continue Omeprazole 40 mg PO DAILY@0700 Metoprolol Tartrate [Lopressor] 25 mg PO BID cloZAPine [Clozaril] 300 mg PO HS@1930 Carbidopa-Levodopa 25-100 mg [Sinemet 25-100 mg] 1 tab PO QID Sennosides/Docusate Sodium [Senna Plus 8.6-50 mg Tablet] 2 tab PO DAILY PRN PRN Reason: Constipation Aspirin 81 mg PO DAILY cloZAPine [Clozaril] 200 mg PO BID@0700,1430 Clopidogrel [Plavix] 75 mg PO DAILY Atorvastatin [Lipitor] 80 mg PO HS clonazePAM [KlonoPIN] 0.5 mg PO BID Tamsulosin [Flomax] 0.4 mg PO HS@1930 DULoxetine HCL [Cymbalta] 60 mg PO DAILY Discharge Medication List Omeprazole 40 mg PO DAILY@0700 12/09/20 [History] Aspirin 81 mg PO DAILY 07/28/21 [History] Metoprolol Tartrate [Lopressor] 25 mg PO BID 07/28/21 [History] cloZAPine [Clozaril] 300 mg PO HS@1930 02/03/22 [History] Atorvastatin [Lipitor] 80 mg PO HS 07/04/22 [History] Clopidogrel [Plavix] 75 mg PO DAILY 07/04/22 [History] cloZAPine [Clozaril] 200 mg PO BID@0700,1430 07/04/22 [History] clonazePAM [KlonoPIN] 0.5 mg PO BID 11/11/22 [History] Carbidopa-Levodopa 25-100 mg [Sinemet 25-100 mg] 1 tab PO QID 05/31/23 [History] DULoxetine HCL [Cymbalta] 60 mg PO DAILY 05/31/23 [History] Tamsulosin [Flomax] 0.4 mg PO HS@1930 05/31/23 [History] Sennosides/Docusate Sodium [Senna Plus 8.6-50 mg Tablet] 2 tab PO DAILY PRN 06/14/23 [History] Cefpodoxime Proxetil [Vantin] 100 mg PO Q12HR #20 tab 06/19/23 [Rx] Follow up Appointment(s)/Referral(s): Residential Home,Health [NON-STAFF] - As Needed [facility],Clinic [Primary Care Provider] - 1-2 days Activity/Diet/Wound Care/Special Instructions: Activity: As tolerated Diet: Heart Healthy Special Instructions: Complete all antibiotics. Discharge Disposition: HOME WITH HOME HEALTH SERVICES
--- NOTE | 2023-06-19 15:49 | P.PN ---
Subjective Progress Note Date: 06/19/23 Principal diagnosis: Reason for follow-up with sepsis UTI and bacteremia Patient is a 67-year-old male with a past medical history significant for hypertension did have history of kidney cancer Parkinson disease coronary artery disease, patient presenting to the hospital for evaluation of increasing weakness, patient did have a fever positive UA concerning for urinary tract infection. On today's evaluation that is 06/19/2023, the patient denies any fever or any chills, the patient is breathing comfortably on room air without the need for supplemental oxygen, patient denies chest pain shortness of breath and no significant cough or sputum production, patient denies Abdominal pain, no nausea/vomiting and denies having any diarrhea Patient white count is 6.6, creatinine 0.70, blood culture with E. coli that is sensitive to ceftriaxone Objective - Vital Signs Vital signs: Vital Signs Temp 97.4 F L 06/19/23 06:35 Pulse 56 L 06/19/23 06:35 Resp 18 06/19/23 06:35 BP 124/72 06/19/23 06:35 Pulse Ox 96 06/19/23 06:35 FiO2 Intake & Output 06/18/23 06/19/23 06/19/23 18:59 06:59 18:59 Output Total 400 Balance -400 Weight 91.626 kg Output: Urine 400 Other: Voiding Method Diaper Incontinent # Voids 5 1 1 # Bowel Movements 1 1 - Exam GENERAL DESCRIPTION: An elderly male lying in bed in no distress RESPIRATORY SYSTEM: Unlabored breathing , clear to auscultation anteriorly HEART: S1 S2 regular rate and rhythm , ABDOMEN: Soft , no tenderness EXTREMITIES: No edema feet - Labs CBC & Chem 7: 06/19/23 06:51 06/19/23 06:51 Labs: Abnormal Lab Results - Last 24 Hours (Table) 06/19/23 06/19/23 Range/Units 06:51 06:51 RBC 4.05 L (4.30-5.90) m/uL Hgb 11.1 L (13.0-17.5) gm/dL Hct 33.3 L (39.0-53.0) % RDW 17.2 H (11.5-15.5) % BUN 8 L (9-20) mg/dL Creatinine 0.60 L (0.66-1.25) mg/dL Microbiology - Last 24 Hours (Table) 06/17/23 10:16 Blood Culture - Preliminary Blood Assessment and Plan (1) E. coli bacteremia Status: Acute Code(s): R78.81 - BACTEREMIA; B96.20 - UNSP ESCHERICHIA COLI THE CAUSE OF DISEASES CLASSD [id number] SNOMED Code(s): 045690638527 (2) UTI (urinary tract infection) Status: Acute Priority: Medium Code(s): N39.0 - URINARY TRACT INFECTION, SITE NOT SPECIFIED SNOMED Code(s): 69356807 Plan: 1patient with sepsis in this patient with a fever and elevated white count source likely urinary, now with evidence of gram-negative bacteremia due to E. coli likely related to the urinary tract 2ultrasound of the kidney bladder no hydronephrosis markedly trabeculated and thickened bladder wall 3patient has short clinical improvement and we'll finish therapy with oral Ceftin 10 days on discharge, discussed with the admitting team working on myrna kaba Dictation was produced using [employer] dictation software. please excuse any grammatical, word or spelling errors. Time with Patient: Less than 30
== END 2023-06-19 15:14 | disposition home health service (06) | DRG 871 ==
LOC: EC 16:22 → 4SSUR 20:25
PROVIDERS: ADMIT Internal Medicine; ATTEND Internal Medicine
DX: A41.51 Sepsis due to Escherichia coli [E. coli] (principal); G92.8 Other toxic encephalopathy; E87.1 Hypo-osmolality and hyponatremia; N39.0 Urinary tract infection, site not specified; D64.9 Anemia, unspecified; E87.6 Hypokalemia; E87.8 Other disorders of electrolyte and fluid balance, not elsewhere classified; F20.9 Schizophrenia, unspecified; G20.A1 Parkinson's disease without dyskinesia, without mention of fluctuations; I11.9 Hypertensive heart disease without heart failure; I25.10 Atherosclerotic heart disease of native coronary artery without angina pectoris; Z20.822 Contact with and (suspected) exposure to COVID-19; N32.0 Bladder-neck obstruction; Z79.02 Long term (current) use of antithrombotics/antiplatelets; Z79.82 Long term (current) use of aspirin; Z79.899 Other long term (current) drug therapy; Z85.51 Personal history of malignant neoplasm of bladder; Z85.528 Personal history of other malignant neoplasm of kidney; Z95.0 Presence of cardiac pacemaker; Z95.5 Presence of coronary angioplasty implant and graft
CPT/HCPCS: 36415; 70450; 71046; 76770; 80048; 80053; 81001; 82140; 82565; 83605; 83735; 85025; 85027; 87040; 87077; 87086; 87186; 87636; 93005; 96361; 96374; 99285

== ENCOUNTER 2023-07-04 18:37 | Emergency (ER) | payer OTHER, MEDICARE ==
--- NOTE | 2023-07-04 19:05 | ED ---
Psych HPI - General Chief Complaint: Psychiatric Symptoms Stated Complaint: mental health Time Seen by Provider: 07/04/23 18:49 Source: patient, RN/MD Mode of arrival: EMS - History of Present Illness Initial Comments: Patient is a 67-year-old male presenting to the ER via EMS with a chief complaint of mental health evaluation. Patient states he would like to hurt other people. He denies any plans. Denies any drug or alcohol use. Patient denies any other complaints. Denies fevers or chills. - Related Data Home Medications Medication Instructions Recorded Confirmed Omeprazole 40 mg PO DAILY@0700 12/09/20 07/04/23 Aspirin 81 mg PO DAILY 07/28/21 07/04/23 Metoprolol Tartrate [Lopressor] 25 mg PO BID 07/28/21 07/04/23 cloZAPine [Clozaril] 300 mg PO HS@1930 02/03/22 07/04/23 Atorvastatin [Lipitor] 80 mg PO HS 07/04/22 07/04/23 Clopidogrel [Plavix] 75 mg PO DAILY 07/04/22 07/04/23 cloZAPine [Clozaril] 200 mg PO BID@0700,1430 07/04/22 07/04/23 clonazePAM [KlonoPIN] 0.5 mg PO BID 11/11/22 07/04/23 Carbidopa-Levodopa 25-100 mg 1 tab PO QID 05/31/23 07/04/23 [Sinemet 25-100 mg] DULoxetine HCL [Cymbalta] 60 mg PO DAILY 05/31/23 07/04/23 Tamsulosin [Flomax] 0.4 mg PO HS@1930 05/31/23 07/04/23 Sennosides/Docusate Sodium [Senna 2 tab PO DAILY PRN 06/14/23 07/04/23 Plus 8.6-50 mg Tablet] DULoxetine HCL [Cymbalta] 90 mg PO DIRECTED 07/04/23 07/04/23 Previous Rx's Medication Instructions Recorded Cefpodoxime Proxetil [Vantin] 100 mg PO Q12HR #20 tab 06/19/23 Allergies Allergy/AdvReac Type Severity Reaction Status Date / Time No Known Allergies Allergy Verified 07/04/23 20:55 Review of Systems ROS Statement: Those systems with pertinent positive or pertinent negative responses have been documented in the HPI. ROS Other: All systems not noted in ROS Statement are negative. Past Medical History Past Medical History: Hypertension Additional Past Medical History / Comment(s): renal CA with surgery parkinson History of Any Multi-Drug Resistant Organisms: Unobtainable Past Surgical History: Heart Catheterization With Stent, Orthopedic Surgery Additional Past Surgical History / Comment(s): cryoablation for renal CA, Heart Catheterization 04/23/2021, Past Anesthesia/Blood Transfusion Reactions: No Reported Reaction Date of Last Stent Placement:: 04/23/21 Type of Cardiac Device: Biventricular Pacemaker, Unknown Device Placement Date:: unknown Past Psychological History: Schizophrenia Smoking Status: Never smoker Past Alcohol Use History: None Reported Past Drug Use History: None Reported - Past Family History Family Family Medical History: No Reported History General Exam Limitations: no limitations General appearance: alert, in no apparent distress Head exam: Present: atraumatic, normocephalic, normal inspection Respiratory exam: Present: normal lung sounds bilaterally. Absent: respiratory distress, wheezes, rales, rhonchi, stridor Cardiovascular Exam: Present: regular rate, normal rhythm, normal heart sounds. Absent: systolic murmur, diastolic murmur, rubs, gallop, clicks Neurological exam: Present: alert, oriented X3, CN II-XII intact Psychiatric exam: Present: anxious, homicidal ideation Skin exam: Present: warm, dry, intact, normal color. Absent: rash Course Vital Signs 07/04/23 18:42 Temperature 97.8 F Pulse Rate 87 Respiratory 18 Rate Blood Pressure 142/85 O2 Sat by Pulse 95 Oximetry Medical Decision Making - Medical Decision Making Was pt. sent in by a medical professional or institution (, PA, STOCKHOLDER, urgent care, hospital, or fpc...) When possible be specific @ -No Did you speak to anyone other than the patient for history (EMS, parent, family, police, friend...)? What history was obtained from this source @ -No Did you review nursing and triage notes (agree or disagree)? Why? @ -I reviewed and agree with nursing and triage notes Were old charts reviewed (outside hosp., previous admission, EMS record, old EKG, old radiological studies, urgent care reports/EKG's, fpc records)? Report findings @ -No old charts were reviewed Differential Diagnosis (chest pain, altered mental status, abdominal pain women, abdominal pain men, vaginal bleeding, weakness, fever, dyspnea, syncope, headache, dizziness, GI bleed, back pain, seizure, CVA, palpatations, mental health, musculoskeletal)? @ -Differential Mental Health: Depression, anxiety, bipolar, psychosis, schizophrenia, borderline personality, situational depression, adjustment disorder, behavioral disorder, brain tumor, malingering, substance abuse, encephalopathy, medication reaction, dementia, hypothyroidism, degenerative neurologic disorder, lupus.... This is not meant to be all-inclusive list EKG interpreted by me (3pts min.). @ -None X-rays interpreted by me (1pt min.). @ -None done CT interpreted by me (1pt min.). @ -None done U/S interpreted by me (1pt. min.). @ -None done What testing was considered but not performed or refused? (CT, X-rays, U/S, labs)? Why? @ -None What meds were considered but not given or refused? Why? @ -None Did you discuss the management of the patient with other professionals (professionals i.e. , PA, STOCKHOLDER, lab, RT, psych nurse, social service agency director, volunteer services director, teacher, landing signal officer, counseling case manager)? Give summary @ -Yes, I spoke with Ebony from mental health who did an evaluation. She did not deem the patient a risk to anyone or himself. She may contact with his sister, guardian, and his sister states that he is currently being evaluated at the [place] for medication adjustment. His next appointment is 07/08/23. Patient is a resident at [facility] and has constant supervision. Per guardian he has never hurt anybody in his life. Mental health states she is safe for discharge. Was smoking cessation discussed for >3mins.? @ -No Was critical care preformed (if so, how long)? @ -No Were there social determinants of health that impacted care today? How? (Homelessness, low income, unemployed, alcoholism, drug addiction, transportation, low edu. Level, literacy, decrease access to med. care, care home, rehab)? @ -No Was there de-escalation of care discussed even if they declined (Discuss DNR or withdrawal of care, Hospice)? DNR status @ -No What co-morbidities impacted this encounter? (DM, HTN, Smoking, COPD, CAD, Cancer, CVA, ARF, Chemo, Hep., AIDS, mental health diagnosis, sleep apnea, morbid obesity)? @ -None Was patient admitted / discharged? Hospital course, mention meds given and rout e, prescriptions, significant lab abnormalities, going to OR and other pertinent info. @ -Discharge. Patient is a 67-year-old male presenting to the ER with chief Mental Health Ev aluation. Upon examination, patient's vitals were stable. BAT 0.00. Urine drug screen was positive for TCA, which he is prescribed. I spoke with Ebony from [facility] who did an evaluation. She did not deem the patient a risk to anyone or himself. She made contact with his sister, guardian, and his sister states that he is currently being evaluated at the [place] for medication adjustment. His next appointment is 07/08/23. Patient is a resident at [facility] and has constant supervision. Per guardian he has never hurt anybody in his life. Mental health states she is safe for discharge. Patient will be discharged in stable condition with follow-up to [place] for medication adjustment. Return parameters were discussed. Patient expressed understanding and agreement with care plan. Undiagnosed new problem with uncertain prognosis? @ -No Drug Therapy requiring intensive monitoring for toxicity (Heparin, Nitro, Insulin, Cardizem)? @ -No Were any procedures done? @ -No Diagnosis/symptom? @ -Mental health Acute, or Chronic, or Acute on Chronic? @ -Acute on chronic Uncomplicated (without systemic symptoms) or Complicated (systemic symptoms)? @ -Uncomplicated Side effects of treatment? @ -No Exacerbation, Progression, or Severe Exacerbation? @ -No Poses a threat to life or bodily function? How? (Chest pain, [place], [place], pneumonia, PE, COPD, DKA, ARF, appy, cholecystitis, CVA, Diverticulitis, Homicidal, Suicidal, threat to staff... and all critical care pts) @ -No - Lab Data Lab Results 07/04/23 Range/Units 19:30 Urine Opiates Screen Not Detected (NotDetected) Ur Oxycodone Screen Not Detected (NotDetected) Urine Methadone Screen Not Detected (NotDetected) Ur Propoxyphene Screen Not Detected (NotDetected) Ur Barbiturates Screen Not Detected (NotDetected) U Tricyclic Antidepress Detected H (NotDetected) Ur Phencyclidine Scrn Not Detected (NotDetected) Ur Amphetamines Screen Not Detected (NotDetected) U Methamphetamines Scrn Not Detected (NotDetected) U Benzodiazepines Scrn Not Detected (NotDetected) Urine Cocaine Screen Not Detected (NotDetected) U Marijuana (THC) Screen Not Detected (NotDetected) Disposition Clinical Impression: Mental health problem Disposition: HOME SELF-CARE Condition: Stable Additional Instructions: Please return to the Emergency Department if symptoms worsen or any other concerns. Is patient prescribed a controlled substance at d/c from ED?: No Referrals: [facility],Clinic [Primary Care Provider] - 1-2 days Time of Disposition: 21:11
[2023-07-04 19:27] VITALS: BP 142/85; PULSE 87; RESP 18; TEMP 97.8
[2023-07-04 20:32] LABS: Amphetamine Screen,Urine Not Detected (NotDetected); Barbiturate Screen,Urine Not Detected (NotDetected); Benzodiazepines Screen,Urine Not Detected (NotDetected); Cocaine Screen,Urine Not Detected (NotDetected); Methadone Screen, Urine Not Detected (NotDetected); Opiate Screen,Urine Not Detected (NotDetected); Oxycodone Screen, Urine Not Detected (NotDetected); Phencyclidine Screen,Urine Not Detected (NotDetected); Tricyclic Antidepressant,Urine Detected (NotDetected); Urn Cannabinoid Scrn Not Detected (NotDetected)
== END 2023-07-05 00:18 | disposition home or self-care (01) ==
LOC: EC 18:37
DX: F99 Mental disorder, not otherwise specified (principal); I10 Essential (primary) hypertension; Z79.82 Long term (current) use of aspirin; Z79.899 Other long term (current) drug therapy; Z79.02 Long term (current) use of antithrombotics/antiplatelets
CPT/HCPCS: 80306; 82075; 99285

== ENCOUNTER 2023-08-26 09:23 | Inpatient (IN) | payer OTHER, MEDICARE ==
[2023-08-26] MEDS ORDERED: MORPHINE SULFATE 4 MG/ML SYRINGE IV STA (09:47)
--- NOTE | 2023-08-26 09:52 | ED ---
General Adult HPI - General Chief complaint: Neck Pain/Injury Stated complaint: Weakness Time Seen by Provider: 08/26/23 09:26 Source: patient Mode of arrival: EMS Limitations: no limitations - History of Present Illness Initial comments: Dictation was produced using [employer] dictation software. please excuse any grammatical, word or spelling errors. Chief Complaint: 67-year-old male presents to the emergency department for neck pain History of Present Illness: Patient is 67-year-old male he has history of schizophrenia and suicidal ideation. Patient reports that he is here today for neck pain. Patient states that he has had neck pain daily for the last 6 months. States that it keeps his neck down most of the time. He has chronic kyphosis. Patient states that the pain slightly worse recently. Denies any trauma. No inciting event. Denies any radiation of symptoms. No acute neurologic symptoms. The ROS documented in this emergency department record has been reviewed and confirmed by me. Those systems with pertinent positive or negative responses have been documented in the HPI. All other systems are other negative and/or noncontributory. - Related Data Home Medications Medication Instructions Recorded Confirmed Omeprazole 40 mg PO DAILY@1500 12/09/20 08/26/23 Aspirin 81 mg PO DAILY@0700 07/28/21 08/26/23 Metoprolol Tartrate [Lopressor] 25 mg PO BID@0700,1900 07/28/21 08/26/23 cloZAPine [Clozaril] 300 mg PO HS@1900 02/03/22 08/26/23 Atorvastatin [Lipitor] 80 mg PO HS@1900 07/04/22 08/26/23 Clopidogrel [Plavix] 75 mg PO DAILY@0700 07/04/22 08/26/23 cloZAPine [Clozaril] 200 mg PO BID@0700,1500 07/04/22 08/26/23 clonazePAM [KlonoPIN] 0.5 mg PO BID@0700,1900 11/11/22 08/26/23 Carbidopa-Levodopa 25-100 mg 1 tab PO QID@07,11,15,19 05/31/23 08/26/23 [Sinemet 25-100 mg] DULoxetine HCL [Cymbalta] 60 mg PO DAILY@0700 05/31/23 08/26/23 Tamsulosin [Flomax] 0.4 mg PO HS@1900 05/31/23 08/26/23 Sennosides/Docusate Sodium [Senna 1 tab PO TID PRN 06/14/23 08/26/23 Plus 8.6-50 mg Tablet] amLODIPine [Norvasc] 5 mg PO HS@1900 08/26/23 08/26/23 Allergies Allergy/AdvReac Type Severity Reaction Status Date / Time No Known Allergies Allergy Verified 08/26/23 11:43 Review of Systems ROS Statement: Those systems with pertinent positive or pertinent negative responses have been documented in the HPI. ROS Other: All systems not noted in ROS Statement are negative. Past Medical History Past Medical History: Hyperlipidemia, Hypertension, Myocardial Infarction ([place]) Additional Past Medical History / Comment(s): parkinsonrenal CA with surgery parkinson History of Any Multi-Drug Resistant Organisms: Unobtainable Past Surgical History: Heart Catheterization With Stent, Orthopedic Surgery Additional Past Surgical History / Comment(s): cryoablation for renal CA, Heart Catheterization 04/23/2021, Past Anesthesia/Blood Transfusion Reactions: No Reported Reaction Date of Last Stent Placement:: 04/23/21 Type of Cardiac Device: Biventricular Pacemaker, Unknown Device Placement Date:: unknown Past Psychological History: Depression, Panic Disorder, Schizophrenia Smoking Status: Never smoker Past Alcohol Use History: None Reported Past Drug Use History: None Reported - Past Family History Family Family Medical History: No Reported History General Exam - General Exam Comments Initial Comments: PHYSICAL EXAM: General Impression: Alert and oriented x3, not in acute distress HEENT: Normocephalic atraumatic, extra-ocular movements intact, pupils equal and reactive to light bilaterally, mucous membranes moist. Cardiovascular: Heart regular rate and rhythm Chest: Able to complete full sentences, no retractions, no tachypnea Abdomen: abdomen soft, non-tender, non-distended, no organomegaly Musculoskeletal: Pulses present and equal in all extremities, no peripheral edema Motor: no focal deficits noted Neurological: CN II-XII grossly intact, no focal motor or sensory deficits noted Skin: Intact with no visualized rashes Psych: Normal affect and mood Limitations: no limitations Course Vital Signs 08/26/23 08/26/23 09:29 10:50 Temperature 97.6 F 98.3 F Pulse Rate 63 65 Respiratory 16 18 Rate Blood Pressure 112/68 115/83 O2 Sat by Pulse 98 98 Oximetry - Reevaluation(s) Reevaluation #1: 08/26/23 10:51 Patient was reevaluated at 10:50 AM found to be stable medical addition. More history is obtained from the sister who is currently at the bedside. States that he was sent to the emergency department for weakness low blood pressure. She states that he has extensive history of UTIs. Medical Decision Making - Medical Decision Making Was pt. sent in by a medical professional or institution (, PA, HONEY PRODUCER, urgent care, hospital, or fdc...) When possible be specific @ -Sent in from [facility] Did you speak to anyone other than the patient for history (EMS, parent, family, police, friend...)? What history was obtained from this source @ -See above Did you review nursing and triage notes (agree or disagree)? Why? @ -I reviewed and agree with nursing and triage notes Were old charts reviewed (outside hosp., previous admission, EMS record, old EKG, old radiological studies, urgent care reports/EKG's, fdc records)? Report findings @ -Previous microbiology chart reviewed showing that patient has had drug- resistant UTIs in the past Differential Diagnosis (chest pain, altered mental status, abdominal pain women, abdominal pain men, vaginal bleeding, musculoskeletal, weakness, fever, dyspnea, syncope, headache, dizziness, GI bleed, back pain, seizure, CVA, palpatations, mental health)? @ -Differential Weakness: Hypoglycemia, shock, sepsis, hyponatremia, anemia, infection, [place], ETOH, adverse medicine reaction, overdose, stroke, this is not meant to be an all-inclusive list. EKG interpreted by me (3pts min.). @ -None done X-rays interpreted by me (1pt min.). @ -C-spine x-rays unremarkable CT interpreted by me (1pt min.). @ -None done U/S interpreted by me (1pt. min.). @ -None done What testing was considered but not performed or refused? (CT, X-rays, U/S, labs)? Why? @ -None What meds were considered but not given or refused? Why? @ -None Did you discuss the management of the patient with other professionals (professionals i.e. , PA, HONEY PRODUCER, lab, RT, psych nurse, social director, air pollution analyst, teacher, special forces warrant officer, case management coordinator)? Give summary @ -Case discussed with hospitalist for admission Was smoking cessation discussed for >3mins.? @ -No Was critical care preformed (if so, how long)? @ -No Were there social determinants of health that impacted care today? How? (Homelessness, low income, unemployed, alcoholism, drug addiction, transportation, low edu. Level, literacy, decrease access to med. care, nursing home, rehab)? @ -No Was there de-escalation of care discussed even if they declined (Discuss DNR or withdrawal of care, Hospice)? DNR status @ -No What co-morbidities impacted this encounter? (DM, HTN, Smoking, COPD, CAD, Cancer, CVA, ARF, Chemo, Hep., AIDS, mental health diagnosis, sleep apnea, morbid obesity)? @ -None Was patient admitted / discharged? Hospital course, mention meds given and route, prescriptions, significant lab abnormalities, going to OR and other pertinent info. @ -67-year-old male states that he is here for neck pain. However more history obtained from sister/legal guardian states that patient is here for generalized weakness hypertension. Vital signs are stable. Patient has history of drug- resistant UTIs. Laboratory evaluation shows hyponatremia 122. Urinalysis positive for urinary tract infection. Viral testing negative. Patient will be admitted for treatment of hyponatremia and UTI. Given ceftriaxone. Patient given IV fluids Undiagnosed new problem with uncertain prognosis? @ -No Drug Therapy requiring intensive monitoring for toxicity (Heparin, Nitro, Insulin, Cardizem)? @ -No Were any procedures done? @ -No Diagnosis/symptom? Acute, or Chronic, or Acute on Chronic? Uncomplicated (without systemic symptoms) or Complicated (systemic symptoms)? @ -Hyponatremia, urinary tract infection Side effects of treatment? @ -No Exacerbation, Progression, or Severe Exacerbation? @ -No Poses a threat to life or bodily function? How? (Chest pain, [place], [place], pneumonia, PE, COPD, DKA, ARF, appy, cholecystitis, CVA, Diverticulitis, Homicidal, Suicidal, threat to staff... and all critical care pts) @ -yes - Lab Data Result diagrams: 08/26/23 10:56 08/26/23 10:56 Lab Results 08/26/23 08/26/23 08/26/23 Range/Units 10:56 10:56 10:56 WBC 6.4 (3.8-10.6) k/uL RBC 3.72 L (4.30-5.90) m/uL Hgb 10.4 L (13.0-17.5) gm/dL Hct 31.1 L (39.0-53.0) % MCV 83.7 (80.0-100.0) fL MCH 28.0 (25.0-35.0) pg MCHC 33.5 (31.0-37.0) g/dL RDW 16.6 H (11.5-15.5) % Plt Count 217 (150-450) k/uL MPV 8.1 Neutrophils % 77 % Lymphocytes % 12 % Monocytes % 7 % Eosinophils % 1 % Basophils % 0 % Neutrophils # 4.9 (1.3-7.7) k/uL Lymphocytes # 0.7 L (1.0-4.8) k/uL Monocytes # 0.4 (0-1.0) k/uL Eosinophils # 0.1 (0-0.7) k/uL Basophils # 0.0 (0-0.2) k/uL Anisocytosis Slight Sodium 122 L (137-145) mmol/L Potassium 4.2 (3.5-5.1) mmol/L Chloride 94 L (98-107) mmol/L Carbon Dioxide 23 (22-30) mmol/L Anion Gap 5 mmol/L BUN 9 (9-20) mg/dL Creatinine 0.77 (0.66-1.25) mg/dL Est GFR (CKD-EPI)AfAm >90 (>60 ml/min/1.73 sqM) Est GFR (CKD-EPI)NonAf >90 (>60 ml/min/1.73 sqM) Glucose 105 H (74-99) mg/dL Plasma Lactic Acid Rene (0.7-2.0) mmol/L Calcium 8.3 L (8.4-10.2) mg/dL Total Bilirubin 0.6 (0.2-1.3) mg/dL AST 23 (17-59) U/L ALT 7 (4-49) U/L Alkaline Phosphatase 73 (38-126) U/L Total Protein 5.5 L (6.3-8.2) g/dL Albumin 3.4 L (3.5-5.0) g/dL Urine Color Yellow Urine Appearance Cloudy (Clear) Urine pH 6.0 (5.0-8.0) Ur Specific [place] 1.007 (1.001-1.035) Urine Protein Negative (Negative) Urine Glucose (UA) Negative (Negative) Urine Ketones Negative (Negative) Urine Blood Negative (Negative) Urine Nitrite Negative (Negative) Urine Bilirubin Negative (Negative) Urine Urobilinogen 2.0 (<2.0) mg/dL Ur Leukocyte Esterase Large H (Negative) Urine RBC 2 (0-5) /hpf Urine WBC 63 H (0-5) /hpf Ur Squamous Epith Cells <1 (0-4) /hpf Urine Bacteria Moderate H (None) /hpf Influenza Type A (PCR) (Not Detectd) Influenza Type B (PCR) (Not Detectd) RSV (PCR) (Not Detectd) SARS-CoV-2 (PCR) (Not Detectd) 08/26/23 08/26/23 Range/Units 10:56 10:56 WBC (3.8-10.6) k/uL RBC (4.30-5.90) m/uL Hgb (13.0-17.5) gm/dL Hct (39.0-53.0) % MCV (80.0-100.0) fL MCH (25.0-35.0) pg MCHC (31.0-37.0) g/dL RDW (11.5-15.5) % Plt Count (150-450) k/uL MPV Neutrophils % % Lymphocytes % % Monocytes % % Eosinophils % % Basophils % % Neutrophils # (1.3-7.7) k/uL Lymphocytes # (1.0-4.8) k/uL Monocytes # (0-1.0) k/uL Eosinophils # (0-0.7) k/uL Basophils # (0-0.2) k/uL Anisocytosis Sodium (137-145) mmol/L Potassium (3.5-5.1) mmol/L Chloride (98-107) mmol/L Carbon Dioxide (22-30) mmol/L Anion Gap mmol/L BUN (9-20) mg/dL Creatinine (0.66-1.25) mg/dL Est GFR (CKD-EPI)AfAm (>60 ml/min/1.73 sqM) Est GFR (CKD-EPI)NonAf (>60 ml/min/1.73 sqM) Glucose (74-99) mg/dL Plasma Lactic Acid Rene 0.9 (0.7-2.0) mmol/L Calcium (8.4-10.2) mg/dL Total Bilirubin (0.2-1.3) mg/dL AST (17-59) U/L ALT (4-49) U/L Alkaline Phosphatase (38-126) U/L Total Protein (6.3-8.2) g/dL Albumin (3.5-5.0) g/dL Urine Color Urine Appearance (Clear) Urine pH (5.0-8.0) Ur Specific [place] (1.001-1.035) Urine Protein (Negative) Urine Glucose (UA) (Negative) Urine Ketones (Negative) Urine Blood (Negative) Urine Nitrite (Negative) Urine Bilirubin (Negative) Urine Urobilinogen (<2.0) mg/dL Ur Leukocyte Esterase (Negative) Urine RBC (0-5) /hpf Urine WBC (0-5) /hpf Ur Squamous Epith Cells (0-4) /hpf Urine Bacteria (None) /hpf Influenza Type A (PCR) Not Detected (Not Detectd) Influenza Type B (PCR) Not Detected (Not Detectd) RSV (PCR) Not Detected (Not Detectd) SARS-CoV-2 (PCR) Not Detected (Not Detectd) Disposition Clinical Impression: Hyponatremia, UTI (urinary tract infection) Disposition: ADMITTED IP TO THIS HOSP Condition: Fair Referrals: [facility] [Primary Care Provider] - 1-2 days Decision Time: 12:31
--- NOTE | 2023-08-26 10:35 | XR ---
EXAMINATION TYPE: XR cervical spine comp DATE OF EXAM: 08/26/2023 CLINICAL HISTORY: pain COMPARISON: NONE TECHNIQUE: Frontal, lateral, oblique, swimmers, and open mouth view of the cervical spine are obtaine d. 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 There is moder ate to severe degenerative narrowing noted extending from C4 through C6 7. Ventral and dorsal spondyl osis seen. IMPRESSION: No acute fracture or dislocation is seen in the cervical spine.ICD 10 NO FRACTURE, INITI AL EVALUATION
[2023-08-26 11:19] LABS: Anisocytosis Slight; Basophils % (A) 0 %; Eosinophils # (A) 0.1 k/uL (0-0.7); Eosinophils % (A) 1 %; HCT 31.1 % (39.0-53.0); HGB 10.4 gm/dL (13.0-17.5); Lymphocytes # (A) 0.7 k/uL (1.0-4.8); Lymphocytes % (A) 12 %; MCHC 33.5 g/dL (31.0-37.0); MCV 83.7 fL (80.0-100.0); Mean Platelet Volume 8.1; Monocytes # (A) 0.4 k/uL (0-1.0); Monocytes % (A) 7 %; Neutrophils # (A) 4.9 k/uL (1.3-7.7); Neutrophils % (A) 77 %; Platelet Count 217 k/uL (150-450); RBC 3.72 m/uL (4.30-5.90); RDW 16.6 % (11.5-15.5); WBC 6.4 k/uL (3.8-10.6)
[2023-08-26 11:33] LABS: ALT 7 U/L (4-49); AST 23 U/L (17-59); African American GFR (CKD) >90 (>60 ml/min/1.73 sqM); Albumin 3.4 g/dL (3.5-5.0); Alkaline Phosphatase 73 U/L (38-126); Anion Gap 5 mmol/L; Blood Urea Nitrogen 9 mg/dL (9-20); Calcium 8.3 mg/dL (8.4-10.2); Carbon Dioxide 23 mmol/L (22-30); Chloride 94 mmol/L (98-107); Glucose 105 mg/dL (74-99); Non-African American GFR(CKD) >90 (>60 ml/min/1.73 sqM); Potassium 4.2 mmol/L (3.5-5.1); Sodium 122 mmol/L (137-145); Total Bilirubin 0.6 mg/dL (0.2-1.3); Total Protein 5.5 g/dL (6.3-8.2)
[2023-08-26 11:39] LABS: Appearance,Urine Cloudy (Clear); Bacteria,Urine Moderate /hpf; Bilirubin,Urine Negative (Negative); Blood,Urine Negative (Negative); Color,Urine Yellow; Glucose,Urine (UA) Negative (Negative); Ketones,Urine Negative (Negative); Leukocyte Esterase,Urine Large (Negative); Nitrite,Urine Negative (Negative); Protein,Urine Negative (Negative); RBC,Urine 2 /hpf (0-5); Specific Gravity,Urine 1.007 (1.001-1.035); Squamous Epithelial Cell,Urine <1 /hpf (0-4); WBC,Urine 63 /hpf (0-5)
[2023-08-26] MEDS ORDERED: cefTRIAXone IN SWFI 1,000 MG/10 ML SYRINGE IVP STA (12:12)
[2023-08-26] MEDS ORDERED: NALOXONE 0.4 MG/ML 1 ML VIAL IV PRN (12:22)
[2023-08-26] MEDS ORDERED: SODIUM CHLORIDE 0.9% 1,000 ML IV STA (12:27)
[2023-08-26] MEDS: SODIUM CHLORIDE 0.9% 1,000 ML IV SCH (12:38)
[2023-08-26] MEDS ORDERED: LIDOCAINE 4% CREAM 5 GM TUBE TOPICAL ONE (13:18)
[2023-08-26] MEDS ORDERED: Acetaminophen-Codeine 300-30mg TAB PO STA (13:19)
[2023-08-26] MEDS ORDERED: SENNOSIDES-DOCUSATE SODIUM 1 EACH TAB PO PRN (13:20)
--- NOTE | 2023-08-26 13:22 | P.HPIM ---
History of Present Illness This is a pleasant 67 years old male with multiple medical problems as below Patient presents because of neck pain 7 days and he woke up with this pain this morning felt like 8 and 9/10 in severity, and down to 7/10 The pain is nonradiating and associated with mild tenderness in the back of the neck with no restriction of movement. Patient can move his head and neck from side to side and he can touch his chin. No obvious neurological deficit with no weakness or numbness. Patient has chronic tingling in his both toes for about 3-4 months. Also he has difficulty standingom sitting position. But this is chronic problem going on for a few months to continue. Also patient was complaining of from increased frequency of urination and urgency, yesterday he went himself. He drinks a lot of water from a specific reason probably because of his previous UTIs is been told to drink water. He denies nausea vomiting or diarrhea. No abdominal pain. No dysuria. No denuded dizziness. He denies smoking alcohol or illicit tracts. vitals are stable Hemoglobin 10.4 Sodium 122 Breast flaps were unremarkable EKG showed normal sinus rhythm at [address]-T changes Cervical x-rays negative for acute process Influenza A and type B, RSV, SARS (coronavirus) are and detected patient received ceftriaxone in ER and 1 L of normal saline Review of Systems Review of systems CONSTITUTIONAL: No fever, no malaise, no fatigue. HEENT: No recent visual problems or hearing problems. Denied any sore throat. CARDIOVASCULAR: No orthopnea, PND, no palpitations, no syncope. PULMONARY: No shortness of breath, no cough, no hemoptysis. GASTROINTESTINAL: No diarrhea, no nausea, no vomiting, no abdominal pain. Normoactive bowel sounds. NEUROLOGICAL: No headaches, no weakness, no numbness. HEMATOLOGICAL: Denies any bleeding or petechiae. GENITOURINARY: Denies any burning micturition, frequency, or urgency. MUSCULOSKELETAL/RHEUMATOLOGICAL: Denies any joint pain, swelling, or any muscle pain. ENDOCRINE: Denies any polyuria or polydipsia. Past Medical History Past Medical History: Hyperlipidemia, Hypertension, Myocardial Infarction ([place]) Additional Past Medical History / Comment(s): parkinsonrenal CA with surgery parkinson History of Any Multi-Drug Resistant Organisms: Unobtainable Past Surgical History: Heart Catheterization With Stent, Orthopedic Surgery Additional Past Surgical History / Comment(s): cryoablation for renal CA, Heart Catheterization 04/23/2021, Past Anesthesia/Blood Transfusion Reactions: No Reported Reaction Date of Last Stent Placement:: 04/23/21 Type of Cardiac Device: Biventricular Pacemaker, Unknown Device Placement Date:: unknown Past Psychological History: Depression, Panic Disorder, Schizophrenia Smoking Status: Never smoker Past Alcohol Use History: None Reported Past Drug Use History: None Reported - Past Family History Family Family Medical History: No Reported History Medications and Allergies Home Medications Medication Instructions Recorded Confirmed Type Omeprazole 40 mg PO DAILY@1500 12/09/20 08/26/23 History Aspirin 81 mg PO DAILY@0700 07/28/21 08/26/23 History Metoprolol Tartrate [Lopressor] 25 mg PO BID@0700,1900 07/28/21 08/26/23 History cloZAPine [Clozaril] 300 mg PO HS@1900 02/03/22 08/26/23 History Atorvastatin [Lipitor] 80 mg PO HS@1900 07/04/22 08/26/23 History Clopidogrel [Plavix] 75 mg PO DAILY@0700 07/04/22 08/26/23 History cloZAPine [Clozaril] 200 mg PO BID@0700,1500 07/04/22 08/26/23 History clonazePAM [KlonoPIN] 0.5 mg PO BID@0700,1900 11/11/22 08/26/23 History Carbidopa-Levodopa 25-100 mg 1 tab PO QID@07,11,15,19 05/31/23 08/26/23 History [Sinemet 25-100 mg] DULoxetine HCL [Cymbalta] 60 mg PO DAILY@0700 05/31/23 08/26/23 History Tamsulosin [Flomax] 0.4 mg PO HS@1900 05/31/23 08/26/23 History Sennosides/Docusate Sodium [Senna 1 tab PO TID PRN 06/14/23 08/26/23 History Plus 8.6-50 mg Tablet] amLODIPine [Norvasc] 5 mg PO HS@1900 08/26/23 08/26/23 History Allergies Allergy/AdvReac Type Severity Reaction Status Date / Time No Known Allergies Allergy Verified 08/26/23 11:43 Physical Exam Vitals: Vital Signs Temp Pulse Resp BP Pulse Ox 08/26/23 12:30 98.2 F 64 18 137/89 100 08/26/23 10:50 98.3 F 65 18 115/83 98 08/26/23 09:29 97.6 F 63 16 112/68 98 Intake and Output 08/25/23 08/26/23 08/26/23 22:59 06:59 14:59 Other: Weight 88.451 kg -GENERAL: The patient is alert and oriented x3, not in any acute distress. Well developed, well nourished. Generally weak -HEENT: Pupils are round and equally reacting to light. EOMI. No scleral icterus. No conjunctival pallor. Normocephalic, atraumatic. No pharyngeal erythema. No thyromegaly. Tenderness in the back of the neck, mild CARDIOVASCULAR: S1 and S2 present. No murmurs, rubs, or gallops. PULMONARY: Chest is clear to auscultation, no wheezing , no crackles. ABDOMEN: Soft, nontender, nondistended, normoactive bowel sounds. No palpable organomegaly. MUSCULOSKELETAL: No joint swelling or deformity. EXTREMITIES: No cyanosis, clubbing, or pedal edema. NEUROLOGICAL: Gross neurological examination did not reveal any focal deficits. SKIN: No rashes. no petechiae. Results CBC & Chem 7: 08/26/23 10:56 08/26/23 10:56 Labs: Abnormal Lab Results - Last 24 Hours (Table) 08/26/23 08/26/23 08/26/23 Range/Units 10:56 10:56 10:56 RBC 3.72 L (4.30-5.90) m/uL Hgb 10.4 L (13.0-17.5) gm/dL Hct 31.1 L (39.0-53.0) % RDW 16.6 H (11.5-15.5) % Lymphocytes # 0.7 L (1.0-4.8) k/uL Sodium 122 L (137-145) mmol/L Chloride 94 L (98-107) mmol/L Glucose 105 H (74-99) mg/dL Calcium 8.3 L (8.4-10.2) mg/dL Total Protein 5.5 L (6.3-8.2) g/dL Albumin 3.4 L (3.5-5.0) g/dL Ur Leukocyte Esterase Large H (Negative) Urine WBC 63 H (0-5) /hpf Urine Bacteria Moderate H (None) /hpf Assessment and Plan Assessment: hyponatremia, mildly hypovolemic or euvolemic Acute urinary tract infection Neck pain, most likely musculoskeletal, no evidence of neurological deficits General weakness secondary to above History of Parkinson disease Hyperlipidemia Hypertension History of schizophrenia Plan: Patient received normal saline We'll continue with fluid restriction and monitor sodium Start ceftriaxone follow-up urine culture Infectious disease and nephrology consult Fluid restriction [id number] per day Labs and medication were reviewed.. Continue same treatment. Continue with symptomatic treatment. Resume home medication. Monitor labs and vitals. DVT and GI prophylaxis. Further recommendations as per clinical course of the patient DVT prophylaxis: Subcutaneous heparin GI Prophylaxis: Pepcid PT/OT: Pending Prognosis is guarded
[2023-08-26] MEDS: CARBIDOPA-LEVODOPA 25-100 MG 1 EACH TAB PO SCH ×2 (14:06→20:17)
[2023-08-26] MEDS: cloZAPine 100 MG TAB PO SCH ×2 (14:07→20:17)
[2023-08-26] MEDS: METOPROLOL TARTRATE 25 MG TAB PO SCH (20:16)
[2023-08-26] MEDS: amLODIPine 5 MG TAB PO SCH (20:16)
[2023-08-26] MEDS: FAMOTIDINE 20 MG/2 ML VIAL IV SCH (20:17)
[2023-08-26] MEDS: TAMSULOSIN 0.4 MG CAP.ER.24H PO SCH (20:17)
[2023-08-26] MEDS: clonazePAM 0.5 MG TAB PO SCH (20:17)
[2023-08-26] MEDS: ATORVASTATIN 80 MG TAB PO SCH (20:17)
[2023-08-26 20:24] LABS: African American GFR (CKD) >90 (>60 ml/min/1.73 sqM); Anion Gap 6 mmol/L; Blood Urea Nitrogen 7 mg/dL (9-20); Calcium 8.5 mg/dL (8.4-10.2); Carbon Dioxide 26 mmol/L (22-30); Chloride 102 mmol/L (98-107); Glucose 104 mg/dL (74-99); Non-African American GFR(CKD) >90 (>60 ml/min/1.73 sqM); Potassium 4.1 mmol/L (3.5-5.1); Sodium 134 mmol/L (137-145)
[2023-08-26] MEDS: HEPARIN SODIUM,PORCINE 5,000 UNIT/ML 1 ML VIAL SQ SCH (20:24)
[2023-08-26] MEDS ORDERED: DEXTROSE 5% IN WATER 1,000 ML IV ONE (20:38)
[2023-08-27 00:35] LABS: African American GFR (CKD) >90 (>60 ml/min/1.73 sqM); Anion Gap 5 mmol/L; Blood Urea Nitrogen 6 mg/dL (9-20); Calcium 8.3 mg/dL (8.4-10.2); Carbon Dioxide 26 mmol/L (22-30); Chloride 103 mmol/L (98-107); Glucose 111 mg/dL (74-99); Non-African American GFR(CKD) >90 (>60 ml/min/1.73 sqM); Potassium 4.1 mmol/L (3.5-5.1); Sodium 134 mmol/L (137-145)
[2023-08-27 02:08] LABS: African American GFR (CKD) >90 (>60 ml/min/1.73 sqM); Anion Gap 5 mmol/L; Blood Urea Nitrogen 6 mg/dL (9-20); Calcium 8.3 mg/dL (8.4-10.2); Carbon Dioxide 24 mmol/L (22-30); Chloride 104 mmol/L (98-107); Glucose 110 mg/dL (74-99); Non-African American GFR(CKD) >90 (>60 ml/min/1.73 sqM); Sodium 133 mmol/L (137-145)
[2023-08-27] MEDS: DEXTROSE 5% IN WATER 1,000 ML IV SCH ×4 (04:38→17:34)
[2023-08-27 05:24] LABS: African American GFR (CKD) >90 (>60 ml/min/1.73 sqM); Anion Gap 2 mmol/L; Blood Urea Nitrogen 6 mg/dL (9-20); Calcium 8.3 mg/dL (8.4-10.2); Carbon Dioxide 27 mmol/L (22-30); Chloride 104 mmol/L (98-107); Glucose 101 mg/dL (74-99); Magnesium 2.2 mg/dL (1.6-2.3); Non-African American GFR(CKD) >90 (>60 ml/min/1.73 sqM); Potassium 4.3 mmol/L (3.5-5.1); Sodium 133 mmol/L (137-145)
--- NOTE | 2023-08-27 08:04 | P.CONS ---
History of Present Illness - Reason for Consult Consult date: 08/26/23 - History of Present Illness Patient is a 67-year-old male with a past medical history significant for hypertension hyperlipidemia [place] did have a history of renal cancer, patient presenting to the ER for evaluation of not feeling well and did have some screaming episode along with some mental status changes patient denies having any headache or URI symptoms he was complaining of some neck pain to the ER physician but no recent worsening no chest pain shortness of breath or cough no abdominal pain or any diarrhea did have some urinary difficulty as well as burning but no suprapubic or flank pain on presentation to the hospital the patient was afebrile and no fever has been called subsequently patient was not tachycardic hypotensive or hypoxic white count of 6.4 creatinine 0.77 urine was positive with large leukocyte Estrace 63 WBC cultures are pending influenza RSV COVID testing was negative patient did have a cervical spine x-ray no acute fracture or dislocation is seen patient was started on Rocephin concern for UTI admitted to hospital infectious disease was consulted for further management of antibiotic therapy Past Medical History Past Medical History: Hyperlipidemia, Hypertension, Myocardial Infarction ([place]) Additional Past Medical History / Comment(s): renal CA with surgery, parkinson's Last Myocardial Infarction Date:: unknown History of Any Multi-Drug Resistant Organisms: None Reported Past Surgical History: Heart Catheterization With Stent, Orthopedic Surgery Additional Past Surgical History / Comment(s): cryoablation for renal CA, Heart Catheterization 04/23/2021, Past Anesthesia/Blood Transfusion Reactions: No Reported Reaction Date of Last Stent Placement:: 04/23/21 Type of Cardiac Device: Biventricular Pacemaker, Unknown Device Placement Date:: unknown Past Psychological History: Depression, Panic Disorder, Schizophrenia Additional Psychological History / Comment(s): patient resides alone at [facility] Smoking Status: Never smoker Past Alcohol Use History: None Reported Past Drug Use History: None Reported - Past Family History Family Family Medical History: No Reported History Medications and Allergies Home Medications Medication Instructions Recorded Confirmed Type Omeprazole 40 mg PO DAILY@1500 12/09/20 08/26/23 History Aspirin 81 mg PO DAILY@0700 07/28/21 08/26/23 History Metoprolol Tartrate [Lopressor] 25 mg PO BID@0700,1900 07/28/21 08/26/23 History cloZAPine [Clozaril] 300 mg PO HS@1900 02/03/22 08/26/23 History Atorvastatin [Lipitor] 80 mg PO HS@1900 07/04/22 08/26/23 History Clopidogrel [Plavix] 75 mg PO DAILY@0700 07/04/22 08/26/23 History cloZAPine [Clozaril] 200 mg PO BID@0700,1500 07/04/22 08/26/23 History clonazePAM [KlonoPIN] 0.5 mg PO BID@0700,1900 11/11/22 08/26/23 History Carbidopa-Levodopa 25-100 mg 1 tab PO QID@07,11,,05/31/23 08/26/23 History [Sinemet 25-100 mg] DULoxetine HCL [Cymbalta] 60 mg PO DAILY@0700 05/31/23 08/26/23 History Tamsulosin [Flomax] 0.4 mg PO HS@1900 05/31/23 08/26/23 History Sennosides/Docusate Sodium [Senna 1 tab PO TID PRN 06/14/23 08/26/23 History Plus 8.6-50 mg Tablet] amLODIPine [Norvasc] 5 mg PO HS@1900 08/26/23 08/26/23 History Allergies Allergy/AdvReac Type Severity Reaction Status Date / Time No Known Allergies Allergy Verified 08/26/23 11:43 Physical Exam Vitals: Vital Signs Temp Pulse Pulse Resp BP BP Pulse Ox 08/26/23 13:57 71 18 135/85 100 08/26/23 12:30 98.2 F 64 18 137/89 100 08/26/23 10:50 98.3 F 65 18 115/83 98 08/26/23 09:29 97.6 F 63 16 112/68 98 Intake and Output 08/26/23 08/26/23 08/26/23 06:59 14:59 22:59 Output Total 969 Balance -969 Output: Urine 500 Post Void Residual 469 Other: Voiding Method Toilet Urinal Weight 88.451 kg Results CBC & Chem 7: 08/26/23 10:56 08/27/23 12:27 Labs: Abnormal Lab Results - Last 24 Hours (Table) 08/26/23 08/26/23 08/26/23 Range/Units 10:56 10:56 10:56 RBC 3.72 L (4.30-5.90) m/uL Hgb 10.4 L (13.0-17.5) gm/dL Hct 31.1 L (39.0-53.0) % RDW 16.6 H (11.5-15.5) % Lymphocytes # 0.7 L (1.0-4.8) k/uL Sodium 122 L (137-145) mmol/L Chloride 94 L (98-107) mmol/L Glucose 105 H (74-99) mg/dL Calcium 8.3 L (8.4-10.2) mg/dL Total Protein 5.5 L (6.3-8.2) g/dL Albumin 3.4 L (3.5-5.0) g/dL Ur Leukocyte Esterase Large H (Negative) Urine WBC 63 H (0-5) /hpf Urine Bacteria Moderate H (None) /hpf Assessment and Plan Plan: 1patient presented to the hospital with some mental status changes did have urinary symptoms positive UA concerning for a symptomatic UTI likely from enteric gram-negative pathogen 2-patient to continue with Rocephin while waiting for the culture to finalize We will follow on clinical condition and cultures to further adjust medication if needed Thank you for this consultation we will follow the patient along with you Dictation was produced using [employer] dictation software. please excuse any grammatical, word or spelling errors. Time with Patient: Greater than 30
[2023-08-27] MEDS: CARBIDOPA-LEVODOPA 25-100 MG 1 EACH TAB PO SCH ×4 (08:41→18:16)
[2023-08-27] MEDS: cloZAPine 100 MG TAB PO SCH ×3 (08:41→18:16)
[2023-08-27] MEDS: ASPIRIN 81 MG PO SCH (08:41)
[2023-08-27] MEDS: METOPROLOL TARTRATE 25 MG TAB PO SCH ×2 (08:41→18:17)
[2023-08-27] MEDS: clonazePAM 0.5 MG TAB PO SCH ×2 (08:42→18:16)
[2023-08-27] MEDS: HEPARIN SODIUM,PORCINE 5,000 UNIT/ML 1 ML VIAL SQ SCH ×2 (08:42→21:07)
[2023-08-27] MEDS: FAMOTIDINE 20 MG/2 ML VIAL IV SCH (08:42)
[2023-08-27] MEDS: CLOPIDOGREL 75 MG TAB PO SCH (08:42)
[2023-08-27] MEDS: DULoxetine HCL 60 MG CAPSULE.DR PO SCH (08:42)
[2023-08-27 08:51] LABS: African American GFR (CKD) >90 (>60 ml/min/1.73 sqM); Anion Gap 8 mmol/L; Blood Urea Nitrogen 5 mg/dL (9-20); Calcium 8.3 mg/dL (8.4-10.2); Carbon Dioxide 23 mmol/L (22-30); Chloride 103 mmol/L (98-107); Glucose 101 mg/dL (74-99); Non-African American GFR(CKD) >90 (>60 ml/min/1.73 sqM); Potassium 4.2 mmol/L (3.5-5.1); Sodium 134 mmol/L (137-145)
[2023-08-27] MEDS ORDERED: cefTRIAXone IN SWFI 1,000 MG/10 ML SYRINGE IVP SCH (09:00)
--- NOTE | 2023-08-27 10:58 | P.NPCON ---
History of Present Illness - Reason for Consult hyponatremia - History of Present Illness Reason for consultation: Hyponatremia History of present illness: Patient is a 67-year-old male seen in renal consultation for hyponatremia. Patient sodium level on admission on August 26, 2023 at 10:56 AM was 122. It was repeated that evening at 7:43 PM and was up to 134. Patient received D5W overnight and sodium level is stable at 134 this morning. However according to the nurse the IV was not hooked up the entire time and he did not get D5W the entire night. The rate was increased to 200 cc an hour this morning and repeat sodium level is pending. Patient is resting in bed. He is not a reliable hist orian. Patient states he came to the hospital because he was hallucinating. He denies use of thiazide diuretics. He denies history of malignancy. Patient states he drinks about 4 to 5 cups of water and 2 cups of coffee daily. TSH was normal. No chest pain or shortness of breath. Denies history of kidney disease. Patient does have history of schizophrenia. He does take Cymbalta outpatient. Vital signs are stable. General: No acute distress. HEENT: Head exam is unremarkable. LUNGS: No audible rhonchi or wheezes. HEART: Rate and Rhythm are regular. ABDOMEN: A nontender. EXTREMITITES: No edema. Past Medical History Past Medical History: Hyperlipidemia, Hypertension, Myocardial Infarction ([place]) Additional Past Medical History / Comment(s): renal CA with surgery, parkinson's Last Myocardial Infarction Date:: unknown History of Any Multi-Drug Resistant Organisms: None Reported Past Surgical History: Heart Catheterization With Stent, Orthopedic Surgery Additional Past Surgical History / Comment(s): cryoablation for renal CA, Heart Catheterization 04/23/2021, Past Anesthesia/Blood Transfusion Reactions: No Reported Reaction Date of Last Stent Placement:: 04/23/21 Type of Cardiac Device: Biventricular Pacemaker, Unknown Device Placement Date:: unknown Past Psychological History: Depression, Panic Disorder, Schizophrenia Additional Psychological History / Comment(s): patient resides alone at [facility] Smoking Status: Never smoker Past Alcohol Use History: None Reported Past Drug Use History: None Reported - Past Family History Family Family Medical History: No Reported History Medications and Allergies Home Medications Medication Instructions Recorded Confirmed Type Omeprazole 40 mg PO DAILY@1500 12/09/20 08/26/23 History Aspirin 81 mg PO DAILY@0700 07/28/21 08/26/23 History Metoprolol Tartrate [Lopressor] 25 mg PO BID@0700,1900 07/28/21 08/26/23 History cloZAPine [Clozaril] 300 mg PO HS@1900 02/03/22 08/26/23 History Atorvastatin [Lipitor] 80 mg PO HS@1900 07/04/22 08/26/23 History Clopidogrel [Plavix] 75 mg PO DAILY@0700 07/04/22 08/26/23 History cloZAPine [Clozaril] 200 mg PO BID@0700,1500 07/04/22 08/26/23 History clonazePAM [KlonoPIN] 0.5 mg PO BID@0700,1900 11/11/22 08/26/23 History Carbidopa-Levodopa 25-100 mg 1 tab PO QID@07,11,15,19 05/31/23 08/26/23 History [Sinemet 25-100 mg] DULoxetine HCL [Cymbalta] 60 mg PO DAILY@0700 05/31/23 08/26/23 History Tamsulosin [Flomax] 0.4 mg PO HS@1900 05/31/23 08/26/23 History Sennosides/Docusate Sodium [Senna 1 tab PO TID PRN 06/14/23 08/26/23 History Plus 8.6-50 mg Tablet] amLODIPine [Norvasc] 5 mg PO HS@1900 08/26/23 08/26/23 History Allergies Allergy/AdvReac Type Severity Reaction Status Date / Time No Known Allergies Allergy Verified 08/26/23 11:43 Physical Exam Vitals: Vital Signs Temp Pulse Pulse Resp BP BP Pulse Ox 08/27/23 07:29 97 F L 97 16 107/62 98 08/27/23 01:38 98 F 73 16 133/71 96 08/26/23 20:00 98.3 F 72 16 134/82 97 08/26/23 13:57 71 18 135/85 100 08/26/23 12:30 98.2 F 64 18 137/89 100 Intake and Output 08/26/23 08/27/23 08/27/23 22:59 06:59 14:59 Output Total 2369 950 400 Balance -2369 -950 -400 Output: Urine 1900 950 400 Post Void Residual 469 Other: Voiding Method Urinal Urinal # Voids 1 1 Results - Lab Results Most recent lab results Calcium 8.3 mg/dL (8.4-10.2) L 08/27/23 07:45 Magnesium 2.2 mg/dL (1.6-2.3) 08/27/23 04:37 08/26/23 10:56 08/27/23 07:45 Assessment and Plan Plan: Assessment: 1. Hypovolemic hyponatremia. Also component of poor solute intake. Sodium level 122 on admission at 10:56 AM August 26, 2023 and 134 in the evening. Received D5W overnight and sodium level is stable at 134 this morning. TSH normal. Urine sodium less than 20 and urine osmolality 178. 2. History of schizophrenia. 3. UTI on antibiotics. 4. Benign hypertension. Controlled. Plan: Maintain D5W at 200 cc an hour. Repeat sodium level pending. Goal is to lower serum sodium level by 3-4 mmoml/L. Will give DDAVP if sodium level not trending lower. Thank you for the consultation. I will continue to follow the patient with you during his hospital stay.
--- NOTE | 2023-08-27 13:08 | P.PN ---
Subjective This is a pleasant 67 years old male with multiple medical problems as below Patient presents because of neck pain 7 days and he woke up with this pain this morning felt like 8 and 9/10 in severity, and down to 7/10 The pain is nonradiating and associated with mild tenderness in the back of the neck with no restriction of movement. Patient can move his head and neck from side to side and he can touch his chin. No obvious neurological deficit with no weakness or numbness. Patient has chronic tingling in his both toes for about 3-4 months. Also he has difficulty standingom sitting position. But this is chronic problem going on for a few months to continue. Also patient was complaining of from increased frequency of urination and urgency, yesterday he went himself. He drinks a lot of water from a specific reason probably because of his previous UTIs is been told to drink water. He denies nausea vomiting or diarrhea. No abdominal pain. No dysuria. No denuded dizziness. He denies smoking alcohol or illicit tracts. vitals are stable Hemoglobin 10.4 Sodium 122 Breast flaps were unremarkable EKG showed normal sinus rhythm at [address]-T changes Cervical x-rays negative for acute process Influenza A and type B, RSV, SARS (coronavirus) are and detected patient received ceftriaxone in ER and 1 L of normal saline 08/27/2023 Patient is awake and alert, is reasonable and communicate appropriately. He denies any specific symptoms, no headache or neck pain. No GI or urinary symptoms. No abdominal pain vomiting or diarrhea No chest pain or dyspnea. No new complaints. Physical therapy today, I discussed the case with the team, he has mild unsteadiness and this can be managed and his [place] [facility]. Patient states that he has a schizophrenic paranoid type but he does not is acting up for him now, he denies any specific symptoms of paranoia, he denies suicidal or homicidal ideation to me and he denies hallucination or delusions. He does not think he needs to see a psychiatrist now. His monitored closely for his sodium has been nephrology team are following closely, his sodium was 134 over the last 12 hours or so, he is currently on D5W at 200 mL per hour His currently on ceftriaxone 2 g daily He has positive blood culture with platelets negative staph most likely contaminant Currently covered with Rocephin for his UTI Also he is on home dose of aspirin and Plavix. At the close around and other medication reviewed. Active Medications Generic Name Dose Route Start Last Admin Trade Name Andriy PRN Reason Stop Dose Admin Amlodipine Besylate 5 mg 08/26/23 19:00 08/26/23 20:16 Amlodipine 5 Mg Tab PO 5 mg HS@1900 JEAN Administration Aspirin 81 mg 08/27/23 07:00 08/27/23 08:41 Aspirin 81 Mg PO 81 mg DAILY@0700 JEAN Administration Atorvastatin Calcium 80 mg 08/26/23 19:00 08/26/23 20:17 Atorvastatin 80 Mg Tab PO 80 mg HS@1900 JEAN Administration Carbidopa/Levodopa 1 each 08/26/23 15:00 08/27/23 12:13 Carbidopa-Levodopa 25-100 Mg 1 Each Tab PO 1 each QID@07,11,15,19 JEAN Administration Clonazepam 0.5 mg 08/26/23 19:00 08/27/23 08:42 Clonazepam 0.5 Mg Tab PO 0.5 mg BID@0700,1900 JEAN Administration Clopidogrel Bisulfate 75 mg 08/27/23 07:00 08/27/23 08:42 Clopidogrel 75 Mg Tab PO 75 mg DAILY@0700 JEAN Administration Clozapine 200 mg 08/26/23 15:00 08/27/23 08:41 Clozapine 100 Mg Tab PO 09/02/23 23:00 200 mg BID@0700,1500 JEAN Administration Clozapine 300 mg 08/26/23 19:00 08/26/23 20:17 Clozapine 100 Mg Tab PO 09/02/23 23:00 300 mg HS@1900 JEAN Administration Duloxetine HCl 60 mg 08/27/23 07:00 08/27/23 08:42 Duloxetine Hcl 60 Mg Capsule.Dr PO 60 mg DAILY@0700 JEAN Administration Famotidine 20 mg 08/27/23 21:00 Famotidine 20 Mg Tab PO BID JEAN Heparin Sodium (Porcine) 5,000 unit 08/26/23 21:00 08/27/23 08:42 Heparin Sodium,Porcine 5,000 Unit/Ml 1 Ml Vial SQ 5,000 unit Q12HR JEAN Administration Sodium Chloride 1,000 mls @ 20 mls/hr 08/26/23 12:30 08/26/23 12:38 Saline 0.9% IV 20 mls/hr .Q24H JEAN Administration Dextrose/Water 1,000 mls @ 200 mls/hr 08/27/23 04:15 08/27/23 12:13 Dextrose 5%-Water Iv Soln IV 200 mls/hr .Q5H JEAN Administration Ceftriaxone Sodium 2 gm/ 50 mls @ 100 mls/hr 08/28/23 09:00 Sodium Chloride IVPB Q24HR [facility] Metoprolol Tartrate 25 mg 08/26/23 19:00 08/27/23 08:41 Metoprolol Tartrate 25 Mg Tab PO 25 mg BID@0700,1900 JEAN Administration Naloxone HCl 0.2 mg 08/26/23 12:22 Naloxone 0.4 Mg/Ml 1 Ml Vial IV Q2M PRN Opioid Reversal Senna/Docusate Sodium 1 each 08/26/23 13:20 Sennosides-Docusate Sodium 1 Each Tab PO TID PRN Constipation Tamsulosin HCl 0.4 mg 08/26/23 19:00 08/26/23 20:17 Tamsulosin 0.4 Mg Cap.Er.24h PO 0.4 mg HS@1900 JEAN Administration Objective - Vital Signs Vital signs: Vital Signs Temp 97 F L 08/27/23 07:29 Pulse 97 08/27/23 07:29 Resp 16 08/27/23 07:29 BP 107/62 08/27/23 07:29 Pulse Ox 98 08/27/23 07:29 FiO2 Intake & Output 08/26/23 08/27/23 08/27/23 18:59 06:59 18:59 Output Total 1869 1450 900 Balance -1869 -1450 -900 Weight 88.451 kg Output: Urine 1400 1450 900 Post Void Residual 469 Other: Voiding Method Toilet Urinal Urinal Urinal # Voids 1 - Exam GENERAL: The patient is alert and oriented x3, not in any acute distress. Well developed, well nourished. HEENT: Pupils are round and equally reacting to light. EOMI. No scleral icterus. No conjunctival pallor. Normocephalic, atraumatic. No pharyngeal erythema. No thyromegaly. CARDIOVASCULAR: S1 and S2 present. No murmurs, rubs, or gallops. PULMONARY: Chest is clear to auscultation, no wheezing , no crackles. ABDOMEN: Soft, nontender, nondistended, normoactive bowel sounds. No palpable organomegaly. MUSCULOSKELETAL: No joint swelling or deformity. EXTREMITIES: No cyanosis, clubbing, or pedal edema. NEUROLOGICAL: Gross neurological examination did not reveal any focal deficits. SKIN: No rashes. no petechiae. - Labs CBC & Chem 7: 08/26/23 10:56 08/27/23 07:45 Labs: Abnormal Lab Results - Last 24 Hours (Table) 08/26/23 08/26/23 08/26/23 Range/Units 10:56 10:56 19:43 Sodium 134 L (137-145) mmol/L BUN 7 L (9-20) mg/dL Creatinine 0.65 L (0.66-1.25) mg/dL Glucose 104 H (74-99) mg/dL Calcium (8.4-10.2) mg/dL Urine Osmolality 178 L (400-1100) mOsm/kg Ur Random Sodium <20 L (40-220) mmol/L 08/26/23 08/27/23 08/27/23 Range/Units 23:34 01:20 04:37 Sodium 134 L 133 L 133 L (137-145) mmol/L BUN 6 L 6 L 6 L (9-20) mg/dL Creatinine 0.64 L 0.63 L (0.66-1.25) mg/dL Glucose 111 H 110 H 101 H (74-99) mg/dL Calcium 8.3 L 8.3 L 8.3 L (8.4-10.2) mg/dL Urine Osmolality (400-1100) mOsm/kg Ur Random Sodium (40-220) mmol/L 08/27/23 Range/Units 07:45 Sodium 134 L (137-145) mmol/L BUN 5 L (9-20) mg/dL Creatinine 0.61 L (0.66-1.25) mg/dL Glucose 101 H (74-99) mg/dL Calcium 8.3 L (8.4-10.2) mg/dL Urine Osmolality (400-1100) mOsm/kg Ur Random Sodium (40-220) mmol/L Microbiology - Last 24 Hours (Table) 08/26/23 12:15 Blood Culture Gram Stain - Preliminary Blood Assessment and Plan Assessment: hyponatremia, mildly hypovolemic or euvolemic, Acute urinary tract infection Neck pain, most likely musculoskeletal, no evidence of neurological deficits. Currently completely resolved Schizophrenia, paranoid type, not active issue currently General weakness secondary to above History of Parkinson disease Hyperlipidemia Hypertension History of schizophrenia Plan: Patient received normal saline 1 L in emergency room. After that no more normal saline was given for him however his Sodium went up to 134 and patient was started on D5 Radhames at 100 mL and then increased to 150 and currently at 200 mL per hour Sodium has been stable and monitored closely. Nephrology input is appreciated Start ceftriaxone follow-up urine culture Infectious disease and nephrology consult Patient advised the need to see a psychiatrist currently. And he looks, and reasonable prep we will keep close monitoring Labs and medication were reviewed.. Continue same treatment. Continue with symptomatic treatment. Resume home medication. Monitor labs and vitals. DVT and GI prophylaxis. Further recommendations as per clinical course of the patient DVT prophylaxis: Subcutaneous heparin GI Prophylaxis: Pepcid PT/OT: Pending Prognosis is guarded
[2023-08-27] MEDS: SODIUM CHLORIDE 0.9% 1,000 ML IV SCH (14:23)
--- NOTE | 2023-08-27 14:45 | P.PN ---
Subjective Progress Note Date: 08/27/23 Principal diagnosis: Reason for follow-up is UTI and positive blood culture Patient is a 67-year-old male with a past medical history significant for hypertension hyperlipidemia [place] did have a history of renal cancer, patient presenting to the ER for evaluation of not feeling well and did have some screaming episode along with some mental status changes, patient apparently also noticed some blood in the urine and the positive UA concerning for symptomatic urinary tract infection. On today's evaluation that is 08/27/2023, patient remains to be afebrile, the patient is breathing comfortably on room air denies any chest pain shortness of breath or cough no nausea vomiting no abdominal pain no diarrhea has been reported Patient did have a creatinine of 0.61 blood culture with staph epi Objective - Vital Signs Vital signs: Vital Signs Temp 97 F L 08/27/23 07:29 Pulse 97 08/27/23 07:29 Resp 16 08/27/23 07:29 BP 107/62 08/27/23 07:29 Pulse Ox 98 08/27/23 07:29 FiO2 Intake & Output 08/26/23 08/27/23 08/27/23 18:59 06:59 18:59 Output Total 1869 1450 900 Balance -1869 -1450 -900 Weight 88.451 kg Output: Urine 1400 1450 900 Post Void Residual 469 Other: Voiding Method Toilet Urinal Urinal Urinal # Voids 1 - Exam GENERAL DESCRIPTION: An elderly male lying in bed in no distress RESPIRATORY SYSTEM: Unlabored breathing , decreased breath sounds at bases HEART: S1 S2 regular rate and rhythm , ABDOMEN: Soft , no tenderness EXTREMITIES: No edema feet - Labs CBC & Chem 7: 08/26/23 10:56 08/27/23 12:27 Labs: Abnormal Lab Results - Last 24 Hours (Table) 08/26/23 08/26/23 08/26/23 Range/Units 10:56 10:56 19:43 Sodium 134 L (137-145) mmol/L BUN 7 L (9-20) mg/dL Creatinine 0.65 L (0.66-1.25) mg/dL Glucose 104 H (74-99) mg/dL Calcium (8.4-10.2) mg/dL Urine Osmolality 178 L (400-1100) mOsm/kg Ur Random Sodium <20 L (40-220) mmol/L 08/26/23 08/27/23 08/27/23 Range/Units 23:34 01:20 04:37 Sodium 134 L 133 L 133 L (137-145) mmol/L BUN 6 L 6 L 6 L (9-20) mg/dL Creatinine 0.64 L 0.63 L (0.66-1.25) mg/dL Glucose 111 H 110 H 101 H (74-99) mg/dL Calcium 8.3 L 8.3 L 8.3 L (8.4-10.2) mg/dL Urine Osmolality (400-1100) mOsm/kg Ur Random Sodium (40-220) mmol/L 08/27/23 Range/Units 07:45 Sodium 134 L (137-145) mmol/L BUN 5 L (9-20) mg/dL Creatinine 0.61 L (0.66-1.25) mg/dL Glucose 101 H (74-99) mg/dL Calcium 8.3 L (8.4-10.2) mg/dL Urine Osmolality (400-1100) mOsm/kg Ur Random Sodium (40-220) mmol/L Microbiology - Last 24 Hours (Table) 08/26/23 12:15 Blood Culture Gram Stain - Preliminary Blood Assessment and Plan (1) Bacteremia Current Visit: Yes Status: Acute Code(s): R78.81 - BACTEREMIA SNOMED Code(s): 7975233 (2) UTI (urinary tract infection) Current Visit: Yes Status: Acute Priority: Medium Code(s): N39.0 - URINARY TRACT INFECTION, SITE NOT SPECIFIED SNOMED Code(s): 78608387 Plan: 1patient presented to the hospital with some mental status changes did have urinary symptoms positive UA concerning for a symptomatic UTI likely from enteric gram-negative pathogen 2-patient to continue with Rocephin while waiting for the culture to finalize, check an ultrasound of the kidney and bladder area 3-positive blood culture with staph epi more likely skin contamination we will repeat blood culture to document clearance no need for vancomycin Dictation was produced using [employer] dictation software. please excuse any grammatical, word or spelling errors. Time with Patient: Less than 30
[2023-08-27 17:31] LABS: African American GFR (CKD) >90 (>60 ml/min/1.73 sqM); Anion Gap 6 mmol/L; Blood Urea Nitrogen 6 mg/dL (9-20); Calcium 8.5 mg/dL (8.4-10.2); Carbon Dioxide 28 mmol/L (22-30); Chloride 97 mmol/L (98-107); Glucose 92 mg/dL (74-99); Non-African American GFR(CKD) >90 (>60 ml/min/1.73 sqM); Potassium 4.2 mmol/L (3.5-5.1); Sodium 131 mmol/L (137-145)
[2023-08-27] MEDS: ATORVASTATIN 80 MG TAB PO SCH (18:16)
[2023-08-27] MEDS: amLODIPine 5 MG TAB PO SCH (18:16)
[2023-08-27] MEDS: TAMSULOSIN 0.4 MG CAP.ER.24H PO SCH (18:17)
--- NOTE | 2023-08-27 20:22 | US ---
EXAMINATION TYPE: US kidneys/renal and bladder DATE OF EXAM: 08/27/2023 COMPARISON: 06/17/2023 CLINICAL INDICATION: Male, 67 years old with history of uti and bacteremia; UTI EXAM MEASUREMENTS: Right Kidney: 12.3 x 4.4 x 4.7 cm Left Kidney: 14.3 x 6.1 x 5.5 cm Right Kidney: No evidence of hydro Left Kidney: No evidence of hydronephrosis. Bladder: Partial distention limits evaluation. Bladder wall appears irregular/trabeculated. Bilateral Jets seen: No IMPRESSION: 1. No hydronephrosis on either side. 2. Markedly trabeculated appearance to the bladder wall. Query any symptoms of chronic bladder outlet obstruction.
[2023-08-27] MEDS: FAMOTIDINE 20 MG TAB PO SCH (21:07)
[2023-08-28] MEDS: cloZAPine 100 MG TAB PO SCH ×3 (07:53→20:32)
[2023-08-28] MEDS: ASPIRIN 81 MG PO SCH (07:53)
[2023-08-28] MEDS: DULoxetine HCL 60 MG CAPSULE.DR PO SCH (07:53)
[2023-08-28] MEDS: HEPARIN SODIUM,PORCINE 5,000 UNIT/ML 1 ML VIAL SQ SCH ×2 (07:54→20:32)
[2023-08-28] MEDS: CLOPIDOGREL 75 MG TAB PO SCH (07:54)
[2023-08-28] MEDS: METOPROLOL TARTRATE 25 MG TAB PO SCH ×2 (07:54→20:33)
[2023-08-28] MEDS: CARBIDOPA-LEVODOPA 25-100 MG 1 EACH TAB PO SCH ×4 (07:54→20:32)
[2023-08-28] MEDS: clonazePAM 0.5 MG TAB PO SCH ×2 (07:54→20:32)
[2023-08-28] MEDS: FAMOTIDINE 20 MG TAB PO SCH ×2 (07:54→20:33)
--- NOTE | 2023-08-28 10:54 | P.PN ---
Subjective Patient is seen in follow-up for hyponatremia. Sodium level 131 as of last night. He did receive D5W yesterday to slow the rapid correction. Currently off IV fluids. Oral intake is good. Vital signs are stable. General: No acute distress. HEENT: Head exam is unremarkable. LUNGS: No audible rhonchi or wheezes. HEART: Rate and Rhythm are regular. ABDOMEN: Nontender. EXTREMITITES: No edema. Objective - Vital Signs Vital signs: Vital Signs Temp 97.7 F 08/28/23 07:19 Pulse 68 08/28/23 07:19 Resp 16 08/28/23 07:19 BP 128/83 08/28/23 07:19 Pulse Ox 98 08/28/23 07:19 FiO2 Intake & Output 08/27/23 08/28/23 08/28/23 18:59 06:59 18:59 Output Total 1300 850 275 Balance -1300 -850 -275 Output: Urine 1300 850 275 Other: Voiding Method Urinal Toilet Toilet Urinal Urinal # Voids 1 1 1 - Labs CBC & Chem 7: 08/26/23 10:56 08/27/23 17:05 Labs: Abnormal Lab Results - Last 24 Hours (Table) 08/27/23 08/27/23 08/27/23 Range/Units 12:27 14:14 17:05 Sodium 132 L 132 L 131 L (137-145) mmol/L Chloride 97 L (98-107) mmol/L BUN 6 L (9-20) mg/dL Microbiology - Last 24 Hours (Table) 08/26/23 12:15 Blood Culture Gram Stain - Preliminary Blood Blood Culture - Preliminary Coagulase Negative Staph Assessment and Plan Plan: Assessment: 1. Hypovolemic hyponatremia. Also component of poor solute intake. Sodium level 131 as of last night. Status post D5W to slow rapid correction. TSH normal. Urine sodium less than 20 and urine osmolality 178. 2. History of schizophrenia. 3. UTI on antibiotics. Blood culture positive for coag negative staph. 4. Benign hypertension. Controlled. Plan: Follow-up morning labs. Encouraged oral intake.
[2023-08-28 11:45] LABS: BUN/Creat Ratio 7.78 Ratio (12.00-20.00); Calcium 9.1 mg/dL (8.7-10.3); Carbon Dioxide 27.8 mmol/L (21.6-31.8); Chloride 98 mmol/L (96-109); Glucose 92 mg/dL (70-110); Magnesium 2.4 mg/dL (1.5-2.4); Potassium 4.7 mmol/L (3.5-5.5); Sodium 135 mmol/L (135-145)
[2023-08-28] MEDS: SODIUM CHLORIDE 0.9% 1,000 ML IV SCH (11:51)
--- NOTE | 2023-08-28 12:44 | P.PN ---
Subjective Progress Note Date: 08/28/23 Principal diagnosis: Reason for follow-up is UTI and positive blood culture Patient is a 67-year-old male with a past medical history significant for hypertension hyperlipidemia [place] did have a history of renal cancer, patient presenting to the ER for evaluation of not feeling well and did have some screaming episode along with some mental status changes, patient apparently also noticed some blood in the urine and the positive UA concerning for symptomatic urinary tract infection. On today's evaluation that is 08/28/2023, the patient continues to be afebrile patient is currently breathing comfortably on room air not requiring any oxygen, the patient denies having any chest pain shortness of breath or cough, the patient denies nausea vomiting no abdominal pain no diarrhea. Patient did have a creatinine 0.9, blood cultures with coagulase-negative staph urine culture unfortunately not done Objective - Vital Signs Vital signs: Vital Signs Temp 97.7 F 08/28/23 07:19 Pulse 68 08/28/23 07:19 Resp 16 08/28/23 07:19 BP 128/83 08/28/23 07:19 Pulse Ox 98 08/28/23 07:19 FiO2 Intake & Output 08/27/23 08/28/23 08/28/23 18:59 06:59 18:59 Output Total 1300 850 275 Balance -1300 -850 -275 Output: Urine 1300 850 275 Other: Voiding Method Urinal Toilet Toilet Urinal Urinal # Voids 1 1 1 - Exam GENERAL DESCRIPTION: An elderly male lying in bed in no distress RESPIRATORY SYSTEM: Unlabored breathing , decreased breath sounds at bases HEART: S1 S2 regular rate and rhythm , ABDOMEN: Soft , no tenderness EXTREMITIES: No edema feet - Labs CBC & Chem 7: 08/26/23 10:56 08/28/23 06:48 Labs: Abnormal Lab Results - Last 24 Hours (Table) 08/27/23 08/27/23 08/27/23 Range/Units 12:27 14:14 17:05 Sodium 132 L 132 L 131 L (137-145) mmol/L Chloride 97 L (98-107) mmol/L BUN 6 L (9-20) mg/dL BUN/Creatinine Ratio (12.00-20.00) Ratio 08/28/23 Range/Units 06:48 Sodium (137-145) mmol/L Chloride (98-107) mmol/L BUN 7.0 L (9-20) mg/dL BUN/Creatinine Ratio 7.78 L (12.00-20.00) Ratio Microbiology - Last 24 Hours (Table) 08/26/23 12:15 Blood Culture Gram Stain - Preliminary Blood Blood Culture - Preliminary Coagulase Negative Staph Assessment and Plan (1) Bacteremia Current Visit: Yes Status: Acute Code(s): R78.81 - BACTEREMIA SNOMED Code(s): 6210585 (2) UTI (urinary tract infection) Current Visit: Yes Status: Acute Priority: Medium Code(s): N39.0 - URINARY TRACT INFECTION, SITE NOT SPECIFIED SNOMED Code(s): 39901819 Plan: 1patient presented to the hospital with some mental status changes did have urinary symptoms positive UA concerning for a symptomatic UTI likely from enteric gram-negative pathogen 2-positive blood culture with staph epi more likely skin contamination, blood culture has been repeated to document clearance no need for vancomycin 3-patient has shown clinical improvement on Rocephin unfortunately no urine cultures were done plan will be for oral Ceftin on discharge Dictation was produced using [employer] dictation software. please excuse any grammatical, word or spelling errors. Time with Patient: Less than 30
[2023-08-28] MEDS ORDERED: ACETAMINOPHEN TAB 325 MG TAB PO PRN (14:17)
[2023-08-28] MEDS: amLODIPine 5 MG TAB PO SCH (20:32)
[2023-08-28] MEDS: ATORVASTATIN 80 MG TAB PO SCH (20:32)
[2023-08-28] MEDS: TAMSULOSIN 0.4 MG CAP.ER.24H PO SCH (20:33)
[2023-08-29] MEDS: ASPIRIN 81 MG PO SCH (08:24)
[2023-08-29] MEDS: CARBIDOPA-LEVODOPA 25-100 MG 1 EACH TAB PO SCH ×2 (08:24→11:59)
[2023-08-29] MEDS: DULoxetine HCL 60 MG CAPSULE.DR PO SCH (08:25)
[2023-08-29] MEDS: HEPARIN SODIUM,PORCINE 5,000 UNIT/ML 1 ML VIAL SQ SCH (08:25)
[2023-08-29] MEDS: METOPROLOL TARTRATE 25 MG TAB PO SCH (08:25)
[2023-08-29] MEDS: FAMOTIDINE 20 MG TAB PO SCH (08:25)
[2023-08-29] MEDS: CLOPIDOGREL 75 MG TAB PO SCH (08:25)
[2023-08-29] MEDS: clonazePAM 0.5 MG TAB PO SCH (08:25)
[2023-08-29] MEDS: cloZAPine 100 MG TAB PO SCH (08:26)
[2023-08-29 09:05] LABS: African American GFR (CKD) >90 (>60 ml/min/1.73 sqM); Anion Gap 7 mmol/L; Blood Urea Nitrogen 12 mg/dL (9-20); Calcium 9.1 mg/dL (8.4-10.2); Carbon Dioxide 25 mmol/L (22-30); Chloride 102 mmol/L (98-107); Glucose 99 mg/dL (74-99); Magnesium 2.2 mg/dL (1.6-2.3); Non-African American GFR(CKD) >90 (>60 ml/min/1.73 sqM); Potassium 4.6 mmol/L (3.5-5.1); Sodium 134 mmol/L (137-145)
--- NOTE | 2023-08-29 11:23 | P.PN ---
Subjective Progress Note Date: 08/29/23 Patient is seen in follow-up for hyponatremia. Feeling well and no new complaints. Eating and drinking without issue. Vital signs are stable. General: No acute distress. HEENT: Head exam is unremarkable. LUNGS: No audible rhonchi or wheezes. HEART: Rate and Rhythm are regular. ABDOMEN: Nontender. EXTREMITITES: No edema. Objective - Vital Signs Vital signs: Vital Signs Temp 98.1 F 08/29/23 07:45 Pulse 73 08/29/23 07:45 Resp 16 08/29/23 07:45 BP 122/72 08/29/23 07:45 Pulse Ox 100 08/29/23 07:45 FiO2 Intake & Output 08/28/23 08/29/23 08/29/23 18:59 06:59 18:59 Intake Total 490 240 Output Total 1275 Balance -1275 490 240 Intake: Oral 490 240 Output: Urine 1275 Other: Voiding Method Toilet Urinal Urinal Urinal Diaper Incontinent # Voids 1 1 - Labs CBC & Chem 7: 08/26/23 10:56 08/29/23 07:27 Labs: Abnormal Lab Results - Last 24 Hours (Table) 08/28/23 08/29/23 Range/Units 06:48 07:27 Sodium 134 L (137-145) mmol/L BUN 7.0 L (9.0-27.0) mg/dL BUN/Creatinine Ratio 7.78 L (12.00-20.00) Ratio Microbiology - Last 24 Hours (Table) 08/27/23 12:44 Blood Culture - Preliminary Blood 08/26/23 12:15 Blood Culture Gram Stain - Preliminary Blood Blood Culture - Preliminary Coagulase Negative Staph Assessment and Plan Plan: Assessment: 1. Hypovolemic hyponatremia. Also component of poor solute intake. Sodium level 134 today. TSH normal. Urine sodium less than 20 and urine osmolality 178. 2. History of schizophrenia. 3. UTI on antibiotics. Blood culture positive for coag negative staph. 4. Benign hypertension. Controlled. Plan: Sodium level now stable for discharge. Encourage continue PO intake
[2023-08-29] MEDS: SODIUM CHLORIDE 0.9% 1,000 ML IV SCH (11:59)
[2023-08-29 14:37] VITALS: BP 126/79; PULSE 61; RESP 17; TEMP 98.4
--- NOTE | 2023-08-30 18:00 | P.PN ---
Subjective Progress Note Date: 08/28/23 67 years old male with multiple medical problems as below Patient presents because of neck pain 7 days and he woke up with this pain this morning felt like 8 and 9/10 in severity, and down to 7/10 The pain is nonradiating and associated with mild tenderness in the back of the neck with no restriction of movement. Patient can move his head and neck from side to side and he can touch his chin. No obvious neurological deficit with no weakness or numbness. Patient has chronic tingling in his both toes for about 3-4 months. Also he has difficulty standingom sitting position. But this is chronic problem going on for a few months to continue. Also patient was complaining of from increased frequency of urination and urgency, yesterday he went himself. He drinks a lot of water from a specific reason probably because of his previous UTIs is been told to drink water. He denies nausea vomiting or diarrhea. No abdominal pain. No dysuria. No denuded dizziness. He denies smoking alcohol or illicit tracts. vitals are stable Hemoglobin 10.4 Sodium 122 Breast flaps were unremarkable EKG showed normal sinus rhythm at [address]-T changes Cervical x-rays negative for acute process Influenza A and type B, RSV, SARS (coronavirus) are and detected patient received ceftriaxone in ER and 1 L of normal saline Objective - Vital Signs Vital signs: Vital Signs Temp 97.7 F 08/28/23 07:19 Pulse 68 08/28/23 07:19 Resp 16 08/28/23 07:19 BP 128/83 08/28/23 07:19 Pulse Ox 98 08/28/23 07:19 FiO2 Intake & Output 08/27/23 08/28/23 08/28/23 18:59 06:59 18:59 Output Total 1300 850 275 Balance -1300 850 -275 Output: Urine 1300 850 275 Other: Voiding Method Urinal Toilet Toilet Urinal Urinal # Voids 1 1 1 - Exam - Constitutional General appearance: Present: average body habitus, cooperative, no acute distress - EENT Eyes: Present: anicteric sclerae, EOMI, PERRLA, normal appearance ENT: Present: hearing grossly normal, normal oropharynx Ears: bilateral: normal - Neck Neck: Present: normal ROM. Absent: lymphadenopathy, rigidity, thyromegaly Carotids: negative: bruit present Thyroid: bilateral: normal size, negative: enlarged, nodule - Respiratory Respiratory: bilateral: CTA, negative: rales, rhonchi, wheezing - Cardiovascular Rhythm: regular Heart sounds: normal: S1, S2 Abnormal Heart Sounds: Absent: systolic murmur, diastolic murmur - Gastrointestinal General gastrointestinal: Present: normal bowel sounds, soft. Absent: distended, organomegaly, tenderness - Genitourinary Genitourinary Comment(s): deferred - Integumentary Integumentary: Present: normal turgor. Absent: jaundiced, rash, ulcer - Neurologic Neurologic: Present: CNII-XII intact. Absent: focal deficits - Musculoskeletal Musculoskeletal: Present: gait normal, strength equal bilaterally - Psychiatric Psychiatric: Present: A&O x's 3, appropriate affect, intact judgment & insight - Labs CBC & Chem 7: 08/26/23 10:56 08/29/23 07:27 Labs: Abnormal Lab Results - Last 24 Hours (Table) 08/27/23 08/27/23 08/27/23 Range/Units 12:27 14:14 17:05 Sodium 132 L 132 L 131 L (137-145) mmol/L Chloride 97 L (98-107) mmol/L BUN 6 L (9-20) mg/dL BUN/Creatinine Ratio (12.00-20.00) Ratio 08/28/23 Range/Units 06:48 Sodium (137-145) mmol/L Chloride (98-107) mmol/L BUN 7.0 L (9-20) mg/dL BUN/Creatinine Ratio 7.78 L (12.00-20.00) Ratio Microbiology - Last 24 Hours (Table) 08/26/23 12:15 Blood Culture Gram Stain - Preliminary Blood Blood Culture - Preliminary Coagulase Negative Staph Assessment and Plan Assessment: hyponatremia, mildly hypovolemic or euvolemic, Acute urinary tract infection Neck pain, most likely musculoskeletal, no evidence of neurological deficits. Currently completely resolved Schizophrenia, paranoid type, not active issue currently General weakness secondary to above History of Parkinson disease Hyperlipidemia Hypertension History of schizophrenia Plan: Patient received normal saline 1 L in emergency room. After that no more normal saline was given for him however his Sodium went up to 134 and patient was started on D5 Radhames at 100 mL and then increased to 150 and currently at 200 mL per hour Sodium has been stable and monitored closely. Nephrology input is appreciated Start ceftriaxone follow-up urine culture Infectious disease and nephrology consult Patient advised the need to see a psychiatrist currently. And he looks, and reasonable prep we will keep close monitoring Labs and medication were reviewed.. Continue same treatment. Continue with symptomatic treatment. Resume home medication. Monitor labs and vitals. DVT and GI prophylaxis. Further recommendations as per clinical course of the patient DVT prophylaxis: Subcutaneous heparin GI Prophylaxis: Pepcid PT/OT: Pending Prognosis is guarded
== END 2023-08-29 15:12 | disposition home or self-care (01) | DRG 690 ==
LOC: EC 09:23 → 1SOBS 12:45 → 5NMEDONC 08-27 16:18
PROVIDERS: ADMIT Hospitalist; ATTEND Hospitalist
DX: N39.0 Urinary tract infection, site not specified (principal); E87.1 Hypo-osmolality and hyponatremia; F20.0 Paranoid schizophrenia; G20.A1 Parkinson's disease without dyskinesia, without mention of fluctuations; I10 Essential (primary) hypertension; E86.1 Hypovolemia; E78.5 Hyperlipidemia, unspecified; F32.A Depression, unspecified; F41.0 Panic disorder [episodic paroxysmal anxiety]; M54.2 Cervicalgia; M40.292 Other kyphosis, cervical region; K59.00 Constipation, unspecified; R31.9 Hematuria, unspecified; I25.2 Old myocardial infarction; Z79.82 Long term (current) use of aspirin; Z79.02 Long term (current) use of antithrombotics/antiplatelets; Z79.899 Other long term (current) drug therapy; Z91.51 Personal history of suicidal behavior; Z85.528 Personal history of other malignant neoplasm of kidney; Z87.440 Personal history of urinary (tract) infections; Z95.0 Presence of cardiac pacemaker; Z95.5 Presence of coronary angioplasty implant and graft
CPT/HCPCS: 36415; 72050; 76770; 80048; 80053; 81001; 83605; 83735; 83930; 83935; 84295; 84300; 84443; 85025; 87040; 87077; 87186; 87636; 93005; 96361; 96374; 96375; 99285

== ENCOUNTER 2023-09-11 11:55 | Inpatient (IN) | payer OTHER, MEDICARE ==
--- NOTE | 2023-09-11 12:22 | ED ---
Recheck HPI - General Source: patient, RN notes reviewed Mode of arrival: wheelchair Limitations: no limitations - History of Present Illness MD Complaint: abnormal lab <Liz Yarbrough - Last Filed: 09/11/23 12:20> <Nohemi Christy - Last Filed: 09/14/23 12:33> - General Chief Complaint: Recheck/Abnormal Lab/Rx Stated Complaint: Critically low sodium and chloride Time Seen by Provider: 09/11/23 12:18 - History of Present Illness Initial Comments: This is a 67-year-old male who presents to the emergency department for low sodium levels. Patient was at the [facility] yesterday and had blood work done. He received a call saying that his sodium was critically low and he needed to come to the apartment. Patient states that he currently feels fine and has no complaints otherwise. He was just discharged from the hospital and his states that he had low sodium then as well. (Liz Yarbrough) 67-year-old male presents to the emergency department for evaluation of hyponatremia. Patient and his sister state that he had blood work drawn yesterday at the [facility], he was called today and told to come in for evaluation as his sodium was critically low. He denies current symptoms of chest pain, shortness of breath, urinary symptoms, nausea, vomiting. He is typically incontinent. Patient was admitted about 2 weeks ago for low sodium. Sister states they are unsure of the cause. She reports that the patient was drinking an excessive amount of water at that time. He was told to cut back but she is unsure if he has. Sister is his legal guardian. (Nohemi Christy) - Related Data Home Medications Medication Instructions Recorded Confirmed Omeprazole 40 mg PO DAILY@1500 12/09/20 09/11/23 Aspirin 81 mg PO DAILY@0700 07/28/21 09/11/23 cloZAPine [Clozaril] 300 mg PO HS@1900 02/03/22 09/11/23 Atorvastatin [Lipitor] 80 mg PO HS@1900 07/04/22 09/11/23 Clopidogrel [Plavix] 75 mg PO DAILY@0700 07/04/22 09/11/23 cloZAPine [Clozaril] 200 mg PO BID@0700,1500 07/04/22 09/11/23 clonazePAM [KlonoPIN] 0.5 mg PO BID@0700,1900 11/11/22 09/11/23 Carbidopa-Levodopa 25-100 mg 1 tab PO QID@07,11,15,19 05/31/23 09/11/23 [Sinemet 25-100 mg] DULoxetine HCL [Cymbalta] 60 mg PO DAILY@0700 05/31/23 09/11/23 Tamsulosin [Flomax] 0.4 mg PO HS@1900 05/31/23 09/11/23 Sennosides/Docusate Sodium [Senna 1 tab PO TID PRN 06/14/23 09/11/23 Plus 8.6-50 mg Tablet] Previous Rx's Medication Instructions Recorded Midodrine [ProAmatine] 2.5 mg PO BID-W/MEALS #30 tab 09/13/23 Allergies Allergy/AdvReac Type Severity Reaction Status Date / Time No Known Allergies Allergy Verified 09/11/23 18:22 Review of Systems ROS Other: All systems not noted in ROS Statement are negative. <Liz Yarbrough - Last Filed: 09/11/23 12:20> ROS Other: All systems not noted in ROS Statement are negative. <Nohemi Christy - Last Filed: 09/14/23 12:33> ROS Statement: Those systems with pertinent positive or pertinent negative responses have been documented in the HPI. Past Medical History Past Medical History: Hyperlipidemia, Hypertension, Myocardial Infarction (CT) Additional Past Medical History / Comment(s): renal CA with surgery, parkinson's Last Myocardial Infarction Date:: unknown History of Any Multi-Drug Resistant Organisms: None Reported Past Surgical History: Heart Catheterization With Stent, Orthopedic Surgery Additional Past Surgical History / Comment(s): cryoablation for renal CA, Heart Catheterization 04/23/2021, Past Anesthesia/Blood Transfusion Reactions: No Reported Reaction Date of Last Stent Placement:: 04/23/21 Type of Cardiac Device: Biventricular Pacemaker, Unknown Device Placement Date:: unknown Past Psychological History: Depression, Panic Disorder, Schizophrenia Smoking Status: Never smoker Past Alcohol Use History: None Reported Past Drug Use History: None Reported - Past Family History Family Family Medical History: No Reported History <Liz Yarbrough - Last Filed: 09/11/23 12:20> General Exam Limitations: no limitations <Liz Yarbrough - Last Filed: 09/11/23 12:20> Limitations: no limitations General appearance: alert, in no apparent distress Head exam: Present: atraumatic, normocephalic, normal inspection Eye exam: Present: normal appearance, PERRL, EOMI. Absent: scleral icterus, conjunctival injection, periorbital swelling ENT exam: Present: normal exam, mucous membranes moist Neck exam: Present: normal inspection. Absent: tenderness, meningismus, lymphadenopathy Respiratory exam: Present: normal lung sounds bilaterally. Absent: respiratory distress, wheezes, rales, rhonchi, stridor Cardiovascular Exam: Present: regular rate, normal rhythm, normal heart sounds. Absent: systolic murmur, diastolic murmur, rubs, gallop, clicks Extremities exam: Present: normal inspection, full ROM, normal capillary refill. Absent: tenderness, pedal edema, joint swelling, calf tenderness Back exam: Present: normal inspection Neurological exam: Present: alert, oriented X3 Psychiatric exam: Present: normal affect, normal mood Skin exam: Present: warm, dry, intact, normal color. Absent: rash <Nohemi Christy - Last Filed: 09/14/23 12:33> - General Exam Comments Initial Comments: Visual Physical Exam Vital signs reviewed General: Well-appearing, nontoxic, no acute distress. Head: Normocephalic, atraumatic Eyes: PERRLA, EOMI ENT: Airway patent Chest: Nonlabored breathing Skin: No visual rash, normal skin tone Neuro: Alert and oriented 3 Musculoskeletal: No gross abnormalities (Liz Yarbrough) Course Vital Signs 09/11/23 09/11/23 09/11/23 12:05 16:39 17:53 Temperature 98.1 F Pulse Rate 64 75 75 Pulse Rate [ 75 Instrument Lens Generator ] Respiratory 18 18 18 Rate Blood Pressure 98/61 146/86 131/88 O2 Sat by Pulse 99 96 96 Oximetry 09/11/23 09/11/23 09/11/23 19:02 19:42 20:30 Temperature Pulse Rate 76 74 71 Pulse Rate [ Instrument Lens Generator ] Respiratory 18 13 13 Rate Blood Pressure 117/96 114/62 O2 Sat by Pulse 96 98 96 Oximetry 09/11/23 09/11/23 21:30 22:30 Temperature Pulse Rate 84 68 Pulse Rate [ Instrument Lens Generator ] Respiratory 14 13 Rate Blood Pressure 133/82 149/90 O2 Sat by Pulse 95 95 Oximetry Medical Decision Making <Liz Yarbrough - Last Filed: 09/11/23 12:20> - Lab Data Result diagrams: 09/11/23 12:35 09/12/23 09:35 <MalissaleticiaNohemi - Last Filed: 09/14/23 12:33> - Medical Decision Making I performed the QuickNote portion of this chart. Signed Liz Yarbrough PA-C. (Liz Yarbrough) Was pt. sent in by a medical professional or institution (LEANNE Glaser, SENIOR MATERIALS ANALYST, urgent care, hospital, or snf...) When possible be specific @ -[facility] sent in for hyponatremia Did you speak to anyone other than the patient for history (EMS, parent, family, police, friend...)? What history was obtained from this source @ -Patient's sister provided some of the history for this patient Did you review nursing and triage notes (agree or disagree)? Why? @ -I reviewed and agree with nursing and triage notes Were old charts reviewed (outside hosp., previous admission, EMS record, old EKG, old radiological studies, urgent care reports/EKG's, snf records)? Report findings @ -Charts from prior hospital admission reviewed Differential Diagnosis (chest pain, altered mental status, abdominal pain women, abdominal pain men, vaginal bleeding, weakness, fever, dyspnea, syncope, headache, dizziness, GI bleed, back pain, seizure, CVA, palpatations, mental health, musculoskeletal)? @ -Differential Weakness: Hypoglycemia, shock, sepsis, hyponatremia, anemia, infection, CT, ETOH, adverse medicine reaction, overdose, stroke, this is not meant to be an all-inclusive list. EKG interpreted by me (3pts min.). @ -EKG at 1545 shows sinus rhythm rate 76, LA 161, QRS 94 X-rays interpreted by me (1pt min.). @ -None done CT interpreted by me (1pt min.). @ -None done U/S interpreted by me (1pt. min.). @ -None done What testing was considered but not performed or refused? (CT, X-rays, U/S, labs)? Why? @ -None What meds were considered but not given or refused? Why? @ -None Did you discuss the management of the patient with other professionals (professionals i.e. , PA, SENIOR MATERIALS ANALYST, lab, RT, psych nurse, home health care social worker, manager strategic partnerships, teacher, conservation enforcement officer, case folder)? Give summary @ -Management discussed with Dr. Hardy with [facility] who is accepting of the admission Was smoking cessation discussed for >3mins.? @ -No Was critical care preformed (if so, how long)? @ -No Were there social determinants of health that impacted care today? How? (Homelessness, low income, unemployed, alcoholism, drug addiction, transportation, low edu. Level, literacy, decrease access to med. care, nursing home, rehab)? @ -No Was there de-escalation of care discussed even if they declined (Discuss DNR or withdrawal of care, Hospice)? DNR status @ -No What co-morbidities impacted this encounter? (DM, HTN, Smoking, COPD, CAD, Cancer, CVA, ARF, Chemo, Hep., AIDS, mental health diagnosis, sleep apnea, morbid obesity)? @ -None Was patient admitted / discharged? Hospital course, mention meds given and route, prescriptions, significant lab abnormalities, going to OR and other pertinent info. @ -Admitted. Patient presented to the emergency department for evaluation of low sodium. He was sent in by the [facility] for this. Laboratory studies obtained which show hyponatremia With sodium 121, chloride 91; UA obtained which shows positive nitrate, negative leukocyte esterase, few urine bacteria. Patient will be admitted for hyponatremia. This is likely due to fluid overconsumption. Case was discussed with Dr. Riggs with [facility] who is accepting of the admission. Patient stable at time of admission. Patient and family understanding agreeable with plan. Case discussed with Dr. Sahni Undiagnosed new problem with uncertain prognosis? @ -No Drug Therapy requiring intensive monitoring for toxicity (Heparin, Nitro, Insulin, Cardizem)? @ -No Were any procedures done? @ -No Diagnosis/symptom? @ -Hyponatremia Acute, or Chronic, or Acute on Chronic? @ -Acute Uncomplicated (without systemic symptoms) or Complicated (systemic symptoms)? @ -Uncomplicated Side effects of treatment? @ -No Exacerbation, Progression, or Severe Exacerbation? @ -No Poses a threat to life or bodily function? How? (Chest pain, USA, CT, pneumonia, PE, COPD, DKA, ARF, appy, cholecystitis, CVA, Diverticulitis, Homicidal, Suicidal, threat to staff... and all critical care pts) @ -No (Nohemi Christy) - Lab Data Lab Results 09/11/23 09/11/23 09/11/23 Range/Units 12:35 12:35 13:47 WBC 8.4 (3.8-10.6) k/uL RBC 3.76 L (4.30-5.90) m/uL Hgb 10.6 L (13.0-17.5) gm/dL Hct 31.3 L (39.0-53.0) % MCV 83.4 (80.0-100.0) fL MCH 28.3 (25.0-35.0) pg MCHC 33.9 (31.0-37.0) g/dL RDW 16.3 H (11.5-15.5) % Plt Count 253 (150-450) k/uL MPV 8.1 Neutrophils % 78 % Lymphocytes % 12 % Monocytes % 7 % Eosinophils % 2 % Basophils % 0 % Neutrophils # 6.6 (1.3-7.7) k/uL Lymphocytes # 1.0 (1.0-4.8) k/uL Monocytes # 0.6 (0-1.0) k/uL Eosinophils # 0.2 (0-0.7) k/uL Basophils # 0.0 (0-0.2) k/uL Anisocytosis Slight Sodium 121 L (137-145) mmol/L Potassium 4.5 (3.5-5.1) mmol/L Chloride 91 L (98-107) mmol/L Carbon Dioxide 25 (22-30) mmol/L Anion Gap 5 mmol/L BUN 7 L (9-20) mg/dL Creatinine 0.68 (0.66-1.25) mg/dL Est GFR (CKD-EPI)AfAm >90 (>60 ml/min/1.73 sqM) Est GFR (CKD-EPI)NonAf >90 (>60 ml/min/1.73 sqM) Glucose 94 (74-99) mg/dL Osmolality (275-295) mOsm/kg Calcium 8.4 (8.4-10.2) mg/dL Phosphorus 4.4 (2.5-4.5) mg/dL Magnesium 1.8 (1.6-2.3) mg/dL Total Bilirubin 0.7 (0.2-1.3) mg/dL AST 27 (17-59) U/L ALT 6 (4-49) U/L Alkaline Phosphatase 72 (38-126) U/L Total Protein 5.7 L (6.3-8.2) g/dL Albumin 3.6 (3.5-5.0) g/dL Cortisol (3.1-22.4) UG/DL Urine Color Light Yellow Urine Appearance Clear (Clear) Urine pH 6.5 (5.0-8.0) Ur Specific [place] 1.004 (1.001-1.035) Urine Protein Negative (Negative) Urine Glucose (UA) Negative (Negative) Urine Ketones Negative (Negative) Urine Blood Negative (Negative) Urine Nitrite Positive (Negative) Urine Bilirubin Negative (Negative) Urine Urobilinogen <2.0 (<2.0) mg/dL Ur Leukocyte Esterase Negative (Negative) Urine RBC 1 (0-5) /hpf Urine WBC <1 (0-5) /hpf Urine Bacteria Few H (None) /hpf Urine Osmolality (400-1100) mOsm/kg Ur Random Sodium (40-220) mmol/L 09/11/23 09/11/23 09/11/23 Range/Units 16:02 16:02 16:02 WBC (3.8-10.6) k/uL RBC (4.30-5.90) m/uL Hgb (13.0-17.5) gm/dL Hct (39.0-53.0) % MCV (80.0-100.0) fL MCH (25.0-35.0) pg MCHC (31.0-37.0) g/dL RDW (11.5-15.5) % Plt Count (150-450) k/uL MPV Neutrophils % % Lymphocytes % % Monocytes % % Eosinophils % % Basophils % % Neutrophils # (1.3-7.7) k/uL Lymphocytes # (1.0-4.8) k/uL Monocytes # (0-1.0) k/uL Eosinophils # (0-0.7) k/uL Basophils # (0-0.2) k/uL Anisocytosis Sodium (137-145) mmol/L Potassium (3.5-5.1) mmol/L Chloride (98-107) mmol/L Carbon Dioxide (22-30) mmol/L Anion Gap mmol/L BUN (9-20) mg/dL Creatinine (0.66-1.25) mg/dL Est GFR (CKD-EPI)AfAm (>60 ml/min/1.73 sqM) Est GFR (CKD-EPI)NonAf (>60 ml/min/1.73 sqM) Glucose (74-99) mg/dL Osmolality 260 L (275-295) mOsm/kg Calcium (8.4-10.2) mg/dL Phosphorus (2.5-4.5) mg/dL Magnesium (1.6-2.3) mg/dL Total Bilirubin (0.2-1.3) mg/dL AST (17-59) U/L ALT (4-49) U/L Alkaline Phosphatase (38-126) U/L Total Protein (6.3-8.2) g/dL Albumin (3.5-5.0) g/dL Cortisol 6.9 (3.1-22.4) UG/DL Urine Color Urine Appearance (Clear) Urine pH (5.0-8.0) Ur Specific [place] (1.001-1.035) Urine Protein (Negative) Urine Glucose (UA) (Negative) Urine Ketones (Negative) Urine Blood (Negative) Urine Nitrite (Negative) Urine Bilirubin (Negative) Urine Urobilinogen (<2.0) mg/dL Ur Leukocyte Esterase (Negative) Urine RBC (0-5) /hpf Urine WBC (0-5) /hpf Urine Bacteria (None) /hpf Urine Osmolality 87 L (400-1100) mOsm/kg Ur Random Sodium <20 L (40-220) mmol/L Disposition <Liz Yarbrough - Last Filed: 09/11/23 12:20> Is patient prescribed a controlled substance at d/c from ED?: No <Nohemi Christy - Last Filed: 09/14/23 12:33> Clinical Impression: Hyponatremia Disposition: ADMITTED IP TO THIS HOSP Condition: Stable
[2023-09-11 12:43] LABS: Anisocytosis Slight; Basophils % (A) 0 %; Eosinophils # (A) 0.2 k/uL (0-0.7); Eosinophils % (A) 2 %; HCT 31.3 % (39.0-53.0); HGB 10.6 gm/dL (13.0-17.5); Lymphocytes % (A) 12 %; MCH 28.3 pg (25.0-35.0); MCHC 33.9 g/dL (31.0-37.0); MCV 83.4 fL (80.0-100.0); Mean Platelet Volume 8.1; Monocytes # (A) 0.6 k/uL (0-1.0); Monocytes % (A) 7 %; Neutrophils # (A) 6.6 k/uL (1.3-7.7); Neutrophils % (A) 78 %; Platelet Count 253 k/uL (150-450); RBC 3.76 m/uL (4.30-5.90); RDW 16.3 % (11.5-15.5); WBC 8.4 k/uL (3.8-10.6)
[2023-09-11 13:03] LABS: Sodium 121 mmol/L (137-145)
[2023-09-11 13:05] LABS: ALT 6 U/L (4-49); AST 27 U/L (17-59); African American GFR (CKD) >90 (>60 ml/min/1.73 sqM); Albumin 3.6 g/dL (3.5-5.0); Alkaline Phosphatase 72 U/L (38-126); Anion Gap 5 mmol/L; Blood Urea Nitrogen 7 mg/dL (9-20); Calcium 8.4 mg/dL (8.4-10.2); Carbon Dioxide 25 mmol/L (22-30); Chloride 91 mmol/L (98-107); Glucose 94 mg/dL (74-99); Magnesium 1.8 mg/dL (1.6-2.3); Non-African American GFR(CKD) >90 (>60 ml/min/1.73 sqM); Phosphorus 4.4 mg/dL (2.5-4.5); Potassium 4.5 mmol/L (3.5-5.1); Total Bilirubin 0.7 mg/dL (0.2-1.3); Total Protein 5.7 g/dL (6.3-8.2)
[2023-09-11 13:56] LABS: Appearance,Urine Clear (Clear); Bacteria,Urine Few /hpf; Bilirubin,Urine Negative (Negative); Blood,Urine Negative (Negative); Color,Urine Light Yellow; Glucose,Urine (UA) Negative (Negative); Ketones,Urine Negative (Negative); Leukocyte Esterase,Urine Negative (Negative); Nitrite,Urine Positive (Negative); PH, Urine 6.5 (5.0-8.0); Protein,Urine Negative (Negative); RBC,Urine 1 /hpf (0-5); Specific Gravity,Urine 1.004 (1.001-1.035); Urobilinogen,Urine <2.0 mg/dL (<2.0); WBC,Urine <1 /hpf (0-5)
[2023-09-11] MEDS: SODIUM CHLORIDE 0.9% 1,000 ML IV SCH (16:45)
[2023-09-11] MEDS ORDERED: MORPHINE SULFATE 4 MG/ML SYRINGE IV PRN (16:56)
[2023-09-11] MEDS ORDERED: NALOXONE 0.4 MG/ML 1 ML VIAL IV PRN (16:56)
[2023-09-11] MEDS ORDERED: IBUPROFEN 400 MG TAB PO PRN (16:56)
[2023-09-11] MEDS ORDERED: MAG HYDROX/AL HYDROX/SIMETH 30 ML CUP PO PRN (17:59)
[2023-09-11] MEDS ORDERED: DOCUSATE 100 MG CAP PO PRN (17:59)
[2023-09-11] MEDS ORDERED: ONDANSETRON 4 MG/2 ML VIAL IVP PRN (17:59)
--- NOTE | 2023-09-11 18:01 | P.HPIM ---
History of Present Illness H&P Date: 09/11/23 67 year old M with PMH of Schizophrenia, Parkinsons, CAD, HTN, GERD, renal CA, depression, pacemaker presents to the ED for abnormal labs. Drawn but his PCP, noted to have a Na of 121. Patient denies dizziness, confusion, weakness, chest pain, shortness of breath or palpitations. Denies dysuria or abdominal pain. Drinks about 3L of water daily. Does not follow a low salt diet. He has been taking Clozapine for many years. Does not drink EtOH. Non smoker. In the ED, he underwent extensive evaluation. Vital signs stable. CBC Hg 10.6, Hct 31.3. CMP Na 121, Cl 91, BUN 7, total protein 5.7. Mag 1.8. Phos 4.4. UA positive nitrite. EKG sinus rhythm with ST deression Patient was given a dose of Rocephin, started on NS at 100 cc/hr and admitted for further workup and management. General: non toxic, no distress, appears at stated age, frail Derm: warm, dry Head: atraumatic, normocephalic, symmetric Eyes: EOMI, no lid lag, anicteric sclera Mouth: no lip lesion, mucus membranes moist Cardiovascular: S1S2 reg, no murmur, positive posterior tibial pulse bilateral, Lungs: CTA bilateral, no rhonchi, no rales , no accessory muscle use Abdominal: soft, nontender to palpation, no guarding, no appreciable organomegaly Ext: no gross muscle atrophy, 1+ bilateral pitting edema, no contractures Neuro: no focal neuro deficits Psych: Alert, oriented, appropriate affect Based on my assessment of this patient, this patient meets a high complexity level of care. Patient has an acute diagnosis of hyponatremia that poses a threat to life or bodily function. Hyponatremia: Hypervolemic for overhydration versus medication induced SIADH. Discontinue IVF. Start fluid restriction. Obtain Serum and Urine Osm. Obtain Beronica. Normocytic anemia: Appears at baseline when compared to 08/26 labs. No signs of active bleeding. Recommend routine CA screening and appropriate follow up for renal CA. Abnormal UA: Asymptomatic. Discontinue Rocephin. Chronic conditions: Schizophrenia, Parkinsons, CAD, HTN, GERD, renal CA, depression, pacemaker CODE STATUS: FULL CODE. DVT Prophylaxis: Lovenox SQ. GI Prophylaxis: Protonix Designated medical POA if patient is not able to make medical decisions for themselves: Guardian I have reviewed the following seo consultant notes: I have reviewed the results of the following tests: As above. I have ordered the following tests: As above. I have discussed the care of this patient with the following independent historian: I have independently interpreted the following test below: EKG I have discussed the management of this patient with the following physician: ED provider Past Medical History Past Medical History: Hyperlipidemia, Hypertension, Myocardial Infarction ([place]) Additional Past Medical History / Comment(s): renal CA with surgery, parkinson's Last Myocardial Infarction Date:: unknown History of Any Multi-Drug Resistant Organisms: None Reported Past Surgical History: Heart Catheterization With Stent, Orthopedic Surgery Additional Past Surgical History / Comment(s): cryoablation for renal CA, Heart Catheterization 04/23/2021, Past Anesthesia/Blood Transfusion Reactions: No Reported Reaction Date of Last Stent Placement:: 04/23/21 Type of Cardiac Device: Biventricular Pacemaker, Unknown Device Placement Date:: unknown Past Psychological History: Depression, Panic Disorder, Schizophrenia Smoking Status: Never smoker Past Alcohol Use History: None Reported Past Drug Use History: None Reported - Past Family History Family Family Medical History: No Reported History Medications and Allergies Home Medications Medication Instructions Recorded Confirmed Type Omeprazole 40 mg PO DAILY@1500 12/09/20 08/26/23 History Aspirin 81 mg PO DAILY@0700 07/28/21 08/26/23 History Metoprolol Tartrate [Lopressor] 25 mg PO BID@0700,1900 07/28/21 08/26/23 History cloZAPine [Clozaril] 300 mg PO HS@1900 02/03/22 08/26/23 History Atorvastatin [Lipitor] 80 mg PO HS@1900 07/04/22 08/26/23 History Clopidogrel [Plavix] 75 mg PO DAILY@0700 07/04/22 08/26/23 History cloZAPine [Clozaril] 200 mg PO BID@0700,1500 07/04/22 08/26/23 History clonazePAM [KlonoPIN] 0.5 mg PO BID@0700,1900 11/11/22 08/26/23 History Carbidopa-Levodopa 25-100 mg 1 tab PO QID@07,11,15,19 05/31/23 08/26/23 History [Sinemet 25-100 mg] DULoxetine HCL [Cymbalta] 60 mg PO DAILY@0700 05/31/23 08/26/23 History Tamsulosin [Flomax] 0.4 mg PO HS@189905/31/23 08/26/23 History Sennosides/Docusate Sodium [Senna 1 tab PO TID PRN 06/14/23 08/26/23 History Plus 8.6-50 mg Tablet] amLODIPine [Norvasc] 5 mg PO HS@189908/26/23 08/26/23 History cefUROXime axetiL [Cefuroxime] 500 mg PO BID 7 Days #14 tab 08/29/23 Rx Allergies Allergy/AdvReac Type Severity Reaction Status Date / Time No Known Allergies Allergy Verified 09/11/23 12:07 Physical Exam Vitals: Vital Signs Temp Pulse Pulse Resp BP Pulse Ox 09/11/23 16:39 75 75 18 146/86 96 09/11/23 12:05 98.1 F 64 18 98/61 99 Intake and Output 09/11/23 09/11/23 09/11/23 06:59 14:59 22:59 Other: Weight 92.079 kg Results CBC & Chem 7: 09/11/23 12:35 09/11/23 12:35 Labs: Abnormal Lab Results - Last 24 Hours (Table) 09/11/23 09/11/23 09/11/23 Range/Units 12:35 12:35 13:47 RBC 3.76 L (4.30-5.90) m/uL Hgb 10.6 L (13.0-17.5) gm/dL Hct 31.3 L (39.0-53.0) % RDW 16.3 H (11.5-15.5) % Sodium 121 L (137-145) mmol/L Chloride 91 L (98-107) mmol/L BUN 7 L (9-20) mg/dL Total Protein 5.7 L (6.3-8.2) g/dL Urine Bacteria Few H (None) /hpf
[2023-09-12] MEDS: CLOPIDOGREL 75 MG TAB PO SCH (08:51)
[2023-09-12] MEDS: ENOXAPARIN 40 MG/0.4 ML SYRINGE SQ SCH (08:51)
[2023-09-12] MEDS: METOPROLOL TARTRATE 25 MG TAB PO SCH (08:51)
[2023-09-12] MEDS: ASPIRIN 81 MG PO SCH (08:51)
[2023-09-12 10:27] LABS: African American GFR (CKD) >90 (>60 ml/min/1.73 sqM); Anion Gap 7 mmol/L; Blood Urea Nitrogen 5 mg/dL (9-20); Calcium 8.4 mg/dL (8.4-10.2); Carbon Dioxide 26 mmol/L (22-30); Chloride 100 mmol/L (98-107); Glucose 226 mg/dL (74-99); Non-African American GFR(CKD) >90 (>60 ml/min/1.73 sqM); Sodium 133 mmol/L (137-145)
--- NOTE | 2023-09-12 10:58 | P.DS ---
Providers Date of admission: 09/11/23 16:13 Expected date of discharge: 09/12/23 Attending physician: Malia Hardy MD Primary care physician: [facility] Hospital Course: 67 year old M with PMH of Schizophrenia, Parkinsons, CAD, HTN, GERD, renal CA, depression, pacemaker presents to the ED for abnormal labs. Drawn but his PCP, noted to have a Na of 121. Patient denies dizziness, confusion, weakness, chest pain, shortness of breath or palpitations. Denies dysuria or abdominal pain. Drinks about 3L of water daily. Does not follow a low salt diet. He has been taking Clozapine for many years. Does not drink EtOH. Non smoker. In the ED, he underwent extensive evaluation. Vital signs stable. CBC Hg 10.6, Hct 31.3. CMP Na 121, Cl 91, BUN 7, total protein 5.7. Mag 1.8. Phos 4.4. UA positive nitrite. EKG sinus rhythm with ST depression Patient was given a dose of Rocephin, started on NS at 100 cc/hr and admitted for further workup and management. Given his lower extremity edema and use of Clozapine, thought of polydipsia versus medication induced SAIDH. Serum Osm 260. Cortisol 6.9. Urine Osm 87. Beronica < 20. Likely from over consumption of water. Fluid restriction was ordered, limited to 1.5L water daily. Repeat BMP the following day showed improved Na of 133. 09/12 Patient was seen and examined. Reports feeling tired. Advised to limit water intake to 1.5L a day. Plans for discharge home today. General: non toxic, no distress, appears at stated age, frail Derm: warm, dry Head: atraumatic, normocephalic, symmetric Eyes: EOMI, no lid lag, anicteric sclera Mouth: no lip lesion, mucus membranes moist Cardiovascular: S1S2 reg, no murmur, positive posterior tibial pulse bilateral, Lungs: CTA bilateral, no rhonchi, no rales , no accessory muscle use Abdominal: soft, nontender to palpation, no guarding, no appreciable organomegaly Ext: no gross muscle atrophy, 1+ bilateral pitting edema, no contractures Neuro: no focal neuro deficits Psych: Alert, oriented, appropriate affect Discharge Diagnosis: Hyponatremia Normocytic anemia Abnormal UA Chronic conditions: Schizophrenia, Parkinsons, CAD, HTN, GERD, renal CA, depression, pacemaker This complex discharge took 35 minutes to complete. Patient Condition at Discharge: Stable Plan - Discharge Summary Discharge Rx Participant: No New Discharge Prescriptions: No Action Omeprazole 40 mg PO DAILY@1500 Metoprolol Tartrate [Lopressor] 25 mg PO BID@0700,1900 cloZAPine [Clozaril] 300 mg PO HS@1900 Carbidopa-Levodopa 25-100 mg [Sinemet 25-100 mg] 1 tab PO QID@,,, Sennosides/Docusate Sodium [Senna Plus 8.6-50 mg Tablet] 1 tab PO TID PRN PRN Reason: Constipation amLODIPine [Norvasc] 5 mg PO HS@1900 Aspirin 81 mg PO DAILY@0700 cloZAPine [Clozaril] 200 mg PO BID@0700,1500 Clopidogrel [Plavix] 75 mg PO DAILY@0700 Atorvastatin [Lipitor] 80 mg PO HS@1900 clonazePAM [KlonoPIN] 0.5 mg PO BID@0700,1900 Tamsulosin [Flomax] 0.4 mg PO HS@1900 DULoxetine HCL [Cymbalta] 60 mg PO DAILY@0700 Discharge Medication List Omeprazole 40 mg PO DAILY@1500 12/09/20 [History] Aspirin 81 mg PO DAILY@0700 07/28/21 [History] Metoprolol Tartrate [Lopressor] 25 mg PO BID@0700,1900 07/28/21 [History] cloZAPine [Clozaril] 300 mg PO HS@1900 02/03/22 [History] Atorvastatin [Lipitor] 80 mg PO HS@1900 07/04/22 [History] Clopidogrel [Plavix] 75 mg PO DAILY@0700 07/04/22 [History] cloZAPine [Clozaril] 200 mg PO BID@0700,1500 07/04/22 [History] clonazePAM [KlonoPIN] 0.5 mg PO BID@0700,1900 11/11/22 [History] Carbidopa-Levodopa 25-100 mg [Sinemet 25-100 mg] 1 tab PO QID@,,,05/31/23 [History] DULoxetine HCL [Cymbalta] 60 mg PO DAILY@0700 05/31/23 [History] Tamsulosin [Flomax] 0.4 mg PO HS@1900 05/31/23 [History] Sennosides/Docusate Sodium [Senna Plus 8.6-50 mg Tablet] 1 tab PO TID PRN 06/14/23 [History] amLODIPine [Norvasc] 5 mg PO HS@189908/26/23 [History] Follow up Appointment(s)/Referral(s): [facility],Clinic [Primary Care Provider] - 1-2 days
[2023-09-12] MEDS: ACETAMINOPHEN TAB 325 MG TAB PO PRN (11:21)
[2023-09-12] MEDS: CARBIDOPA-LEVODOPA 25-100 MG 1 EACH TAB PO SCH (11:21)
[2023-09-12] MEDS: PANTOPRAZOLE 40 MG TABLET PO SCH (16:27)
[2023-09-12] MEDS: cloZAPine 100 MG TAB PO SCH ×2 (16:27→20:59)
[2023-09-12] MEDS: MIDODRINE 5 MG TAB PO SCH (17:35)
[2023-09-12] MEDS: SODIUM CHLORIDE 0.9% 1,000 ML IV SCH (17:36)
[2023-09-12] MEDS ORDERED: amLODIPine 5 MG TAB PO SCH (19:00)
[2023-09-12] MEDS: TAMSULOSIN 0.4 MG CAP.ER.24H PO SCH (20:59)
[2023-09-12] MEDS: clonazePAM 0.5 MG TAB PO SCH (20:59)
[2023-09-12] MEDS: ATORVASTATIN 80 MG TAB PO SCH (20:59)
[2023-09-13] MEDS: DULoxetine HCL 60 MG CAPSULE.DR PO SCH (08:29)
[2023-09-13 08:34] VITALS: RESP 16
--- NOTE | 2023-09-13 11:37 | P.DS ---
Providers Date of admission: 09/11/23 16:13 Expected date of discharge: 09/13/23 Attending physician: Malia aHrdy MD Primary care physician: [facility] Hospital Course: 67 year old M with PMH of Schizophrenia, Parkinsons, CAD, HTN, GERD, renal CA, depression, pacemaker presents to the ED for abnormal labs. Drawn but his PCP, noted to have a Na of 121. Patient denies dizziness, confusion, weakness, chest pain, shortness of breath or palpitations. Denies dysuria or abdominal pain. Drinks about 3L of water daily. Does not follow a low salt diet. He has been taking Clozapine for many years. Does not drink EtOH. Non smoker. In the ED, he underwent extensive evaluation. Vital signs stable. CBC Hg 10.6, Hct 31.3. CMP Na 121, Cl 91, BUN 7, total protein 5.7. Mag 1.8. Phos 4.4. UA positive nitrite. EKG sinus rhythm with ST depression Patient was given a dose of Rocephin, started on NS at 100 cc/hr and admitted for further workup and management. Given his lower extremity edema and use of Clozapine, thought of polydipsia versus medication induced SAIDH. Serum Osm 260. Cortisol 6.9. Urine Osm 87. Beronica < 20. Likely from over consumption of water. Fluid restriction was ordered, limited to 1.5L water daily. Repeat BMP the following day showed improved Na of 133. Discharge was held on 09/12 due to episode of hypotension. Orthostats were positive. He was started on NS at 75 cc/hr, started on Midodine, thigh high APURVA hose ordered and antihypertensive medications were held. Blood pressure improved. 09/12 Patient was seen and examined. Reports feeling tired. Discussed with his guardian, he may need a higher level of supervision. Currently, he has someone come to his assisted living for one hour a day. He needs frequent reminders of slow positional changes and limited water intake. I believe we should hold his Metoprolol and Amlodipine for now. Guardian advised he may need further titration of his antihypertensive medication depending on how his blood pressure trends. Plans for discharge back to assisted living today. General: non toxic, no distress, appears at stated age, frail Derm: warm, dry Head: atraumatic, normocephalic, symmetric Eyes: EOMI, no lid lag, anicteric sclera Mouth: no lip lesion, mucus membranes moist Cardiovascular: S1S2 reg, no murmur, positive posterior tibial pulse bilateral, Lungs: CTA bilateral, no rhonchi, no rales , no accessory muscle use Abdominal: soft, nontender to palpation, no guarding, no appreciable organomegaly Ext: no gross muscle atrophy, 1+ bilateral pitting edema, no contractures Neuro: no focal neuro deficits Psych: Alert, oriented, appropriate affect Discharge Diagnosis: Orthostatic hypotension Hyponatremia Normocytic anemia Abnormal UA Chronic conditions: Schizophrenia, Parkinsons, CAD, HTN, GERD, renal CA, depression, pacemaker This complex discharge took 35 minutes to complete. Patient Condition at Discharge: Stable Plan - Discharge Summary Discharge Rx Participant: No New Discharge Prescriptions: New Midodrine [ProAmatine] 2.5 mg PO BID-W/MEALS #30 tab Continue Omeprazole 40 mg PO DAILY@1500 cloZAPine [Clozaril] 300 mg PO HS@1900 Carbidopa-Levodopa 25-100 mg [Sinemet 25-100 mg] 1 tab PO QID@07,11,15,19 Sennosides/Docusate Sodium [Senna Plus 8.6-50 mg Tablet] 1 tab PO TID PRN PRN Reason: Constipation Aspirin 81 mg PO DAILY@0700 cloZAPine [Clozaril] 200 mg PO BID@0700,1500 Clopidogrel [Plavix] 75 mg PO DAILY@0700 Atorvastatin [Lipitor] 80 mg PO HS@1900 clonazePAM [KlonoPIN] 0.5 mg PO BID@0700,1900 Tamsulosin [Flomax] 0.4 mg PO HS@1900 DULoxetine HCL [Cymbalta] 60 mg PO DAILY@0700 Discontinued Metoprolol Tartrate [Lopressor] 25 mg PO BID@0700,1900 amLODIPine [Norvasc] 5 mg PO HS@1900 Discharge Medication List Omeprazole 40 mg PO DAILY@1500 12/09/20 [History] Aspirin 81 mg PO DAILY@0700 07/28/21 [History] cloZAPine [Clozaril] 300 mg PO HS@1900 02/03/22 [History] Atorvastatin [Lipitor] 80 mg PO HS@1900 07/04/22 [History] Clopidogrel [Plavix] 75 mg PO DAILY@0700 07/04/22 [History] cloZAPine [Clozaril] 200 mg PO BID@0700,1500 07/04/22 [History] clonazePAM [KlonoPIN] 0.5 mg PO BID@0700,1900 11/11/22 [History] Carbidopa-Levodopa 25-100 mg [Sinemet 25-100 mg] 1 tab PO QID@07,11,,19 05/31/23 [History] DULoxetine HCL [Cymbalta] 60 mg PO DAILY@0700 05/31/23 [History] Tamsulosin [Flomax] 0.4 mg PO HS@1900 05/31/23 [History] Sennosides/Docusate Sodium [Senna Plus 8.6-50 mg Tablet] 1 tab PO TID PRN 06/14/23 [History] Midodrine [ProAmatine] 2.5 mg PO BID-W/MEALS #30 tab 09/13/23 [Rx] Follow up Appointment(s)/Referral(s): [facility],Clinic [Primary Care Provider] - 1-2 days Patient Instructions/Handouts: Hyponatremia (DC) Activity/Diet/Wound Care/Special Instructions: Diet: Restrict yourself to 1.5L of water a day. Follow up with your PCP within 1-2 days of discharge. Stop Metoprolol and Amlodipine. Continue checking blood pressure and review your blood pressure log with your PCP. Discharge Disposition: HOME SELF-CARE
[2023-09-13 13:00] VITALS: BP 139/85; PULSE 73
[2023-09-13 13:31] VITALS: TEMP 98.6
== END 2023-09-13 14:23 | disposition home or self-care (01) | DRG 645 ==
LOC: EC 11:55 → 4SSUR 16:13 → 5NMEDONC 19:38
PROVIDERS: ADMIT Family Medicine; ATTEND Family Medicine
DX: E22.2 Syndrome of inappropriate secretion of antidiuretic hormone (principal); I25.2 Old myocardial infarction; G20.A1 Parkinson's disease without dyskinesia, without mention of fluctuations; D64.9 Anemia, unspecified; F20.9 Schizophrenia, unspecified; F32.A Depression, unspecified; E86.0 Dehydration; T42.4X5A Adverse effect of benzodiazepines, initial encounter; Z95.0 Presence of cardiac pacemaker; K21.9 Gastro-esophageal reflux disease without esophagitis; Z79.02 Long term (current) use of antithrombotics/antiplatelets; Z79.82 Long term (current) use of aspirin; Z79.899 Other long term (current) drug therapy; Z85.528 Personal history of other malignant neoplasm of kidney; I95.1 Orthostatic hypotension; I10 Essential (primary) hypertension; F41.0 Panic disorder [episodic paroxysmal anxiety]; I25.10 Atherosclerotic heart disease of native coronary artery without angina pectoris; E78.5 Hyperlipidemia, unspecified; E87.70 Fluid overload, unspecified; X58.XXXA Exposure to other specified factors, initial encounter
CPT/HCPCS: 36415; 80048; 80053; 81001; 82533; 83735; 83930; 83935; 84100; 84300; 85025; 87086; 93005; 96365; 96372; 99285

== ENCOUNTER 2023-09-26 18:58 | Observation (INO) | payer OTHER, MEDICARE ==
[2023-09-26 20:20] LABS: ALT 6 U/L (4-49); African American GFR (CKD) >90 (>60 ml/min/1.73 sqM); Albumin 3.6 g/dL (3.5-5.0); Anion Gap 5 mmol/L; Blood Urea Nitrogen 8 mg/dL (9-20); Calcium 8.3 mg/dL (8.4-10.2); Carbon Dioxide 25 mmol/L (22-30); Chloride 100 mmol/L (98-107); Glucose 102 mg/dL (74-99); Non-African American GFR(CKD) >90 (>60 ml/min/1.73 sqM); Sodium 130 mmol/L (137-145); Total Bilirubin 0.8 mg/dL (0.2-1.3); Total Protein 5.7 g/dL (6.3-8.2)
[2023-09-26 20:24] LABS: Potassium 3.9 mmol/L (3.5-5.1)
[2023-09-26 20:25] LABS: AST 23 U/L (17-59); Alkaline Phosphatase 72 U/L (38-126)
[2023-09-26 20:29] LABS: NT-Pro-B-Type Natriuretic Pept 85 pg/mL
--- NOTE | 2023-09-26 20:31 | XR ---
EXAMINATION TYPE: XR chest 2V DATE OF EXAM: 09/26/2023 8:14 PM CLINICAL INDICATION:Male, 67 years old with history of difficulty breathing; [facility] COMPARISON: Chest radiographs from 06/14/2023. TECHNIQUE: XR chest 2V Frontal and lateral views of the chest. FINDINGS: Lungs/Pleura: There is no evidence of pleural effusion, focal consolidation, or pneumothorax. Pulmonary vascularity: Unremarkable. Heart/mediastinum: Cardiomediastinal silhouette is unremarkable. Musculoskeletal: No acute osseous pathology. IMPRESSION: No acute cardiopulmonary disease/process.
[2023-09-26 20:34] LABS: Prothrombin Time 10.9 sec (10.0-12.5)
--- NOTE | 2023-09-26 21:00 | ED ---
SOB HPI - General Chief Complaint: Shortness of Breath Stated Complaint: Chest Pain Time Seen by Provider: 09/26/23 19:00 Source: EMS Mode of arrival: EMS Limitations: no limitations - History of Present Illness Initial Comments: 67-year-old male with past medical history of intellectual disability, Parkinson's who presents to the emergency department reporting chest pain, near syncope and shortness of breath. He presents from [facility]. Patient began complaining of chest pain and lightheadedness. Patient felt like as if he was going to pass out. He states he felt shortness of breath associated with this. EMS found the patient to have an oxygen saturation of 89%. He denies history of COPD with inhaler use. Denies cardiac history. No fevers or chills. Patient does take midodrine twice daily for his history of orthostatic hypotension. He did receive both doses today. He denies any lower extremity edema. No history of DVT or PE. No other alleviating, precipitating or modifying factors - Related Data Home Medications Medication Instructions Recorded Confirmed Omeprazole 40 mg PO DAILY@1500 12/09/20 09/27/23 Aspirin 81 mg PO DAILY@0700 07/28/21 09/27/23 cloZAPine [Clozaril] 300 mg PO HS@1900 02/03/22 09/27/23 Atorvastatin [Lipitor] 80 mg PO HS@1900 07/04/22 09/27/23 Clopidogrel [Plavix] 75 mg PO DAILY@0700 07/04/22 09/27/23 cloZAPine [Clozaril] 200 mg PO BID@0700,1500 07/04/22 09/27/23 clonazePAM [KlonoPIN] 0.5 mg PO BID@0700,1900 11/11/22 09/27/23 Carbidopa-Levodopa 25-100 mg 1 tab PO QID@07,11,15,05/31/23 09/27/23 [Sinemet 25-100 mg] DULoxetine HCL [Cymbalta] 60 mg PO DAILY@0700 05/31/23 09/27/23 Tamsulosin [Flomax] 0.4 mg PO HS@1900 05/31/23 09/27/23 Sennosides/Docusate Sodium [Senna 1 tab PO TID PRN 06/14/23 09/27/23 Plus 8.6-50 mg Tablet] Lidocaine 5% Patch [Lidoderm 5% 1 patch TOPICAL DAILY PRN 09/27/23 09/27/23 Patch] Previous Rx's Medication Instructions Recorded Midodrine [ProAmatine] 2.5 mg PO BID-W/MEALS tab 09/29/23 Allergies Allergy/AdvReac Type Severity Reaction Status Date / Time No Known Allergies Allergy Verified 09/27/23 12:12 Review of Systems ROS Statement: Those systems with pertinent positive or pertinent negative responses have been documented in the HPI. ROS Other: All systems not noted in ROS Statement are negative. Past Medical History Past Medical History: Hyperlipidemia, Hypertension, Myocardial Infarction ([place]) Additional Past Medical History / Comment(s): renal CA with surgery, parkinson's Last Myocardial Infarction Date:: unknown History of Any Multi-Drug Resistant Organisms: None Reported Past Surgical History: Heart Catheterization With Stent, Orthopedic Surgery Additional Past Surgical History / Comment(s): cryoablation for renal CA, Heart Catheterization 04/23/2021, Past Anesthesia/Blood Transfusion Reactions: No Reported Reaction Date of Last Stent Placement:: 04/23/21 Type of Cardiac Device: Biventricular Pacemaker, Unknown Device Placement Date:: unknown Past Psychological History: Depression, Panic Disorder, Schizophrenia Smoking Status: Never smoker Past Alcohol Use History: None Reported Past Drug Use History: None Reported - Past Family History Family Family Medical History: No Reported History General Exam Limitations: no limitations General appearance: alert, in no apparent distress Head exam: Present: atraumatic, normocephalic, normal inspection Eye exam: Present: normal appearance, PERRL, EOMI. Absent: scleral icterus, conjunctival injection, periorbital swelling ENT exam: Present: normal exam, mucous membranes moist Neck exam: Present: normal inspection. Absent: tenderness, meningismus, lymphadenopathy Respiratory exam: Present: normal lung sounds bilaterally. Absent: respiratory distress, wheezes, rales, rhonchi, stridor Cardiovascular Exam: Present: regular rate, normal rhythm, normal heart sounds. Absent: systolic murmur, diastolic murmur, rubs, gallop, clicks GI/Abdominal exam: Present: soft, normal bowel sounds. Absent: distended, tenderness, guarding, rebound, rigid Extremities exam: Present: normal inspection, full ROM, normal capillary refill. Absent: tenderness, pedal edema, joint swelling, calf tenderness Back exam: Present: normal inspection Neurological exam: Present: alert, oriented X3, CN II-XII intact Psychiatric exam: Present: normal affect, normal mood Skin exam: Present: warm, dry, intact, normal color. Absent: rash Course Vital Signs 09/26/23 09/26/23 09/26/23 19:00 19:15 21:50 Temperature 98.6 F Pulse Rate 87 80 Respiratory 18 15 Rate Blood Pressure 146/90 152/95 Blood Pressure [Right Arm] Blood Pressure 134/89 [Sitting] Blood Pressure 113/73 [Standing] Blood Pressure 158/90 [Supine] O2 Sat by Pulse 100 100 Oximetry 09/26/23 09/26/23 09/27/23 22:40 23:30 00:30 Temperature Pulse Rate 73 71 70 Respiratory 20 12 13 Rate Blood Pressure 157/98 153/93 160/97 Blood Pressure [Right Arm] Blood Pressure [Sitting] Blood Pressure [Standing] Blood Pressure [Supine] O2 Sat by Pulse 100 98 99 Oximetry 09/27/23 09/27/23 09/27/23 01:30 04:00 05:00 Temperature Pulse Rate 72 71 72 Respiratory 18 17 18 Rate Blood Pressure Blood Pressure [Right Arm] Blood Pressure [Sitting] Blood Pressure [Standing] Blood Pressure [Supine] O2 Sat by Pulse 95 Oximetry 09/27/23 09/27/23 09/27/23 05:53 06:00 07:00 Temperature 97.5 F L Pulse Rate 73 71 74 Respiratory 18 18 14 Rate Blood Pressure 175/102 164/91 164/91 Blood Pressure [Right Arm] Blood Pressure [Sitting] Blood Pressure [Standing] Blood Pressure [Supine] O2 Sat by Pulse 100 100 Oximetry 09/27/23 09/27/23 09/27/23 07:30 08:00 08:30 Temperature 97.8 F Pulse Rate 75 73 82 Respiratory 18 17 18 Rate Blood Pressure 164/91 164/91 164/91 Blood Pressure [Right Arm] Blood Pressure [Sitting] Blood Pressure [Standing] Blood Pressure [Supine] O2 Sat by Pulse 95 Oximetry 09/27/23 09:06 Temperature Pulse Rate Respiratory Rate Blood Pressure Blood Pressure 124/78 [Right Arm] Blood Pressure [Sitting] Blood Pressure [Standing] Blood Pressure [Supine] O2 Sat by Pulse Oximetry Medical Decision Making - Medical Decision Making Was pt. sent in by a medical professional or institution (Dr., PA, T[employer] BENDER, urgent care, hospital, or intermediate...) When possible be specific @ -No Did you speak to anyone other than the patient for history (EMS, parent, family, police, friend...)? What history was obtained from this source @ -EMS Did you review nursing and triage notes (agree or disagree)? Why? @ -I reviewed and agree with nursing and triage notes Were old charts reviewed (outside hosp., previous admission, EMS record, old EKG, old radiological studies, urgent care reports/EKG's, intermediate records)? Report findings @ -No old charts were reviewed Differential Diagnosis (chest pain, altered mental status, abdominal pain women, abdominal pain men, vaginal bleeding, weakness, fever, dyspnea, syncope, headache, dizziness, GI bleed, back pain, seizure, CVA, palpatations, mental health, musculoskeletal)? @ -Differential Chest Pain: Stable Angina, Unstable Angina, STEMI, NSTEMI Aortic Dissection, Pneumothorax, Musculoskeletal, Esophageal Spasm GERD, Cholecystitis, Pancreatitis, Zoster, this is not meant to be an all-inclusive list. EKG interpreted by me (3pts min.). @ -Yes and demonstrates sinus rhythm with a rate of 89. NV interval 132. QRS 97. QTc of 429. No acute ST segment elevations or depressions X-rays interpreted by me (1pt min.). @ -Yes and demonstrates no acute process CT interpreted by me (1pt min.). @ -None done U/S interpreted by me (1pt. min.). @ -None done What testing was considered but not performed or refused? (CT, X-rays, U/S, labs)? Why? @ -None What meds were considered but not given or refused? Why? @ -None Did you discuss the management of the patient with other professionals (professionals i.e. LEANNE Glaser, T[employer] BENDER, lab, RT, psych nurse, social welfare research worker, strand and binder controller, teacher, conservation enforcement officer, shelter case manager)? Give summary @ -Spoke with Dr. Markham for admission Was smoking cessation discussed for >3mins.? @ -No Was critical care preformed (if so, how long)? @ -No Were there social determinants of health that impacted care today? How? (Homelessness, low income, unemployed, alcoholism, drug addiction, transportation, low edu. Level, literacy, decrease access to med. care, halfway, rehab)? @ -No Was there de-escalation of care discussed even if they declined (Discuss DNR or withdrawal of care, Hospice)? DNR status @ -No What co-morbidities impacted this encounter? (DM, HTN, Smoking, COPD, CAD, Cancer, CVA, ARF, Chemo, Hep., AIDS, mental health diagnosis, sleep apnea, morbid obesity)? @ -Orthostatic hypotension, intellectual disability Was patient admitted / discharged? Hospital course, mention meds given and route, prescriptions, significant lab abnormalities, going to OR and other pertinent info. @ -Admitted. Upon arrival patient placed in room 23. Thorough history and physical exam was performed. Patient placed on continuous pulse ox and cardiac monitoring. Twelve-lead EKG is obtained. Laboratory studies are conducted. Chest x-ray was performed. Upon return the results they are discussed with the patient. Recommended admission for positive orthostatic hypotension, chest pain. Patient was agreeable to this. Patient mated to Dr. Markham who agreed to admit the patient Undiagnosed new problem with uncertain prognosis? @ -Yes Drug Therapy requiring intensive monitoring for toxicity (Heparin, Nitro, Insulin, Cardizem)? @ -No Were any procedures done? @ -No Diagnosis/symptom? @ -Acute chest pain, possible ACS, orthostatic Hypotension Acute, or Chronic, or Acute on Chronic? @ -Acute on chronic Uncomplicated (without systemic symptoms) or Complicated (systemic symptoms)? @ -Complicated Side effects of treatment? @ -No Exacerbation, Progression, or Severe Exacerbation? @ -No Poses a threat to life or bodily function? How? (Chest pain, [place], LA, pneumonia, PE, COPD, DKA, ARF, appy, cholecystitis, CVA, Diverticulitis, Homicidal, Suicidal, threat to staff... and all critical care pts) @ -No - Lab Data Result diagrams: 09/27/23 04:05 09/28/23 08:27 Lab Results 09/26/23 09/26/23 09/26/23 Range/Units 19:49 19:49 19:49 WBC (3.8-10.6) k/uL RBC (4.30-5.90) m/uL Hgb (13.0-17.5) gm/dL Hct (39.0-53.0) % MCV (80.0-100.0) fL MCH (25.0-35.0) pg MCHC (31.0-37.0) g/dL RDW (11.5-15.5) % Plt Count (150-450) k/uL MPV Neutrophils % % Lymphocytes % % Monocytes % % Eosinophils % % Basophils % % Neutrophils # (1.3-7.7) k/uL Lymphocytes # (1.0-4.8) k/uL Monocytes # (0-1.0) k/uL Eosinophils # (0-0.7) k/uL Basophils # (0-0.2) k/uL PT 10.9 (10.0-12.5) sec INR 1.0 (<1.2) APTT 20.3 L (22.0-30.0) sec D-Dimer 0.61 H (<0.60) mg/L FEU Sodium 130 L (137-145) mmol/L Potassium 3.9 (3.5-5.1) mmol/L Chloride 100 (98-107) mmol/L Carbon Dioxide 25 (22-30) mmol/L Anion Gap 5 mmol/L BUN 8 L (9-20) mg/dL Creatinine 0.73 (0.66-1.25) mg/dL Est GFR (CKD-EPI)AfAm >90 (>60 ml/min/1.73 sqM) Est GFR (CKD-EPI)NonAf >90 (>60 ml/min/1.73 sqM) Glucose 102 H (74-99) mg/dL Plasma Lactic Acid Rene 1.1 (0.7-2.0) mmol/L Calcium 8.3 L (8.4-10.2) mg/dL Total Bilirubin 0.8 (0.2-1.3) mg/dL AST 23 (17-59) U/L ALT 6 (4-49) U/L Alkaline Phosphatase 72 (38-126) U/L Troponin I (0.000-0.034) ng/mL NT-Pro-B Natriuret Pep 85 pg/mL Total Protein 5.7 L (6.3-8.2) g/dL Albumin 3.6 (3.5-5.0) g/dL Influenza Type A (PCR) (Not Detectd) Influenza Type B (PCR) (Not Detectd) RSV (PCR) (Not Detectd) SARS-CoV-2 (PCR) (Not Detectd) 09/26/23 09/26/23 09/26/23 Range/Units 19:49 19:49 21:18 WBC 12.2 H (3.8-10.6) k/uL RBC 3.94 L (4.30-5.90) m/uL Hgb 11.1 L (13.0-17.5) gm/dL Hct 33.5 L (39.0-53.0) % MCV 85.2 (80.0-100.0) fL MCH 28.1 (25.0-35.0) pg MCHC 33.0 (31.0-37.0) g/dL RDW 15.9 H (11.5-15.5) % Plt Count 271 (150-450) k/uL MPV 7.9 Neutrophils % 81 % Lymphocytes % 11 % Monocytes % 5 % Eosinophils % 1 % Basophils % 0 % Neutrophils # 9.9 H (1.3-7.7) k/uL Lymphocytes # 1.4 (1.0-4.8) k/uL Monocytes # 0.7 (0-1.0) k/uL Eosinophils # 0.2 (0-0.7) k/uL Basophils # 0.0 (0-0.2) k/uL PT (10.0-12.5) sec INR (<1.2) APTT (22.0-30.0) sec D-Dimer (<0.60) mg/L FEU Sodium (137-145) mmol/L Potassium (3.5-5.1) mmol/L Chloride (98-107) mmol/L Carbon Dioxide (22-30) mmol/L Anion Gap mmol/L BUN (9-20) mg/dL Creatinine (0.66-1.25) mg/dL Est GFR (CKD-EPI)AfAm (>60 ml/min/1.73 sqM) Est GFR (CKD-EPI)NonAf (>60 ml/min/1.73 sqM) Glucose (74-99) mg/dL Plasma Lactic Acid Rene (0.7-2.0) mmol/L Calcium (8.4-10.2) mg/dL Total Bilirubin (0.2-1.3) mg/dL AST (17-59) U/L ALT (4-49) U/L Alkaline Phosphatase (38-126) U/L Troponin I <0.012 (0.000-0.034) ng/mL NT-Pro-B Natriuret Pep pg/mL Total Protein (6.3-8.2) g/dL Albumin (3.5-5.0) g/dL Influenza Type A (PCR) Not Detected (Not Detectd) Influenza Type B (PCR) Not Detected (Not Detectd) RSV (PCR) Not Detected (Not Detectd) SARS-CoV-2 (PCR) Not Detected (Not Detectd) Disposition Clinical Impression: Chest pain, Orthostatic hypotension, Respiratory insufficiency Disposition: ADMITTED IP TO THIS [facility] Condition: Stable Is patient prescribed a controlled substance at d/c from ED?: No Time of Disposition: 22:35 Decision to Admit Reason: Admit from EC Decision Date: 09/26/23 Decision Time: 22:35
[2023-09-26 21:09] LABS: Partial Thromboplastin Time 20.3 sec (22.0-30.0)
[2023-09-26 21:51] LABS: Basophils % (A) 0 %; Eosinophils # (A) 0.2 k/uL (0-0.7); Eosinophils % (A) 1 %; HCT 33.5 % (39.0-53.0); HGB 11.1 gm/dL (13.0-17.5); Lymphocytes # (A) 1.4 k/uL (1.0-4.8); Lymphocytes % (A) 11 %; MCH 28.1 pg (25.0-35.0); MCV 85.2 fL (80.0-100.0); Mean Platelet Volume 7.9; Monocytes # (A) 0.7 k/uL (0-1.0); Monocytes % (A) 5 %; Neutrophils # (A) 9.9 k/uL (1.3-7.7); Neutrophils % (A) 81 %; Platelet Count 271 k/uL (150-450); RBC 3.94 m/uL (4.30-5.90); RDW 15.9 % (11.5-15.5); WBC 12.2 k/uL (3.8-10.6)
[2023-09-26] MEDS ORDERED: NALOXONE 0.4 MG/ML 1 ML VIAL IV PRN (22:49)
[2023-09-26] MEDS: SODIUM CHLORIDE 0.9% 1,000 ML IV SCH (23:02)
[2023-09-27 04:28] LABS: Anisocytosis Slight; Basophils % (A) 0 %; Eosinophils # (A) 0.2 k/uL (0-0.7); Eosinophils % (A) 2 %; HCT 34.2 % (39.0-53.0); HGB 11.4 gm/dL (13.0-17.5); Lymphocytes # (A) 1.4 k/uL (1.0-4.8); Lymphocytes % (A) 15 %; MCH 28.5 pg (25.0-35.0); MCHC 33.2 g/dL (31.0-37.0); MCV 85.8 fL (80.0-100.0); Mean Platelet Volume 7.6; Monocytes # (A) 0.6 k/uL (0-1.0); Monocytes % (A) 6 %; Neutrophils # (A) 7.1 k/uL (1.3-7.7); Neutrophils % (A) 76 %; Platelet Count 282 k/uL (150-450); RBC 3.98 m/uL (4.30-5.90); RDW 16.2 % (11.5-15.5); WBC 9.4 k/uL (3.8-10.6)
[2023-09-27 04:40] LABS: African American GFR (CKD) >90 (>60 ml/min/1.73 sqM); Anion Gap 3 mmol/L; Blood Urea Nitrogen 5 mg/dL (9-20); Calcium 8.5 mg/dL (8.4-10.2); Carbon Dioxide 27 mmol/L (22-30); Chloride 106 mmol/L (98-107); Glucose 91 mg/dL (74-99); Non-African American GFR(CKD) >90 (>60 ml/min/1.73 sqM); Potassium 4.1 mmol/L (3.5-5.1); Sodium 136 mmol/L (137-145)
--- NOTE | 2023-09-27 06:13 | P.HPIM ---
History of Present Illness H&P Date: 09/26/23 Chief Complaint: Hypoxemia 67-year-old male with schizophrenia Parkinson's and coronary artery disease Patient is a alf resident unable to provide any meaningful history due to intellectual disability. And advanced Parkinson's. History was obtained by reviewing medical record and discussing the case with ED doctor Patient was brought into the hospital due to complaints of shortness of breath and near syncope he was also found to be hypoxic down to 89% on room air EMS was notified and he was brought into the hospital for evaluation No reports of fever or chills no report of other sick residents. Patient does have history of orthostatic hypotension for which she takes midodrine he missed his doses today No further history is obtainable at this time No reported history of DVT or PE review of systems Unable to obtain due to patient advanced Parkinson and intellectual disability on exam Constitutional: No acute distress, patient is sleeping easily arousable Eyes: Anicteric sclerae, moist conjunctiva, Pupils equal round reactive to light ENMT: NC/AT Oropharynx clear, no erythema, or exudates Neck: Supple, no masses, or JVD No carotid bruits No thyromegaly Lungs: Clear to auscultation Clear to percussion Normal respiratory effort, no accessory muscle use Cardiovascular: Heart regular in rate and rhythm, No murmurs, gallops, or rubs No peripheral edema Abdominal: Soft Nontender, no guarding, rebound or rigidity Abdomen moving with respiration Normoactive bowel sounds Extremities: No digital cyanosis No clubbing Pedal pulses intact and symmetrical Radial pulses intact and symmetrical No calf tenderness Psychiatric: Sleeping easily arousable does not answer my questions Neuro patient does not follow commands Past Medical History Past Medical History: Hyperlipidemia, Hypertension, Myocardial Infarction ([place]) Additional Past Medical History / Comment(s): renal CA with surgery, parkinson's Last Myocardial Infarction Date:: unknown History of Any Multi-Drug Resistant Organisms: None Reported Past Surgical History: Heart Catheterization With Stent, Orthopedic Surgery Additional Past Surgical History / Comment(s): cryoablation for renal CA, Heart Catheterization 04/23/2021, Past Anesthesia/Blood Transfusion Reactions: No Reported Reaction Date of Last Stent Placement:: 04/23/21 Type of Cardiac Device: Biventricular Pacemaker, Unknown Device Placement Date:: unknown Past Psychological History: Depression, Panic Disorder, Schizophrenia Smoking Status: Never smoker Past Alcohol Use History: None Reported Past Drug Use History: None Reported - Past Family History Family Family Medical History: No Reported History Medications and Allergies Home Medications Medication Instructions Recorded Confirmed Type Omeprazole 40 mg PO DAILY@1500 12/09/20 09/11/23 History Aspirin 81 mg PO DAILY@0700 07/28/21 09/11/23 History cloZAPine [Clozaril] 300 mg PO HS@1900 02/03/22 09/11/23 History Atorvastatin [Lipitor] 80 mg PO HS@1900 07/04/22 09/11/23 History Clopidogrel [Plavix] 75 mg PO DAILY@0700 07/04/22 09/11/23 History cloZAPine [Clozaril] 200 mg PO BID@0700,1500 07/04/22 09/11/23 History clonazePAM [KlonoPIN] 0.5 mg PO BID@0700,1900 11/11/22 09/11/23 History Carbidopa-Levodopa 25-100 mg 1 tab PO QID@07,11,15,19 05/31/23 09/11/23 History [Sinemet 25-100 mg] DULoxetine HCL [Cymbalta] 60 mg PO DAILY@0700 05/31/23 09/11/23 History Tamsulosin [Flomax] 0.4 mg PO HS@1900 05/31/23 09/11/23 History Sennosides/Docusate Sodium [Senna 1 tab PO TID PRN 06/14/23 09/11/23 History Plus 8.6-50 mg Tablet] Midodrine [ProAmatine] 2.5 mg PO BID-W/MEALS #30 tab 09/13/23 Rx Allergies Allergy/AdvReac Type Severity Reaction Status Date / Time No Known Allergies Allergy Verified 09/26/23 19:06 Physical Exam Vitals: Vital Signs Temp Pulse Resp BP BP BP BP 09/27/23 05:53 97.5 F L 73 18 175/102 09/27/23 05:00 72 18 09/27/23 04:00 71 17 09/27/23 01:30 72 18 09/27/23 00:30 70 13 160/97 09/26/23 23:30 71 12 153/93 09/26/23 22:40 73 20 157/98 09/26/23 21:50 80 15 152/95 09/26/23 19:15 134/89 113/73 158/90 09/26/23 19:00 98.6 F 87 18 146/90 Pulse Ox 09/27/23 05:53 100 09/27/23 05:00 09/27/23 04:00 09/27/23 01:30 95 09/27/23 00:30 99 09/26/23 23:30 98 09/26/23 22:40 100 09/26/23 21:50 100 09/26/23 19:15 09/26/23 19:00 100 Intake and Output 09/26/23 09/26/23 09/27/23 14:59 22:59 06:59 Other: Weight 87.543 kg Results CBC & Chem 7: 09/27/23 04:05 09/27/23 04:05 Labs: Abnormal Lab Results - Last 24 Hours (Table) 09/26/23 09/26/23 09/26/23 Range/Units 19:49 19:49 21:18 WBC 12.2 H (3.8-10.6) k/uL RBC 3.94 L (4.30-5.90) m/uL Hgb 11.1 L (13.0-17.5) gm/dL Hct 33.5 L (39.0-53.0) % RDW 15.9 H (11.5-15.5) % Neutrophils # 9.9 H (1.3-7.7) k/uL APTT 20.3 L (22.0-30.0) sec D-Dimer 0.61 H (<0.60) mg/L FEU Sodium 130 L (137-145) mmol/L BUN 8 L (9-20) mg/dL Glucose 102 H (74-99) mg/dL Calcium 8.3 L (8.4-10.2) mg/dL Total Protein 5.7 L (6.3-8.2) g/dL 09/27/23 09/27/23 Range/Units 04:05 04:05 WBC (3.8-10.6) k/uL RBC 3.98 L (4.30-5.90) m/uL Hgb 11.4 L (13.0-17.5) gm/dL Hct 34.2 L (39.0-53.0) % RDW 16.2 H (11.5-15.5) % Neutrophils # (1.3-7.7) k/uL APTT (22.0-30.0) sec D-Dimer (<0.60) mg/L FEU Sodium 136 L (137-145) mmol/L BUN 5 L (9-20) mg/dL Glucose (74-99) mg/dL Calcium (8.4-10.2) mg/dL Total Protein (6.3-8.2) g/dL Assessment and Plan Assessment: 67-year-old male alf resident advanced Parkinson and intellectual disabilities when sent in here due to shortness of breath and hypoxemia 89% on room air I discussed case with ED doctor and accepted the admission for close monitoring and evaluation of hypoxemia with anticipated length of stay less than 2 midnights Reported acute hypoxic respiratory failure Supplemental oxygen as needed Chest x-ray no acute cardiopulmonary process D-dimer 0.61 very slightly elevated normal value is less than 0.6, if patient becomes symptomatic again with hypoxemia on room air or reporting any pleuritic chest pain will consider CT angio of the chest to rule out PE Oxygen saturation while in the ED is 100% on room air Patient asymptomatic sleeping comfortably Acute respiratory viral panel negative for COVID, influenza, RSV Hyponatremia Sodium level 130 With otherwise renal function unremarkable BUN 8 creatinine 0.7 potassium 3.9 IV fluid hydration normal saline 130 cc/h Follow-up sodium level History of CAD Continue with aspirin 81 mg daily Plavix 75 mg p.o. daily Continue with atorvastatin 80 mg p.o. nightly Orthostatic hypotension Fall precautions Continue with midodrine 2.5 mg p.o. twice daily BPH Continue with Flomax Advanced Parkinson disease Continue with carbidopa Verify home medications Full code DVT prophylaxis heparin subcu 3 times daily GI prophylaxis omeprazole 40 mg p.o. daily
[2023-09-27] MEDS: clonazePAM 0.5 MG TAB PO SCH (06:21)
[2023-09-27] MEDS: CLOPIDOGREL 75 MG TAB PO SCH (06:21)
[2023-09-27] MEDS: CARBIDOPA-LEVODOPA 25-100 MG 1 EACH TAB PO SCH (06:22)
[2023-09-27] MEDS: ASPIRIN 81 MG PO SCH (06:23)
[2023-09-27] MEDS: HEPARIN SODIUM,PORCINE 5,000 UNIT/ML 1 ML VIAL SQ SCH (08:52)
[2023-09-27] MEDS: MIDODRINE 5 MG TAB PO SCH (09:21)
--- NOTE | 2023-09-27 13:18 | P.PN ---
Subjective Progress Note Date: 09/27/23 Hospital Course: 67-year-old male [facility] resident with history of Parkinson's disease, psychotic disorder, orthostatic hypotension on midodrine, CAD presenting with hypoxia and chest pain. Orthostatic hypertensive, otherwise vital signs within normal limits. On room air. Troponin negative x 3, sodium 130, WBC 12.2, hemoglobin 11.1. Respiratory viral panel negative. Chest x-ray does not show any acute process. EKG shows normal sinus rhythm. Cardiology consulted. Subjective: Patient seen and examined at bedside. No acute events overnight. Pertinent positives and negatives as discussed above, a complete review of systems was performed and all other systems are negative. Vitals Signs Reviewed. General: Nontoxic, no distress, appears at stated age Derm: Warm, dry Head: Atraumatic, normocephalic, symmetric Eyes: EOMI, no lid lag, anicteric sclera Mouth: No lip lesion, mucus membranes moist Cardiovascular: S1S2 reg, no murmur Lungs: CTA bilateral, no rhonchi, no rales, no accessory muscle use Abdominal: Soft, nontender to palpation, no guarding, no appreciable organomegaly Ext: No gross muscle atrophy, no edema, no contractures Neuro: CN II-XI grossly intact, no focal neuro deficits Psych: Alert, oriented x 1, appropriate affect Data Reviewed Today: Pertinent Labs: Hemoglobin 11.4, WBC 9.4, sodium 136, creatinine 0.84 Imaging: EKG independently interpreted normal sinus rhythm. Assessment and Plan: Active: Chest pain History of CAD Telemetry Cardiology consulted, pending recommendations Continue aspirin, Plavix, statin Hypovolemic hyponatremia, improving Repeat BMP tomorrow Continue normal saline at 130 cc an hour Resolved: Acute hypoxic respiratory failure Leukocytosis Chronic: Orthostatic hypotension Parkinson's disease DVT ppx: Subcu heparin Code status: Full code Anticipated discharge place: Pending clinical course Anticipated discharge time: pending clinical course Objective - Vital Signs Vital signs: Vital Signs Temp 97.8 F 09/27/23 08:30 Pulse 82 09/27/23 08:30 Resp 18 09/27/23 08:30 BP 124/78 09/27/23 09:06 Pulse Ox 95 09/27/23 08:30 FiO2 Intake & Output 09/26/23 09/27/23 09/27/23 18:59 06:59 18:59 Weight 87.543 kg - Labs CBC & Chem 7: 09/27/23 04:05 09/27/23 04:05 Labs: Abnormal Lab Results - Last 24 Hours (Table) 09/26/23 09/26/23 09/26/23 Range/Units 19:49 19:49 21:18 WBC 12.2 H (3.8-10.6) k/uL RBC 3.94 L (4.30-5.90) m/uL Hgb 11.1 L (13.0-17.5) gm/dL Hct 33.5 L (39.0-53.0) % RDW 15.9 H (11.5-15.5) % Neutrophils # 9.9 H (1.3-7.7) k/uL APTT 20.3 L (22.0-30.0) sec D-Dimer 0.61 H (<0.60) mg/L FEU Sodium 130 L (137-145) mmol/L BUN 8 L (9-20) mg/dL Glucose 102 H (74-99) mg/dL Calcium 8.3 L (8.4-10.2) mg/dL Total Protein 5.7 L (6.3-8.2) g/dL 09/27/23 09/27/23 Range/Units 04:05 04:05 WBC (3.8-10.6) k/uL RBC 3.98 L (4.30-5.90) m/uL Hgb 11.4 L (13.0-17.5) gm/dL Hct 34.2 L (39.0-53.0) % RDW 16.2 H (11.5-15.5) % Neutrophils # (1.3-7.7) k/uL APTT (22.0-30.0) sec D-Dimer (<0.60) mg/L FEU Sodium 136 L (137-145) mmol/L BUN 5 L (9-20) mg/dL Glucose (74-99) mg/dL Calcium (8.4-10.2) mg/dL Total Protein (6.3-8.2) g/dL
--- NOTE | 2023-09-27 14:33 | P.CRDCN ---
History of Present Illness Consult date: 09/27/23 Chief complaint: Chest pain History of present illness: This is a 67-year-old gentleman with a past medical history significant for intellectual issues and Parkinson disease currently residing at [facility] as well as coronary artery disease with prior stenting of the right coronary artery and also hypertension and dyslipidemia and a history of orthostatic hypotension as well as multiple comorbid conditions. We are asked to see the patient in consult today in the emergency department for chest discomfort. The patient is extremely poor historian he does not recall and know why he is in the hospital. Currently he denies any chest pain or chest discomfort but according to the ER note the patient was experiencing symptoms of chest discomfort. No dizziness or lightheadedness and no shortness of breath and no feeling of heart racing or fluttering and no presyncope or syncope. He underwent further workup including an EKG showing sinus mechanism with no ischemic ST or T wave abnormalities. Chest x-ray did not show any acute abnormalities. He underwent further cardiac investigation as well including cardiac enzymes came in to be unremarkable. The patient is hemodynamically stable. He was seen by our service in 2022 where he underwent a workup including an echo and that showed normal LV systolic function with no significant valvular abnormalities. We tried to contact the patient's sister to obtain further details about the reason he was admitted to the hospital but we were unable to get hold of her. The examination is remarkable for regular rate and rhythm with a soft systolic murmur at the right upper sternal border with a clear breathing sounds bilaterally and no carotid bruit and no lower extremities edema noted. Assessment Coronary artery disease with prior stenting of the RCA History of orthostatic hypotension Hypertension and dyslipidemia Parkinson disease Plan Acute coronary event was ruled out The patient is stable from a cardiovascular standpoint of view We will obtain an echocardiogram with Doppler Further recommendation after obtaining more details from the family about the reason the patient was admitted Follow-up with the patient Past Medical History Past Medical History: Hyperlipidemia, Hypertension, Myocardial Infarction (CA) Additional Past Medical History / Comment(s): renal CA with surgery, parkinson's Last Myocardial Infarction Date:: unknown History of Any Multi-Drug Resistant Organisms: None Reported Past Surgical History: Heart Catheterization With Stent, Orthopedic Surgery Additional Past Surgical History / Comment(s): cryoablation for renal CA, Heart Catheterization 04/23/2021, Past Anesthesia/Blood Transfusion Reactions: No Reported Reaction Date of Last Stent Placement:: 04/23/21 Type of Cardiac Device: Biventricular Pacemaker, Unknown Device Placement Date:: unknown Past Psychological History: Depression, Panic Disorder, Schizophrenia Smoking Status: Never smoker Past Alcohol Use History: None Reported Past Drug Use History: None Reported - Past Family History Family Family Medical History: No Reported History Medications and Allergies Home Medications Medication Instructions Recorded Confirmed Type Omeprazole 40 mg PO DAILY@1500 12/09/20 09/27/23 History Aspirin 81 mg PO DAILY@0700 07/28/21 09/27/23 History cloZAPine [Clozaril] 300 mg PO HS@1900 02/03/22 09/27/23 History Atorvastatin [Lipitor] 80 mg PO HS@1900 07/04/22 09/27/23 History Clopidogrel [Plavix] 75 mg PO DAILY@0700 07/04/22 09/27/23 History cloZAPine [Clozaril] 200 mg PO BID@0700,1500 07/04/22 09/27/23 History clonazePAM [KlonoPIN] 0.5 mg PO BID@0700,1900 11/11/22 09/27/23 History Carbidopa-Levodopa 25-100 mg 1 tab PO QID@07,11,,05/31/23 09/27/23 History [Sinemet 25-100 mg] DULoxetine HCL [Cymbalta] 60 mg PO DAILY@0700 05/31/23 09/27/23 History Tamsulosin [Flomax] 0.4 mg PO HS@1900 05/31/23 09/27/23 History Sennosides/Docusate Sodium [Senna 1 tab PO TID PRN 06/14/23 09/27/23 History Plus 8.6-50 mg Tablet] Lidocaine 5% Patch [Lidoderm] 1 patch TOPICAL DAILY PRN 09/27/23 09/27/23 History Midodrine [ProAmatine] 2.5 mg PO BID-W/MEALS@08,15 09/27/23 09/27/23 History Allergies Allergy/AdvReac Type Severity Reaction Status Date / Time No Known Allergies Allergy Verified 09/27/23 12:12 Physical Exam Vitals: Vital Signs Temp Pulse Resp BP BP BP BP 09/27/23 09:06 124/78 09/27/23 08:30 97.8 F 82 18 164/91 09/27/23 08:00 73 17 164/91 09/27/23 07:30 75 18 164/91 09/27/23 07:00 74 14 164/91 09/27/23 06:00 71 18 164/91 09/27/23 05:53 97.5 F L 73 18 175/102 09/27/23 05:00 72 18 09/27/23 04:00 71 17 09/27/23 01:30 72 18 09/27/23 00:30 70 13 160/97 09/26/23 23:30 71 12 153/93 09/26/23 22:40 73 20 157/98 09/26/23 21:50 80 15 152/95 09/26/23 19:15 134/89 113/73 09/26/23 19:00 98.6 F 87 18 146/90 BP Pulse Ox 09/27/23 09:06 09/27/23 08:30 95 09/27/23 08:00 09/27/23 07:30 09/27/23 07:00 09/27/23 06:00 100 09/27/23 05:53 100 09/27/23 05:00 09/27/23 04:00 09/27/23 01:30 95 09/27/23 00:30 99 09/26/23 23:30 98 09/26/23 22:40 100 09/26/23 21:50 100 09/26/23 19:15 158/90 09/26/23 19:00 100 Intake and Output 09/26/23 09/27/23 09/27/23 22:59 06:59 14:59 Other: Weight 87.543 kg Results 09/27/23 04:05 09/27/23 04:05 Cardiac Enzymes 09/26/23 09/26/23 09/27/23 Range/Units 19:49 19:49 00:57 AST 23 (17-59) U/L Troponin I <0.012 <0.012 (0.000-0.034) ng/mL 09/27/23 Range/Units 04:05 AST (17-59) U/L Troponin I <0.012 (0.000-0.034) ng/mL Coagulation 09/26/23 Range/Units 19:49 PT 10.9 (10.0-12.5) sec APTT 20.3 L (22.0-30.0) sec CBC 09/26/23 09/27/23 Range/Units 21:18 04:05 WBC 12.2 H 9.4 (3.8-10.6) k/uL RBC 3.94 L 3.98 L (4.30-5.90) m/uL Hgb 11.1 L 11.4 L (13.0-17.5) gm/dL Hct 33.5 L 34.2 L (39.0-53.0) % Plt Count 271 282 (150-450) k/uL Comprehensive Metabolic Panel 09/26/23 09/27/23 Range/Units 19:49 04:05 Sodium 130 L 136 L (137-145) mmol/L Potassium 3.9 4.1 (3.5-5.1) mmol/L Chloride 100 106 (98-107) mmol/L Carbon Dioxide 25 27 (22-30) mmol/L BUN 8 L 5 L (9-20) mg/dL Creatinine 0.73 0.84 (0.66-1.25) mg/dL Glucose 102 H 91 (74-99) mg/dL Calcium 8.3 L 8.5 (8.4-10.2) mg/dL AST 23 (17-59) U/L ALT 6 (4-49) U/L Alkaline Phosphatase 72 (38-126) U/L Total Protein 5.7 L (6.3-8.2) g/dL Albumin 3.6 (3.5-5.0) g/dL Current Medications Generic Name Dose Route Start Last Admin Trade Name Andriy PRN Reason Stop Dose Admin Aspirin 81 mg 09/27/23 07:00 09/27/23 06:23 Aspirin 81 Mg PO 81 mg DAILY@0700 [facility] Administration Atorvastatin Calcium 80 mg 09/27/23 19:00 Atorvastatin 80 Mg Tab PO HS@1900 [facility] Carbidopa/Levodopa 1 each 09/27/23 07:00 09/27/23 11:28 Carbidopa-Levodopa 25-100 Mg 1 Each Tab PO 1 each QID@07,11,15,19 JEAN Administration Clonazepam 0.5 mg 09/27/23 07:00 09/27/23 06:21 Clonazepam 0.5 Mg Tab PO 0.5 mg BID@0700,1900 JEAN Administration Clopidogrel Bisulfate 75 mg 09/27/23 07:00 09/27/23 06:21 Clopidogrel 75 Mg Tab PO 75 mg DAILY@0700 JEAN Administration Clozapine 200 mg 09/27/23 15:00 Clozapine 100 Mg Tab PO 09/30/23 23:00 BID@0700,1500 [facility] Clozapine 300 mg 09/27/23 19:00 Clozapine 100 Mg Tab PO 09/30/23 23:00 HS@1900 [facility] Duloxetine HCl 60 mg 09/28/23 07:00 Duloxetine Hcl 60 Mg Capsule.Dr PO DAILY@0700 [facility] Heparin Sodium (Porcine) 5,000 unit 09/27/23 08:00 09/27/23 08:52 Heparin Sodium,Porcine 5,000 Unit/Ml 1 Ml Vial SQ 5,000 unit Q8HR JEAN Administration Sodium Chloride 1,000 mls @ 130 mls/hr 09/26/23 23:00 09/27/23 11:28 Saline 0.9% IV 130 mls/hr .Q7H42M JEAN Administration Midodrine 2.5 mg 09/27/23 07:30 09/27/23 09:21 Midodrine 5 Mg Tab PO Not Given BID-W/MEALS [facility] Naloxone HCl 0.2 mg 09/26/23 22:49 Naloxone 0.4 Mg/Ml 1 Ml Vial IV Q2M PRN Opioid Reversal Pantoprazole Sodium 40 mg 09/27/23 15:00 Pantoprazole 40 Mg Tablet PO DAILY@1500 [facility] Tamsulosin HCl 0.4 mg 09/27/23 19:00 Tamsulosin 0.4 Mg Cap.Er.24h PO HS@1900 [facility] Intake and Output 09/26/23 09/27/23 09/27/23 22:59 06:59 14:59 Other: Weight 87.543 kg 09/27/23 04:05 09/27/23 04:05
[2023-09-27] MEDS: PANTOPRAZOLE 40 MG TABLET PO SCH (15:33)
[2023-09-27] MEDS: cloZAPine 100 MG TAB PO SCH ×2 (15:34→21:06)
[2023-09-27] MEDS: TAMSULOSIN 0.4 MG CAP.ER.24H PO SCH (21:06)
[2023-09-27] MEDS: ATORVASTATIN 80 MG TAB PO SCH (21:06)
[2023-09-27] MEDS: ACETAMINOPHEN TAB 325 MG TAB PO PRN (21:43)
[2023-09-28] MEDS: BENZONATATE 100 MG CAP PO PRN (05:05)
[2023-09-28] MEDS: DULoxetine HCL 60 MG CAPSULE.DR PO SCH (06:30)
[2023-09-28 10:06] LABS: African American GFR (CKD) >90 (>60 ml/min/1.73 sqM); Anion Gap 8 mmol/L; Blood Urea Nitrogen 9 mg/dL (9-20); Calcium 8.3 mg/dL (8.4-10.2); Carbon Dioxide 21 mmol/L (22-30); Chloride 107 mmol/L (98-107); Glucose 128 mg/dL (74-99); Non-African American GFR(CKD) >90 (>60 ml/min/1.73 sqM); Potassium 4.1 mmol/L (3.5-5.1); Sodium 136 mmol/L (137-145)
--- NOTE | 2023-09-28 14:04 | P.PN ---
Subjective Progress Note Date: 09/28/23 Hospital Course: 67-[facility]-old male [facility] with history of Parkinson's disease, psychotic disorder, orthostatic hypotension on midodrine, CAD presenting with hypoxia and chest pain. Orthostatic hypertensive, otherwise vital signs within normal limits. On room air. Troponin negative x 3, sodium 130, WBC 12.2, hemoglobin 11.1. Respiratory viral panel negative. Chest x-ray does not show any acute process. EKG shows normal sinus rhythm. Cardiology consulted. Echocardiogram pending Subjective: Patient seen and examined at bedside. No acute events overnight. Pertinent positives and negatives as discussed above, a complete review of systems was performed and all other systems are negative. Vitals Signs Reviewed. General: Nontoxic, no distress, appears at stated age Derm: Warm, dry Head: Atraumatic, normocephalic, symmetric Eyes: EOMI, no lid lag, anicteric sclera Mouth: No lip lesion, mucus membranes moist Cardiovascular: S1S2 reg, no murmur Lungs: CTA bilateral, no rhonchi, no rales, no accessory muscle use Abdominal: Soft, nontender to palpation, no guarding, no appreciable organomegaly Ext: No gross muscle atrophy, no edema, no contractures Neuro: CN II-XI grossly intact, no focal neuro deficits Psych: Alert, oriented x 1, appropriate affect Data Reviewed Today: Pertinent Labs: Sodium 136, bicarb 21, creatinine 0.61 Imaging: No new imaging Assessment and Plan: Active: Chest pain, ACS ruled out History of CAD Telemetry Discussed management with cardiology, may be discharged if echocardiogram looks normal Continue aspirin, Plavix, statin Hypovolemic hyponatremia, improving Continue normal saline at 130 cc an hour Resolved: Acute hypoxic respiratory failure Leukocytosis Chronic: Orthostatic hypotension Parkinson's disease DVT ppx: Subcu heparin Code status: Full code Anticipated discharge place: Home Anticipated discharge time: Pending echocardiogram Objective - Vital Signs Vital signs: Vital Signs Temp 98.2 F 09/28/23 13:15 Pulse 78 09/28/23 13:15 Resp 16 09/28/23 13:15 BP 115/73 09/28/23 13:15 Pulse Ox 98 09/28/23 13:15 FiO2 Intake & Output 09/27/23 09/28/23 09/28/23 18:59 06:59 18:59 Intake Total 1250 2020 708 Output Total 1050 1575 525 Balance 200 445 183 Weight 87.543 kg Intake: Intake, IV Titration 900 1300 Amount Sodium Chloride 0.9% 1, 900 1300 000 ml @ 130 mls/hr IV . Q7H42M [facility] Rx#:[id number] Oral 350 720 708 Output: Urine 1050 1575 525 Other: Voiding Method Urinal Urinal # Voids 2 # Bowel Movements 0 - Labs CBC & Chem 7: 09/27/23 04:05 09/28/23 08:27 Labs: Abnormal Lab Results - Last 24 Hours (Table) 09/28/23 Range/Units 08:27 Sodium 136 L (137-145) mmol/L Carbon Dioxide 21 L (22-30) mmol/L Creatinine 0.61 L (0.66-1.25) mg/dL Glucose 128 H (74-99) mg/dL Calcium 8.3 L (8.4-10.2) mg/dL
--- NOTE | 2023-09-28 14:07 | P.PN ---
Subjective Progress Note Date: 09/28/23 Chief complaint: Chest pain History of present illness: This is a 67-year-old gentleman with a past medical history significant for intellectual issues and Parkinson disease currently residing at [facility] as well as coronary artery disease with prior stenting of the right coronary artery and also hypertension and dyslipidemia and a history of orthostatic hypotension as well as multiple comorbid conditions. We are asked to see the patient in [facility] today in the emergency department for chest discomfort. The patient is extremely poor historian he does not recall and know why he is in the hospital. Currently he denies any chest pain or chest discomfort but according to the ER note the patient was experiencing symptoms of chest discomfort. No dizziness or lightheadedness and no shortness of breath and no feeling of heart racing or fluttering and no presyncope or syncope. He underwent further workup including an EKG showing sinus mechanism with no ischemic ST or T wave abnormalities. Chest x-ray did not show any acute abnormalities. He underwent further cardiac investigation as well including cardiac enzymes came in to be unremarkable. The patient is hemodynamically stable. He was seen by our service in 2022 where he underwent a workup including an echo and that showed normal LV systolic function with no significant valvular abnormalities. We tried to contact the patient's sister to obtain further details about the reason he was admitted to the hospital but we were unable to get hold of her. The examination is remarkable for regular rate and rhythm with a soft systolic murmur at the right upper sternal border with a clear breathing sounds bilaterally and no carotid bruit and no lower extremities edema noted. 3/4 Patient states that the reason he came into the hospital because he was walking and falling. He did have chest pain at home that lasted for half hour but has had no recurrence of the chest pain. Blood pressure 115/73, heart rate 70, pulse ox 90% on room air. Repeat blood work reveals sodium 136, potassium 4.1, creatinine 0.61. The examination is remarkable for regular rate and rhythm with a soft systolic murmur at the right upper sternal border with a clear breathing sounds bilaterally and no carotid bruit and no lower extremities edema noted. Assessment Coronary artery disease with prior stenting of the RCA History of orthostatic hypotension Hypertension and dyslipidemia Parkinson disease Plan Acute coronary event was ruled out The patient is stable from a cardiovascular standpoint of view We will obtain an echocardiogram with Doppler If the echocardiogram is unremarkable, patient is cleared for discharge from cardiology. Nurse practitioner note has been reviewed, I agree with documented findings and plan of care. Patient was seen and examined. Objective - Vital Signs Vital signs: Vital Signs Temp 98.4 F 09/28/23 02:00 Pulse 85 09/28/23 02:00 Resp 14 09/28/23 02:00 BP 152/74 09/28/23 02:00 Pulse Ox 97 09/28/23 02:00 FiO2 Intake & Output 09/27/23 09/28/23 09/28/23 18:59 06:59 18:59 Intake Total 1250 2020 Output Total 1050 1575 Balance 200 445 Weight 87.543 kg Intake: Intake, IV Titration 900 1300 Amount Sodium Chloride 0.9% 1, 900 1300 000 ml @ 130 mls/hr IV . Q7H42M [facility] Rx#:[id number] Oral 350 720 Output: Urine 1050 1575 Other: Voiding Method Urinal # Voids 2 # Bowel Movements 0 - Labs CBC & Chem 7: 09/27/23 04:05 09/28/23 08:27
--- NOTE | 2023-09-28 19:00 | CA ---
Transthoracic Echo Report Name: González Russell Age: 67 Gender: M : 1955 Exam Date: 09/28/2023 07:56 Exam Location: [place] [facility] Ht (in): 71 Wt (lb): 193 Ordering Physician: Hakeem Dixon MD ([id number]) Attending/Referring Phys: Churn Operator Margarine ML Procedure CPT: Indications: Chest Pain Cardiac Hx: Technical Quality: Contrast 1: Total Dose (mL): Contrast 2: Total Dose (mL): MEASUREMENTS (Male / Female) Normal Values 2D ECHO LV Diastolic Diameter PLAX 3.5 cm 4.2 - 5.9 / 3.9 - 5.3 cm LV Systolic Diameter PLAX 2.5 cm IVS Diastolic Thickness 1.2 cm 0.6 - 1.0 / 0.6 - 0.9 cm LVPW Diastolic Thickness 0.9 cm 0.6 - 1.0 / 0.6 - 0.9 cm LV Relative Wall Thickness 0.6 LVOT Diameter 2.2 cm Aortic Root Diameter 3.9 cm LA Systolic Diameter LX 3.6 cm 3.0 - 4.0 / 2.7 - 3.8 cm DOPPLER AV Peak Velocity 131.4 cm/s AV Peak Gradient 6.9 mmHg AV Mean Velocity 89.3 cm/s AV Mean Gradient 3.4 mmHg AV Velocity Time Integral 24.3 cm LVOT Peak Velocity 100.4 cm/s LVOT Peak Gradient 4.0 mmHg LVOT Velocity Time Integral 27.3 cm LVOT Stroke Volume 100.1 cm??? LVOT Stroke Volume Index 48.2 ml/m??? LVOT Cardiac Index 3989.8 cm???/min???m??? AV Area Cont Eq vti 4.1 cm??? AV Area Cont Eq pk 2.8 cm??? Mitral E Point Velocity 78.7 cm/s Mitral A Point Velocity 79.8 cm/s Mitral E to A Ratio 1.0 MV Deceleration Time 249.5 ms MV E' Velocity 5.5 cm/s Mitral E to MV E' Ratio 14.2 PV Peak Velocity 95.3 cm/s PV Peak Gradient 3.6 mmHg FINDINGS Left Ventricle Mildly increased septal wall thickness. Left ventricular ejection fraction is estimated at 50-55 %. Right Ventricle Normal right ventricular size. Unable to estimate the right ventricular systolic pressure. Right Atrium Normal right atrial size. Left Atrium Normal left atrial size. Mitral Valve Trace mitral regurgitation. Aortic Valve Trileaflet aortic valve. Tricuspid Valve Mild tricuspid regurgitation. Pulmonic Valve Trace pulmonic regurgitation. Pericardium No pericardial effusion. Aorta Normal size aortic root. CONCLUSIONS Normal LV function Previewed by: Dr. Jacob Aguayo MD (Electronically Signed) Final Date: 28 September 2023 18:59
[2023-09-29 07:57] VITALS: BP 148/90; PULSE 73; RESP 19; TEMP 97.5
--- NOTE | 2023-09-29 11:42 | P.DS ---
Providers Date of admission: 09/26/23 22:51 Attending physician: Qiana Best MD Consults: 09/26/23 22:49 Consult Physician Urgent Consulting Provider: [facility] Consult Reason/Comments: acute chest pain, orthostatic hypotension Do you want consulting provider notified?: Yes Primary care physician: [facility] Hospital Course: Discharge Diagnosis: Chest pain: ACS ruled out History of coronary artery disease Hypovolemic hyponatremia Hospital Course: Patient is a 67-year-old male who is a [facility] at the [facility] with a hi story of Parkinson's disease, psychotic disorder, orthostatic hypotension on midodrine, coronary disease who presents to the ED with hypoxia and chest pain. Patient's orthostatics were negative. In the ED patient was on room air. Patient was admitted to the medicine service. His troponins were negative x 3. Patient echocardiogram was unremarkable. Patient was cleared for discharge by cardiology. Patient's chest x-ray showed no acute process. Patient was satting on room air at the time of discharge. At the time of discharge patient was also looking forward to going home. Patient deemed stable for discharge back to his [facility]. 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 spontaneously Psych - Calm and cooperative, lacks judgment A total of [33] minutes of time were spent preparing this complex discharge summary .Chest pain: Patient Condition at Discharge: Stable Plan - Discharge Summary Discharge Rx Participant: No New Discharge Prescriptions: New Midodrine [ProAmatine] 2.5 mg PO BID-W/MEALS tab Continue Omeprazole 40 mg PO DAILY@1500 cloZAPine [Clozaril] 300 mg PO HS@1900 Carbidopa-Levodopa 25-100 mg [Sinemet 25-100 mg] 1 tab PO QID@07,11,15,19 Sennosides/Docusate Sodium [Senna Plus 8.6-50 mg Tablet] 1 tab PO TID PRN PRN Reason: Constipation Aspirin 81 mg PO DAILY@0700 cloZAPine [Clozaril] 200 mg PO BID@0700,1500 Clopidogrel [Plavix] 75 mg PO DAILY@0700 Atorvastatin [Lipitor] 80 mg PO HS@1900 clonazePAM [KlonoPIN] 0.5 mg PO BID@0700,1900 Tamsulosin [Flomax] 0.4 mg PO HS@1900 DULoxetine HCL [Cymbalta] 60 mg PO DAILY@0700 Lidocaine 5% Patch [Lidoderm 5% Patch] 1 patch TOPICAL DAILY PRN PRN Reason: Pain Discontinued Midodrine [ProAmatine] 2.5 mg PO BID-W/MEALS@ Discharge Medication List Omeprazole 40 mg PO DAILY@1500 12/09/20 [History] Aspirin 81 mg PO DAILY@0700 07/28/21 [History] cloZAPine [Clozaril] 300 mg PO HS@1900 02/03/22 [History] Atorvastatin [Lipitor] 80 mg PO HS@1900 07/04/22 [History] Clopidogrel [Plavix] 75 mg PO DAILY@0700 07/04/22 [History] cloZAPine [Clozaril] 200 mg PO BID@0700,1500 07/04/22 [History] clonazePAM [KlonoPIN] 0.5 mg PO BID@0700,1900 11/11/22 [History] Carbidopa-Levodopa 25-100 mg [Sinemet 25-100 mg] 1 tab PO QID@07,,,05/31/23 [History] DULoxetine HCL [Cymbalta] 60 mg PO DAILY@0700 05/31/23 [History] Tamsulosin [Flomax] 0.4 mg PO HS@1900 05/31/23 [History] Sennosides/Docusate Sodium [Senna Plus 8.6-50 mg Tablet] 1 tab PO TID PRN 06/14/23 [History] Lidocaine 5% Patch [Lidoderm 5% Patch] 1 patch TOPICAL DAILY PRN 09/27/23 [History] Midodrine [ProAmatine] 2.5 mg PO BID-W/MEALS tab 09/29/23 [Rx] Follow up Appointment(s)/Referral(s): [facility] [Provider Group] - 1 Week [facility] [Primary Care Provider] - 1-2 days Discharge/Stand Alone Forms: Adult Foster [facility] List, Assisted Living Facilities Discharge Disposition: HOME WITH HOME HEALTH SERVICES
--- NOTE | 2023-09-29 11:54 | P.PN ---
Subjective Progress Note Date: 09/29/23 Chief complaint: Chest pain History of present illness: This is a 67-year-old gentleman with a past medical history significant for intellectual issues and Parkinson disease currently residing at [facility] as well as coronary artery disease with prior stenting of the right coronary artery and also hypertension and dyslipidemia and a history of orthostatic hypotension as well as multiple comorbid conditions. We are asked to see the [facility] today in the emergency department for chest discomfort. The patient is extremely poor historian he does not recall and know why he is in the hospital. Currently he denies any chest pain or chest discomfort but according to the ER note the patient was experiencing symptoms of chest discomfort. No dizziness or lightheadedness and no shortness of breath and no feeling of heart racing or fluttering and no presyncope or syncope. He underwent further workup including an EKG showing sinus mechanism with no ischemic ST or T wave abnormalities. Chest x-ray did not show any acute abnormalities. He underwent further cardiac investigation as well including cardiac enzymes came in to be unremarkable. The patient is hemodynamically stable. He was seen by our service in 2022 where he underwent a workup including an echo and that showed normal LV systolic function with no significant valvular abnormalities. We tried to contact the patient's sister to obtain further details about the reason he was admitted to the hospital but we were unable to get hold of her. The examination is remarkable for regular rate and rhythm with a soft systolic murmur at the right upper sternal border with a clear breathing sounds bilaterally and no carotid bruit and no lower extremities edema noted. 3/ Patient states that the reason he came into the hospital because he was walking and falling. He did have chest pain at home that lasted for half hour but has had no recurrence of the chest pain. Blood pressure 115/73, heart rate 70, pulse ox 90% on room air. Repeat blood work reveals sodium 136, potassium 4.1, creatinine 0.61. The examination is remarkable for regular rate and rhythm with a soft systolic murmur at the right upper sternal border with a clear breathing sounds bilaterally and no carotid bruit and no lower extremities edema noted. 09/28 Echocardiogram reveals normal LV function. Blood pressure 148/90, heart rate in the 70s and 80s, pulse ox 97% on room air. The examination is remarkable for regular rate and rhythm with a soft systolic murmur at the right upper sternal border with a clear breathing sounds bilaterally and no lower extremities edema noted. Assessment Coronary artery disease with prior stenting of the RCA History of orthostatic hypotension Hypertension and dyslipidemia Parkinson disease Plan Acute coronary event was ruled out The patient is stable from a cardiovascular standpoint of view Patient is cleared for discharge from cardiology and may follow-up with Dr. MEGAN Vazquez in 1 to 2 weeks. Nurse practitioner note has been reviewed, I agree with documented findings and plan of care. Patient was seen and examined. Objective - Vital Signs Vital signs: Vital Signs Temp 97.5 F L 09/29/23 07:00 Pulse 73 09/29/23 07:00 Resp 19 09/29/23 07:00 BP 148/90 09/29/23 07:00 Pulse Ox 97 09/29/23 07:00 FiO2 Intake & Output 09/28/23 09/29/23 09/29/23 18:59 06:59 18:59 Intake Total 826 2140 Output Total 525 1340 Balance 301 800 Intake: Intake, IV Titration 1560 Amount Sodium Chloride 0.9% 1, 1560 000 ml @ 130 mls/hr IV . Q7H42M [facility] Rx#:[id number] Oral 826 580 Output: Urine 525 1340 Other: Voiding Method Urinal Urinal # Voids 1 # Bowel Movements 1 1 - Labs CBC & Chem 7: 09/27/23 04:05 09/28/23 08:27 Labs: Abnormal Lab Results - Last 24 Hours (Table) 09/28/23 Range/Units 08:27 Sodium 136 L (137-145) mmol/L Carbon Dioxide 21 L (22-30) mmol/L Creatinine 0.61 L (0.66-1.25) mg/dL Glucose 128 H (74-99) mg/dL Calcium 8.3 L (8.4-10.2) mg/dL
== END 2023-09-29 14:15 | disposition home health service (06) ==
LOC: SUPCPDRO 18:58 → EC 18:58 → 6NMEDSUR 22:51 → 1SOBS 09-27 13:36
PROVIDERS: ADMIT Internal Medicine; ATTEND Internal Medicine
DX: R07.89 Other chest pain (principal); J96.01 Acute respiratory failure with hypoxia; E86.1 Hypovolemia; E87.1 Hypo-osmolality and hyponatremia; I95.1 Orthostatic hypotension; I25.10 Atherosclerotic heart disease of native coronary artery without angina pectoris; G20.A1 Parkinson's disease without dyskinesia, without mention of fluctuations; N40.0 Benign prostatic hyperplasia without lower urinary tract symptoms; F79 Unspecified intellectual disabilities; F20.9 Schizophrenia, unspecified; R79.89 Other specified abnormal findings of blood chemistry; E78.5 Hyperlipidemia, unspecified; I10 Essential (primary) hypertension; I25.2 Old myocardial infarction; Z79.82 Long term (current) use of aspirin; Z79.02 Long term (current) use of antithrombotics/antiplatelets; Z79.899 Other long term (current) drug therapy; Z95.5 Presence of coronary angioplasty implant and graft; Z11.52 Encounter for screening for COVID-19; Z11.59 Encounter for screening for other viral diseases
CPT/HCPCS: 96360; 96361; 96372 ×3; 99285; 36415; 93005; 93306; 85379; 83880; 80053; 80048 ×2; 83605; 84484 ×2; 85025 ×2; 85610; 85730; 87636; 71046; G0378 ×5; J1644 ×2; S0136 ×3

== ENCOUNTER 2023-11-18 13:25 | Observation (INO) | payer OTHER, MEDICARE ==
[2023-11-18 16:21] LABS: Basophils % (A) 0 %; Eosinophils # (A) 0.2 k/uL (0-0.7); Eosinophils % (A) 2 %; HCT 37.1 % (39.0-53.0); HGB 11.8 gm/dL (13.0-17.5); Lymphocytes # (A) 1.2 k/uL (1.0-4.8); Lymphocytes % (A) 11 %; MCH 27.4 pg (25.0-35.0); MCHC 31.7 g/dL (31.0-37.0); MCV 86.3 fL (80.0-100.0); Monocytes # (A) 0.5 k/uL (0-1.0); Monocytes % (A) 5 %; Neutrophils # (A) 8.6 k/uL (1.3-7.7); Neutrophils % (A) 81 %; Platelet Count 258 k/uL (150-450); RDW 15.4 % (11.5-15.5); WBC 10.6 k/uL (3.8-10.6)
[2023-11-18 16:39] LABS: ALT 8 U/L (4-49); AST 17 U/L (17-59); Acetaminophen <10.0 ug/mL; African American GFR (CKD) >90 (>60 ml/min/1.73 sqM); Albumin 4.1 g/dL (3.5-5.0); Alcohol <10 mg/dL; Alkaline Phosphatase 81 U/L (38-126); Anion Gap 8 mmol/L; Blood Urea Nitrogen 11 mg/dL (9-20); Calcium 8.8 mg/dL (8.4-10.2); Carbon Dioxide 23 mmol/L (22-30); Chloride 94 mmol/L (98-107); Glucose 138 mg/dL (74-99); Non-African American GFR(CKD) >90 (>60 ml/min/1.73 sqM); Potassium 4.4 mmol/L (3.5-5.1); Salicylate <1.0 mg/dL; Sodium 125 mmol/L (137-145); Total Bilirubin 0.6 mg/dL (0.2-1.3); Total Protein 6.3 g/dL (6.3-8.2)
[2023-11-18 17:14] LABS: Appearance,Urine Clear (Clear); Bacteria,Urine Occasional /hpf; Bilirubin,Urine Negative (Negative); Blood,Urine Trace (Negative); Color,Urine Colorless; Glucose,Urine (UA) Negative (Negative); Ketones,Urine Negative (Negative); Leukocyte Esterase,Urine Large (Negative); Mucus,Urine Rare /hpf; Nitrite,Urine Positive (Negative); Protein,Urine Negative (Negative); RBC,Urine 3 /hpf (0-5); Specific Gravity,Urine 1.008 (1.001-1.035); Urobilinogen,Urine <2.0 mg/dL (<2.0); WBC,Urine 22 /hpf (0-5)
[2023-11-18 17:24] LABS: Amphetamine Screen,Urine Not Detected (NotDetected); Barbiturate Screen,Urine Not Detected (NotDetected); Benzodiazepines Screen,Urine Not Detected (NotDetected); Cocaine Screen,Urine Not Detected (NotDetected); Methadone Screen, Urine Not Detected (NotDetected); Opiate Screen,Urine Not Detected (NotDetected); Oxycodone Screen, Urine Not Detected (NotDetected); Phencyclidine Screen,Urine Not Detected (NotDetected); Tricyclic Antidepressant,Urine Detected (NotDetected); Urn Cannabinoid Scrn Not Detected (NotDetected)
--- NOTE | 2023-11-18 18:09 | ED ---
General Adult HPI - General Chief complaint: Psychiatric Symptoms Stated complaint: Mental health eval Source: patient Mode of arrival: ambulatory Limitations: no limitations - History of Present Illness Initial comments: González is a pleasant 67-year-old gentleman with a history of Parkinson's, cognitive delay he presents the ER today with his sister who is his guardian. Sister reports the patient has lived at the same facility for a number of years but over the past week he has been having episodes where he starts saying he is hearing voices last night he called her stating that he felt like a spirit or the devil entered his body. Patient is been unwilling to go back to his bedroom at the facility expressing some significant fear. This is all very atypical for the patient. History does note the patient was taken off of his Cymbalta last week by his psychiatrist Dr. Simmons at the [place]. She is not certain if this contributes to his symptoms. Sister reports that the patient symptoms seem to be exacerbated around 5 PM which is when he starts complaining of hearing voices and not wanting to go back to his room after dinner. However today he did not want to go back to his room after lunch stating that he could hear the voices. Sister does note that he was recently treated for urinary tract infection he completed those antibiotics earlier this week. - Related Data Home Medications Medication Instructions Recorded Confirmed Omeprazole 40 mg PO DAILY@1500 12/09/20 11/18/23 Aspirin 81 mg PO DAILY@0700 07/28/21 11/18/23 cloZAPine [Clozaril] 300 mg PO HS@1900 02/03/22 11/18/23 Atorvastatin [Lipitor] 80 mg PO HS@1900 07/04/22 11/18/23 Clopidogrel [Plavix] 75 mg PO DAILY@0700 07/04/22 11/18/23 cloZAPine [Clozaril] 200 mg PO BID@0700,1500 07/04/22 11/18/23 clonazePAM [KlonoPIN] 0.5 mg PO BID@0700,1900 11/11/22 11/18/23 Carbidopa-Levodopa 25-100 mg 1 tab PO QID@07,11,15,19 05/31/23 11/18/23 [Sinemet 25-100 mg] DULoxetine HCL [Cymbalta] 60 mg PO DAILY@0700 05/31/23 11/18/23 Tamsulosin [Flomax] 0.4 mg PO HS@1900 05/31/23 11/18/23 Sennosides/Docusate Sodium [Senna 1 tab PO TID PRN 06/14/23 11/18/23 Plus 8.6-50 mg Tablet] Lidocaine 5% Patch [Lidoderm 5% 1 patch TRANSDERM DAILY PRN 09/27/23 11/18/23 Patch] Acetaminophen Tab [Tylenol Tab] 1,000 mg PO BID PRN 11/18/23 11/18/23 Metoprolol Succinate (ER) [Toprol 50 mg PO DAILY@0800 11/18/23 11/18/23 Xl] Midodrine HCl [ProAmantine] 2.5 mg PO BID@0800,1500 11/18/23 11/18/23 Allergies Allergy/AdvReac Type Severity Reaction Status Date / Time No Known Allergies Allergy Verified 11/18/23 16:47 Review of Systems ROS Statement: Those systems with pertinent positive or pertinent negative responses have been documented in the HPI. ROS Other: All systems not noted in ROS Statement are negative. Past Medical History Past Medical History: Hyperlipidemia, Hypertension, Myocardial Infarction (NH) Additional Past Medical History / Comment(s): renal CA with surgery, parkinson's Last Myocardial Infarction Date:: unknown History of Any Multi-Drug Resistant Organisms: None Reported Past Surgical History: Heart Catheterization With Stent, Orthopedic Surgery Additional Past Surgical History / Comment(s): cryoablation for renal CA, Heart Catheterization 04/23/2021, Past Anesthesia/Blood Transfusion Reactions: No Reported Reaction Date of Last Stent Placement:: 04/23/21 Type of Cardiac Device: Biventricular Pacemaker, Unknown Device Placement Date:: unknown Past Psychological History: Depression, Panic Disorder, Schizophrenia Smoking Status: Never smoker Past Alcohol Use History: None Reported Past Drug Use History: None Reported - Past Family History Family Family Medical History: No Reported History General Exam - General Exam Comments Initial Comments: Physical Exam GENERAL: Patient is well-developed and well-nourished. Patient is nontoxic and well-hydrated and is in no distress. HENT: Normocephalic, Atraumatic. EYES: PERRL, EOMI PULMONARY: Unlabored respirations. CARDIOVASCULAR: RRR Warm and well perfused extremities ABDOMEN: Non-distended SKIN: No rashes or bruising : Deferred NEUROLOGIC: Alert and oriented Normal speech Patient is noted to be drooling during exam MUSCULOSKELETAL: Moving all extremities with no apparent injury PSYCHIATRIC: No SI/HI Limitations: no limitations Course Vital Signs 11/18/23 11/18/23 11/18/23 13:26 17:54 19:17 Temperature 98 F Pulse Rate 67 62 68 Respiratory 20 18 18 Rate Blood Pressure 136/87 167/99 140/65 O2 Sat by Pulse 99 99 99 Oximetry Medical Decision Making - Medical Decision Making Was pt. sent in by a medical professional or institution (, PA, BOOKER, urgent care, hospital, or care home...) When possible be specific @ -Yes caregivers at care home Did you speak to anyone other than the patient for history (EMS, parent, family, police, friend...)? What history was obtained from this source @ -Sister at bedside Did you review nursing and triage notes (agree or disagree)? Why? @ -I reviewed and agree with nursing and triage notes Were old charts reviewed (outside hosp., previous admission, EMS record, old EKG, old radiological studies, urgent care reports/EKG's, care home records)? Report findings @ -Previous labs were reviewed Differential Diagnosis (chest pain, altered mental status, abdominal pain women, abdominal pain men, vaginal bleeding, weakness, fever, dyspnea, syncope, headache, dizziness, GI bleed, back pain, seizure, CVA, palpatations, mental health)? @ -Differential Altered Mental Status: Hypoglycemia, DKA, hypercapnia, ETOH, overdose, CO poisoning, trauma, myxedema coma, HTN encephalopathy, infection, encephalitis, psychosis, intercranial hemorrhage, hepatic encephalopathy, meningitis, CVA, this is not meant to be an all-inclusive list EKG interpreted by me (3pts min.). @ -As above X-rays interpreted by me (1pt min.). @ -None done CT interpreted by me (1pt min.). @ -CT of the brain with no intracranial bleed no skull fracture, CT of the cervical spine with no obvious malalignment, CT of the thoracolumbar with no obvious fractures or malalignment U/S interpreted by me (1pt. min.). @ -None done What testing was considered but not performed or refused? (CT, X-rays, U/S, labs)? Why? @ -None What meds were considered but not given or refused? Why? @ -None Did you discuss the management of the patient with other professionals (professionals i.e. , PA, BOOKER, lab, RT, psych nurse, social service director, lens polisher hand, teacher, ground defence officer, embedded case manager)? Give summary @ -Discussed with admitting physician Was smoking cessation discussed for >3mins.? @ -No Was critical care preformed (if so, how long)? @ -No Were there social determinants of health that impacted care today? How? (Homelessness, low income, unemployed, alcoholism, drug addiction, transportation, low edu. Level, literacy, decrease access to med. care, retirement, rehab)? @ -No Was there de-escalation of care discussed even if they declined (Discuss DNR or withdrawal of care, Hospice)? DNR status @ -No What co-morbidities impacted this encounter? (DM, HTN, Smoking, COPD, CAD, Can cer, CVA, ARF, Chemo, Hep., AIDS, mental health diagnosis, sleep apnea, morbid obesity)? @ -Mental health diagnosis Was patient admitted / discharged? Hospital course, mention meds given and route, prescriptions, significant lab abnormalities, going to OR and other pertinent info. @ -Admit Patient was seen and evaluated patient is a pleasant 67-year-old with Parkinson's who is coming in with what sounds like sundowning however workup was initiated and patient was noted to be hyponatremic with a urinary tract infection. Rocephin was ordered for the UTI gentle IV fluids were ordered. Patient will be admitted. Patient was evaluated by psychiatry nurse who recommended medical management and outpatient follow-up with psychiatry. Undiagnosed new problem with uncertain prognosis? @ -No Drug Therapy requiring intensive monitoring for toxicity (Heparin, Nitro, Insulin, Cardizem)? @ -No Were any procedures done? @ -No Diagnosis/symptom? @ -Hyponatremia, urinary tract infection, altered mental status Acute, or Chronic, or Acute on Chronic? @ -Acute Uncomplicated (without systemic symptoms) or Complicated (systemic symptoms)? @ -Complicated Side effects of treatment? @ -No Exacerbation, Progression, or Severe Exacerbation? @ -No Poses a threat to life or bodily function? How? (Chest pain, [place], NH, pneumonia, PE, COPD, DKA, ARF, appy, cholecystitis, CVA, Diverticulitis, Homicidal, Suicidal, threat to staff... and all critical care pts) @ -Potential can lead to seizure, and - Lab Data Result diagrams: 11/18/23 16:09 11/18/23 16:09 Lab Results 11/18/23 11/18/23 11/18/23 Range/Units 16:09 16:09 16:09 WBC 10.6 (3.8-10.6) k/uL RBC 4.30 (4.30-5.90) m/uL Hgb 11.8 L (13.0-17.5) gm/dL Hct 37.1 L (39.0-53.0) % MCV 86.3 (80.0-100.0) fL MCH 27.4 (25.0-35.0) pg MCHC 31.7 (31.0-37.0) g/dL RDW 15.4 (11.5-15.5) % Plt Count 258 (150-450) k/uL MPV 8.0 Neutrophils % 81 % Lymphocytes % 11 % Monocytes % 5 % Eosinophils % 2 % Basophils % 0 % Neutrophils # 8.6 H (1.3-7.7) k/uL Lymphocytes # 1.2 (1.0-4.8) k/uL Monocytes # 0.5 (0-1.0) k/uL Eosinophils # 0.2 (0-0.7) k/uL Basophils # 0.0 (0-0.2) k/uL Sodium 125 L (137-145) mmol/L Potassium 4.4 (3.5-5.1) mmol/L Chloride 94 L (98-107) mmol/L Carbon Dioxide 23 (22-30) mmol/L Anion Gap 8 mmol/L BUN 11 (9-20) mg/dL Creatinine 0.74 (0.66-1.25) mg/dL Est GFR (CKD-EPI)AfAm >90 (>60 ml/min/1.73 sqM) Est GFR (CKD-EPI)NonAf >90 (>60 ml/min/1.73 sqM) Glucose 138 H (74-99) mg/dL Calcium 8.8 (8.4-10.2) mg/dL Total Bilirubin 0.6 (0.2-1.3) mg/dL AST 17 (17-59) U/L ALT 8 (4-49) U/L Alkaline Phosphatase 81 (38-126) U/L Total Protein 6.3 (6.3-8.2) g/dL Albumin 4.1 (3.5-5.0) g/dL TSH 1.480 (0.465-4.680) mIU/L Urine Color Colorless Urine Appearance Clear (Clear) Urine pH 6.0 (5.0-8.0) Ur Specific [place] 1.008 (1.001-1.035) Urine Protein Negative (Negative) Urine Glucose (UA) Negative (Negative) Urine Ketones Negative (Negative) Urine Blood Trace H (Negative) Urine Nitrite Positive (Negative) Urine Bilirubin Negative (Negative) Urine Urobilinogen <2.0 (<2.0) mg/dL Ur Leukocyte Esterase Large H (Negative) Urine RBC 3 (0-5) /hpf Urine WBC 22 H (0-5) /hpf Urine Bacteria Occasional H (None) /hpf Urine Mucus Rare H (None) /hpf Salicylates <1.0 mg/dL Urine Opiates Screen Not Detected (NotDetected) Ur Oxycodone Screen Not Detected (NotDetected) Urine Methadone Screen Not Detected (NotDetected) Acetaminophen <10.0 ug/mL Ur Barbiturates Screen Not Detected (NotDetected) U Tricyclic Antidepress Detected H (NotDetected) Ur Phencyclidine Scrn Not Detected (NotDetected) Ur Amphetamines Screen Not Detected (NotDetected) U Methamphetamines Scrn Not Detected (NotDetected) U Benzodiazepines Scrn Not Detected (NotDetected) Urine Cocaine Screen Not Detected (NotDetected) U Marijuana (THC) Screen Not Detected (NotDetected) Serum Alcohol <10 mg/dL Disposition Clinical Impression: Hyponatremia, Altered mental status, UTI (urinary tract infection) Disposition: ADMITTED IP TO THIS HOSP Condition: Serious Is patient prescribed a controlled substance at d/c from ED?: No Referrals: [facility],Clinic [Primary Care Provider] - 1-2 days
[2023-11-18] MEDS: cefTRIAXone IN SWFI 1,000 MG/10 ML SYRINGE IVP STA (19:21)
--- NOTE | 2023-11-18 19:22 | CT ---
EXAMINATION TYPE: CT brain cspine wo con CT DLP: combined 2623 mGycm, Automated exposure control for dose reduction was used. DATE OF EXAM: 11/18/2023 6:36 PM COMPARISON: None. CLINICAL INDICATION:Male, 67 years old with history of falls; Patient states that he has been hearing voices. Increased weakness with falls. TECHNIQUE: Brain: Multiple axial CT images of the brain were obtained without IV contrast. Cspine: Axial CT images from the skull base to the inferior aspect of T2 we obtained without intraven ous contrast. Coronal and sagittal reformatted images were also reviewed. FINDINGS: Brain: Extra-axial spaces: No abnormal extra-axial fluid collections. Ventricular system: Appear dilated in proportion to the degree of sulcal prominence and cerebral atro phy. Cerebral parenchyma: No increased attenuation to suggest acute intraparenchymal hemorrhage. The gra y-white matter interface appears maintained. Moderate to severe generalized brain atrophy. Scattere d hypoattenuating areas are seen within the cerebral white matter, nonspecific but most often seen wi th chronic microvascular ischemic changes; moderate in degree. Cerebellum: No acute abnormality. Mass effect: No evidence of mass effect or midline shift. Intracranial vasculature: Atherosclerotic calcifications of the larger arteries near the skull base. Soft tissues: No acute abnormality Visualized orbits: Orbital contents appear grossly intact. Calvarium/osseous structures: No evidence of calvarial fracture. Paranasal sinuses and mastoid air cells: Small mucous retention cyst or polyp in the inferior left ma xillary sinus. Sinuses are otherwise clear. The mastoid air cells are clear. MRI is more sensitive for detecting acute processes such as infarct, and may be considered if clinica lly warranted. Cervical spine: Exam limited by patient positioning in the gantry. Fracture: None seen. Osseous structures, spinal canal/neural foramina: Craniocervical junction appears intact. There is mi ld/moderate degenerative change of the atlantooccipital articulation. Moderate degenerative changes o f the anterior C1-C2 articulation with near complete loss of joint space and some marginal osteophyte s. Minimal retrodental soft tissue with some faint calcification, without significant narrowing of th e spinal canal. Moderate multilevel degenerative disc changes and facet arthrosis throughout the cerv ical spine. Anterior more than posterior disc marginal osteophytes from the C4-C7 levels. No critical canal stenosis is seen. Most significant appears to be severe left neural foraminal stenosis and mo derate spinal canal stenosis at C6-C7. Vertebral alignment: No traumatic malalignment. Reversal of the normal cervical lordosis. Mild degene rative anterolisthesis C3 on C4.. Neck soft tissues: No acute finding.. Calcifications noted involving the cervical carotid arteries mo stly bifurcation regions. Other: Scarcely included lung apices show no acute infiltrate or pneumothorax. IMPRESSION: CT head: 1. No CT evidence of an acute intracranial abnormality. 2. Atrophy and chronic microvascular ischemic white matter changes. CT cervical spine: 1. No evidence of acute cervical spine fracture or traumatic malalignment. 2. Moderate cervical spondylosis.
--- NOTE | 2023-11-18 19:40 | CT ---
EXAMINATION TYPE: CT thor lumbar spine wo con CT DLP: combined 2623 mGycm, Automated exposure control for dose reduction was used. DATE OF EXAM: 11/18/2023 6:36 PM CLINICAL INDICATION:Male, 67 years old with history of falls, back pain; Increased weakness with fall s. COMPARISON: TECHNIQUE: Axial images of the thoracic and lumbar spine were obtained without contrast. Coronal and sagittal reformats were performed. CT Contrast: IV Contrast used: None Oral contrast used: None FINDINGS: Normal osseous mineralization without evidence of lytic/blastic lesion. There is straightening of the normal thoracic kyphosis and lumbar lordosis. Mild degenerative anterolisthesis L5 on S1, otherwise no significant listhesis. There is mild S-shaped curvature of the thoracic spine. Vertebral body heights are maintained. No evidence of compression or other fracture. Mild degenerative changes of the thoracic spine without evidence of significant canal or neural lindsay inal stenosis. Mild/moderate degenerative changes of the lumbar spine. Greatest degree of degenerative disc disease at the L5-S1 level with loss of disc height, vacuum disc phenomenon, circumferential disc bulging wit h small marginal osteophytes mostly anteriorly. Mild facet arthrosis in the upper to mid lumbar spine , becoming moderate at the L5-S1 level and worse on the left than right. L1-L2 and L2-L3, no significant spinal canal or neural foraminal stenosis. L3-L4, there is mild circumferential canal stenosis. Mild bilateral neuroforaminal stenoses. L4-L5, there is moderate circumferential canal stenosis, mild to moderate neuroforaminal stenoses. L5-S1, moderate canal and neuroforaminal stenoses. Evaluation of the canal and contents is limited on CT. No gross evidence of focal disc herniation. If clinically warranted MRI could be considered for further evaluation. Other: Imaged portions of the body show mild chronic senescent changes of the imaged lungs, mild card iomegaly, moderate calcification of the aorta and coronary arteries, low-attenuation thickening of th e adrenal glands likely related to adenomatoid change, a 2.7 cm peripherally calcified crenated-appea ring right renal lesion which could represent old cyst or other treated/calcified lesion. No acute fr acture of the imaged ribs or iliac bones. Mild degenerative change of the SI joints. IMPRESSION: 1. No evidence of acute fracture or traumatic malalignment in the thoracic or lumbar spine. 2. Multilevel mild/moderate chronic degenerative changes, as described above.
[2023-11-18] MEDS ORDERED: NALOXONE 0.4 MG/ML 1 ML VIAL IV PRN (21:43)
[2023-11-18] MEDS: SODIUM CHLORIDE 0.9% 1,000 ML IV SCH (23:05)
[2023-11-19] MEDS ORDERED: SENNOSIDES-DOCUSATE SODIUM 1 EACH TAB PO PRN (02:06)
--- NOTE | 2023-11-19 02:16 | P.HPIM ---
History of Present Illness H&P Date: 11/18/23 Chief Complaint: Confusion disorientation and hallucinations 67-year-old male with cognitive delay, Parkinson's disease Patient lives at a group facility he was brought in by his sister due to concerns regarding his cognition and behavior she reports that he has been seeing and hearing things related to spirits and devil. He is manifesting some behaviors we are he is not listening to orders refusing to go back to his room. She reports a recent change in his medication where his Cymbalta was was discontinued by his psychiatrist. He was recently also treated for urinary tract infection Patient himself unable to provide any meaningful history due to developmental d elay. He reports that he is not feeling well otherwise patient unable to provide any meaningful history No report of smoking illicit drugs or heavy alcohol review of systems Pertinent positives as noted in HPI. All other systems were reviewed and are negative on exam Constitutional: No acute distress, cooperative Eyes: Anicteric sclerae, moist conjunctiva, Pupils equal round reactive to light ENMT: NC/AT Oropharynx clear, no erythema, or exudates Neck: Supple, no masses, or JVD No carotid bruits No thyromegaly Lungs: Clear to auscultation Clear to percussion Normal respiratory effort, no accessory muscle use Cardiovascular: Heart regular in rate and rhythm, No murmurs, gallops, or rubs No peripheral edema Abdominal: Soft Nontender, no guarding, rebound or rigidity Abdomen moving with respiration Normoactive bowel sounds Extremities: No digital cyanosis No clubbing Pedal pulses intact and symmetrical Radial pulses intact and symmetrical No calf tenderness Psychiatric: Alert and oriented to person, place Neuro Muscles Strength 4/5 in all 4 extremities Sensation to light touch grossly present throughout Cranial nerves II-XII grossly intact Past Medical History Past Medical History: Hyperlipidemia, Hypertension, Myocardial Infarction (IA) Additional Past Medical History / Comment(s): renal CA with surgery, parkinson's Last Myocardial Infarction Date:: unknown History of Any Multi-Drug Resistant Organisms: None Reported Past Surgical History: Heart Catheterization With Stent, Orthopedic Surgery Additional Past Surgical History / Comment(s): cryoablation for renal CA, Heart Catheterization 04/23/2021, Past Anesthesia/Blood Transfusion Reactions: No Reported Reaction Date of Last Stent Placement:: 04/23/21 Type of Cardiac Device: Biventricular Pacemaker, Unknown Device Placement Date:: unknown Past Psychological History: Depression, Panic Disorder, Schizophrenia Smoking Status: Never smoker Past Alcohol Use History: None Reported Past Drug Use History: None Reported - Past Family History Family Family Medical History: No Reported History Medications and Allergies Home Medications Medication Instructions Recorded Confirmed Type Omeprazole 40 mg PO DAILY@1500 12/09/20 11/18/23 History Aspirin 81 mg PO DAILY@0700 07/28/21 11/18/23 History cloZAPine [Clozaril] 300 mg PO HS@1900 02/03/22 11/18/23 History Atorvastatin [Lipitor] 80 mg PO HS@1900 07/04/22 11/18/23 History Clopidogrel [Plavix] 75 mg PO DAILY@0700 07/04/22 11/18/23 History cloZAPine [Clozaril] 200 mg PO BID@0700,1500 07/04/22 11/18/23 History clonazePAM [KlonoPIN] 0.5 mg PO BID@0700,1900 11/11/22 11/18/23 History Carbidopa-Levodopa 25-100 mg 1 tab PO QID@07,11,,05/31/23 11/18/23 History [Sinemet 25-100 mg] DULoxetine HCL [Cymbalta] 60 mg PO DAILY@0700 05/31/23 11/18/23 History Tamsulosin [Flomax] 0.4 mg PO HS@1900 05/31/23 11/18/23 History Sennosides/Docusate Sodium [Senna 1 tab PO TID PRN 06/14/23 11/18/23 History Plus 8.6-50 mg Tablet] Lidocaine 5% Patch [Lidoderm 5% 1 patch TRANSDERM DAILY PRN 09/27/23 11/18/23 History Patch] Acetaminophen Tab [Tylenol Tab] 1,000 mg PO BID PRN 11/18/23 11/18/23 History Metoprolol Succinate (ER) [Toprol 50 mg PO DAILY@0800 11/18/23 11/18/23 History Xl] Midodrine HCl [ProAmantine] 2.5 mg PO BID@0800,1500 11/18/23 11/18/23 History Allergies Allergy/AdvReac Type Severity Reaction Status Date / Time No Known Allergies Allergy Verified 11/18/23 16:47 Physical Exam Vitals: Vital Signs Temp Pulse Resp BP Pulse Ox 11/18/23 19:17 68 18 140/65 99 11/18/23 17:54 62 18 167/99 99 11/18/23 13:26 98 F 67 20 136/87 99 Intake and Output 11/18/23 11/18/23 11/19/23 14:59 22:59 06:59 Other: Weight 86.183 kg Results CBC & Chem 7: 11/18/23 16:09 11/18/23 16:09 Labs: Abnormal Lab Results - Last 24 Hours (Table) 11/18/23 11/18/23 11/18/23 Range/Units 16:09 16:09 16:09 Hgb 11.8 L (13.0-17.5) gm/dL Hct 37.1 L (39.0-53.0) % Neutrophils # 8.6 H (1.3-7.7) k/uL Sodium 125 L (137-145) mmol/L Chloride 94 L (98-107) mmol/L Glucose 138 H (74-99) mg/dL Urine Blood Trace H (Negative) Ur Leukocyte Esterase Large H (Negative) Urine WBC 22 H (0-5) /hpf Urine Bacteria Occasional H (None) /hpf Urine Mucus Rare H (None) /hpf U Tricyclic Antidepress Detected H (NotDetected) Assessment and Plan Assessment: 67-year-old male with cognitive delays Parkinson disease was brought in from [facility] by family member due to abnormal behavior, visual and auditory hallucinations, and cognitive decline he was recently taken off his Cymbalta by his psychiatrist and was recently treated for UTI as an outpatient I discussed case with ED doctor accepted the admission for acute urinary tract infection resulting in possibly worsening cognition with anticipated length of stay more than 2 midnights Acute metabolic encephalopathy Urinary tract infection Follow-up cultures Rocephin 1 g IV piggyback daily Tylenol for fever Urine analysis positive for nitrite White count is 10.[address] showed no acute intracranial pathology Hyponatremia With sodium 125 Otherwise renal function unremarkable potassium 4.4 BUN 11 creatinine 0.7 IV fluid hydration normal saline, give 1 L bolus then continue 75 cc/h BPH continue with Flomax Hypertension continue with metoprolol 50 mg p.o. daily Schizophrenia Continue with Klonopin clozaril Parkinson disease Continue with Sinemet History of CAD Continue with aspirin statin and Plavix DVT prophylaxis heparin subcu 3 times daily Full code GI prophylaxis omeprazole 40 mg p.o. daily
[2023-11-19] MEDS: SODIUM CHLORIDE 0.9% 1,000 ML IV ONE (02:54)
[2023-11-19] MEDS: cloZAPine 100 MG TAB PO SCH ×2 (06:01→20:42)
[2023-11-19] MEDS: CARBIDOPA-LEVODOPA 25-100 MG 1 EACH TAB PO SCH (06:01)
[2023-11-19] MEDS: ASPIRIN 81 MG PO SCH (06:01)
[2023-11-19] MEDS: clonazePAM 0.5 MG TAB PO SCH (06:01)
[2023-11-19] MEDS: CLOPIDOGREL 75 MG TAB PO SCH (06:01)
[2023-11-19] MEDS ORDERED: DULoxetine HCL 60 MG CAPSULE.DR PO SCH (07:00)
[2023-11-19] MEDS ORDERED: LIDOCAINE 4% PATCH TOPICAL PRN (09:00)
[2023-11-19] MEDS: HEPARIN SODIUM,PORCINE 5,000 UNIT/ML 1 ML VIAL SQ SCH (10:41)
[2023-11-19] MEDS: METOPROLOL SUCCINATE (ER) 50 MG TAB.ER.24H PO SCH (11:15)
[2023-11-19] MEDS: ACETAMINOPHEN TAB 500 MG TAB PO PRN (12:58)
[2023-11-19 15:29] LABS: HCT 37.7 % (39.0-53.0); HGB 11.9 gm/dL (13.0-17.5); MCH 27.4 pg (25.0-35.0); MCHC 31.4 g/dL (31.0-37.0); MCV 87.2 fL (80.0-100.0); Mean Platelet Volume 7.9; Platelet Count 253 k/uL (150-450); RBC 4.33 m/uL (4.30-5.90); RDW 15.6 % (11.5-15.5); WBC 6.1 k/uL (3.8-10.6)
[2023-11-19 15:38] LABS: African American GFR (CKD) >90 (>60 ml/min/1.73 sqM); Anion Gap 7 mmol/L; Blood Urea Nitrogen 9 mg/dL (9-20); Calcium 8.5 mg/dL (8.4-10.2); Carbon Dioxide 25 mmol/L (22-30); Chloride 100 mmol/L (98-107); Glucose 139 mg/dL (74-99); Non-African American GFR(CKD) 87 (>60 ml/min/1.73 sqM); Potassium 4.4 mmol/L (3.5-5.1); Sodium 132 mmol/L (137-145)
[2023-11-19] MEDS: PANTOPRAZOLE 40 MG TABLET PO SCH (16:46)
--- NOTE | 2023-11-19 17:49 | P.PN ---
Subjective Progress Note Date: 11/19/23 Hospital course: Patient is a 67-year-old male with a past medical history of CAD with previous stenting, hypertension, hyperlipidemia, Parkinson's disease with cognitive impairment, schizophrenia, depression, and panic disorder. He presented to the emergency department from his long term secondary to confusion and visual hallucinations. Upon arrival to the emergency department, patient underwent evaluation. Vital signs showing blood pressure 136/87, heart rate 67, respiratory rate 20, temp 98.0 F, and SpO2 of 99% on room air. Labs completed and reviewed. CBC showing normocytic anemia with hemoglobin of 11.8. BMP showing hyponatremia with sodium of 125 and hypochloremia with chloride of 94 and blood glucose of 138. Liver profile was unremarkable. TSH was normal fin dings at 1.480. Urinalysis showing trace blood, leukocytes, and 22 WBCs. Urine drug screen positive for tricyclic's otherwise negative. Serum alcohol was negative at less than 10. CT head revealed atrophy and chronic microvascular ischemic white matter changes otherwise negative for acute intracranial process. CT cervical spine showing moderate cervical spondylosis otherwise negative for acute cervical spine fracture or traumatic malalignment. CT lumbar spine showing multilevel mild to moderate chronic degenerative changes with no evidence of acute fracture or traumatic malalignment. Patient admitted under our services. Physical exam: Patient seen and fully evaluated at bedside this morning. Patient pleasant and cooperative. Able to state name and that he is in the hospital, he remains confused as to why he was sent to the hospital and date/time. Currently patient denies having any pain or complaints at this time. Vital signs reviewed and stable. General: Nontoxic, no distress and appears stated age. Derm: Skin warm and dry, normal coloration for ethnicity. Head: Atraumatic, normocephalic and symmetric. Eyes: EOMs intact, no lid lag, and anicteric sclera Mouth: no lip lesions, mucus membranes moist Cardiovascular: regular rate and rhythm with normal S1S2, no murmur, positive posterior tibial pulses bilaterally, and cap refill < 2 seconds. Lungs: Respirations even, regular, and unlabored on room air. Lungs CTA bilaterally, no rhonchi, no rales, no wheezing, and no accessory muscle usage. Abdominal: soft, nontender to palpation, no guarding, no appreciable organomegaly Ext: ROM intact. No gross muscle atrophy, no edema, no contractures Neuro: Speech clear, face symmetrical and CN II-XII grossly intact with no noted focal neuro deficits Psych: Alert and oriented to person and place but confused to time and situation. Appropriate and pleasant affect. Assessment and Plan of Care: Acute metabolic encephalopathy with visual and auditory hallucinations Abnormal urinalysis, concerning for UTI Hypochloremic Hyponatremia Parkinson's disease with cognitive impairment Schizophrenia Depression Panic disorder -Patient received gentle IV fluid hydration and over the past 24 hours, sodium increasing from 1 25-1 32 and chloride increasing from 94-100. -We will continue with gentle IV fluid hydration, but decreased infusion rate to 50 cc/h of 0.9% normal saline and repeat BMP tomorrow morning. -Per documentation in chart, patient psychiatrist recently made some changes in medication and Cymbalta was discontinued. -Patient currently alert to person and place, remains confused to time and situation and per staff this is reported to be baseline mentation. -Urinalysis positive for leukocytes and 22 WBCs. Will continue IV antibiotics at this time and follow-up on urine culture. -Patient to continue daily medication regimen with carbidopa levodopa 25-100 mg tablets 4 times daily, Klonopin 0.5 mg twice daily, clozapine 200 mg twice daily and 300 mg at bedtime. History of CAD with previous stenting and biventricular pacemaker placement Hypertension Hyperlipidemia -Continue daily medication regimen with aspirin 81 mg daily, atorvastatin 80 mg nightly, Plavix 75 mg daily and metoprolol 50 mg daily. BPH Continue Flomax 0.4 mg nightly. Data reviewed: Repeat labs completed and reviewed. CBC showing stable normocytic anemia with hemoglobin of 11.9. BMP showing resolution of hypochloremia with chloride increasing from 95-100 and improvement of hyponatremia with sodium increasing from 125-132. CODE STATUS: Full code DVT prophylaxis: Heparin Anticipated discharge date: 24 to [address]: Return to long term Patient was seen independently by Nurse Pracitioner. This document was prepared using [employer] dictation software. Please allow for errors in livestock commission agent, while rare they do occur. Wilfredo Kothari NP rendered care for this patient independently, reviewed the findings and plan as documented in the note above. I did not physically speak with or examine the patient on this date. Objective - Vital Signs Vital signs: Vital Signs Temp 98 F 11/19/23 07:00 Pulse 70 11/19/23 07:00 Resp 17 11/19/23 07:00 BP 151/90 11/19/23 07:00 Pulse Ox 96 11/19/23 07:00 FiO2 Intake & Output 11/18/23 11/19/23 11/19/23 18:59 06:59 18:59 Output Total 400 Balance -400 Weight 86.183 kg 86.183 kg Output: Urine 400 - Labs CBC & Chem 7: 11/20/23 06:34 11/20/23 06:34 Labs: Abnormal Lab Results - Last 24 Hours (Table) 11/18/23 11/18/23 11/18/23 Range/Units 16:09 16:09 16:09 Hgb 11.8 L (13.0-17.5) gm/dL Hct 37.1 L (39.0-53.0) % Neutrophils # 8.6 H (1.3-7.7) k/uL Sodium 125 L (137-145) mmol/L Chloride 94 L (98-107) mmol/L Glucose 138 H (74-99) mg/dL Urine Blood Trace H (Negative) Ur Leukocyte Esterase Large H (Negative) Urine WBC 22 H (0-5) /hpf Urine Bacteria Occasional H (None) /hpf Urine Mucus Rare H (None) /hpf U Tricyclic Antidepress Detected H (NotDetected)
[2023-11-19] MEDS: TAMSULOSIN 0.4 MG CAP.ER.24H PO SCH (20:42)
[2023-11-19] MEDS: ATORVASTATIN 80 MG TAB PO SCH (20:42)
[2023-11-19] MEDS: MELATONIN 5 MG TABLET PO STA (22:41)
[2023-11-20 03:10] VITALS: RESP 16
[2023-11-20 10:25] LABS: HCT 38.2 % (39.6-50.0); HGB 12.2 g/dL (13.0-17.0); MCH 26.9 pg (27.0-32.0); MCHC 31.9 g/dL (32.0-37.0); MCV 84.1 FL (80.0-97.0); NRBC Per 100 WBC 0 X 10*3/uL (0.00-0.01); Platelet Count 287 X 10*3/uL (140-440); RBC 4.54 X 10*6/uL (4.40-5.60); RDW 16.6 % (11.5-14.5); WBC 7.53 X 10*3/uL (4.50-10.00)
[2023-11-20 11:05] LABS: BUN/Creat Ratio 9.88 Ratio (12.00-20.00); Blood Urea Nitrogen 7.9 mg/dL (9.0-27.0); Carbon Dioxide 25.5 mmol/L (21.6-31.8); Chloride 100 mmol/L (96-109); Glucose 102 mg/dL (70-110); Magnesium 2.3 mg/dL (1.5-2.4); Potassium 4.5 mmol/L (3.5-5.5); Sodium 136 mmol/L (135-145)
[2023-11-20 14:15] VITALS: BP 158/88; PULSE 62; TEMP 97.3
--- NOTE | 2023-11-20 14:33 | P.DS ---
Providers Date of admission: 11/18/23 21:43 Expected date of discharge: 11/20/23 Attending physician: Qiana Best MD Primary care physician: [facility] Hospital Course: Discharge Diagnosis: Acute metabolic encephalopathy with visual and auditory hallucinations. Resolved. Abnormal urinalysis, concerning for UTI. Patient received 2-day course of IV antibiotics with Rocephin and being discharged home on an additional 3 days of Keflex 500 mg every 6 hours. Hypochloremic Hyponatremia. Believed to be secondary to dehydration, resolved with gentle IV fluid hydration. Parkinson's disease with cognitive impairment. Patient to continue daily medication regimen with carbidopa levodopa 25-100 mg tablets 4 times daily. Schizophrenia. Patient to continue daily medication regimen with Klonopin 0.5 mg twice daily and clozapine 200 mg twice daily and 300 mg at bedtime. Panic disorder. Patient to continue daily medication regimen with Klonopin 0.5 mg twice daily and clozapine 200 mg twice daily and 300 mg at bedtime. History of CAD with previous stenting and biventricular pacemaker placement. Continue daily medication regimen with aspirin 81 mg daily, atorvastatin 80 mg nightly, Plavix 75 mg daily and metoprolol 50 mg daily. Hypertension. Continue daily medication regimen with metoprolol 50 mg daily. Hyperlipidemia. Continue daily medication regimen with atorvastatin 80 mg nightly. BPH. Continue Flomax 0.4 mg nightly. Hospital Course: Patient is a 67-year-old male with a past medical history of CAD with previous stenting, hypertension, hyperlipidemia, Parkinson's disease with cognitive impairment, schizophrenia, depression, and panic disorder. He presented to the emergency department from his assisted secondary to confusion and visual hallucinations. Upon arrival to the emergency department, patient underwent evaluation. Vital signs showing blood pressure 136/87, heart rate 67, respiratory rate 20, temp 98.0 F, and SpO2 of 99% on room air. Labs completed and reviewed. CBC showing normocytic anemia with hemoglobin of 11.8. BMP showing hyponatremia with sodium of 125 and hypochloremia with chloride of 94 and blood glucose of 138. Liver profile was unremarkable. TSH was normal findings at 1.480. Urinalysis showing trace blood, leukocytes, and 22 WBCs. Urine drug screen positive for tricyclic's otherwise negative. Serum alcohol was negative at less than 10. CT head revealed atrophy and chronic microvascular ischemic white matter changes otherwise negative for acute intracranial process. CT cervical spine showing moderate cervical spondylosis otherwise negative for acute cervical spine fracture or traumatic malalignment. CT lumbar spine showing multilevel mild to moderate chronic degenerative changes with no evidence of acute fracture or traumatic malalignment. Patient admitted under our services. His confusion with visual and auditory hallucinations fully resolved. His hypochloremic hyponatremia was treated with gentle IV fluid hydration and resolved after 48 hours. Patient received 2-day course of IV antibiotics with Rocephin and being discharged home on an additional 3 days of Keflex 500 mg every 6 hours for treatments of UTI.. Urine culture remains pending at this time. Patient is at baseline and free from any complaints at this time. Medically he is stable for discharge. Patient's sister/legal guardian at bedside to transport patient [facility] at this time. Physical exam: Vital signs reviewed and stable. General: Nontoxic, no distress and appears stated age. Derm: Skin warm and dry, normal coloration for ethnicity. Head: Atraumatic, normocephalic and symmetric. Eyes: EOMs intact, no lid lag, and anicteric sclera Mouth: no lip lesions, mucus membranes moist Cardiovascular: regular rate and rhythm with normal S1S2, no murmur, positive posterior tibial pulses bilaterally, and cap refill < 2 seconds. Lungs: Respirations even, regular, and unlabored on room air. Lungs CTA bilaterally, no rhonchi, no rales, no wheezing, and no accessory muscle usage. Abdominal: soft, nontender to palpation, no guarding, no appreciable organomegaly Ext: ROM intact. No gross muscle atrophy, no edema, no contractures Neuro: Speech clear, face symmetrical and CN II-XII grossly intact with no noted focal neuro deficits Psych: Alert and oriented to person and place but confused to time and situation. Appropriate and pleasant affect. A total of 35 minutes of time were spent preparing this complex discharge summary. Pt was discharged on 11/20/2023 at 2:26 PM. Patient was seen independently by Nurse Practitioner. This document was prepared using [employer] dictation software. Please allow for errors in telecommunications switch technician while rare they do occur. Wilfredo Kothari NP rendered care for this patient independently, reviewed the findings and plan as documented in the note above. I did not physically speak with or examine the patient on this date. Patient Condition at Discharge: Stable Plan - Discharge Summary New Discharge Prescriptions: New Cephalexin [Keflex] 500 mg PO Q6HR 3 Days #12 cap Continue Omeprazole 40 mg PO DAILY@1500 cloZAPine [Clozaril] 300 mg PO HS@1900 Carbidopa-Levodopa 25-100 mg [Sinemet 25-100 mg] 1 tab PO QID@07,,, Sennosides/Docusate Sodium [Senna Plus 8.6-50 mg Tablet] 1 tab PO TID PRN PRN Reason: Constipation Acetaminophen Tab [Tylenol] 1,000 mg PO BID PRN PRN Reason: Fever And/ Or Pain Metoprolol Succinate (ER) [Toprol XL] 50 mg PO DAILY@0800 Aspirin 81 mg PO DAILY@0700 cloZAPine [Clozaril] 200 mg PO BID@0700,1500 Clopidogrel [Plavix] 75 mg PO DAILY@0700 Atorvastatin [Lipitor] 80 mg PO HS@1900 clonazePAM [KlonoPIN] 0.5 mg PO BID@0700,1900 Tamsulosin [Flomax] 0.4 mg PO HS@1900 DULoxetine HCL [Cymbalta] 60 mg PO DAILY@0700 Lidocaine 5% Patch [Lidoderm 5% Patch] 1 patch TRANSDERM DAILY PRN PRN Reason: Pain Midodrine HCl [ProAmantine] 2.5 mg PO BID@0800,1500 Discharge Medication List Omeprazole 40 mg PO DAILY@1500 12/09/20 [History] Aspirin 81 mg PO DAILY@0700 07/28/21 [History] cloZAPine [Clozaril] 300 mg PO HS@1900 02/03/22 [History] Atorvastatin [Lipitor] 80 mg PO HS@1900 07/04/22 [History] Clopidogrel [Plavix] 75 mg PO DAILY@0700 07/04/22 [History] cloZAPine [Clozaril] 200 mg PO BID@0700,1500 07/04/22 [History] clonazePAM [KlonoPIN] 0.5 mg PO BID@0700,1900 11/11/22 [History] Carbidopa-Levodopa 25-100 mg [Sinemet 25-100 mg] 1 tab PO QID@07,11,15,19 05/31/23 [History] DULoxetine HCL [Cymbalta] 60 mg PO DAILY@0700 05/31/23 [History] Tamsulosin [Flomax] 0.4 mg PO HS@1900 05/31/23 [History] Sennosides/Docusate Sodium [Senna Plus 8.6-50 mg Tablet] 1 tab PO TID PRN 06/14/23 [History] Lidocaine 5% Patch [Lidoderm 5% Patch] 1 patch TRANSDERM DAILY PRN 09/27/23 [History] Acetaminophen Tab [Tylenol] 1,000 mg PO BID PRN 11/18/23 [History] Metoprolol Succinate (ER) [Toprol XL] 50 mg PO DAILY@0800 11/18/23 [History] Midodrine HCl [ProAmantine] 2.5 mg PO BID@0800,1500 11/18/23 [History] Cephalexin [Keflex] 500 mg PO Q6HR 3 Days #12 cap 11/20/23 [Rx] Follow up Appointment(s)/Referral(s): [facility],Clinic [Primary Care Provider] - 1-2 days Patient Instructions/Handouts: Dehydration (DC), Urinary Tract Infection in Men (DC), Hyponatremia (DC), Urinary Tract Infection in Older Adults (DC) Activity/Diet/Wound Care/Special Instructions: Activity: As tolerated with assistance. Take breaks as needed. Diet: Heart healthy and carb consistent diet. Encourage hydration. Special Instructions: Take all of your medications as directed and remember to keep all of your doctor's appointments and follow-up as needed. Thank you for allowing us to participate in your care, it was truly a pleasure having you for our patient!!! . Discharge Disposition: TRANSFER TO SNF/ECF
== END 2023-11-20 14:54 ==
LOC: EC 13:25 → 6NMEDSUR 21:43
PROVIDERS: ADMIT Internal Medicine; ATTEND Internal Medicine
DX: G93.41 Metabolic encephalopathy (principal); N39.0 Urinary tract infection, site not specified; E87.1 Hypo-osmolality and hyponatremia; N40.0 Benign prostatic hyperplasia without lower urinary tract symptoms; G20.A1 Parkinson's disease without dyskinesia, without mention of fluctuations; E78.5 Hyperlipidemia, unspecified; I25.2 Old myocardial infarction; I10 Essential (primary) hypertension; F20.9 Schizophrenia, unspecified; F32.A Depression, unspecified; F41.0 Panic disorder [episodic paroxysmal anxiety]; I25.10 Atherosclerotic heart disease of native coronary artery without angina pectoris; Z85.528 Personal history of other malignant neoplasm of kidney; Z95.0 Presence of cardiac pacemaker; Z95.5 Presence of coronary angioplasty implant and graft; Z79.02 Long term (current) use of antithrombotics/antiplatelets; Z79.82 Long term (current) use of aspirin; Z79.899 Other long term (current) drug therapy
CPT/HCPCS: 96361 ×2; 96365; 96366; 96372 ×2; 96376; 82075; 99285; 36415; 80053; 80048 ×2; 84443; 83735 ×2; 85025; 85027 ×2; 81001; 80306; 80143; 80320; 87086; 87077; 87186; 80179; 72128; 72125; 72131; 70450; G0378 ×3; J1644 ×2; J0696 ×2; S0136 ×2

== ENCOUNTER 2023-12-04 17:47 | Inpatient (IN) | payer OTHER, MEDICARE ==
[2023-12-04 19:46] LABS: Basophils % (A) 0 %; Eosinophils # (A) 0.1 k/uL (0-0.7); Eosinophils % (A) 1 %; HCT 34.7 % (39.0-53.0); HGB 11.3 gm/dL (13.0-17.5); Lymphocytes # (A) 0.9 k/uL (1.0-4.8); Lymphocytes % (A) 8 %; MCH 27.5 pg (25.0-35.0); MCHC 32.7 g/dL (31.0-37.0); MCV 84.1 fL (80.0-100.0); Mean Platelet Volume 8.2; Monocytes # (A) 0.7 k/uL (0-1.0); Monocytes % (A) 7 %; Neutrophils # (A) 9.3 k/uL (1.3-7.7); Neutrophils % (A) 83 %; Platelet Count 235 k/uL (150-450); RBC 4.12 m/uL (4.30-5.90); RDW 15.5 % (11.5-15.5); WBC 11.2 k/uL (3.8-10.6)
[2023-12-04 19:53] LABS: Appearance,Urine Clear (Clear); Bacteria,Urine Moderate /hpf; Bilirubin,Urine Negative (Negative); Blood,Urine Trace (Negative); Color,Urine Colorless; Glucose,Urine (UA) Negative (Negative); Ketones,Urine Negative (Negative); Leukocyte Esterase,Urine Large (Negative); Nitrite,Urine Negative (Negative); PH, Urine 6.5 (5.0-8.0); Protein,Urine Negative (Negative); RBC,Urine 5 /hpf (0-5); Specific Gravity,Urine 1.004 (1.001-1.035); Urobilinogen,Urine <2.0 mg/dL (<2.0); WBC,Urine >182 /hpf (0-5)
[2023-12-04 19:58] LABS: ALT 8 U/L (4-49); African American GFR (CKD) >90 (>60 ml/min/1.73 sqM); Albumin 3.9 g/dL (3.5-5.0); Alcohol <10 mg/dL; Anion Gap 7 mmol/L; Blood Urea Nitrogen 8 mg/dL (9-20); Calcium 8.9 mg/dL (8.4-10.2); Carbon Dioxide 22 mmol/L (22-30); Chloride 93 mmol/L (98-107); Glucose 93 mg/dL (74-99); Non-African American GFR(CKD) >90 (>60 ml/min/1.73 sqM); Sodium 122 mmol/L (137-145); Total Bilirubin 0.8 mg/dL (0.2-1.3)
[2023-12-04 20:00] LABS: Amphetamine Screen,Urine Not Detected (NotDetected); Barbiturate Screen,Urine Not Detected (NotDetected); Benzodiazepines Screen,Urine Not Detected (NotDetected); Cocaine Screen,Urine Not Detected (NotDetected); Methadone Screen, Urine Not Detected (NotDetected); Opiate Screen,Urine Not Detected (NotDetected); Oxycodone Screen, Urine Not Detected (NotDetected); Phencyclidine Screen,Urine Not Detected (NotDetected); Tricyclic Antidepressant,Urine Detected (NotDetected); Urn Cannabinoid Scrn Not Detected (NotDetected)
[2023-12-04 20:16] LABS: AST 24 U/L (17-59); Alkaline Phosphatase 81 U/L (38-126); Potassium 4.4 mmol/L (3.5-5.1)
[2023-12-04] MEDS ORDERED: NALOXONE 0.4 MG/ML 1 ML VIAL IV PRN (20:43)
--- NOTE | 2023-12-04 20:45 | ED ---
General Adult HPI - General Chief complaint: Psychiatric Symptoms Stated complaint: Paranoid Time Seen by Provider: 12/04/23 18:30 Source: patient, family, RN notes reviewed, old records reviewed Mode of arrival: ambulatory Limitations: altered mental status - History of Present Illness Initial comments: Is a 67-year-old male brought in by his sister for psychiatric evaluation. He has a extensive history of hypertension, hyperlipidemia, Parkinson's disease, CAD. Has a history of recurrent UTIs and hyponatremia as well. Has been more paranoid with erratic behavior and delusions lately. Has been calling 911 on a nightly basis from his nursing facility. Patient's sister finally brought him in for evaluation as she states that is becoming too much for staff as well as herself. Patient denies any suicidal or homicidal ideations, times complaints. Does endorse hearing voices. Does have a psychiatric history. Recent changes in psych meds within the last few months. Presents for further evaluation. - Related Data Home Medications Medication Instructions Recorded Confirmed Omeprazole 40 mg PO DAILY@1500 12/09/20 12/04/23 Aspirin 81 mg PO DAILY@0700 07/28/21 12/04/23 cloZAPine [Clozaril] 300 mg PO HS@1900 02/03/22 12/04/23 Atorvastatin [Lipitor] 80 mg PO HS@1900 07/04/22 12/04/23 Clopidogrel [Plavix] 75 mg PO DAILY@0700 07/04/22 12/04/23 cloZAPine [Clozaril] 200 mg PO BID@0700,1500 07/04/22 12/04/23 clonazePAM [KlonoPIN] 0.5 mg PO BID@0700,1900 11/11/22 12/04/23 Carbidopa-Levodopa 25-100 mg 1 tab PO QID@07,11,,05/31/23 12/04/23 [Sinemet 25-100 mg] DULoxetine HCL [Cymbalta] 60 mg PO DAILY@0700 05/31/23 12/04/23 Tamsulosin [Flomax] 0.4 mg PO HS@1900 05/31/23 12/04/23 Sennosides/Docusate Sodium [Senna 1 tab PO TID PRN 06/14/23 12/04/23 Plus 8.6-50 mg Tablet] Lidocaine 5% Patch [Lidoderm 5% 1 patch TRANSDERM DAILY PRN 09/27/23 12/04/23 Patch] Acetaminophen Tab [Tylenol] 1,000 mg PO BID PRN 11/18/23 12/04/23 Metoprolol Succinate (ER) [Toprol 50 mg PO DAILY@0800 11/18/23 12/04/23 XL] Midodrine HCl [ProAmantine] 2.5 mg PO BID@0800,1500 11/18/23 12/04/23 Allergies Allergy/AdvReac Type Severity Reaction Status Date / Time No Known Allergies Allergy Verified 12/04/23 18:30 Review of Systems ROS Statement: Those systems with pertinent positive or pertinent negative responses have been documented in the HPI. Review of Systems: CONST: Denies fever EYES: Denies blurry vision ENT: Denies nasal congestion C/V: Denies Chest pain RESP: Denies shortness of breath GI: Denies abdominal pain : Denies dysuria SKIN: Denies rash. MSK: Denies joint pain. NEURO: Denies headache ROS Other: All systems not noted in ROS Statement are negative. Past Medical History Past Medical History: Hyperlipidemia, Hypertension, Myocardial Infarction ([place]) Additional Past Medical History / Comment(s): renal CA with surgery, parkinson's Last Myocardial Infarction Date:: unknown History of Any Multi-Drug Resistant Organisms: None Reported Past Surgical History: Heart Catheterization With Stent, Orthopedic Surgery Additional Past Surgical History / Comment(s): cryoablation for renal CA, Heart Catheterization 04/23/2021, Past Anesthesia/Blood Transfusion Reactions: No Reported Reaction Date of Last Stent Placement:: 04/23/21 Type of Cardiac Device: Biventricular Pacemaker, Unknown Device Placement Date:: unknown Past Psychological History: Depression, Panic Disorder, Schizophrenia Smoking Status: Never smoker Past Alcohol Use History: None Reported Past Drug Use History: None Reported - Past Family History Family Family Medical History: No Reported History General Exam - General Exam Comments Initial Comments: General: Appears in no acute distress. HEAD: Normal with no signs of head trauma. EYES: PERRLA, EOMI, conjunctiva normal, no discharge. ENT: Hearing grossly intact, normal oropharynx. RESPIRATORY: Clear breath sounds bilaterally. No wheezes, rales, or rhonchi. C/V: Regular rate and rhythm. S1 and S2 auscultated, no edema, peripheral pulses 2+ and intact throughout ABD: Abd is soft, nontender, nondistended EXT: Normal range of motion, no obvious deformity SKIN: No rashes or lesions observed on exposed skin. NEURO: Alert and oriented x 4. Cranial nerves II-XII intact. No focal sensory or strength deficits. Limitations: altered mental status Course Vital Signs 12/04/23 12/04/23 18:16 21:51 Temperature 97.8 F 98.0 F Pulse Rate 75 69 Respiratory 20 17 Rate Blood Pressure 157/96 152/87 O2 Sat by Pulse 96 100 Oximetry Medical Decision Making - Medical Decision Making Was pt. sent in by a medical professional or institution (, PA, PATTERN TECHNICIAN, urgent care, hospital, or long term...) When possible be specific @ -No Did you speak to anyone other than the patient for history (EMS, parent, family, police, friend...)? What history was obtained from this source @ -No Did you review nursing and triage notes (agree or disagree)? Why? @ -I reviewed and agree with nursing and triage notes Were old charts reviewed (outside hosp., previous admission, EMS record, old EKG, old radiological studies, urgent care reports/EKG's, long term records)? Report findings @ -No old charts were reviewed Differential Diagnosis (chest pain, altered mental status, abdominal pain women, abdominal pain men, vaginal bleeding, weakness, fever, dyspnea, syncope, headache, dizziness, GI bleed, back pain, seizure, CVA, palpatations, mental health, musculoskeletal)? @ -Differential Mental Health Depression, anxiety, bipolar, psychosis, schizophrenia, borderline personality, situational depression, adjustment disorder, behavioral disorder, brain tumor, malingering, substance abuse, encephalopathy, medication reaction, dementia, hypothyroidism, degenerative neurologic disorder, lupus.... This is not meant to be all-inclusive list. Also includes hyponatremia or UTI. EKG interpreted by me (3pts min.). @ -As above X-rays interpreted by me (1pt min.). @ -None done CT interpreted by me (1pt min.). @ -None done U/S interpreted by me (1pt. min.). @ -None done What testing was considered but not performed or refused? (CT, X-rays, U/S, labs)? Why? @ -None What meds were considered but not given or refused? Why? @ -None Did you discuss the management of the patient with other professionals (professionals i.e. , LEANNE, PATTERN TECHNICIAN, lab, RT, psych nurse, geriatric social worker, market basket maker, teacher, staff air tactical officer, case monitor)? Give summary @ -Discussed with admitting team, Dr. Magana of [facility] who accepted the admission. Was smoking cessation discussed for >3mins.? @ -No Was critical care preformed (if so, how long)? @ -No Were there social determinants of health that impacted care today? How? (Homelessness, low income, unemployed, alcoholism, drug addiction, transportation, low edu. Level, literacy, decrease access to med. care, residential, rehab)? @ -No Was there de-escalation of care discussed even if they declined (Discuss DNR or withdrawal of care, Hospice)? DNR status @ -No What co-morbidities impacted this encounter? (DM, HTN, Smoking, COPD, CAD, Cancer, CVA, ARF, Chemo, Hep., AIDS, mental health diagnosis, sleep apnea, morbid obesity)? @ -History of psychiatric illness, hyponatremia, hypertension, frequent UTIs Was patient admitted / discharged? Hospital course, mention meds given and route, prescriptions, significant lab abnormalities, going to OR and other pertinent info. @ -Patient presents for increased paranoia, delusions for multiple weeks. Family concern for possible medical issues such as hyponatremia or UTI with his history but cannot rule out psychiatric illness at this time either. Has a history of psychiatric illness. Presents for at least a psychiatric evaluation medical evaluation. Vital signs currently within acceptable limits. Patient is not a danger to himself or others at this time as he is not suicidal or homicidal but does seem paranoid. Vital signs within acceptable limits. Will obtain basic workup. Family in agreement this plan. EKG shows no signs of acute ischemia. Labs remarkable for hyponatremia at 122 and hypochloremia of 93 as well as UTI. Urine culture sent. Patient started on Rocephin. Patient started on IV fluids. Patient will be admitted at this time. Family in agreement this plan. Psychiatry admitted on an inpatient basis. I spoke with the admitting team, Dr. Magana who accepted the admission. Undiagnosed new problem with uncertain prognosis? @ -No Drug Therapy requiring intensive monitoring for toxicity (Heparin, Nitro, In sulin, Cardizem)? @ -No Were any procedures done? @ -No Diagnosis/symptom? @ -Paranoia, UTI, hyponatremia Acute, or Chronic, or Acute on Chronic? @ -Acute Uncomplicated (without systemic symptoms) or Complicated (systemic symptoms)? @ -Complicated Side effects of treatment? @ -No Exacerbation, Progression, or Severe Exacerbation? @ -No Poses a threat to life or bodily function? How? (Chest pain, [place], [place], pneumonia, PE, COPD, DKA, ARF, appy, cholecystitis, CVA, Diverticulitis, Homicidal, S uicidal, threat to staff... and all critical care pts) @ -Yes - Lab Data Result diagrams: 12/04/23 19:35 12/04/23 19:35 Lab Results 12/04/23 12/04/23 12/04/23 Range/Units 19:35 19:35 19:35 WBC 11.2 H (3.8-10.6) k/uL RBC 4.12 L (4.30-5.90) m/uL Hgb 11.3 L (13.0-17.5) gm/dL Hct 34.7 L (39.0-53.0) % MCV 84.1 (80.0-100.0) fL MCH 27.5 (25.0-35.0) pg MCHC 32.7 (31.0-37.0) g/dL RDW 15.5 (11.5-15.5) % Plt Count 235 (150-450) k/uL MPV 8.2 Neutrophils % 83 % Lymphocytes % 8 % Monocytes % 7 % Eosinophils % 1 % Basophils % 0 % Neutrophils # 9.3 H (1.3-7.7) k/uL Lymphocytes # 0.9 L (1.0-4.8) k/uL Monocytes # 0.7 (0-1.0) k/uL Eosinophils # 0.1 (0-0.7) k/uL Basophils # 0.0 (0-0.2) k/uL Sodium 122 L (137-145) mmol/L Potassium 4.4 (3.5-5.1) mmol/L Chloride 93 L (98-107) mmol/L Carbon Dioxide 22 (22-30) mmol/L Anion Gap 7 mmol/L BUN 8 L (9-20) mg/dL Creatinine 0.65 L (0.66-1.25) mg/dL Est GFR (CKD-EPI)AfAm >90 (>60 ml/min/1.73 sqM) Est GFR (CKD-EPI)NonAf >90 (>60 ml/min/1.73 sqM) Glucose 93 (74-99) mg/dL Calcium 8.9 (8.4-10.2) mg/dL Total Bilirubin 0.8 (0.2-1.3) mg/dL AST 24 (17-59) U/L ALT 8 (4-49) U/L Alkaline Phosphatase 81 (38-126) U/L Total Protein 6.0 L (6.3-8.2) g/dL Albumin 3.9 (3.5-5.0) g/dL Urine Color Urine Appearance (Clear) Urine pH (5.0-8.0) Ur Specific [place] (1.001-1.035) Urine Protein (Negative) Urine Glucose (UA) (Negative) Urine Ketones (Negative) Urine Blood (Negative) Urine Nitrite (Negative) Urine Bilirubin (Negative) Urine Urobilinogen (<2.0) mg/dL Ur Leukocyte Esterase (Negative) Urine RBC (0-5) /hpf Urine WBC (0-5) /hpf Urine Bacteria (None) /hpf Urine Opiates Screen Not Detected (NotDetected) Ur Oxycodone Screen Not Detected (NotDetected) Urine Methadone Screen Not Detected (NotDetected) Ur Barbiturates Screen Not Detected (NotDetected) U Tricyclic Antidepress Detected H (NotDetected) Ur Phencyclidine Scrn Not Detected (NotDetected) Ur Amphetamines Screen Not Detected (NotDetected) U Methamphetamines Scrn Not Detected (NotDetected) U Benzodiazepines Scrn Not Detected (NotDetected) Urine Cocaine Screen Not Detected (NotDetected) U Marijuana (THC) Screen Not Detected (NotDetected) Serum Alcohol <10 mg/dL 12/04/23 Range/Units 19:35 WBC (3.8-10.6) k/uL RBC (4.30-5.90) m/uL Hgb (13.0-17.5) gm/dL Hct (39.0-53.0) % MCV (80.0-100.0) fL MCH (25.0-35.0) pg MCHC (31.0-37.0) g/dL RDW (11.5-15.5) % Plt Count (150-450) k/uL MPV Neutrophils % % Lymphocytes % % Monocytes % % Eosinophils % % Basophils % % Neutrophils # (1.3-7.7) k/uL Lymphocytes # (1.0-4.8) k/uL Monocytes # (0-1.0) k/uL Eosinophils # (0-0.7) k/uL Basophils # (0-0.2) k/uL Sodium (137-145) mmol/L Potassium (3.5-5.1) mmol/L Chloride (98-107) mmol/L Carbon Dioxide (22-30) mmol/L Anion Gap mmol/L BUN (9-20) mg/dL Creatinine (0.66-1.25) mg/dL Est GFR (CKD-EPI)AfAm (>60 ml/min/1.73 sqM) Est GFR (CKD-EPI)NonAf (>60 ml/min/1.73 sqM) Glucose (74-99) mg/dL Calcium (8.4-10.2) mg/dL Total Bilirubin (0.2-1.3) mg/dL AST (17-59) U/L ALT (4-49) U/L Alkaline Phosphatase (38-126) U/L Total Protein (6.3-8.2) g/dL Albumin (3.5-5.0) g/dL Urine Color Colorless Urine Appearance Clear (Clear) Urine pH 6.5 (5.0-8.0) Ur Specific [place] 1.004 (1.001-1.035) Urine Protein Negative (Negative) Urine Glucose (UA) Negative (Negative) Urine Ketones Negative (Negative) Urine Blood Trace H (Negative) Urine Nitrite Negative (Negative) Urine Bilirubin Negative (Negative) Urine Urobilinogen <2.0 (<2.0) mg/dL Ur Leukocyte Esterase Large H (Negative) Urine RBC 5 (0-5) /hpf Urine WBC >182 H (0-5) /hpf Urine Bacteria Moderate H (None) /hpf Urine Opiates Screen (NotDetected) Ur Oxycodone Screen (NotDetected) Urine Methadone Screen (NotDetected) Ur Barbiturates Screen (NotDetected) U Tricyclic Antidepress (NotDetected) Ur Phencyclidine Scrn (NotDetected) Ur Amphetamines Screen (NotDetected) U Methamphetamines Scrn (NotDetected) U Benzodiazepines Scrn (NotDetected) Urine Cocaine Screen (NotDetected) U Marijuana (THC) Screen (NotDetected) Serum Alcohol mg/dL - EKG Data -: EKG Interpreted by Me EKG Comments: 12-lead Electrocardiogram Interpretation Note EKG was reviewed and interpreted by myself. 12-lead ECG performed at 1918 is i nterpreted by me as revealing normal sinus rhythm at a rate of 71 beats per minute. [place] is normal. NH interval is 164 ms, QRS duration is 94 ms, QTc is 413 ms.. There were no ST or T wave abnormalities to suggest myocardial ischemia or injury. R wave progression across the precordium was satisfactory. By my interpretation this EKG is non-diagnostic for acute ischemia. Disposition Clinical Impression: Hyponatremia, UTI (urinary tract infection), Paranoia Disposition: ADMITTED IP TO THIS HOSP Condition: Stable Time of Disposition: 20:40
[2023-12-04] MEDS: SODIUM CHLORIDE 0.9% 1,000 ML IV STA ×2 (21:24→21:25)
--- NOTE | 2023-12-05 05:27 | P.HPIM ---
History of Present Illness H&P Date: 12/04/23 Patient is a 67-year-old male with a PMH of recurrent UTIs, Parkinson's disease with cognitive impairment, hyponatremia, schizophrenia, CAD status post stenting, status post ventricular pacemaker placement, hypertension, hyperlipidemia, and BPH who presents to the emergency room for confusion and pa ranoid behavior. The history was supplemented by the ED provider and from the chart as the patient was somewhat confused at the time of interview. Patient reports that he has been feeling fatigued over the past few days and has been experiencing some dysuria and urinary incontinence which prompted him to come to the emergency room. The patient who lives at a nursing facility, has reportedly been dialing 911 each night and has been disruptive for the facility staff. He had also been experiencing auditory and visual hallucinations which is in line with his prior UTI episodes. Patient does report feeling better at the time of interview and had no additional complaints. Denied experiencing chest discomfort, shortness of breath, fever, chills, cough, abdominal pain, diarrhea. EKG in the emergency room revealed sinus rhythm at [address]/T wave changes noted as reviewed by me. Laboratory evaluation was remarkable for leukocytosis of 11.2, sodium 122, chloride 93, UA consistent with UTI ED documentation reviewed and case discussed with ED provider. [] Review of systems: Pertinent positives and negatives as discussed in HPI, a complete review of systems was performed and all other systems are negative. Physical examination: Vital signs reviewed General: non toxic, no distress, appears at stated age, normal weight Derm: no unusual rashes/lesions, warm Head: atraumatic, normocephalic, symmetric Eyes: EOMI, no lid lag, anicteric sclera, pupils equal round reactive to light ENT: Nose and ears atraumatic Neck: No cervical lymphadenopathy, trachea midline, supple Mouth: no lip lesion, mucus membranes moist Cardiovascular: S1S2 reg, no murmur, positive dorsalis pedis pulse bilateral, no edema Lungs: CTA bilateral, no rhonchi, no rales, no accessory muscle use Abdominal: soft, nontender to palpation, no guarding Ext: muscle strength 4 out of 5 in all 4 extremities grossly, no gross muscle atrophy, no contractures, Neuro: CN II-XI grossly intact, no gross focal neuro deficits Psych: Alert, oriented to person and place, not fully oriented to time Assessment: UTI Acute metabolic encephalopathy, likely secondary to above UTI Hypochloremic hyponatremia, suspect may be due to poor oral intake Chronic conditions: Schizophrenia, CAD, hypertension, hyperlipidemia, BPH Imaging: EKG in the emergency room revealed sinus rhythm at [address]/T wave changes noted as reviewed by me Data Review: Laboratory evaluation was remarkable for leukocytosis of 11.2, sodium 122, chloride 93, UA consistent with UTI Plan: Continue ceftriaxone Follow-up urine cultures Psychiatry consulted Continue IV fluids with normal saline 100 cc/h Monitor BMP Resume home medications once reconciled DVT prophylaxis: Lovenox Subq The patient is admitted with an anticipated greater than 2 midnight stay for evaluation of UTI CODE STATUS: Full Code Discussed with: Patient Anticipated discharge place: [facility] Past Medical History Past Medical History: Hyperlipidemia, Hypertension, Myocardial Infarction ([place]) Additional Past Medical History / Comment(s): renal CA with surgery, parkinson's Last Myocardial Infarction Date:: unknown History of Any Multi-Drug Resistant Organisms: None Reported Past Surgical History: Heart Catheterization With Stent, Orthopedic Surgery Additional Past Surgical History / Comment(s): cryoablation for renal CA, Heart Catheterization 04/23/2021, Past Anesthesia/Blood Transfusion Reactions: No Reported Reaction Date of Last Stent Placement:: 04/23/21 Type of Cardiac Device: Biventricular Pacemaker, Unknown Device Placement Date:: unknown Past Psychological History: Depression, Panic Disorder, Schizophrenia Smoking Status: Never smoker Past Alcohol Use History: None Reported Past Drug Use History: None Reported - Past Family History Family Family Medical History: Hyperlipidemia Medications and Allergies Home Medications Medication Instructions Recorded Confirmed Type Omeprazole 40 mg PO DAILY@1500 12/09/20 12/04/23 History Aspirin 81 mg PO DAILY@0700 07/28/21 12/04/23 History cloZAPine [Clozaril] 300 mg PO HS@1900 02/03/22 12/04/23 History Atorvastatin [Lipitor] 80 mg PO HS@1900 07/04/22 12/04/23 History Clopidogrel [Plavix] 75 mg PO DAILY@0700 07/04/22 12/04/23 History cloZAPine [Clozaril] 200 mg PO BID@0700,1500 07/04/22 12/04/23 History clonazePAM [KlonoPIN] 0.5 mg PO BID@0700,1900 11/11/22 12/04/23 History Carbidopa-Levodopa 25-100 mg 1 tab PO QID@07,11,15,19 05/31/23 12/04/23 History [Sinemet 25-100 mg] DULoxetine HCL [Cymbalta] 60 mg PO DAILY@0700 05/31/23 12/04/23 History Tamsulosin [Flomax] 0.4 mg PO HS@1900 05/31/23 12/04/23 History Sennosides/Docusate Sodium [Senna 1 tab PO TID PRN 06/14/23 12/04/23 History Plus 8.6-50 mg Tablet] Lidocaine 5% Patch [Lidoderm 5% 1 patch TRANSDERM DAILY PRN 09/27/23 12/04/23 H istory Patch] Acetaminophen Tab [Tylenol] 1,000 mg PO BID PRN 11/18/23 12/04/23 History Metoprolol Succinate (ER) [Toprol 50 mg PO DAILY@0800 11/18/23 12/04/23 History XL] Midodrine HCl [ProAmantine] 2.5 mg PO BID@0800,1500 11/18/23 12/04/23 History Allergies Allergy/AdvReac Type Severity Reaction Status Date / Time No Known Allergies Allergy Verified 12/04/23 18:30 Physical Exam Vitals: Vital Signs Temp Pulse Pulse Resp BP BP Pulse Ox 12/04/23 22:36 72 17 173/98 99 12/04/23 21:51 98.0 F 69 17 152/87 100 12/04/23 18:16 97.8 F 75 20 157/96 96 Intake and Output 12/04/23 12/04/23 12/05/23 14:59 22:59 06:59 Other: # Voids 2 Weight 99.79 kg Results CBC & Chem 7: 12/04/23 19:35 12/04/23 19:35 Labs: Abnormal Lab Results - Last 24 Hours (Table) 12/04/23 12/04/23 12/04/23 Range/Units 19:35 19:35 19:35 WBC 11.2 H (3.8-10.6) k/uL RBC 4.12 L (4.30-5.90) m/uL Hgb 11.3 L (13.0-17.5) gm/dL Hct 34.7 L (39.0-53.0) % Neutrophils # 9.3 H (1.3-7.7) k/uL Lymphocytes # 0.9 L (1.0-4.8) k/uL Sodium 122 L (137-145) mmol/L Chloride 93 L (98-107) mmol/L BUN 8 L (9-20) mg/dL Creatinine 0.65 L (0.66-1.25) mg/dL Total Protein 6.0 L (6.3-8.2) g/dL Urine Blood (Negative) Ur Leukocyte Esterase (Negative) Urine WBC (0-5) /hpf Urine Bacteria (None) /hpf U Tricyclic Antidepress Detected H (NotDetected) 12/04/23 Range/Units 19:35 WBC (3.8-10.6) k/uL RBC (4.30-5.90) m/uL Hgb (13.0-17.5) gm/dL Hct (39.0-53.0) % Neutrophils # (1.3-7.7) k/uL Lymphocytes # (1.0-4.8) k/uL Sodium (137-145) mmol/L Chloride (98-107) mmol/L BUN (9-20) mg/dL Creatinine (0.66-1.25) mg/dL Total Protein (6.3-8.2) g/dL Urine Blood Trace H (Negative) Ur Leukocyte Esterase Large H (Negative) Urine WBC >182 H (0-5) /hpf Urine Bacteria Moderate H (None) /hpf U Tricyclic Antidepress (NotDetected) Thrombosis Risk Factor Assmnt - Choose All That Apply Any of the Below Risk Factors Present?: No Other Risk Factors: Yes Each Risk Factor Represents 2 Points: Age 61-74 years Other congenital or acquired thrombophilia - If yes, enter type in comment: No Thrombosis Risk Factor Assessment Total Risk Factor Score: 2 Thrombosis Risk Factor Assessment Level: Low Risk
[2023-12-05 09:15] LABS: Basophils # (A) 0.02 X 10*3/uL (0.00-0.10); Basophils % (A) 0.3 %; Eosinophils # (A) 0.14 X 10*3/uL (0.04-0.35); HCT 34.3 % (39.6-50.0); HGB 11.2 g/dL (13.0-17.0); Lymphocytes # (A) 1.33 X 10*3/uL (0.90-5.00); MCH 27.3 pg (27.0-32.0); MCHC 32.7 g/dL (32.0-37.0); MCV 83.5 FL (80.0-97.0); Mean Platelet Volume 10.7 FL (9.5-12.2); Monocytes # (A) 0.53 X 10*3/uL (0.20-1.00); Monocytes % (A) 7.6 %; NRBC Per 100 WBC 0 X 10*3/uL (0.00-0.01); Neutrophils # (A) 4.96 X 10*3/uL (1.80-7.70); Neutrophils % (A) 70.8 %; Platelet Count 273 X 10*3/uL (140-440); RBC 4.11 X 10*6/uL (4.40-5.60); RDW 16.3 % (11.5-14.5)
[2023-12-05] MEDS: ENOXAPARIN 40 MG/0.4 ML SYRINGE SQ SCH (09:24)
[2023-12-05 09:49] LABS: ALT 13 U/L (10-49); AST 16 U/L (14-35); Albumin 4.1 g/dL (3.8-4.9); Albumin/Globulin Ratio 3.15 Ratio (1.60-3.17); Alkaline Phosphatase 67 U/L (41-126); BUN/Creat Ratio 9.71 Ratio (12.00-20.00); Blood Urea Nitrogen 6.8 mg/dL (9.0-27.0); Calcium 8.4 mg/dL (8.7-10.3); Carbon Dioxide 22.6 mmol/L (21.6-31.8); Chloride 97 mmol/L (96-109); Globulin 1.3 g/dL (1.6-3.3); Glucose 87 mg/dL (70-110); Potassium 4.3 mmol/L (3.5-5.5); Sodium 136 mmol/L (135-145); Total Bilirubin 0.4 mg/dL (0.3-1.2); Total Protein 5.4 g/dL (6.2-8.2)
[2023-12-05] MEDS: ACETAMINOPHEN TAB 325 MG TAB PO PRN (10:06)
--- NOTE | 2023-12-05 11:12 | P.PN ---
Subjective Progress Note Date: 12/05/23 67-year-old male with a PMH of recurrent UTIs, Parkinson's disease with cognitive impairment, hyponatremia, schizophrenia, CAD status post stenting, status post ventricular pacemaker placement, hypertension, hyperlipidemia, and BPH who presents to the emergency room for confusion and paranoid behavior. The history was supplemented by the ED provider and from the chart as the patient was somewhat confused at the time of interview. Patient reports that he has been feeling fatigued over the past few days and has been experiencing some dysuria and urinary incontinence which prompted him to come to the emergency room. The patient who lives at a nursing facility, has reportedly been dialing 911 each night and has been disruptive for the facility staff. He had also been experiencing auditory and visual hallucinations which is in line with his prior UTI episodes. Patient does report feeling better at the time of interview and had no additional complaints. Denied experiencing chest discomfort, shortness of breath, fever, chills, cough, abdominal pain, diarrhea. EKG in the emergency room revealed sinus rhythm at [address]/T wave changes noted. Laboratory evaluation was remarkable for leukocytosis of 11.2, sodium 122, chloride 93, UA consistent with UTI. 12/04 Patient was seen and examined. Appears well. Denies hallucinations. No dysuria or abdominal pain. Maintained on Rocephin 2g IV QD. CBC Hg 11.2, Hct 34.3. CMP AG 16.4, BUN 6.8, Ca 8.4, total protein 5.4, globulin 1.3. General: non toxic, no distress, appears at stated age Derm: warm, dry Head: atraumatic, normocephalic, symmetric Eyes: EOMI, no lid lag, anicteric sclera Mouth: no lip lesion, mucus membranes moist Cardiovascular: S1S2 reg, no murmur Lungs: Decreased BS bilateral, no rhonchi, no rales , no accessory muscle use Ext: no gross muscle atrophy, no edema, no contractures Neuro: no focal neuro deficits Psych: Alert, oriented, appropriate affect Based on my assessment of this patient, this patient meets a high complexity level of care. UTI: Rocephin 2g IV QD. Follow UCx. Acute metabolic encephalopathy, likely secondary to above UTI Resolved: Hypochloremic hyponatremia Chronic conditions: Schizophrenia, CAD, hypertension, hyperlipidemia, BPH CODE STATUS: FULL CODE DVT Prophylaxis: Lovenox GI Prophylaxis: Protonix Designated medical POA if patient is not able to make medical decisions for emselves: I have reviewed the following pharmacy consultant notes: I have reviewed the results of the following tests: CBC, CMP. I have ordered the following tests: I have discussed the care of this patient with the following independent historian: I have independently interpreted the following test below: I have discussed the management of this patient with the following physician: Objective - Vital Signs Vital signs: Vital Signs Temp 98.1 F 12/05/23 07:14 Pulse 73 12/05/23 07:14 Resp 16 12/05/23 07:14 BP 158/93 12/05/23 07:14 Pulse Ox 96 12/05/23 07:14 FiO2 Intake & Output 12/04/23 12/05/23 12/05/23 18:59 06:59 18:59 Output Total 650 Balance -650 Weight 99.79 kg 99.79 kg Output: Urine 650 Other: Voiding Method Toilet Urinal # Voids 2 - Labs CBC & Chem 7: 12/05/23 05:30 12/05/23 05:30 Labs: Abnormal Lab Results - Last 24 Hours (Table) 12/04/23 12/04/23 12/04/23 Range/Units 19:35 19:35 19:35 WBC 11.2 H (3.8-10.6) k/uL RBC 4.12 L (4.30-5.90) m/uL Hgb 11.3 L (13.0-17.5) gm/dL Hct 34.7 L (39.0-53.0) % Neutrophils # 9.3 H (1.3-7.7) k/uL Lymphocytes # 0.9 L (1.0-4.8) k/uL Sodium 122 L (137-145) mmol/L Chloride 93 L (98-107) mmol/L BUN 8 L (9-20) mg/dL Creatinine 0.65 L (0.66-1.25) mg/dL Total Protein 6.0 L (6.3-8.2) g/dL Urine Blood (Negative) Ur Leukocyte Esterase (Negative) Urine WBC (0-5) /hpf Urine Bacteria (None) /hpf U Tricyclic Antidepress Detected H (NotDetected) 12/04/23 Range/Units 19:35 WBC (3.8-10.6) k/uL RBC (4.30-5.90) m/uL Hgb (13.0-17.5) gm/dL Hct (39.0-53.0) % Neutrophils # (1.3-7.7) k/uL Lymphocytes # (1.0-4.8) k/uL Sodium (137-145) mmol/L Chloride (98-107) mmol/L BUN (9-20) mg/dL Creatinine (0.66-1.25) mg/dL Total Protein (6.3-8.2) g/dL Urine Blood Trace H (Negative) Ur Leukocyte Esterase Large H (Negative) Urine WBC >182 H (0-5) /hpf Urine Bacteria Moderate H (None) /hpf U Tricyclic Antidepress (NotDetected)
[2023-12-05] MEDS: CARBIDOPA-LEVODOPA 25-100 MG 1 EACH TAB PO SCH (12:22)
--- NOTE | 2023-12-05 14:38 | P.CN ---
Psychiatric Consult - . Consult date: 12/05/23 Consult:: 12/05/23 14:31 This is a psychiatric assessment on González Russell who is a 67-year-old male withPMH of recurrent UTIs, Parkinson's disease with cognitive impairment, hyponatremia, schizophrenia, CAD status post stenting, status post ventricular pacemaker placement, hypertension, hyperlipidemia, and BPH who presents to the emergency room for confusion and paranoid behavior. Patient is a poor historian he states that he gets scared and starts calling 911 because he gets confused He states that he does not like where he lives and that he would like to move to a smaller group of residents than the 50 people that live with him at this time He states that he has no family but then rambled about family in [place] and having 5 children but that he does not have any children in general patient is unable to give any reliable history about his past According to the chart the patient started experiencing auditory and visual hallucinations with his prior UTI episodes Patient however has a diagnosis of Parkinson's disease and schizophrenia ? 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 He is unable to give any other specifics Mental status examination reveals a elderly male who presents with a flat affect Patient's speech was somewhat pressured at times the patient was rambling from the get go He reports about not liking where he is staying and that he tends to get confused He denies any suicidal IDEATIONS and in fact gets care for his safety Thinking is very concrete and simple and self-centered Patient is alert and oriented to place and person Formal operational judgment are impaired Problem solving skills are impaired Insight into his problem is poor Diagnostic impression: Major neurocognitive disorder/toxic metabolic encephalopathy History of schizophrenia? Rule out major cognitive disorder related to Parkinson's disease Summary and treatment plan This is a elderly male who presents with a complicated history of Parkinson's disease where one third of the patient to experience auditory and visual hallucinations during his active treatment Patient however also carries an additional diagnosis of schizophrenia and which remains unclear Patient is currently on Clazuril which is also one of the recommended medications used in the packing Parkinson's disease if patient has problems with other antipsychotics including Seroquel Since patient is currently being treated for possibility of metabolic encephalopathy which has happened on several occasions where patient has then resolved to the previous level of functioning did not recommend any further psychiatric intervention at this time Will continue to follow the patient along with you Would recommend continuation of current psychotropic medications as prescribed Thank you very much for your kind referral and please feel free to contact me if you have any further questions Jf Orozco MD Active Medications Generic Name Dose Route Start Last Admin Trade Name Freq PRN Reason Stop Dose Admin Acetaminophen 650 mg 12/04/23 20:43 12/05/23 10:06 Acetaminophen Tab 325 Mg Tab PO 650 mg Q6HR PRN Administration Mild Pain or Fever > 100.5 Aspirin 81 mg 12/06/23 07:00 Aspirin 81 Mg PO DAILY@0700 [facility] Atorvastatin Calcium 80 mg 12/05/23 19:00 Atorvastatin 80 Mg Tab PO HS@1900 [facility] Carbidopa/Levodopa 1 each 12/05/23 11:00 12/05/23 12:22 Carbidopa-Levodopa 25-100 Mg 1 Each Tab PO 1 each QID@,,,19 [facility] Administration Clonazepam 0.5 mg 12/05/23 19:00 Clonazepam 0.5 Mg Tab PO BID@0700,1900 [facility] Clopidogrel Bisulfate 75 mg 12/06/23 07:00 Clopidogrel 75 Mg Tab PO DAILY@0700 [facility] Clozapine 200 mg 12/05/23 15:00 Clozapine 100 Mg Tab PO 12/09/23 23:00 BID@0700,1500 [facility] Clozapine 300 mg 12/05/23 19:00 Clozapine 100 Mg Tab PO 12/09/23 23:00 HS@1900 [facility] Duloxetine HCl 60 mg 12/06/23 07:00 Duloxetine Hcl 60 Mg Capsule.Dr PO DAILY@0700 [facility] Enoxaparin Sodium 40 mg 12/05/23 09:00 12/05/23 09:24 Enoxaparin 40 Mg/0.4 Ml Syringe SQ 40 mg DAILY JEAN Administration Ceftriaxone Sodium 2 gm/ 50 mls @ 100 mls/hr 12/05/23 09:00 12/05/23 09:24 Sodium Chloride IVPB 100 mls/hr Q24HR JEAN Administration Protocol Metoprolol Succinate 50 mg 12/06/23 08:00 Metoprolol Succinate (Er) 50 Mg Tab.Er.24h PO DAILY@0800 [facility] Midodrine 2.5 mg 12/05/23 15:00 Midodrine 5 Mg Tab PO BID@0800,1500 [facility] Naloxone HCl 0.2 mg 12/04/23 20:43 Naloxone 0.4 Mg/Ml 1 Ml Vial IV Q2M PRN Opioid Reversal Pantoprazole Sodium 40 mg 12/05/23 15:00 Pantoprazole 40 Mg Tablet PO DAILY@1500 JEAN Tamsulosin HCl 0.4 mg 12/05/23 19:00 Tamsulosin 0.4 Mg Cap.Er.24h PO HS@1900 JEAN
[2023-12-05] MEDS: MIDODRINE 5 MG TAB PO SCH (15:45)
[2023-12-05] MEDS: ATORVASTATIN 80 MG TAB PO SCH (15:56)
[2023-12-05] MEDS: cloZAPine 100 MG TAB PO SCH ×2 (15:56→18:35)
[2023-12-05] MEDS: PANTOPRAZOLE 40 MG TABLET PO SCH (15:56)
[2023-12-05] MEDS: clonazePAM 0.5 MG TAB PO SCH (18:33)
[2023-12-05] MEDS: TAMSULOSIN 0.4 MG CAP.ER.24H PO SCH (18:33)
[2023-12-06] MEDS: ASPIRIN 81 MG PO SCH (06:03)
[2023-12-06] MEDS: CLOPIDOGREL 75 MG TAB PO SCH (06:03)
[2023-12-06] MEDS: DULoxetine HCL 60 MG CAPSULE.DR PO SCH (06:03)
[2023-12-06] MEDS: METOPROLOL SUCCINATE (ER) 50 MG TAB.ER.24H PO SCH (07:37)
--- NOTE | 2023-12-06 11:39 | P.PN ---
Subjective Progress Note Date: 12/06/23 67-year-old male with a PMH of recurrent UTIs, Parkinson's disease with cognitive impairment, hyponatremia, schizophrenia, CAD status post stenting, status post ventricular pacemaker placement, hypertension, hyperlipidemia, and BPH who presents to the emergency room for confusion and paranoid behavior. The history was supplemented by the ED provider and from the chart as the patient was somewhat confused at the time of interview. Patient reports that he has been feeling fatigued over the past few days and has been experiencing some dysuria and urinary incontinence which prompted him to come to the emergency room. The patient who lives at a nursing facility, has reportedly been dialing 911 each night and has been disruptive for the facility staff. He had also been experiencing auditory and visual hallucinations which is in line with his prior UTI episodes. Patient does report feeling better at the time of interview and had no additional complaints. Denied experiencing chest discomfort, shortness of breath, fever, chills, cough, abdominal pain, diarrhea. EKG in the emergency room revealed sinus rhythm at [address]/T wave changes noted. Laboratory evaluation was remarkable for leukocytosis of 11.2, sodium 122, chloride 93, UA consistent with UTI. 12/04 Patient was seen and examined. Appears well. Denies hallucinations. No dysuria or abdominal pain. Maintained on Rocephin 2g IV QD. CBC Hg 11.2, Hct 34.3. CMP AG 16.4, BUN 6.8, Ca 8.4, total protein 5.4, globulin 1.3. 12/05 Patient was seen and examined. Reports acute on chronic back pain, 9/10 severity. Mentation improved. Maintained on Rocephin 2g IV QD. UCx is pending. General: non toxic, no distress, appears at stated age Derm: warm, dry Head: atraumatic, normocephalic, symmetric Eyes: EOMI, no lid lag, anicteric sclera Mouth: no lip lesion, mucus membranes moist Cardiovascular: S1S2 reg, no murmur Lungs: Decreased BS bilateral, no rhonchi, no rales , no accessory muscle use Ext: no gross muscle atrophy, no edema, no contractures Neuro: no focal neuro deficits Psych: Alert, oriented, appropriate affect Based on my assessment of this patient, this patient meets a high complexity level of care. UTI: Rocephin 2g IV QD. Follow UCx. Acute metabolic encephalopathy, likely secondary to above UTI Acute on chronic back pain: Morphine 2 mg IV Q4H PRN. Resolved: Hypochloremic hyponatremia Chronic conditions: Schizophrenia, CAD, hypertension, hyperlipidemia, BPH CODE STATUS: FULL CODE DVT Prophylaxis: Lovenox GI Prophylaxis: Protonix Designated medical POA if patient is not able to make medical decisions for themselves: I have reviewed the following oracle security consultant notes: I have reviewed the results of the following tests: I have ordered the following tests: I have discussed the care of this patient with the following independent historian: MONIKA. I have independently interpreted the following test below: I have discussed the management of this patient with the following physician: Objective - Vital Signs Vital signs: Vital Signs Temp 98.1 F 12/06/23 07:22 Pulse 80 12/06/23 07:46 Resp 18 12/06/23 07:46 BP 104/62 12/06/23 07:22 Pulse Ox 96 12/06/23 07:22 FiO2 Intake & Output 12/05/23 12/06/23 12/06/23 18:59 06:59 18:59 Intake Total 960 Output Total 1150 350 150 Balance -190 -350 -150 Intake: Oral 960 Output: Urine 1150 350 150 Other: Voiding Method Toilet Toilet Toilet Urinal Urinal Urinal # Voids 1 1 # Bowel Movements 1 - Labs CBC & Chem 7: 12/05/23 05:30 12/05/23 05:30
[2023-12-06] MEDS: MORPHINE SULFATE 2 MG/ML SYRINGE IVP STA (11:49)
[2023-12-07] MEDS: MORPHINE SULFATE 2 MG/ML SYRINGE IVP PRN (10:08)
--- NOTE | 2023-12-07 12:51 | P.PN ---
Subjective Progress Note Date: 12/07/23 67-year-old male with a PMH of recurrent UTIs, Parkinson's disease with cognitive impairment, hyponatremia, schizophrenia, CAD status post stenting, status post ventricular pacemaker placement, hypertension, hyperlipidemia, and BPH who presents to the emergency room for confusion and paranoid behavior. The history was supplemented by the ED provider and from the chart as the patient was somewhat confused at the time of interview. Patient reports that he has been feeling fatigued over the past few days and has been experiencing some dysuria and urinary incontinence which prompted him to come to the emergency room. The patient who lives at a nursing facility, has reportedly been dialing 911 each night and has been disruptive for the facility staff. He had also been experiencing auditory and visual hallucinations which is in line with his prior UTI episodes. Patient does report feeling better at the time of interview and had no additional complaints. Denied experiencing chest discomfort, shortness of breath, fever, chills, cough, abdominal pain, diarrhea. EKG in the emergency room revealed sinus rhythm at [address]/T wave changes noted. Laboratory evaluation was remarkable for leukocytosis of 11.2, sodium 122, chloride 93, UA consistent with UTI. 12/04 Patient was seen and examined. Appears well. Denies hallucinations. No dysuria or abdominal pain. Maintained on Rocephin 2g IV QD. CBC Hg 11.2, Hct 34.3. CMP AG 16.4, BUN 6.8, Ca 8.4, total protein 5.4, globulin 1.3. 12/05 Patient was seen and examined. Reports acute on chronic back pain, 9/10 severity. Mentation improved. Maintained on Rocephin 2g IV QD. UCx is pending. 12/06 Patient was seen and examined. Back pain well controlled on Morphine PRN. Maintained on Rocephin 2g IV QD. UCx growing 10-49k GNB. General: non toxic, no distress, appears at stated age Derm: warm, dry Head: atraumatic, normocephalic, symmetric Eyes: EOMI, no lid lag, anicteric sclera Mouth: no lip lesion, mucus membranes moist Cardiovascular: S1S2 reg, no murmur Lungs: Decreased BS bilateral, no rhonchi, no rales , no accessory muscle use Ext: no gross muscle atrophy, no edema, no contractures Neuro: no focal neuro deficits Psych: Alert, oriented, appropriate affect Based on my assessment of this patient, this patient meets a high complexity level of care. UTI: Rocephin 2g IV QD. Follow UCx. Acute metabolic encephalopathy, likely secondary to above UTI Acute on chronic back pain: Morphine 2 mg IV Q4H PRN. Resolved: Hypochloremic hyponatremia Chronic conditions: Schizophrenia, CAD, hypertension, hyperlipidemia, BPH Plans for discharge home when results of UCx come back. CODE STATUS: FULL CODE DVT Prophylaxis: Lovenox GI Prophylaxis: Protonix Designated medical POA if patient is not able to make medical decisions for themselves: I have reviewed the following physician practice consultant notes: I have reviewed the results of the following tests: I have ordered the following tests: I have discussed the care of this patient with the following independent historian: I have independently interpreted the following test below: I have discussed the management of this patient with the following physician: Objective - Vital Signs Vital signs: Vital Signs Temp 97.9 F 12/07/23 06:52 Pulse 64 12/07/23 06:52 Resp 16 12/07/23 06:52 BP 136/81 12/07/23 06:52 Pulse Ox 95 12/07/23 06:52 FiO2 Intake & Output 12/06/23 12/07/23 12/07/23 18:59 06:59 18:59 Intake Total 0 Output Total 1350 700 300 Balance -1350 -700 -300 Intake: Oral 0 Output: Urine 1350 700 300 Other: Voiding Method Toilet Toilet Toilet Urinal Urinal Urinal - Labs CBC & Chem 7: 12/05/23 05:30 12/05/23 05:30 Labs: Microbiology - Last 24 Hours (Table) 12/04/23 20:38 Urine Culture - Preliminary Urine,Clean Catch Gram Neg Bacilli
--- NOTE | 2023-12-08 13:29 | P.PN ---
Subjective Progress Note Date: 12/08/23 67-year-old male with a PMH of recurrent UTIs, Parkinson's disease with cognitive impairment, hyponatremia, schizophrenia, CAD status post stenting, status post ventricular pacemaker placement, hypertension, hyperlipidemia, and BPH who presents to the emergency room for confusion and paranoid behavior. The history was supplemented by the ED provider and from the chart as the patient was somewhat confused at the time of interview. Patient reports that he has been feeling fatigued over the past few days and has been experiencing some dysuria and urinary incontinence which prompted him to come to the emergency room. The patient who lives at a nursing facility, has reportedly been dialing 911 each night and has been disruptive for the facility staff. He had also been experiencing auditory and visual hallucinations which is in line with his prior UTI episodes. Patient does report feeling better at the time of interview and had no additional complaints. EKG in the emergency room revealed sinus rhythm at [address]/T wave changes noted. Laboratory evaluation was remarkable for leukocytosis of 11.2, sodium 122, chloride 93, UA consistent with UTI. Maintained on Rocephin 2g IV QD. UCx growing acintobacter eren/haemol pulliam sensitive. Guardian would like ECF with possible permanent placement per Case management. 12/07 Patient was seen and examined. No complaints. Maintained on Rocephin 2g IV QD (D5). UCx growing acintobacter eren/haemol pulliam sensitive. Discussed with case management, spoke to guardian, currently lives independently at [facility], would like to see patient go to ECF with possible permanent placement. General: non toxic, no distress, appears at stated age Derm: warm, dry Head: atraumatic, normocephalic, symmetric Eyes: EOMI, no lid lag, anicteric sclera Mouth: no lip lesion, mucus membranes moist Cardiovascular: S1S2 reg, no murmur Lungs: Decreased BS bilateral, no rhonchi, no rales , no accessory muscle use Ext: no gross muscle atrophy, no edema, no contractures Neuro: no focal neuro deficits Psych: Alert, oriented, appropriate affect Based on my assessment of this patient, this patient meets a high complexity level of care. UTI: Rocephin 2g IV QD. UCx growing acintobacter eren/haemol pulliam sensitive. Switch to PO antibiotics when disposition figured out with case management. Acute metabolic encephalopathy, likely secondary to above UTI Acute on chronic back pain: Morphine 2 mg IV Q4H PRN. Resolved: Hypochloremic hyponatremia Chronic conditions: Schizophrenia, CAD, hypertension, hyperlipidemia, BPH CODE STATUS: FULL CODE DVT Prophylaxis: Lovenox GI Prophylaxis: Protonix Designated medical POA if patient is not able to make medical decisions for themselves: I have reviewed the following warehouse consultant notes: I have reviewed the results of the following tests: UCx. I have ordered the following tests: I have discussed the care of this patient with the following independent historian: Case management I have independently interpreted the following test below: I have discussed the management of this patient with the following physician: Objective - Vital Signs Vital signs: Vital Signs Temp 97.5 F L 12/08/23 12:36 Pulse 63 12/08/23 12:36 Resp 17 12/08/23 12:36 BP 120/79 12/08/23 12:36 Pulse Ox 98 12/08/23 12:36 FiO2 Intake & Output 12/07/23 12/08/23 12/08/23 18:59 06:59 18:59 Intake Total 240 Output Total 1025 250 Balance -1025 240 -250 Intake: Oral 240 Output: Urine 1025 250 Other: Voiding Method Toilet Toilet Toilet Urinal Urinal Urinal Diaper Diaper Incontinent Incontinent # Voids 3 - Labs CBC & Chem 7: 12/05/23 05:30 12/05/23 05:30 Labs: Microbiology - Last 24 Hours (Table) 12/04/23 20:38 Urine Culture - Final Urine,Clean Catch Acinetobacter eren/haemol
[2023-12-09 07:43] LABS: Anisocytosis Slight; Basophils % (A) 0 %; Eosinophils # (A) 0.3 k/uL (0-0.7); Eosinophils % (A) 3 %; HCT 39.2 % (39.0-53.0); HGB 12.6 gm/dL (13.0-17.5); Lymphocytes # (A) 1.7 k/uL (1.0-4.8); Lymphocytes % (A) 21 %; MCH 27.9 pg (25.0-35.0); MCHC 32.1 g/dL (31.0-37.0); Mean Platelet Volume 7.8; Monocytes # (A) 0.6 k/uL (0-1.0); Monocytes % (A) 7 %; Neutrophils # (A) 5.6 k/uL (1.3-7.7); Neutrophils % (A) 67 %; Platelet Count 305 k/uL (150-450); RDW 16.1 % (11.5-15.5); WBC 8.4 k/uL (3.8-10.6)
[2023-12-09 07:48] LABS: African American GFR (CKD) >90 (>60 ml/min/1.73 sqM); Anion Gap 4 mmol/L; Blood Urea Nitrogen 15 mg/dL (9-20); Calcium 8.7 mg/dL (8.4-10.2); Carbon Dioxide 29 mmol/L (22-30); Chloride 102 mmol/L (98-107); Glucose 98 mg/dL (74-99); Non-African American GFR(CKD) 82 (>60 ml/min/1.73 sqM); Potassium 4.4 mmol/L (3.5-5.1); Sodium 135 mmol/L (137-145)
[2023-12-09 13:37] VITALS: BP 122/78; PULSE 55; RESP 18; TEMP 97.2
--- NOTE | 2023-12-09 14:25 | P.PN ---
Progress Note - Text Progress Note Date: 12/09/23 Interval History: Patient was seen today for psychiatric follow-up at the bedside. Nurse claims that patient has been doing fairly well, offers no complaints. Patient was seen laying in bed watching television. He was fairly directable during conversation, claims that he is doing fairly well. Claims that his mood and appetite are fair at this time. He was asking when he will be discharged and does not know where he will be going. He appeared to be more future oriented today, he was kind of confused about today's current date however did know that he was in November 2023, did know the correct hospital and also his name. Denies any problems with sleep or appetite. At this time patient denies any suicidal or homical ideations, intent or plan. Patient denies any auditory, visual hallucinations and denies any paranoia or delusions. Patient denies any side effects from the medications and has been compliant with meds. Mental Status Exam: General Appearance: Patient appears to be laying in bed, stated age is alert, directable, and cooperative. Behavior: Patient is calmly seated without any agitated behavior. Attempts to cooperate Speech: Patient's speech is fluent and nonpressured. Mood/Affect: Mood is improving mildly, affect is congruent Suicidality/Homicidality: Patient denies having any suicidal or homicidal ideation intent or plan. Perceptions: Patient denies any visual hallucinations and denies any auditory hallucinations Though content/process: There is no evidence of any delusional thought content and thought process is linear and goal-directed. Rambles at times Memory and concentration: AOX3, grossly intact for the purposes of this session Judgment and insight: Improving mildly Plan: -Continue with current assessment -Patient does not meet psychiatric criteria for inpatient psychiatric admission. --Delirium precautions recommended with patient including - avoiding use of narcotics and RENT AND MISCELLANEOUS REMITTANCE CLERK sedatives, limit anticholinergic medications when possible, frequent re-orientation, minimize use of restraints, open window shades during the day and close them at night -Medications: Can continue with current medications as prescribed including clozapine and Klonopin and also Cymbalta. -animal care service worker looking for placement at this time and discharge planning. -Continue with your management for medical comorbidities, continue with antibiotics for recurrent UTIs. -At this time psychiatry will sign off
--- NOTE | 2023-12-09 14:44 | P.DS ---
Providers Date of admission: 12/04/23 20:43 Expected date of discharge: 12/09/23 Attending physician: Benton Magana MD Consults: 12/04/23 20:39 Consult Physician Routine Consulting Provider: Onofre Elizondo Consult Reason/Comments: worsening paranoia Do you want consulting provider notified?: Already Contacted Primary care physician: [facility] Hospital Course: Discharge Diagnosis: Acinetobacter urinary tract infection Acute metabolic encephalopathy Acute on chronic back pain Parkinson's disease Schizophrenia Coronary artery disease Hypertension Dyslipidemia BPH Hospital Course: Patient is a 67-year-old male with history of recurrent urinary tract infection, Parkinson disease with cognitive impairment, hyponatremia, schizophrenia, brewster ry artery disease status post stenting, pacemaker, hypertension, dyslipidemia, and multiple other comorbid conditions who presented to the ER for confusion and paranoid behavior. Extensive evaluation in the emergency department revealed urinary tract infection and significant hyponatremia. Patient was admitted and started on Rocephin and IV fluids. By the next morning his sodium had normalized as well as white blood cell count. He continued to do well. He was seen by psychiatry who felt that his paranoia was worsened by his underlying medical conditions. His urine culture demonstrated Acinetobacter. He continued to do well and he was determined stable for discharge. Follow-up: Bactrim DS for an additional 4 days, this will give patient a total of 10 days of treatment. [facility] in 2-3 days, Urology if he has not seen them yet, and add cranberry extract twice daily. Patient seen and examined at bedside. At bedside has no complaints. No longer having hallucinations. No difficulty with urination. Asking to go home. Discussed with his sister who is his decision-maker. They are looking for more supervised living. Vital signs reviewed and stable. General: Nontoxic, no distress, appears at stated age Cardiovascular: S1S2 reg, no murmur, positive posterior tibial pulse bilateral, Lungs: CTA bilateral, no rhonchi, no rales, no accessory muscle use Abdominal: Soft, nontender to palpation, no guarding, no appreciable organomegaly Ext: No gross muscle atrophy, no edema b/l lower extremities, no contractures Neuro: CN II-XI grossly intact, no focal neuro deficits Psych: Alert, oriented, appropriate affect A total of 45 minutes of time were spent preparing this complex discharge summary. Patient was discharged on 12/09/23. This dictation was prepared using dragon medical voice recognition software. Though every attempt is made to correct errors during dictation some may still exist. Patient Condition at Discharge: Stable Plan - Discharge Summary Discharge Rx Participant: Yes New Discharge Prescriptions: New Sulfamethox-Tmp 800-160Mg [Bactrim DS 800-160 mg] 1 tab PO Q12HR #8 tab Continue Omeprazole 40 mg PO DAILY@1500 cloZAPine [Clozaril] 300 mg PO HS@1900 Carbidopa-Levodopa 25-100 mg [Sinemet 25-100 mg] 1 tab PO QID@07,11,15,19 Sennosides/Docusate Sodium [Senna Plus 8.6-50 mg Tablet] 1 tab PO TID PRN PRN Reason: Constipation Acetaminophen Tab [Tylenol] 1,000 mg PO BID PRN PRN Reason: Fever And/ Or Pain Metoprolol Succinate (ER) [Toprol XL] 50 mg PO DAILY@0800 Aspirin 81 mg PO DAILY@0700 cloZAPine [Clozaril] 200 mg PO BID@0700,1500 Clopidogrel [Plavix] 75 mg PO DAILY@0700 Atorvastatin [Lipitor] 80 mg PO HS@1900 clonazePAM [KlonoPIN] 0.5 mg PO BID@0700,1900 Tamsulosin [Flomax] 0.4 mg PO HS@1900 DULoxetine HCL [Cymbalta] 60 mg PO DAILY@0700 Lidocaine 5% Patch [Lidoderm 5% Patch] 1 patch TRANSDERM DAILY PRN PRN Reason: Pain Midodrine HCl [ProAmantine] 2.5 mg PO BID@0800,1500 Discharge Medication List Omeprazole 40 mg PO DAILY@1500 12/09/20 [History] Aspirin 81 mg PO DAILY@0700 07/28/21 [History] cloZAPine [Clozaril] 300 mg PO HS@1900 02/03/22 [History] Atorvastatin [Lipitor] 80 mg PO HS@1900 07/04/22 [History] Clopidogrel [Plavix] 75 mg PO DAILY@0700 07/04/22 [History] cloZAPine [Clozaril] 200 mg PO BID@0700,1500 07/04/22 [History] clonazePAM [KlonoPIN] 0.5 mg PO BID@0700,1900 11/11/22 [History] Carbidopa-Levodopa 25-100 mg [Sinemet 25-100 mg] 1 tab PO QID@07,11,15,19 05/31/23 [History] DULoxetine HCL [Cymbalta] 60 mg PO DAILY@0700 05/31/23 [History] Tamsulosin [Flomax] 0.4 mg PO HS@1900 05/31/23 [History] Sennosides/Docusate Sodium [Senna Plus 8.6-50 mg Tablet] 1 tab PO TID PRN 06/14/23 [History] Lidocaine 5% Patch [Lidoderm 5% Patch] 1 patch TRANSDERM DAILY PRN 09/27/23 [History] Acetaminophen Tab [Tylenol] 1,000 mg PO BID PRN 11/18/23 [History] Metoprolol Succinate (ER) [Toprol XL] 50 mg PO DAILY@0800 11/18/23 [History] Midodrine HCl [ProAmantine] 2.5 mg PO BID@0800,1500 11/18/23 [History] Sulfamethox-Tmp 800-160Mg [Bactrim DS 800-160 mg] 1 tab PO Q12HR #8 tab 12/09/23 [Rx] Follow up Appointment(s)/Referral(s): [facility],Clinic [Primary Care Provider] - 1-2 days Claudio Briceño MD [STAFF PHYSICIAN] - 1 Week (if he has not follow with a urologist ) Activity/Diet/Wound Care/Special Instructions: Activity: As tolerated Diet: Regular Special Instructions: Suggest cranberry extract tablets 400 mg BID Discharge Disposition: HOME SELF-CARE
== END 2023-12-09 17:21 | disposition home or self-care (01) | DRG 689 ==
LOC: EC 17:47 → 5NMEDONC 20:43
PROVIDERS: ADMIT Internal Medicine; ATTEND Internal Medicine
DX: N39.0 Urinary tract infection, site not specified (principal); G93.41 Metabolic encephalopathy; E87.1 Hypo-osmolality and hyponatremia; F60.0 Paranoid personality disorder; E78.5 Hyperlipidemia, unspecified; F20.9 Schizophrenia, unspecified; F41.0 Panic disorder [episodic paroxysmal anxiety]; G20.A1 Parkinson's disease without dyskinesia, without mention of fluctuations; G89.29 Other chronic pain; M54.9 Dorsalgia, unspecified; I10 Essential (primary) hypertension; I25.10 Atherosclerotic heart disease of native coronary artery without angina pectoris; I25.2 Old myocardial infarction; N40.1 Benign prostatic hyperplasia with lower urinary tract symptoms; N39.498 Other specified urinary incontinence; Z79.02 Long term (current) use of antithrombotics/antiplatelets; Z79.82 Long term (current) use of aspirin; Z79.899 Other long term (current) drug therapy; Z85.528 Personal history of other malignant neoplasm of kidney; Z87.440 Personal history of urinary (tract) infections; Z95.0 Presence of cardiac pacemaker; Z95.5 Presence of coronary angioplasty implant and graft; Z28.310 Unvaccinated for COVID-19; Z28.21 Immunization not carried out because of patient refusal
CPT/HCPCS: 36415; 80048; 80053; 80306; 80320; 81001; 82075; 85025; 87077; 87086; 87186; 93005; 96365; 99285

== ENCOUNTER 2023-12-10 18:33 | Inpatient (IN) | payer OTHER, MEDICARE ==
--- NOTE | 2023-12-10 19:34 | ED ---
Altered Mental Status HPI - General Chief Complaint: Altered Mental Status Stated Complaint: AMS Time Seen by Provider: 12/10/23 19:12 Source: patient, RN notes reviewed Mode of arrival: ambulatory Limitations: no limitations - History of Present Illness Initial Comments: 67-year-old male with a past medical history significant for recurrent urinary tract infection, Parkinson disease with cognitive impairment, schizophrenia, coronary artery disease status post stenting, pacemaker, hypertension, dyslipidemia presenting to the ED with complaints of altered mental status. Of note, patient was recently here for the same. Was admitted and discharged on 12/09/2023 after findings of urinary tract infection and significant hyponatremia. Started on Rocephin and IV fluids by the next morning normalization of sodium and white blood cell count. Was seen by psychiatry who felt that paranoia was worsened secondary to underlying medical conditions. Uri ne culture demonstrated Acetobacter and was discharged home on Bactrim double strength. Yesterday when the patient was discharged, patient's sister who is his legal guardian reported that he was doing well however did note that he was mumbling upon return at [facility]. Reports that he used to mumble over 20 years ago however has mostly stopped. Today, she reports the patient was in his friend's room and was acting odd and thus went to [facility], picked him up, and brought him here for further evaluation. Reported at that time patient seemed more paranoid than usual. History from the patient is limited and he cannot describe the events that occurred earlier. Denies fever or chills. Has been continuing antibiotic as prescribed. Denies chest pain or shortness of breath. No other complaints at this time. Patient does admit to drinking large amounts of water today. States had 6-8 large glasses full. - Related Data Home Medications Medication Instructions Recorded Confirmed Omeprazole 40 mg PO DAILY@1500 12/09/20 12/04/23 Aspirin 81 mg PO DAILY@0700 07/28/21 12/04/23 cloZAPine [Clozaril] 300 mg PO HS@1900 02/03/22 12/04/23 Atorvastatin [Lipitor] 80 mg PO HS@1900 07/04/22 12/04/23 Clopidogrel [Plavix] 75 mg PO DAILY@0700 07/04/22 12/04/23 cloZAPine [Clozaril] 200 mg PO BID@0700,1500 07/04/22 12/04/23 clonazePAM [KlonoPIN] 0.5 mg PO BID@0700,1900 11/11/22 12/04/23 Carbidopa-Levodopa 25-100 mg 1 tab PO QID@07,11,,19 05/31/23 12/04/23 [Sinemet 25-100 mg] DULoxetine HCL [Cymbalta] 60 mg PO DAILY@0700 05/31/23 12/04/23 Tamsulosin [Flomax] 0.4 mg PO HS@1900 05/31/23 12/04/23 Sennosides/Docusate Sodium [Senna 1 tab PO TID PRN 06/14/23 12/04/23 Plus 8.6-50 mg Tablet] Lidocaine 5% Patch [Lidoderm 5% 1 patch TRANSDERM DAILY PRN 09/27/23 12/04/23 Patch] Acetaminophen Tab [Tylenol] 1,000 mg PO BID PRN 11/18/23 12/04/23 Metoprolol Succinate (ER) [Toprol 50 mg PO DAILY@0800 11/18/23 12/04/23 XL] Midodrine HCl [ProAmantine] 2.5 mg PO BID@0800,1500 11/18/23 12/04/23 Previous Rx's Medication Instructions Recorded Sulfamethox-Tmp 800-160Mg [Bactrim 1 tab PO Q12HR #8 tab 12/09/23 DS 800-160 mg] Allergies Allergy/AdvReac Type Severity Reaction Status Date / Time No Known Allergies Allergy Verified 12/10/23 18:47 Review of Systems ROS Statement: Those systems with pertinent positive or pertinent negative responses have been documented in the HPI. ROS Other: All systems not noted in ROS Statement are negative. Past Medical History Past Medical History: Hyperlipidemia, Hypertension, Myocardial Infarction ([place]) Additional Past Medical History / Comment(s): renal CA with surgery, parkinson's Last Myocardial Infarction Date:: unknown History of Any Multi-Drug Resistant Organisms: None Reported Past Surgical History: Heart Catheterization With Stent, Orthopedic Surgery Additional Past Surgical History / Comment(s): cryoablation for renal CA, Heart Catheterization 04/23/2021, Past Anesthesia/Blood Transfusion Reactions: No Reported Reaction Date of Last Stent Placement:: 04/23/21 Type of Cardiac Device: Biventricular Pacemaker, Unknown Device Placement Date:: unknown Past Psychological History: Depression, Panic Disorder, Schizophrenia Smoking Status: Never smoker Past Alcohol Use History: None Reported Past Drug Use History: None Reported - Past Family History Family Family Medical History: Hyperlipidemia General Exam Limitations: no limitations General appearance: alert (Follows commands.) Head exam: Present: atraumatic, normocephalic Eye exam: Present: normal appearance Neck exam: Present: normal inspection Respiratory exam: Present: normal lung sounds bilaterally Cardiovascular Exam: Present: regular rate GI/Abdominal exam: Present: soft, normal bowel sounds, other (No CVA tenderness to percussion bilaterally.). Absent: distended, tenderness, guarding, rebound, rigid Extremities exam: Present: normal inspection Back exam: Present: normal inspection Skin exam: Present: warm, dry Course Vital Signs 12/10/23 18:43 Temperature 98.3 F Pulse Rate 77 Respiratory 20 Rate Blood Pressure 102/67 O2 Sat by Pulse 95 Oximetry Medical Decision Making - Medical Decision Making Was pt. sent in by a medical professional or institution (, PA, BLUE [employer]ATHER [employer]TER, urgent care, hospital, or shelter...) When possible be specific @ -No Did you speak to anyone other than the patient for history (EMS, parent, family, police, friend...)? What history was obtained from this source @ -Spoke to the patient's sister who provided the majority of the history. Did you review nursing and triage notes (agree or disagree)? Why? @ -I reviewed and agree with nursing and triage notes Were old charts reviewed (outside hosp., previous admission, EMS record, old EKG, old radiological studies, urgent care reports/EKG's, shelter records)? Report findings @ -Prior admission and discharge reviewed. For further details please see HPI. Differential Diagnosis (chest pain, altered mental status, abdominal pain women, abdominal pain men, vaginal bleeding, weakness, fever, dyspnea, syncope, headache, dizziness, GI bleed, back pain, seizure, CVA, palpatations, mental health, musculoskeletal)? @ -Differential Altered Mental Status: Hypoglycemia, DKA, hypercapnia, ETOH, overdose, CO poisoning, trauma, myxedema coma, HTN encephalopathy, infection, encephalitis, psychosis, intercranial hemorrhage, hepatic encephalopathy, meningitis, CVA, this is not meant to be an all-inclusive list EKG interpreted by me (3pts min.). @ -EKG interpreted me showing a sinus rhythm at [address] or T wave changes. MS 151, QRS 90, QT/QTc 405/420. X-rays interpreted by me (1pt min.). @ -None done CT interpreted by me (1pt min.). @ -CT brain interpreted by me which revealed no evidence of acute finding. U/S interpreted by me (1pt. min.). @ -None done What testing was considered but not performed or refused? (CT, X-rays, U/S, labs)? Why? @ -None What meds were considered but not given or refused? Why? @ -None Did you discuss the management of the patient with other professionals (professionals i.e. , PA, BLUE LEATHER SETTER, lab, RT, psych nurse, social director, winch stripper, teacher, personnel training officer, case picker)? Give summary @ -Case discussed with Jonathan who accepts admission under [facility] and also request nephrology consult. Was smoking cessation discussed for >3mins.? @ -No Was critical care preformed (if so, how long)? @ -No Were there social determinants of health that impacted care today? How? (Homelessness, low income, unemployed, alcoholism, drug addiction, transportation, low edu. Level, literacy, decrease access to med. care, correction, rehab)? @ -No Was there de-escalation of care discussed even if they declined (Discuss DNR or withdrawal of care, Hospice)? DNR status @ -No What co-morbidities impacted this encounter? (DM, HTN, Smoking, COPD, CAD, Cancer, CVA, ARF, Chemo, Hep., AIDS, mental health diagnosis, sleep apnea, morbid obesity)? @ -None Was patient admitted / discharged? Hospital course, mention meds given and route, prescriptions, significant lab abnormalities, going to OR and other pertinent info. @ -Admission 67-year-old male medical history significant for Parkinson's with cognitive impairment, schizophrenia presented to the ED with complaints of altered mental status. Per patient's sister seem to be mumbling yesterday upon return to [facility] and friend there today stated that the patient was acting "weird". Laboratory studies reviewed. CBC largely unremarkable. Chemistry panel is significant for hyponatremia at 125, yesterday 135, otherwise largely unremarkable. UA shows trace blood. CT of the brain was performed which revealed no evidence of acute finding. Patient will be admitted secondary to hyponatremia with consults to psych and nephrology. Discussed plan of care with patient's sister who is his power of trust and estates attorney who is in agreement. Undiagnosed new problem with uncertain prognosis? @ -No Drug Therapy requiring intensive monitoring for toxicity (Heparin, Nitro, Insulin, Cardizem)? @ -No Were any procedures done? @ -No Diagnosis/symptom? @ -Altered mental status, hyponatremia Acute, or Chronic, or Acute on Chronic? @ -Acute Uncomplicated (without systemic symptoms) or Complicated (systemic symptoms)? @ -Complicated Side effects of treatment? @ -No Exacerbation, Progression, or Severe Exacerbation? @ -No Poses a threat to life or bodily function? How? (Chest pain, [place], [place], pneumonia, PE, COPD, DKA, ARF, appy, cholecystitis, CVA, Diverticulitis, Homicidal, Suicidal, threat to staff... and all critical care pts) @ -Possibly, however at this time unlikely - Lab Data Result diagrams: 12/10/23 19:48 12/10/23 19:48 Lab Results 12/10/23 12/10/23 12/10/23 Range/Units 19:48 19:48 19:48 WBC 6.5 (3.8-10.6) k/uL RBC 4.30 (4.30-5.90) m/uL Hgb 11.8 L (13.0-17.5) gm/dL Hct 36.0 L (39.0-53.0) % MCV 83.7 (80.0-100.0) fL MCH 27.5 (25.0-35.0) pg MCHC 32.9 (31.0-37.0) g/dL RDW 15.6 H (11.5-15.5) % Plt Count 267 (150-450) k/uL MPV 7.8 Neutrophils % 85 % Lymphocytes % 8 % Monocytes % 5 % Eosinophils % 2 % Basophils % 0 % Neutrophils # 5.5 (1.3-7.7) k/uL Lymphocytes # 0.5 L (1.0-4.8) k/uL Monocytes # 0.3 (0-1.0) k/uL Eosinophils # 0.1 (0-0.7) k/uL Basophils # 0.0 (0-0.2) k/uL PT 10.7 (10.0-12.5) sec INR 1.0 (<1.2) APTT 25.0 (22.0-30.0) sec Sodium 125 L (137-145) mmol/L Potassium 4.1 (3.5-5.1) mmol/L Chloride 97 L (98-107) mmol/L Carbon Dioxide 22 (22-30) mmol/L Anion Gap 6 mmol/L BUN 13 (9-20) mg/dL Creatinine 0.76 (0.66-1.25) mg/dL Est GFR (CKD-EPI)AfAm >90 (>60 ml/min/1.73 sqM) Est GFR (CKD-EPI)NonAf >90 (>60 ml/min/1.73 sqM) Glucose 108 H (74-99) mg/dL Calcium 8.5 (8.4-10.2) mg/dL Total Bilirubin 0.5 (0.2-1.3) mg/dL AST 17 (17-59) U/L ALT 8 (4-49) U/L Alkaline Phosphatase 78 (38-126) U/L Ammonia (<30) umol/L Troponin I (0.000-0.034) ng/mL Total Protein 5.7 L (6.3-8.2) g/dL Albumin 3.6 (3.5-5.0) g/dL Urine Color Urine Appearance (Clear) Urine pH (5.0-8.0) Ur Specific [place] (1.001-1.035) Urine Protein (Negative) Urine Glucose (UA) (Negative) Urine Ketones (Negative) Urine Blood (Negative) Urine Nitrite (Negative) Urine Bilirubin (Negative) Urine Urobilinogen (<2.0) mg/dL Ur Leukocyte Esterase (Negative) Urine RBC (0-5) /hpf Urine WBC (0-5) /hpf 12/10/23 12/10/23 12/10/23 Range/Units 19:48 19:48 21:25 WBC (3.8-10.6) k/uL RBC (4.30-5.90) m/uL Hgb (13.0-17.5) gm/dL Hct (39.0-53.0) % MCV (80.0-100.0) fL MCH (25.0-35.0) pg MCHC (31.0-37.0) g/dL RDW (11.5-15.5) % Plt Count (150-450) k/uL MPV Neutrophils % % Lymphocytes % % Monocytes % % Eosinophils % % Basophils % % Neutrophils # (1.3-7.7) k/uL Lymphocytes # (1.0-4.8) k/uL Monocytes # (0-1.0) k/uL Eosinophils # (0-0.7) k/uL Basophils # (0-0.2) k/uL PT (10.0-12.5) sec INR (<1.2) APTT (22.0-30.0) sec Sodium (137-145) mmol/L Potassium (3.5-5.1) mmol/L Chloride (98-107) mmol/L Carbon Dioxide (22-30) mmol/L Anion Gap mmol/L BUN (9-20) mg/dL Creatinine (0.66-1.25) mg/dL Est GFR (CKD-EPI)AfAm (>60 ml/min/1.73 sqM) Est GFR (CKD-EPI)NonAf (>60 ml/min/1.73 sqM) Glucose (74-99) mg/dL Calcium (8.4-10.2) mg/dL Total Bilirubin (0.2-1.3) mg/dL AST (17-59) U/L ALT (4-49) U/L Alkaline Phosphatase (38-126) U/L Ammonia <9 (<30) umol/L Troponin I <0.012 (0.000-0.034) ng/mL Total Protein (6.3-8.2) g/dL Albumin (3.5-5.0) g/dL Urine Color Colorless Urine Appearance Clear (Clear) Urine pH 6.5 (5.0-8.0) Ur Specific [place] 1.003 (1.001-1.035) Urine Protein Negative (Negative) Urine Glucose (UA) Negative (Negative) Urine Ketones Negative (Negative) Urine Blood Trace H (Negative) Urine Nitrite Negative (Negative) Urine Bilirubin Negative (Negative) Urine Urobilinogen <2.0 (<2.0) mg/dL Ur Leukocyte Esterase Negative (Negative) Urine RBC 1 (0-5) /hpf Urine WBC <1 (0-5) /hpf Disposition Clinical Impression: AMS (altered mental status), Hyponatremia Disposition: ADMITTED IP TO THIS HOSP Condition: Good Referrals: [facility],Clinic [Primary Care Provider] - 1-2 days Time of Disposition: 21:35
[2023-12-10 20:22] LABS: Prothrombin Time 10.7 sec (10.0-12.5)
[2023-12-10 20:24] LABS: ALT 8 U/L (4-49); AST 17 U/L (17-59); African American GFR (CKD) >90 (>60 ml/min/1.73 sqM); Albumin 3.6 g/dL (3.5-5.0); Alkaline Phosphatase 78 U/L (38-126); Anion Gap 6 mmol/L; Blood Urea Nitrogen 13 mg/dL (9-20); Calcium 8.5 mg/dL (8.4-10.2); Carbon Dioxide 22 mmol/L (22-30); Chloride 97 mmol/L (98-107); Glucose 108 mg/dL (74-99); Non-African American GFR(CKD) >90 (>60 ml/min/1.73 sqM); Potassium 4.1 mmol/L (3.5-5.1); Sodium 125 mmol/L (137-145); Total Bilirubin 0.5 mg/dL (0.2-1.3); Total Protein 5.7 g/dL (6.3-8.2)
[2023-12-10 20:25] LABS: Basophils % (A) 0 %; Eosinophils # (A) 0.1 k/uL (0-0.7); Eosinophils % (A) 2 %; HGB 11.8 gm/dL (13.0-17.5); Lymphocytes # (A) 0.5 k/uL (1.0-4.8); Lymphocytes % (A) 8 %; MCH 27.5 pg (25.0-35.0); MCHC 32.9 g/dL (31.0-37.0); MCV 83.7 fL (80.0-100.0); Mean Platelet Volume 7.8; Monocytes # (A) 0.3 k/uL (0-1.0); Monocytes % (A) 5 %; Neutrophils # (A) 5.5 k/uL (1.3-7.7); Neutrophils % (A) 85 %; Platelet Count 267 k/uL (150-450); RDW 15.6 % (11.5-15.5); WBC 6.5 k/uL (3.8-10.6)
--- NOTE | 2023-12-10 20:56 | CT ---
EXAMINATION TYPE: CT brain wo con DATE OF EXAM: 12/10/2023 HISTORY: ams CT DLP: 1328.7 mGycm. Automated Exposure Control for Dose Reduction was Utilized. TECHNIQUE: CT scan of the head is performed without contrast. COMPARISON: CT 11/18/2023 FINDINGS: There is no skull fracture or intracranial hemorrhage. No mass or mass effect. No definite new attenuation defect. No extra-axial fluid collection. Orbits are unremarkable. Mastoid sinus air c ells, middle ear cavities and paranasal sinuses are clear. IMPRESSION: No acute process.
[2023-12-10 21:32] LABS: Appearance,Urine Clear (Clear); Bilirubin,Urine Negative (Negative); Blood,Urine Trace (Negative); Color,Urine Colorless; Glucose,Urine (UA) Negative (Negative); Ketones,Urine Negative (Negative); Leukocyte Esterase,Urine Negative (Negative); Nitrite,Urine Negative (Negative); PH, Urine 6.5 (5.0-8.0); Protein,Urine Negative (Negative); RBC,Urine 1 /hpf (0-5); Specific Gravity,Urine 1.003 (1.001-1.035); Urobilinogen,Urine <2.0 mg/dL (<2.0); WBC,Urine <1 /hpf (0-5)
[2023-12-10] MEDS ORDERED: NALOXONE 0.4 MG/ML 1 ML VIAL IV PRN (21:49)
[2023-12-10] MEDS: SODIUM CHLORIDE 0.9% 1,000 ML IV SCH (22:34)
[2023-12-10] MEDS: SULFAMETHOX-TMP 800-160MG 1 EACH TAB PO SCH (22:37)
[2023-12-11] MEDS ORDERED: KETOROLAC 15 MG/ML 1 ML VIAL IVP PRN (01:03)
[2023-12-11] MEDS: ACETAMINOPHEN TAB 325 MG TAB PO PRN (01:14)
[2023-12-11] MEDS ORDERED: PANTOPRAZOLE 40 MG TABLET PO SCH (07:30)
[2023-12-11] MEDS ORDERED: LIDOCAINE 4% PATCH TOPICAL PRN (07:57)
[2023-12-11] MEDS ORDERED: SENNOSIDES-DOCUSATE SODIUM 1 EACH TAB PO PRN (07:57)
[2023-12-11] MEDS: METOPROLOL SUCCINATE (ER) 50 MG TAB.ER.24H PO SCH (08:55)
[2023-12-11] MEDS: SULFAMETHOX-TMP 800-160MG 1 EACH TAB PO SCH (08:55)
[2023-12-11] MEDS: CARBIDOPA-LEVODOPA 25-100 MG 1 EACH TAB PO SCH (11:00)
--- NOTE | 2023-12-11 12:22 | P.NPCON ---
History of Present Illness - Reason for Consult hyponatremia - History of Present Illness patient is a 67-year-old male with history of schizophrenia, coronary artery disease, Parkinson's disease with cognitive impairment who was recently discharged from the hospital on 12/09/2023 after hospitalization for mental status changes which were presumed to be secondary to hyponatremia and UTI. Serum sodium was as low as 122 during the last admission and it improved to 136 the next day with saline administration. serum sodium was 135 on 12/09/2023 and dropped back down to 125 on 12/10/2023. Patient came back to the hospital with complaints of increased headache. He denied any significant nausea or vomiting.next Urine osmolality at 129 this admission with the random urine sodium at 24. Repeat labs are pending from today. Review of Systems as per HPI Past Medical History Past Medical History: Hyperlipidemia, Hypertension, Myocardial Infarction ([place]) Additional Past Medical History / Comment(s): renal CA with surgery, parkinson's Last Myocardial Infarction Date:: unknown History of Any Multi-Drug Resistant Organisms: None Reported Past Surgical History: Heart Catheterization With Stent, Orthopedic Surgery Additional Past Surgical History / Comment(s): cryoablation for renal CA, Heart Catheterization 04/23/2021, Past Anesthesia/Blood Transfusion Reactions: No Reported Reaction Date of Last Stent Placement:: 04/23/21 Type of Cardiac Device: Biventricular Pacemaker, Unknown Device Placement Date:: unknown Past Psychological History: Depression, Panic Disorder, Schizophrenia Smoking Status: Never smoker Past Alcohol Use History: None Reported Past Drug Use History: None Reported - Past Family History Family Family Medical History: Hyperlipidemia Medications and Allergies Home Medications Medication Instructions Recorded Confirmed Type Omeprazole 40 mg PO AC-BRKFST@0800 12/09/20 12/11/23 History Aspirin 81 mg PO DAILY@0700 07/28/21 12/11/23 History cloZAPine [Clozaril] 300 mg PO HS@1900 02/03/22 12/11/23 History Atorvastatin [Lipitor] 80 mg PO HS@1900 07/04/22 12/11/23 History Clopidogrel [Plavix] 75 mg PO DAILY@0700 07/04/22 12/11/23 History cloZAPine [Clozaril] 200 mg PO BID@0700,1500 07/04/22 12/11/23 History Carbidopa-Levodopa 25-100 mg 1 tab PO QID@07,11,15,19 11/05/23 05/17/24 History [Sinemet 25-100 mg] Tamsulosin [Flomax] 0.4 mg PO HS@1900 05/31/23 12/11/23 History Sennosides/Docusate Sodium [Senna 1 tab PO TID PRN 06/14/23 12/11/23 History Plus 8.6-50 mg Tablet] Lidocaine 5% Patch [Lidoderm 5% 1 patch TRANSDERM DAILY PRN 09/27/23 12/11/23 History Patch] Acetaminophen Tab [Tylenol] 1,000 mg PO BID PRN 11/18/23 12/11/23 History Metoprolol Succinate (ER) [Toprol 50 mg PO DAILY@0800 11/18/23 12/11/23 History XL] Midodrine HCl [ProAmantine] 2.5 mg PO BID@0800,1500 11/18/23 12/11/23 History Sulfamethox-Tmp 800-160Mg [Bactrim 1 tab PO Q12HR #8 tab 12/09/23 12/11/23 Rx DS 800-160 mg] clonazePAM [Klonopin ODT] 0.25 mg PO TID@0700,1500,1900 12/11/23 12/11/23 History Allergies Allergy/AdvReac Type Severity Reaction Status Date / Time No Known Allergies Allergy Verified 12/11/23 09:44 Physical Exam Vitals: Vital Signs Temp Pulse Pulse Resp BP BP Pulse Ox 12/11/23 08:00 64 16 152/86 96 12/11/23 02:00 61 12 142/92 99 12/11/23 00:23 56 L 18 118/71 98 12/10/23 23:16 61 18 130/86 99 12/10/23 22:40 67 16 157/87 97 12/10/23 18:43 98.3 F 77 20 102/67 95 Intake and Output 12/10/23 12/11/23 12/11/23 22:59 06:59 14:59 Intake Total 650 Output Total 1500 Balance -850 Intake: Intake, IV Titration 300 Amount Sodium Chloride 0.9% 1, 300 000 ml @ 50 mls/hr IV . Q20H [facility] Rx#:[id number] Oral 350 Output: Urine 1500 Other: Weight 90.718 kg patient is awake, comfortable, no acute distress. Examination of the heart S1 and S2 Examination of the lungs bilateral breath sounds are heard Abdomen is soft nontender Examination of lower extremities shows no significant edema [employer] O[employer] exam grossly intact Results - Lab Results Most recent lab results Calcium 8.5 mg/dL (8.4-10.2) 12/10/23 19:48 12/10/23 19:48 12/10/23 19:48 Assessment and Plan Assessment: 1. Hyponatremia, hypovolemic or euvolemic. 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 Urine osmolality is low at 129. Serum sodium improved significantly during the last admission with normal saline. 2. Recent UTIwith urine culture growing Acinetobacter, status post antibiotics on 12/04/2023 3. Altered mentation possibly related to recurring hyponatremia 4. History of schizophrenia Plan: Repeat sodium now May continue with normal saline at 50 mL an hour. Patient is encouraged to increase oral protein intake. Maintain some degree of free water restriction. Repeat sodium later this afternoon.X Thank you for the consultation. We will continue to follow the patient with you during his hospitalization.
[2023-12-11 12:57] LABS: Basophils % (A) 1 %; Eosinophils # (A) 0.2 k/uL (0-0.7); Eosinophils % (A) 3 %; HCT 40.3 % (39.0-53.0); HGB 12.7 gm/dL (13.0-17.5); Lymphocytes # (A) 0.8 k/uL (1.0-4.8); Lymphocytes % (A) 14 %; MCH 27.5 pg (25.0-35.0); MCHC 31.5 g/dL (31.0-37.0); MCV 87.4 fL (80.0-100.0); Mean Platelet Volume 7.4; Monocytes # (A) 0.4 k/uL (0-1.0); Monocytes % (A) 8 %; Neutrophils # (A) 3.9 k/uL (1.3-7.7); Neutrophils % (A) 73 %; Platelet Count 286 k/uL (150-450); RBC 4.61 m/uL (4.30-5.90); RDW 15.8 % (11.5-15.5); WBC 5.4 k/uL (3.8-10.6)
--- NOTE | 2023-12-11 13:04 | P.HPIM ---
History of Present Illness H&P Date: 12/11/23 History of Presenting Illness: Patient is a 67-year-old male with a past medical history of CAD with previous stenting, hypertension, hyperlipidemia, chronic hyponatremia, Parkinson's disease with cognitive impairment, schizophrenia, depression, and panic disorder. He presented to the emergency department 12/10/2023 from his group [facility]sy [facility] secondary to confusion and visual hallucinations. Pt has had recurrent admissions at our facility for similar complaints and was recently hospitalized on 12/04/23-12/09/23 and discharged home on Bactrim for Acitrobacter urinary tract infection. Upon arrival to our facility, patient underwent evaluation. Vital signs upon arrival show blood pressure 102/67, heart rate 77, respiratory rate 20, temp 98.3 F, and SpO2 of 95% on room air. EKG was completed showing normal sinus rhythm at 67 bpm with no noted T wave or ST abnormalities showing no signs of acute ischemia upon personal review and interpretation. CT brain negative for acute intracranial process. Labs completed and reviewed. CBC showing stable normocytic anemia with hemoglobin of 11.8 and at baseline. BMP showing acute on chronic hyponatremia with sodium of 125 and chloride of 97. Blood glucose was 108. Liver profile unremarkable. Troponin negative at less than 0.012. Urinalysis negative for infection. Urine osmolality 129 and random sodium of 24. Patient was started on gentle IV fluid hydration with 0.9% normal saline. Patient admitted under our services with consultation to nephrology. Patient was seen and fully evaluated at bedside this morning. He is alert to person, place, and time and appears at baseline mentation at time of assessment. The patient was initially admitted under a different hospitalist group, we were notified of this admission this morning. Patient denies having any complaints including headache, lightheadedness, dizziness, chest pain, palpitation, shortness of breath, or experiencing any numbness/tingling/weakness/swelling remedies. Review of systems: Pertinent positives and negatives as discussed in HPI, a complete review of systems was performed and all other systems are negative. Physical exam: Vital signs reviewed and stable. General: Nontoxic, no distress and appears stated age. Derm: Skin warm and dry, normal coloration for ethnicity. Head: Atraumatic, normocephalic and symmetric. Eyes: EOMs intact, no lid lag, and anicteric sclera Mouth: no lip lesions, mucus membranes moist Cardiovascular: regular rate and rhythm with normal S1S2, no murmur, positive posterior tibial pulses bilaterally, and cap refill < 2 seconds. Lungs: Respirations even, regular, and unlabored on room air. Lungs CTA bilaterally, no rhonchi, no rales, no wheezing, and no accessory muscle usage. Abdominal: soft, nontender to palpation, no guarding, no appreciable organ omegaly Ext: ROM intact. No gross muscle atrophy, no edema, no contractures Neuro: Speech clear, face symmetrical and CN II-XII grossly intact with no noted focal neuro deficits Psych: Alert and oriented to person, place, time, and situation. Appropriate and pleasant affect. Assessment and Plan of Care: Acute metabolic encephalopathy with visual and auditory hallucinations. Unclear etiology possibly secondary to hyponatremia but likely secondary to underlying schizophrenia and Parkinson's dementia Acute on Chronic Hyponatremia: -Patient admitted to observation unit for evaluation. -Neurochecks every 4 hours. -Fall precautions and seizure precautions in place. -Telemetry monitoring -Consult placed to nephrology for evaluation -Continue with gentle IV fluid hydration with 0.9% normal saline at 50 cc/h. Acinetobacter urinary tract infection. Recently diagnosed. Patient to complete remaining course of Bactrim 800-160 mg tablets every 12 hours. Parkinson's disease with cognitive impairment. Patient to continue daily medication regimen with carbidopa levodopa 25-100 mg tablets 4 times daily. Schizophrenia. Patient to continue daily medication regimen with Klonopin 0.5 mg twice daily and clozapine 200 mg twice daily and 300 mg at bedtime. Panic disorder. Patient to continue daily medication regimen with clozapine 200 mg twice daily and 300 mg at bedtime. Will hold Klonopin secondary to reports of altered mental status. History of CAD with previous stenting and biventricular pacemaker placement. Continue daily medication regimen with aspirin 81 mg daily, atorvastatin 80 mg nightly, Plavix 75 mg daily and metoprolol 50 mg daily. Hypertension. Continue daily medication regimen with metoprolol 50 mg daily. Hyperlipidemia. Continue daily medication regimen with atorvastatin 80 mg nightly. BPH. Continue Flomax 0.4 mg nightly. 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 Anticipated discharge place: [facility] Patient was seen independently by Nurse Practitioner. This document was prepared using Dragon dictation software. Please allow for errors in territory sales representative while rare they do occur. Past Medical History Past Medical History: Hyperlipidemia, Hypertension, Myocardial Infarction (NH) Additional Past Medical History / Comment(s): renal CA with surgery, parkinson's Last Myocardial Infarction Date:: unknown History of Any Multi-Drug Resistant Organisms: None Reported Past Surgical History: Heart Catheterization With Stent, Orthopedic Surgery Additional Past Surgical History / Comment(s): cryoablation for renal CA, Heart Catheterization 04/23/2021, Past Anesthesia/Blood Transfusion Reactions: No Reported Reaction Date of Last Stent Placement:: 04/23/21 Type of Cardiac Device: Biventricular Pacemaker, Unknown Device Placement Date:: unknown Past Psychological History: Depression, Panic Disorder, Schizophrenia Smoking Status: Never smoker Past Alcohol Use History: None Reported Past Drug Use History: None Reported - Past Family History Family Family Medical History: Hyperlipidemia Medications and Allergies Home Medications Medication Instructions Recorded Confirmed Type Omeprazole 40 mg PO AC-BRKFST@0800 12/09/20 12/11/23 History Aspirin 81 mg PO DAILY@0700 07/28/21 12/11/23 History cloZAPine [Clozaril] 300 mg PO HS@1900 02/03/22 12/11/23 History Atorvastatin [Lipitor] 80 mg PO HS@1900 07/04/22 12/11/23 History Clopidogrel [Plavix] 75 mg PO DAILY@0700 07/04/22 12/11/23 History cloZAPine [Clozaril] 200 mg PO BID@0700,1500 07/04/22 12/11/23 History Carbidopa-Levodopa 25-100 mg 1 tab PO QID@07,11,15,19 05/31/23 12/11/23 History [Sinemet 25-100 mg] Tamsulosin [Flomax] 0.4 mg PO HS@1900 05/31/23 12/11/23 History Sennosides/Docusate Sodium [Senna 1 tab PO TID PRN 06/14/23 12/11/23 History Plus 8.6-50 mg Tablet] Lidocaine 5% Patch [Lidoderm 5% 1 patch TRANSDERM DAILY PRN 09/27/23 12/11/23 History Patch] Acetaminophen Tab [Tylenol] 1,000 mg PO BID PRN 11/18/23 12/11/23 History Metoprolol Succinate (ER) [Toprol 50 mg PO DAILY@0800 11/18/23 12/11/23 History XL] Midodrine HCl [ProAmantine] 2.5 mg PO BID@0800,1500 11/18/23 12/11/23 History Sulfamethox-Tmp 800-160Mg [Bactrim 1 tab PO Q12HR #8 tab 12/09/23 12/11/23 Rx DS 800-160 mg] clonazePAM [Klonopin ODT] 0.25 mg PO TID@0700,1500,1900 12/11/23 12/11/23 History Allergies Allergy/AdvReac Type Severity Reaction Status Date / Time No Known Allergies Allergy Verified 12/11/23 09:44 Physical Exam Vitals: Vital Signs Temp Pulse Pulse Resp BP BP Pulse Ox 12/11/23 02:00 61 12 142/92 99 12/11/23 00:23 56 L 18 118/71 98 12/10/23 23:16 61 18 130/86 99 12/10/23 22:40 67 16 157/87 97 12/10/23 18:43 98.3 F 77 20 102/67 95 Intake and Output 12/10/23 12/11/23 12/11/23 22:59 06:59 14:59 Intake Total 650 Output Total 1500 Balance -850 Intake: Intake, IV Titration 300 Amount Sodium Chloride 0.9% 1, 300 000 ml @ 50 mls/hr IV . Q20H [facility] Rx#:[id number] Oral 350 Output: Urine 1500 Other: Weight 90.718 kg Results CBC & Chem 7: 12/11/23 12:37 12/11/23 12:37 Labs: Abnormal Lab Results - Last 24 Hours (Table) 12/10/23 12/10/23 12/10/23 Range/Units 19:48 19:48 21:25 Hgb 11.8 L (13.0-17.5) gm/dL Hct 36.0 L (39.0-53.0) % RDW 15.6 H (11.5-15.5) % Lymphocytes # 0.5 L (1.0-4.8) k/uL Sodium 125 L (137-145) mmol/L Chloride 97 L (98-107) mmol/L Glucose 108 H (74-99) mg/dL Total Protein 5.7 L (6.3-8.2) g/dL Urine Blood Trace H (Negative) Urine Osmolality (400-1100) mOsm/kg Ur Random Sodium (40-220) mmol/L 12/10/23 12/10/23 Range/Units 21:25 21:25 Hgb (13.0-17.5) gm/dL Hct (39.0-53.0) % RDW (11.5-15.5) % Lymphocytes # (1.0-4.8) k/uL Sodium (137-145) mmol/L Chloride (98-107) mmol/L Glucose (74-99) mg/dL Total Protein (6.3-8.2) g/dL Urine Blood (Negative) Urine Osmolality 129 L (400-1100) mOsm/kg Ur Random Sodium 24 L (40-220) mmol/L
[2023-12-11 13:15] LABS: African American GFR (CKD) >90 (>60 ml/min/1.73 sqM); Anion Gap 3 mmol/L; Blood Urea Nitrogen 10 mg/dL (9-20); Calcium 8.8 mg/dL (8.4-10.2); Carbon Dioxide 29 mmol/L (22-30); Chloride 102 mmol/L (98-107); Glucose 106 mg/dL (74-99); Magnesium 2.2 mg/dL (1.6-2.3); Non-African American GFR(CKD) >90 (>60 ml/min/1.73 sqM); Potassium 4.9 mmol/L (3.5-5.1); Sodium 134 mmol/L (137-145)
[2023-12-11] MEDS: cloZAPine 100 MG TAB PO SCH ×2 (17:02→22:13)
[2023-12-11] MEDS: PANTOPRAZOLE 40 MG TABLET PO SCH (17:06)
[2023-12-11] MEDS: TAMSULOSIN 0.4 MG CAP.ER.24H PO SCH (22:12)
[2023-12-11] MEDS: ATORVASTATIN 80 MG TAB PO SCH (22:13)
[2023-12-12] MEDS ORDERED: DULoxetine HCL 60 MG CAPSULE.DR PO SCH (07:00)
[2023-12-12] MEDS: CLOPIDOGREL 75 MG TAB PO SCH (09:17)
[2023-12-12] MEDS: ASPIRIN 81 MG PO SCH (09:18)
[2023-12-12] MEDS: ENOXAPARIN 40 MG/0.4 ML SYRINGE SQ SCH (09:18)
[2023-12-12 09:35] VITALS: BP 126/80; RESP 18; TEMP 98.1
[2023-12-12 09:39] LABS: African American GFR (CKD) >90 (>60 ml/min/1.73 sqM); Anion Gap 5 mmol/L; Blood Urea Nitrogen 12 mg/dL (9-20); Calcium 8.6 mg/dL (8.4-10.2); Carbon Dioxide 25 mmol/L (22-30); Chloride 104 mmol/L (98-107); Glucose 173 mg/dL (74-99); Non-African American GFR(CKD) 90 (>60 ml/min/1.73 sqM); Potassium 4.2 mmol/L (3.5-5.1); Sodium 134 mmol/L (137-145)
[2023-12-12 11:13] VITALS: PULSE 60
--- NOTE | 2023-12-12 11:44 | P.PN ---
Subjective patient is seen for follow-up for hyponatremia which improved significantly with normal saline administration. There is consideration of increased water intake as outpatient. Patient will benefit from sodium chloride tabs as he will not comply with fluid restriction upon discharge. No significant complaints today. Objective - Vital Signs Vital signs: Vital Signs Temp 98.1 F 12/12/23 08:00 Pulse 60 12/12/23 08:30 Resp 18 12/12/23 08:30 BP 126/80 12/12/23 08:00 Pulse Ox 97 12/12/23 08:00 FiO2 Intake & Output 12/11/23 12/12/23 12/12/23 18:59 06:59 18:59 Intake Total 840 240 240 Balance 840 240 240 Weight 90.718 kg Intake: Intake, IV Titration 600 Amount Sodium Chloride 0.9% 1, 600 000 ml @ 50 mls/hr IV . Q20H [facility] Rx#:[id number] Oral 240 240 240 Other: Voiding Method Urinal Urinal - Exam patient is awake, comfortable, no acute distress. Examination of the heart S1 and S2 Examination of the lungs bilateral breath sounds are heard Abdomen is soft nontender Examination of lower extremities shows no significant edema [employer] exam grossly intact - Labs CBC & Chem 7: 12/11/23 12:37 12/12/23 09:03 Labs: Abnormal Lab Results - Last 24 Hours (Table) 12/11/23 12/11/23 12/11/23 Range/Units 12:37 12:37 12:37 Hgb 12.7 L (13.0-17.5) gm/dL RDW 15.8 H (11.5-15.5) % Lymphocytes # 0.8 L (1.0-4.8) k/uL Sodium 134 L 134 L (137-145) mmol/L Glucose 106 H (74-99) mg/dL 12/12/23 Range/Units 09:03 Hgb (13.0-17.5) gm/dL RDW (11.5-15.5) % Lymphocytes # (1.0-4.8) k/uL Sodium 134 L (137-145) mmol/L Glucose 173 H (74-99) mg/dL Assessment and Plan Assessment: 1. Hyponatremia, hypovolemic or euvolemic. 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 Urine osmolality is low at 129. Serum sodium improved significantly with normal saline. add sodium chloride 1 g daily upon discharge 2. Recent UTI with urine culture growing Acinetobacter, status post antibiotics on 12/04/2023 3. Altered mentation possibly related to recurring hyponatremia 4. History of schizophrenia Plan: patient can be discharged from nephrology standpoint. Add sodium chloride 1 g daily. Reinforced fluid restriction. Repeat labs in 2-3 days post discharge.
--- NOTE | 2023-12-12 12:19 | P.DS ---
Providers Date of admission: 12/10/23 22:37 Expected date of discharge: 12/12/23 Attending physician: Ivan Bedoya MD Consults: 12/10/23 21:49 Consult Physician Urgent Consulting Provider: Onofre Elizondo Consult Reason/Comments: AMS Do you want consulting provider notified?: Yes Consult Physician Urgent Consulting Provider: Val Alejandre Consult Reason/Comments: Hyponatremia Do you want consulting provider notified?: Yes Primary care physician: [facility] Hospital Course: Discharge Diagnosis: Acute metabolic encephalopathy with visual and auditory hallucinations Acute on Chronic Hyponatremia Acinetobacter urinary tract infection Parkinson's disease with cognitive impairment Schizophrenia Panic disorder History of CAD with previous stenting and biventricular pacemaker placement Hypertension Hyperlipidemia BPH Hospital Course: 67-year-old male with a past medical history of CAD with previous stenting, hypertension, hyperlipidemia, chronic hyponatremia, Parkinson's disease with cognitive impairment, schizophrenia, depression, and panic disorder. He presented to the emergency department 12/10/2023 from his long-term secondary to confusion and visual hallucinations. Pt has had recurrent admissions at our facility for similar complaints and was recently hospitalized on 12/04/23-12/09/23 and discharged home on Bactrim for Acitrobacter urinary tract infection. On arrival, vital signs unremarkable, EKG, CT head unremarkable. BMP showing acute on chronic hyponatremia with sodium of 125 and chloride of 97. Urinalysis negative for infection. Urine osmolality 129 and random sodium of 24. Patient was started on gentle IV fluid hydration with 0.9% normal saline. Patient admitted under our services with consultation to nephrology. Sodium improved to 134. Mental status improved. Patient being discharged to nursing facility with sodium chloride tabs as well as fluid restriction. Follow-up outpatient with nephrology and urology for recurrent UTIs. Repeat BMP in 3 days. Patient to complete his course of Bactrim on 12/13. Patient seen and examined at bedside. Vital signs reviewed and stable. General: Nontoxic, no distress, appears at stated age Derm: Warm, dry Head: Atraumatic, normocephalic, symmetric Eyes: EOMI, no lid lag, anicteric sclera Mouth: No lip lesion, mucus membranes moist Cardiovascular: S1S2 reg, no murmur Lungs: CTA bilateral, no rhonchi, no rales, no accessory muscle use Abdominal: Soft, nontender to palpation, no guarding, no appreciable organomegaly Ext: No gross muscle atrophy, no edema, no contractures Neuro: CN II-XI grossly intact, no focal neuro deficits Psych: Alert, oriented, appropriate affect A total of 33 minutes of time were spent preparing this complex discharge summary. Patient was discharged on 12/12/2023 at 1143. Patient Condition at Discharge: Stable Plan - Discharge Summary New Discharge Prescriptions: New Sodium Chloride Tab 1 gm PO DAILY #7 tablet Continue Omeprazole 40 mg PO AC-BRKFST@0800 cloZAPine [Clozaril] 300 mg PO HS@1900 Carbidopa-Levodopa 25-100 mg [Sinemet 25-100 mg] 1 tab PO QID@07,11,15,19 Sennosides/Docusate Sodium [Senna Plus 8.6-50 mg Tablet] 1 tab PO TID PRN PRN Reason: Constipation Acetaminophen Tab [Tylenol] 1,000 mg PO BID PRN PRN Reason: Fever And/ Or Pain Metoprolol Succinate (ER) [Toprol XL] 50 mg PO DAILY@0800 Sulfamethox-Tmp 800-160Mg [Bactrim DS 800-160 mg] 1 tab PO Q12HR #8 tab Aspirin 81 mg PO DAILY@0700 cloZAPine [Clozaril] 200 mg PO BID@0700,1500 Clopidogrel [Plavix] 75 mg PO DAILY@0700 Atorvastatin [Lipitor] 80 mg PO HS@1900 Tamsulosin [Flomax] 0.4 mg PO HS@1900 Lidocaine 5% Patch [Lidoderm 5% Patch] 1 patch TRANSDERM DAILY PRN PRN Reason: Pain Discontinued Midodrine HCl [ProAmantine] 2.5 mg PO BID@0800,1500 clonazePAM [Klonopin ODT] 0.25 mg PO TID@0700,1500,1900 Discharge Medication List Omeprazole 40 mg PO AC-BRKFST@0800 12/09/20 [History] Aspirin 81 mg PO DAILY@0700 07/28/21 [History] cloZAPine [Clozaril] 300 mg PO HS@1900 02/03/22 [History] Atorvastatin [Lipitor] 80 mg PO HS@1900 07/04/22 [History] Clopidogrel [Plavix] 75 mg PO DAILY@0700 07/04/22 [History] cloZAPine [Clozaril] 200 mg PO BID@0700,1500 12/09/22 [History] Carbidopa-Levodopa 25-100 mg [Sinemet 25-100 mg] 1 tab PO QID@07,11,,19 05/31/23 [History] Tamsulosin [Flomax] 0.4 mg PO HS@1900 05/31/23 [History] Sennosides/Docusate Sodium [Senna Plus 8.6-50 mg Tablet] 1 tab PO TID PRN 06/14/23 [History] Lidocaine 5% Patch [Lidoderm 5% Patch] 1 patch TRANSDERM DAILY PRN 09/27/23 [History] Acetaminophen Tab [Tylenol] 1,000 mg PO BID PRN 11/18/23 [History] Metoprolol Succinate (ER) [Toprol XL] 50 mg PO DAILY@0800 11/18/23 [History] Sulfamethox-Tmp 800-160Mg [Bactrim DS 800-160 mg] 1 tab PO Q12HR #8 tab 12/09/23 [Rx] Sodium Chloride Tab 1 gm PO DAILY #7 tablet 12/12/23 [Rx] Follow up Appointment(s)/Referral(s): Val Alejandre MD [STAFF PHYSICIAN] - 1 Week [facility],Clinic [Primary Care Provider] - 1-2 days Patient Instructions/Handouts: Hyponatremia (DC), Encephalopathy (DC) Activity/Diet/Wound Care/Special Instructions: Repeat BMP in 3 days, see nephrology. Restrict fluid to 1500 ml daily. Also make an appointment to see a urologist for recurrent UTI. Finish course of antibiotics on 12/13. Discharge Disposition: TRANSFER TO SNF/ECF
--- NOTE | 2023-12-12 14:26 | P.CN ---
Psychiatric Consult - . Consult date: 12/12/23 Consult:: 12/12/23 14:21 Patient Name: González Russell Date of : 1955 Patient Status: Inpatient Attending Provider: Ivan Bedoya Date: 12/12/23 Initialization Date: 12/11/23 08:22 lottie is a 67-year-old male with a past medical history of CAD with previous stenting, hypertension, hyperlipidemia, chronic hyponatremia, Parkinson's disease with cognitive impairment, schizophrenia, depression, and panic disorder. He presented to the emergency department 12/10/2023 from his [facility] secondary to confusion and visual hallucinations. Pt has had recurrent admissions at our facility for similar complaints and was recently hospitalized on 12/04/23-12/09/23 and discharged home on Bactrim for Acitrobacter urinary tract infection. a psychiatric consultation was requested due to her his psychotic symptoms Reviewing the chart also reveals that the patient is on Clozaril This is also on prescribing combination with the Parkinson's disease due to the antipsychotics mostly not compatible as well as has a tendency to induce antiparkinsonian effects Patient is seen today was packing his stuff and was ready to leave Patient states that he currently lives in a residential care/assisted living He says that he is 100% [employer] discharge and that he is on disability since 1980 Skin he denies any is having any emotional problems or issues He says that he has been involved in psychiatric outpatient follow-up and care this is early 89 He denies any thoughts of wanting to hurt himself or others He currently denies any auditory or visual hallucinations He denies any thoughts of wanting to hurt himself or others Mental status examination: MSE: Alert and attentive. Orientation times three Dressed and Groomed: Appropriately. Pleasant and cooperative. Psychomotor Activity: Normal. Speech: Normal in tone, quality, and quantity. Mood: I feel fine Affect: euthymic SI or HI: None. Perceptual disturbance: no overt psychosis noted Patient denies any auditory or visual hallucinations Thought Content: No paranoia or other delusional thinking noted. Thought Process: Normal. 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 Parkinson's disease schizophrenia chronic undifferentiated type by history plan: The patient this time does not meet the criteria for inpatient psychiatric hospitalization The patient appears to be quite stable on his current combination of medications is recommended to follow with his psychiatrist as an outpatient as well as for local mental health services for outpatient care Patient should maintain appropriate precautions due to the side effects that emerge from the Clozaril with regular periodic WBC count and ANC count Thank you very much for current referral please refer to contact me if any further questions Jf Orozco M.D.
== END 2023-12-12 15:44 | DRG 56 ==
LOC: EC 18:33 → 5NMEDONC 22:36 → OBSVTOIN 22:37 → 5NMEDONC 12-11 02:25
PROVIDERS: ADMIT Internal Medicine; ATTEND Internal Medicine
DX: G20.A1 Parkinson's disease without dyskinesia, without mention of fluctuations (principal); G93.41 Metabolic encephalopathy; E87.1 Hypo-osmolality and hyponatremia; N39.0 Urinary tract infection, site not specified; B96.83 Acinetobacter baumannii as the cause of diseases classified elsewhere; I25.10 Atherosclerotic heart disease of native coronary artery without angina pectoris; F20.9 Schizophrenia, unspecified; I10 Essential (primary) hypertension; N40.1 Benign prostatic hyperplasia with lower urinary tract symptoms; F02.80 Dementia in other diseases classified elsewhere, unspecified severity, without behavioral disturbance, psychotic disturbance, mood disturbance, and anxiety; E78.5 Hyperlipidemia, unspecified; Z79.02 Long term (current) use of antithrombotics/antiplatelets; Z79.82 Long term (current) use of aspirin; Z79.899 Other long term (current) drug therapy; Z85.528 Personal history of other malignant neoplasm of kidney; Z87.440 Personal history of urinary (tract) infections; Z95.0 Presence of cardiac pacemaker; Z95.5 Presence of coronary angioplasty implant and graft
CPT/HCPCS: 36415; 70450; 80048; 80053; 81001; 82140; 83735; 83935; 84295; 84300; 84484; 85025; 85610; 85730; 93005; 99285

== ENCOUNTER 2023-12-20 19:30 | Observation (INO) | payer OTHER, MEDICARE ==
[2023-12-20 20:38] LABS: Basophils % (A) 0 %; Eosinophils % (A) 0 %; HCT 32.4 % (39.0-53.0); HGB 11.3 gm/dL (13.0-17.5); Lymphocytes # (A) 1.3 k/uL (1.0-4.8); Lymphocytes % (A) 12 %; MCH 29.5 pg (25.0-35.0); MCV 84.2 fL (80.0-100.0); Mean Platelet Volume 7.9; Monocytes # (A) 0.7 k/uL (0-1.0); Monocytes % (A) 6 %; Neutrophils # (A) 8.7 k/uL (1.3-7.7); Neutrophils % (A) 80 %; Platelet Count 264 k/uL (150-450); RBC 3.85 m/uL (4.30-5.90); RDW 15.6 % (11.5-15.5); WBC 10.9 k/uL (3.8-10.6)
[2023-12-20 20:52] LABS: ALT <6 U/L (4-49); AST 17 U/L (17-59); African American GFR (CKD) >90 (>60 ml/min/1.73 sqM); Albumin 3.6 g/dL (3.5-5.0); Alkaline Phosphatase 77 U/L (38-126); Anion Gap 6 mmol/L; Blood Urea Nitrogen 15 mg/dL (9-20); Calcium 8.5 mg/dL (8.4-10.2); Carbon Dioxide 25 mmol/L (22-30); Chloride 96 mmol/L (98-107); Glucose 114 mg/dL (74-99); Non-African American GFR(CKD) 89 (>60 ml/min/1.73 sqM); Potassium 3.8 mmol/L (3.5-5.1); Sodium 127 mmol/L (137-145); Total Bilirubin 0.8 mg/dL (0.2-1.3); Total Protein 5.6 g/dL (6.3-8.2)
--- NOTE | 2023-12-20 21:44 | ED ---
General Adult HPI - General Chief complaint: Psychiatric Symptoms Stated complaint: Mental Health Time Seen by Provider: 12/20/23 19:51 Source: family, EMS, RN notes reviewed Mode of arrival: EMS - History of Present Illness Initial comments: 68-year-old male with a past medical history significant for recurrent UTI, Parkinson disease with cognitive impairment, coronary artery disease status post stenting, pacemaker, schizophrenia presenting to the ED with complaints of altered mental status. Majority of the history provided by the patient's family. Was recently discharged from this facility and has been at rehab. While at rehab facility family notes that patient has made threats to hurt himself and hurt others. At this time, patient denies fever or chills, chest pain, shortness of breath, abdominal pain, nausea, vomiting, changes in bowel or bladder habits. No other complaints at this time. - Related Data Home Medications Medication Instructions Recorded Confirmed Omeprazole 40 mg PO AC-BRKFST@0800 12/09/20 12/11/23 Aspirin 81 mg PO DAILY@0700 07/28/21 12/11/23 cloZAPine [Clozaril] 300 mg PO HS@1900 02/03/22 12/11/23 Atorvastatin [Lipitor] 80 mg PO HS@1900 07/04/22 12/11/23 Clopidogrel [Plavix] 75 mg PO DAILY@0700 07/04/22 12/11/23 cloZAPine [Clozaril] 200 mg PO BID@0700,1500 07/04/22 12/11/23 Carbidopa-Levodopa 25-100 mg 1 tab PO QID@07,11,15,19 05/31/23 12/11/23 [Sinemet 25-100 mg] Tamsulosin [Flomax] 0.4 mg PO HS@1900 05/31/23 12/11/23 Sennosides/Docusate Sodium [Senna 1 tab PO TID PRN 06/14/23 12/11/23 Plus 8.6-50 mg Tablet] Lidocaine 5% Patch [Lidoderm 5% 1 patch TRANSDERM DAILY PRN 09/27/23 12/11/23 Patch] Acetaminophen Tab [Tylenol] 1,000 mg PO BID PRN 11/18/23 12/11/23 Metoprolol Succinate (ER) [Toprol 50 mg PO DAILY@0800 11/18/23 12/11/23 XL] Previous Rx's Medication Instructions Recorded Sulfamethox-Tmp 800-160Mg [Bactrim 1 tab PO Q12HR #8 tab 12/09/23 DS 800-160 mg] Sodium Chloride Tab 1 gm PO DAILY #7 tablet 12/12/23 Allergies Allergy/AdvReac Type Severity Reaction Status Date / Time No Known Allergies Allergy Verified 12/20/23 19:45 Review of Systems ROS Statement: Those systems with pertinent positive or pertinent negative responses have been documented in the HPI. ROS Other: All systems not noted in ROS Statement are negative. Past Medical History Past Medical History: Hyperlipidemia, Hypertension, Myocardial Infarction ([place]) Additional Past Medical History / Comment(s): renal CA with surgery, parkinson's Last Myocardial Infarction Date:: unknown History of Any Multi-Drug Resistant Organisms: None Reported Past Surgical History: Heart Catheterization With Stent, Orthopedic Surgery Additional Past Surgical History / Comment(s): cryoablation for renal CA, Heart Catheterization 04/23/2021, Past Anesthesia/Blood Transfusion Reactions: No Reported Reaction Date of Last Stent Placement:: 04/23/21 Type of Cardiac Device: Biventricular Pacemaker, Unknown Device Placement Date:: unknown Past Psychological History: Depression, Panic Disorder, Schizophrenia Smoking Status: Never smoker - Past Family History Family Family Medical History: Hyperlipidemia General Exam General appearance: alert, in no apparent distress Eye exam: Present: normal appearance Neck exam: Present: normal inspection Respiratory exam: Present: normal lung sounds bilaterally Cardiovascular Exam: Present: regular rate GI/Abdominal exam: Present: soft, normal bowel sounds. Absent: distended, tenderness, guarding, rebound, rigid Neurological exam: Present: alert Skin exam: Present: warm, dry Course Vital Signs 12/20/23 19:41 Temperature 97.8 F Pulse Rate 84 Respiratory 17 Rate Blood Pressure 153/87 O2 Sat by Pulse 99 Oximetry Medical Decision Making - Medical Decision Making Was pt. sent in by a medical professional or institution (, PA, ASSISTED LIVING COORDINATOR, urgent care, hospital, or [facility]...) When possible be specific @ -No Did you speak to anyone other than the patient for history (EMS, parent, family, police, friend...)? What history was obtained from this source @ -Also spoke to patient's family who provided majority of history. Did you review nursing and triage notes (agree or disagree)? Why? @ -I reviewed and agree with nursing and triage notes Were old charts reviewed (outside hosp., previous admission, EMS record, old EKG, old radiological studies, urgent care reports/EKG's, [facility] records)? Report findings @ -No old charts were reviewed Differential Diagnosis (chest pain, altered mental status, abdominal pain women, abdominal pain men, vaginal bleeding, weakness, fever, dyspnea, syncope, headache, dizziness, GI bleed, back pain, seizure, CVA, palpatations, mental health, musculoskeletal)? @ -Differential Altered Mental Status: Hypoglycemia, DKA, hypercapnia, ETOH, overdose, CO poisoning, trauma, myxedema coma, HTN encephalopathy, infection, encephalitis, psychosis, intercranial hemorrhage, hepatic encephalopathy, meningitis, CVA, this is not meant to be an all-inclusive list EKG interpreted by me (3pts min.). @ -None X-rays interpreted by me (1pt min.). @ -X-ray interpreted me showing findings concerning for possible right perihilar pneumonia. CT interpreted by me (1pt min.). @ -None done U/S interpreted by me (1pt. min.). @ -None done What testing was considered but not performed or refused? (CT, X-rays, U/S, labs)? Why? @ -None What meds were considered but not given or refused? Why? @ -None Did you discuss the management of the patient with other professionals (professionals i.e. , PA, ASSISTED LIVING COORDINATOR, lab, RT, psych nurse, health care social worker, tinsel machine operator, teacher, admissions officer, family service caseworker)? Give summary @ -Case discussed with Dr. Best, who accepts admission Was smoking cessation discussed for >3mins.? @ -No Was critical care preformed (if so, how long)? @ -No Were there social determinants of health that impacted care today? How? (Homelessness, low income, unemployed, alcoholism, drug addiction, transportation, low edu. Level, literacy, decrease access to med. care, fpc, rehab)? @ -No Was there de-escalation of care discussed even if they declined (Discuss DNR or withdrawal of care, Hospice)? DNR status @ -No What co-morbidities impacted this encounter? (DM, HTN, Smoking, COPD, CAD, Cancer, CVA, ARF, Chemo, Hep., AIDS, mental health diagnosis, sleep apnea, morbid obesity)? @ -Parkinson's with cognitive impairment, schizophrenia Was patient admitted / discharged? Hospital course, mention meds given and route, prescriptions, significant lab abnormalities, going to OR and other pertinent info. @ -Admission 68-year-old male presenting with family secondary to complaints of agitation/aggressive behavior at rehab facility. Laboratory studies reviewed. CBC does show an elevated white blood cell count 10.9, chemistry panel shows hyponatremia 127, serology panel unremarkable. X-ray does show possible developing right pneumonia. Patient will be admitted for antibiotics with consult to psychiatry. Undiagnosed new problem with uncertain prognosis? @ -No Drug Therapy requiring intensive monitoring for toxicity (Heparin, Nitro, Insulin, Cardizem)? @ -No Were any procedures done? @ -No Diagnosis/symptom? @ -Aggressive behavior, hyponatremia, possible developing ammonia Acute, or Chronic, or Acute on Chronic? @ -Acute Uncomplicated (without systemic symptoms) or Complicated (systemic symptoms)? @ -Uncomplicated Side effects of treatment? @ -No Exacerbation, Progression, or Severe Exacerbation? @ -No Poses a threat to life or bodily function? How? (Chest pain, [place], [place], pneumonia, PE, COPD, DKA, ARF, appy, cholecystitis, CVA, Diverticulitis, Homicidal, Suicidal, threat to staff... and all critical care pts) @ -Unlikely - Lab Data Result diagrams: 12/20/23 20:33 12/20/23 20:33 Lab Results 12/20/23 12/20/23 12/20/23 Range/Units 20:33 20:33 21:25 WBC 10.9 H (3.8-10.6) k/uL RBC 3.85 L (4.30-5.90) m/uL Hgb 11.3 L (13.0-17.5) gm/dL Hct 32.4 L (39.0-53.0) % MCV 84.2 (80.0-100.0) fL MCH 29.5 (25.0-35.0) pg MCHC 35.0 (31.0-37.0) g/dL RDW 15.6 H (11.5-15.5) % Plt Count 264 (150-450) k/uL MPV 7.9 Neutrophils % 80 % Lymphocytes % 12 % Monocytes % 6 % Eosinophils % 0 % Basophils % 0 % Neutrophils # 8.7 H (1.3-7.7) k/uL Lymphocytes # 1.3 (1.0-4.8) k/uL Monocytes # 0.7 (0-1.0) k/uL Eosinophils # 0.0 (0-0.7) k/uL Basophils # 0.0 (0-0.2) k/uL Sodium 127 L (137-145) mmol/L Potassium 3.8 (3.5-5.1) mmol/L Chloride 96 L (98-107) mmol/L Carbon Dioxide 25 (22-30) mmol/L Anion Gap 6 mmol/L BUN 15 (9-20) mg/dL Creatinine 0.86 (0.66-1.25) mg/dL Est GFR (CKD-EPI)AfAm >90 (>60 ml/min/1.73 sqM) Est GFR (CKD-EPI)NonAf 89 (>60 ml/min/1.73 sqM) Glucose 114 H (74-99) mg/dL Plasma Lactic Acid Rene 0.6 L (0.7-2.0) mmol/L Calcium 8.5 (8.4-10.2) mg/dL Total Bilirubin 0.8 (0.2-1.3) mg/dL AST 17 (17-59) U/L ALT <6 (4-49) U/L Alkaline Phosphatase 77 (38-126) U/L Total Protein 5.6 L (6.3-8.2) g/dL Albumin 3.6 (3.5-5.0) g/dL Influenza Type A (PCR) (Not Detectd) Influenza Type B (PCR) (Not Detectd) RSV (PCR) (Not Detectd) SARS-CoV-2 (PCR) (Not Detectd) 12/20/23 Range/Units 22:24 WBC (3.8-10.6) k/uL RBC (4.30-5.90) m/uL Hgb (13.0-17.5) gm/dL Hct (39.0-53.0) % MCV (80.0-100.0) fL MCH (25.0-35.0) pg MCHC (31.0-37.0) g/dL RDW (11.5-15.5) % Plt Count (150-450) k/uL MPV Neutrophils % % Lymphocytes % % Monocytes % % Eosinophils % % Basophils % % Neutrophils # (1.3-7.7) k/uL Lymphocytes # (1.0-4.8) k/uL Monocytes # (0-1.0) k/uL Eosinophils # (0-0.7) k/uL Basophils # (0-0.2) k/uL Sodium (137-145) mmol/L Potassium (3.5-5.1) mmol/L Chloride (98-107) mmol/L Carbon Dioxide (22-30) mmol/L Anion Gap mmol/L BUN (9-20) mg/dL Creatinine (0.66-1.25) mg/dL Est GFR (CKD-EPI)AfAm (>60 ml/min/1.73 sqM) Est GFR (CKD-EPI)NonAf (>60 ml/min/1.73 sqM) Glucose (74-99) mg/dL Plasma Lactic Acid Rene (0.7-2.0) mmol/L Calcium (8.4-10.2) mg/dL Total Bilirubin (0.2-1.3) mg/dL AST (17-59) U/L ALT (4-49) U/L Alkaline Phosphatase (38-126) U/L Total Protein (6.3-8.2) g/dL Albumin (3.5-5.0) g/dL Influenza Type A (PCR) Not Detected (Not Detectd) Influenza Type B (PCR) Not Detected (Not Detectd) RSV (PCR) Not Detected (Not Detectd) SARS-CoV-2 (PCR) Not Detected (Not Detectd) Disposition Clinical Impression: Aggressive behavior Disposition: ADMITTED IP TO THIS HOSP Condition: Good Referrals: [facility],Clinic [Primary Care Provider] - 1-2 days Time of Disposition: 00:50
--- NOTE | 2023-12-20 22:00 | XR ---
EXAMINATION TYPE: XR chest 2V DATE OF EXAM: 12/20/2023 COMPARISON: 09/26/2023 INDICATION: Pneumonia TECHNIQUE: Frontal and lateral views of the chest are obtained. FINDINGS: The heart size is normal. The pulmonary vasculature is normal. There is subtle increased lung markings in the right perihilar region. Correlate for pneumonia. Follo w-up can be performed as clinically indicated.. IMPRESSION: 1. Right perihilar pneumonia is not excluded. Consider viral pneumonia within the differential. Follo w-up can be performed as clinically indicated
[2023-12-21] MEDS ORDERED: PNEUMONIA PROTOCOL UTILIZED 1 EACH MISC PO PRN (01:12)
[2023-12-21] MEDS: SODIUM CHLORIDE 0.9% 1,000 ML IV SCH (02:47)
[2023-12-21 03:40] LABS: Appearance,Urine Clear (Clear); Bilirubin,Urine Negative (Negative); Blood,Urine Negative (Negative); Color,Urine Colorless; Glucose,Urine (UA) Negative (Negative); Ketones,Urine Negative (Negative); Leukocyte Esterase,Urine Negative (Negative); Nitrite,Urine Negative (Negative); Protein,Urine Negative (Negative); Specific Gravity,Urine 1.007 (1.001-1.035); Urobilinogen,Urine <2.0 mg/dL (<2.0)
--- NOTE | 2023-12-21 04:02 | P.HPIM ---
History of Present Illness H&P Date: 12/21/23 Chief Complaint: Aggressive behavior 68-year-old male with bipolar disorder, Parkinson disease, schizophrenia Patient was brought in due to aggressive behavior at the facility where he resides he was making homicidal and suicidal threats. Upon my evaluation family not present at bedside patient is awake oriented to self and place. He denies any headache fevers chills coughing sore throat runny nose shortness of breath chest pain denies any abdominal pain nausea vomiting changes in bowel or urinary habits Confronted him regarding his behavior, he denied and reported that he feels fine. He denies any hallucinations denies any suicidal or homicidal ideation. He admits that he was just trying to get other people attention with his behavior and stresses that at this time has no complaints review of systems Pertinent positives as noted in HPI. All other systems were reviewed and are negative on exam Constitutional: No acute distress, cooperative Eyes: Anicteric sclerae, moist conjunctiva, Pupils equal round reactive to light Neck: Supple, no masses, or JVD No carotid bruits No thyromegaly Lungs: Clear to auscultation Clear to percussion Normal respiratory effort, no accessory muscle use Cardiovascular: Heart regular in rate and rhythm, No murmurs, gallops, or rubs No peripheral edema Abdominal: Soft Nontender, no guarding, rebound or rigidity Abdomen moving with respiration Normoactive bowel sounds Extremities: No digital cyanosis No clubbing Pedal pulses intact and symmetrical Radial pulses intact and symmetrical No calf tenderness Psychiatric: Alert and oriented to person, place Neuro Muscles Strength 5/5 in all 4 extremities Sensation to light touch grossly present throughout Past Medical History Past Medical History: Hyperlipidemia, Hypertension, Myocardial Infarction ([place]) Additional Past Medical History / Comment(s): renal CA with surgery, parkinson's Last Myocardial Infarction Date:: unknown History of Any Multi-Drug Resistant Organisms: None Reported Past Surgical History: Heart Catheterization With Stent, Orthopedic Surgery Additional Past Surgical History / Comment(s): cryoablation for renal CA, Heart Catheterization 04/23/2021, Past Anesthesia/Blood Transfusion Reactions: No Reported Reaction Date of Last Stent Placement:: 04/23/21 Type of Cardiac Device: Biventricular Pacemaker, Unknown Device Placement Date:: unknown Past Psychological History: Depression, Panic Disorder, Schizophrenia Smoking Status: Never smoker - Past Family History Family Family Medical History: Hyperlipidemia Medications and Allergies Home Medications Medication Instructions Recorded Confirmed Type Omeprazole 40 mg PO AC-BRKFST@0800 12/09/20 12/11/23 History Aspirin 81 mg PO DAILY@0700 07/28/21 12/11/23 History cloZAPine [Clozaril] 300 mg PO HS@1900 02/03/22 12/11/23 History Atorvastatin [Lipitor] 80 mg PO HS@1900 07/04/22 12/11/23 History Clopidogrel [Plavix] 75 mg PO DAILY@0700 07/04/22 12/11/23 History cloZAPine [Clozaril] 200 mg PO BID@0700,1500 07/04/22 12/11/23 History Carbidopa-Levodopa 25-100 mg 1 tab PO QID@07,,,05/31/23 12/11/23 History [Sinemet 25-100 mg] Tamsulosin [Flomax] 0.4 mg PO HS@1900 05/31/23 12/11/23 History Sennosides/Docusate Sodium [Senna 1 tab PO TID PRN 06/14/23 12/11/23 History Plus 8.6-50 mg Tablet] Lidocaine 5% Patch [Lidoderm 5% 1 patch TRANSDERM DAILY PRN 09/27/23 12/11/23 History Patch] Acetaminophen Tab [Tylenol] 1,000 mg PO BID PRN 11/18/23 12/11/23 History Metoprolol Succinate (ER) [Toprol 50 mg PO DAILY@0800 11/18/23 12/11/23 History XL] Sulfamethox-Tmp 800-160Mg [Bactrim 1 tab PO Q12HR #8 tab 12/09/23 12/11/23 Rx DS 800-160 mg] Sodium Chloride Tab 1 gm PO DAILY #7 tablet 12/12/23 Rx Allergies Allergy/AdvReac Type Severity Reaction Status Date / Time No Known Allergies Allergy Verified 12/20/23 19:45 Physical Exam Vitals: Vital Signs Temp Pulse Resp BP Pulse Ox 12/21/23 03:10 66 18 144/96 98 12/20/23 19:41 97.8 F 84 17 153/87 99 Intake and Output 12/20/23 12/20/23 12/21/23 14:59 22:59 06:59 Other: Weight 90.718 kg Results CBC & Chem 7: 05/26/24 20:33 12/20/23 20:33 Labs: Abnormal Lab Results - Last 24 Hours (Table) 12/20/23 12/20/23 12/20/23 Range/Units 20:33 20:33 21:25 WBC 10.9 H (3.8-10.6) k/uL RBC 3.85 L (4.30-5.90) m/uL Hgb 11.3 L (13.0-17.5) gm/dL Hct 32.4 L (39.0-53.0) % RDW 15.6 H (11.5-15.5) % Neutrophils # 8.7 H (1.3-7.7) k/uL Sodium 127 L (137-145) mmol/L Chloride 96 L (98-107) mmol/L Glucose 114 H (74-99) mg/dL Plasma Lactic Acid Rene 0.6 L (0.7-2.0) mmol/L Total Protein 5.6 L (6.3-8.2) g/dL Assessment and Plan Assessment: 68-year-old male with Parkinson disease, schizophrenia, coming in for evaluation of aggressive behavior at the facility patient admits that he was doing that again patient had discussed case with ED doctor and accepted the admission for infectious workup to rule out any underlying infection that might affect patient mental status with anticipated length of stay less than 2 midnights Acute metabolic encephalopathy rule out any underlying metabolic derangements or acute infectious process Chronic hyponatremia with sodium of 127 Chest x-ray showing right perihilar infiltrate suspicious for pneumonia Follow-up cultures Patient started on Rocephin 2 g IV piggyback daily and azithromycin 500 mg p.o. daily Acute respiratory viral panel negative for COVID influenza and RSV Urinalysis pending White count 10.9 hemoglobin 11.3 patient denies any GI bleeding Renal function otherwise unremarkable BUN 15 creatinine 0.86 Liver enzymes unremarkable Parkinson disease Continue carbidopa History of coronary artery disease Continue with aspirin Plavix metoprolol, atorvastatin BPH continue Flomax Full code DVT prophylaxis heparin subcu 3 times daily GI prophylaxis Protonix 40 mg p.o. daily
[2023-12-21] MEDS: AZITHROMYCIN 500 MG in SODIUM CHLORIDE 0.9% 250 ML IVPB STA (04:19)
[2023-12-21] MEDS: cloZAPine 100 MG TAB PO SCH ×2 (07:34→19:50)
[2023-12-21] MEDS: CLOPIDOGREL 75 MG TAB PO SCH (07:34)
[2023-12-21] MEDS: CARBIDOPA-LEVODOPA 25-100 MG 1 EACH TAB PO SCH (07:34)
[2023-12-21] MEDS: METOPROLOL SUCCINATE (ER) 50 MG TAB.ER.24H PO SCH (07:34)
[2023-12-21] MEDS: ASPIRIN 81 MG PO SCH (07:34)
[2023-12-21] MEDS: PANTOPRAZOLE 40 MG TABLET PO SCH (07:34)
[2023-12-21] MEDS: SODIUM CHLORIDE TAB 1 GM TAB PO SCH (08:01)
[2023-12-21 10:52] LABS: Urine Alcohol Negative (Negative); Urine Barbiturate Negative (Negative); Urine Cocaine Negative (Negative); Urine Methadone Negative (Negative); Urine Opiates Negative (Negative); Urine Phencyclidine Negative (Negative)
--- NOTE | 2023-12-21 16:15 | P.PN ---
Subjective Progress Note Date: 12/21/23 Hospital course: Patient is a 68-year-old male with a past medical history of CAD with previous stenting, hypertension, hyperlipidemia, chronic hyponatremia, Parkinson's disease with cognitive impairment, schizophrenia, depression, and panic disorder. He presented to the emergency department on 12/[facility]/2023 from his [facility] secondary to reports of aggressive behaviors. On arrival to our facility, patient underwent evaluation. Vital signs upon arrival show blood pressure 157/96, heart rate 75, respiratory rate 20, temp 97.8 F, and SpO2 of 96% on room air. Labs were completed and reviewed. CBC showing mild leukocytosis with WBC count of 10.9 and stable normocytic anemia with hemoglobin of 11.3. BMP showing acute on chronic hyponatremia with sodium of 126 and hypochloremia with chloride of 96. Blood glucose was 114. Lactic acid was 0.6. Liver profile unremarkable. Procalcitonin was 0.02. Urinalysis negative for infection. Urine drug screen negative. Influenza A, influenza B, RSV, and COVID PCR were negative. Urine Legionella negative. Chest x-ray showing a subtle increase lung markings in right perihilar region unable to rule out pneumonia. Patient admitted under our services at this time. With consultation to psychiatry to evaluate for reported aggressive behaviors. Since admission to the hospital, patient has remained at baseline mentation, pleasant and cooperative with staff denying having any complaints or concerns. Physical exam: Patient seen and fully evaluated at bedside. He is alert to person, place, and situation. Slightly confused to time. Patient denies having any pain or complaints at this time. Denies having any headache, lightheadedness, dizziness, sore throat, cough, congestion, chest pain, palpitations, shortness of breath, abdominal pain, nausea, vomiting, or experiencing any numbness/tingling/weakness in his extremities. Patient pleasant and cooperative throughout entire assessment. Vital signs reviewed and stable. General: Nontoxic, no distress and appears stated age. Derm: Skin warm and dry, normal coloration for ethnicity. Head: Atraumatic, normocephalic and symmetric. Eyes: EOMs intact, no lid lag, and anicteric sclera Mouth: no lip lesions, mucus membranes moist Cardiovascular: regular rate and rhythm with normal S1S2, no murmur, positive posterior tibial pulses bilaterally, and cap refill < 2 seconds. Lungs: Respirations even, regular, and unlabored on room air. Lungs CTA bilaterally, no rhonchi, no rales, no wheezing, and no accessory muscle usage. Abdominal: soft, nontender to palpation, no guarding, no appreciable o rganomegaly Ext: ROM intact. No gross muscle atrophy, no edema, no contractures. Neuro: Speech clear, face symmetrical and CN II-XII grossly intact with no noted focal neuro deficits. Psych: Alert and oriented to person, place, and situation but confused to time. Appropriate and pleasant affect. Assessment and Plan of Care: Aggressive behaviors. Patient with history of Parkinson's disease with cognitive impairment and schizophrenia along with panic disorder. He was [facility] the emergency department from [facility] secondary to reports of aggressive behaviors. Patient currently on carbidopa levodopa 25-100 mg 4 times daily, Klonopin 0.5 mg twice daily and clozapine 200 mg twice daily and 300 mg at bedtime. Patient has been pleasant and cooperative since admission to hospital. We will continue with current medication regimen pending further recommendations from psychiatry team. Acute on chronic hyponatremia. Sodium 127, patient to continue sodium chloride tablets 1 g daily and was started on gentle IV fluid hydration with 0.9% normal saline at 50 cc/h. Will recheck sodium levels with a.m. labs. Abnormal findings on chest x-ray. Chest x-ray showing subtle increased lung markings in right perihilar region unable to rule out developing pneumonia. Patient asymptomatic of any respiratory complaints. He has remained afebrile since admission. Influenza A, influenza B, COVID, and RSV were negative. Urine Legionella negative. Procalcitonin negative at 0.02. Patient received a single dose of azithromycin and Rocephin in the emergency department. No need for further antibiotics at this time. Parkinson's disease with cognitive impairment. Patient to continue daily medication regimen with carbidopa levodopa 25-100 mg tablets 4 times daily. Schizophrenia. Patient to continue daily medication regimen with Klonopin 0.5 mg twice daily and clozapine 200 mg twice daily and 300 mg at bedtime. Panic disorder. Patient to continue daily medication regimen with clozapine 200 mg twice daily and 300 mg at bedtime. Will hold Klonopin secondary to reports of altered mental status. History of CAD with previous stenting and biventricular pacemaker placement. Continue daily medication regimen with aspirin 81 mg daily, atorvastatin 80 mg nightly, Plavix 75 mg daily and metoprolol 50 mg daily. Hypertension. Continue daily medication regimen with metoprolol 50 mg daily. Hyperlipidemia. Continue daily medication regimen with atorvastatin 80 mg nightly. BPH. Continue Flomax 0.4 mg nightly. Data and Imaging reviewed: Chest x-ray showing subtle increased lung markings in right perihilar region unable to rule out developing pneumonia. -Influenza A, influenza B, COVID, and RSV were negative. Urine Legionella negative. Procalcitonin negative at 0.02. -CBC showing mild leukocytosis with WBC count of 10.9 and stable normocytic anemia with hemoglobin of 11.3. BMP showing acute on chronic hyponatremia with sodium of 126 and hypochloremia with chloride of 96. Blood glucose was 114. Lactic acid was 0.6. Liver profile unremarkable. -Urinalysis negative for infection. Urine drug screen negative. -Vital signs reviewed. Blood pressure 114/72, heart rate 73, respiratory rate 16, temp 98.5 F, and SpO2 of 97% on room air. CODE STATUS: Full code DVT prophylaxis: Lovenox Anticipated discharge date: Likely tomorrow morning, awaiting evaluation from psychiatry. Anticipated discharge place: Return to [facility] Patient was seen independently by Nurse Practitioner. This document was prepared using [employer] dictation software. Please allow for errors in quality control inspector heading while rare they do occur. Wilfredo Kothari NP rendered care for this patient independently, reviewed the findings and plan as documented in the note above. I did not physically speak with or examine the patient on this date. Objective - Vital Signs Vital signs: Vital Signs Temp 98.5 F 12/21/23 07:30 Pulse 73 12/21/23 07:30 Resp 16 12/21/23 07:30 BP 114/72 12/21/23 07:30 Pulse Ox 97 12/21/23 07:30 FiO2 Intake & Output 12/20/23 12/21/23 12/21/23 18:59 06:59 18:59 Weight 90.718 kg - Labs CBC & Chem 7: 12/22/23 06:00 12/22/23 06:00 Labs: Abnormal Lab Results - Last 24 Hours (Table) 12/20/23 12/20/23 12/20/23 Range/Units 20:33 20:33 21:25 WBC 10.9 H (3.8-10.6) k/uL RBC 3.85 L (4.30-5.90) m/uL Hgb 11.3 L (13.0-17.5) gm/dL Hct 32.4 L (39.0-53.0) % RDW 15.6 H (11.5-15.5) % Neutrophils # 8.7 H (1.3-7.7) k/uL Sodium 127 L (137-145) mmol/L Chloride 96 L (98-107) mmol/L Glucose 114 H (74-99) mg/dL Plasma Lactic Acid Rene 0.6 L (0.7-2.0) mmol/L Total Protein 5.6 L (6.3-8.2) g/dL
[2023-12-21] MEDS: TAMSULOSIN 0.4 MG CAP.ER.24H PO SCH (19:11)
[2023-12-21] MEDS: ATORVASTATIN 80 MG TAB PO SCH (19:11)
[2023-12-21] MEDS: ACETAMINOPHEN TAB 500 MG TAB PO PRN (19:15)
[2023-12-22] MEDS: ENOXAPARIN 40 MG/0.4 ML SYRINGE SQ SCH (08:32)
[2023-12-22 08:44] LABS: HCT 34.6 % (39.6-50.0); HGB 11.7 g/dL (13.0-17.0); MCH 28.5 pg (27.0-32.0); MCHC 33.8 g/dL (32.0-37.0); MCV 84.2 FL (80.0-97.0); Mean Platelet Volume 10.6 FL (9.5-12.2); NRBC Per 100 WBC 0 X 10*3/uL (0.00-0.01); Platelet Count 301 X 10*3/uL (140-440); RBC 4.11 X 10*6/uL (4.40-5.60); RDW 16.8 % (11.5-14.5); WBC 7.29 X 10*3/uL (4.50-10.00)
[2023-12-22] MEDS ORDERED: AZITHROMYCIN 500 MG TAB PO SCH (09:00)
[2023-12-22 09:08] LABS: ALT 11 U/L (10-49); AST 12 U/L (14-35); Albumin 4.2 g/dL (3.8-4.9); Alkaline Phosphatase 77 U/L (41-126); BUN/Creat Ratio 11.44 Ratio (12.00-20.00); Blood Urea Nitrogen 10.3 mg/dL (9.0-27.0); Calcium 8.7 mg/dL (8.7-10.3); Carbon Dioxide 24.9 mmol/L (21.6-31.8); Chloride 102 mmol/L (96-109); Globulin 1.5 g/dL (1.6-3.3); Glucose 99 mg/dL (70-110); Magnesium 2.3 mg/dL (1.5-2.4); Potassium 4.2 mmol/L (3.5-5.5); Sodium 137 mmol/L (135-145); Total Bilirubin 0.4 mg/dL (0.3-1.2); Total Protein 5.7 g/dL (6.2-8.2)
--- NOTE | 2023-12-22 13:48 | P.DS ---
Providers Date of admission: 12/21/23 00:27 Expected date of discharge: 12/22/23 Attending physician: Qiana Best MD Consults: 12/21/23 01:12 Consult Physician Urgent Consulting Provider: Onofre Elizondo Consult Reason/Comments: Aggressive behavior Do you want consulting provider notified?: Already Contacted Primary care physician: [facility] Hospital Course: Discharge Diagnosis: Aggressive behaviors. Patient with history of Parkinson's disease with cognitive impairment and schizophrenia along with panic disorder. He was [facility] secondary to reports of aggressive behaviors. Patient currently on carbidopa levodopa 25-100 mg 4 times daily, Klonopin 0.5 mg twice daily and clozapine 200 mg twice daily and 300 mg at bedtime. Patient has been pleasant and cooperative since admission to hospital. Patient has had no episodes of outburst, or aggressive/violent behaviors. At this time patient being discharged back to [facility]. He was sent with prescription for Haldol 2 mg twice daily to be given as needed for acute psychosis/aggressive behaviors in addition to his daily scheduled medication regimen. Acute on chronic hyponatremia. Patient was started on sodium chloride tablets 1 g daily and had full resolution of hyponatremia. Patient being discharged home with sodium chloride tablets and to have repeat BMP in 1 week with results to be sent to PCP for follow-up and management. Abnormal findings on chest x-ray. Chest x-ray showing subtle increased lung markings in right perihilar region unable to rule out developing pneumonia. Patient asymptomatic of any respiratory complaints. He has remained afebrile since admission. Influenza A, influenza B, COVID, and RSV were negative. Urine Legionella negative. Procalcitonin negative at 0.02. WBC count of 7.29. Patient received a single dose of azithromycin and Rocephin in the emergency department. No evidence of acute infection at this time, no need for further antibiotics. Parkinson's disease with cognitive impairment. Patient to continue daily medication regimen with carbidopa levodopa 25-100 mg tablets 4 times daily. Schizophrenia. Patient to continue daily medication regimen with Klonopin 0.5 mg twice daily and clozapine 200 mg twice daily and 300 mg at bedtime. Panic disorder. Patient to continue daily medication regimen with clozapine 200 mg twice daily and 300 mg at bedtime. History of CAD with previous stenting and biventricular pacemaker placement. Continue daily medication regimen with aspirin 81 mg daily, atorvastatin 80 mg nightly, Plavix 75 mg daily and metoprolol 50 mg daily. Hypertension. Continue daily medication regimen with metoprolol 50 mg daily. Hyperlipidemia. Continue daily medication regimen with atorvastatin 80 mg nightly. BPH. Continue Flomax 0.4 mg nightly. Hospital course: Patient is a 68-year-old male with a past medical history of CAD with previous stenting, hypertension, hyperlipidemia, chronic hyponatremia, Parkinson's disease with cognitive impairment, schizophrenia, depression, and panic disorder. He presented to the emergency department on 12/20/2023 from his [facility] secondary to reports of aggressive behaviors. On arrival to our facility, patient underwent evaluation. Vital signs upon arrival show blood pressure 157/96, heart rate 75, respiratory rate 20, temp 97.8 F, and SpO2 of 96% on room air. Labs were completed and reviewed. CBC showing mild leukocytosis with WBC count of 10.9 and stable normocytic anemia with hemoglobin of 11.3. BMP showing acute on chronic hyponatremia with sodium of 126 and hypochloremia with chloride of 96. Blood glucose was 114. Lactic acid was 0.6. Liver profile unremarkable. Procalcitonin was 0.02. Urinalysis negative for infection. Urine drug screen negative. Influenza A, influenza B, RSV, and COVID PCR were negative. Urine Legionella negative. Chest x-ray showing a subtle increase lung markings in right perihilar region unable to rule out pneumonia. Patient admitted under our services at this time. With consultation to psychiatry to evaluate for reported aggressive behaviors. Patient has remained pleasant and cooperative since admission to hospital. He has had no episodes of outbursts, or aggressive/violent behaviors. At this time patient being discharged back to [facility]. He was sent with prescription for Haldol 2 mg twice daily to be given as needed for acute psychosis/aggressive behaviors in addition to his daily scheduled medication regimen. Recommend outpatient follow-up with PCP in 1 to 2 days. Physical exam: Vital signs reviewed and stable. General: Nontoxic, no distress and appears stated age. Derm: Skin warm and dry, normal coloration for ethnicity. Head: Atraumatic, normocephalic and symmetric. Eyes: EOMs intact, no lid lag, and anicteric sclera Mouth: no lip lesions, mucus membranes moist Cardiovascular: regular rate and rhythm with normal S1S2, no murmur, positive posterior tibial pulses bilaterally, and cap refill < 2 seconds. Lungs: Respirations even, regular, and unlabored on room air. Lungs CTA bilaterally, no rhonchi, no rales, no wheezing, and no accessory muscle usage. Abdominal: soft, nontender to palpation, no guarding, no appreciable organomegaly Ext: ROM intact. No gross muscle atrophy, no edema, no contractures. Neuro: Speech clear, face symmetrical and CN II-XII grossly intact with no noted focal neuro deficits. Psych: Alert and oriented to person, place, and situation but confused to time. Appropriate and pleasant affect. A total of 31 minutes of time were spent preparing this complex discharge summ ketty. Pt was discharged on 12/22/2023 at 1:33 PM. Patient was seen independently by Nurse Practitioner. This document was prepared using [employer] dictation software. Please allow for errors in pheresis nurse while rare they do occur. Wilfredo Kothari CONSERVATION ENFORCEMENT OFFICER rendered care for this patient independently, reviewed the findings and plan as documented in the note above. I did not physically speak with or examine the patient on this date. Patient Condition at Discharge: Stable Plan - Discharge Summary New Discharge Prescriptions: New haloperidoL [Haldol] 2 mg PO BID PRN #20 tablet PRN Reason: Agitation Or Acute Psychosis Sodium Chloride Tab 1 gm PO DAILY 30 Days #30 tab Continue Omeprazole 40 mg PO AC-BRKFST@0800 cloZAPine [Clozaril] 300 mg PO HS@1900 Carbidopa-Levodopa 25-100 mg [Sinemet 25-100 mg] 1 tab PO QID@07,11,15,19 Sennosides/Docusate Sodium [Senna Plus 8.6-50 mg Tablet] 1 tab PO TID PRN PRN Reason: Constipation Acetaminophen Tab [Tylenol] 1,000 mg PO BID PRN PRN Reason: Fever And/ Or Pain Metoprolol Succinate (ER) [Toprol XL] 50 mg PO DAILY@0800 Aspirin 81 mg PO DAILY@0700 cloZAPine [Clozaril] 200 mg PO BID@0700,1500 Clopidogrel [Plavix] 75 mg PO DAILY@0700 Atorvastatin [Lipitor] 80 mg PO HS@1900 Tamsulosin [Flomax] 0.4 mg PO HS@1900 Lidocaine 5% Patch [Lidoderm 5% Patch] 1 patch TRANSDERM DAILY PRN PRN Reason: Pain Discharge Medication List Omeprazole 40 mg PO AC-BRKFST@0800 12/09/20 [History] Aspirin 81 mg PO DAILY@0700 07/28/21 [History] cloZAPine [Clozaril] 300 mg PO HS@1900 02/03/22 [History] Atorvastatin [Lipitor] 80 mg PO HS@1900 07/04/22 [History] Clopidogrel [Plavix] 75 mg PO DAILY@0700 07/04/22 [History] cloZAPine [Clozaril] 200 mg PO BID@0700,1500 07/04/22 [History] Carbidopa-Levodopa 25-100 mg [Sinemet 25-100 mg] 1 tab PO QID@07,11,,19 05/31/23 [History] Tamsulosin [Flomax] 0.4 mg PO HS@1900 05/31/23 [History] Sennosides/Docusate Sodium [Senna Plus 8.6-50 mg Tablet] 1 tab PO TID PRN 06/14/23 [History] Lidocaine 5% Patch [Lidoderm 5% Patch] 1 patch TRANSDERM DAILY PRN 09/27/23 [History] Acetaminophen Tab [Tylenol] 1,000 mg PO BID PRN 11/18/23 [History] Metoprolol Succinate (ER) [Toprol XL] 50 mg PO DAILY@0800 11/18/23 [History] Sodium Chloride Tab 1 gm PO DAILY 30 Days #30 tab 12/22/23 [Rx] haloperidoL [Haldol] 2 mg PO BID PRN #20 tablet 12/22/23 [Rx] Follow up Appointment(s)/Referral(s): [facility],Clinic [Primary Care Provider] - 1-2 days Ambulatory/Diagnostic Orders: Basic Metabolic Panel [LAB.AMB] Time Frame: 3 Days, Location: None Selected Patient Instructions/Handouts: Parkinson Disease (DC), Brief Psychotic Disorder (DC) Activity/Diet/Wound Care/Special Instructions: Patient is cleared to return to [facility]. Activity: As tolerated. Take breaks as needed. Diet: Regular diet Special Instructions: Take all of your medications as directed and remember to keep all of your doctor's appointments and follow-up as needed. Mr. Russell has been started on Haldol 2 mg as needed for acute psychosis or agitation/aggressive behaviors. Thank you for allowing us to participate in your care, it was truly a pleasure having you for our patient!!! Discharge Disposition: TRANSFER TO SNF/ECF
[2023-12-22 14:42] VITALS: BP 123/83; PULSE 72; RESP 17; TEMP 97.8
== END 2023-12-22 15:51 ==
LOC: EC 19:30 → 6NMEDSUR 12-21 00:27 → 1SOBS 12-22 06:08
PROVIDERS: ADMIT Internal Medicine; ATTEND Internal Medicine
DX: F20.9 Schizophrenia, unspecified (principal); G20.A1 Parkinson's disease without dyskinesia, without mention of fluctuations; F41.0 Panic disorder [episodic paroxysmal anxiety]; E87.1 Hypo-osmolality and hyponatremia; I10 Essential (primary) hypertension; E78.5 Hyperlipidemia, unspecified; N40.0 Benign prostatic hyperplasia without lower urinary tract symptoms; Z95.5 Presence of coronary angioplasty implant and graft; Z95.0 Presence of cardiac pacemaker; Z87.440 Personal history of urinary (tract) infections; Z85.528 Personal history of other malignant neoplasm of kidney; Z79.899 Other long term (current) drug therapy; Z79.82 Long term (current) use of aspirin; Z79.02 Long term (current) use of antithrombotics/antiplatelets
CPT/HCPCS: 96365; 96366; 96367; 96372; 82075; 99285; 36415; 83930; 80053 ×2; 87449; 83605; 83735; 85025; 85027; 81003; 83935; 87040; 80306; 84145; 87636; 71046; G0378 ×2; J0456; J0696; J1650; S0136 ×2

== ENCOUNTER 2023-12-24 12:15 | Inpatient (IN) | payer MEDICARE, OTHER ==
[2023-12-24 13:07] LABS: Anisocytosis Slight; Basophils % (A) 0 %; Eosinophils # (A) 0.1 k/uL (0-0.7); Eosinophils % (A) 1 %; HCT 38.2 % (39.0-53.0); HGB 12.4 gm/dL (13.0-17.5); Lymphocytes # (A) 1.8 k/uL (1.0-4.8); Lymphocytes % (A) 19 %; MCH 27.8 pg (25.0-35.0); MCHC 32.4 g/dL (31.0-37.0); MCV 85.9 fL (80.0-100.0); Mean Platelet Volume 8.6; Monocytes # (A) 0.7 k/uL (0-1.0); Monocytes % (A) 8 %; Neutrophils # (A) 6.5 k/uL (1.3-7.7); Neutrophils % (A) 70 %; Platelet Count 285 k/uL (150-450); RBC 4.45 m/uL (4.30-5.90); RDW 16.1 % (11.5-15.5); WBC 9.3 k/uL (3.8-10.6)
[2023-12-24 13:09] LABS: Potassium 4.4 mmol/L (3.5-5.1)
--- NOTE | 2023-12-24 13:09 | ED ---
General Adult HPI - General Chief complaint: Weakness Stated complaint: Weakness Time Seen by Provider: 12/24/23 12:28 Source: patient, family Mode of arrival: wheelchair Limitations: no limitations - History of Present Illness Initial comments: Dictation was produced using [email or web address] dictation software. please excuse any grammatical, word or spelling errors. Chief Complaint: 68-year-old male with multiple comorbidities presents to the emergency department History of Present Illness: Patient 68-year-old male with multiple comorbidities including schizophrenia, dyslipidemia hypertension. Patient also has Parkinson's dementia. Patient presents from [facility] where he was found to be weak and lethargic. Is just discharged from the hospital 2 days ago. Apparently patient had low blood pressures recently had his metoprolol medications decreased by half by his lollypop machine operator. Patient states he feels really weak. He has no pain complaints. The ROS documented in this emergency department record has been reviewed and confirmed by me. Those systems with pertinent positive or negative responses have been documented in the HPI. All other systems are other negative and/or noncontributory. - Related Data Home Medications Medication Instructions Recorded Confirmed Omeprazole 40 mg PO AC-BRKFST@0800 12/09/20 12/21/23 Aspirin 81 mg PO DAILY@0700 07/28/21 12/21/23 cloZAPine [Clozaril] 300 mg PO HS@1900 02/03/22 12/21/23 Atorvastatin [Lipitor] 80 mg PO HS@1900 07/04/22 12/21/23 Clopidogrel [Plavix] 75 mg PO DAILY@0700 07/04/22 12/21/23 cloZAPine [Clozaril] 200 mg PO BID@0700,1500 07/04/22 12/21/23 Carbidopa-Levodopa 25-100 mg 1 tab PO QID@07,11,15,19 05/31/23 12/21/23 [Sinemet 25-100 mg] Tamsulosin [Flomax] 0.4 mg PO HS@1900 05/31/23 12/21/23 Sennosides/Docusate Sodium [Senna 1 tab PO TID PRN 06/14/23 12/21/23 Plus 8.6-50 mg Tablet] Lidocaine 5% Patch [Lidoderm 5% 1 patch TRANSDERM DAILY PRN 09/27/23 12/21/23 Patch] Acetaminophen Tab [Tylenol] 1,000 mg PO BID PRN 11/18/23 12/21/23 Metoprolol Succinate (ER) [Toprol 50 mg PO DAILY@0800 11/18/23 12/21/23 XL] Previous Rx's Medication Instructions Recorded Sodium Chloride Tab 1 gm PO DAILY 30 Days #30 tab 12/22/23 haloperidoL [Haldol] 2 mg PO BID PRN #20 tablet 12/22/23 Allergies Allergy/AdvReac Type Severity Reaction Status Date / Time No Known Allergies Allergy Verified 12/24/23 14:44 Review of Systems ROS Statement: Those systems with pertinent positive or pertinent negative responses have been documented in the HPI. ROS Other: All systems not noted in ROS Statement are negative. Past Medical History Past Medical History: Hyperlipidemia, Hypertension, Myocardial Infarction (MS) Additional Past Medical History / Comment(s): renal CA with surgery, parkinson's Last Myocardial Infarction Date:: unknown History of Any Multi-Drug Resistant Organisms: None Reported Past Surgical History: Heart Catheterization With Stent, Orthopedic Surgery Additional Past Surgical History / Comment(s): cryoablation for renal CA, Heart Catheterization 04/23/2021, Past Anesthesia/Blood Transfusion Reactions: No Reported Reaction Date of Last Stent Placement:: 04/23/21 Type of Cardiac Device: Biventricular Pacemaker, Unknown Device Placement Date:: unknown Past Psychological History: Depression, Panic Disorder, Schizophrenia Smoking Status: Never smoker Past Alcohol Use History: None Reported Past Drug Use History: None Reported - Past Family History Family Family Medical History: Hyperlipidemia General Exam - General Exam Comments Initial Comments: PHYSICAL EXAM: General Impression: Alert and oriented x3, not in acute distress HEENT: Normocephalic atraumatic, extra-ocular movements intact, pupils equal and reactive to light bilaterally, dry mucous membranes Cardiovascular: Heart regular rate and rhythm Chest: Able to complete full sentences, no retractions, no tachypnea Abdomen: abdomen soft, non-tender, non-distended, no organomegaly Musculoskeletal: Pulses present and equal in all extremities, no peripheral edema Motor: no focal deficits noted Neurological: CN II-XII grossly intact, no focal motor or sensory deficits noted Skin: Intact with no visualized rashes Psych: Normal affect and mood Limitations: no limitations Course Vital Signs 12/24/23 12/24/23 12:17 13:36 Temperature 98.4 F Pulse Rate 77 63 Respiratory 20 18 Rate Blood Pressure 104/70 128/82 O2 Sat by Pulse 100 100 Oximetry EKG Findings - EKG Comments: EKG Findings:: My EKG interpretation: Ventricular rate 75, sinus rhythm,. 149, cures 90, QTc 408. No IA prolongation, no QTC prolongation, no ST or T-wave changes noted. EKG compared to December 10, 2023 showing no changes. Overall, this EKG is unremarkable Medical Decision Making - Medical Decision Making Was pt. sent in by a medical professional or institution (, [facility], [facility], urgent care, hospital, or intermediate...) When possible be specific @ -No Did you speak to anyone other than the patient for history (EMS, parent, family, police, friend...)? What history was obtained from this source @ -Some history obtained from sister at the bedside Did you review nursing and triage notes (agree or disagree)? Why? @ -I reviewed and agree with nursing and triage notes Were old charts reviewed (outside hosp., previous admission, EMS record, old EKG, old radiological studies, urgent care reports/EKG's, intermediate records)? Report findings @ -No old charts were reviewed Differential Diagnosis (chest pain, altered mental status, abdominal pain women, abdominal pain men, vaginal bleeding, musculoskeletal, weakness, fever, dyspnea, syncope, headache, dizziness, GI bleed, back pain, seizure, CVA, palpatations, mental health)? @ -Differential Weakness: Hypoglycemia, shock, sepsis, hyponatremia, anemia, infection, MS, ETOH, adverse medicine reaction, overdose, stroke, this is not meant to be an all-inclusive list. EKG interpreted by me (3pts min.). @ -None done X-rays interpreted by me (1pt min.). @ -None done CT interpreted by me (1pt min.). @ -None done U/S interpreted by me (1pt. min.). @ -None done What testing was considered but not performed or refused? (CT, X-rays, U/S, labs)? Why? @ -None What meds were considered but not given or refused? Why? @ -None Did you discuss the management of the patient with other professionals (professionals i.e. , [facility], [facility], lab, RT, psych nurse, social media marketing manager, cold reduction roller, teacher, correctional officer, casework manager)? Give summary @ -Case discussed with hospitalist for admission Was smoking cessation discussed for >3mins.? @ -No Was critical care preformed (if so, how long)? @ -No Were there social determinants of health that impacted care today? How? (Homelessness, low income, unemployed, alcoholism, drug addiction, transport ation, low edu. Level, literacy, decrease access to med. care, snf, rehab)? @ -No Was there de-escalation of care discussed even if they declined (Discuss DNR or withdrawal of care, Hospice)? DNR status @ -No What co-morbidities impacted this encounter? (DM, HTN, Smoking, COPD, CAD, Cancer, CVA, ARF, Chemo, Hep., AIDS, mental health diagnosis, sleep apnea, morbid obesity)? @ -None Was patient admitted / discharged? Hospital course, mention meds given and route, prescriptions, significant lab abnormalities, going to OR and other pertinent info. @ -68-year-old male presents emergency department for lethargy and weakness. He had blood pressures measured at [facility] found to be hypotensive 88/46. Vital signs upon arrival shows blood pressure of 104/70. Patient is lechuga ashen however his vitals improve while in the emergency department. Is unclear if this has something to do with medications that he is currently taking. Laboratory evaluation is unremarkable. Patient's blood pressure improved to 120/82. He still appears to be symptomatic. Patient will be admitted observati on for hypotension. Undiagnosed new problem with uncertain prognosis? @ -No Drug Therapy requiring intensive monitoring for toxicity (Heparin, Nitro, Insulin, Cardizem)? @ -No Were any procedures done? @ -No Diagnosis/symptom? Acute, or Chronic, or Acute on Chronic? Uncomplicated (without systemic symptoms) or Complicated (systemic symptoms)? @ -G hypotension Side effects of treatment? @ -No Exacerbation, Progression, or Severe Exacerbation? @ -No Poses a threat to life or bodily function? How? (Chest pain, USA, MS, pneumonia, PE, COPD, DKA, ARF, appy, cholecystitis, CVA, Diverticulitis, Homicidal, Suicidal, threat to staff... and all critical care pts) @ -yes - Lab Data Result diagrams: 12/24/23 12:45 12/24/23 12:45 Lab Results 12/24/23 12/24/23 Range/Units 12:45 12:45 WBC 9.3 (3.8-10.6) k/uL RBC 4.45 (4.30-5.90) m/uL Hgb 12.4 L (13.0-17.5) gm/dL Hct 38.2 L (39.0-53.0) % MCV 85.9 (80.0-100.0) fL MCH 27.8 (25.0-35.0) pg MCHC 32.4 (31.0-37.0) g/dL RDW 16.1 H (11.5-15.5) % Plt Count 285 (150-450) k/uL MPV 8.6 Neutrophils % 70 % Lymphocytes % 19 % Monocytes % 8 % Eosinophils % 1 % Basophils % 0 % Neutrophils # 6.5 (1.3-7.7) k/uL Lymphocytes # 1.8 (1.0-4.8) k/uL Monocytes # 0.7 (0-1.0) k/uL Eosinophils # 0.1 (0-0.7) k/uL Basophils # 0.0 (0-0.2) k/uL Anisocytosis Slight Sodium 136 L (137-145) mmol/L Potassium 4.4 (3.5-5.1) mmol/L Chloride 105 (98-107) mmol/L Carbon Dioxide 27 (22-30) mmol/L Anion Gap 4 mmol/L BUN 15 (9-20) mg/dL Creatinine 0.77 (0.66-1.25) mg/dL Est GFR (CKD-EPI)AfAm >90 (>60 ml/min/1.73 sqM) Est GFR (CKD-EPI)NonAf >90 (>60 ml/min/1.73 sqM) Glucose 97 (74-99) mg/dL Calcium 8.9 (8.4-10.2) mg/dL Magnesium 2.1 (1.6-2.3) mg/dL Total Bilirubin 0.5 (0.2-1.3) mg/dL AST 17 (17-59) U/L ALT 6 (4-49) U/L Alkaline Phosphatase 63 (38-126) U/L Total Protein 5.9 L (6.3-8.2) g/dL Albumin 3.9 (3.5-5.0) g/dL Disposition Clinical Impression: Hypotension Disposition: ADMITTED IP TO THIS HOSP Condition: Fair Referrals: [facility],Clinic [Primary Care Provider] - 1-2 days Decision Time: 14:42
[2023-12-24 13:10] LABS: ALT 6 U/L (4-49); AST 17 U/L (17-59); African American GFR (CKD) >90 (>60 ml/min/1.73 sqM); Albumin 3.9 g/dL (3.5-5.0); Alkaline Phosphatase 63 U/L (38-126); Anion Gap 4 mmol/L; Blood Urea Nitrogen 15 mg/dL (9-20); Calcium 8.9 mg/dL (8.4-10.2); Carbon Dioxide 27 mmol/L (22-30); Chloride 105 mmol/L (98-107); Glucose 97 mg/dL (74-99); Magnesium 2.1 mg/dL (1.6-2.3); Non-African American GFR(CKD) >90 (>60 ml/min/1.73 sqM); Sodium 136 mmol/L (137-145); Total Bilirubin 0.5 mg/dL (0.2-1.3); Total Protein 5.9 g/dL (6.3-8.2)
[2023-12-24] MEDS: SODIUM CHLORIDE 0.9% 1,000 ML IV STA (14:53)
[2023-12-24] MEDS ORDERED: NALOXONE 0.4 MG/ML 1 ML VIAL IV PRN (15:24)
[2023-12-24] MEDS ORDERED: SENNOSIDES-DOCUSATE SODIUM 1 EACH TAB PO PRN (17:13)
[2023-12-24] MEDS ORDERED: LIDOCAINE 4% PATCH TOPICAL PRN (17:13)
[2023-12-24] MEDS: MIDODRINE 5 MG TAB PO SCH (17:29)
[2023-12-24] MEDS: SODIUM CHLORIDE 0.9% 1,000 ML IV SCH (17:43)
--- NOTE | 2023-12-24 17:48 | P.HPIM ---
History of Present Illness H&P Date: 12/24/23 Chief Complaint: Hypertension, Weakness and lethargy Patient is a 68-year-old female with a past medical history of chronic hyponatremia, Parkinson disease with cognitive impairment, schizophrenia, panic disorder, history of coronary disease with previous stenting and biventricular pacemaker placement, hypertension, hyperlipidemia who presents from [facility] with was found to be weak and lethargic and hypotensive. His blood pressure at the other hospital was apparently 88/46. Patient was also complaining of lightheadedness and dizziness. Patient was given fluids in our ED and his blood pressure has not improved to 137/89. Patient's only blood pressure medication is metoprolol. Patient currently also somnolent and lethargic. He is on multiple psychiatric medications. Patient admitted to the medicine service. Of note patient was discharged from a facility 2 days ago after he was treated for aggressive behaviors. He was discharged on Haldol as needed. ROS: 10 ROS reviewed and are negative except as noted in HPI Physical exam General: [Alert and oriented, well nourished, no acute distress]. Eye: [PERRL, EOMI, normal conjunctiva]. HENT: [Normocephalic, clear tympanic membranes, normal hearing, moist oral mucosa, no scleral icterus, no sinus tenderness]. Neck: [Supple, non-tender, no carotid bruits, no JVD, no lymphadenopathy]. Lungs: [Clear to auscultation and percussion, non-labored respiration]. Heart: [Normal rate, regular rhythm, no murmur, gallop or edema]. Abdomen: [Soft, non-tender, non-distended, normal bowel sounds, no masses]. Musculoskeletal: [Normal range of motion and strength, no tenderness or swelling]. Skin: [Skin is warm, dry and pink, no rashes or lesions]. Neurologic: [Awake, alert, and oriented X3, CN II-XII intact]. Psychiatric: [Patient is somnolent and lethargic]. Assessment and plan Hypotension likely due to dehydration Will continue with IV fluids normal saline at 75 cc an hour Blood pressure has improved after fluids were given I will decrease his metoprolol to 12.5 mg daily Resume his home dose midodrine 2.5 mg p.o. twice daily Weakness and lethargy Consult PT Will hold off on Klonopin Parkinson's disease with cognitive impairment Continue with carbidopa levodopa 4 times daily Schizophrenia Will continue with clozapine Panic disorder Will hold Klonopin hold due to somnolence and lethargy History of coronary artery disease Pacemaker placement Continue with aspirin statin and Plavix Decrease metoprolol see above Hypertension Patient came in with low blood pressures so I decreased patient's metoprolol Hyperlipidemia Continue with statin BPH Continue Flomax Chronic hyponatremia Continue with salt tabs Sodium 136 DVT prophylaxis: Subcu heparin Past Medical History Past Medical History: Hyperlipidemia, Hypertension, Myocardial Infarction (MT) Additional Past Medical History / Comment(s): renal CA with surgery, parkinson's Last Myocardial Infarction Date:: unknown History of Any Multi-Drug Resistant Organisms: None Reported Past Surgical History: Heart Catheterization With Stent, Orthopedic Surgery Additional Past Surgical History / Comment(s): cryoablation for renal CA, Heart Catheterization 04/23/2021, Past Anesthesia/Blood Transfusion Reactions: No Reported Reaction Date of Last Stent Placement:: 04/23/21 Type of Cardiac Device: Biventricular Pacemaker, Unknown Device Placement Date:: unknown Past Psychological History: Depression, Panic Disorder, Schizophrenia Smoking Status: Never smoker Past Alcohol Use History: None Reported Past Drug Use History: None Reported - Past Family History Family Family Medical History: Hyperlipidemia Medications and Allergies Home Medications Medication Instructions Recorded Confirmed Type Omeprazole 40 mg PO AC-BRKFST@0800 12/09/20 12/24/23 History Aspirin 81 mg PO DAILY@0700 07/28/21 12/24/23 History cloZAPine [Clozaril] 300 mg PO HS@1900 02/03/22 12/24/23 History Atorvastatin [Lipitor] 80 mg PO HS@1900 07/04/22 12/24/23 History Clopidogrel [Plavix] 75 mg PO DAILY@0700 07/04/22 12/24/23 History cloZAPine [Clozaril] 200 mg PO BID@0700,1500 07/04/22 12/24/23 History Carbidopa-Levodopa 25-100 mg 1 tab PO QID@07,11,15,19 05/31/23 12/24/23 History [Sinemet 25-100 mg] Tamsulosin [Flomax] 0.4 mg PO HS@1900 05/31/23 12/24/23 History Sennosides/Docusate Sodium [Senna 1 tab PO TID PRN 06/14/23 12/24/23 History Plus 8.6-50 mg Tablet] Lidocaine 5% Patch [Lidoderm 5% 1 patch TRANSDERM DAILY PRN 09/27/23 12/24/23 History Patch] Acetaminophen Tab [Tylenol] 1,000 mg PO BID PRN MDD 2000 mg 11/18/23 12/24/23 History Metoprolol Succinate (ER) [Toprol 25 mg PO DAILY@0800 11/18/23 12/24/23 History XL] haloperidoL [Haldol] 2 mg PO BID PRN #20 tablet 12/22/23 12/24/23 Rx Midodrine HCl [ProAmantine] 2.5 mg PO BID 12/24/23 12/24/23 History Sodium Chloride Tab 1 gm PO DAILY@0800 12/24/23 12/24/23 History clonazePAM [Klonopin ODT] 0.25 mg PO TID@0700,1500,1900 12/24/23 12/24/23 History Allergies Allergy/AdvReac Type Severity Reaction Status Date / Time No Known Allergies Allergy Verified 12/24/23 14:44 Physical Exam Osteopathic Statement: *. No significant issues noted on an osteopathic structural exam other than those noted in the History and Physical/Consult. Vitals: Vital Signs Temp Pulse Resp BP Pulse Ox 12/24/23 17:09 67 18 137/89 95 12/24/23 13:36 63 18 128/82 100 12/24/23 12:17 98.4 F 77 20 104/70 100 Intake and Output 12/24/23 12/24/23 12/24/23 06:59 14:59 22:59 Other: Weight 89.811 kg Results CBC & Chem 7: 12/24/23 12:45 12/24/23 12:45 Labs: Abnormal Lab Results - Last 24 Hours (Table) 12/24/23 12/24/23 Range/Units 12:45 12:45 Hgb 12.4 L (13.0-17.5) gm/dL Hct 38.2 L (39.0-53.0) % RDW 16.1 H (11.5-15.5) % Sodium 136 L (137-145) mmol/L Total Protein 5.9 L (6.3-8.2) g/dL
[2023-12-24] MEDS: CARBIDOPA-LEVODOPA 25-100 MG 1 EACH TAB PO SCH (18:09)
[2023-12-24] MEDS: TAMSULOSIN 0.4 MG CAP.ER.24H PO SCH (18:09)
[2023-12-24] MEDS: cloZAPine 100 MG TAB PO SCH (18:09)
[2023-12-24] MEDS: ATORVASTATIN 80 MG TAB PO SCH (18:09)
[2023-12-24] MEDS ORDERED: clonazePAM 0.5 MG TAB PO SCH (19:00)
[2023-12-24] MEDS: HEPARIN SODIUM,PORCINE 5,000 UNIT/ML 1 ML VIAL SQ SCH (20:53)
[2023-12-24] MEDS ORDERED: ZOLPIDEM 5 MG TAB PO PRN (21:33)
[2023-12-25] MEDS: CLOPIDOGREL 75 MG TAB PO SCH (06:09)
[2023-12-25] MEDS: ASPIRIN 81 MG PO SCH (06:09)
[2023-12-25] MEDS: cloZAPine 100 MG TAB PO SCH (06:10)
[2023-12-25 07:59] VITALS: TEMP 97.4
[2023-12-25] MEDS: METOPROLOL SUCCINATE (ER) 25 MG TAB.ER.24H PO SCH (08:34)
[2023-12-25] MEDS: PANTOPRAZOLE 40 MG TABLET PO SCH (08:34)
[2023-12-25] MEDS: SODIUM CHLORIDE TAB 1 GM TAB PO SCH (08:35)
[2023-12-25] MEDS: ACETAMINOPHEN TAB 500 MG TAB PO PRN (08:40)
[2023-12-25 09:05] LABS: Blood Urea Nitrogen 11.6 mg/dL (9.0-27.0); Calcium 8.5 mg/dL (8.7-10.3); Carbon Dioxide 23.8 mmol/L (21.6-31.8); Chloride 103 mmol/L (96-109); Glucose 89 mg/dL (70-110); Potassium 4.6 mmol/L (3.5-5.5); Sodium 136 mmol/L (135-145)
--- NOTE | 2023-12-25 14:30 | P.DS ---
Providers Date of admission: 12/24/23 15:25 Attending physician: Ivan Bedoya MD Primary care physician: [facility] Hospital Course: Discharge Diagnosis: Hypotension likely due to dehydration Weakness and lethargy likely due to polypharmacy Parkinson's disease with cognitive impairment Schizophrenia Panic disorder History of coronary disease Pacemaker placement Hypertension Hyperlipidemia BPH Chronic hyponatremia Hospital Course: Patient is a 68-year-old female with a past medical history of chronic hyponatremia, Parkinson disease with cognitive impairment, schizophrenia, panic disorder, history of coronary disease with previous stenting and biventricular pacemaker placement, hypertension, hyperlipidemia who presents from [facility] where he was found to be weak and lethargic and hypotensive. His blood pressure at the other hospital was apparently 88/46. Patient was also complaining of lightheadedness and dizziness. Patient was given fluids in our ED and his blood pressure has improved to 137/89. Patient's only blood pressure medication is metoprolol. Patient currently also somnolent and lethargic. He is on multiple psychiatric medications. Patient admitted to the medicine service. Of note patient was discharged from a facility 2 days ago after he was treated for aggressive behaviors. He was discharged on Haldol as needed. Patient was given fluids overnight. His blood pressure remained normotensive. His metoprolol was decreased to 12.5 mg daily. I also held his Klonopin. The following day patient was much more awake and alert. He worked with physical therapy and was deemed safe to return back to his facility. On discharge I will change his Klonopin to 0.25 mg twice daily as needed for anxiety. Patient was previously on a standing dose of Klonopin 0.25 mg 3 times daily. I also sent a new prescription for the low-dose of metoprolol. Patient seen and examined at bedside on 12/25/2023.[] Vital signs reviewed and stable. 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 Patient Condition at Discharge: Fair Plan - Discharge Summary New Discharge Prescriptions: New Metoprolol Succinate (ER) [Toprol XL] 12.5 mg PO DAILY 30 Days #15 tab Continue Omeprazole 40 mg PO AC-BRKFST@0800 cloZAPine [Clozaril] 300 mg PO HS@1900 Carbidopa-Levodopa 25-100 mg [Sinemet 25-100 mg] 1 tab PO QID@,,, Sennosides/Docusate Sodium [Senna Plus 8.6-50 mg Tablet] 1 tab PO TID PRN PRN Reason: Constipation Acetaminophen Tab [Tylenol] 1,000 mg PO BID PRN MDD 2000 mg PRN Reason: Fever And/ Or Pain haloperidoL [Haldol] 2 mg PO BID PRN #20 tablet PRN Reason: Agitation Or Acute Psychosis Aspirin 81 mg PO DAILY@0700 cloZAPine [Clozaril] 200 mg PO BID@0700,1500 Clopidogrel [Plavix] 75 mg PO DAILY@0700 Atorvastatin [Lipitor] 80 mg PO HS@1900 Tamsulosin [Flomax] 0.4 mg PO HS@1900 Lidocaine 5% Patch [Lidoderm 5% Patch] 1 patch TRANSDERM DAILY PRN PRN Reason: Pain Sodium Chloride Tab 1 gm PO DAILY@0800 Midodrine HCl [ProAmantine] 2.5 mg PO BID Changed clonazePAM [Klonopin ODT] 0.25 mg PO BID PRN #0 PRN Reason: Anxiety Discontinued Metoprolol Succinate (ER) [Toprol XL] 25 mg PO DAILY@0800 Discharge Medication List Omeprazole 40 mg PO AC-BRKFST@0800 12/09/20 [History] Aspirin 81 mg PO DAILY@0700 07/28/21 [History] cloZAPine [Clozaril] 300 mg PO HS@1900 02/03/22 [History] Atorvastatin [Lipitor] 80 mg PO HS@1900 07/04/22 [History] Clopidogrel [Plavix] 75 mg PO DAILY@0700 07/04/22 [History] cloZAPine [Clozaril] 200 mg PO BID@0700,1500 07/04/22 [History] Carbidopa-Levodopa 25-100 mg [Sinemet 25-100 mg] 1 tab PO QID@,,,05/31/23 [History] Tamsulosin [Flomax] 0.4 mg PO HS@1900 05/31/23 [History] Sennosides/Docusate Sodium [Senna Plus 8.6-50 mg Tablet] 1 tab PO TID PRN 06/14/23 [History] Lidocaine 5% Patch [Lidoderm 5% Patch] 1 patch TRANSDERM DAILY PRN 09/27/23 [History] Acetaminophen Tab [Tylenol] 1,000 mg PO BID PRN MDD 2000 mg 11/18/23 [History] haloperidoL [Haldol] 2 mg PO BID PRN #20 tablet 12/22/23 [Rx] Midodrine HCl [ProAmantine] 2.5 mg PO BID 12/24/23 [History] Sodium Chloride Tab 1 gm PO DAILY@0800 12/24/23 [History] Metoprolol Succinate (ER) [Toprol XL] 12.5 mg PO DAILY 30 Days #15 tab 12/25/23 [Rx] clonazePAM [Klonopin ODT] 0.25 mg PO BID PRN #0 12/25/23 [Rx] Follow up Appointment(s)/Referral(s): [facility],Clinic [Primary Care Provider] - 1-2 days Discharge Disposition: HOME WITH HOME HEALTH SERVICES
[2023-12-25 15:57] VITALS: BP 151/90; PULSE 74; RESP 22
== END 2023-12-25 15:58 | disposition home health service (06) | DRG 641 ==
LOC: EC 12:15 → 6NMEDSUR 15:25
PROVIDERS: ADMIT Internal Medicine; ATTEND Internal Medicine
DX: E86.0 Dehydration (principal); F02.84 Dementia in other diseases classified elsewhere, unspecified severity, with anxiety; I95.89 Other hypotension; E87.1 Hypo-osmolality and hyponatremia; R53.1 Weakness; E78.5 Hyperlipidemia, unspecified; T50.915A Adverse effect of multiple unspecified drugs, medicaments and biological substances, initial encounter; F20.9 Schizophrenia, unspecified; F32.A Depression, unspecified; F41.0 Panic disorder [episodic paroxysmal anxiety]; G20.A1 Parkinson's disease without dyskinesia, without mention of fluctuations; I10 Essential (primary) hypertension; I25.10 Atherosclerotic heart disease of native coronary artery without angina pectoris; I25.2 Old myocardial infarction; N40.0 Benign prostatic hyperplasia without lower urinary tract symptoms; Z79.02 Long term (current) use of antithrombotics/antiplatelets; Z79.82 Long term (current) use of aspirin; Z79.899 Other long term (current) drug therapy; Z85.528 Personal history of other malignant neoplasm of kidney; Z95.0 Presence of cardiac pacemaker; X58.XXXA Exposure to other specified factors, initial encounter
CPT/HCPCS: 36415; 80048; 80053; 83735; 85025; 93005; 96360; 96361; 96372; 99285

== ENCOUNTER 2023-12-31 11:40 | Emergency (ER) | payer MEDICARE ==
[2023-12-31 12:13] VITALS: PULSE 96; TEMP 97.7
[2023-12-31] MEDS: SODIUM CHLORIDE 0.9% 500 ML 500 ML IV STA (12:44)
[2023-12-31 12:53] LABS: Basophils % (A) 1 %; Eosinophils % (A) 0 %; HCT 36.3 % (39.0-53.0); HGB 11.6 gm/dL (13.0-17.5); Lymphocytes # (A) 1.2 k/uL (1.0-4.8); Lymphocytes % (A) 16 %; MCH 27.2 pg (25.0-35.0); MCHC 31.8 g/dL (31.0-37.0); MCV 85.5 fL (80.0-100.0); Mean Platelet Volume 7.8; Monocytes # (A) 0.6 k/uL (0-1.0); Monocytes % (A) 7 %; Neutrophils # (A) 5.7 k/uL (1.3-7.7); Neutrophils % (A) 75 %; Platelet Count 284 k/uL (150-450); RBC 4.24 m/uL (4.30-5.90); RDW 15.8 % (11.5-15.5); WBC 7.6 k/uL (3.8-10.6)
--- NOTE | 2023-12-31 12:57 | ED ---
Recheck HPI - General Chief Complaint: Recheck/Abnormal Lab/Rx Stated Complaint: Low sodium Time Seen by Provider: 12/31/23 12:25 Source: patient, RN notes reviewed, old records reviewed Mode of arrival: ambulatory Limitations: no limitations - History of Present Illness Initial Comments: This is a 68-year-old male to the ER for evaluation today. Patient presents today for evaluation regards to low sodium. Patient had lab testing done yesterday was told he has low sodium and sent to ER for evaluation. Patient sodium was 129 per patient he is on sodium pills no complaints MD Complaint: abnormal lab -: unknown Returns Today for: Called Because of Abnormal Lab/Test Symptoms Since Prior Visit: no new symptoms Context: called for abnormal lab result Associated Symptoms: none - Related Data Home Medications Medication Instructions Recorded Confirmed Omeprazole 40 mg PO AC-BRKFST@0800 12/09/20 12/31/23 Aspirin 81 mg PO DAILY@0700 07/28/21 12/31/23 cloZAPine [Clozaril] 300 mg PO HS@1900 02/03/22 12/31/23 Atorvastatin [Lipitor] 80 mg PO HS@1900 07/04/22 12/31/23 Clopidogrel [Plavix] 75 mg PO DAILY@0700 07/04/22 12/31/23 cloZAPine [Clozaril] 200 mg PO BID@0700,1500 07/04/22 12/31/23 Carbidopa-Levodopa 25-100 mg 1 tab PO QID@07,11,15,19 05/31/23 12/31/23 [Sinemet 25-100 mg] Tamsulosin [Flomax] 0.4 mg PO HS@1900 05/31/23 12/31/23 Sennosides/Docusate Sodium [Senna 1 tab PO TID PRN 06/14/23 12/31/23 Plus 8.6-50 mg Tablet] Lidocaine 5% Patch [Lidoderm 5% 1 patch TRANSDERM DAILY PRN 09/27/23 12/31/23 Patch] Acetaminophen Tab [Tylenol] 1,000 mg PO BID PRN MDD 2000 mg 11/18/23 12/31/23 Midodrine HCl [ProAmantine] 2.5 mg PO BID@0800,1500 12/24/23 12/31/23 Sodium Chloride Tab 1 gm PO DAILY@0800 12/24/23 12/31/23 Metoprolol Succinate (ER) [Toprol 12.5 mg PO DAILY@0800 12/31/23 12/31/23 XL] clonazePAM [KlonoPIN ODT] 0.25 mg PO TID@0700,1500,1900 12/31/23 12/31/23 Previous Rx's Medication Instructions Recorded haloperidoL [Haldol] 2 mg PO BID PRN #20 tablet 12/22/23 Allergies Allergy/AdvReac Type Severity Reaction Status Date / Time No Known Allergies Allergy Verified 12/31/23 13:17 Review of Systems ROS Statement: Those systems with pertinent positive or pertinent negative responses have been documented in the HPI. ROS Other: All systems not noted in ROS Statement are negative. Past Medical History Past Medical History: Hyperlipidemia, Hypertension, Myocardial Infarction (PR) Additional Past Medical History / Comment(s): renal CA with surgery, parkinson's Last Myocardial Infarction Date:: unknown History of Any Multi-Drug Resistant Organisms: None Reported Past Surgical History: Heart Catheterization With Stent, Orthopedic Surgery Additional Past Surgical History / Comment(s): cryoablation for renal CA, Heart Catheterization 04/23/2021, Past Anesthesia/Blood Transfusion Reactions: No Reported Reaction Date of Last Stent Placement:: 04/23/21 Type of Cardiac Device: Biventricular Pacemaker, Unknown Device Placement Date:: unknown Past Psychological History: Depression, Panic Disorder, Schizophrenia Smoking Status: Never smoker Past Alcohol Use History: None Reported Past Drug Use History: None Reported - Past Family History Family Family Medical History: Hyperlipidemia General Exam Limitations: no limitations General appearance: alert, in no apparent distress Head exam: Present: atraumatic, normocephalic, normal inspection Eye exam: Present: normal appearance, PERRL, EOMI. Absent: scleral icterus, conjunctival injection, periorbital swelling ENT exam: Present: normal exam, mucous membranes moist Neck exam: Present: normal inspection. Absent: tenderness, meningismus, lymphadenopathy Respiratory exam: Present: normal lung sounds bilaterally. Absent: respiratory distress, wheezes, rales, rhonchi, stridor Cardiovascular Exam: Present: regular rate, normal rhythm, normal heart sounds. Absent: systolic murmur, diastolic murmur, rubs, gallop, clicks GI/Abdominal exam: Present: soft, normal bowel sounds. Absent: distended, tenderness, guarding, rebound, rigid Extremities exam: Present: normal inspection, full ROM, normal capillary refill. Absent: tenderness, pedal edema, joint swelling, calf tenderness Back exam: Present: normal inspection Neurological exam: Present: alert, oriented X3, CN II-XII intact Psychiatric exam: Present: normal affect, normal mood Skin exam: Present: warm, dry, intact, normal color. Absent: rash Course Vital Signs 12/31/23 12/31/23 12:08 14:06 Temperature 97.7 F Pulse Rate 96 96 Respiratory 18 16 Rate Blood Pressure 107/72 140/85 O2 Sat by Pulse 98 97 Oximetry - Reevaluation(s) Reevaluation #1: 12/31/23 13:17 Records are reviewed Reevaluation #2: Patient has no change in symptoms here in the ER remains asymptomatic Reevaluation #3: Patient informed of results and questions answered Reevaluation #4: Was pt. sent in by a medical professional or institution (, PA, AIRPORT ELECTRICIAN, urgent care, hospital, or senior care...) When possible be specific @ -no Did you speak to anyone other than the patient for history (EMS, parent, family, police, friend...)? What history was obtained from this source @ -no Did you review nursing and triage notes (agree or disagree)? Why? @ -agree Are old charts reviewed (outside hosp., previous admission, EMS record, old EKG, old radiological studies, urgent care reports/EKG's, senior care records)? Report findings @ -yes Differential Diagnosis (chest pain, altered mental status, abdominal pain women, abdominal pain men, vaginal bleeding, weakness, fever, dyspnea, syncope, hea dache, dizziness, GI bleed, back pain, seizure, CVA, palpatations, mental health, musculoskeletal)? @ -prior EKG interpreted by me (3pts min.). @ -yes X-rays interpreted by me (1pt min.). @ -no CT interpreted by me (1pt min.). @ -no U/S interpreted by me (1pt. min.). @ -no What testing was considered but not performed or refused? (CT, X-rays, U/S, labs)? Why? @ -none What meds were considered but not given or refused? Why? @ -none Did you discuss the management of the patient with other professionals (professionals i.e. , PA, AIRPORT ELECTRICIAN, lab, RT, psych nurse, director of social services, french polisher, teacher, tactical intelligence officer, social work case manager)? Give summary @ -no Was smoking cessation discussed for >3mins.? @ -no Were there social determinants of health that impacted care today? How? (Homelessness, low income, unemployed, alcoholism, drug addiction, transportation, low edu. Level, literacy, decrease access to med. care, long-term, rehab)? @ -none Was there de-escalation of care discussed even if they declined (Discuss DNR or withdrawal of care, Hospice)? DNR status @ -no What co-morbidities impacted this encounter? (DM, HTN, Smoking, COPD, CAD, Cancer, CVA, ARF, Chemo, Hep., AIDS, mental health diagnosis, sleep apnea, morbid obesity)? @ -none Was patient admitted / discharged? Hospital course, mention meds given and route, prescriptions, significant lab abnormalities, going to OR and other pertinent info. @ - 68 male to ER for evaluation of weakness and believes he has low sodium. Patient sodium is abnormal and low. No treatment currently necessary though patient is otherwise asymptomatic and can be discharged home Discharge Was critical care preformed (if so, how long)? @ -no Undiagnosed new problem with uncertain prognosis? @ -no Drug Therapy requiring intensive monitoring for toxicity (Heparin, Nitro, Insulin, Cardizem)? @ -no Were any procedures done? @ -no Diagnosis/symptom? @ -Hyponatremia Acute, or Chronic, or Acute on Chronic? @ -Acute Uncomplicated (without systemic symptoms) or Complicated (systemic symptoms)? @ -Complicated Side effects of treatment? @ -no Exacerbation, Progression, or Severe Exacerbation? @ -exacerbation Poses a threat to life or bodily function? How? (Chest pain, USA, PR, pneumonia, PE, COPD, DKA, ARF, appy, cholecystitis, CVA, Diverticulitis, Homicidal, Suicidal, threat to staff... and all critical care pts) @ -yes with abnormal lab testing Reevaluation #5: Differential Weakness: Hypoglycemia, shock, sepsis, hyponatremia, anemia, infection, PR, ETOH, adverse medicine reaction, overdose, stroke, this is not meant to be an all-inclusive list. Medical Decision Making - Medical Decision Making 68 male to ER for evaluation of weakness and believes he has low sodium. Patient sodium is abnormal and low. No treatment currently necessary though patient is otherwise asymptomatic and can be discharged home - Lab Data Result diagrams: 12/31/23 12:40 12/31/23 12:40 Lab Results 12/31/23 12/31/23 12/31/23 Range/Units 12:40 12:40 12:40 WBC 7.6 (3.8-10.6) k/uL RBC 4.24 L (4.30-5.90) m/uL Hgb 11.6 L (13.0-17.5) gm/dL Hct 36.3 L (39.0-53.0) % MCV 85.5 (80.0-100.0) fL MCH 27.2 (25.0-35.0) pg MCHC 31.8 (31.0-37.0) g/dL RDW 15.8 H (11.5-15.5) % Plt Count 284 (150-450) k/uL MPV 7.8 Neutrophils % 75 % Lymphocytes % 16 % Monocytes % 7 % Eosinophils % 0 % Basophils % 1 % Neutrophils # 5.7 (1.3-7.7) k/uL Lymphocytes # 1.2 (1.0-4.8) k/uL Monocytes # 0.6 (0-1.0) k/uL Eosinophils # 0.0 (0-0.7) k/uL Basophils # 0.0 (0-0.2) k/uL PT 10.6 (10.0-12.5) sec INR 1.0 (<1.2) APTT 25.1 (22.0-30.0) sec Sodium 129 L (137-145) mmol/L Potassium 3.8 (3.5-5.1) mmol/L Chloride 99 (98-107) mmol/L Carbon Dioxide 23 (22-30) mmol/L Anion Gap 7 mmol/L BUN 11 (9-20) mg/dL Creatinine 0.73 (0.66-1.25) mg/dL Est GFR (CKD-EPI)AfAm >90 (>60 ml/min/1.73 sqM) Est GFR (CKD-EPI)NonAf >90 (>60 ml/min/1.73 sqM) Glucose 66 L (74-99) mg/dL Calcium 8.5 (8.4-10.2) mg/dL Phosphorus 3.8 (2.5-4.5) mg/dL Magnesium 1.9 (1.6-2.3) mg/dL Total Bilirubin 0.7 (0.2-1.3) mg/dL AST 21 (17-59) U/L ALT <6 (4-49) U/L Alkaline Phosphatase 80 (38-126) U/L Troponin I (0.000-0.034) ng/mL Total Protein 5.9 L (6.3-8.2) g/dL Albumin 3.9 (3.5-5.0) g/dL 12/31/23 Range/Units 12:40 WBC (3.8-10.6) k/uL RBC (4.30-5.90) m/uL Hgb (13.0-17.5) gm/dL Hct (39.0-53.0) % MCV (80.0-100.0) fL MCH (25.0-35.0) pg MCHC (31.0-37.0) g/dL RDW (11.5-15.5) % Plt Count (150-450) k/uL MPV Neutrophils % % Lymphocytes % % Monocytes % % Eosinophils % % Basophils % % Neutrophils # (1.3-7.7) k/uL Lymphocytes # (1.0-4.8) k/uL Monocytes # (0-1.0) k/uL Eosinophils # (0-0.7) k/uL Basophils # (0-0.2) k/uL PT (10.0-12.5) sec INR (<1.2) APTT (22.0-30.0) sec Sodium (137-145) mmol/L Potassium (3.5-5.1) mmol/L Chloride (98-107) mmol/L Carbon Dioxide (22-30) mmol/L Anion Gap mmol/L BUN (9-20) mg/dL Creatinine (0.66-1.25) mg/dL Est GFR (CKD-EPI)AfAm (>60 ml/min/1.73 sqM) Est GFR (CKD-EPI)NonAf (>60 ml/min/1.73 sqM) Glucose (74-99) mg/dL Calcium (8.4-10.2) mg/dL Phosphorus (2.5-4.5) mg/dL Magnesium (1.6-2.3) mg/dL Total Bilirubin (0.2-1.3) mg/dL AST (17-59) U/L ALT (4-49) U/L Alkaline Phosphatase (38-126) U/L Troponin I <0.012 (0.000-0.034) ng/mL Total Protein (6.3-8.2) g/dL Albumin (3.5-5.0) g/dL - EKG Data -: EKG Interpreted by Me (EKG sinus 77 NV 146 QRS 92 QTc 425) Disposition Clinical Impression: Hyponatremia Disposition: HOME SELF-CARE Condition: Good Instructions (If sedation given, give patient instructions): Hyponatremia (ED) Is patient prescribed a controlled substance at d/c from ED?: No Referrals: [facility],Clinic [Primary Care Provider] - 1-2 days Time of Disposition: 13:50
[2023-12-31 13:07] LABS: Partial Thromboplastin Time 25.1 sec (22.0-30.0); Prothrombin Time 10.6 sec (10.0-12.5)
[2023-12-31 13:09] LABS: ALT <6 U/L (4-49); AST 21 U/L (17-59); African American GFR (CKD) >90 (>60 ml/min/1.73 sqM); Albumin 3.9 g/dL (3.5-5.0); Alkaline Phosphatase 80 U/L (38-126); Anion Gap 7 mmol/L; Blood Urea Nitrogen 11 mg/dL (9-20); Calcium 8.5 mg/dL (8.4-10.2); Carbon Dioxide 23 mmol/L (22-30); Chloride 99 mmol/L (98-107); Glucose 66 mg/dL (74-99); Magnesium 1.9 mg/dL (1.6-2.3); Non-African American GFR(CKD) >90 (>60 ml/min/1.73 sqM); Phosphorus 3.8 mg/dL (2.5-4.5); Potassium 3.8 mmol/L (3.5-5.1); Sodium 129 mmol/L (137-145); Total Bilirubin 0.7 mg/dL (0.2-1.3); Total Protein 5.9 g/dL (6.3-8.2)
[2023-12-31 14:07] VITALS: BP 140/85; RESP 16
== END 2023-12-31 14:07 | disposition home or self-care (01) ==
LOC: EC 11:40
DX: E87.1 Hypo-osmolality and hyponatremia (principal)
CPT/HCPCS: 36415; 80053; 83735; 84100; 84484; 85025; 85610; 85730; 93005; 99283

== ENCOUNTER 2024-01-07 06:16 | Emergency (ER) | payer MEDICARE ==
[2024-01-07 08:39] LABS: ALT 14 U/L (4-49); AST 23 U/L (17-59); African American GFR (CKD) >90 (>60 ml/min/1.73 sqM); Albumin 4.3 g/dL (3.5-5.0); Alkaline Phosphatase 93 U/L (38-126); Anion Gap 7 mmol/L; Blood Urea Nitrogen 8 mg/dL (9-20); Calcium 8.8 mg/dL (8.4-10.2); Carbon Dioxide 26 mmol/L (22-30); Chloride 97 mmol/L (98-107); Glucose 101 mg/dL (74-99); Non-African American GFR(CKD) >90 (>60 ml/min/1.73 sqM); Sodium 130 mmol/L (137-145); Total Bilirubin 0.7 mg/dL (0.2-1.3); Total Protein 6.4 g/dL (6.3-8.2)
[2024-01-07 08:41] LABS: Appearance,Urine Clear (Clear); Bilirubin,Urine Negative (Negative); Blood,Urine Negative (Negative); Color,Urine Colorless; Glucose,Urine (UA) Negative (Negative); Ketones,Urine Negative (Negative); Leukocyte Esterase,Urine Negative (Negative); Nitrite,Urine Negative (Negative); Protein,Urine Negative (Negative); Specific Gravity,Urine 1.005 (1.001-1.035); Urobilinogen,Urine <2.0 mg/dL (<2.0)
[2024-01-07 08:50] LABS: Anisocytosis Slight; Basophils % (A) 0 %; Eosinophils % (A) 0 %; HCT 36.9 % (39.0-53.0); HGB 12.3 gm/dL (13.0-17.5); Lymphocytes # (A) 1.1 k/uL (1.0-4.8); Lymphocytes % (A) 11 %; MCH 28.6 pg (25.0-35.0); MCHC 33.3 g/dL (31.0-37.0); Mean Platelet Volume 8.2; Monocytes # (A) 0.6 k/uL (0-1.0); Monocytes % (A) 6 %; Neutrophils # (A) 8.6 k/uL (1.3-7.7); Neutrophils % (A) 83 %; Platelet Count 288 k/uL (150-450); RBC 4.29 m/uL (4.30-5.90); RDW 16.3 % (11.5-15.5); WBC 10.4 k/uL (3.8-10.6)
--- NOTE | 2024-01-07 09:01 | ED ---
General Adult HPI - General Chief complaint: Anxiety Stated complaint: anxiety Time Seen by Provider: 01/07/24 07:40 Source: patient, EMS, RN notes reviewed, old records reviewed Limitations: no limitations - History of Present Illness Initial comments: Patient is a 68-year-old male who presents emergency department for anxiety and had an episode of paranoia at his home. Wanted to come to the emergency department for evaluation. Currently states his symptoms are pretty much resolved. Is well-known here, and has a history of hyponatremia. Also has a history of recurrent UTIs. Currently has no symptoms at this time. Presents for further evaluation at this time. - Related Data Home Medications Medication Instructions Recorded Confirmed Omeprazole 40 mg PO AC-BRKFST@0800 12/09/20 12/31/23 Aspirin 81 mg PO DAILY@0700 07/28/21 12/31/23 cloZAPine [Clozaril] 300 mg PO HS@1900 02/03/22 12/31/23 Atorvastatin [Lipitor] 80 mg PO HS@1900 07/04/22 12/31/23 Clopidogrel [Plavix] 75 mg PO DAILY@0700 07/04/22 12/31/23 cloZAPine [Clozaril] 200 mg PO BID@0700,1500 07/04/22 12/31/23 Carbidopa-Levodopa 25-100 mg 1 tab PO QID@07,11,15,05/31/23 12/31/23 [Sinemet 25-100 mg] Tamsulosin [Flomax] 0.4 mg PO HS@1900 05/31/23 12/31/23 Sennosides/Docusate Sodium [Senna 1 tab PO TID PRN 06/14/23 12/31/23 Plus 8.6-50 mg Tablet] Lidocaine 5% Patch [Lidoderm 5% 1 patch TRANSDERM DAILY PRN 09/27/23 12/31/23 Patch] Acetaminophen Tab [Tylenol] 1,000 mg PO BID PRN MDD 2000 mg 11/18/23 12/31/23 Midodrine HCl [ProAmantine] 2.5 mg PO BID@0800,1500 12/24/23 12/31/23 Sodium Chloride Tab 1 gm PO DAILY@0800 12/24/23 12/31/23 Metoprolol Succinate (ER) [Toprol 12.5 mg PO DAILY@0800 12/31/23 12/31/23 XL] clonazePAM [Klonopin ODT] 0.25 mg PO TID@0700,1500,1900 12/31/23 12/31/23 Previous Rx's Medication Instructions Recorded haloperidoL [Haldol] 2 mg PO BID PRN #20 tablet 12/22/23 Allergies Allergy/AdvReac Type Severity Reaction Status Date / Time No Known Allergies Allergy Verified 12/31/23 13:17 Review of Systems ROS Statement: Those systems with pertinent positive or pertinent negative responses have been documented in the HPI. Review of Systems: CONST: Denies fever EYES: Denies blurry vision ENT: Denies nasal congestion C/V: Denies Chest pain RESP: Denies shortness of breath GI: Denies abdominal pain : Denies dysuria SKIN: Denies rash. MSK: Denies joint pain. NEURO: Denies headache ROS Other: All systems not noted in ROS Statement are negative. Past Medical History Past Medical History: Hyperlipidemia, Hypertension, Myocardial Infarction ([place]) Additional Past Medical History / Comment(s): renal CA with surgery, parkinson's Last Myocardial Infarction Date:: unknown History of Any Multi-Drug Resistant Organisms: None Reported Past Surgical History: Heart Catheterization With Stent, Orthopedic Surgery Additional Past Surgical History / Comment(s): cryoablation for renal CA, Heart Catheterization 04/23/2021, Past Anesthesia/Blood Transfusion Reactions: No Reported Reaction Date of Last Stent Placement:: 04/23/21 Type of Cardiac Device: Biventricular Pacemaker, Unknown Device Placement Date:: unknown Past Psychological History: Depression, Panic Disorder, Schizophrenia Smoking Status: Never smoker Past Alcohol Use History: None Reported Past Drug Use History: None Reported - Past Family History Family Family Medical History: Hyperlipidemia General Exam - General Exam Comments Initial Comments: General: Appears in no acute distress. HEAD: Normal with no signs of head trauma. EYES: EOMI ENT: Hearing grossly intact, normal oropharynx. RESPIRATORY: Clear breath sounds bilaterally. No wheezes, rales, or rhonchi. C/V: Regular rate and rhythm. S1 and S2 auscultated, peripheral pulses 2+ and intact throughout ABD: Abd is soft, nontender, nondistended EXT: no obvious deformity SKIN: No rashes or lesions observed on exposed skin. NEURO: Alert and oriented x 4. Limitations: no limitations Course Vital Signs 01/07/24 06:18 Temperature 97.8 F Pulse Rate 95 Respiratory 18 Rate Blood Pressure 145/84 O2 Sat by Pulse 96 Oximetry Medical Decision Making - Medical Decision Making Was pt. sent in by a medical professional or institution (LEANNE Glaser, PUBLIC HEALTH PROGRAM MANAGER, urgent care, hospital, or detention...) When possible be specific @ -No Did you speak to anyone other than the patient for history (EMS, parent, family, police, friend...)? What history was obtained from this source @ -No Did you review nursing and triage notes (agree or disagree)? Why? @ -I reviewed and agree with nursing and triage notes Were old charts reviewed (outside hosp., previous admission, EMS record, old EKG, old radiological studies, urgent care reports/EKG's, detention records)? Report findings @ -Old charts reviewed from recent visit which revealed mild hyponatremia of 129. This visit was from last week on December 30 when he was evaluated to check his sodium level. Differential Diagnosis (chest pain, altered mental status, abdominal pain women, abdominal pain men, vaginal bleeding, weakness, fever, dyspnea, syncope, headache, dizziness, GI bleed, back pain, seizure, CVA, palpatations, mental health, musculoskeletal)? @ -Anxiety, hyponatremia, UTI. This list is not all inclusive. EKG interpreted by me (3pts min.). @ -As above X-rays interpreted by me (1pt min.). @ -None done CT interpreted by me (1pt min.). @ -None done U/S interpreted by me (1pt. min.). @ -None done What testing was considered but not performed or refused? (CT, X-rays, U/S, labs)? Why? @ -None What meds were considered but not given or refused? Why? @ -None Did you discuss the management of the patient with other professionals (professionals i.e. LEANNE Glaser, PUBLIC HEALTH PROGRAM MANAGER, lab, RT, psych nurse, social work case manager, summer camp counselor, teacher, budget officer, pillowcase folder)? Give summary @ -No Was smoking cessation discussed for >3mins.? @ -No Was critical care preformed (if so, how long)? @ -No Were there social determinants of health that impacted care today? How? (Homelessness, low income, unemployed, alcoholism, drug addiction, transportation, low edu. Level, literacy, decrease access to med. care, prison, rehab)? @ -No Was there de-escalation of care discussed even if they declined (Discuss DNR or withdrawal of care, Hospice)? DNR status @ -No What co-morbidities impacted this encounter? (DM, HTN, Smoking, COPD, CAD, Cancer, CVA, ARF, Chemo, Hep., AIDS, mental health diagnosis, sleep apnea, morbid obesity)? @ -None Was patient admitted / discharged? Hospital course, mention meds given and route, prescriptions, significant lab abnormalities, going to OR and other pertinent info. @ -Patient presents for evaluation after an episode of anxiety and mild paranoia at his detention, which is resolved. He will be given a small dose of Ativan. We will obtain basic labs to evaluate sodium as well as for UTI. Patient was in agreement this plan. Screen EKG will also be obtained. Vital signs within acceptable limits. EKG shows no signs of acute ischemia. Patient's hyponatremia is actually improved as it is now 130. Patient is on sodium chloride tablets at home. Remainder the patient's labs unremarkable including a normal urinalysis.Patient will be given a fluid bolus here in the department for the hyponatremia. Patient updated. He will be discharged back to his facility at this time. Patient was in agreement this plan. Strict return precautions discussed. I instructed the patient to follow up with their PCP in the next 1-3 days. I explained that the patient should return to the emergency department if they experience any worsening symptoms. Strict return precautions were discussed with the patient. The patient expressed understanding of these instructions. I answered all questions that the patient had. The patient was discharged home in good condition with their prescriptions and follow up information. Undiagnosed new problem with uncertain prognosis? @ -No Drug Therapy requiring intensive monitoring for toxicity (Heparin, Nitro, Insulin, Cardizem)? @ -No Were any procedures done? @ -No Diagnosis/symptom? @ -Anxiety Acute, or Chronic, or Acute on Chronic? @ -Acute Uncomplicated (without systemic symptoms) or Complicated (systemic symptoms)? @ -Uncomplicated Side effects of treatment? @ -No Exacerbation, Progression, or Severe Exacerbation? @ -No Poses a threat to life or bodily function? How? (Chest pain, [place], [place], pneumonia, PE, COPD, DKA, ARF, appy, cholecystitis, CVA, Diverticulitis, Homicidal, Suicidal, threat to staff... and all critical care pts) @ -No Diagnosis/symptom? @ -Hyponatremia Acute, or Chronic, or Acute on Chronic? @ -Acute on chronic Uncomplicated (without systemic symptoms) or Complicated (systemic symptoms)? @ -Uncomplicated Side effects of treatment? @ -None Exacerbation, Progression, or Severe Exacerbation] @ -No Poses a threat to life or bodily function? @ -Unlikely, as he is on therapy - Lab Data Result diagrams: 01/07/24 08:05 01/07/24 08:05 Lab Results 01/07/24 01/07/24 01/07/24 Range/Units 08:05 08:05 08:10 WBC 10.4 (3.8-10.6) k/uL RBC 4.29 L (4.30-5.90) m/uL Hgb 12.3 L (13.0-17.5) gm/dL Hct 36.9 L (39.0-53.0) % MCV 86.0 (80.0-100.0) fL MCH 28.6 (25.0-35.0) pg MCHC 33.3 (31.0-37.0) g/dL RDW 16.3 H (11.5-15.5) % Plt Count 288 (150-450) k/uL MPV 8.2 Neutrophils % 83 % Lymphocytes % 11 % Monocytes % 6 % Eosinophils % 0 % Basophils % 0 % Neutrophils # 8.6 H (1.3-7.7) k/uL Lymphocytes # 1.1 (1.0-4.8) k/uL Monocytes # 0.6 (0-1.0) k/uL Eosinophils # 0.0 (0-0.7) k/uL Basophils # 0.0 (0-0.2) k/uL Anisocytosis Slight Sodium 130 L (137-145) mmol/L Potassium 4.0 (3.5-5.1) mmol/L Chloride 97 L (98-107) mmol/L Carbon Dioxide 26 (22-30) mmol/L Anion Gap 7 mmol/L BUN 8 L (9-20) mg/dL Creatinine 0.82 (0.66-1.25) mg/dL Est GFR (CKD-EPI)AfAm >90 (>60 ml/min/1.73 sqM) Est GFR (CKD-EPI)NonAf >90 (>60 ml/min/1.73 sqM) Glucose 101 H (74-99) mg/dL Calcium 8.8 (8.4-10.2) mg/dL Total Bilirubin 0.7 (0.2-1.3) mg/dL AST 23 (17-59) U/L ALT 14 (4-49) U/L Alkaline Phosphatase 93 (38-126) U/L Total Protein 6.4 (6.3-8.2) g/dL Albumin 4.3 (3.5-5.0) g/dL Urine Color Colorless Urine Appearance Clear (Clear) Urine pH 7.0 (5.0-8.0) Ur Specific [place] 1.005 (1.001-1.035) Urine Protein Negative (Negative) Urine Glucose (UA) Negative (Negative) Urine Ketones Negative (Negative) Urine Blood Negative (Negative) Urine Nitrite Negative (Negative) Urine Bilirubin Negative (Negative) Urine Urobilinogen <2.0 (<2.0) mg/dL Ur Leukocyte Esterase Negative (Negative) - EKG Data -: EKG Interpreted by Me EKG Comments: 12-lead Electrocardiogram Interpretation Note EKG was reviewed and interpreted by myself. 12-lead ECG performed at 0754 is interpreted by me as revealing normal sinus rhythm at a rate of 90 beats per minute. Reading is normal. TX interval is 141 ms, QRS is 89 ms, QTc is 408 ms.. There were no ST or T wave abnormalities to suggest myocardial ischemia or injury. R wave progression across the precordium was satisfactory. By my interpretation this EKG is non-diagnostic for acute ischemia. Disposition Clinical Impression: Hyponatremia, Anxiety Disposition: HOME SELF-CARE Condition: Good Instructions (If sedation given, give patient instructions): Generalized Anxiety Disorder (ED) Is patient prescribed a controlled substance at d/c from ED?: No Referrals: [facility],Clinic [Primary Care Provider] - 1-2 days Time of Disposition: 09:05
[2024-01-07] MEDS: SODIUM CHLORIDE 0.9% 500 ML 500 ML IV STA (09:22)
[2024-01-07] MEDS: LORazepam 1 MG TAB PO STA (09:24)
[2024-01-07 10:20] VITALS: BP 167/78; PULSE 90; RESP 16; TEMP 98.5
== END 2024-01-07 10:20 | disposition home or self-care (01) ==
LOC: EC 06:16
DX: E87.1 Hypo-osmolality and hyponatremia (principal); F41.9 Anxiety disorder, unspecified
CPT/HCPCS: 36415; 80053; 81003; 85025; 93005; 96360; 99284

== ENCOUNTER 2024-01-10 12:56 | Emergency (ER) | payer MEDICARE ==
[2024-01-10 13:19] VITALS: BP 133/83; PULSE 88; RESP 18; TEMP 98
--- NOTE | 2024-01-10 14:31 | ED ---
General Adult HPI - General Source: patient, RN notes reviewed, old records reviewed Mode of arrival: EMS Limitations: no limitations <Willam Lowry - Last Filed: 01/10/24 16:05> <Willam Sahni - Last Filed: 01/19/24 00:43> - General Chief complaint: Anxiety Stated complaint: Anxiety, Hypertension Time Seen by Provider: 01/10/24 14:00 - History of Present Illness Initial comments: This is a 68-year-old male who has a significant past medical history states that he is on Haldol and Klonopin. Patient states he does not know exactly what the mental health history has but he knows that every single day he has a time in the afternoon where he starts yelling and screaming because he is very paranoid and he does not know what else to do. Patient states this has been ongoing for about a year. Patient states today he just felt out of sorts and he got nervous he did not want to do so he had the staff there at his facility called the ambulance. Patient is a very poor historian. Patient denies any physical complaints at all. Patient states he has in the past had some low sodium. Patient states he just feels like he needs some help because he does not know why God keeps making him feel terrible every afternoon and become paranoid. Patient denies any suicidal ideations. (Willam Lowry) - Related Data Home Medications Medication Instructions Recorded Confirmed Omeprazole 40 mg PO AC-BRKFST@0800 12/09/20 01/13/24 Aspirin 81 mg PO DAILY@0700 07/28/21 01/13/24 cloZAPine [Clozaril] 300 mg PO HS@1900 02/03/22 01/13/24 Atorvastatin [Lipitor] 80 mg PO HS@1900 07/04/22 01/13/24 Clopidogrel [Plavix] 75 mg PO DAILY@0700 07/04/22 01/13/24 cloZAPine [Clozaril] 200 mg PO BID@0700,1500 07/04/22 01/13/24 Carbidopa-Levodopa 25-100 mg 1 tab PO QID@07,11,15,19 05/31/23 01/13/24 [Sinemet 25-100 mg] Tamsulosin [Flomax] 0.4 mg PO HS@1900 05/31/23 01/13/24 Lidocaine 5% Patch [Lidoderm 5% 1 patch TRANSDERM DAILY PRN 09/27/23 01/13/24 Patch] Acetaminophen Tab [Tylenol] 1,000 mg PO BID PRN MDD 2000 mg 11/18/23 01/13/24 Midodrine HCl [ProAmantine] 2.5 mg PO BID@0800,1500 12/24/23 01/13/24 Sodium Chloride Tab 1 gm PO DAILY@0800 12/24/23 01/13/24 Metoprolol Succinate (ER) [Toprol 12.5 mg PO DAILY@0800 12/31/23 01/13/24 XL] clonazePAM [KlonoPIN ODT] 0.25 mg PO TID@0700,1500,1900 12/31/23 01/13/24 Cyanocobalamin (Vitamin B-12) 1,000 mcg PO DAILY@0800 01/13/24 01/13/24 [Vitamin B-12] Docusate [Colace] 100 mg PO TID PRN 01/13/24 01/13/24 Ergocalciferol (Vitamin D2) 1,250 mcg PO WE 01/13/24 01/13/24 [Drisdol (50,000 Iu)] Multivitamins, Thera [Multivitamin 1 tab PO DAILY@0801/13/24 01/13/24 (formulary)] Previous Rx's Medication Instructions Recorded haloperidoL [Haldol] 2 mg PO BID PRN #20 tablet 12/22/23 Allergies Allergy/AdvReac Type Severity Reaction Status Date / Time No Known Allergies Allergy Verified 01/13/24 10:50 Review of Systems ROS Other: All systems not noted in ROS Statement are negative. <Willam Lowry - Last Filed: 01/10/24 16:05> ROS Other: All systems not noted in ROS Statement are negative. <Willam Sahni - Last Filed: 01/19/24 00:43> ROS Statement: Those systems with pertinent positive or pertinent negative responses have been documented in the HPI. Past Medical History Past Medical History: Hyperlipidemia, Hypertension, Myocardial Infarction ([place]) Additional Past Medical History / Comment(s): renal CA with surgery, parkinson's Last Myocardial Infarction Date:: unknown History of Any Multi-Drug Resistant Organisms: None Reported Past Surgical History: Heart Catheterization With Stent, Orthopedic Surgery Additional Past Surgical History / Comment(s): cryoablation for renal CA, Heart Catheterization 04/23/2021, Past Anesthesia/Blood Transfusion Reactions: No Reported Reaction Date of Last Stent Placement:: 04/23/21 Type of Cardiac Device: Biventricular Pacemaker, Unknown Device Placement Date:: unknown Past Psychological History: Depression, Panic Disorder, Schizophrenia Smoking Status: Never smoker Past Alcohol Use History: None Reported Past Drug Use History: None Reported - Past Family History Family Family Medical History: Hyperlipidemia <Willam Lowry - Last Filed: 01/10/24 16:05> General Exam Limitations: no limitations <Willam Lowry - Last Filed: 01/10/24 16:05> - General Exam Comments Initial Comments: GENERAL: Patient is well-developed and well-nourished. Patient is nontoxic and well- hydrated and is in no acute distress. ENT: Neck is soft and supple. No significant lymphadenopathy is noted. Oropharynx is clear. Moist mucous membranes. Neck has full range of motion without eliciting any pain. EYES: The sclera were anicteric and conjunctiva were pink and moist. Extraocular movements were intact and pupils were equal round and reactive to light. Eyelids were unremarkable. PULMONARY: Unlabored respirations. Good breath sounds bilaterally. No audible rales rhonchi or wheezing was noted. CARDIOVASCULAR: There is a regular rate and rhythm without any murmurs gallops or rubs. ABDOMEN: Soft and nontender with normal bowel sounds. SKIN: Skin is clear with no lesions or rashes and otherwise unremarkable. NEUROLOGIC: Patient is alert and oriented x3. Cranial nerves II through XII are grossly intact. Motor and sensory are also intact. Normal speech, volume and content. Symmetrical smile. MUSCULOSKELETAL: Normal extremities with adequate strength and full range of motion. LYMPHATICS: No significant lymphadenopathy is noted PSYCHIATRIC: Normal psychiatric evaluation. (Willam Lowry) Course Vital Signs 01/10/24 13:17 Temperature 98 F Pulse Rate 88 Respiratory 18 Rate Blood Pressure 133/83 O2 Sat by Pulse 97 Oximetry Medical Decision Making - Lab Data Result diagrams: 01/10/24 14:59 01/10/24 14:59 <Willam Lowry - Last Filed: 01/10/24 16:05> - Lab Data Result diagrams: 01/10/24 14:59 01/10/24 14:59 <Willam Sahni B - Last Filed: 01/19/24 00:43> - Medical Decision Making Was pt. sent in by a medical professional or institution (LEANNE Glaser, VEGETABLE II FARMWORKER, urgent care, hospital, or snf...) When possible be specific @ -[No] Did you speak to anyone other than the patient for history (EMS, parent, family, police, friend...)? What history was obtained from this source @ -[No] Did you review nursing and triage notes (agree or disagree)? Why? @ -[I reviewed and agree with nursing and triage notes] Were old charts reviewed (outside hosp., previous admission, EMS record, old EKG, old radiological studies, urgent care reports/EKG's, snf records)? Report findings @ -[No old charts were reviewed] Differential Diagnosis (chest pain, altered mental status, abdominal pain women, abdominal pain men, vaginal bleeding, weakness, fever, dyspnea, syncope, headache, dizziness, GI bleed, back pain, seizure, CVA, palpatations, mental health, musculoskeletal)? @ -[not applicable] EKG interpreted by me (3pts min.). @ -[As above] X-rays interpreted by me (1pt min.). @ -[None done] CT interpreted by me (1pt min.). @ -[None done] U/S interpreted by me (1pt. min.). @ -[None done] What testing was considered but not performed or refused? (CT, X-rays, U/S, labs)? Why? @ -[None] What meds were considered but not given or refused? Why? @ -[None] Did you discuss the management of the patient with other professionals (pr ofessionals i.e. LEANNE Glaser, VEGETABLE II FARMWORKER, lab, RT, psych nurse, vp digital marketing social media and crm, game room attendant, teacher, electrical engineering drafting officer, rehabilitation case coordinator)? Give summary @ -[No] Was smoking cessation discussed for >3mins.? @ -[No] Was critical care preformed (if so, how long)? @ -[No] Were there social determinants of health that impacted care today? How? (Homelessness, low income, unemployed, alcoholism, drug addiction, transportation, low edu. Level, literacy, decrease access to med. care, [place] [facility], rehab)? @ -[No] Was there de-escalation of care discussed even if they declined (Discuss DNR or withdrawal of care, Hospice)? DNR status @ -[No] What co-morbidities impacted this encounter? (DM, HTN, Smoking, COPD, CAD, Cancer, CVA, ARF, Chemo, Hep., AIDS, mental health diagnosis, sleep apnea, morbid obesity)? @ -[None] Was patient admitted / discharged? Hospital course, mention meds given and route, prescriptions, significant lab abnormalities, going to OR and other pertinent info. @ -Dr. Sahni will be taking over care of this patient at 4 PM. Patient is an extremely poor historian lab work was sent because he did mention something about hyponatremia. Once that is back patient will be evaluated by EPS. (Willam Lowry) 68 male with no organic findings of causes symptoms. Sodium is normal here in the ER are within safe zone. Patient prefers discharge at this time he is not homicidal or suicidal. (Willam Sahni) - Lab Data Lab Results 01/10/24 01/10/24 Range/Units 14:59 14:59 WBC 8.0 (3.8-10.6) k/uL RBC 4.08 L (4.30-5.90) m/uL Hgb 11.3 L (13.0-17.5) gm/dL Hct 35.2 L (39.0-53.0) % MCV 86.3 (80.0-100.0) fL MCH 27.7 (25.0-35.0) pg MCHC 32.1 (31.0-37.0) g/dL RDW 16.0 H (11.5-15.5) % Plt Count 254 (150-450) k/uL MPV 7.5 Neutrophils % 81 % Lymphocytes % 13 % Monocytes % 5 % Eosinophils % 0 % Basophils % 0 % Neutrophils # 6.5 (1.3-7.7) k/uL Lymphocytes # 1.0 (1.0-4.8) k/uL Monocytes # 0.4 (0-1.0) k/uL Eosinophils # 0.0 (0-0.7) k/uL Basophils # 0.0 (0-0.2) k/uL Anisocytosis Slight Sodium 126 L (137-145) mmol/L Potassium 4.3 (3.5-5.1) mmol/L Chloride 97 L (98-107) mmol/L Carbon Dioxide 24 (22-30) mmol/L Anion Gap 5 mmol/L BUN 8 L (9-20) mg/dL Creatinine 0.82 (0.66-1.25) mg/dL Est GFR (CKD-EPI)AfAm >90 (>60 ml/min/1.73 sqM) Est GFR (CKD-EPI)NonAf >90 (>60 ml/min/1.73 sqM) Glucose 108 H (74-99) mg/dL Calcium 8.6 (8.4-10.2) mg/dL Magnesium 1.9 (1.6-2.3) mg/dL Total Bilirubin 0.6 (0.2-1.3) mg/dL AST 20 (17-59) U/L ALT 6 (4-49) U/L Alkaline Phosphatase 85 (38-126) U/L Total Protein 5.7 L (6.3-8.2) g/dL Albumin 3.7 (3.5-5.0) g/dL Disposition <Willam Lowry - Last Filed: 01/10/24 16:05> Is patient prescribed a controlled substance at d/c from ED?: No Time of Disposition: 16:50 <Willam Sahni - Last Filed: 01/19/24 00:43> Clinical Impression: Panic attack, Acute anxiety, Paranoia, Altered mental status, Hyponatremia Disposition: HOME SELF-CARE Condition: Fair Instructions (If sedation given, give patient instructions): Hyponatremia (ED), Generalized Anxiety Disorder (ED) Referrals: [facility],Clinic [Primary Care Provider] - 1-2 days
[2024-01-10 15:22] LABS: Anisocytosis Slight; Basophils % (A) 0 %; Eosinophils % (A) 0 %; HCT 35.2 % (39.0-53.0); HGB 11.3 gm/dL (13.0-17.5); Lymphocytes % (A) 13 %; MCH 27.7 pg (25.0-35.0); MCHC 32.1 g/dL (31.0-37.0); MCV 86.3 fL (80.0-100.0); Mean Platelet Volume 7.5; Monocytes # (A) 0.4 k/uL (0-1.0); Monocytes % (A) 5 %; Neutrophils # (A) 6.5 k/uL (1.3-7.7); Neutrophils % (A) 81 %; Platelet Count 254 k/uL (150-450); RBC 4.08 m/uL (4.30-5.90)
[2024-01-10 15:37] LABS: ALT 6 U/L (4-49); AST 20 U/L (17-59); African American GFR (CKD) >90 (>60 ml/min/1.73 sqM); Albumin 3.7 g/dL (3.5-5.0); Alkaline Phosphatase 85 U/L (38-126); Anion Gap 5 mmol/L; Blood Urea Nitrogen 8 mg/dL (9-20); Calcium 8.6 mg/dL (8.4-10.2); Carbon Dioxide 24 mmol/L (22-30); Chloride 97 mmol/L (98-107); Glucose 108 mg/dL (74-99); Magnesium 1.9 mg/dL (1.6-2.3); Non-African American GFR(CKD) >90 (>60 ml/min/1.73 sqM); Potassium 4.3 mmol/L (3.5-5.1); Sodium 126 mmol/L (137-145); Total Bilirubin 0.6 mg/dL (0.2-1.3); Total Protein 5.7 g/dL (6.3-8.2)
== END 2024-01-10 17:14 | disposition home or self-care (01) ==
LOC: EC 12:56
DX: F41.0 Panic disorder [episodic paroxysmal anxiety] (principal); F22 Delusional disorders; R41.82 Altered mental status, unspecified; E87.1 Hypo-osmolality and hyponatremia
CPT/HCPCS: 36415; 80053; 83735; 85025; 99283

== ENCOUNTER 2024-01-12 18:10 | Observation (INO) | payer OTHER, MEDICARE ==
[2024-01-12 19:31] LABS: Anisocytosis Slight; Basophils % (A) 0 %; Eosinophils % (A) 0 %; HCT 37.6 % (39.0-53.0); Lymphocytes # (A) 1.1 k/uL (1.0-4.8); Lymphocytes % (A) 14 %; MCH 27.2 pg (25.0-35.0); MCHC 31.8 g/dL (31.0-37.0); MCV 85.4 fL (80.0-100.0); Mean Platelet Volume 7.6; Monocytes # (A) 0.5 k/uL (0-1.0); Monocytes % (A) 6 %; Neutrophils # (A) 5.8 k/uL (1.3-7.7); Neutrophils % (A) 78 %; Platelet Count 247 k/uL (150-450); RDW 16.1 % (11.5-15.5); WBC 7.5 k/uL (3.8-10.6)
[2024-01-12 19:39] LABS: Partial Thromboplastin Time 25.3 sec (22.0-30.0); Prothrombin Time 10.7 sec (10.0-12.5)
--- NOTE | 2024-01-12 19:50 | ED ---
Altered Mental Status HPI - General Chief Complaint: Psychiatric Symptoms Stated Complaint: Anger Time Seen by Provider: 01/12/24 18:12 Source: patient, EMS, RN notes reviewed, old records reviewed Mode of arrival: EMS Limitations: no limitations - History of Present Illness Initial Comments: This 68-year-old male to the ER for evaluation of. Patient presents today e for evaluation regards to disorder, patient is from an extended care facility where he is having a difficult time with interacting. Patient seems to have an altered mood at times he wants to kill someone wants to hurt somebody but also is confused with history of low sodium. Patient has having difficulty taking medications as directed MD Complaint: altered mental status, other (Mood disorder) -: unknown Severity: moderate Consistency of Symptoms: getting worse (Has multiple presentations for similar issue) Context: history of similar presentation Treatments Prior to Arrival: other pre-hospital medication (0) - Related Data Home Medications Medication Instructions Recorded Confirmed Omeprazole 40 mg PO AC-BRKFST@0800 12/09/20 01/13/24 Aspirin 81 mg PO DAILY@0700 07/28/21 01/13/24 cloZAPine [Clozaril] 300 mg PO HS@1900 02/03/22 01/13/24 Atorvastatin [Lipitor] 80 mg PO HS@1900 07/04/22 01/13/24 Clopidogrel [Plavix] 75 mg PO DAILY@0700 07/04/22 01/13/24 cloZAPine [Clozaril] 200 mg PO BID@0700,1500 07/04/22 01/13/24 Carbidopa-Levodopa 25-100 mg 1 tab PO QID@07,11,15,19 05/31/23 01/13/24 [Sinemet 25-100 mg] Tamsulosin [Flomax] 0.4 mg PO HS@1900 05/31/23 01/13/24 Lidocaine 5% Patch [Lidoderm 5% 1 patch TRANSDERM DAILY PRN 09/27/23 01/13/24 Patch] Acetaminophen Tab [Tylenol] 1,000 mg PO BID PRN MDD 2000 mg 11/18/23 01/13/24 Midodrine HCl [ProAmantine] 2.5 mg PO BID@0800,1500 12/24/23 01/13/24 Sodium Chloride Tab 1 gm PO DAILY@0800 12/24/23 01/13/24 Metoprolol Succinate (ER) [Toprol 12.5 mg PO DAILY@0800 12/31/23 01/13/24 XL] clonazePAM [KlonoPIN ODT] 0.25 mg PO TID@0700,1500,1900 12/31/23 01/13/24 Cyanocobalamin (Vitamin B-12) 1,000 mcg PO DAILY@0800 01/13/24 01/13/24 [Vitamin B-12] Docusate [Colace] 100 mg PO TID PRN 01/13/24 01/13/24 Ergocalciferol (Vitamin D2) 1,250 mcg PO WE 01/13/24 01/13/24 [Drisdol (50,000 Iu)] Multivitamins, Thera [Multivitamin 1 tab PO DAILY@0800 01/13/24 01/13/24 (formulary)] Previous Rx's Medication Instructions Recorded haloperidoL [Haldol] 2 mg PO BID PRN #20 tablet 12/22/23 Allergies Allergy/AdvReac Type Severity Reaction Status Date / Time No Known Allergies Allergy Verified 01/13/24 10:50 Review of Systems ROS Statement: Those systems with pertinent positive or pertinent negative responses have been documented in the HPI. ROS Other: All systems not noted in ROS Statement are negative. Past Medical History Past Medical History: Hyperlipidemia, Hypertension, Myocardial Infarction (VT) Additional Past Medical History / Comment(s): renal CA with surgery, parkinson's Last Myocardial Infarction Date:: unknown History of Any Multi-Drug Resistant Organisms: None Reported Past Surgical History: Heart Catheterization With Stent, Orthopedic Surgery Additional Past Surgical History / Comment(s): cryoablation for renal CA, Heart Catheterization 04/23/2021, Past Anesthesia/Blood Transfusion Reactions: No Reported Reaction Date of Last Stent Placement:: 04/23/21 Type of Cardiac Device: Biventricular Pacemaker, Unknown Device Placement Date:: unknown Past Psychological History: Depression, Panic Disorder, Schizophrenia Smoking Status: Never smoker Past Alcohol Use History: None Reported Past Drug Use History: None Reported - Past Family History Family Family Medical History: Hyperlipidemia General Exam Limitations: no limitations General appearance: alert, in no apparent distress Head exam: Present: atraumatic, normocephalic, normal inspection Eye exam: Present: normal appearance, PERRL, EOMI. Absent: scleral icterus, conjunctival injection, periorbital swelling ENT exam: Present: normal exam, mucous membranes moist Neck exam: Present: normal inspection. Absent: tenderness, meningismus, lymphadenopathy Respiratory exam: Present: normal lung sounds bilaterally. Absent: respiratory distress, wheezes, rales, rhonchi, stridor Cardiovascular Exam: Present: regular rate, normal rhythm, normal heart sounds. Absent: systolic murmur, diastolic murmur, rubs, gallop, clicks GI/Abdominal exam: Present: soft, normal bowel sounds. Absent: distended, tenderness, guarding, rebound, rigid Extremities exam: Present: normal inspection, full ROM, normal capillary refill. Absent: tenderness, pedal edema, joint swelling, calf tenderness Back exam: Present: normal inspection Neurological exam: Present: alert, oriented X3, CN II-XII intact Psychiatric exam: Present: normal affect, normal mood Skin exam: Present: warm, dry, intact, normal color. Absent: rash Course Vital Signs 01/12/24 01/12/24 18:18 21:31 Temperature 97.7 F Pulse Rate 86 96 Respiratory 20 18 Rate Blood Pressure 166/97 156/90 O2 Sat by Pulse 98 98 Oximetry - Reevaluation(s) Reevaluation #1: 01/12/24 20:26 Medical records reviewed Reevaluation #2: 01/12/24 20:26 Patient has no change in symptoms here in the ER Reevaluation #3: 01/12/24 20:26 Patient has had members at bedside, sister who states patient has been inappropriate, making threats both of her another staff at facility Reevaluation #4: Was pt. sent in by a medical professional or institution (, PA, ATTENDING UROLOGIST, urgent care, hospital, or [facility]...) When possible be specific @ -no Did you speak to anyone other than the patient for history (EMS, parent, family, police, friend...)? What history was obtained from this source @ -no Did you review nursing and triage notes (agree or disagree)? Why? @ -agree Are old charts reviewed (outside hosp., previous admission, EMS record, old EKG, old radiological studies, urgent care reports/EKG's, [facility] records)? Report findings @ -yes Differential Diagnosis (chest pain, altered mental status, abdominal pain women, abdominal pain men, vaginal bleeding, weakness, fever, dyspnea, syncope, headache, dizziness, GI bleed, back pain, seizure, CVA, palpatations, mental health, musculoskeletal)? @ -prior EKG interpreted by me (3pts min.). @ -yes X-rays interpreted by me (1pt min.). @ -no CT interpreted by me (1pt min.). @ -no U/S interpreted by me (1pt. min.). @ -no What testing was considered but not performed or refused? (CT, X-rays, U/S, labs)? Why? @ -none What meds were considered but not given or refused? Why? @ -none Did you discuss the management of the patient with other professionals (professionals i.e. , PA, ATTENDING UROLOGIST, lab, RT, psych nurse, vp digital marketing social media and crm, animal shelter clerk, teacher, senior major gifts officer, telephonic case manager)? Give summary @ -no Was smoking cessation discussed for >3mins.? @ -no Was critical care preformed (if so, how long)? @ -no Were there social determinants of health that impacted care today? How? (Homelessness, low income, unemployed, alcoholism, drug addiction, transportation, low edu. Level, literacy, decrease access to med. care, half-way, rehab)? @ -none Was there de-escalation of care discussed even if they declined (Discuss DNR or withdrawal of care, Hospice)? DNR status @ -no What co-morbidities impacted this encounter? (DM, HTN, Smoking, COPD, CAD, Cancer, CVA, ARF, Chemo, Hep., AIDS, mental health diagnosis, sleep apnea, morbid obesity)? @ -none Was patient admitted / discharged? Hospital course, mention meds given and route, prescriptions, significant lab abnormalities, going to OR and other pertinent info. @ - 68 male with altered mental status hyponatremia mood disorder, patient has had some recent medication changes which do not seem to be helping, patient has multiple ER visits recently for similar symptoms with both homicidal and suicidal current thoughts Admitted Undiagnosed new problem with uncertain prognosis? @ -no Drug Therapy requiring intensive monitoring for toxicity (Heparin, Nitro, Insulin, Cardizem)? @ -no Were any procedures done? @ -no Diagnosis/symptom? @ -Mood disorder, altered mental status Acute, or Chronic, or Acute on Chronic? @ -Acute Uncomplicated (without systemic symptoms) or Complicated (systemic symptoms)? @ -Complicated Side effects of treatment? @ -no Exacerbation, Progression, or Severe Exacerbation? @ -exacerbation Poses a threat to life or bodily function? How? (Chest pain, USA, VT, pneumonia, PE, COPD, DKA, ARF, appy, cholecystitis, CVA, Diverticulitis, Homicidal, Suicidal, threat to staff... and all critical care pts) @ -Extremes of age Reevaluation #5: Differential Mental Health Depression, anxiety, bipolar, psychosis, schizophrenia, borderline personality, situational depression, adjustment disorder, behavioral disorder, brain tumor, malingering, substance abuse, encephalopathy, medication reaction, dementia, hypothyroidism, degenerative neurologic disorder, lupus.... This is not meant to be all-inclusive list Differential Altered Mental Status: Hypoglycemia, DKA, hypercapnia, ETOH, overdose, CO poisoning, trauma, myxedema coma, HTN encephalopathy, infection, encephalitis, psychosis, intercranial hemo rrhage, hepatic encephalopathy, meningitis, CVA, this is not meant to be an all- inclusive list - Consultations Consultation #1: Spoke with sound who can admit this patient Medical Decision Making - Medical Decision Making 68 male with altered mental status hyponatremia mood disorder, patient has had some recent medication changes which do not seem to be helping, patient has multiple ER visits recently for similar symptoms with both homicidal and suicidal current thoughts - Lab Data Result diagrams: 01/13/24 05:38 01/14/24 05:17 Lab Results 01/12/24 01/12/24 01/12/24 Range/Units 19:23 19:23 19:23 WBC 7.5 (3.8-10.6) k/uL RBC 4.40 (4.30-5.90) m/uL Hgb 12.0 L (13.0-17.5) gm/dL Hct 37.6 L (39.0-53.0) % MCV 85.4 (80.0-100.0) fL MCH 27.2 (25.0-35.0) pg MCHC 31.8 (31.0-37.0) g/dL RDW 16.1 H (11.5-15.5) % Plt Count 247 (150-450) k/uL MPV 7.6 Neutrophils % 78 % Lymphocytes % 14 % Monocytes % 6 % Eosinophils % 0 % Basophils % 0 % Neutrophils # 5.8 (1.3-7.7) k/uL Lymphocytes # 1.1 (1.0-4.8) k/uL Monocytes # 0.5 (0-1.0) k/uL Eosinophils # 0.0 (0-0.7) k/uL Basophils # 0.0 (0-0.2) k/uL Anisocytosis Slight PT 10.7 (10.0-12.5) sec INR 1.0 (<1.2) APTT 25.3 (22.0-30.0) sec Sodium 128 L (137-145) mmol/L Potassium 3.9 (3.5-5.1) mmol/L Chloride 97 L (98-107) mmol/L Carbon Dioxide 25 (22-30) mmol/L Anion Gap 6 mmol/L BUN 6 L (9-20) mg/dL Creatinine 0.76 (0.66-1.25) mg/dL Est GFR (CKD-EPI)AfAm >90 (>60 ml/min/1.73 sqM) Est GFR (CKD-EPI)NonAf >90 (>60 ml/min/1.73 sqM) Glucose 105 H (74-99) mg/dL Plasma Lactic Acid Rene (0.7-2.0) mmol/L Calcium 8.7 (8.4-10.2) mg/dL Phosphorus 4.0 (2.5-4.5) mg/dL Magnesium 1.9 (1.6-2.3) mg/dL Total Bilirubin 0.7 (0.2-1.3) mg/dL AST 21 (17-59) U/L ALT 12 (4-49) U/L Alkaline Phosphatase 82 (38-126) U/L Troponin I (0.000-0.034) ng/mL NT-Pro-B Natriuret Pep 43 pg/mL Total Protein 5.8 L (6.3-8.2) g/dL Albumin 3.9 (3.5-5.0) g/dL 01/12/24 01/12/24 Range/Units 19:23 19:23 WBC (3.8-10.6) k/uL RBC (4.30-5.90) m/uL Hgb (13.0-17.5) gm/dL Hct (39.0-53.0) % MCV (80.0-100.0) fL MCH (25.0-35.0) pg MCHC (31.0-37.0) g/dL RDW (11.5-15.5) % Plt Count (150-450) k/uL MPV Neutrophils % % Lymphocytes % % Monocytes % % Eosinophils % % Basophils % % Neutrophils # (1.3-7.7) k/uL Lymphocytes # (1.0-4.8) k/uL Monocytes # (0-1.0) k/uL Eosinophils # (0-0.7) k/uL Basophils # (0-0.2) k/uL Anisocytosis PT (10.0-12.5) sec INR (<1.2) APTT (22.0-30.0) sec Sodium (137-145) mmol/L Potassium (3.5-5.1) mmol/L Chloride (98-107) mmol/L Carbon Dioxide (22-30) mmol/L Anion Gap mmol/L BUN (9-20) mg/dL Creatinine (0.66-1.25) mg/dL Est GFR (CKD-EPI)AfAm (>60 ml/min/1.73 sqM) Est GFR (CKD-EPI)NonAf (>60 ml/min/1.73 sqM) Glucose (74-99) mg/dL Plasma Lactic Acid Rene 0.6 L (0.7-2.0) mmol/L Calcium (8.4-10.2) mg/dL Phosphorus (2.5-4.5) mg/dL Magnesium (1.6-2.3) mg/dL Total Bilirubin (0.2-1.3) mg/dL AST (17-59) U/L ALT (4-49) U/L Alkaline Phosphatase (38-126) U/L Troponin I <0.012 (0.000-0.034) ng/mL NT-Pro-B Natriuret Pep pg/mL Total Protein (6.3-8.2) g/dL Albumin (3.5-5.0) g/dL - EKG Data -: EKG Interpreted by Me (EKG sinus 79 [place] 145 QRS 93 QTc 428) Disposition Clinical Impression: Paranoia, Acute anxiety, Schizophrenia, Panic attack, Anxiety, Hyponatremia Disposition: ADMITTED IP TO THIS HOSP Condition: Stable Is patient prescribed a controlled substance at d/c from ED?: No Time of Disposition: 20:30
[2024-01-12 19:51] LABS: ALT 12 U/L (4-49); AST 21 U/L (17-59); African American GFR (CKD) >90 (>60 ml/min/1.73 sqM); Albumin 3.9 g/dL (3.5-5.0); Alkaline Phosphatase 82 U/L (38-126); Anion Gap 6 mmol/L; Blood Urea Nitrogen 6 mg/dL (9-20); Calcium 8.7 mg/dL (8.4-10.2); Carbon Dioxide 25 mmol/L (22-30); Chloride 97 mmol/L (98-107); Glucose 105 mg/dL (74-99); Magnesium 1.9 mg/dL (1.6-2.3); Non-African American GFR(CKD) >90 (>60 ml/min/1.73 sqM); Potassium 3.9 mmol/L (3.5-5.1); Sodium 128 mmol/L (137-145); Total Bilirubin 0.7 mg/dL (0.2-1.3); Total Protein 5.8 g/dL (6.3-8.2)
[2024-01-12 20:00] LABS: NT-Pro-B-Type Natriuretic Pept 43 pg/mL
[2024-01-12] MEDS: SODIUM CHLORIDE 0.9% 1,000 ML IV STA (20:06)
[2024-01-12] MEDS ORDERED: NALOXONE 0.4 MG/ML 1 ML VIAL IV PRN (20:19)
[2024-01-12] MEDS ORDERED: ONDANSETRON 4 MG/2 ML VIAL IVP PRN (20:19)
[2024-01-12] MEDS: hydrALAZINE HCL 25 MG TAB PO STA (22:28)
[2024-01-12] MEDS: SODIUM CHLORIDE 0.9% 1,000 ML IV SCH (22:30)
--- NOTE | 2024-01-13 05:03 | P.HPIM ---
History of Present Illness H&P Date: 01/13/24 Patient is a 68-year-old male with a PMH of Parkinson's disease with cognitive impairment, schizophrenia, panic disorder, CAD status post pacemaker placement, hypertension, hyperlipidemia, BPH, who was brought into the emergency room sent from [facility] via EMS due to patient reported strange thoughts. Patient states that he has been having the urge to hurt someone over the past few days but that he also has not been feeling quite like himself during this time. The patient's only complaint is bilateral toe numbness which has been ongoing for the past several months. Patient denies experiencing chest discomfort, shortness of breath, fever, chills, cough, nausea, vomiting, abdominal pain, diarrhea. The patient's baseline mental status is reportedly ANO x 4 although he has a history of cognitive impairment documented in the chart. EKG in the emergency room revealed sinus rhythm at [address]/T wave changes noted as reviewed by me. Laboratory evaluation was remarkable for sodium 128, chloride 97, troponin less than 0.012 and proBNP 43 with glucose 105. ED documentation reviewed and case discussed with ED provider. [] Review of systems: Pertinent positives and negatives as discussed in HPI, a complete review of systems was performed and all other systems are negative. Physical examination: Vital signs reviewed General: non toxic, no distress, appears at stated age, normal weight Derm: no unusual rashes/lesions, warm Head: atraumatic, normocephalic, symmetric Eyes: EOMI, no lid lag, anicteric sclera, pupils equal round reactive to light ENT: Nose and ears atraumatic Neck: No cervical lymphadenopathy, trachea midline, supple Mouth: no lip lesion, mucus membranes moist Cardiovascular: S1S2 reg, no murmur, positive dorsalis pedis pulse bilateral, no edema Lungs: CTA bilateral, no rhonchi, no rales, no accessory muscle use Abdominal: soft, nontender to palpation, no guarding Ext: muscle strength 4 out of 5 in all 4 extremities grossly, no gross muscle atrophy, no contractures, Neuro: CN II-XI grossly intact, no gross focal neuro deficits Psych: Alert, oriented to person and place, not fully oriented to time Assessment: Altered mental status, reported to be worse than baseline with history of Parkinson's Hypochloremic hyponatremia, suspect due to poor oral intake Chronic conditions: CAD, hypertension, hyperlipidemia, BPH, schizophrenia, panic disorder Imaging: EKG in the emergency room revealed sinus rhythm at [address]/T wave changes noted as reviewed by me. Data Review: Laboratory evaluation was remarkable for sodium 128, chloride 97, troponin less than 0.012 and proBNP 43 with glucose 105. Plan: Psychiatry consulted Continue IV fluids with normal saline 130 cc/h Monitor BMP Resume home medications once reconciled DVT prophylaxis: Lovenox subcu The patient is admitted with a less greater than 2 midnight stay for evaluation of AMS CODE STATUS: Full Code Discussed with: Patient Anticipated discharge place: [facility] Past Medical History Past Medical History: Hyperlipidemia, Hypertension, Myocardial Infarction (PA) Additional Past Medical History / Comment(s): renal CA with surgery, parkinson's Last Myocardial Infarction Date:: unknown History of Any Multi-Drug Resistant Organisms: None Reported Past Surgical History: Heart Catheterization With Stent, Orthopedic Surgery Additional Past Surgical History / Comment(s): cryoablation for renal CA, Heart Catheterization 04/23/2021, Past Anesthesia/Blood Transfusion Reactions: No Reported Reaction Date of Last Stent Placement:: 04/23/21 Type of Cardiac Device: Biventricular Pacemaker, Unknown Device Placement Date:: unknown Past Psychological History: Depression, Panic Disorder, Schizophrenia Additional Psychological History / Comment(s): patient resides alone at [facility] Smoking Status: Never smoker Past Alcohol Use History: None Reported Past Drug Use History: None Reported - Past Family History Family Family Medical History: Hyperlipidemia Medications and Allergies Home Medications Medication Instructions Recorded Confirmed Type Omeprazole 40 mg PO AC-BRKFST@0800 12/09/20 12/31/23 History Aspirin 81 mg PO DAILY@0700 07/28/21 12/31/23 History cloZAPine [Clozaril] 300 mg PO HS@1900 02/03/22 12/31/23 History Atorvastatin [Lipitor] 80 mg PO HS@1900 07/04/22 12/31/23 History Clopidogrel [Plavix] 75 mg PO DAILY@0700 07/04/22 12/31/23 History cloZAPine [Clozaril] 200 mg PO BID@0700,1500 07/04/22 12/31/23 History Carbidopa-Levodopa 25-100 mg 1 tab PO QID@07,11,15,19 05/31/23 12/31/23 History [Sinemet 25-100 mg] Tamsulosin [Flomax] 0.4 mg PO HS@1900 05/31/23 12/31/23 History Sennosides/Docusate Sodium [Senna 1 tab PO TID PRN 06/14/23 12/31/23 History Plus 8.6-50 mg Tablet] Lidocaine 5% Patch [Lidoderm 5% 1 patch TRANSDERM DAILY PRN 09/27/23 12/31/23 History Patch] Acetaminophen Tab [Tylenol] 1,000 mg PO BID PRN MDD 2000 mg 11/18/23 12/31/23 History haloperidoL [Haldol] 2 mg PO BID PRN #20 tablet 12/22/23 12/31/23 Rx Midodrine HCl [ProAmantine] 2.5 mg PO BID@0800,1500 12/24/23 12/31/23 History Sodium Chloride Tab 1 gm PO DAILY@0800 12/24/23 12/31/23 History Metoprolol Succinate (ER) [Toprol 12.5 mg PO DAILY@0800 12/31/23 12/31/23 History XL] clonazePAM [KlonoPIN ODT] 0.25 mg PO TID@0700,1500,1900 12/31/23 12/31/23 History Allergies Allergy/AdvReac Type Severity Reaction Status Date / Time No Known Allergies Allergy Verified 12/31/23 13:17 Physical Exam Vitals: Vital Signs Temp Pulse Pulse Resp BP BP Pulse Ox 01/13/24 02:00 98.0 F 77 16 115/72 94 L 01/12/24 21:59 185/101 01/12/24 21:56 97.6 F 72 16 181/102 97 01/12/24 21:31 96 18 156/90 98 01/12/24 18:18 97.7 F 86 20 166/97 98 Intake and Output 01/12/24 01/12/24 01/13/24 14:59 22:59 06:59 Other: Weight 88.451 kg Results CBC & Chem 7: 01/12/24 19:23 01/12/24 19:23 Labs: Abnormal Lab Results - Last 24 Hours (Table) 01/12/24 01/12/24 01/12/24 Range/Units 19:23 19:23 19:23 Hgb 12.0 L (13.0-17.5) gm/dL Hct 37.6 L (39.0-53.0) % RDW 16.1 H (11.5-15.5) % Sodium 128 L (137-145) mmol/L Chloride 97 L (98-107) mmol/L BUN 6 L (9-20) mg/dL Glucose 105 H (74-99) mg/dL Plasma Lactic Acid Rene 0.6 L (0.7-2.0) mmol/L Total Protein 5.8 L (6.3-8.2) g/dL Thrombosis Risk Factor Assmnt - Choose All That Apply Any of the Below Risk Factors Present?: No Other Risk Factors: Yes Each Risk Factor Represents 2 Points: Age 61-74 years Thrombosis Risk Factor Assessment Total Risk Factor Score: 2 Thrombosis Risk Factor Assessment Level: Low Risk
[2024-01-13 08:43] LABS: ALT 15 U/L (10-49); AST 14 U/L (14-35); Albumin 3.9 g/dL (3.8-4.9); Alkaline Phosphatase 77 U/L (41-126); Blood Urea Nitrogen 6.6 mg/dL (9.0-27.0); Calcium 8.3 mg/dL (8.7-10.3); Chloride 103 mmol/L (96-109); Globulin 1.5 g/dL (1.6-3.3); Glucose 99 mg/dL (70-110); Lipase 19 U/L (14-60); Magnesium 2.1 mg/dL (1.5-2.4); Phosphorus 4.5 mg/dL (2.4-5.1); Potassium 4.1 mmol/L (3.5-5.5); Sodium 135 mmol/L (135-145); Total Bilirubin 0.4 mg/dL (0.3-1.2); Total Protein 5.4 g/dL (6.2-8.2)
[2024-01-13 08:44] LABS: Basophils # (A) 0.02 X 10*3/uL (0.00-0.10); Basophils % (A) 0.3 %; Eosinophils # (A) 0.01 X 10*3/uL (0.04-0.35); Eosinophils % (A) 0.2 %; HCT 34.7 % (39.6-50.0); HGB 11.4 g/dL (13.0-17.0); Lymphocytes # (A) 1.46 X 10*3/uL (0.90-5.00); Lymphocytes % (A) 22.1 %; MCH 27.5 pg (27.0-32.0); MCHC 32.9 g/dL (32.0-37.0); MCV 83.6 FL (80.0-97.0); Mean Platelet Volume 10.2 FL (9.5-12.2); Monocytes # (A) 0.56 X 10*3/uL (0.20-1.00); Monocytes % (A) 8.5 %; NRBC Per 100 WBC 0 X 10*3/uL (0.00-0.01); Neutrophils # (A) 4.52 X 10*3/uL (1.80-7.70); Neutrophils % (A) 68.4 %; Platelet Count 276 X 10*3/uL (140-440); RBC 4.15 X 10*6/uL (4.40-5.60); RDW 17.2 % (11.5-14.5)
[2024-01-13] MEDS: PANTOPRAZOLE 40 MG/10 ML VIAL IV SCH (08:49)
[2024-01-13] MEDS: ENOXAPARIN 40 MG/0.4 ML SYRINGE SQ SCH (08:50)
[2024-01-13] MEDS ORDERED: DOCUSATE 100 MG CAP PO PRN (14:50)
--- NOTE | 2024-01-13 14:56 | P.PN ---
Subjective Progress Note Date: 01/13/24 Hospital Course: 68-year-old male with history of Parkinson's disease, cognitive impairment, sc hizophrenia, panic disorder, CAD, pacemaker, hypertension, dyslipidemia, BPH presenting with altered mentation. EKG in the emergency room revealed sinus rhythm at [address]/T wave changes noted. Laboratory evaluation was remarkable for sodium 128, chloride 97, troponin less than 0.012 and proBNP 43 with glucose 105. Subjective: Patient seen and examined at bedside. No acute events overnight. Denies any suicidal or homicidal ideations. Pertinent positives and negatives as discussed above, a complete review of systems was performed and all other systems are negative. Vitals Signs Reviewed. General: Nontoxic, no distress, appears at stated age Derm: Warm, dry Head: Atraumatic, normocephalic, symmetric Eyes: EOMI, no lid lag, anicteric sclera Mouth: No lip lesion, mucus membranes moist Cardiovascular: S1S2 reg, no murmur Lungs: CTA bilateral, no rhonchi, no rales, no accessory muscle use Abdominal: Soft, nontender to palpation, no guarding, no appreciable organomegaly Ext: No gross muscle atrophy, no edema, no contractures Neuro: CN II-XI grossly intact, no focal neuro deficits Psych: Alert, oriented, appropriate affect sitter at bedside. Data Reviewed Today: Pertinent Labs: WBC 6.6, hemoglobin 11.4, platelet 276, sodium 135, potassium 4.1, creatinine 1, magnesium 2.1 Imaging: No new imaging Assessment and Plan: Active: Hypovolemic hyponatremia, resolved Acute encephalopathy, likely metabolic -Sitter at bedside -Patient seems to be at his baseline now -Restarted home psychiatric medications, also started on Sinemet -Discontinue IV fluids -Repeat BMP tomorrow -Psychiatric consult, pending recommendations Chronic: Parkinson's disease, cognitive impairment, schizophrenia, panic disorder, CAD, hypertension, dyslipidemia, BPH DVT ppx: Lovenox Code status: Full code Anticipated discharge place: Pending clinical course pending clinical course Anticipated discharge time: Objective - Vital Signs Vital signs: Vital Signs Temp 97.2 F L 01/13/24 12:18 Pulse 72 01/13/24 12:18 Resp 16 01/13/24 12:18 BP 146/86 01/13/24 12:18 Pulse Ox 99 01/13/24 12:18 FiO2 Intake & Output 01/12/24 01/13/24 01/13/24 18:59 06:59 18:59 Intake Total 590 Balance 590 Weight 88.451 kg 88.451 kg Intake: Oral 590 Other: # Voids 5 - Labs CBC & Chem 7: 01/13/24 05:38 01/13/24 05:38 Labs: Abnormal Lab Results - Last 24 Hours (Table) 01/12/24 01/12/24 01/12/24 Range/Units 19:23 19:23 19:23 RBC (4.40-5.60) X 10*6/uL Hgb 12.0 L (13.0-17.5) gm/dL Hct 37.6 L (39.0-53.0) % RDW 16.1 H (11.5-15.5) % Eosinophils # (0.04-0.35) X 10*3/uL Sodium 128 L (137-145) mmol/L Chloride 97 L (98-107) mmol/L Carbon Dioxide (21.6-31.8) mmol/L BUN 6 L (9-20) mg/dL BUN/Creatinine Ratio (12.00-20.00) Ratio Glucose 105 H (74-99) mg/dL Plasma Lactic Acid Rene 0.6 L (0.7-2.0) mmol/L Calcium (8.7-10.3) mg/dL Total Protein 5.8 L (6.3-8.2) g/dL Globulin (1.6-3.3) g/dL 01/13/24 01/13/24 Range/Units 05:38 05:38 RBC 4.15 L (4.40-5.60) X 10*6/uL Hgb 11.4 L (13.0-17.5) gm/dL Hct 34.7 L (39.0-53.0) % RDW 17.2 H (11.5-15.5) % Eosinophils # 0.01 L (0.04-0.35) X 10*3/uL Sodium (137-145) mmol/L Chloride (98-107) mmol/L Carbon Dioxide 21.0 L (21.6-31.8) mmol/L BUN 6.6 L (9-20) mg/dL BUN/Creatinine Ratio 6.60 L (12.00-20.00) Ratio Glucose (74-99) mg/dL Plasma Lactic Acid Rene (0.7-2.0) mmol/L Calcium 8.3 L (8.7-10.3) mg/dL Total Protein 5.4 L (6.3-8.2) g/dL Globulin 1.5 L (1.6-3.3) g/dL
[2024-01-13] MEDS: clonazePAM 0.5 MG TAB PO SCH (16:43)
[2024-01-13] MEDS: MIDODRINE 5 MG TAB PO SCH (16:44)
[2024-01-13] MEDS: CARBIDOPA-LEVODOPA 25-100 MG 1 EACH TAB PO SCH (16:44)
[2024-01-13] MEDS: ERGOCALCIFEROL 1,250 MCG (50,000 IU) CAPSULE PO SCH (16:45)
[2024-01-13] MEDS: cloZAPine 100 MG TAB PO SCH ×2 (16:45→20:03)
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
[2024-01-13] MEDS: ACETAMINOPHEN TAB 500 MG TAB PO PRN (20:03)
[2024-01-13] MEDS: TAMSULOSIN 0.4 MG CAP.ER.24H PO SCH (20:03)
[2024-01-13] MEDS: ATORVASTATIN 80 MG TAB PO SCH (20:03)
[2024-01-14 06:26] LABS: African American GFR (CKD) >90 (>60 ml/min/1.73 sqM); Anion Gap 7 mmol/L; Blood Urea Nitrogen 7 mg/dL (9-20); Calcium 8.6 mg/dL (8.4-10.2); Carbon Dioxide 24 mmol/L (22-30); Chloride 102 mmol/L (98-107); Glucose 91 mg/dL (74-99); Non-African American GFR(CKD) 85 (>60 ml/min/1.73 sqM); Potassium 4.1 mmol/L (3.5-5.1); Sodium 133 mmol/L (137-145)
[2024-01-14] MEDS ORDERED: SODIUM CHLORIDE TAB 1 GM TAB PO SCH (08:00)
[2024-01-14 08:15] VITALS: BP 135/76; PULSE 76; RESP 17; TEMP 98.4
[2024-01-14] MEDS: ASPIRIN 81 MG PO SCH (08:43)
[2024-01-14] MEDS: CYANOCOBALAMIN 500 MCG TAB PO SCH (08:43)
[2024-01-14] MEDS: CLOPIDOGREL 75 MG TAB PO SCH (08:43)
[2024-01-14] MEDS: PANTOPRAZOLE 40 MG TABLET PO SCH (08:43)
[2024-01-14] MEDS: MULTIVITAMINS, THERA 1 EACH TAB PO SCH (08:44)
[2024-01-14] MEDS: METOPROLOL SUCCINATE (ER) 25 MG TAB.ER.24H PO SCH (08:44)
--- NOTE | 2024-01-14 14:34 | P.DS ---
Providers Date of admission: 01/12/24 20:19 Expected date of discharge: 01/14/24 Attending physician: Qiana Best MD Consults: 01/12/24 20:19 Consult Physician Routine Consulting Provider: Onofre Elizondo Consult Reason/Comments: psych,ams,mood Do you want consulting provider notified?: Yes Primary care physician: [facility] Hospital Course: Discharge Diagnosis: Hypovolemic hyponatremia, resolved Acute encephalopathy, likely metabolic Parkinson's disease cognitive impairment schizophrenia panic disorder CAD hypertension dyslipidemia BPH Hospital Course: 68-year-old male with history of Parkinson's disease, cognitive impairment, schizophrenia, panic disorder, CAD, pacemaker, hypertension, dyslipidemia, BPH presenting with altered mentation. EKG in the emergency room revealed sinus rhythm at [address]/T wave changes noted. Laboratory evaluation was remarkable for sodium 128, chloride 97, troponin less than 0.012 and proBNP 43 with glucose 105. Was evaluated by psychiatry. Recommended outpatient follow- up at the [facility]. Sodium level stable at the time of discharge. Continue home sodium chloride tabs. Patient seen and examined at bedside. Vital signs reviewed and stable. General: Nontoxic, no distress, appears at stated age Derm: Warm, dry Head: Atraumatic, normocephalic, symmetric Eyes: EOMI, no lid lag, anicteric sclera Mouth: No lip lesion, mucus membranes moist Cardiovascular: S1S2 reg, no murmur Lungs: CTA bilateral, no rhonchi, no rales, no accessory muscle use Abdominal: Soft, nontender to palpation, no guarding, no appreciable organomegaly Ext: No gross muscle atrophy, no edema, no contractures Neuro: CN II-XI grossly intact, no focal neuro deficits Psych: Alert, oriented, appropriate affect A total of 33 minutes of time were spent preparing this complex discharge summary. Patient was discharged on 01/14/2024 at 912. Patient Condition at Discharge: Stable Plan - Discharge Summary Discharge Rx Participant: Yes New Discharge Prescriptions: Continue Omeprazole 40 mg PO AC-BRKFST@0800 cloZAPine [Clozaril] 300 mg PO HS@1900 Carbidopa-Levodopa 25-100 mg [Sinemet 25-100 mg] 1 tab PO QID@07,11,15,19 Acetaminophen Tab [Tylenol] 1,000 mg PO BID PRN MDD 2000 mg PRN Reason: Fever And/ Or Pain haloperidoL [Haldol] 2 mg PO BID PRN #20 tablet PRN Reason: Agitation Or Acute Psychosis Metoprolol Succinate (ER) [Toprol XL] 12.5 mg PO DAILY@0800 Cyanocobalamin (Vitamin B-12) [Vitamin B-12] 1,000 mcg PO DAILY@0800 Docusate [Colace] 100 mg PO TID PRN PRN Reason: Constipation Aspirin 81 mg PO DAILY@0700 cloZAPine [Clozaril] 200 mg PO BID@0700,1500 Clopidogrel [Plavix] 75 mg PO DAILY@0700 Atorvastatin [Lipitor] 80 mg PO HS@1900 Tamsulosin [Flomax] 0.4 mg PO HS@1900 Lidocaine 5% Patch [Lidoderm 5% Patch] 1 patch TRANSDERM DAILY PRN PRN Reason: Pain Sodium Chloride Tab 1 gm PO DAILY@0800 Midodrine HCl [ProAmantine] 2.5 mg PO BID@0800,1500 clonazePAM [KlonoPIN ODT] 0.25 mg PO TID@0700,1500,1900 Ergocalciferol (Vitamin D2) [Drisdol (50,000 Iu)] 1,250 mcg PO WE Multivitamins, Thera [Multivitamin (formulary)] 1 tab PO DAILY@0800 Discharge Medication List Omeprazole 40 mg PO AC-BRKFST@0800 12/09/20 [History] Aspirin 81 mg PO DAILY@0700 07/28/21 [History] cloZAPine [Clozaril] 300 mg PO HS@1900 02/03/22 [History] Atorvastatin [Lipitor] 80 mg PO HS@1900 07/04/22 [History] Clopidogrel [Plavix] 75 mg PO DAILY@0700 07/04/22 [History] cloZAPine [Clozaril] 200 mg PO BID@0700,1500 07/04/22 [History] Carbidopa-Levodopa 25-100 mg [Sinemet 25-100 mg] 1 tab PO QID@07,11,15,19 05/31/23 [History] Tamsulosin [Flomax] 0.4 mg PO HS@1900 05/31/23 [History] Lidocaine 5% Patch [Lidoderm 5% Patch] 1 patch TRANSDERM DAILY PRN 09/27/23 [History] Acetaminophen Tab [Tylenol] 1,000 mg PO BID PRN MDD 2000 mg 11/18/23 [History] haloperidoL [Haldol] 2 mg PO BID PRN #20 tablet 12/22/23 [Rx] Midodrine HCl [ProAmantine] 2.5 mg PO BID@0800,1500 12/24/23 [History] Sodium Chloride Tab 1 gm PO DAILY@0800 12/24/23 [History] Metoprolol Succinate (ER) [Toprol XL] 12.5 mg PO DAILY@0800 12/31/23 [History] clonazePAM [KlonoPIN ODT] 0.25 mg PO TID@0700,1500,1900 12/31/23 [History] Cyanocobalamin (Vitamin B-12) [Vitamin B-12] 1,000 mcg PO DAILY@0800 01/13/24 [History] Docusate [Colace] 100 mg PO TID PRN 01/13/24 [History] Ergocalciferol (Vitamin D2) [Drisdol (50,000 Iu)] 1,250 mcg PO WE 01/13/24 [History] Multivitamins, Thera [Multivitamin (formulary)] 1 tab PO DAILY@0800 01/13/24 [History] Follow up Appointment(s)/Referral(s): [facility],Clinic [Primary Care Provider] - 1-2 days (Please call for follow up appointment.) Patient Instructions/Handouts: Dehydration (DC), Hyponatremia (DC) Activity/Diet/Wound Care/Special Instructions: Please see your psychiatrist. Discharge/Stand Alone Forms: Who Do I Call? Discharge Disposition: HOME SELF-CARE
== END 2024-01-14 13:42 | disposition home or self-care (01) ==
LOC: EC 18:10 → 5NMEDONC 20:19
PROVIDERS: ADMIT Internal Medicine; ATTEND Internal Medicine
DX: G93.41 Metabolic encephalopathy (principal); E87.1 Hypo-osmolality and hyponatremia; F41.0 Panic disorder [episodic paroxysmal anxiety]; F20.3 Undifferentiated schizophrenia; I10 Essential (primary) hypertension; E78.5 Hyperlipidemia, unspecified; G20.A1 Parkinson's disease without dyskinesia, without mention of fluctuations; F32.A Depression, unspecified; I25.10 Atherosclerotic heart disease of native coronary artery without angina pectoris; N40.0 Benign prostatic hyperplasia without lower urinary tract symptoms; I25.2 Old myocardial infarction; Z85.528 Personal history of other malignant neoplasm of kidney; Z95.0 Presence of cardiac pacemaker; Z95.5 Presence of coronary angioplasty implant and graft; Z79.82 Long term (current) use of aspirin; Z79.899 Other long term (current) drug therapy; Z79.02 Long term (current) use of antithrombotics/antiplatelets
CPT/HCPCS: 96361 ×4; 96372 ×2; 96374; 82075; 99285; 36415; 94760; 93005; 83880; 80053 ×2; 80048; 83605; 83690; 83735 ×2; 84100 ×2; 84484; 85025 ×2; 85610; 85730; G0378 ×3; J1650 ×2; S0136 ×2; C9113